=== PATIENT | female | born 1960 | race Hispanic/Latino ===

== ENCOUNTER 2018-02-20 13:18 | Emergency (ER) | payer SELFPAY ==
[2018-02-20 16:20] LABS: Urine Blood NEGATIVE (NEG); Urine Glucose 2+ (NEG); Urine Protein NEGATIVE (NEG); Urine pH 5.5 (5.0-7.0)
[2018-02-20] MEDS ORDERED: MORPHINE 4 MG/ML SYR ONE (16:38)
[2018-02-20] MEDS ORDERED: ONDANSETRON 4 MG/2 ML VIAL ONE (16:38)
[2018-02-20] MEDS ORDERED: NA CHLORIDE 0.9% 1,000 ML ONE (16:39)
[2018-02-20 16:42] LABS: Absolute Lymphocytes (CBC) 2.9 K/uL (0.7-4.9); Absolute Monocytes 0.6 K/uL (0.1-1.3); Absolute Neutrophil 6.2 K/uL (1.8-8.0); Basophils % 0.6 % (0-1.3); Eosinophils % 1.3 % (0-4.4); Hematocrit 40.7 % (36.0-45.0); Lymphocytes % 29.4 % (15.3-44.8); MCH 30.6 pg (27.0-35.0); MPV 9.9 fL (7.6-11.3); Monocytes % 6.1 % (3.3-12.3); RBC Red Blood Cell Count 4.57 M/uL (3.86-4.86)
[2018-02-20 16:51] LABS: Urine Bacteria >50 /HPF (<20); Urine Culture Reflex Order REFLEXED; Urine RBC <5 /HPF (NONE SEEN)
[2018-02-20 16:56] LABS: Bicarbonate 26 mEq/L (21-31); Glucose Level 320 mg/dL (65-120); Lipase 86 U/L (22-51); Sodium Level 134 mEq/L (135-145)
[2018-02-20 17:02] LABS: ALT/SGPT 18 IU/L (10-60); AST/SGOT 21 IU/L (10-42); Albumin 3.8 g/dL (3.2-5.5); Alkaline Phosphatase 81 IU/L (42-121); Amylase Level 124 U/L (28-100); BUN Blood Urea Nitrogen 11 mg/dL (6-20); Bilirubin Direct 0.1 mg/dL (0-0.2); Bilirubin Total 0.4 mg/dL (0.3-1.2); Protein, Total 6.7 g/dL (6.0-8.3)
--- NOTE | 2018-02-20 17:53 | RAD REPORT ---
EXAM DESCRIPTION: CT - Abdomen Pelvis W Contrast - 02/20/2018 5:38 pm CLINICAL HISTORY: Abdominal pain COMPARISON: CT study March 2016 TECHNIQUE: Biphasic, helical CT imaging of the abdomen and pelvis was performed following 100 ml non -ionic IV contrast. Oral contrast was given. All CT scans are performed using dose optimization technique as appropriate and may include automated exposure control or mA/KV adjustment according to patient size. FINDINGS: No suspicious findings in the lung bases. No pericardial thickening or effusion. Liver is borderline fatty infiltrated. No focal liver lesions seen. Spleen and pancreas also without suspicious finding. Gallbladder and biliary tree are also without suspicious finding. Gallstones can be occult. Symmetric renal function is seen with no hydronephrosis or suspicious renal mass. No pyelonephritis o r acute renal parenchymal process. No urinary bladder abnormality. Uterus and ovaries also without romeo spicious finding. No fallopian tube dilatation. No gastric dilatation or gastric wall thickening. A few prominent but nondilated small bowel loops ar e present. This could be an nonspecific enteritis. Moderate stool volume in the colon with no active colon process identifiable. No free air, free fluid or inflammatory stranding. No mass or bulky lymphadenopathy. There is a sm all 2 centimeter, narrow neck hernia to right of midline. This is positioned between the umbilicus an d the scar. No bowel involvement. No congestion or edema. No adrenal abnormality. No suspicious bony findings. IMPRESSION: No obstruction, free air or surgically emergent finding. A few prominent small bowel loops are present and could indicated nonspecific enteritis. There is a small 2 centimeter fat filled hernia just to the right of midline between the umbilicus an d the scar. No significant congestion or edema. This is possibly symptomatic.
--- NOTE | 2018-02-20 18:42 | EDPHYS ---
Physician Documentation [facility] Name: Chasidy Mckenzie Age: 57 yrs Sex: Female : 1960 Arrival Date: 02/20/2018 Time: 13:18 Bed 26 Private MD: Alyssa Arita H ED Physician Bertrand Gongora HPI: 02/20 23:34 This 57 yrs old Female presents to ER via Ambulatory with complaints of kdr Abdominal Pain. 23:34 The patient presents with abdominal pain in the periumbilical area. Onset: The kdr symptoms/episode began/occurred For months if not a year or more. She has seen Dr. Arita for this problem but they claim that he does not examine her and just writes scrips for her to take.. The symptoms radiate to the right flank. Associated signs and symptoms: none. The symptoms are described as achy, burning, intermittent, vague. Modifying factors: The symptoms are alleviated by nothing, the symptoms are aggravated by movement, touching the area. Severity of pain: At its worst the pain was mild moderate just prior to arrival, in the emergency department the pain has improved moderately. The patient has experienced similar episodes in the past, chronically, but today's symptoms are worse, more painful. The patient has been recently seen by a physician: Dr. Arita. 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 - Social history:: Smoking status: Patient/guardian denies using tobacco. - Ebola Screening: : Patient denies exposure to infectious person Patient denies travel to an Ebola-affected area in the 21 days before illness onset. ROS: 23:34 Constitutional: Negative for fever, chills, and weight loss, Eyes: Negative for injury, kdr pain, redness, and discharge, ENT: Negative for injury, pain, and discharge, Neck: Negative for injury, pain, and swelling, Cardiovascular: Negative for chest pain, palpitations, and edema, Respiratory: Negative for shortness of breath, cough, wheezing, and pleuritic chest pain, Back: Negative for injury and pain, : Negative for injury, bleeding, discharge, and swelling, MS/Extremity: Negative for injury and deformity, Skin: Negative for injury, rash, and discoloration, Neuro: Negative for headache, weakness, numbness, tingling, and seizure activity. Psych: Negative for depression, anxiety, suicide ideation, homicidal ideation, and hallucinations, Allergy/Immunology: Negative for hives, rash, and allergies, Endocrine: Negative for neck swelling, polydipsia, polyuria, polyphagia, and marked weight changes, Hematologic/Lymphatic: Negative for swollen nodes, abnormal bleeding, and unusual bruising. 23:34 Constitutional: The patient also c/o tenderness to her left breast and drainage from the left nipple 23:34 Abdomen/GI: Positive for abdominal pain, Negative for abdominal distension, black/tarry stool, rectal pain. 23:34 All other systems are negative. 23:34 All other systems are negative. Exam: 23:34 Constitutional: This is a well developed, well nourished patient who is awake, alert, kdr and in no acute distress. Head/Face: Normocephalic, atraumatic. Eyes: Pupils equal round and reactive to light, extra-ocular motions intact. Lids and lashes normal. Conjunctiva and sclera are non-icteric and not injected. Cornea within normal limits. Periorbital areas with no swelling, redness, or edema. Neck: Trachea midline, no thyromegaly or masses palpated, and no cervical lymphadenopathy. Supple, full range of motion without nuchal rigidity, or vertebral point tenderness. No Meningismus. Chest/axilla: Normal chest wall appearance and motion. Nontender with no deformity. No lesions are appreciated. Palpation of the left breast did not reveail any evidnece of infection, mastitis or masses. I was unable to express and drainage from the nipple Cardiovascular: Regular rate and rhythm with a normal S1 and S2. No gallops, murmurs, or rubs. Normal PMI, no JVD. No pulse deficits. Respiratory: Lungs have equal breath sounds bilaterally, clear to auscultation and percussion. No rales, rhonchi or wheezes noted. No increased work of breathing, no retractions or nasal flaring. Abdomen/GI: Soft, non-tender, with normal bowel sounds. No distension or tympany. No guarding or rebound. No evidence of tenderness throughout. Back: No spinal tenderness. No costovertebral tenderness. Full range of motion. Skin: Warm, dry with normal turgor. Normal color with no rashes, no lesions, and no evidence of cellulitis. MS/ Extremity: Pulses equal, no cyanosis. Neurovascular intact. Full, normal range of motion. Neuro: Awake and alert, GCS 15, oriented to person, place, time, and situation. Cranial nerves II-XII grossly intact. Motor strength 5/5 in all extremities. Sensory grossly intact. Cerebellar exam normal. Normal gait. Psych: Awake, alert, with orientation to person, place and time. Behavior, mood, and affect are within normal limits. Vital Signs: 13:48 BP 137 / 73; Pulse 88; Resp 16; Temp 98.6(TE); Pulse Ox 97% on R/A; Weight 56.7 kg; ss Height 5 ft. 0 in. (152.40 cm); Pain 8/10; 16:00 BP 132 / 77; Pulse 84; Resp 16; Pulse Ox 99% on R/A; kr2 18:00 BP 130 / 74; Pulse 88; Resp 17; Pulse Ox 99% on R/A; kr2 19:00 BP 138 / 80; Pulse 86; Resp 16; Pulse Ox 98% on R/A; kr2 13:48 Body Mass Index 24.41 (56.70 kg, 152.40 cm) ss MDM: 18:42 Patient medically screened. kdr 23:34 Data reviewed: vital signs, nurses notes, lab test result(s), radiologic studies. kdr Counseling: I had a detailed discussion with the patient and/or guardian regarding: the historical points, exam findings, and any diagnostic results supporting the discharge/admit diagnosis, lab results, radiology results, the need for outpatient follow up. Special discussion: Based on the patient's Hx, exam, and Dx evaluation, there is no indication for emergent surgery or inpatient Tx. It is understood by the patient/guardian that if the Sx's persist or worsen they need to return immediately for re-evaluation. I discussed with the patient/guardian in detail that at this point there is no indication for admission to the hospital. It is understood, however, that if the symptoms persist or worsen the patient needs to return immediately for re-evaluation. 02/20 16:18 Order name: Urine Dipstick--Ancillary (enter results); Complete Time: 17:41 02/20 16:30 Order name: Amylase, Serum; Complete Time: 17:41 02/20 16:30 Order name: Basic Metabolic Panel; Complete Time: 17:41 02/20 16:30 Order name: CBC with Diff; Complete Time: 17:41 02/20 16:30 Order name: Creatinine for Radiology; Complete Time: 17:41 02/20 16:30 Order name: Hepatic Function; Complete Time: 17:41 02/20 16:30 Order name: Lipase; Complete Time: 17:41 02/20 16:30 Order name: Urine Microscopic Only; Complete Time: 17:41 02/20 16:32 Order name: CT Abd/Pelvis - W/Contrast; Complete Time: 18:36 kdr 02/20 16:52 Order name: Urine Culture [facility] 02/20 18:21 Order name: Urine Dipstick--Ancillary (enter results) 02/20 16:30 Order name: IV Saline Lock; Complete Time: 16:31 02/20 16:30 Order name: Labs collected and sent; Complete Time: 16:31 02/20 16:31 Order name: Urine Dipstick-Ancillary (obtain specimen); Complete Time: 16:31 02/20 18:25 Order name: Straight Cath - Urine; Complete Time: 18:25 kr2 Administered Medications: 16:41 Drug: NS 0.9% 1000 ml Route: IV; Rate: 1 bolus; Site: right antecubital; kr2 16:41 Drug: morphine 2 mg Route: IVP; Site: right antecubital; kr2 16:41 Drug: Zofran 4 mg Route: IVP; Site: right antecubital; kr2 18:55 Drug: LevaQUIN 500 mg Route: PO; kr2 Disposition: 02/20/18 18:42 Discharged to Home. Impression: Urinary tract infection, site not specified, abdominal hernia. - Condition is Stable. - Discharge Instructions: Urinary Tract Infection, [id number], Antibiotic Use, [id number]. - Prescriptions for Cipro 500 mg Oral Tablet - take 1 tablet by ORAL route every 12 hours for 7 days; 14 tablet. - Medication Reconciliation Form, Thank You Letter, Antibiotic Education form. - Follow up: Alyssa Arita DO; When: 2 - 3 days; Reason: If symptoms return, Further diagnostic work-up, Recheck today's complaints, Continuance of care, Re-evaluation by your physician. - Problem is an ongoing problem. - Symptoms are unchanged. Signatures: Dispatcher [employer] [facility] Bertrand Gongora MD MD kdr Yesy Smith RN RN ss Dora Bhatia RN RN kr2 Corrections: (The following items were deleted from the chart) 18:21 16:52 Urine Culture ordered. [facility] 19:04 18:42 02/20/2018 18:42 Discharged to Home. Impression: Urinary tract infection, site kr2 not specified; abdominal hernia. Condition is Stable. Forms are Medication Reconciliation Form, Thank You Letter, Antibiotic Education, Prescription Opioid Use. Follow up: Alyssa Arita; When: 2 - 3 days; Reason: If symptoms return, Further diagnostic work-up, Recheck today's complaints, Continuance of care, Re-evaluation by your physician. Problem is an ongoing problem. Symptoms are unchanged. kdr
--- NOTE | 2018-02-20 18:42 | ER ---
Nurse's Notes [facility] Name: Chasidy Mckenzie Age: 57 yrs Sex: Female : 1960 Arrival Date: 02/20/2018 Time: 13:18 Bed 26 Private MD: Alyssa Arita H Diagnosis: Urinary tract infection, site not specified;abdominal hernia Presentation: 02/20 13:45 Presenting complaint: Child states: "she has been having pain from her belly button ss around to her R side and sometimes it gets swollen. We can feel it there is like ball." Denies, N/V/D. Symptoms began months ago. Transition of care: patient was not received from another setting of care. Onset of symptoms is unknown. Risk Assessment: Do you want to hurt yourself or someone else? Patient reports no desire to harm self or others. Initial Sepsis Screen: Does the patient meet any 2 criteria? No. Patient's initial sepsis screen is negative. Does the patient have a suspected source of infection? No. Patient's initial sepsis screen is negative. Care prior to arrival: None. 13:45 Method Of Arrival: Ambulatory ss 13:45 Acuity: RYAN 3 ss Triage Assessment: 15:50 General: Appears in no apparent distress. uncomfortable, Behavior is calm, cooperative, kr2 appropriate for age. 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 - Social history:: Smoking status: Patient/guardian denies using tobacco. - Ebola Screening: : Patient denies exposure to infectious person Patient denies travel to an Ebola-affected area in the 21 days before illness onset. Screenin:50 Abuse screen: Denies threats or abuse. Denies injuries from another. Nutritional kr2 screening: No deficits noted. Tuberculosis screening: No symptoms or risk factors identified. Fall Risk None identified. Assessment: 15:50 General: Appears in no apparent distress. uncomfortable, well groomed, well developed, kr2 well nourished, Behavior is calm, cooperative, appropriate for age. Pain: Complains of pain in right upper quadrant and right lower quadrant Pain currently is 8 out of 10 on a pain scale. Quality of pain is described as aching, tender, Pain began gradually, Is continuous, Alleviated by nothing. Aggravated by increased activity. Neuro: Level of Consciousness is awake, alert, obeys commands, Oriented to person, place, time, situation, Appropriate for age. Cardiovascular: Capillary refill < 3 seconds in bilateral fingers Patient's skin is warm and dry. Respiratory: Airway is patent Respiratory effort is even, unlabored, Respiratory pattern is regular, symmetrical. GI: Abdomen is flat, non-distended, Bowel sounds present X 4 quads. Abd is soft X 4 quads Abdomen is tender to palpation in right upper quadrant and right lower quadrant. : Urine is clear. EENT: Oral mucosa is moist. Derm: Skin is intact, is healthy with good turgor, Skin is pink, warm \\T\\ dry. Musculoskeletal: Circulation, motion, and sensation intact. 16:30 Reassessment: Patient appears in no apparent distress at this time. Patient and/or kr2 family updated on plan of care and expected duration. Pain level reassessed. Patient is alert, oriented x 3, equal unlabored respirations, skin warm/dry/pink. 17:30 Reassessment: Patient appears in no apparent distress at this time. Patient and/or kr2 family updated on plan of care and expected duration. Pain level reassessed. Patient is alert, oriented x 3, equal unlabored respirations, skin warm/dry/pink. Patient states feeling better. 18:30 Reassessment: Patient appears in no apparent distress at this time. Patient and/or kr2 family updated on plan of care and expected duration. Pain level reassessed. Patient is alert, oriented x 3, equal unlabored respirations, skin warm/dry/pink. Patient states feeling better. 19:00 Reassessment: Patient appears in no apparent distress at this time. Patient and/or kr2 family updated on plan of care and expected duration. Pain level reassessed. Patient is alert, oriented x 3, equal unlabored respirations, skin warm/dry/pink. Patient states feeling better. Vital Signs: 13:48 BP 137 / 73; Pulse 88; Resp 16; Temp 98.6(TE); Pulse Ox 97% on R/A; Weight 56.7 kg; ss Height 5 ft. 0 in. (152.40 cm); Pain 8/10; 16:00 BP 132 / 77; Pulse 84; Resp 16; Pulse Ox 99% on R/A; kr2 18:00 BP 130 / 74; Pulse 88; Resp 17; Pulse Ox 99% on R/A; kr2 19:00 BP 138 / 80; Pulse 86; Resp 16; Pulse Ox 98% on R/A; kr2 13:48 Body Mass Index 24.41 (56.70 kg, 152.40 cm) ED Course: 13:18 Patient arrived in ED. as 13:19 Alyssa Arita DO is Private Physician. as 13:47 Triage completed. ss 13:48 Arm band placed on right wrist. ss 15:50 Patient has correct armband on for positive identification. Bed in low position. Call kr2 light in reach. Side rails up X 1. Adult w/ patient. Pulse ox on. NIBP on. Door closed. Warm blanket given. Head of bed elevated. 16:04 Bertrand Gongora MD is Attending Physician. kdr 16:20 Dora Bhatia RN is Primary Nurse. kr2 16:31 Inserted saline lock: 20 gauge in right antecubital area, using aseptic technique. ss Blood collected. 17:00 Radiology exam delayed due to lab results not completed at this time. (BUN/Creatinine). nj 17:[address] via wheelchair. nj 17:38 CT completed. Patient tolerated procedure well. Patient moved back from CT. nj 17:38 CT Abd/Pelvis - W/Contrast In Process Unspecified. EDMS 18:24 Straight cath inserted, using sterile technique, Specimen obtained. Returned clear kr2 yellow urine. Patient tolerated well. 18:41 Alyssa Arita DO is Referral Physician. kdr 19:00 No provider procedures requiring assistance completed. IV discontinued, intact, kr2 bleeding controlled, No redness/swelling at site. Administered Medications: 16:41 Drug: NS 0.9% 1000 ml Route: IV; Rate: 1 bolus; Site: right antecubital; kr2 16:41 Drug: morphine 2 mg Route: IVP; Site: right antecubital; kr2 16:41 Drug: Zofran 4 mg Route: IVP; Site: right antecubital; kr2 18:55 Drug: LevaQUIN 500 mg Route: PO; kr2 Outcome: 18:42 Discharge ordered by . kdr 19:00 Discharged to home ambulatory, with family. kr2 19:00 Condition: good 19:00 Discharge instructions given to patient, family, Instructed on discharge instructions, follow up and referral plans. medication usage, Demonstrated understanding of instructions, follow-up care, medications, Prescriptions given X 1. 19:04 Patient left the ED. kr2 Addendum: 02/23/2018 07:20 Addendum: Culture Results: Positive urine culture. No further action required. Bacteria i w sensitive to prescribed antibiotic. Signatures: Dispatcher [employer] EDMS Bertrand Gongora MD MD kdr Martinez, Amelia as Williams, Irene, RN RN Yesy Smith RN RN ss Jordan, Nathan nj Reaves, Karey, RN RN kr2 Corrections: (The following items were deleted from the chart) 02/21 01:20 06 19:30 Reassessment: Patient appears in no apparent distress at this time. Patient kr2 and/or family updated on plan of care and expected duration. Pain level reassessed. Patient is alert, oriented x 3, equal unlabored respirations, skin warm/dry/pink. Patient states feeling better. kr2 02/21 01:22 01:22 LMP N/A - Post-menopause kr2 kr2
[2018-02-20] MEDS ORDERED: levoFLOXacin 500 MG TAB ONE (18:54)
[2018-02-20 20:25] VITALS: BP 137/73; TEMP 98.6; O2SAT 97
[2018-02-20 21:08] LABS: Urine Blood NEGATIVE (NEG); Urine Glucose 2+ (NEG); Urine Protein NEGATIVE (NEG)
== END 2018-02-20 19:04 | disposition home or self-care (01) ==
LOC: ER 13:18
DX: N39.0 Urinary tract infection, site not specified (principal); K46.9 Unspecified abdominal hernia without obstruction or gangrene; I10 Essential (primary) hypertension
CPT/HCPCS: 36415; 51702; 74177; 80048; 80076; 81003; 81015; 82150; 83690; 85025; 87077; 87086; 87088; 87186; 96374; 96375; 99284; J2405; J7030; Q9967

== ENCOUNTER 2018-04-17 14:40 | Emergency (ER) | payer SELFPAY ==
[2018-04-17] MEDS ORDERED: FENTANYL CITR 100 MCG/2 ML ONE (15:28)
[2018-04-17] MEDS ORDERED: ONDANSETRON 4 MG/2 ML VIAL ONE (15:28)
[2018-04-17 15:42] LABS: Urine Blood NEGATIVE (NEG); Urine Glucose 2+ (NEG); Urine Protein NEGATIVE (NEG); Urine Specific Gravity 1.005 (1.005-1.030); Urine pH 5.5 (5.0-7.0)
--- NOTE | 2018-04-17 16:00 | RAD REPORT ---
EXAM DESCRIPTION: US - Abdomen Exam Limited - 04/17/2018 3:50 pm CLINICAL HISTORY: Abdominal pain, right upper quadrant pain COMPARISON: None. FINDINGS: No gallstones, sludge or other abnormalities within the gallbladder lumen. There is no wal l thickening or pericholecystic fluid. No common duct stone or biliary tree dilatation identified. IMPRESSION: Normal gallbladder and biliary tree ultrasound.
[2018-04-17 16:01] LABS: Absolute Lymphocytes (CBC) 2.6 K/uL (0.7-4.9); Absolute Monocytes 0.6 K/uL (0.1-1.3); Absolute Neutrophil 6.4 K/uL (1.8-8.0); Basophils % 0.6 % (0-1.3); Hematocrit 44.9 % (36.0-45.0); Lymphocytes % 26.6 % (15.3-44.8); MCH 30.5 pg (27.0-35.0); MCV 89.9 fL (80-100); MPV 10.8 fL (7.6-11.3); Monocytes % 6.5 % (3.3-12.3)
[2018-04-17 16:23] LABS: Albumin 3.7 g/dL (3.4-5.0); Bilirubin Direct 0.1 mg/dL (0-0.2); Bilirubin Total 0.5 mg/dL (0.2-1.0); Potassium 3.9 mmol/L (3.5-5.1); Protein, Total 7.7 g/dL (6.4-8.2)
[2018-04-17 16:26] LABS: Urine Bacteria <20 /HPF (<20); Urine Culture Reflex Order NOT NEEDED; Urine RBC <5 /HPF (NONE SEEN)
--- NOTE | 2018-04-17 16:32 | RAD REPORT ---
EXAM DESCRIPTION: CT - Stone Protocol - 04/17/2018 4:13 pm CLINICAL HISTORY: Flank pain. ABD PAIN COMPARISON: Abdomen Pelvis W Contrast dated 02/20/2018 TECHNIQUE: Axial images were obtained without oral or IV contrast. Lack of contrast limits solid org an and vascular assessment. The [id number] spans the entirety of the system partially obscuring uppermost abdomen and lung bases. Coronal reformatted images were obtained and reviewed. All CT scans are performed using dose optimization technique as appropriate and may include automated exposure control or mA/KV adjustment according to patient size. FINDINGS: The lower lung briceno are clear. Imaged portions of the liver and spleen show no suspicious findings on non-contrast imaging. The panc reas and adrenal glands are normal. No pathologic lymphadenopathy in the abdomen or pelvis. No urinary tract stones or obstructive uropathy. 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 No bowel obstruction, free air, free fluid or abscess. Normal appendix noted.Moderate fecal retention in the colon. Chronic bilateral spondylolysis at L5-S1 with minimal anterolisthesis. IMPRESSION: No urinary tract stones or obstructive uropathy. Moderate fecal retention.
[2018-04-17] MEDS ORDERED: NA CHLORIDE 0.9% 1,000 ML ONE (16:53)
[2018-04-17] MEDS ORDERED: NA CHLORIDE 0.9% 500 ML ONE (17:47)
[2018-04-17] MEDS ORDERED: KETOROLAC 30 MG/ML INJ ONE (17:52)
[2018-04-17] MEDS ORDERED: INSULIN -REGULAR HUMAN 50 UNIT/0.5 ML ML ONE (19:08)
--- NOTE | 2018-04-17 19:48 | ER ---
Nurse's Notes [facility] Name: Chasidy Mckenzie Age: 58 yrs Sex: Female : 1960 Arrival Date: 04/17/2018 Time: 14:44 Bed 13 Private MD: Diagnosis: Abdominal and pelvic pain;Hyperglycemia, unspecified Presentation: 04/17 14:44 Presenting complaint: Patient states: epigastric, RUQ, RLQ pain with radiation to the sv back. Transition of care: patient was not received from another setting of care. Onset of symptoms was April 14, 2018. Care prior to arrival: None. 14:44 Method Of Arrival: Ambulatory sv 14:44 Acuity: RYAN 3 sv 14:51 Risk Assessment: Do you want to hurt yourself or someone else? Patient reports no tw2 desire to harm self or others. Initial Sepsis Screen: Does the patient meet any 2 criteria? No. Patient's initial sepsis screen is negative. Does the patient have a suspected source of infection? No. Patient's initial sepsis screen is negative. Historical: - Allergies: 14:45 No Known Allergies; sv - Home Meds: 14:52 glimepiride 4 mg Oral tab 1 tab once daily [Active]; lisinopril 5 mg Oral tab 1 tab tw2 once daily [Active]; metformin 1,000 mg Oral tab 1 tab 2 times per day [Active]; - PMHx: 14:45 Diabetes - NIDDM; Hypertension; sv - PSHx: 14:45 ; Hernia repair; abscesses (always admitted and sx is performed); sv - Immunization history:: Adult Immunizations up to date. - Social history:: Smoking status: Patient/guardian denies using tobacco. - Ebola Screening: : No symptoms or risks identified at this time. Screenin:50 Abuse screen: Denies threats or abuse. Denies injuries from another. Nutritional tw2 screening: No deficits noted. Tuberculosis screening: No symptoms or risk factors identified. Fall Risk None identified. Assessment: 14:59 General: Appears in no apparent distress. well groomed, Behavior is calm, cooperative, tw2 appropriate for age. Pain: Complains of pain in epigastric area, right upper and right lower quadrant. Neuro: Level of Consciousness is awake, alert, obeys commands, Oriented to person, place, time, situation. Cardiovascular: Denies chest pain, shortness of breath, Heart tones S1 S2 Patient's skin is warm and dry. Respiratory: Airway is patent Respiratory effort is even, unlabored, Respiratory pattern is regular, symmetrical, Breath sounds are clear bilaterally. GI: Bowel sounds present X 4 quads. Abd is soft X 4 quads Patient currently denies diarrhea, nausea, vomiting. : No signs and/or symptoms were reported regarding the genitourinary system. EENT: No signs and/or symptoms were reported regarding the EENT system. Derm: Skin is intact, is healthy with good turgor, Skin temperature is warm. Musculoskeletal: Range of motion: intact in all extremities. 16:00 Reassessment: Patient appears in no apparent distress at this time. No changes from tw2 previously documented assessment. Patient and/or family updated on plan of care and expected duration. Pain level reassessed. Patient is alert, oriented x 3, equal unlabored respirations, skin warm/dry/pink. 17:25 Reassessment: Patient appears in no apparent distress at this time. Patient and/or kr2 family updated on plan of care and expected duration. Pain level reassessed. Patient is alert, oriented x 3, equal unlabored respirations, skin warm/dry/pink. 18:55 Reassessment: Patient appears in no apparent distress at this time. Patient and/or kr2 family updated on plan of care and expected duration. Pain level reassessed. Patient is alert, oriented x 3, equal unlabored respirations, skin warm/dry/pink. 19:10 Reassessment: Patient appears in no apparent distress at this time. Patient and/or aa1 family updated on plan of care and expected duration. Pain level reassessed. Patient is alert, oriented x 3, equal unlabored respirations, skin warm/dry/pink. Pt medicated for BGL, per MD will d/c once FSBS <400 Patient states feeling better. 19:58 Reassessment: Patient appears in no apparent distress at this time. Patient and/or aa1 family updated on plan of care and expected duration. Pain level reassessed. Patient is alert, oriented x 3, equal unlabored respirations, skin warm/dry/pink. Discussed d/c \T\ f/u instructions with pt \T\ daughter; denies questions or concerns at this time. Vital Signs: 14:45 BP 165 / 74; Pulse 104; Resp 18; Temp 99; Pulse Ox 97% ; Weight 61.23 kg; Height 5 ft. sv 0 in. (152.40 cm); Pain 8/10; 15:29 BP 131 / 68; Pulse 94; Resp 17; Pulse Ox 98% on R/A; tw2 16:00 BP 124 / 60; Pulse 88; Resp 17; Pulse Ox 96% on R/A; tw2 17:25 BP 140 / 71; Pulse 95; Resp 16; Pulse Ox 100% on R/A; kr2 19:30 BP 125 / 73; Pulse 95; Resp 18; Pulse Ox 99% on R/A; aa1 14:45 Body Mass Index 26.37 (61.23 kg, 152.40 cm) sv ED Course: 14:44 Patient arrived in ED. sv 14:45 Triage completed. sv 14:45 Arm band placed on left wrist. sv 14:48 Ariadne Jeffery RN is Primary Nurse. tw2 14:51 Bed in low position. Call light in reach. Pulse ox on. NIBP on. tw2 15:01 Inserted saline lock: 20 gauge in left antecubital area, using aseptic technique. rv 15:15 Bradford Taylor MD is Attending Physician. gs 15:21 Patient taken to ultrasound. via wheelchair. hr 15:50 US Abdomen Limited In Process Unspecified. EDMS 16:[address] jj2 16:13 CT Stone Protocol In Process Unspecified. EDMS 16:22 Report given to RADHA John, 50 mcg Fentanyl in vial given to RADHA John at this time as pt tw2 is still in our ER. 16:35 Notified ED physician of a critical lab result(s). [id number]. la1 19:58 No provider procedures requiring assistance completed. IV discontinued, intact, aa1 bleeding controlled, No redness/swelling at site. Pressure dressing applied. Administered Medications: 15:27 Drug: Zofran 4 mg Route: IVP; Site: left antecubital; tw2 16:02 Follow up: Response: No adverse reaction tw2 15:29 Drug: fentaNYL (PF) 50 mcg Route: IVP; Site: left antecubital; tw2 16:02 Follow up: Response: No adverse reaction; Pain is decreased tw2 16:52 Drug: NS 0.9% 1000 ml Route: IV; Rate: 1 bolus; Site: left antecubital; kr2 17:50 Drug: TORadol 30 mg Route: IVP; Site: left antecubital; kr2 19:12 Follow up: Response: No adverse reaction; Pain is decreased aa1 17:50 Drug: NS 0.9% 500 ml Route: IV; Rate: bolus; Site: left antecubital; kr2 19:12 Follow up: IV Status: Completed infusion aa1 19:10 Drug: Insulin Regular Human 5 units {Co-Signature: brian (Negrita Taylor RN).} Route: IVP; aa1 Site: left antecubital; 19:47 Follow up: Response: No adverse reaction; Blood sugar is lowered aa1 Point of Care Testing: Blood Glucose: 17:42 Blood Glucose: 448 mg/dL; 5 18:23 Blood Glucose: 425 mg/dL; kr2 19:41 Blood Glucose: 320 mg/dL; aj 18:23 provider notified kr2 Ranges: Outcome: 19:47 Discharge ordered by MD. 19:58 Discharged to home ambulatory. aa1 19:58 Condition: good 19:58 Discharge instructions given to patient, Instructed on discharge instructions, follow up and referral plans. medication usage, Demonstrated understanding of instructions, follow-up care, medications. 19:59 Patient left the ED. aa1 Signatures: Dispatcher [employer] Marisela Hunter RN Ashley Alvarado RN RN montse1 Negrita Taylor RN RN aj Jaramillo, Justin jj2 Rod, Haley hr Attema, Lee, RN RN la1 Wise, Tara, RN RN Maria Dolores Mehta Bradford Degroot MD MD Dora Bhatia RN RN kr2 Rico Casas RN RN rv Amanda Myers RN aj Corrections: (The following items were deleted from the chart) 18:25 18:23 Blood Glucose: Blood Glucose Ajpiuoc=392 mg/dL. kr2 kr2
--- NOTE | 2018-04-17 19:48 | EDPHYS ---
Physician Documentation [facility] Name: Chasidy Mckenzie Age: 58 yrs Sex: Female : 1960 Arrival Date: 04/17/2018 Time: 14:44 Bed 13 Private MD: ED Physician Bradford Taylor HPI: 04/17 20:34 This 58 yrs old Female presents to ER via Ambulatory with complaints of gs Abdominal Pain. 20:34 The patient presents with abdominal pain in the right upper quadrant. Onset: The gs symptoms/episode began/occurred 3 day(s) ago, and became persistent. The symptoms radiate to right back. Associated signs and symptoms: Pertinent negatives: nausea and vomiting, diarrhea, vomiting. The symptoms are described as sharp. Modifying factors: The symptoms are alleviated by nothing, the symptoms are aggravated by food. Severity of pain: At its worst the pain was moderate in the emergency department the pain has improved mildly. The patient has experienced similar episodes in the past, a few times. The patient has not recently seen a physician. Historical: - Allergies: 14:45 No Known Allergies; sv - Home Meds: 14:52 glimepiride 4 mg Oral tab 1 tab once daily [Active]; lisinopril 5 mg Oral tab 1 tab tw2 once daily [Active]; metformin 1,000 mg Oral tab 1 tab 2 times per day [Active]; - PMHx: 14:45 Diabetes - NIDDM; Hypertension; sv - PSHx: 14:45 ; Hernia repair; abscesses (always admitted and sx is performed); sv - Immunization history:: Adult Immunizations up to date. - Social history:: Smoking status: Patient/guardian denies using tobacco. - Ebola Screening: : No symptoms or risks identified at this time. ROS: 20:34 All other systems are negative. gs Exam: 20:34 Head/Face: Normocephalic, atraumatic. Eyes: Pupils equal round and reactive to light, gs extra-ocular motions intact. Lids and lashes normal. Conjunctiva and sclera are non-icteric and not injected. Cornea within normal limits. Periorbital areas with no swelling, redness, or edema. ENT: Nares patent. No nasal discharge, no septal abnormalities noted. Tympanic membranes are normal and external auditory canals are clear. Oropharynx with no redness, swelling, or masses, exudates, or evidence of obstruction, uvula midline. Mucous membranes moist. Neck: Trachea midline, no thyromegaly or masses palpated, and no cervical lymphadenopathy. Supple, full range of motion without nuchal rigidity, or vertebral point tenderness. No Meningismus. Chest/axilla: Normal chest wall appearance and motion. Nontender with no deformity. No lesions are appreciated. Cardiovascular: Regular rate and rhythm with a normal S1 and S2. No gallops, murmurs, or rubs. Normal PMI, no JVD. No pulse deficits. Respiratory: Lungs have equal breath sounds bilaterally, clear to auscultation and percussion. No rales, rhonchi or wheezes noted. No increased work of breathing, no retractions or nasal flaring. Back: No spinal tenderness. No costovertebral tenderness. Full range of motion. Skin: Warm, dry with normal turgor. Normal color with no rashes, no lesions, and no evidence of cellulitis. MS/ Extremity: Pulses equal, no cyanosis. Neurovascular intact. Full, normal range of motion. Neuro: Awake and alert, GCS 15, oriented to person, place, time, and situation. Cranial nerves II-XII grossly intact. Motor strength 5/5 in all extremities. Sensory grossly intact. Cerebellar exam normal. Normal gait. 20:34 Constitutional: The patient appears alert, awake. 20:34 Abdomen/GI: Palpation: moderate abdominal tenderness, in the right upper quadrant. Vital Signs: 14:45 BP 165 / 74; Pulse 104; Resp 18; Temp 99; Pulse Ox 97% ; Weight 61.23 kg; Height 5 ft. sv 0 in. (152.40 cm); Pain 8/10; 15:29 BP 131 / 68; Pulse 94; Resp 17; Pulse Ox 98% on R/A; tw2 16:00 BP 124 / 60; Pulse 88; Resp 17; Pulse Ox 96% on R/A; tw2 17:25 BP 140 / 71; Pulse 95; Resp 16; Pulse Ox 100% on R/A; kr2 19:30 BP 125 / 73; Pulse 95; Resp 18; Pulse Ox 99% on R/A; aa1 14:45 Body Mass Index 26.37 (61.23 kg, 152.40 cm) sv MDM: 15:17 Patient medically screened. gs 20:34 Differential diagnosis: AAA, cholecystitis, non-specific abd pain, pancreatitis. Data gs reviewed: vital signs, nurses notes. Response to treatment: the patient's symptoms have markedly improved after treatment, the patient's symptoms have resolved after treatment, the patient's pain is gone, and as a result, I will discharge patient. 04/17 15:04 Order name: Urine Dipstick--Ancillary (enter results); Complete Time: 16:01 04/17 15:18 Order name: Basic Metabolic Panel; Complete Time: 16:37 04/17 15:18 Order name: CBC with Diff; Complete Time: 16:37 04/17 15:18 Order name: Hepatic Function; Complete Time: 16:37 04/17 15:18 Order name: Lipase; Complete Time: 16:37 04/17 15:18 Order name: Urine Microscopic Only; Complete Time: 16:37 04/17 15:18 Order name: US Abdomen Limited; Complete Time: 16:01 04/17 16:01 Order name: CT Stone Protocol; Complete Time: 16:37 04/17 15:18 Order name: IV Saline Lock; Complete Time: 15:23 04/17 15:18 Order name: Labs collected and sent; Complete Time: 15:23 04/17 15:18 Order name: Urine Dipstick-Ancillary (obtain specimen); Complete Time: 15:23 gs Administered Medications: 15:27 Drug: Zofran 4 mg Route: IVP; Site: left antecubital; tw2 16:02 Follow up: Response: No adverse reaction tw2 15:29 Drug: fentaNYL (PF) 50 mcg Route: IVP; Site: left antecubital; tw2 16:02 Follow up: Response: No adverse reaction; Pain is decreased tw2 16:52 Drug: NS 0.9% 1000 ml Route: IV; Rate: 1 bolus; Site: left antecubital; kr2 17:50 Drug: TORadol 30 mg Route: IVP; Site: left antecubital; kr2 19:12 Follow up: Response: No adverse reaction; Pain is decreased aa1 17:50 Drug: NS 0.9% 500 ml Route: IV; Rate: bolus; Site: left antecubital; kr2 19:12 Follow up: IV Status: Completed infusion aa1 19:10 Drug: Insulin Regular Human 5 units {Co-Signature: brian (Negrita Taylor RN).} Route: IVP; aa1 Site: left antecubital; 19:47 Follow up: Response: No adverse reaction; Blood sugar is lowered aa1 Point of Care Testing: Blood Glucose: 17:42 Blood Glucose: 448 mg/dL; mh5 18:23 Blood Glucose: 425 mg/dL; kr2 19:41 Blood Glucose: 320 mg/dL; aj 18:23 provider notified kr2 Ranges: Critical Glucose Levels:Adult <50 mg/dl or >400 mg/dl <40 mg/dl or >180 mg/dl Disposition: 04/17/18 19:47 Discharged to Home. Impression: Abdominal and pelvic pain, Hyperglycemia, unspecified. - Condition is Stable. - Discharge Instructions: Abdominal Pain, Adult, [id number], Hyperglycemia, [id number]. - Medication Reconciliation Form, Thank You Letter, Antibiotic Education, Prescription Opioid Use form. - Follow up: Private Physician; When: 2 - 3 days; Reason: Re-evaluation by your physician. Signatures: Dispatcher [employer] Marisela Hunter RN RN Ashley Gutierrez RN RN aa1 Ariadne Jeffery RN RN tw2 Bradford Taylor MD MD Dora Bhatia RN RN kr2 Negrita torres Corrections: (The following items were deleted from the chart) 19:59 19:47 04/17/2018 19:47 Discharged to Home. Impression: Abdominal and pelvic pain; aa1 Hyperglycemia, unspecified. Condition is Stable. Forms are Medication Reconciliation Form, Thank You Letter, Antibiotic Education, Prescription Opioid Use. Follow up: Private Physician; When: 2 - 3 days; Reason: Re-evaluation by your physician. gs
[2018-04-17 20:09] VITALS: TEMP 99
[2018-04-17 20:13] VITALS: BP 125/73; O2SAT 99
== END 2018-04-17 19:59 | disposition home or self-care (01) ==
LOC: ER 14:40
DX: R10.11 Right upper quadrant pain (principal); R10.2 Pelvic and perineal pain; E11.65 Type 2 diabetes mellitus with hyperglycemia; I10 Essential (primary) hypertension
CPT/HCPCS: 36415; 74176; 76377; 76705; 80048; 80076; 81003; 81015; 82962; 83690; 85025; 96361; 96374; 96375; 99284; J2405; J3010; J7030

== ENCOUNTER 2018-05-03 20:04 | Emergency (ER) | payer SELFPAY ==
[2018-05-03] MEDS ORDERED: ONDANSETRON 4 MG/2 ML VIAL ONE (21:13)
[2018-05-03] MEDS ORDERED: MORPHINE 4 MG/ML SYR ONE (21:13)
[2018-05-03] MEDS ORDERED: NA CHLORIDE 0.9% 1,000 ML ONE (21:13)
--- NOTE | 2018-05-03 21:22 | RAD REPORT ---
EXAM DESCRIPTION: Lachelle Single View05/03/2018 9:11 pm CLINICAL HISTORY: Abdominal pain COMPARISON: May 2017 FINDINGS: The lungs appear clear of acute infiltrate. The heart is normal size IMPRESSION: No acute abnormalities displayed
[2018-05-03 21:39] LABS: Protime INR 0.9
[2018-05-03 21:40] LABS: Absolute Lymphocytes (CBC) 2.3 K/uL (0.7-4.9); Absolute Monocytes 0.6 K/uL (0.1-1.3); Absolute Neutrophil 4.1 K/uL (1.8-8.0); Basophils % 0.5 % (0-1.3); Eosinophils % 1.4 % (0-4.4); Lymphocytes % 32.1 % (15.3-44.8); MCH 30.2 pg (27.0-35.0); MCV 88.7 fL (80-100); Monocytes % 8.1 % (3.3-12.3); RBC Red Blood Cell Count 4.62 M/uL (3.86-4.86)
[2018-05-03] MEDS ORDERED: INSULIN -REGULAR HUMAN 50 UNIT/0.5 ML ML ONE (21:52)
[2018-05-03 22:02] LABS: ALT/SGPT 22 U/L (12-78); AST/SGOT 15 U/L (15-37); Albumin 3.6 g/dL (3.4-5.0); Alkaline Phosphatase 99 U/L (45-117); BUN Blood Urea Nitrogen 8 mg/dL (7-18); Bicarbonate 25 mmol/L (21-32); Bilirubin Direct < 0.1 mg/dL (0-0.2); Bilirubin Total 0.3 mg/dL (0.2-1.0); Lipase 137 U/L (73-393); Magnesium 2.4 mg/dL (1.8-2.4); Potassium 3.8 mmol/L (3.5-5.1); Protein, Total 7.3 g/dL (6.4-8.2); Sodium Level 133 mmol/L (136-145)
[2018-05-03 22:08] LABS: Glucose Level 431 mg/dL (74-106)
[2018-05-03 23:58] LABS: Urine Blood TRACE (NEG); Urine Glucose 3+ (NEG); Urine Protein NEGATIVE (NEG)
--- NOTE | 2018-05-04 00:51 | EDPHYS ---
Physician Documentation [facility] Name: Chasidy Mckenzie Age: 58 yrs Sex: Female : 1960 Arrival Date: 05/03/2018 Time: 20:05 Bed 15 Private MD: ED Physician Bradford Taylor HPI: 05/03 21:00 This 58 yrs old Female presents to ER via Ambulatory with complaints of Side cp Pain, Abdominal Pain. 21:00 The patient presents with abdominal pain in the upper abdomen. cp 21:00 Onset: The symptoms/episode began/occurred last night. cp 21:00 Associated signs and symptoms: Pertinent negatives: nausea, vomiting, and diarrhea, cp chest pain, constipation, fever. 21:00 Severity of pain: in the emergency department the pain is unchanged despite home cp interventions. Historical: - Allergies: 20:38 No Known Allergies; aj - Home Meds: 20:38 glimepiride 4 mg Oral tab 1 tab once daily [Active]; lisinopril 5 mg Oral tab 1 tab aj once daily [Active]; metformin 1,000 mg Oral tab 1 tab 2 times per day [Active]; - PMHx: 20:38 Diabetes - NIDDM; Hypertension; aj - PSHx: 20:38 ; Hernia repair; abscesses (always admitted and sx is performed); aj - Immunization history:: Adult Immunizations up to date. - Social history:: Smoking status: Patient/guardian denies using tobacco. - Ebola Screening: : Patient negative for fever greater than or equal to 101.5 degrees Fahrenheit, and additional compatible Ebola Virus Disease symptoms Patient denies exposure to infectious person Patient denies travel to an Ebola-affected area in the 21 days before illness onset No symptoms or risks identified at this time. ROS: 21:05 Constitutional: Negative for body aches, chills, fever, poor PO intake. cp 21:05 Eyes: Negative for injury, pain, redness, and discharge. cp 21:05 ENT: Negative for drainage from ear(s), ear pain, sore throat, difficulty swallowing, difficulty handling secretions. 21:05 Cardiovascular: Negative for chest pain, edema, palpitations. 21:05 Respiratory: Negative for cough, shortness of breath, wheezing. 21:05 Abdomen/GI: Positive for abdominal pain, nausea, of the right upper quadrant and left upper quadrant, Negative for vomiting, diarrhea, constipation, anorexia, black/tarry stool, rectal bleeding. 21:05 Back: Positive for radiated pain. 21:05 : Negative for urinary symptoms. 21:05 Skin: Negative for cellulitis, rash. 21:05 Neuro: Negative for altered mental status, headache, syncope, near syncope, weakness. 21:05 All other systems are negative. Exam: 21:10 Constitutional: The patient appears in no acute distress, alert, awake, cp non-diaphoretic, non-toxic, well developed, well nourished, uncomfortable. 21:10 Head/Face: Normocephalic, atraumatic. cp 21:10 Eyes: Periorbital structures: appear normal, Pupils: equal, round, and reactive to cp light and accomodation, Extraocular movements: intact throughout, Conjunctiva: normal, no exudate, no injection, Sclera: no appreciated abnormality, Lids and lashes: appear normal, bilaterally. 21:10 ENT: External ear(s): are unremarkable, Nose: is normal, Mouth: Lips: moist, Oral mucosa: pink and intact, moist, Posterior pharynx: is normal, airway is patent, no erythema, no exudate. 21:10 Neck: ROM/movement: is normal, is supple, without pain, no range of motions cp limitations, no nuchal rigidity. 21:10 Chest/axilla: Inspection: normal, Palpation: is normal, no crepitus, no tenderness. 21:10 Cardiovascular: Rate: normal, Rhythm: regular. 21:10 Respiratory: the patient does not display signs of respiratory distress, Respirations: normal, no use of accessory muscles, no retractions, no splinting, no tachypnea, labored breathing, is not present, Breath sounds: are clear throughout, no decreased breath sounds, no stridor, no wheezing. 21:10 Abdomen/GI: Inspection: scar(s), Bowel sounds: active, all quadrants, Palpation: soft, in all quadrants, severe abdominal tenderness, in the right upper quadrant and left upper quadrant, rebound tenderness, is not appreciated, voluntary guarding, is elicited in the right upper quadrant and left upper quadrant. 21:10 Back: pain. 21:10 Skin: cellulitis, is not appreciated, no rash present. 21:10 Neuro: Orientation: to person, place \T\ time. Mentation: lucid, able to follow commands, Cerebellar function: is grossly normal, Motor: moves all fours, strength is normal, Sensation: no obvious gross deficits. 21:45 ECG was reviewed by the Attending Physician. cp Vital Signs: 20:38 BP 147 / 82; Pulse 99; Resp 17; Temp 98.8; Pulse Ox 98% on R/A; Weight 56.7 kg; Height aj 5 ft. 3 in. (160.02 cm); 21:58 BP 150 / 79; Pulse 89; Resp 18; Pulse Ox 100% on R/A; Pain 3/10; mg2 23:32 BP 132 / 74; Pulse 86; Resp 18; Pulse Ox 100% on R/A; Pain 0/10; mg2 05/04 00:47 BP 142 / 74; Pulse 88; Resp 18; Pulse Ox 100% on R/A; Pain 0/10; mg2 01:52 BP 145 / 83; Pulse 80; Resp 18; Pulse Ox 100% on R/A; mg2 05/03 20:38 Body Mass Index 22.14 (56.70 kg, 160.02 cm) aj MDM: 05/03 20:45 Patient medically screened. cp 22:00 Differential diagnosis: AAA, acute coronary syndrome, bowel obstruction, cholecystitis, cp Cholelithiasis, diverticulitis, gastritis, sympomatic leaking abdominal aortic aneurysm, pancreatitis, Peptic Ulcer Disease, Perf. Duodenal Ulcer, Perf. Gastric Ulcer, Pyelonephritis, Ureterolithiasis, urinary tract infection. 23:00 Transition of care: After a detail discussion of the patient's case, care is cp transferred to César Lucero NP. 05/04 00:21 Physician consultation: Jolynn Bird was called at 00:22, was contacted at 00:22, pm1 regarding CT read. Discussed with Dr. Bird in detail the celiac trunk and mesenteric arteries: The flow is wide open and there is no acute or chronic mesenteric ischemia. There would be no need for giving the patient heparin. 00:21 Data reviewed: vital signs. Data interpreted: Pulse oximetry: on room air is 100 %. pm1 Interpretation: normal. 00:50 Counseling: I had a detailed discussion with the patient and/or guardian regarding: the pm1 historical points, exam findings, and any diagnostic results supporting the discharge/admit diagnosis, lab results, radiology results, the need for outpatient follow up, to return to the emergency department if symptoms worsen or persist or if there are any questions or concerns that arise at home. 05/03 21:00 Order name: Basic Metabolic Panel; Complete Time: : 05/03 22:21 Interpretation: Normal except: NA 133; GLUC 431; GFR 74. 05/03 21:00 Order name: CBC with Diff; Complete Time: : 05/03 21:00 Order name: LFT's; Complete Time: : 05/03 22: Interpretation: Normal except: GLOB 3.7; A/G 1.0. 05/03 21:00 Order name: Magnesium; Complete Time: : 05/03 21:00 Order name: PT-INR; Complete Time: : 05/03 21:00 Order name: Ptt, Activated; Complete Time: : 05/03 21:00 Order name: Troponin (emerg Dept Use Only); Complete Time: : 05/03 22: Interpretation: Within normal limits: TROPED < 0.02. 05/03 21:00 Order name: XRAY Chest (1 view); Complete Time: : 05/03 21:23 Interpretation: Report review. 05/03 21:00 Order name: Lipase; Complete Time: : 05/03 21:48 Order name: Urine Dipstick--Ancillary (enter results); Complete Time: 00:01 co 05/03 21:48 Order name: Urine --Ancillary (enter results); Complete Time: 00:01 co 05/03 22:49 Order name: CT Abdomen - Angio: no oral contrast; Complete Time: 21:00 05/03 21:00 Order name: Urine Test (obtain specimen); Complete Time: 21:49 05/03 21:00 Order name: EKG; Complete Time: :00 05/03 21:00 Order name: Cardiac monitoring; Complete Time: : 05/03 21:00 Order name: EKG - Nurse/Tech; Complete Time: 21:49 05/03 21:00 Order name: IV Saline Lock; Complete Time: : 05/03 21:00 Order name: Labs collected and sent; Complete Time: 21:23 cp 05/03 21:00 Order name: O2 Per Protocol; Complete Time: 21:23 cp 05/03 21:00 Order name: O2 Sat Monitoring; Complete Time: 21:23 cp 05/03 21:00 Order name: Urine Dipstick-Ancillary (obtain specimen); Complete Time: 21:49 cp 05/03 21:02 Order name: Accucheck Blood Glucose; Complete Time: 21:49 cp EC/22 21:45 Rate is 84 beats/min. Rhythm is regular. ND interval is normal. QRS interval is normal. cp QT interval is normal. Interpreted by me. Reviewed by me. Administered Medications: : Drug: NS 0.9% 1000 ml Route: IV; Rate: 1 bolus; Site: right antecubital; mg2 05/04 01:54 Follow up: Response: No adverse reaction; IV Status: Completed infusion mg2 05/03 21:23 Drug: morphine 4 mg Route: IVP; Site: right antecubital; mg2 23:34 Follow up: Response: No adverse reaction; Marked relief of symptoms mg2 21:23 Drug: Zofran 4 mg Route: IVP; Site: right antecubital; mg2 23:35 Follow up: Response: No adverse reaction mg2 21:49 Drug: Insulin Regular Human 10 units {Co-Signature: bs1 (Renetta Pacheco RN).} Route: mg2 IVP; Site: right antecubital; 23:34 Follow up: Response: No adverse reaction; Blood sugar is lowered mg2 23:26 Drug: NS 0.9% 1000 ml Route: IV; Rate: 100 ml/hr; Site: left antecubital; mg2 05/04 01:54 Follow up: Response: No adverse reaction; IV Status: Order to discontinue infusion mg2 01:38 Drug: GI Cocktail without - (Maalox Suspension 30 ml, Lidocaine Liquid 2 % 15 mg2 ml) Route: PO; 01:50 Follow up: Response: No adverse reaction; Medication administered at discharge. mg2 01:43 Drug: TORadol 30 mg Route: IVP; Site: left antecubital; mg2 01:50 Follow up: Response: No adverse reaction; Medication administered at discharge. mg2 Point of Care Testing: Blood Glucose: 05/03 21:49 Blood Glucose: 368 mg/dL; mg2 23:32 Blood Glucose: 189 mg/dL; mg2 Ranges: Critical Glucose Levels:Adult <50 mg/dl or >400 mg/dl <40 mg/dl or >180 mg/dl Disposition: 05/04/18 00:51 Discharged to Home. Impression: Unspecified abdominal pain, Hyperglycemia, unspecified. - Condition is Stable. - Discharge Instructions: Abdominal Pain, Adult, Hyperglycemia, Blood Glucose Monitoring, Adult. - Prescriptions for Bentyl 20 mg Oral Tablet - take 1 tablet by ORAL route every 6 hours As needed; 20 tablet. Pepcid 20 mg Oral Tablet - take 1 tablet by ORAL route once daily; 20 tablet. - Medication Reconciliation Form, Thank You Letter, Antibiotic Education, Prescription Opioid Use form. - Follow up: Emergency Department; When: As needed; Reason: Worsening of condition. Follow up: Private Physician; When: 2 - 3 days; Reason: Recheck today's complaints, Continuance of care, Re-evaluation by your physician. - Problem is new. - Symptoms have improved. Addendum: 05/08/2018 17:40 Co-signature as Attending Physician, Bradford Taylor MD. g s Signatures: Dispatcher [employer] [facility] Negrita Taylor RN RN Devante Cueva PA PA cp César Lucero, NAIL KEGGER NAIL KEGGER pm1 Bradford Taylor MD MD Yonathan Stevens RN RN mg2 Renetta Pacheco RN bs1 Corrections: (The following items were deleted from the chart) 05/03 22:54 21:25 Angio Aorta For Dissection+CT.RAD.BRZ ordered. [facility] 05/04 01:54 00:51 05/04/2018 00:51 Discharged to Home. Impression: Unspecified abdominal pain; mg2 Hyperglycemia, unspecified. Condition is Stable. Forms are Medication Reconciliation Form, Thank You Letter, Antibiotic Education, Prescription Opioid Use. Follow up: Emergency Department; When: As needed; Reason: Worsening of condition. Follow up: Private Physician; When: 2 - 3 days; Reason: Recheck today's complaints, Continuance of care, Re-evaluation by your physician. Problem is new. Symptoms have improved. pm1
--- NOTE | 2018-05-04 00:51 | ER ---
Nurse's Notes [facility] Name: Chasidy Mckenzie Age: 58 yrs Sex: Female : 1960 Arrival Date: 05/03/2018 Time: 20:05 Bed 15 Private MD: Diagnosis: Unspecified abdominal pain;Hyperglycemia, unspecified Presentation: 05/03 20:37 Presenting complaint: Patient states: Upper abdominal discomfort since last night. aj Denies N/V/D. Transition of care: patient was not received from another setting of care. Onset of symptoms was May 02, 2018. Risk Assessment: Do you want to hurt yourself or someone else? Patient reports no desire to harm self or others. Initial Sepsis Screen: Does the patient meet any 2 criteria? No. Patient's initial sepsis screen is negative. Does the patient have a suspected source of infection? No. Patient's initial sepsis screen is negative. Care prior to arrival: None. 20:37 Method Of Arrival: Ambulatory aj 20:37 Acuity: RYAN 3 aj Triage Assessment: 20:38 General: Appears in no apparent distress. comfortable, Behavior is calm, cooperative, aj appropriate for age. Pain: Complains of pain in right upper quadrant and left upper quadrant. Neuro: Level of Consciousness is awake, alert, obeys commands, Oriented to person, place, time, situation, Appropriate for age. Respiratory: Airway is patent Respiratory effort is even, unlabored, Respiratory pattern is regular, symmetrical. GI: Abdomen is non-distended, obese, Reports upper abdominal pain. Derm: Skin is intact, is healthy with good turgor, Skin is pink, warm \T\ dry. normal. Historical: - Allergies: 20:38 No Known Allergies; aj - Home Meds: 20:38 glimepiride 4 mg Oral tab 1 tab once daily [Active]; lisinopril 5 mg Oral tab 1 tab aj once daily [Active]; metformin 1,000 mg Oral tab 1 tab 2 times per day [Active]; - PMHx: 20:38 Diabetes - NIDDM; Hypertension; aj - PSHx: 20:38 ; Hernia repair; abscesses (always admitted and sx is performed); aj - Immunization history:: Adult Immunizations up to date. - Social history:: Smoking status: Patient/guardian denies using tobacco. - Ebola Screening: : Patient negative for fever greater than or equal to 101.5 degrees Fahrenheit, and additional compatible Ebola Virus Disease symptoms Patient denies exposure to infectious person Patient denies travel to an Ebola-affected area in the 21 days before illness onset No symptoms or risks identified at this time. Screenin:49 Abuse screen: Denies threats or abuse. Denies injuries from another. Nutritional mg2 screening: No deficits noted. Tuberculosis screening: No symptoms or risk factors identified. Fall Risk IV access (20 points). Assessment: 21:59 General: Appears in no apparent distress. comfortable, Behavior is calm, cooperative. mg2 Pain: Complains of pain in abdomen Pain does not radiate. Pain currently is 4 out of 10 on a pain scale. Quality of pain is described as aching, Pain began gradually, 2-3 days ago. Is intermittent. Neuro: Level of Consciousness is awake, alert, obeys commands, Oriented to person, place, time, situation. Cardiovascular: Capillary refill < 3 seconds Patient's skin is warm and dry. Rhythm is sinus rhythm. Respiratory: Airway is patent Respiratory effort is even, unlabored, Respiratory pattern is regular, symmetrical. GI: Abdomen is flat, non-distended, Reports lower abdominal pain, upper abdominal pain. : No signs and/or symptoms were reported regarding the genitourinary system. EENT: No signs and/or symptoms were reported regarding the EENT system. Derm: Skin is intact, Skin is pink, warm \T\ dry. normal. Musculoskeletal: Circulation, motion, and sensation intact. 23:34 Reassessment: Patient appears in no apparent distress at this time. Patient and/or mg2 family updated on plan of care and expected duration. Pain level reassessed. Patient is alert, oriented x 3, equal unlabored respirations, skin warm/dry/pink. GI: Abd is soft and non tender Abd is non tender. 05/04 01:40 Reassessment: patient for discharge but still on iv fluid. mg2 Vital Signs: 05/03 20:38 BP 147 / 82; Pulse 99; Resp 17; Temp 98.8; Pulse Ox 98% on R/A; Weight 56.7 kg; Height aj 5 ft. 3 in. (160.02 cm); 21:58 BP 150 / 79; Pulse 89; Resp 18; Pulse Ox 100% on R/A; Pain 3/10; mg2 23:32 BP 132 / 74; Pulse 86; Resp 18; Pulse Ox 100% on R/A; Pain 0/10; mg2 05/04 00:47 BP 142 / 74; Pulse 88; Resp 18; Pulse Ox 100% on R/A; Pain 0/10; mg2 01:52 BP 145 / 83; Pulse 80; Resp 18; Pulse Ox 100% on R/A; mg2 05/03 20:38 Body Mass Index 22.14 (56.70 kg, 160.02 cm) aj ED Course: 05/03 20:05 Patient arrived in ED. ds1 20:38 Triage completed. aj 20:38 Arm band placed on left wrist. Patient placed in waiting room, Patient notified of wait aj time. 20:45 Devante Lomas PA is PHCP. cp 20:45 Bradford Taylor MD is Attending Physician. cp 20:46 Yonathan Stevens RN is Primary Nurse. mg2 21:10 X-ray completed. Portable x-ray completed in exam room. Patient tolerated procedure kp1 well. 21:11 XRAY Chest (1 view) In Process Unspecified. EDMS 21:24 Inserted saline lock: 20 gauge in right antecubital area, using aseptic technique. mg2 Blood collected. 21:30 Radiology exam delayed due to lab results not completed at this time. (BUN/Creatinine). mw3 21:55 Radiology exam delayed due to lab results not completed at this time. (BUN/Creatinine). mw3 22:00 Patient has correct armband on for positive identification. Side rails up X 1. Cardiac mg2 monitor on. Pulse ox on. NIBP on. Door closed. Warm blanket given. Pillow given. 22:[address] via wheelchair. 23:00 PHCP role handed off by Devante Lomas PA pm1 23:00 César Lucero NP is PHCP. pm1 23:01 CT Abdomen - Angio: no oral contrast In Process Unspecified. EDMS 23:01 CT completed. Patient tolerated procedure well. Patient moved back from [place]. [place] 05/04 01:53 No provider procedures requiring assistance completed. IV discontinued, intact, mg2 bleeding controlled, No redness/swelling at site. Pressure dressing applied. Administered Medications: 05/03 21:22 Drug: NS 0.9% 1000 ml Route: IV; Rate: 1 bolus; Site: right antecubital; mg2 05/04 01:54 Follow up: Response: No adverse reaction; IV Status: Completed infusion mg2 05/03 21:23 Drug: morphine 4 mg Route: IVP; Site: right antecubital; mg2 23:34 Follow up: Response: No adverse reaction; Marked relief of symptoms mg2 21:23 Drug: Zofran 4 mg Route: IVP; Site: right antecubital; mg2 23:35 Follow up: Response: No adverse reaction mg2 21:49 Drug: Insulin Regular Human 10 units {Co-Signature: bs1 (Renetta Pacheco RN).} Route: mg2 IVP; Site: right antecubital; 23:34 Follow up: Response: No adverse reaction; Blood sugar is lowered mg2 23:26 Drug: NS 0.9% 1000 ml Route: IV; Rate: 100 ml/hr; Site: left antecubital; mg2 05/04 01:54 Follow up: Response: No adverse reaction; IV Status: Order to discontinue infusion mg2 01:38 Drug: GI Cocktail without - (Maalox Suspension 30 ml, Lidocaine Liquid 2 % 15 mg2 ml) Route: PO; 01:50 Follow up: Response: No adverse reaction; Medication administered at discharge. mg2 01:43 Drug: TORadol 30 mg Route: IVP; Site: left antecubital; mg2 01:50 Follow up: Response: No adverse reaction; Medication administered at discharge. mg2 Point of Care Testing: Blood Glucose: 05/03 21:49 Blood Glucose: 368 mg/dL; mg2 23:32 Blood Glucose: 189 mg/dL; mg2 Ranges: Outcome: 05/04 00:51 Discharge ordered by . pm1 01:53 Discharged to home ambulatory, with family. mg2 01:53 Condition: stable 01:53 Discharge instructions given to patient, family, Instructed on discharge instructions, follow up and referral plans. medication usage, Demonstrated understanding of instructions, follow-up care, medications, Prescriptions given X 2. 01:54 Patient left the ED. mg2 Signatures: Dispatcher [employer] EDMS Negrita Taylor RN RN aj Hagler, Ervin eh Sanford, Demi ds1 Devante Lomas PA PA cp César Lucero, [employer] pm1 Jorge Sterling Kathy kp1 Yonathan Stevens RN RN mg2 Angelita Simms mw3 Renetta Pacheco RN bs1 Corrections: (The following items were deleted from the chart) 05/03 22:50 22:[address] via stretcher. [facility]
[2018-05-04] MEDS ORDERED: MAGNE/ALUM HYDROXD 30 ML UCUP ONE (01:38)
[2018-05-04] MEDS ORDERED: LIDOCAINE VISCOUS 2% SOLN 15 ML UDC ONE (01:38)
[2018-05-04] MEDS ORDERED: KETOROLAC 30 MG/ML INJ ONE (01:39)
[2018-05-04 02:00] VITALS: TEMP 98.8
[2018-05-04 02:01] VITALS: O2SAT 100
[2018-05-04 02:04] VITALS: BP 145/83
--- NOTE | 2018-05-04 09:03 | RAD REPORT ---
EXAM DESCRIPTION: CT - Abdomen Angio - 05/03/2018 11:01 pm CLINICAL HISTORY: Chest pain radiating to the back. ABD PAIN COMPARISON: [facility] Protocol dated 04/17/2018 TECHNIQUE: CT angiography of the abdominal aorta was performed with MIPs. All CT scans are performed using dose optimization technique as appropriate and may include automated exposure control or mA/KV adjustment according to patient size. FINDINGS: The abdominal aorta appears normal in size and imaging appearance without evidence of diss ection or aneurysm. Approximately 20-30% narrowing of the proximal celiac artery is seen caused by noncalcified plaque. A pproximate 50% narrowing of the proximal SMA noted related to noncalcified plaque and mural thrombus. CARMEN appears patent. Renal arteries are widely patent. Distal blood flow to the gut appears maintaine d. The liver demonstrates no focal mass or biliary dilatation.The spleen, pancreas, adrenal glands and k idneys are within normal limits for arterial phase imaging. No bowel obstruction, free fluid or abscess.No pathologic enlarged lymphadenopathy identified. Moderate lower lumbar degenerative changes. IMPRESSION: No acute abdominal aortic finding. 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 SMA narrowing appears more significant estima alex at 50%.
--- NOTE | 2018-05-04 16:30 | EKG ---
Test Date: 2018-05-03 Test Time: 21:38:14 Furnace Combustion Analyst: MG MEASUREMENT RESULTS: Intervals: Rate: 84 UT: 162 QRSD: 76 QT: 368 QTc: 434 Stevens: P: 33 UT: 162 QRS: 30 T: 25 INTERPRETIVE STATEMENTS: Normal sinus rhythm Normal ECG Compared to ECG 05/20/2017 22:49:34 Right-axis deviation no longer present Electronically Signed On 05-04-18 16:27:37 CDT by Raul Napoles
== END 2018-05-04 01:54 | disposition home or self-care (01) ==
LOC: ER 20:04
DX: E11.65 Type 2 diabetes mellitus with hyperglycemia (principal); I10 Essential (primary) hypertension
CPT/HCPCS: 36415; 71045; 74175; 80048; 80076; 81003; 81025; 82962; 83690; 83735; 84484; 85025; 85610; 85730; 93005; 99285; J2405; J7030; Q9967

== ENCOUNTER 2019-05-11 17:05 | Emergency (ER) | payer SELFPAY ==
[2019-05-11] MEDS ORDERED: MORPHINE 4 MG/ML SYR ONE (17:46)
[2019-05-11] MEDS ORDERED: NA CHLORIDE 0.9% 1,000 ML ONE (17:46)
[2019-05-11] MEDS ORDERED: ONDANSETRON 4 MG/2 ML VIAL ONE (17:46)
[2019-05-11 18:14] LABS: Absolute Lymphocytes (CBC) 3.1 K/uL (0.7-4.9); Basophils % 0.8 % (0-1.3); Hematocrit 40.5 % (36.0-45.0); Lymphocytes % 31.8 % (15.3-44.8); MPV 9.4 fL (7.6-11.3); RBC Red Blood Cell Count 4.53 M/uL (3.86-4.86)
[2019-05-11 18:29] LABS: Urine Blood NEGATIVE (NEG); Urine Glucose 2+ (NEG); Urine Protein NEGATIVE (NEG); Urine Specific Gravity 1.005 (1.005-1.030); Urine pH 5.5 (5.0-7.0)
[2019-05-11 18:32] LABS: Albumin 3.7 g/dL (3.4-5.0); Bilirubin Direct 0.1 mg/dL (0-0.2); Bilirubin Total 0.5 mg/dL (0.2-1.0); Potassium 3.8 mmol/L (3.5-5.1); Protein, Total 7.1 g/dL (6.4-8.2)
[2019-05-11 18:33] LABS: Urine Bacteria >50 /HPF (<20); Urine Culture Reflex Order REFLEXED; Urine RBC NONE SEEN /HPF (NONE SEEN)
--- NOTE | 2019-05-11 19:11 | RAD REPORT ---
EXAM DESCRIPTION: CT - Abdomen Pelvis W Contrast - 05/11/2019 6:53 pm CLINICAL HISTORY: Abdominal pain with nausea. COMPARISON: April 2018 TECHNIQUE: Computed axial tomography of the abdomen pelvis was obtained. 100 cc Isovue-300 was admin istered intravenously. Oral contrast was not requested which limits evaluation of bowel. All CT scans are performed using dose optimization technique as appropriate and may include automated exposure control or mA/KV adjustment according to patient size. FINDINGS: The liver, spleen, pancreas, adrenal and kidneys appear unremarkable. There is no evidence of diverticulitis. Normal appendix Incisional hernia to the right of midline within the mid pelvis contains fat. The neck measures 1 castro timeter. It is unchanged The wall of several loops of jejunum are mildly thickened IMPRESSION: Incisional hernia to the right of midline within the mid pelvis contains fat. The neck m easures 1 centimeter. It is unchanged Mild thickening of the wall of several loops of jejunum may indicate an enteritis
[2019-05-11] MEDS ORDERED: MORPHINE 2 MG/ML SYR ONE (19:29)
[2019-05-11] MEDS ORDERED: CEFTRIAXONE/SWI 1gm 1 GM/10 ML SYR ONE (20:37)
--- NOTE | 2019-05-11 21:00 | ER ---
Nurse's Notes [facility] Name: Chasidy Mckenzie Age: 59 yrs Sex: Female : 1960 Arrival Date: 05/11/2019 Time: 17:08 Bed 18 Private MD: Diagnosis: Urinary tract infection, site not specified;Incisional hernia without obstruction or gangrene Presentation: 05/11 17:19 Presenting complaint: Child states: umbilical pain that radiates to the back, hx mx sv umbilical hernias for 1.5 years. Transition of care: patient was not received from another setting of care. Onset of symptoms was 2016. Care prior to arrival: None. 17:19 Method Of Arrival: Ambulatory sv 17:19 Acuity: RYAN 3 sv 17:45 Risk Assessment: Do you want to hurt yourself or someone else? Patient reports no em desire to harm self or others. Initial Sepsis Screen: Does the patient meet any 2 criteria? No. Patient's initial sepsis screen is negative. Does the patient have a suspected source of infection? No. Patient's initial sepsis screen is negative. Triage Assessment: 17:19 General: Appears in no apparent distress. uncomfortable, Behavior is calm, cooperative, sv appropriate for age. Pain: Complains of pain in umbilical area Pain radiates to back Pain currently is 10 out of 10 on a pain scale. Neuro: Level of Consciousness is awake, alert, obeys commands, Oriented to person, place, time, situation, Gait is steady. Respiratory: Respiratory effort is even, unlabored, Respiratory pattern is regular, symmetrical. GI: Reports umbilical pain. Historical: - Allergies: 17:20 No Known Allergies; sv - PMHx: 17:20 Diabetes - NIDDM; Hypertension; sv - PSHx: 17:20 ; Hernia repair; abscesses (always admitted and sx is performed); sv - Immunization history:: Adult Immunizations up to date. - Social history:: Smoking status: Patient/guardian denies using tobacco, Patient/guardian denies using alcohol, street drugs. - Ebola Screening: : Patient negative for fever greater than or equal to 101.5 degrees Fahrenheit, and additional compatible Ebola Virus Disease symptoms Patient denies exposure to infectious person Patient denies travel to an Ebola-affected area in the 21 days before illness onset. Screenin:45 Abuse screen: Denies threats or abuse. Nutritional screening: No deficits noted. em Tuberculosis screening: No symptoms or risk factors identified. Fall Risk None identified. Assessment: 17:45 General: Appears in no apparent distress. comfortable, Behavior is calm, cooperative, em Denies fever. Pain: Complains of pain in abdomen and umbilical area. Neuro: Level of Consciousness is awake, alert, obeys commands, Oriented to person, place, time, situation. Cardiovascular: Capillary refill < 3 seconds Patient's skin is warm and dry. Respiratory: Airway is patent Respiratory effort is even, unlabored, Respiratory pattern is regular, symmetrical. GI: Abdomen is flat, Bowel sounds present X 4 quads. Abd is soft X 4 quads Abdomen is tender to palpation in umbilical area Reports nausea, Patient currently denies diarrhea, vomiting. : Denies burning with urination. Derm: Skin is intact, is healthy with good turgor, Skin is pink, warm \T\ dry. Musculoskeletal: Capillary refill < 3 seconds, Range of motion: intact in all extremities. 19:25 General: Appears in no apparent distress. uncomfortable, Behavior is calm, cooperative, rr5 appropriate for age. Pain: Complains of pain in abdomen Pain does not radiate. Pain currently is 7 out of 10 on a pain scale. Quality of pain is described as aching, Pain began gradually, Is intermittent. Neuro: Level of Consciousness is awake, alert, obeys commands, Oriented to person, place, time, situation, Appropriate for age. Cardiovascular: Capillary refill < 3 seconds Patient's skin is warm and dry. Respiratory: Airway is patent Respiratory effort is even, unlabored, Respiratory pattern is regular, symmetrical. GI: Abdomen is flat, Abd is soft Abdomen is tender to palpation Reports lower abdominal pain, nausea, Patient currently denies diarrhea. : No signs and/or symptoms were reported regarding the genitourinary system. EENT: No signs and/or symptoms were reported regarding the EENT system. Derm: Skin is intact, is healthy with good turgor, Skin is pink, warm \T\ dry. Musculoskeletal: Circulation, motion, and sensation intact. Capillary refill < 3 seconds. 19:25 Reassessment: patient complaining of abdominal pain. ED provider aware with order made rr5 and carried out. 20:19 Reassessment: Patient appears in no apparent distress at this time. Patient and/or rr5 family updated on plan of care and expected duration. Pain level reassessed. Patient is alert, oriented x 3, equal unlabored respirations, skin warm/dry/pink. Patient states feeling better. Patient states symptoms have improved. 20:40 Reassessment: Patient appears in no apparent distress at this time. Patient is alert, rr5 oriented x 3, equal unlabored respirations, skin warm/dry/pink. reassess by ED provider for discharge. Patient denies pain at this time. Patient states feeling better. Patient states symptoms have improved. 21:18 Reassessment: Patient appears in no apparent distress at this time. Patient is alert, rr5 oriented x 3, equal unlabored respirations, skin warm/dry/pink. discharge instruction given and explained without complaints made. Patient denies pain at this time. Patient states feeling better. Patient states symptoms have improved. Vital Signs: 17:20 BP 147 / 76; Pulse 100; Resp 18; Temp 98.4; Pulse Ox 100% ; Weight 68.04 kg; Height 5 sv ft. 3 in. (160.02 cm); Pain 10/10; 18:30 BP 168 / 76; Pulse 90; Resp 16; Pulse Ox 100% on R/A; Pain 0/10; em 19:25 BP 164 / 78; Pulse 88; Resp 17; Temp 98.2; Pulse Ox 99% ; Pain 7/10; rr5 20:39 BP 143 / 69; Pulse 85; Resp 16; Pulse Ox 99% ; Pain 0/10; rr5 17:20 Body Mass Index 26.57 (68.04 kg, 160.02 cm) sv ED Course: 17:08 Patient arrived in ED. mr 17:19 Triage completed. sv 17:20 Arm band placed on. sv 17:22 Devante Lomas PA is PHCP. cp 17:22 Bertrand Gongora MD is Attending Physician. cp 17:24 Garrick Sage LVN is Primary Nurse. em 17:40 Radiology exam delayed due to lab results not completed at this time. (BUN/Creatinine). vm2 17:45 Patient has correct armband on for positive identification. Placed in gown. Bed in low em position. Call light in reach. Pulse ox on. NIBP on. 18:00 Initial lab(s) drawn, by me, sent to lab. Inserted saline lock: 22 gauge in left em antecubital area, using aseptic technique. Blood collected. 18:12 Radiology exam delayed due to lab results not completed at this time. (BUN/Creatinine). vm2 18:49 CT completed. Patient tolerated procedure well. Patient moved back from CT. vm2 18:54 CT Abd/Pelvis - IV Contrast Only In Process Unspecified. EDMS 20:56 Olivier Sweet MD is Referral Physician. cp 21:18 No provider procedures requiring assistance completed. IV discontinued, intact, rr5 bleeding controlled, No redness/swelling at site. Pressure dressing applied. Administered Medications: 18:00 Drug: NS 0.9% 1000 ml Route: IV; Rate: 1 bolus; Site: left antecubital; iw 18:02 Drug: Zofran 4 mg Route: IVP; Site: left antecubital; iw 18:59 Follow up: Response: No adverse reaction em 18:04 Drug: morphine 2 mg Route: IVP; Site: left antecubital; iw 18:59 Follow up: Response: No adverse reaction; Marked relief of symptoms; Pain is decreased em 18:19 Not Given (Other Intervention Used): morphine 4 mg IVP once; RASS on ADMIN: Combtv4, iw Very Agttd3, Agttd2, Rstlss1, AlertClm0, Drwsy-1, Lt Sdtn-2, Mod Sdtn-3, Dp Sdtn-4, UnArsble-5 19:33 Drug: morphine 2 mg {Note: RASS 0.} Route: IVP; Site: left antecubital; rr5 21:20 Follow up: Response: No adverse reaction; RASS: Alert and Calm (0) rr5 20:39 Drug: Rocephin 1 grams Route: IV; Rate: bolus; Site: left antecubital; rr5 21:20 Follow up: Response: No adverse reaction; IV Status: Completed infusion; IV Intake: [id number] Point of Care Testing: Blood Glucose: 21:07 Blood Glucose: 238 mg/dL; rr5 Ranges: Intake: 21:20 IV: 10ml; Total: 10ml. rr5 Outcome: 20:57 Discharge ordered by . cp 21:18 Discharged to home ambulatory, with family. rr5 21:18 Condition: stable 21:18 Discharge instructions given to patient, family, Instructed on discharge instructions, follow up and referral plans. medication usage, Demonstrated understanding of instructions, follow-up care, medications, Prescriptions given X 3. 21:20 Patient left the ED. rr5 Addendum: 05/15/2019 10:06 Addendum: Culture Results: Positive urine culture. Bacteria is resistant to, has s s intermediate sensitivity, or is not tested against prescribed antibiotics. Report given to LILI for further evaluation and then to financial officer for follow up with patient. 15:49 Addendum: Culture Results: Phone call Attempt #1 attempted to call patient as ROLAND Vázquez recommended Augmentin 875 mg 1 tab PO BID x 10 days. Number on record is not a working number. Certified letter sent to listed address for patient. Signatures: Dispatcher [employer] Marisela Hunter, RN RN marcelle Josie Posadas, Garrick, [facility] SPECIALIST [facility] Karen Cruz RN RN iw Smirch, Shelby, RN RN ss Page, Corey, PA PA cp McGuire, Victoria [facility] Akil Mccann RN RN rr5
--- NOTE | 2019-05-11 21:00 | EDPHYS ---
Physician Documentation [facility] Name: Chasidy Mckenzie Age: 59 yrs Sex: Female : 1960 Arrival Date: 05/11/2019 Time: 17:08 Bed 18 Private MD: ED Physician Bertrand Gongora HPI: 05/11 17:45 This 59 yrs old Female presents to ER via Ambulatory with complaints of cp Abdominal Pain, Back Pain. 17:45 The patient presents with abdominal pain in the lower abdomen, in the periumbilical cp area. 17:45 The symptoms radiate to cp 17:45 Associated signs and symptoms: Pertinent negatives: blood in stools, chest pain, cp diarrhea, dysuria, fever, vomiting. Severity of pain: in the emergency department the pain is unchanged despite home interventions. Patient reports history of hernia for 1 and 1/2 years and history of hernia repair. Historical: - Allergies: 17:20 No Known Allergies; sv - PMHx: 17:20 Diabetes - NIDDM; Hypertension; sv - PSHx: 17:20 ; Hernia repair; abscesses (always admitted and sx is performed); sv - Immunization history:: Adult Immunizations up to date. - Social history:: Smoking status: Patient/guardian denies using tobacco, Patient/guardian denies using alcohol, street drugs. - Ebola Screening: : Patient negative for fever greater than or equal to 101.5 degrees Fahrenheit, and additional compatible Ebola Virus Disease symptoms Patient denies exposure to infectious person Patient denies travel to an Ebola-affected area in the 21 days before illness onset. ROS: 18:00 Constitutional: Negative for body aches, chills, fever, poor PO intake. cp 18:00 Eyes: Negative for injury, pain, redness, and discharge. cp 18:00 ENT: Negative for drainage from ear(s), sore throat, difficulty swallowing, difficulty cp handling secretions. 18:00 Cardiovascular: Negative for chest pain, edema, palpitations. 18:00 Respiratory: Negative for cough, shortness of breath, wheezing. 18:00 Abdomen/GI: Positive for abdominal pain, Negative for vomiting, diarrhea, constipation, black/tarry stool, rectal bleeding. 18:00 : Negative for urinary symptoms, vaginal bleeding. 18:00 Skin: Negative for cellulitis, rash. 18:00 Neuro: Negative for altered mental status, headache, weakness. 18:00 Back: Positive for radiated pain. cp 18:00 All other systems are negative. cp Exam: 18:10 Constitutional: The patient appears in no acute distress, alert, awake, non-toxic, well cp developed, well nourished. 18:10 Head/Face: Normocephalic, atraumatic. cp 18:10 Eyes: Periorbital structures: appear normal, Conjunctiva: normal, no exudate, no injection, Sclera: no appreciated abnormality, Lids and lashes: appear normal, bilaterally. 18:10 ENT: External ear(s): are unremarkable, Nose: is normal, Mouth: Lips: moist, Oral mucosa: pink and intact, moist, Posterior pharynx: is normal, airway is patent, no erythema, no exudate. 18:10 Chest/axilla: Inspection: normal, Palpation: is normal, no crepitus, no tenderness. 18:10 Cardiovascular: Rate: tachycardic, Rhythm: regular, Edema: is not appreciated, JVD: is not appreciated. 18:10 Respiratory: the patient does not display signs of respiratory distress, Respirations: normal, no use of accessory muscles, no retractions, no splinting, no tachypnea, labored breathing, is not present, Breath sounds: are clear throughout, no decreased breath sounds, no stridor, no wheezing. 18:10 Abdomen/GI: Inspection: abdomen appears normal, Bowel sounds: active, all quadrants, Palpation: soft, in all quadrants, moderate abdominal tenderness, in the right lower quadrant and left lower quadrant, rebound tenderness, is not appreciated, involuntary guarding, is not appreciated. 18:10 Back: CVA tenderness, is absent. 18:10 Skin: cellulitis, is not appreciated, no rash present. Vital Signs: 17:20 BP 147 / 76; Pulse 100; Resp 18; Temp 98.4; Pulse Ox 100% ; Weight 68.04 kg; Height 5 sv ft. 3 in. (160.02 cm); Pain 10/10; 18:30 BP 168 / 76; Pulse 90; Resp 16; Pulse Ox 100% on R/A; Pain 0/10; em 19:25 BP 164 / 78; Pulse 88; Resp 17; Temp 98.2; Pulse Ox 99% ; Pain 7/10; rr5 20:39 BP 143 / 69; Pulse 85; Resp 16; Pulse Ox 99% ; Pain 0/10; rr5 17:20 Body Mass Index 26.57 (68.04 kg, 160.02 cm) sv MDM: 17:28 Patient medically screened. cp 18:00 Differential diagnosis: appendicitis, bowel obstruction, cholecystitis, Cholelithiasis, cp gastritis, non-specific abd pain, pancreatitis, Peptic Ulcer Disease, Perf. Duodenal Ulcer, Perf. Gastric Ulcer, Pyelonephritis, Ureterolithiasis, urinary tract infection. 20:55 Data reviewed: vital signs, nurses notes, lab test result(s), radiologic studies, CT cp scan. 20:55 Counseling: I had a detailed discussion with the patient and/or guardian regarding: the cp historical points, exam findings, and any diagnostic results supporting the discharge/admit diagnosis, lab results, radiology results, the need for outpatient follow up, a general surgeon, to return to the emergency department if symptoms worsen or persist or if there are any questions or concerns that arise at home. Response to treatment: the patient's symptoms have markedly improved after treatment, and as a result, I will discharge patient. 20:57 Special discussion: Based on the patient's Hx, exam, and Dx evaluation, there is no cp indication for emergent surgery or inpatient Tx. It is understood by the patient/guardian that if the Sx's persist or worsen they need to return immediately for re-evaluation. 05/11 17:37 Order name: Urine Microscopic Only; Complete Time: 20:25 cp 05/11 17:37 Order name: Basic Metabolic Panel; Complete Time: 20:25 cp 05/11 17:37 Order name: CBC with Diff; Complete Time: 20:25 cp 05/11 17:37 Order name: Creatinine for Radiology; Complete Time: 20:25 cp 05/11 17:37 Order name: Hepatic Function; Complete Time: 20:25 cp 05/11 17:37 Order name: Lipase; Complete Time: 20:25 cp 05/11 17:39 Order name: CT Abd/Pelvis - IV Contrast Only; Complete Time: 20:25 cp 05/11 18:20 Order name: Urine Dipstick--Ancillary (enter results); Complete Time: 20:25 eb 05/11 18:34 Order name: Urine Culture EDMS 05/11 17:37 Order name: Urine Dipstick-Ancillary (obtain specimen); Complete Time: 18:09 cp 05/11 17:37 Order name: IV Saline Lock; Complete Time: 18:09 cp 05/11 17:37 Order name: Labs collected and sent; Complete Time: 18:09 cp 05/11 20:58 Order name: Accucheck Blood Glucose; Complete Time: 21:07 cp Administered Medications: 18:00 Drug: NS 0.9% 1000 ml Route: IV; Rate: 1 bolus; Site: left antecubital; iw 18:02 Drug: Zofran 4 mg Route: IVP; Site: left antecubital; iw 18:59 Follow up: Response: No adverse reaction em 18:04 Drug: morphine 2 mg Route: IVP; Site: left antecubital; iw 18:59 Follow up: Response: No adverse reaction; Marked relief of symptoms; Pain is decreased em 18:19 Not Given (Other Intervention Used): morphine 4 mg IVP once; RASS on ADMIN: Combtv4, iw Very Agttd3, Agttd2, Rstlss1, AlertClm0, Drwsy-1, Lt Sdtn-2, Mod Sdtn-3, Dp Sdtn-4, UnArsble-5 19:33 Drug: morphine 2 mg {Note: RASS 0.} Route: IVP; Site: left antecubital; rr5 21:20 Follow up: Response: No adverse reaction; RASS: Alert and Calm (0) rr5 20:39 Drug: Rocephin 1 grams Route: IV; Rate: bolus; Site: left antecubital; rr5 21:20 Follow up: Response: No adverse reaction; IV Status: Completed infusion; IV Intake: [id number] Point of Care Testing: Blood Glucose: 21:07 Blood Glucose: 238 mg/dL; rr5 Ranges: Critical Glucose Levels:Adult <50 mg/dl or >400 mg/dl <40 mg/dl or >180 mg/dl Disposition: 05/11/19 20:57 Discharged to Home. Impression: Urinary tract infection, site not specified, Incisional hernia without obstruction or gangrene. - Condition is Stable. - Discharge Instructions: Hernia, Adult, Urinary Tract Infection, Adult. - Prescriptions for Zofran 4 mg Oral Tablet - take 1 tablet by ORAL route every 12 hours As needed; 20 tablet. Cipro 500 mg Oral Tablet - take 1 tablet by ORAL route every 12 hours for 7 days; 14 tablet. Tramadol 50 mg Oral Tablet - take 1 tablet by ORAL route every 8 hours as needed; 12 tablet. - Medication Reconciliation Form, Thank You Letter, Antibiotic Education, Prescription Opioid Use form. - Work release form (05/11/19 21:56). ar5 - Follow up: Private Physician; When: 2 - 3 days; Reason: abdominal pain. Follow up: Olivier Sweet MD; When: 2 - 3 days; Reason: hernia repair. - Problem is new. - Symptoms have improved. Addendum: 05/14/2019 09:33 Co-signature as Attending Physician, Bertrand Gongora MD I agree with the assessment and k dr plan of care. Signatures: Dispatcher [employer] EDMarisela Rose RN RN sv Rittger, Kevin, MD MD [facility] Karen Joseph RN RN Devante Lomas PA PA cp Roque, Raymond, RN RN rr5 Garrick Sage LVN, Autumn ar5 Corrections: (The following items were deleted from the chart) 05/11 21:11 20:57 05/11/2019 20:57 Discharged to Home. Impression: Urinary tract infection, site cp not specified. Condition is Stable. Forms are Medication Reconciliation Form, Thank You Letter, Antibiotic Education, Prescription Opioid Use. Follow up: Private Physician; When: 2 - 3 days; Reason: abdominal pain. Follow up: Olivier Sweet; When: 2 - 3 days; Reason: hernia repair. Problem is new. Symptoms have improved. cp 21:20 21:11 05/11/2019 20:57 Discharged to Home. Impression: Urinary tract infection, site rr5 not specified; Incisional hernia without obstruction or gangrene. Condition is Stable. Forms are Medication Reconciliation Form, Thank You Letter, Antibiotic Education, Prescription Opioid Use. Follow up: Private Physician; When: 2 - 3 days; Reason: abdominal pain. Follow up: Olivier Sweet; When: 2 - 3 days; Reason: hernia repair. Problem is new. Symptoms have improved. cp 05/12 19:35 05/11 18:00 Back: Negative for radiated pain, cp cp 08/31 19:35 08 18:00 All other systems are negative, cp cp
[2019-05-11 21:36] VITALS: TEMP 98.2; O2SAT 99
[2019-05-11 21:37] VITALS: BP 143/69
== END 2019-05-11 21:20 | disposition home or self-care (01) ==
LOC: ER 17:05
DX: N39.0 Urinary tract infection, site not specified (principal); K43.2 Incisional hernia without obstruction or gangrene
CPT/HCPCS: 36415; 74177; 80048; 80076; 81003; 81015; 82962; 83690; 85025; 87077; 87086; 87088; 87186; 96365; 96375; 99284; J0696; J2270; J2405; J7030; Q9967

== ENCOUNTER 2019-08-25 16:42 | Emergency (ER) | payer SELFPAY ==
[2019-08-25 18:31] LABS: Urine Blood NEGATIVE (NEG); Urine Glucose 1+ (NEG)
[2019-08-25 18:32] LABS: Urine Protein NEGATIVE (NEG)
[2019-08-25] MEDS ORDERED: MORPHINE 4 MG/ML SYR ONE (18:40)
[2019-08-25] MEDS ORDERED: KETOROLAC 30 MG/ML INJ ONE (18:41)
[2019-08-25] MEDS ORDERED: ONDANSETRON 4 MG/2 ML VIAL ONE (18:41)
[2019-08-25 18:57] LABS: Absolute Lymphocytes (CBC) 1.2 K/uL (0.7-4.9); Hematocrit 37.8 % (36.0-45.0); Lymphocytes % 17.2 % (15.3-44.8); MPV 9.8 fL (7.6-11.3); RBC Red Blood Cell Count 4.28 M/uL (3.86-4.86)
--- NOTE | 2019-08-25 19:05 | RAD REPORT ---
EXAM DESCRIPTION: CT - Stone Protocol - 08/25/2019 6:58 pm CLINICAL HISTORY: Flank pain. FLANK PAIN COMPARISON: <Comparisons> TECHNIQUE: Axial images were obtained without oral or IV contrast. Lack of contrast limits solid org an and vascular assessment. The paopo-ik-[id number] spans the entirety of the system partially obscuring uppermost abdomen and lung bases. Coronal reformatted images were obtained and reviewed. All CT scans are performed using dose optimization technique as appropriate and may include automated exposure control or mA/KV adjustment according to patient size. FINDINGS: The lower lung briceno are clear. Imaged portions of the liver and spleen show no suspicious findings on non-contrast imaging. The panc reas and adrenal glands are normal. No pathologic lymphadenopathy in the abdomen or pelvis. No urinary tract stones or obstructive uropathy. No bowel obstruction, free air, free fluid or abscess. Normal appendix noted. Moderate L5-S1 spondylosis. IMPRESSION: No urinary tract stones or obstructive uropathy.
--- NOTE | 2019-08-25 19:30 | EDPHYS ---
Physician Documentation [facility] Name: Chasidy Mckenzie Age: 59 yrs Sex: Female : 1960 Arrival Date: 08/25/2019 Time: 16:44 Bed 28 Private MD: ED Physician Devante Gilliam HPI: 08/25 18:20 This 59 yrs old Female presents to ER via Ambulatory with complaints of Low douglas Back Pain. 18:20 The patient presents with pain that is acute, with no known mechanism of injury. The douglas symptoms are located in the low back, lumbar area, right mid back and right low back. The pain radiates to the lumbar area and right low back. Historical: - Allergies: 16:47 No Known Allergies; sv - PMHx: 16:47 Diabetes - NIDDM; Hypertension; sv - PSHx: 16:47 ; Hernia repair; abscesses (always admitted and sx is performed); sv - Immunization history:: Flu vaccine is not up to date. - Social history:: Smoking status: Patient/guardian denies using tobacco. - Ebola Screening: : No symptoms or risks identified at this time. - Family history:: not pertinent. ROS: 18:20 Constitutional: Negative for fever, chills, and weight loss, Eyes: Negative for injury, douglas pain, redness, and discharge, ENT: Negative for injury, pain, and discharge, Neck: Negative for injury, pain, and swelling, Cardiovascular: Negative for chest pain, palpitations, and edema, Respiratory: Negative for shortness of breath, cough, wheezing, and pleuritic chest pain, Abdomen/GI: Negative for abdominal pain, nausea, vomiting, diarrhea, and constipation, : Negative for injury, bleeding, discharge, and swelling, MS/Extremity: Negative for injury and deformity, Skin: Negative for injury, rash, and discoloration, Neuro: Negative for headache, weakness, numbness, tingling, and seizure, Psych: Negative for depression, anxiety, suicide ideation, homicidal ideation, and hallucinations, Allergy/Immunology: Negative for hives, rash, and allergies, Endocrine: Negative for neck swelling, polydipsia, polyuria, polyphagia, and marked weight changes, Hematologic/Lymphatic: Negative for swollen nodes, abnormal bleeding, and unusual bruising. 18:20 Back: Positive for pain at rest, flank pain, on the left. Exam: 18:20 Constitutional: This is a well developed, well nourished patient who is awake, alert, douglas and in no acute distress. Head/Face: Normocephalic, atraumatic. Eyes: Pupils equal round and reactive to light, extra-ocular motions intact. Lids and lashes normal. Conjunctiva and sclera are non-icteric and not injected. Cornea within normal limits. Periorbital areas with no swelling, redness, or edema. ENT: Nares patent. No nasal discharge, no septal abnormalities noted. Tympanic membranes are normal and external auditory canals are clear. Oropharynx with no redness, swelling, or masses, exudates, or evidence of obstruction, uvula midline. Mucous membranes moist. Neck: Trachea midline, no thyromegaly or masses palpated, and no cervical lymphadenopathy. Supple, full range of motion without nuchal rigidity, or vertebral point tenderness. No Meningismus. Chest/axilla: Normal chest wall appearance and motion. Nontender with no deformity. No lesions are appreciated. Cardiovascular: Regular rate and rhythm with a normal S1 and S2. No gallops, murmurs, or rubs. Normal PMI, no JVD. No pulse deficits. Respiratory: Lungs have equal breath sounds bilaterally, clear to auscultation and percussion. No rales, rhonchi or wheezes noted. No increased work of breathing, no retractions or nasal flaring. Abdomen/GI: Soft, non-tender, with normal bowel sounds. No distension or tympany. No guarding or rebound. No evidence of tenderness throughout. Female : Normal external genitalia. Skin: Warm, dry with normal turgor. Normal color with no rashes, no lesions, and no evidence of cellulitis. MS/ Extremity: Pulses equal, no cyanosis. Neurovascular intact. Full, normal range of motion. Neuro: Awake and alert, GCS 15, oriented to person, place, time, and situation. Cranial nerves II-XII grossly intact. Motor strength 5/5 in all extremities. Sensory grossly intact. Cerebellar exam normal. Normal gait. Psych: Awake, alert, with orientation to person, place and time. Behavior, mood, and affect are within normal limits. 18:20 Back: pain, that is mild, that is moderate, of the right low back, ROM is normal, normal spinal alignment noted, CVA tenderness, that is moderate, is noted on the right, muscle spasm, is appreciated in the right mid back and right low back. Vital Signs: 16:47 BP 108 / 86; Pulse 90; Resp 16; Temp 98.5; Pulse Ox 99% ; Weight 58.97 kg; Height 5 ft. sv 0 in. (152.40 cm); 20:03 BP 110 / 81; Pulse 86; Resp 16; Pulse Ox 100% ; rv 16:47 Body Mass Index 25.39 (58.97 kg, 152.40 cm) sv MDM: 17:50 Patient medically screened. [facility] 18:24 Data reviewed: vital signs, nurses notes, lab test result(s), EKG, radiologic studies, [facility] CT scan. 08/25 18:09 Order name: Urine Dipstick--Ancillary (enter results); Complete Time: 19:27 ms 08/25 18:20 Order name: CBC with Diff [facility] 08/25 18:20 Order name: Comprehensive Metabolic Panel; Complete Time: 19:40 [facility] 08/25 18:20 Order name: Urine Culture [facility] 08/25 20:00 Order name: Manual Differential EDMS 08/25 18:20 Order name: CT Stone Protocol; Complete Time: 19:27 [facility] Administered Medications: 18:57 Drug: TORadol 30 mg Route: IVP; Site: left antecubital; rv 20:00 Follow up: Response: No adverse reaction rv 18:57 Drug: morphine 2 mg {Note: rass 0.} Route: IVP; Site: left antecubital; rv 18:57 Drug: Zofran 4 mg Route: IVP; Site: left antecubital; rv 20:02 Follow up: Response: No adverse reaction rv 19:30 Drug: morphine 2 mg {Note: rass 0.} Route: IVP; Site: left antecubital; rv 19:30 Follow up: Response: RASS: Alert and Calm (0) rv 20:01 Follow up: Response: Marked relief of symptoms; Pain is decreased; RASS: Alert and Calm rv (0) 20:01 Drug: Valium 5 mg Route: PO; rv 20:02 Follow up: Response: Medication administered at discharge. rv Disposition: 08/25/19 19:29 Discharged to Home. Impression: Low back pain, Urinary tract infection, site not specified, Spondylolysis, lumbar region - moderate, Type 2 diabetes mellitus. - Condition is Stable. - Discharge Instructions: Back Pain, Adult, Musculoskeletal Pain, Urinary Tract Infection, Adult, Urinary Tract Infection, Adult, [id number], Back Pain, Adult, [id number]. - Prescriptions for Tylenol- Codeine #3 300-30 mg Oral Tablet - take 2 tablet by ORAL route every 6 hours As needed; 30 tablet. Motrin IB 200 mg Oral Tablet - take 1 tablet by ORAL route every 8 hours As needed as needed with food; 30 tablet. Cipro 250 mg Oral Tablet - take 1 tablet by ORAL route every 12 hours; 14 tablet. - Medication Reconciliation Form, Thank You Letter, Antibiotic Education, Prescription Opioid Use form. - Follow up: Private Physician; When: 2 - 3 days; Reason: Recheck today's complaints, Continuance of care, Re-evaluation by your physician. - Problem is new. - Symptoms have improved. Signatures: Dispatcher [employer] [facility] Marisela Reynolds RN RN Devante Olmedo MD MD cha Vicente, Ronaldo, RN RN rv Corrections: (The following items were deleted from the chart) 20:00 19:30 CBC Smear Scan ordered. [facility] 20:03 19:29 08/25/2019 19:29 Discharged to Home. Impression: Low back pain; Urinary tract rv infection, site not specified; Spondylolysis, lumbar region - moderate; Type 2 diabetes mellitus. Condition is Stable. Discharge Instructions: Back Pain, Adult, Musculoskeletal Pain, Back Pain, Adult, [id number]. Prescriptions for Tylenol-Codeine #3 300-30 mg Oral Tablet - take 2 tablet by ORAL route every 6 hours As needed; 30 tablet, Motrin IB 200 mg Oral Tablet - take 1 tablet by ORAL route every 8 hours As needed as needed with food; 30 tablet. and Forms are Medication Reconciliation Form, Thank You Letter, Antibiotic Education, Prescription Opioid Use. Follow up: Private Physician; When: 2 - 3 days; Reason: Recheck today's complaints, Continuance of care, Re-evaluation by your physician. Problem is new. Symptoms have improved. douglas
--- NOTE | 2019-08-25 19:30 | ER ---
Nurse's Notes [facility] Name: Chasidy Mckenzie Age: 59 yrs Sex: Female : 1960 Arrival Date: 08/25/2019 Time: 16:44 Bed 28 Private MD: Diagnosis: Low back pain;Urinary tract infection, site not specified;Spondylolysis, lumbar region-moderate;Type 2 diabetes mellitus Presentation: 08/25 16:44 Presenting complaint: Patient states: low back pain that radiates to the right side sv started today. Denies urinary problems. Transition of care: patient was not received from another setting of care. Onset of symptoms was August 25, 2019. Risk Assessment: Do you want to hurt yourself or someone else? Patient reports no desire to harm self or others. Care prior to arrival: None. 16:44 Method Of Arrival: Ambulatory sv 16:44 Acuity: RYAN 4 sv 18:58 Initial Sepsis Screen: Does the patient meet any 2 criteria? No. Patient's initial rv sepsis screen is negative. Does the patient have a suspected source of infection? No. Patient's initial sepsis screen is negative. Historical: - Allergies: 16:47 No Known Allergies; sv - PMHx: 16:47 Diabetes - NIDDM; Hypertension; sv - PSHx: 16:47 ; Hernia repair; abscesses (always admitted and sx is performed); sv - Immunization history:: Flu vaccine is not up to date. - Social history:: Smoking status: Patient/guardian denies using tobacco. - Ebola Screening: : No symptoms or risks identified at this time. - Family history:: not pertinent. Screenin:58 Abuse screen: Denies threats or abuse. Denies injuries from another. Nutritional rv screening: No deficits noted. Tuberculosis screening: No symptoms or risk factors identified. Fall Risk None identified. Assessment: 18:57 General: Appears uncomfortable, Behavior is calm. Pain: Complains of pain in low back. rv Neuro: Level of Consciousness is awake, alert, obeys commands, Oriented to person, place, time, situation. Cardiovascular: Patient's skin is warm and dry. Respiratory: Airway is patent. GI: No signs and/or symptoms were reported involving the gastrointestinal system. : No signs and/or symptoms were reported regarding the genitourinary system. EENT: No signs and/or symptoms were reported regarding the EENT system. Derm: Skin is intact. Vital Signs: 16:47 BP 108 / 86; Pulse 90; Resp 16; Temp 98.5; Pulse Ox 99% ; Weight 58.97 kg; Height 5 ft. sv 0 in. (152.40 cm); 20:03 BP 110 / 81; Pulse 86; Resp 16; Pulse Ox 100% ; rv 16:47 Body Mass Index 25.39 (58.97 kg, 152.40 cm) sv ED Course: 16:44 Patient arrived in ED. as 16:44 Arm band placed on. sv 16:47 Triage completed. sv 17:50 Devante Gilliam MD is Attending Physician. douglas 17:55 Rico Casas RN is Primary Nurse. rv 18:37 Radiology exam delayed due to Hipolito to call when pt is ready. mw3 18:55 CT completed. Patient tolerated procedure well. Patient moved back from CT. bq 18:58 Patient has correct armband on for positive identification. Bed in low position. Call rv light in reach. Side rails up X 1. Pulse ox on. NIBP on. 18:59 Inserted saline lock: 20 gauge in left antecubital area, using aseptic technique. Blood rv collected. 19:02 CT Stone Protocol In Process Unspecified. EDMS 20:02 No provider procedures requiring assistance completed. IV discontinued, intact, rv bleeding controlled, No redness/swelling at site. Pressure dressing applied. Administered Medications: 18:57 Drug: TORadol 30 mg Route: IVP; Site: left antecubital; rv 20:00 Follow up: Response: No adverse reaction rv 18:57 Drug: morphine 2 mg {Note: rass 0.} Route: IVP; Site: left antecubital; rv 18:57 Drug: Zofran 4 mg Route: IVP; Site: left antecubital; rv 20:02 Follow up: Response: No adverse reaction rv 19:30 Drug: morphine 2 mg {Note: rass 0.} Route: IVP; Site: left antecubital; rv 19:30 Follow up: Response: RASS: Alert and Calm (0) rv 20:01 Follow up: Response: Marked relief of symptoms; Pain is decreased; RASS: Alert and Calm rv (0) 20:01 Drug: Valium 5 mg Route: PO; rv 20:02 Follow up: Response: Medication administered at discharge. rv Outcome: 19:29 Discharge ordered by . douglas 20:02 Discharged to home ambulatory. rv 20:02 Condition: good 20:02 Discharge instructions given to patient, family, Instructed on discharge instructions, follow up and referral plans. medication usage, Demonstrated understanding of instructions, follow-up care, medications, Prescriptions given X 3. 20:03 Patient left the ED. rv Signatures: Dispatcher [employer] Marisela Hunter, RN RN Devante Olmedo MD MD cha Quilty, Betty bq Martinez, Amelia as Willis, Michelle mw3 Rico Casas RN RN rv
[2019-08-25 19:32] LABS: Albumin 3.8 g/dL (3.4-5.0); Bilirubin Total 0.4 mg/dL (0.2-1.0); Potassium 3.8 mmol/L (3.5-5.1); Protein, Total 6.9 g/dL (6.4-8.2)
[2019-08-25] MEDS ORDERED: DIAZEPAM 5 MG TABLET ONE (19:44)
[2019-08-25 20:00] LABS: Blood Morphology Comment NOT SEEN (NOT SEEN); Platelet Estimate ADEQ
[2019-08-25 21:42] VITALS: TEMP 98.5
[2019-08-25 21:44] VITALS: BP 110/81; O2SAT 100
== END 2019-08-25 20:03 | disposition home or self-care (01) ==
LOC: ER 16:42
DX: N39.0 Urinary tract infection, site not specified (principal); M47.896 Other spondylosis, lumbar region; E11.9 Type 2 diabetes mellitus without complications; I10 Essential (primary) hypertension
CPT/HCPCS: 36415; 74176; 76377; 80053; 81003; 85025; 87077; 87086; 87088; 87186; 96374; 96375; 99284; J2405

== ENCOUNTER 2020-01-29 11:48 | Emergency (ER) | payer SELFPAY ==
[2020-01-29 13:07] LABS: Absolute Lymphocytes (CBC) 2.9 K/uL (0.7-4.9); Basophils % 0.6 % (0-1.3); Hematocrit 43.4 % (36.0-45.0); Lymphocytes % 28.3 % (15.3-44.8); MPV 9.5 fL (7.6-11.3); RBC Red Blood Cell Count 4.93 M/uL (3.86-4.86)
[2020-01-29 13:22] LABS: Albumin 4.2 g/dL (3.4-5.0); Bilirubin Direct 0.1 mg/dL (0-0.2); Bilirubin Total 0.5 mg/dL (0.2-1.0); Potassium 4.1 mmol/L (3.5-5.1); Protein, Total 8.1 g/dL (6.4-8.2)
--- NOTE | 2020-01-29 14:46 | EDPHYS ---
Physician Documentation [facility] Name: Chasidy Smith Age: 59 yrs Sex: Female : 1960 Arrival Date: 01/29/2020 Time: 11:52 Bed 16 Private MD: ED Physician Bertrand Gongora HPI: 01/28 16:03 This 59 yrs old Female presents to ER via Ambulatory with complaints of kdr Abdominal Pain. 16:03 The patient presents with abdominal pain in the epigastric area, in the upper abdomen. kdr Onset: The symptoms/episode began/occurred gradually, 2 day(s) ago. The symptoms do not radiate. Associated signs and symptoms: none. The symptoms are described as burning. Modifying factors: The symptoms are alleviated by nothing, the symptoms are aggravated by nothing. Severity of pain: At its worst the pain was mild just prior to arrival, in the emergency department the pain is unchanged. The patient has not experienced similar symptoms in the past. The patient has not recently seen a physician. Historical: - Allergies: 11:59 No Known Drug Allergies; ph - PMHx: 11:59 Diabetes - NIDDM; Hypertension; ph - PSHx: :59 ; Hernia repair; abscesses (always admitted and sx is performed); ph - Immunization history:: Adult Immunizations unknown. ROS: 16:03 Constitutional: Negative for fever, chills, and weight loss, Eyes: Negative for injury, kdr pain, redness, and discharge, ENT: Negative for injury, pain, and discharge, Neck: Negative for injury, pain, and swelling, Cardiovascular: Negative for chest pain, palpitations, and edema, Respiratory: Negative for shortness of breath, cough, wheezing, and pleuritic chest pain, Back: Negative for injury and pain, : Negative for injury, bleeding, discharge, and swelling, MS/Extremity: Negative for injury and deformity, Skin: Negative for injury, rash, and discoloration, Neuro: Negative for headache, weakness, numbness, tingling, and seizure activity. Psych: Negative for depression, anxiety, suicide ideation, homicidal ideation, and hallucinations, Allergy/Immunology: Negative for hives, rash, and allergies, Endocrine: Negative for neck swelling, polydipsia, polyuria, polyphagia, and marked weight changes, Hematologic/Lymphatic: Negative for swollen nodes, abnormal bleeding, and unusual bruising. 16:03 Abdomen/GI: Positive for abdominal pain, Negative for nausea, vomiting, and diarrhea, abdominal cramps, abdominal distension, black/tarry stool, rectal pain, rectal bleeding, bowel incontinence. Exam: 14:44 ECG was reviewed by the Attending Physician. kdr 16:03 Constitutional: This is a well developed, well nourished patient who is awake, alert, kdr and in no acute distress. Head/Face: Normocephalic, atraumatic. Eyes: Pupils equal round and reactive to light, extra-ocular motions intact. Lids and lashes normal. Conjunctiva and sclera are non-icteric and not injected. Cornea within normal limits. Periorbital areas with no swelling, redness, or edema. Neck: Trachea midline, no thyromegaly or masses palpated, and no cervical lymphadenopathy. Supple, full range of motion without nuchal rigidity, or vertebral point tenderness. No Meningismus. Chest/axilla: Normal chest wall appearance and motion. Nontender with no deformity. No lesions are appreciated. Cardiovascular: Regular rate and rhythm with a normal S1 and S2. No gallops, murmurs, or rubs. Normal PMI, no JVD. No pulse deficits. Respiratory: Lungs have equal breath sounds bilaterally, clear to auscultation and percussion. No rales, rhonchi or wheezes noted. No increased work of breathing, no retractions or nasal flaring. Abdomen/GI: Soft, non-tender, with normal bowel sounds. No distension or tympany. No guarding or rebound. No evidence of tenderness throughout. Back: No spinal tenderness. No costovertebral tenderness. Full range of motion. Skin: Warm, dry with normal turgor. Normal color with no rashes, no lesions, and no evidence of cellulitis. MS/ Extremity: Pulses equal, no cyanosis. Neurovascular intact. Full, normal range of motion. Neuro: Awake and alert, GCS 15, oriented to person, place, time, and situation. Cranial nerves II-XII grossly intact. Motor strength 5/5 in all extremities. Sensory grossly intact. Cerebellar exam normal. Normal gait. Psych: Awake, alert, with orientation to person, place and time. Behavior, mood, and affect are within normal limits. Vital Signs: 11:58 BP 152 / 76; Pulse 101; Resp 18; Temp 98.3; Pulse Ox 96% on R/A; ph 13:20 BP 161 / 82; Pulse 83; Resp 18; Pulse Ox 98% ; ah 14:36 BP 153 / 72; Pulse 83; Resp 18; Pulse Ox 98% ; ah MDM: 14:45 Patient medically screened. kdr 16:03 Data reviewed: vital signs, nurses notes, lab test result(s), radiologic studies. kdr Counseling: I had a detailed discussion with the patient and/or guardian regarding: the historical points, exam findings, and any diagnostic results supporting the discharge/admit diagnosis, lab results, radiology results, the need for outpatient follow up. 01/28 12:40 Order name: Basic Metabolic Panel; Complete Time: 14:05 [facility] 01/28 12:40 Order name: CBC with Diff; Complete Time: 14:05 [facility] 01/28 12:40 Order name: Hepatic Function; Complete Time: 14:05 [facility] 01/28 12:40 Order name: Lipase; Complete Time: 14:05 [facility] 01/28 12:40 Order name: IV Saline Lock; Complete Time: 13:59 [facility] 01/28 14:05 Order name: Troponin (emerg Dept Use Only); Complete Time: 14:43 [facility] 01/28 12:40 Order name: Labs collected and sent; Complete Time: 14:00 [facility] 01/28 14:05 Order name: EKG - Nurse/Tech; Complete Time: 22:33 kdr EC:44 Rate is 84 beats/min. Rhythm is regular, Normal Sinus Rhythm with No ectopy. QRS [place] kdr is Normal. MI interval is normal. QRS interval is normal. QT interval is normal. No Q waves. T waves are Normal. No ST changes noted. Clinical impression: Normal ECG. Administered Medications: No medications were administered Disposition: 01/29/20 14:45 Discharged to Home. Impression: Abdominal and pelvic pain - Superficial. - Condition is Stable. - Discharge Instructions: Abdominal Pain, Adult, [id number]. - Medication Reconciliation Form, Thank You Letter form. - Follow up: Private Physician; When: 2 - 3 days; Reason: If symptoms return, Further diagnostic work-up, Recheck today's complaints, Continuance of care, Re-evaluation by your physician. - Problem is new. - Symptoms have improved. Signatures: Dispatcher [employer] EDBertrand Pritchett MD MD kdr Ivonne York, RN RN Christine Ashraf, RN RN Corrections: (The following items were deleted from the chart) 15:15 14:45 01/29/2020 14:45 Discharged to Home. Impression: Abdominal and pelvic pain - ah Superficial. Condition is Stable. Forms are Medication Reconciliation Form, Thank You Letter, Antibiotic Education, Prescription Opioid Use. Follow up: Private Physician; When: 2 - 3 days; Reason: If symptoms return, Further diagnostic work-up, Recheck today's complaints, Continuance of care, Re-evaluation by your physician. Problem is new. Symptoms have improved. kdr
--- NOTE | 2020-01-29 14:46 | ER ---
Nurse's Notes [facility] Name: Chasidy Smith Age: 59 yrs Sex: Female : 1960 Arrival Date: 01/29/2020 Time: 11:52 Bed 16 Private MD: Diagnosis: Abdominal and pelvic pain-Superficial Presentation: 01/28 11:58 Ebola Screen: No symptoms or risks identified at this time. Initial Sepsis Screen: Does ph the patient meet any 2 criteria? No. Patient's initial sepsis screen is negative. Does the patient have a suspected source of infection? No. Patient's initial sepsis screen is negative. Risk Assessment: Do you want to hurt yourself or someone else? Patient reports no desire to harm self or others. Onset of symptoms was January 29, 2020. 11:58 Method Of Arrival: Ambulatory ph 12:02 Chief complaint: Patient states: Pain across upper abdomen, reports burning sensation, ph worse when she touches her skin, denies N/V/D or fever. Coronavirus screen: Patient denies a cough. Patient denies shortness of breath or difficulty breathing. Patient denies measured and/or subjective temperature greater than 100.4F prior to today's visit. Patient denies travel on a cruise ship or to a country the [facility] currently lists as an affected area. Patient denies contact with known and/or suspected case of COVID-19. 12:02 Acuity: RYAN 3 ph Historical: - Allergies: 11:59 No Known Drug Allergies; ph - PMHx: 11:59 Diabetes - NIDDM; Hypertension; ph - PSHx: 11:59 ; Hernia repair; abscesses (always admitted and sx is performed); ph - Immunization history:: Adult Immunizations unknown. Screenin:56 Abuse screen: Denies threats or abuse. Nutritional screening: No deficits noted. Tuberculosis screening: No symptoms or risk factors identified. Fall Risk None identified. Assessment: 13:00 General: Appears in no apparent distress. Behavior is calm, cooperative. Pain: Complains of pain in diaphragm and xyphoid area Pain does not radiate. Neuro: Level of Consciousness is awake, alert, Oriented to person, place, time, situation. Cardiovascular: Denies chest pain, Heart tones S1 S2 present Capillary refill < 3 seconds Patient's skin is warm and dry. Respiratory: Airway is patent Respiratory effort is even, unlabored, Respiratory pattern is regular, symmetrical, Breath sounds are clear bilaterally. GI: Bowel sounds present X 4 quads. Abdomen is tender to palpation in epigastric area Patient currently denies diarrhea, nausea, vomiting. : No signs and/or symptoms were reported regarding the genitourinary system. Denies burning with urination. EENT: No signs and/or symptoms were reported regarding the EENT system. Derm: No signs and/or symptoms reported regarding the dermatologic system. Musculoskeletal: No signs and/or symptoms reported regarding the musculoskeletal system. 14:00 Reassessment: Patient and/or family updated on plan of care and expected duration. Pain ah level reassessed. Awaiting on results at this time. No needs voiced at this time. Vital Signs: 11:58 BP 152 / 76; Pulse 101; Resp 18; Temp 98.3; Pulse Ox 96% on R/A; ph 13:20 BP 161 / 82; Pulse 83; Resp 18; Pulse Ox 98% ; ah 14:36 BP 153 / 72; Pulse 83; Resp 18; Pulse Ox 98% ; ah ED Course: 11:52 Patient arrived in ED. mr 12:06 Triage completed. ph 12:06 Arm band placed on Patient placed in waiting room. ph 12:25 Bertrand Gongora MD is Attending Physician. kdr 12:35 Placed in gown. Bed in low position. Warm blanket given. Verbal reassurance given. jp3 Pulse ox on. NIBP on. 12:43 Christine Ashraf, RN is Primary Nurse. ah 12:45 Inserted saline lock: 20 gauge in left antecubital area, using aseptic technique. Blood jp3 collected. 12:45 Initial lab(s) drawn, by mn, sent to lab. jp3 14:57 No provider procedures requiring assistance completed. IV discontinued, intact, bleeding controlled, No redness/swelling at site. Pressure dressing applied. Administered Medications: No medications were administered Outcome: 14:45 Discharge ordered by . kdr 15:14 Discharged to home ambulatory. 15:14 Condition: good 15:14 Discharge instructions given to patient, Instructed on discharge instructions, follow up and referral plans. Demonstrated understanding of instructions, follow-up care. 15:15 Patient left the ED. Signatures: Bertrand Gongora MD MD kdr Rivera Josie mr Ivonne York RN RN ph Senthil Almanzar 3 Christine Ashraf RN RN Corrections: (The following items were deleted from the chart) 12:07 12:02 Acuity: RYAN 4 ph ph
--- NOTE | 2020-01-31 06:32 | EKG ---
Test Date: 2020-01-29 Test Time: 14:39:21 Advertising Writer: RENEE MEASUREMENT RESULTS: Intervals: Rate: 84 CA: 152 QRSD: 78 QT: 382 QTc: 451 [place]: P: 60 CA: 152 QRS: 83 T: 51 INTERPRETIVE STATEMENTS: Normal sinus rhythm Normal ECG No previous ECG available for comparison Electronically Signed On 01-31-20 06:30:27 CDT by Raul Napoles
== END 2020-01-29 15:15 | disposition home or self-care (01) ==
LOC: ER 11:48
DX: R10.2 Pelvic and perineal pain (principal); I10 Essential (primary) hypertension
CPT/HCPCS: 36415; 80048; 80076; 83690; 84484; 85025; 93005; 99283

== ENCOUNTER 2020-09-04 12:41 | Emergency (ER) | payer SELFPAY ==
--- OUTSIDE RECORDS SUMMARY | 2020-09-04 12:43 | XMS REPORT | Continuity of Care Document ---
:1960 Author Organization [facility] t Address [address] [place] [address] Care Team Providers Name Role Phone Yandel GALLAGHER, Ty Gaston Attending Clinician Jarad GALLAGHER Attending Clinician Problems This patient has no known problems. Allergies, Adverse Reactions, Alerts This patient has no known allergies or adverse reactions. Medications This patient has no known medications. Procedures This patient has no known procedures. Encounters Start End Encounter Admission Attending Care Care Encounter Source Date/Time Date/Time Type Type Clinicians Facility Department ID 2020-03-25 2020-03-26 Emergency Yandel [facility] [id number] 21:50:30 03:12:00 Ty Briseno [id number] [place] [id number] [place] [id number] 2020-03-21 2020-03-21 Emergency LUIS DANIEL Abraham [id number] 11:51:42 14:34:00 Ed Briseno [id number] [place] [id number] [place] [id number] Results This patient has no known results.
--- NOTE | 2020-09-04 13:45 | RAD REPORT ---
EXAM DESCRIPTION: RAD - Chest Single View - 09/04/2020 1:40 pm CLINICAL HISTORY: Cough;Abdominal distention Chest pain. COMPARISON: Chest Single View dated 05/03/2018; Chest Single View dated 05/20/2017; Chest Single View d ated 03/06/2017; Chest Single View dated 06/20/2016; Hepatobiliary System W/ Ph dated 03/27/2020 FINDINGS: Portable technique limits examination quality. The lungs are grossly clear. The heart is normal in size. No displaced fractures. IMPRESSION: No acute intrathoracic process suspected.
[2020-09-04 14:32] LABS: Absolute Lymphocytes (CBC) 2.3 K/uL (0.7-4.9); Basophils % 0.7 % (0-1.3); Hematocrit 42.7 % (36.0-45.0); Lymphocytes % 25.9 % (15.3-44.8); MPV 9.9 fL (7.6-11.3); RBC Red Blood Cell Count 4.81 M/uL (3.86-4.86)
[2020-09-04 14:33] LABS: Protime INR 1.01
[2020-09-04 14:48] LABS: ALT/SGPT 14 U/L (12-78); AST/SGOT 9 U/L (15-37); Albumin 3.8 g/dL (3.4-5.0); Alkaline Phosphatase 79 U/L (45-117); BUN Blood Urea Nitrogen 15 mg/dL (7-18); Bicarbonate 24 mmol/L (21-32); Bilirubin Direct 0.2 mg/dL (0-0.2); Bilirubin Total 0.8 mg/dL (0.2-1.0); Glucose Level 229 mg/dL (74-106); Lipase 429 U/L (73-393); Magnesium 1.9 mg/dL (1.8-2.4); NT PRO-BNP 23 pg/mL (<125); Protein, Total 7.7 g/dL (6.4-8.2); Sodium Level 138 mmol/L (136-145); Troponin (Emerg Dept Use Only) < 0.02 ng/mL (0.0-0.045)
[2020-09-04] MEDS ORDERED: NA CHLORIDE 0.9% 1,000 ML ONE (14:57)
--- NOTE | 2020-09-04 16:37 | RAD REPORT ---
EXAM DESCRIPTION: CTAbdomen Pelvis W Contrast - 09/04/2020 4:26 pm CLINICAL HISTORY: Abdominal pain. ABD PAIN COMPARISON: Abdomen Pelvis W Contrast dated 05/11/2019; Abdomen Pelvis W Contrast dated 02/20/2018 ; Abdomen Pelvis W Contrast dated 03/14/2016; CT ABD PELVIS W CONTRAST dated 04/27/2014; Chest Single View dated 09/04/2020; Hepatobiliary System W/ Ph dated 03/27/2020 TECHNIQUE: Biphasic CT imaging of the abdomen and pelvis was performed with 100 ml non-ionic IV cont rast. All CT scans are performed using dose optimization technique as appropriate and may include automated exposure control or mA/KV adjustment according to patient size. FINDINGS: The lung bases are clear. The liver, spleen, pancreas, adrenal glands and kidneys are within normal limits. No bowel obstruction, free air, free fluid or abscess. The appendix is normal. No evidence of signi ficant lymphadenopathy. Moderate lumbosacral degenerative changes. IMPRESSION: No acute intra-abdominal or pelvic finding.
[2020-09-04] MEDS ORDERED: FAMOTIDINE 20 MG/2 ML VIAL IV ONE (16:43)
[2020-09-04] MEDS ORDERED: NA CHLORIDE 0.9% 500 ML ONE (16:43)
--- NOTE | 2020-09-04 16:48 | ER ---
Nurse's Notes [facility] Name: Chasidy Smith Age: 60 yrs Sex: Female : 1960 Arrival Date: 09/04/2020 Time: 12:42 Bed 8 Private MD: Diagnosis: Vomiting;Diarrhea, unspecified;Type 2 diabetes mellitus;Urinary tract infection, site not specified Presentation: 09/04 12:54 Chief complaint: Patient states: N/V/D for 1 week. No fever. Abdominal pain off/on, ll1 none now. Coronavirus screen: Client denies travel out of the [place] in the last 14 days. diarrhea, nausea, vomiting. Client presents with at least one sign or symptom that may indicate coronavirus-19. Standard/surgical mask placed on the client. Had covid end of March. Ebola Screen: Patient denies travel to an Ebola-affected area in the 21 days before illness onset. Initial Sepsis Screen: Does the patient meet any 2 criteria? HR > 90 bpm. No. Patient's initial sepsis screen is negative. Does the patient have a suspected source of infection? Yes: Acute abdominal pain. Risk Assessment: Do you want to hurt yourself or someone else? Patient reports no desire to harm self or others. Onset of symptoms was August 29, 2020. 12:54 Method Of Arrival: Ambulatory ll1 12:54 Acuity: RYAN 3 ll1 Historical: - Allergies: 12:54 No Known Drug Allergies; ll1 - PMHx: 12:54 Diabetes - NIDDM; Hypertension; ll1 - PSHx: 12:54 ; Hernia repair; abscesses (always admitted and sx is performed); ll1 - Immunization history:: Flu vaccine is not up to date. - Social history:: Smoking status: Patient denies any tobacco usage or history of. Screenin:20 Abuse screen: Denies threats or abuse. Nutritional screening: No deficits noted. aa5 Tuberculosis screening: No symptoms or risk factors identified. Fall Risk None identified. Assessment: 13:20 General: Appears comfortable, Behavior is calm, cooperative. Pain: Denies pain. Neuro: aa5 Level of Consciousness is awake, alert, obeys commands, Oriented to person, place, time, situation. Cardiovascular: Heart tones S1 S2 present Rhythm is regular. Respiratory: Airway is patent Respiratory effort is even, unlabored, Respiratory pattern is regular, symmetrical. GI: Abdomen is round non-distended, Bowel sounds present X 4 quads. Abd is soft and non tender X 4 quads. Reports diarrhea, nausea, vomiting. : No signs and/or symptoms were reported regarding the genitourinary system. EENT: No signs and/or symptoms were reported regarding the EENT system. Derm: Skin is pink, warm \T\ dry. Musculoskeletal: Range of motion: intact in all extremities. 15:00 Reassessment: Patient is alert, oriented x 3, equal unlabored respirations, skin aa5 warm/dry/pink. Patient denies pain at this time. Denies any vomiting or diarrhea episodes in the ER. . 15:55 Reassessment: Pt assisted with bedside commode, pt states she is unable to have bowel aa5 movement at this time (for stool specimen collection). Pt voided once. Pt placed back in bed. Awaiting disposition. . 16:15 Reassessment: Pending add-on pending orders. Pt now to CT via wheelchair. . aa5 16:35 Reassessment: Patient is alert, oriented x 3, equal unlabored respirations, skin aa5 warm/dry/pink. Pt back from CT scan, pt drank cup of water and tolerated well. . 17:30 Reassessment: Patient is alert, oriented x 3, equal unlabored respirations, skin aa5 warm/dry/pink. Patient denies pain at this time. Pt tolerated cup of water, reported no vomiting after. . 19:13 Reassessment: Patient is alert, oriented x 3, equal unlabored respirations, skin aa5 warm/dry/pink. Vital Signs: 12:54 BP 119 / 76; Pulse 94; Resp 18; Temp 98.1; Pulse Ox 97% on R/A; Weight 57.61 kg; Height ll1 5 ft. (152.40 cm); Pain 0/10; 14:00 BP 146 / 77; Pulse 87; Resp 16 S; Pulse Ox 97% on R/A; aa5 15:00 BP 144 / 87; Pulse 88; Resp 18 S; Pulse Ox 97% on R/A; aa5 16:00 BP 132 / 72; Pulse 92; Resp 16 S; Temp 97.8(TE); Pulse Ox 100% on R/A; aa5 12:54 Body Mass Index 24.80 (57.61 kg, 152.40 cm) ll1 ED Course: 12:42 Patient arrived in ED. as 12:49 Devante Gilliam MD is Attending Physician. douglas 12:51 Livier Helton, RADHA is Primary Nurse. aa5 12:53 Arm band placed on Patient placed in an exam room, on a stretcher. ll1 12:55 Triage completed. ll1 13:20 Patient has correct armband on for positive identification. Bed in low position. Call aa5 light in reach. Side rails up X2. Adult w/ patient. 13:38 XRAY Chest (1 view) In Process Unspecified. EDMS 14:21 Inserted saline lock: 20 gauge in right antecubital area, using aseptic technique. dh4 Blood collected. 15:17 COVID-19 Sent. dh4 16:26 CT Abd/Pelvis - IV Contrast Only In Process Unspecified. EDMS 19:13 No provider procedures requiring assistance completed. aa5 19:15 IV discontinued, intact, bleeding controlled, No redness/swelling at site. Pressure dh3 dressing applied. 19:15 IV dc'd by blend technician. aa5 Administered Medications: 15:00 Drug: NS 0.9% 1000 ml Route: IV; Rate: 1 bolus; Site: right antecubital; aa5 16:00 Follow up: IV Status: Completed infusion; IV Intake: 1000ml aa5 16:35 Drug: NS 0.9% 500 ml Route: IV; Rate: bolus; Site: right antecubital; aa5 17:00 Follow up: IV Status: Completed infusion; IV Intake: 500ml aa5 16:35 Drug: Pepcid 20 mg Route: IVP; Site: right antecubital; aa5 17:00 Follow up: Response: No adverse reaction aa5 18:10 Drug: Rocephin 1 grams Route: IV; Rate: per protocol; Site: right antecubital; aa5 19:00 Follow up: Response: No adverse reaction aa5 18:10 Drug: Cipro 250 mg Route: PO; aa5 19:00 Follow up: Response: No adverse reaction aa5 Intake: 16:00 IV: 1000ml; Total: 1000ml. aa5 17:00 IV: 500ml; Total: 1500ml. aa5 Outcome: 16:47 Discharge ordered by . douglas 19:13 Discharged to home ambulatory, with family. aa5 19:13 Condition: stable 19:13 Discharge instructions given to patient, Instructed on discharge instructions, follow up and referral plans. medication usage, Demonstrated understanding of instructions, follow-up care, medications, Prescriptions given X 3. 19:16 Patient left the ED. aa5 Addendum: 09/08/2020 20:32 Addendum: COVID-19 Result: Negative result given to RN to notify pt. Contacted by: serena Jarvis. Notified pt of negative COVID 19 swab results. Pt advised that even with a negative test result they should remain in isolation until symptom free for 3 days without medication. Pt also advised to return to the ED for worsening symptoms. 09/09/2020 12:19 Addendum: Culture Results: Positive urine culture. Bacteria is resistant to, has d m5 intermediate sensitivity, or is not tested against prescribed antibiotics. Report given to LILI for further evaluation and then to operations support coordinator for follow up with patient. Prescription called-in to pharmacy of choice. Augmentin 875mg 1 tab PO BID for 7 days called in by nj for ROLAND Cazares to [facility]. Signatures: Dispatcher [employer] EDMS Marti Villafana, RADHA RN dm5 Devante Gilliam MD MD cha Martinez, Amelia as Williams, Irene, Livier Roberson RN, RN RN aa5 Cyndie Francis 3 Tomy Villegas [facility] Nora Serna RN RN ll1
--- NOTE | 2020-09-04 16:48 | EDPHYS ---
Physician Documentation [facility] Name: Chasidy Smith Age: 60 yrs Sex: Female : 1960 Arrival Date: 09/04/2020 Time: 12:42 Bed 8 Private MD: ED Physician Devante Gilliam HPI: 09/04 13:25 This 60 yrs old Female presents to ER via Ambulatory with complaints of douglas Vomiting/Diarrhea. 13:25 The patient presents to the emergency department with nausea, vomiting, diarrhea, that douglas is continuous. Onset: The symptoms/episode began/occurred 5 day(s) ago. Possible causes: unknown. The symptoms are aggravated by food . Associated signs and symptoms: The patient has no apparent associated signs or symptoms. Severity of symptoms: At their worst the symptoms were mild moderate in the emergency department the symptoms are unchanged. The patient has not experienced similar symptoms in the past. Historical: - Allergies: 12:54 No Known Drug Allergies; ll1 - PMHx: 12:54 Diabetes - NIDDM; Hypertension; ll1 - PSHx: 12:54 ; Hernia repair; abscesses (always admitted and sx is performed); ll1 - Immunization history:: Flu vaccine is not up to date. - Social history:: Smoking status: Patient denies any tobacco usage or history of. ROS: 13:26 Constitutional: Negative for fever, chills, and weight loss, Eyes: Negative for injury, douglas pain, redness, and discharge, ENT: Negative for injury, pain, and discharge, Neck: Negative for injury, pain, and swelling, Cardiovascular: Negative for chest pain, palpitations, and edema, Respiratory: Negative for shortness of breath, cough, wheezing, and pleuritic chest pain, Abdomen/GI: Negative for abdominal pain, nausea, vomiting, diarrhea, and constipation, Back: Negative for injury and pain, : Negative for injury, bleeding, discharge, and swelling, MS/Extremity: Negative for injury and deformity, Skin: Negative for injury, rash, and discoloration, Neuro: Negative for headache, weakness, numbness, tingling, and seizure, Psych: Negative for depression, anxiety, suicide ideation, homicidal ideation, and hallucinations, Allergy/Immunology: Negative for hives, rash, and allergies, Endocrine: Negative for neck swelling, polydipsia, polyuria, polyphagia, and marked weight changes, Hematologic/Lymphatic: Negative for swollen nodes, abnormal bleeding, and unusual bruising. Exam: 13:26 Constitutional: This is a well developed, well nourished patient who is awake, alert, douglas and in no acute distress. Head/Face: Normocephalic, atraumatic. Eyes: Pupils equal round and reactive to light, extra-ocular motions intact. Lids and lashes normal. Conjunctiva and sclera are non-icteric and not injected. Cornea within normal limits. Periorbital areas with no swelling, redness, or edema. ENT: Nares patent. No nasal discharge, no septal abnormalities noted. Tympanic membranes are normal and external auditory canals are clear. Oropharynx with no redness, swelling, or masses, exudates, or evidence of obstruction, uvula midline. Mucous membranes moist. Neck: Trachea midline, no thyromegaly or masses palpated, and no cervical lymphadenopathy. Supple, full range of motion without nuchal rigidity, or vertebral point tenderness. No Meningismus. Chest/axilla: Normal chest wall appearance and motion. Nontender with no deformity. No lesions are appreciated. Cardiovascular: Regular rate and rhythm with a normal S1 and S2. No gallops, murmurs, or rubs. Normal PMI, no JVD. No pulse deficits. Respiratory: Lungs have equal breath sounds bilaterally, clear to auscultation and percussion. No rales, rhonchi or wheezes noted. No increased work of breathing, no retractions or nasal flaring. Abdomen/GI: Soft, non-tender, with normal bowel sounds. No distension or tympany. No guarding or rebound. No evidence of tenderness throughout. Back: No spinal tenderness. No costovertebral tenderness. Full range of motion. Female : Normal external genitalia. Skin: Warm, dry with normal turgor. Normal color with no rashes, no lesions, and no evidence of cellulitis. MS/ Extremity: Pulses equal, no cyanosis. Neurovascular intact. Full, normal range of motion. Neuro: Awake and alert, GCS 15, oriented to person, place, time, and situation. Cranial nerves II-XII grossly intact. Motor strength 5/5 in all extremities. Sensory grossly intact. Cerebellar exam normal. Normal gait. Psych: Awake, alert, with orientation to person, place and time. Behavior, mood, and affect are within normal limits. 16:05 Musculoskeletal/extremity: DVT Exam: No signs of deep vein thrombosis. no pain, no douglas swelling, no tenderness, negative Homans' sign noted on exam, no appreciated bluish discoloration, no erythema, no increased warmth. 16:49 ECG was reviewed by the Attending Physician. douglas Vital Signs: 12:54 BP 119 / 76; Pulse 94; Resp 18; Temp 98.1; Pulse Ox 97% on R/A; Weight 57.61 kg; Height ll1 5 ft. (152.40 cm); Pain 0/10; 14:00 BP 146 / 77; Pulse 87; Resp 16 S; Pulse Ox 97% on R/A; aa5 15:00 BP 144 / 87; Pulse 88; Resp 18 S; Pulse Ox 97% on R/A; aa5 16:00 BP 132 / 72; Pulse 92; Resp 16 S; Temp 97.8(TE); Pulse Ox 100% on R/A; aa5 12:54 Body Mass Index 24.80 (57.61 kg, 152.40 cm) ll1 MDM: 12:49 Patient medically screened. douglas 13:27 Differential diagnosis: Nonspecific abd pain. Data reviewed: vital signs, nurses notes, [facility] lab test result(s), EKG, radiologic studies, plain films. Data interpreted: manager monitoring: rate is 94 beats/min, Pulse oximetry: on. Test interpretation: by ED physician or midlevel provider: ECG, plain radiologic studies. Counseling: I had a detailed discussion with the patient and/or guardian regarding: the historical points, exam findings, and any diagnostic results supporting the discharge/admit diagnosis, lab results, radiology results. 09/04 13:25 Order name: Basic Metabolic Panel; Complete Time: 15:56 douglas 09/04 13:25 Order name: CBC with Diff; Complete Time: 15:56 douglas 09/04 13:25 Order name: LFT's; Complete Time: 15:56 douglas 09/04 13:25 Order name: Magnesium; Complete Time: 15:56 douglas 09/04 13:25 Order name: NT PRO-BNP; Complete Time: 15:56 douglas 09/04 13:25 Order name: PT-INR; Complete Time: 15:56 [facility] 09/04 13:25 Order name: Troponin (emerg Dept Use Only); Complete Time: 15:56 [facility] 09/04 13:25 Order name: XRAY Chest (1 view); Complete Time: 15:56 [facility] 09/04 13:25 Order name: Lipase; Complete Time: 15:56 [facility] 09/04 13:25 Order name: COVID-19 [facility] 09/04 15:25 Order name: Urine Dipstick--Ancillary (enter results) em1 09/04 16:47 Order name: Urine Culture [facility] 09/04 13:25 Order name: EKG; Complete Time: 13:26 [facility] 09/04 13:25 Order name: Cardiac monitoring; Complete Time: 16:16 [facility] 09/04 13:25 Order name: EKG - Nurse/Tech; Complete Time: 16:36 [facility] 09/04 13:25 Order name: IV Saline Lock; Complete Time: 14:22 [facility] 09/04 13:25 Order name: Labs collected and sent; Complete Time: 14:22 [facility] 09/04 13:25 Order name: O2 Per Protocol; Complete Time: 14:22 [facility] 09/04 13:25 Order name: O2 Sat Monitoring; Complete Time: 14:21 [facility] 09/04 13:25 Order name: Urine Dipstick-Ancillary (obtain specimen); Complete Time: 15:23 [facility] 09/04 16:00 Order name: CT Abd/Pelvis - IV Contrast Only; Complete Time: 16:43 [facility] 09/04 16:01 Order name: PO challenge; Complete Time: 16:35 [facility] EC:49 Rate is 86 beats/min. Rhythm is regular. QRS [place] is Normal. [place] interval is normal. QRS douglas interval is normal. QT interval is normal. No Q waves. T waves are Normal. No ST changes noted. Clinical impression: Normal ECG and No evidence of ischemia. Interpreted by me. Reviewed by me. Administered Medications: 15:00 Drug: NS 0.9% 1000 ml Route: IV; Rate: 1 bolus; Site: right antecubital; aa5 16:00 Follow up: IV Status: Completed infusion; IV Intake: 1000ml aa5 16:35 Drug: NS 0.9% 500 ml Route: IV; Rate: bolus; Site: right antecubital; aa5 17:00 Follow up: IV Status: Completed infusion; IV Intake: 500ml aa5 16:35 Drug: Pepcid 20 mg Route: IVP; Site: right antecubital; aa5 17:00 Follow up: Response: No adverse reaction aa5 18:10 Drug: Rocephin 1 grams Route: IV; Rate: per protocol; Site: right antecubital; aa5 19:00 Follow up: Response: No adverse reaction aa5 18:10 Drug: Cipro 250 mg Route: PO; aa5 19:00 Follow up: Response: No adverse reaction aa5 Disposition: 09/04/20 16:47 Discharged to Home. Impression: Vomiting, Diarrhea, unspecified, Type 2 diabetes mellitus, Urinary tract infection, site not specified. - Condition is Stable. - Discharge Instructions: Food Choices to Help Relieve Diarrhea, Adult, Type 2 Diabetes Mellitus, Diagnosis, Adult, Diarrhea, Adult, Nausea and Vomiting, Adult, Urinary Tract Infection, Adult, Nausea and Vomiting, Adult, Ilju-in-Eapj, Urinary Tract Infection, Adult, Spah-xb-Vsbe, Diarrhea, Adult, Lfmm-kd-Ypyh, Type 2 Diabetes Mellitus, Diagnosis, Adult, Ahnc-ls-Uldu. - Prescriptions for Pepcid 20 mg Oral Tablet - take 1 tablet by ORAL route every 12 hours for 10 days; 20 tablet. Zofran 4 mg Oral Tablet - take 1 tablet by ORAL route every 12 hours As needed; 20 tablet. Cipro 250 mg Oral Tablet - take 1 tablet by ORAL route every 12 hours; 14 tablet. - Medication Reconciliation Form, Thank You Letter, Antibiotic Education, Prescription Opioid Use form. - Follow up: Private Physician; When: 2 - 3 days; Reason: Recheck today's complaints, Continuance of care, Re-evaluation by your physician. - Problem is new. - Symptoms have improved. Signatures: Dispatcher [employer] EDMS Devante Gilliam MD MD cha Calderon, Audri, RN RN aa5 Nora Serna RN RN ll1 Corrections: (The following items were deleted from the chart) 19:16 16:47 09/04/2020 16:47 Discharged to Home. Impression: Vomiting; Diarrhea, unspecified; aa5 Type 2 diabetes mellitus; Urinary tract infection, site not specified. Condition is Stable. Discharge Instructions: Food Choices to Help Relieve Diarrhea, Adult, Type 2 Diabetes Mellitus, Diagnosis, Adult, Diarrhea, Adult, Nausea and Vomiting, Adult, Nausea and Vomiting, Adult, Aevb-oz-Zzhd, Diarrhea, Adult, Owlv-sp-Aprl, Type 2 Diabetes Mellitus, Diagnosis, Adult, Ldav-pi-Lifm. Prescriptions for Pepcid 20 mg Oral Tablet - take 1 tablet by ORAL route every 12 hours for 10 days; 20 tablet, Zofran 4 mg Oral Tablet - take 1 tablet by ORAL route every 12 hours As needed; 20 tablet. and Forms are Medication Reconciliation Form, Thank You Letter, Antibiotic Education, Prescription Opioid Use. Follow up: Private Physician; When: 2 - 3 days; Reason: Recheck today's complaints, Continuance of care, Re-evaluation by your physician. Problem is new. Symptoms have improved. douglas
[2020-09-04 17:21] LABS: Urine Blood NEGATIVE (NEG); Urine Glucose TRACE (NEG); Urine Protein NEGATIVE (NEG); Urine Specific Gravity 1.015 (1.005-1.030); Urine pH 5.5 (5.0-7.0)
[2020-09-04] MEDS ORDERED: CIPROFLOXACIN HCL 500 MG TAB ONE (18:19)
[2020-09-04] MEDS ORDERED: CEFTRIAXONE/SWI 1gm 1 GM/10 ML SYR ONE (18:19)
[2020-09-04 19:25] VITALS: BP 132/72; TEMP 97.8; O2SAT 100
== END 2020-09-04 19:16 | disposition home or self-care (01) ==
LOC: ER 12:41
DX: N39.0 Urinary tract infection, site not specified (principal); R19.7 Diarrhea, unspecified; Z20.828 Contact with and (suspected) exposure to other viral communicable diseases; E11.9 Type 2 diabetes mellitus without complications; I10 Essential (primary) hypertension
CPT/HCPCS: 36415; 71045; 74177; 80048; 80076; 81003; 83690; 83735; 83880; 84484; 85025; 85610; 87077; 87086; 87088; 87186; 93005; 96361; 96374; 96375; 99284; J0696; J7030; J7040; Q9967; U0002

== ENCOUNTER 2021-01-05 18:56 | Emergency (ER) | payer SELFPAY ==
--- OUTSIDE RECORDS SUMMARY | 2021-01-05 18:59 | XMS REPORT | Continuity of Care Document ---
:1960 Author Organization [facility] t Address [address] [place] [address] [address] [place] [address] Care Team Providers Name Role Phone Yandel [...] Clinicians Facility Department ID 2020-03-25 2020-03-26 [facility] [id number] 21:50:30 03:12:00 Ty Briseno [id number] [place] [id number] [place] [id number] 2020-03-21 2020-03-21 [facility] [id number] 11:51:42 14:34:00 Ed Briseno [id number] [place] [id number] [place] [id number] Results Test Description Test Time Test Comments Results Result [facility] e Comments SCR MAMM 2020-09-02 BILATERAL GUERLINE 11:18:52 CAD DIGITAL Name: Chasidy : 1960 Sex: F - SCR MAMM BILATERAL GUERLINE CAD DIGITALBILATERAL DIGITAL SCREENING MAMMOGRAM 3D/2D WITH CAD: 08/22/2020CLINICAL: Asymptomatic. Digital breast tomosynthesis was performed in addition to routine CC and MLO views. Current mammographic images were evaluated by either a [employer] M-Vu or a [employer] ImageChecker CAD (computer aided detection system). Comparison is made to exams dated 02/09/2018 mammogram and 12/14/2016 mammogram - [facility]. There are scattered fibroglandular tissues in both breasts. No suspicious mass, architectural distortion, malignant type calcification, or lymph node abnormality detected. Breast architecture is stable compared to prior exams.IMPRESSION: NEGATIVEThere is no mammographic evidence of malignancy. Resume annual screening mammography in one year. Lance Xavier/penrad:09/02/2020 11:18:52 Attending Technologist: Rebecca Underwood MM, [facility] MammographyImaging Technologist: Jacqueline Hernandez MM, [facility] Mammographyletter sent: BIRADS 1-2 Normal Mammogram BI-RADS: 1 Negative
--- NOTE | 2021-01-05 21:04 | ER ---
Nurse's Notes [facility] Name: Chasidy Smith Age: 60 yrs Sex: Female : 1960 Arrival Date: 01/05/2021 Time: 18:57 Bed Waiting Private MD: Diagnosis: Presentation: 01/05 19:04 Chief complaint: Patient's son or daughter states: daughter: chest pain, more on the R ca1 side since this morning. Reports general body weakness since this morning. Denies HX of heart attack. Coronavirus screen: Client denies travel out of the [place] in the last 14 days. At this time, the client does not indicate any symptoms associated with coronavirus-19. Ebola Screen: Patient negative for fever greater than or equal to 101.5 degrees Fahrenheit, and additional compatible Ebola Virus Disease symptoms Patient denies exposure to infectious person. Patient denies travel to an Ebola-affected area in the 21 days before illness onset. No symptoms or risks identified at this time. Initial Sepsis Screen: Does the patient meet any 2 criteria? No. Patient's initial sepsis screen is negative. Does the patient have a suspected source of infection? No. Patient's initial sepsis screen is negative. Risk Assessment: Do you want to hurt yourself or someone else? Patient reports no desire to harm self or others. Onset of symptoms was January 05, 2021. 19:04 Method Of Arrival: Ambulatory ca1 19:04 Acuity: RYAN 3 ca1 Historical: - Allergies: 19:08 No Known Allergies; ca1 - Home Meds: 19:08 metformin 1,000 mg Oral tab 1 tab 2 times per day [Active]; lisinopril 5 mg Oral tab 1 ca1 tab once daily [Active]; - PMHx: 19:08 Diabetes - NIDDM; Hypertension; ca1 - PSHx: 19:08 ; Hernia repair; abscesses (always admitted and sx is performed); ca1 - Immunization history:: Client reports receiving the 2nd dose of the Covid vaccine, Client reports receiving the 1st dose of the Covid vaccine, Pneumococcal vaccine is up to date, Flu vaccine is up to date. - Social history:: Smoking status: Patient denies any tobacco usage or history of. Vital Signs: 19:04 BP 165 / 69; Pulse 90; Resp 18 S; Temp 98.5(TE); Pulse Ox 98% on R/A; Weight 56.7 kg ca1 (R); Height 5 ft. 0 in. (152.40 cm) (R); Pain 8/10; 19:04 Body Mass Index 24.41 (56.70 kg, 152.40 cm) ca1 ED Course: 18:57 Patient arrived in ED. as 19:06 Triage completed. ca1 19:08 Arm band placed on right wrist. ca1 Administered Medications: No medications were administered Outcome: 21:03 Patient left the ED. ca1 Signatures: Guerline Sweet Cheryl, RN RN ca1
[2021-01-05 21:17] VITALS: BP 165/69; TEMP 98.5; O2SAT 98
--- NOTE | 2021-01-06 11:14 | EKG ---
Test Date: 2021-01-05 Test Time: 19:09:11 Bit Tripoler: EMILY MEASUREMENT RESULTS: Intervals: Rate: 84 OR: 148 QRSD: 68 QT: 368 QTc: 434 Olin: P: 54 OR: 148 QRS: 79 T: 67 INTERPRETIVE STATEMENTS: Normal sinus rhythm Normal ECG Compared to ECG 09/04/2020 16:46:36 No significant changes Electronically Signed On 01-06-21 11:13:22 CDT by Raul Napoles
== END 2021-01-05 21:03 | disposition left against medical advice (07) ==
LOC: ER 18:56
DX: Z53.21 Procedure and treatment not carried out due to patient leaving prior to being seen by health care provider (principal)
CPT/HCPCS: 93005; 99281

== ENCOUNTER 2022-01-09 12:59 | Inpatient (IN) | payer OTHER, SELFPAY ==
--- OUTSIDE RECORDS SUMMARY | 2022-01-09 13:03 | XMS REPORT | Continuity of Care Document ---
:1960 Author Organization [facility] t Address [address] [place] [address] [address] [place] [address] Care Team Providers Name Role Phone Ty Humphries MD Attending Clinician Alek HUMPHRIES Attending Clinician Unavailable Jarad GALLAGHER Attending Clinician Payers Payer Name Policy Type Policy Number Effective Date Expiration Date S jeyson MEDICAID CÉSAR PENDING 2020 PENDING 00:00:00 Problems This patient has no known problems. Allergies, Adverse Reactions, Alerts Allergy Allergy Status Severity Reaction(s) Onset Inactive Treating Comm ents Source Name Type Date Date Clinician NO KNOWN Drug [facility] This patient has no known medications. Procedures This patient has no known procedures. Encounters Start End Encounter Admission Attending Care Care Encounter Source Date/Time Date/Time Type Type Clinicians Facility Department ID 2020-03-25 2020-03-26 Emergency COLTON Humphries [id number] 21:50:30 03:12:00 Ty Briseno [id number] [place] [id number] [place] [id number] 2020-03-25 2020-03-25 Emergency X COLTON HUMPHRIES ERT [id number] [facility] 21:50:30 21:50:30 [facility] 2020-03-21 2020-03-21 Emergency Jarad, [facility] [id number] 11:51:42 14:34:00 Ed Briseno [id number] [place] [id number] [place] [id number] 2020-03-21 2020-03-21 Emergency X [facility] ERT [id number] [facility] 11:40:00 11:40:00 [facility] Results Test Description Test Time Test Comments Results Result Sourc e Comments SCR MAMM 2021-12-04 BILATERAL GUERLINE 13:33:01 CAD DIGITAL Name: Geremias : 1960 Sex: F - SCR MAMM BILATERAL GUERLINE CAD DIGITALBILATERAL DIGITAL SCREENING MAMMOGRAM 3D/2D WITH CAD: 12/04/2021LINICAL: Asymptomatic. Digital breast tomosynthesis was performed in addition to routine CC and MLO views. Current mammographic images were evaluated by [employer] CAD (computer-aided detection) software. Comparison is made to exams dated 08/22/2020 mammogram, 02/09/2018 mammogram, and 12/14/2016 mammogram - [facility]. There are scattered fibroglandular tissues in both breasts. No suspicious mass, architectural distortion, malignant type calcification, or lymph node abnormality detected. Breast architecture is stable compared to prior exams.IMPRESSION: NEGATIVEThere is no mammographic evidence of malignancy. Resume annual screening mammography in one year. Lance Fofana M.D. et/penrad:12/04/2021 13:33:01 Credit Administration Officer: Jacqueline Hernandez MM, [facility] sent: BIRADS 1-2 Normal Mammogram BI-RADS: 1 Negative COMPREHENSIVE METABOLIC PANEL 2021-11-16 02:45:49 Test Item Value Reference Range Interpretation Comme nts GLUCOSE (test code = 2216) 683 MG/DL 70-99 HH BUN (test code = 2207) 14 MG/DL 6-20 CREATININE (test code = 0.61 MG/DL 0.60-1.30 2213) eGFR (2020 CKD-EPI) (test 103 ML/MIN/1.73 >60 code = 80168) CALC BUN/CREAT (test code = 23 RATIO 6-28 2234) SODIUM (test code = 2230) 130 MEQ/L 133-146 L POTASSIUM (test code = 4.5 MEQ/L 3.5-5.4 2227) CHLORIDE (test code = 2214) 93 MEQ/L 95-107 L CARBON DIOXIDE (test code = 21 MEQ/L 19-2205) CALCIUM (test code = 2208) 8.7 MG/DL 8.5-10.5 PROTEIN, TOTAL (test code = 6.4 G/DL 6.1-8.3 2228) ALBUMIN (test code = 220) 4.0 G/DL 3.5-5.2 CALC GLOBULIN (test code = 2.4 G/DL 1.9-3.7 2239) CALC A/G RATIO (test code = 1.7 RATIO 1.0-2.6 2233) BILIRUBIN, TOTAL (test code 0.2 MG/DL See_Comment [Automated message] The = 2206) system which ge nerated this result transmit alex reference range : <=1.2. The reference range was not used to interpr et this result as eliane l/abnormal. ALKALINE PHOSPHATASE (test 113 U/L 40-136 code = 2204) AST (test code = 2218) 17 U/L 9-40 ALT (test code = 2219) 21 U/L 5-40 LIPID [id number] 02:45:49 Test Item Value Reference Range Interpretation Comments CHOLESTEROL (test 225 MG/DL <200 H code = 2210) TRIGLYCERIDES (test 337 MG/DL <150 H code = 2232) HDL CHOLESTEROL (test 56 MG/DL >39 code = 2220) CALC LDL CHOL (test 121 MG/DL <100 H NOTE: C ALCULATED LDL code = 2237) IS BASED ON NIXON-REDD METHOD WHICHINCLUDES ADJUSTABLE TRIGLYCERIDE:VL DL CHOLESTEROL RAT IO.THIS FACTOR VARIES B Y MEASURED TRIGLY CERIDE AND NON-HDLCHOL ESTEROL CONCENTRATIONS WITH INCREASED CALCU LATED LDL SEENIN HIGH ER TRIGLYCERIDE OR LOWER NON-HDL SPECIME NS. FOR MOREINFORMATION , SEE CLIENT ANNOUNCE MENT AT [email or web address] [email or web address] RATIO LDL/HDL 2.16 RATIO <3.22 UN LESS (test code = 2238) OTHERWISE INDICATED, ALL TESTING PER [facility]MED [facility], [place]. [address] [facility] [place] [address] LABORATORY DIRE CTOR: LETICIA SALGADO M.D. CLIA NUMBER [id number] CAP ACCREDITATION N O. [id number] HEMOGLOBIN [id number] 05:20:09 Test Item Value Reference Range Interpretation Comments HEMOGLOBIN A1c >15.5 % 4.2-5.6 H ANAYA RICAN DIABETES (test code = 40031) ASSOCIAT ION GUIDELINES FOR HGB A1C: PREDIABETES/INC REASED RISK . . . . . . . 5 .7-6.4% DIAGNOSIS O F DIABETES . . . . . . . . . >=6.5% WITH CO NFIRMATION OR APPROPRIATE SYMPTOMS NOTE: ASSAY MA Y BE AFFECTED BY HEMOGLOBINOPATH IES (SICKLE CELL ANEMIA, S-C DISEASE, OTHERS ) OR ARTIFICIALLY LO WERED BY DECREASED RED C ELL SURVIVAL (HEMOLYTIC ANEM IAS, BLOOD LOSS, ETC.) . CONSIDER ALTERNATE TESTI NG OR LABORATORY CONS ULTATION. SCR MAMM BILATERAL GUERLINE CAD [id number] 11:18:52 Name: Geremias : 1960 Sex: F - SCR MAMM BILATERAL GUERLINE CAD DIGITALBILATERAL DIGITAL SCREENING MAMMOGRAM 3D/2D WITH CAD: 08/22/2020CLINICAL: Asymptomatic. Digital breast tomosynthesis was performed in addition to routine CC and MLO views. Current mammographic images were evaluated by either a [employer] M-Vu or a [employer] Image[employer] CAD (computer aided detection system). Comparison is made to exams dated 02/09/2018 mammogram and 12/14/2016 mammogram - [facility]. There are scattered fibroglandular tissues in both breasts. No suspicious mass, architectural distortion, malignant type calcification, or lymph node abnormality detected. Breast architecture is stable compared to prior exams.IMPRESSION: NEGATIVEThere is no mammographic evidence of malignancy. Resume annual screening mammography in one year. Lance Xavier/penrad:09/02/2020 11:18:52 Attending Technologist: Rebecca Underwood MM, [facility] MammographyImaging Technologist: Jacqueline Hernandez MM, [facility] Mammographyletter sent: BIRADS 1-2 Normal Mammogram BI-RADS: 1 Negative
[2022-01-09] MEDS ORDERED: METHYLPREDNISOLONE 125 MG INJ ONE (14:23)
[2022-01-09] MEDS ORDERED: KETOROLAC 30 MG/ML INJ ONE (14:23)
[2022-01-09 14:36] LABS: Absolute Lymphocytes (CBC) 1.4 K/uL (0.7-4.9); Hematocrit 40.5 % (36.0-45.0); Lymphocytes % 16.1 % (15.3-44.8); MPV 9.6 fL (7.6-11.3)
[2022-01-09 15:06] LABS: Albumin 3.2 g/dL (3.4-5.0); Bilirubin Total 0.5 mg/dL (0.2-1.0); Potassium 4.1 mmol/L (3.5-5.1); Protein, Total 6.6 g/dL (6.4-8.2)
--- NOTE | 2022-01-09 15:28 | RAD REPORT ---
EXAM DESCRIPTION: CT - Stone Protocol - 01/09/2022 2:51 pm CLINICAL HISTORY: BACK Pain COMPARISON: Abdomen Pelvis W Contrast dated 09/04/2020 TECHNIQUE: Axial 3 mm thick images were obtained without oral or IV contrast. The icwoc-au-blps span s the entirety of the system including uppermost abdomen and lung bases. All CT scans are performed using dose optimization technique as appropriate and may include automated exposure control or mA/KV adjustment according to patient size. FINDINGS: No acute lung base finding. No hydronephrosis is present and no obstructing ureteral calculi. No suspicious renal masses. Isodens e masses and pyelonephritis are not excluded on a stone protocol CT scan. No significant adrenal find ing. No urinary bladder suspicious finding. Well filled urinary bladder deviates the uterus to the left. No uterine or ovarian suspicious finding . Imaged portions of the liver, spleen and pancreas show no suspicious findings on non-contrast imaging . No gallbladder or biliary tree abnormality identified. No suspicious bowel findings. Appendix is normal. No contrast was administered to the patient. Hyperd ense material within the colon is presumed to be bismuth medication or similar high density ingested material. No hernia, mass or bulky lymphadenopathy noted. No free air, free fluid or inflammatory stranding. Disc and bone degenerative changes are present. Lumbar and lower thoracic findings are detailed in se parate report. No bony pelvic acute finding and no acute hip joint finding. IMPRESSION: No hydronephrosis, obstructing calculus or acute finding. No acute soft tissue findin g on this study. Lumbar spine degenerative changes are present fully detailed in separate CT lumbar spine report. Isodense masses and pyelonephritis are not excluded on stone protocol technique.
[2022-01-09] MEDS ORDERED: INSULIN -REGULAR HUMAN 50 UNIT/0.5 ML ML ONE ×2 (15:29→19:29)
--- NOTE | 2022-01-09 15:40 | RAD REPORT ---
EXAM DESCRIPTION: CT - Spine Lumbar Wo Con - 01/09/2022 2:52 pm CLINICAL HISTORY: Low back pain, increased fracture risk COMPARISON: CT abdomen and pelvis imaging 09/04/2020 TECHNIQUE: Thin section axial imaging of the lumbar spine was performed from T10 through S4. Sagitt al and coronal reconstruction images were generated and reviewed. All CT scans are performed using dose optimization technique as appropriate and may include automated exposure control or mA/KV adjustment according to patient size. FINDINGS: Large right-side anterior and lateral endplate spurs are present T10-T12 similar to compar heladio. No acute findings seen in the lower thoracic spine. L1-L4 vertebrae are normal in height and alignment. Large right lateral endplate spurs cause bridging ossification at the L1-2 level and left lateral L2-3 level. No acute bone finding in these for verte brae. Facet joint degenerative changes are present. Central canal is borderline stenotic at L3-4. Degenerative gas is present in the disc space L4-5. Circumferential bulging of disc material is prese nt. Ligamentous thickening is seen. Prominent facet joint degenerative changes are present. Central s david stenosis to 8 mm is present. There is concave contour to the superior endplate of L5 new from prior imaging. Fracture lines are se en parallel to the L5 superior endplate. Severe L5-S1 facet joint degenerative change present without pars defect. Slight buckling of the posterior wall of L5 is present. Overall height loss is 20%. No pathologic component seen. No central spinal stenosis or significant foraminal stenosis at L5-S1. No acute sacral ala finding. IMPRESSION: Acute/subacute compression fracture changes in the superior aspect of the L5 body. No pa thologic component. L5 compression is new from August 2020, estimated at 20% height loss. L4-5 central spinal stenosis secondary to broad-based disc bulge, facet hypertrophy, ligamentous thic kening and the affects of the partial compression superior aspect of L5. Degenerative changes elsewhere in the lumbar spine and lower thoracic spine without acute component. No significant canal or foramen stenoses identifiable.
[2022-01-09] MEDS ORDERED: INSULIN -REGULAR HUMAN 100 UNIT in NA CHLORIDE 0.9% 100 ML IV SCH ×2 (16:00→16:45)
--- NOTE | 2022-01-09 16:33 | P.HP ---
Certification for Inpatient Patient admitted to: Inpatient With expected LOS: >2 Midnights Patient will require the following post-hospital care: None Practitioner: I am a practitioner with admitting privileges, knowledge of patient current condition, hospital course, and medical plan of care. Services: Services provided to patient in accordance with Admission requirements found in Title 42 Section 412.3 of the Code of Federal Regulations Patient History Date of Service: 01/09/22 Reason for admission: Back pain History of Present Illness: 61-year-old female past medical history of hypertension, diabetes mellitus type 2, on oral hypoglycemic with metformin who presented because of worsening low back pain radiating to the left leg since the last 2 weeks. Pain has become associated with difficulty with ambulation. Patient also admits to gait unsteadiness. She denies any recent fall. She denies any headache or dizziness. She denies any other extremity weakness. On admission she had CT of the lumbar spine showing acute L5 compression fracture as well as spinal stenosis changes. Patient also had a CT of the abdomen and pelvis with no significant findings. Her sodium was noted at low at 123, lipase was mildly elevated at 610, noted with marked elevated glucose of 73 and anion gap of 16. Patient denies any nausea vomiting or anterior abdominal wall pain. She admits to running out of her lisinopril but she stated she is taking her metformin. She is anxious to go home and repeatedly states that she came mainly for pain control. Plan is being made to discussed with neurosurgery at [facility] for possible compression fracture intervention Allergies No Known Drug Allergies Allergy (Verified 03/06/17 21:04) Unknown No Known Allergies Allergy (Uncoded 03/06/17 21:04) Unknown Home Medications: Glimepiride [Amaryl] 4 mg PO BID #60 tablet 03/10/17 Metformin HCl [Glucophage] 1,000 mg PO BIDWM #60 tablet 03/10/17 lisinopriL [Prinivil*] 5 mg PO DAILY 05/06/17 Gabapentin [Neurontin] 200 mg PO TID #90 cap 05/21/17 Metoprolol Tartrate [Lopressor*] 12.5 mg PO BID 6AM 6PM #30 tab 05/21/17 - Past Medical/Surgical History Diabetic: Yes -: DM -: HTN -: X4 -: hernia repair - Family History Father -: Heart disease, Diabetes Mother -: GI disease, Diabetes Sister -: Hypertension, Diabetes - Social History Smoking Status: Never smoker Alcohol use: No CD- Drugs: No Caffeine use: Yes Place of Residence: Home Review of Systems Musculoskeletal: Back Pain Physical Examination - Physical Exam General: Alert, In no apparent distress, Oriented x3, Cooperative HEENT: Atraumatic, Normocephalic, PERRLA Neck: Supple, JVD not distended Respiratory: Clear to auscultation bilaterally, Normal air movement Cardiovascular: No edema, Normal pulses, Regular rate/rhythm, Normal S1 S2 Gastrointestinal: Normal bowel sounds, Soft and benign, Non-distended, No tenderness, No masses Musculoskeletal: Tenderness (lower lumbar area , limited left leg raise to 30% due to pain ,) Neurological: Normal speech, Normal tone, Sensation intact, Cranial nerves 3-12 intact - Studies Laboratory Data (last 24 hrs) 01/09/22 14:12: Sodium 123 L, Potassium 4.1, BUN 18, Creatinine 1.24, Glucose 783 H*, Total Bilirubin 0.5, AST 16, ALT 28, Alkaline Phosphatase 120 H, Lipase 638 H 01/09/22 14:12: WBC 8.8, Hgb 13.5, Hct 40.5, Plt Count 245 Assessment and Plan - Advance Directives Does patient have a Living Will: No Does patient have a Durable POA for Healthcare: No Physician Review: Patient Assessed, Agree with Above Assessment and Plan Physician Review Additional Text: CT - Spine Lumbar Wo Con - 01/09/2022 2:52 pm CLINICAL HISTORY: Low back pain, increased fracture risk COMPARISON: CT abdomen and pelvis imaging 09/04/2020 TECHNIQUE: Thin section axial imaging of the lumbar spine was performed from T10 through S4. Sagittal and coronal reconstruction images were generated and reviewed. All CT scans are performed using dose optimization technique as appropriate and may include automated exposure control or mA/KV adjustment according to patient size. FINDINGS: Large right-side anterior and lateral endplate spurs are present T10- T12 similar to comparison. No acute findings seen in the lower thoracic spine. L1-L4 vertebrae are normal in height and alignment. Large right lateral endplate spurs cause bridging ossification at the L1-2 level and left lateral L2-3 level. No acute bone finding in these for vertebrae. Facet joint degenerative changes are present. Central canal is borderline stenotic at L3-4. Degenerative gas is present in the disc space L4-5. Circumferential bulging of disc material is present. Ligamentous thickening is seen. Prominent facet joint degenerative changes are present. Central spinal stenosis to 8 mm is present. There is concave contour to the superior endplate of L5 new from prior imaging. Fracture lines are seen parallel to the L5 superior endplate. Severe L5-S1 facet joint degenerative change present without pars defect. Slight buckling of the posterior wall of L5 is present. Overall height loss is 20%. No pathologic component seen. No central spinal stenosis or significant foraminal stenosis at L5-S1. No acute sacral ala finding. IMPRESSION: Acute/subacute compression fracture changes in the superior aspect of the L5 body. No pathologic component. L5 compression is new from August 2020, estimated at 20% height loss. L4-5 central spinal stenosis secondary to broad-based disc bulge, facet hypertrophy, ligamentous thickening and the affects of the partial compression superior aspect of L5. Degenerative changes elsewhere in the lumbar spine and lower thoracic spine without acute component. No significant canal or foramen stenoses identifiable. CT abdomen and pelvis FINDINGS: No acute lung base finding. No hydronephrosis is present and no obstructing ureteral calculi. No suspicious renal masses. Isodense masses and pyelonephritis are not excluded on a stone protocol CT scan. No significant adrenal finding. No urinary bladder suspicious finding. Well filled urinary bladder deviates the uterus to the left. No uterine or ovarian suspicious finding. Imaged portions of the liver, spleen and pancreas show no suspicious findings on non-contrast imaging. No gallbladder or biliary tree abnormality identified. No suspicious bowel findings. Appendix is normal. No contrast was administered to the patient. Hyperdense material within the colon is presumed to be bismuth medication or similar high density ingested material. No hernia, mass or bulky lymphadenopathy noted. No free air, free fluid or inflammatory stranding. Disc and bone degenerative changes are present. Lumbar and lower thoracic findings are detailed in separate report. No bony pelvic acute finding and no acute hip joint finding. IMPRESSION: No hydronephrosis, obstructing calculus or acute finding. No acute soft tissue finding on this study. Lumbar spine degenerative changes are present fully detailed in separate CT lumbar spine report. Isodense masses and pyelonephritis are not excluded on stone protocol technique. Impression Acute L5 compression fracture Acute on chronic back pain Elevated lipase level DM with uncontrolled hyperglycemia Hypertensionuncontrolled Pseudohyponatremia Plan We will admit patient to observation We will try to transfer patient to higher level of care for neuro surgery evaluation As needed pain medication with IV morphine and [place] as needed Since clinically asymptomatic for pancreatitis as well as no CT findings, we start patient on p.o. intake Despite mild elevated anion gap although actual calculated anion gap of 15. I do not think patient is in DKA We DC insulin drip Starts insulin sliding scale with Accu-Chek Can resume oral hypoglycemic Obtain hemoglobin A1c Obtain PT/OT Subcutaneous Lovenox for DVT prophylaxis Restart patient on BP meds with amlodipine, avoid lisinopril now until serum sodium corrects Possible hospital stay for 2 to 3 days, may need SNF
[2022-01-09] MEDS ORDERED: ONDANSETRON 4 MG/2 ML VIAL IV PRN (16:39)
[2022-01-09] MEDS ORDERED: ALBUTEROL 2.5 MG/3 ML NEB SOL NEB PRN (16:39)
[2022-01-09] MEDS ORDERED: HYDROCODONE/APAP 5/325 MG TAB PO PRN (16:44)
[2022-01-09] MEDS ORDERED: HYDRALAZINE HCL 20 MG/ML VIAL IV PRN (16:44)
[2022-01-09] MEDS ORDERED: AMLODIPINE 10 MG TAB PO SCH (16:44)
[2022-01-09] MEDS ORDERED: GLIMEPIRIDE 2 MG TABLET PO SCH (17:00)
[2022-01-09] MEDS ORDERED: NA CHLORIDE 0.9% 1,000 ML ONE (17:31)
[2022-01-09] MEDS ORDERED: MORPHINE 2 MG/ML SYR ONE ×2 (17:31→21:48)
--- NOTE | 2022-01-09 17:46 | EDPHYS ---
Physician Documentation [facility] Name: Chasidy Smith Age: 61 yrs Sex: Female : 1960 Arrival Date: 01/09/2022 Time: 13:00 Bed 13 Private MD: ED Physician Bertrand Gongora HPI: 01/09 14:06 This 61 yrs old Female presents to ER via Ambulatory with complaints of Back kdr Pain, Leg Pain - left. 14:06 The patient presents with pain that is acute, with no known mechanism of injury. The kdr symptoms are located in the low back. Onset: The symptoms/episode began/occurred gradually, 8 day(s) ago. The pain radiates to the left low back and right low back, to the left quadriceps, left knee, left walls, anterior aspect of left ankle and dorsum of left foot. Associated signs and symptoms: The patient has no apparent associated signs or symptoms. The problem was sustained from unknown cause. Modifying factors: The patient symptoms are alleviated by nothing, the patient symptoms are aggravated by any movement. Severity of symptoms: At their worst the symptoms were mild, in the emergency department the symptoms are unchanged. The patient has not experienced similar symptoms in the past. The patient has not recently seen a physician. Historical: - Allergies: 13:11 No Known Allergies; ab2 - PMHx: 13:11 Diabetes - NIDDM; Hypertension; ab2 - PSHx: 13:11 None; ab2 - Immunization history:: Adult Immunizations up to date. - Social history:: Smoking status: Patient denies any tobacco usage or history of. ROS: 14:06 Constitutional: Negative for fever, chills, and weight loss, Eyes: Negative for injury, kdr pain, redness, and discharge, Neck: Negative for injury, pain, and swelling, Cardiovascular: Negative for chest pain, palpitations, and edema, Respiratory: Negative for shortness of breath, cough, wheezing, and pleuritic chest pain, Abdomen/GI: Negative for abdominal pain, nausea, vomiting, diarrhea, and constipation, : Negative for injury, bleeding, discharge, and swelling, MS/Extremity: Negative for injury and deformity, Skin: Negative for injury, rash, and discoloration, Neuro: Negative for headache, weakness, numbness, tingling, and seizure activity. 14:06 Back: Positive for decreased range of motion, pain at rest, Negative for radiated pain. Exam: 14:06 Constitutional: This is a well developed, well nourished patient who is awake, alert, kdr and in no acute distress. Head/Face: Normocephalic, atraumatic. Eyes: Pupils equal round and reactive to light, extra-ocular motions intact. Lids and lashes normal. Conjunctiva and sclera are non-icteric and not injected. Cornea within normal limits. Periorbital areas with no swelling, redness, or edema. Neck: Trachea midline, no thyromegaly or masses palpated, and no cervical lymphadenopathy. Supple, full range of motion without nuchal rigidity, or vertebral point tenderness. No Meningismus. Chest/axilla: Normal chest wall appearance and motion. Nontender with no deformity. No lesions are appreciated. Cardiovascular: Regular rate and rhythm with a normal S1 and S2. No gallops, murmurs, or rubs. Normal PMI, no JVD. No pulse deficits. Respiratory: Lungs have equal breath sounds bilaterally, clear to auscultation and percussion. No rales, rhonchi or wheezes noted. No increased work of breathing, no retractions or nasal flaring. Abdomen/GI: Soft, non-tender, with normal bowel sounds. No distension or tympany. No guarding or rebound. No evidence of tenderness throughout. Back: No spinal tenderness. No costovertebral tenderness. Full range of motion. Skin: Warm, dry with normal turgor. Normal color with no rashes, no lesions, and no evidence of cellulitis. MS/ Extremity: Pulses equal, no cyanosis. Neurovascular intact. Full, normal range of motion. Neuro: Awake and alert, GCS 15, oriented to person, place, time, and situation. Cranial nerves II-XII grossly intact. Motor strength 5/5 in all extremities. Sensory grossly intact. Cerebellar exam normal. Normal gait. Psych: Awake, alert, with orientation to person, place and time. Behavior, mood, and affect are within normal limits. Vital Signs: 13:12 BP 174 / 82; Pulse 91; Resp 17; Temp 97.7; Pulse Ox 100% ; Weight 54.43 kg; Height 5 ab2 ft. 0 in. (152.40 cm); Pain 10/10; 15:35 BP 171 / 73; Pulse 88; Resp 18 S; Pulse Ox 99% on R/A; jd3 16:57 BP 175 / 86; Pulse 99; Resp 18 S; Pulse Ox 100% on R/A; jd3 17:47 BP 172 / 86; Pulse 91; Resp 20 S; Pulse Ox 98% on R/A; jd3 19:59 BP 156 / 65; Pulse 97; Resp 16; Temp 98.4(O); Pulse Ox 97% ; ke1 13:12 Body Mass Index 23.44 (54.43 kg, 152.40 cm) ab2 MDM: 14:06 Data reviewed: vital signs, nurses notes, lab test result(s), radiologic studies. kdr Counseling: I had a detailed discussion with the patient and/or guardian regarding: the historical points, exam findings, and any diagnostic results supporting the discharge/admit diagnosis, the presence of at least one elevated blood pressure reading (>120/80) during this emergency department visit, radiology results, the need for outpatient follow up. 17:45 Patient medically screened. kdr 01/09 14:05 Order name: CBC with Diff; Complete Time: 15:17 kdr 01/09 14:05 Order name: CMP; Complete Time: 15:17 kdr 01/09 14:05 Order name: Lipase; Complete Time: 15:17 kdr 01/09 15:50 Order name: SARS-COV-2 RT PCR (Document "Date of Onset" if Symptomatic); Complete Time: jd3 17:52 01/09 16:47 Order name: Hemoglobin A1c EDMS 01/09 16:47 Order name: Comprehensive Metabolic Panel EDMS 01/09 16:47 Order name: Comprehensive Metabolic Panel EDMS 01/09 16:47 Order name: Lipase EDMS 01/09 16:47 Order name: Lipase EDMS 01/09 16:47 Order name: Lipase EDMS 01/09 16:47 Order name: Lipid Profile EDMS 01/09 16:47 Order name: Lipid Profile EDMS 01/09 16:47 Order name: Magnesium EDMS 01/09 14:05 Order name: CT Stone Protocol; Complete Time: 16:00 kdr 01/09 14:05 Order name: CT Lumbar Spine Wo Con; Complete Time: 16:00 kdr 01/09 16:47 Order name: Magnesium EDMS 04/30 16:47 Order name: Magnesium EDAL 01/09 16:47 Order name: Magnesium EDAL 01/09 16:49 Order name: Basic Metabolic Panel EDAL 01/09 16:59 Order name: Glucose, Ancillary Testing; Complete Time: 17:52 EDMS 01/09 17:23 Order name: BNP; Complete Time: 18:14 kdr 01/09 18:06 Order name: Urine Dipstick-Ancillary; Complete Time: 18:14 EDAL 01/09 18:15 Order name: BMP kdr 01/09 18:15 Order name: Glucose, Ancillary Testing; Complete Time: 18:32 EDMS 01/09 18:50 Order name: Basic Metabolic Panel; Complete Time: 18:59 EDMS 01/09 20:12 Order name: Glucose, Ancillary Testing EDAL 01/09 14:05 Order name: IV Saline Lock; Complete Time: 14:16 kdr 01/09 14:05 Order name: Labs collected and sent; Complete Time: 14:16 kdr 01/09 16:47 Order name: CONS Physician Consult EDAL 01/09 16:47 Order name: Occupational Therapy Consult [facility] 01/09 16:47 Order name: Physical Therapy Consult [facility] 01/09 16:47 Order name: 60g Consistent Carbohydrate (ADA 1800/2000) EDAL Administered Medications: 14:24 Drug: SOLU-Medrol (methylPrednisoLONE) 60 mg Route: IVP; Site: left forearm; jd3 15:19 Follow up: Response: No adverse reaction jd3 14:24 Drug: Ketorolac 15 mg Route: IVP; Site: left forearm; jd3 15:19 Follow up: Response: No adverse reaction jd3 15:34 Drug: Insulin Regular Human 12 units {Co-Signature: ab2 (Micheal Contreras).} Route: jd3 IVP; Site: left forearm; 15:51 Follow up: Response: No adverse reaction jd3 15:47 Drug: Insulin Drip - (Insulin Regular Human 100 units, NS 0.9% 100 ml) {Co-Signature: jd3 sanders (Valorie Barrios RN).} Route: IV; Rate: calculated rate; Site: right forearm; 16:58 Follow up: Rate change 2.5 units/hr jd3 17:55 Follow up: Rate change 1.25 units/hr jd3 19:12 Follow up: Response: No adverse reaction; IV Status: Order to discontinue infusion jd3 17:32 Drug: NS 0.9% 1000 ml Route: IV; Rate: 1 bolus; Site: left forearm; jd3 17:32 Drug: morphine 2 mg Route: IVP; Site: left forearm; jd3 18:14 Follow up: Response: No adverse reaction; RASS: Alert and Calm (0) jd3 17:32 Drug: Zofran (Ondansetron) 4 mg Route: IVP; Site: left forearm; jd3 18:14 Follow up: Response: No adverse reaction jd3 19:34 Drug: Insulin Regular Human 10 units {Co-Signature: rios (Tierney Moncada RN).} Route: ke1 IVP; Site: left forearm; 20:32 Follow up: Response: Blood sugar is lowered ke1 21:45 Drug: morphine 2 mg Route: IVP; Site: left forearm; ke1 21:49 Follow up: Response: Medication administered at discharge. ke1 Disposition Summary: 01/09/22 17:45 Transfer Ordered Reason: Higher level of care kdr Condition: Serious kdr Problem: an acute exacerbation kdr Symptoms: have improved kdr Transfer Location: [facility](01/09/22 17:49) kdr Accepting Physician: CARLEY Qaun(01/09/22 21:49) ke Diagnosis - Upper GI Bleed kdr - Acute pancreatitis without necrosis or infection, unspecified kdr - Boderline DKA, Acute on Chronic Compression Fractures Lumbar Spine kdr Forms: - Medication Reconciliation Form kdr - SBAR form kdr Signatures: Dispatcher [employer] EDMS Bertrand Gongora MD MD kdr Edgar Porter FNP-lAek [id number] Regulo Holder RN RN Micheal Mcclure Kouassi RN RN ke1 Micheal Contreras ab2 Valorie nation Corrections: (The following items were deleted from the chart) 16:38 16:36 Urine Dipstick-Ancillary reviewed. kdr EDMS 17:46 17:45 [facility] kdr kdr 17:49 17:45 [facility] kdr kdr 17:49 17:46 [facility] kdr kdr 17:49 17:46 Anemia, unspecified kdr kdr 21:49 17:49 [facility] kdr ke1
--- NOTE | 2022-01-09 17:46 | ER ---
Nurse's Notes [facility] Name: Chasidy Smith Age: 61 yrs Sex: Female : 1960 Arrival Date: 01/09/2022 Time: 13:00 Bed 13 Private MD: Diagnosis: Acute pancreatitis without necrosis or infection, unspecified;Boderline DKA, Acute on Chronic Compression Fractures Lumbar Spine Presentation: 01/09 13:08 Chief complaint: Patient's son or daughter states: "She has been having lower back pain ab2 that started on the left side and went to the right side of the back and is now radiating down the back of her left leg. She cant lift her leg.". Coronavirus screen: Vaccine status: Patient reports receiving the 2nd dose of the covid vaccine. Client denies travel out of the [place] in the last 14 days. At this time, the client does not indicate any symptoms associated with coronavirus-19. Ebola Screen: Patient negative for fever greater than or equal to 101.5 degrees Fahrenheit, and additional compatible Ebola Virus Disease symptoms Patient denies exposure to infectious person. Patient denies travel to an Ebola-affected area in the 21 days before illness onset. No symptoms or risks identified at this time. Initial Sepsis Screen: Does the patient meet any 2 criteria? No. Patient's initial sepsis screen is negative. Does the patient have a suspected source of infection? No. Patient's initial sepsis screen is negative. Risk Assessment: Do you want to hurt yourself or someone else? Patient reports no desire to harm self or others. Onset of symptoms is unknown. 13:08 Method Of Arrival: Ambulatory ab2 13:08 Acuity: RYAN 3 ab2 Triage Assessment: 13:10 General: Appears in no apparent distress. uncomfortable, Behavior is calm, cooperative, ab2 appropriate for age. Pain: Complains of pain in low back area Pain radiates to left leg. Neuro: Level of Consciousness is awake, alert, obeys commands, Oriented to person, place, time, situation, Appropriate for age Fan Mail Editor are equal bilaterally Moves all extremities. Gait is steady. Cardiovascular: No deficits noted. Denies chest pain, shortness of breath, Patient's skin is warm and dry. Respiratory: Airway is patent Respiratory effort is even, unlabored, Respiratory pattern is regular, symmetrical. : Denies burning with urination, urinary frequency, urgency. Musculoskeletal: Range of motion: intact in all extremities, Reports pain in back. Historical: - Allergies: 13:11 No Known Allergies; ab2 - PMHx: 13:11 Diabetes - NIDDM; Hypertension; ab2 - PSHx: 13:11 None; ab2 - Immunization history:: Adult Immunizations up to date. - Social history:: Smoking status: Patient denies any tobacco usage or history of. Screenin:26 Abuse screen: Denies threats or abuse. Nutritional screening: No deficits noted. jd3 Tuberculosis screening: No symptoms or risk factors identified. Fall Risk Ambulatory Aid- None/Bed Rest/Nurse Assist (0 pts). Gait- Normal/Bed Rest/Wheelchair (0 pts) Mental Status- Oriented to own ability (0 pts). Total Young Fall Scale indicates No Risk (0-24 pts). Assessment: 14:15 General: Appears in no apparent distress. comfortable, Behavior is calm, cooperative, jd3 appropriate for age. Pain: Complains of pain in low back area Pain radiates to right leg and left leg Quality of pain is described as sharp, tingling. Neuro: Level of Consciousness is awake, alert, obeys commands, Oriented to person, place, time, situation. Cardiovascular: Denies chest pain, Capillary refill < 3 seconds Patient's skin is warm and dry. Respiratory: Airway is patent Respiratory effort is even, unlabored, Respiratory pattern is regular, symmetrical, Denies cough, shortness of breath. GI: No signs and/or symptoms were reported involving the gastrointestinal system. : No signs and/or symptoms were reported regarding the genitourinary system. EENT: No signs and/or symptoms were reported regarding the EENT system. Derm: Skin is intact, Skin is dry, Skin is normal, Skin temperature is warm. Musculoskeletal: Circulation, motion, and sensation intact. Range of motion: intact in all extremities. 15:35 Reassessment: Patient appears in no apparent distress at this time. Patient and/or jd3 family updated on plan of care and expected duration. Pain level reassessed. Patient is alert, oriented x 3, equal unlabored respirations, skin warm/dry/pink. 16:57 Reassessment: Patient appears in no apparent distress at this time. No changes from jd3 previously documented assessment. Patient and/or family updated on plan of care and expected duration. Pain level reassessed. Patient is alert, oriented x 3, equal unlabored respirations, skin warm/dry/pink. 17:47 Reassessment: Patient appears in no apparent distress at this time. No changes from jd3 previously documented assessment. Patient and/or family updated on plan of care and expected duration. Pain level reassessed. Patient is alert, oriented x 3, equal unlabored respirations, skin warm/dry/pink. 20:41 Reassessment: Report called to nurse Fuentes at [facility]. ke1 21:45 Pain: Complains of pain in back lower Pain currently is 6 out of 10 on a pain scale. ke1 Vital Signs: 13:12 BP 174 / 82; Pulse 91; Resp 17; Temp 97.7; Pulse Ox 100% ; Weight 54.43 kg; Height 5 ab2 ft. 0 in. (152.40 cm); Pain 10/10; 15:35 BP 171 / 73; Pulse 88; Resp 18 S; Pulse Ox 99% on R/A; jd3 16:57 BP 175 / 86; Pulse 99; Resp 18 S; Pulse Ox 100% on R/A; jd3 17:47 BP 172 / 86; Pulse 91; Resp 20 S; Pulse Ox 98% on R/A; jd3 19:59 BP 156 / 65; Pulse 97; Resp 16; Temp 98.4(O); Pulse Ox 97% ; ke1 13:12 Body Mass Index 23.44 (54.43 kg, 152.40 cm) ab2 ED Course: 13:00 Patient arrived in ED. am2 13:02 Bertrand Gongora MD is Attending Physician. kdr 13:10 Triage completed. ab2 13:12 Arm band placed on right wrist. ab2 13:21 Regulo Holder RN is Primary Nurse. jd3 14:15 Inserted saline lock: 20 gauge in left forearm, using aseptic technique. Blood jd3 collected. 14:27 Patient has correct armband on for positive identification. Bed in low position. Call jd3 light in reach. Side rails up X 1. Adult w/ patient. Pulse ox on. NIBP on. 14:53 CT Stone Protocol In Process Unspecified. EDMS 14:54 CT Lumbar Spine Wo Con In Process Unspecified. EDMS 16:11 initiated a transfer with Robert Elder Rn from the [facility] Transfer [facility]. eb 16:[address] James the neurologist semiconductor wafers saw operator for [facility] with Dr. Gongora for eb patient transfer consultation. 17:[address] Jones the hospitalist semiconductor wafers saw operator for [facility] with Dr. Fransisca marshall for patient transfer consultation. 17:28 connected the package line relief operator semiconductor wafers saw operator for [facility] with Dr. Gongora for eb patient transfer consultation. 20:07 Primary Nurse role handed off by Regulo Holder RN cs9 20:29 Dayton Kimball RN is Primary Nurse. ke1 Administered Medications: 14:24 Drug: SOLU-Medrol (methylPrednisoLONE) 60 mg Route: IVP; Site: left forearm; jd3 15:19 Follow up: Response: No adverse reaction jd3 14:24 Drug: Ketorolac 15 mg Route: IVP; Site: left forearm; jd3 15:19 Follow up: Response: No adverse reaction jd3 15:34 Drug: Insulin Regular Human 12 units {Co-Signature: ab2 (Micheal Contreras).} Route: jd3 IVP; Site: left forearm; 15:51 Follow up: Response: No adverse reaction jd3 15:47 Drug: Insulin Drip - (Insulin Regular Human 100 units, NS 0.9% 100 ml) {Co-Signature: jd3 sanders (Valorie Barrios RN).} Route: IV; Rate: calculated rate; Site: right forearm; 16:58 Follow up: Rate change 2.5 units/hr jd3 17:55 Follow up: Rate change 1.25 units/hr jd3 19:12 Follow up: Response: No adverse reaction; IV Status: Order to discontinue infusion jd3 17:32 Drug: NS 0.9% 1000 ml Route: IV; Rate: 1 bolus; Site: left forearm; jd3 17:32 Drug: morphine 2 mg Route: IVP; Site: left forearm; jd3 18:14 Follow up: Response: No adverse reaction; RASS: Alert and Calm (0) jd3 17:32 Drug: Zofran (Ondansetron) 4 mg Route: IVP; Site: left forearm; jd3 18:14 Follow up: Response: No adverse reaction jd3 19:34 Drug: Insulin Regular Human 10 units {Co-Signature: rios (Tierney Moncada RN).} Route: ke1 IVP; Site: left forearm; 20:32 Follow up: Response: Blood sugar is lowered ke1 21:45 Drug: morphine 2 mg Route: IVP; Site: left forearm; ke1 21:49 Follow up: Response: Medication administered at discharge. ke1 Outcome: 17:45 ER care complete, transfer ordered by . kdr 21:49 Patient left the ED. ke1 Signatures: Dispatcher [employer] EDMS Bertrand Gongora MD MD kdr Moreno, Amanda amRegulo Wood RN RN Annalee Lan Christine 9 Micheal Contreras Kouassi, RN RN ke1 Micheal Contreras ab2 Valorie Barrios RN sanders Tierney nation
[2022-01-09 18:06] LABS: Urine Blood Negative (Negative); Urine Glucose 3+ (Negative); Urine Protein Negative (Negative); Urine Specific Gravity <=1.005 (1.005-1.030); Urine pH 5.5 (5.0-7.0)
[2022-01-09] MEDS ORDERED: INSULIN GLARGINE 100 UNIT/ML SQ SCH (21:00)
[2022-01-09 22:29] VITALS: BP 156/65; TEMP 98.4; O2SAT 97
[2022-01-10] MEDS ORDERED: ENOXAPARIN 40 MG/0.4 ML SQ SCH (09:00)
== END 2022-01-09 20:00 | disposition short-term general hospital (02) | DRG 544 ==
LOC: ER 12:59 → ERHOLD 16:39
PROVIDERS: ADMIT Internal Medicine; ATTEND Internal Medicine
DX: M48.56XA Collapsed vertebra, not elsewhere classified, lumbar region, initial encounter for fracture (principal); I10 Essential (primary) hypertension; E11.65 Type 2 diabetes mellitus with hyperglycemia; R79.89 Other specified abnormal findings of blood chemistry; Z20.822 Contact with and (suspected) exposure to COVID-19
CPT/HCPCS: 36415; 72131; 74176; 76377; 80048; 80053; 81003; 82947; 83036; 83690; 83735; 83880; 85025; 96365; 96366; 96375; 99285; J1815; J2270; J2405; J2930; J7030; U0003

== ENCOUNTER 2022-05-04 19:20 | Emergency (ER) | payer OTHER ==
--- OUTSIDE RECORDS SUMMARY | 2022-05-04 19:25 | XMS REPORT | Continuity of Care Document ---
:1960 Author Organization [facility] t Address [address] [place] [address] Dr. [address]. [address] [place] [address] Care Team Providers Name Role Phone Yosef GALLAGHER, [facility] Primary Care Physician [phone] SYED HIRSCH Attending Clinician Unavailable CARLO BROWN Attending Clinician Unavailable ELISABETH GATICA Attending Clinician Unavailable Ty Humphries MD Attending Clinician TY HUMPHRIES Attending Clinician Unavailable Ed Abraham MD Attending Clinician AMANDA ESPINOZA Admitting Clinician Unavailable Payers Payer Name Policy Type Policy Number Effective Date Expiration Date S ource [employer]IC [employer]CIAL [id number] 2021 00:00:00 MEDICAID ALIEN PENDING 2020 PENDING 00:00:00 Problems This patient has no known problems. Allergies, Adverse Reactions, Alerts Allergy Allergy Status Severity Reaction(s) Onset Inactive Treating Comm ents Source Name Type Date Date Clinician NO KNOWN Drug Active [facility] ALLERG Class ity of [facility] NO KNOWN Allergy Active [facility] Medications Ordered Filled Start Stop Current Ordering Indication Dosage Frequency Signature Comments Components Source Medication Medication Date Date Medication? Clinician (SIG) Name Name TAKE 2-0 No TABLET BY 6-15 MOUTH AT 00:00: BEDTIME 00 NEEDED Dose 2-0 No Unknown 6-15 00:00: 00 lisinopril 2-0 No 1mg 20 mg 5-26 tablet 00:00: 00 methocarbam 2-0 No 1mg ol 500 mg 5-26 tablet 00:00: 00 gabapentin 2-0 No 1mg 300 mg 5-26 capsule 00:00: 00 Dose 2-0 No Unknown 5-26 00:00: 00 Dose 2-0 No Unknown 5-26 00:00: 00 Dose 2-0 No Unknown 5-26 00:00: 00 Dose 2-0 No Unknown 5-26 00:00: 00 lisinopril 2-0 No 1mg 20 mg 3-05 tablet 00:00: 00 metformin 2-0 No 1mg 1,000 mg 3-05 tablet 00:00: 00 glipizide 2-0 No 1mg ER 5 mg 3-05 tablet, 00:00: extended 00 release 24 hr Dose 2-0 No Unknown 3-05 00:00: 00 Dose 2022-0 No Unknown 3-05 00:00: 00 Dose 2022-0 No Unknown 3-05 00:00: 00 Dose 2022-0 No Unknown 3-05 00:00: 00 Dose 2022-0 No Unknown 3-05 00:00: 00 Dose 2022-0 No Unknown 3-05 00:00: 00 Dose 2022-0 No Unknown 3-05 00:00: 00 Dose 2022-0 No Unknown 3-05 00:00: 00 Dose 2022-0 No Unknown 3-05 00:00: 00 Dose 2022-0 No Unknown 3-05 00:00: 00 Dose 2022-0 No Unknown 3-05 00:00: 00 triamcinolo 2020-0 No 1% ne 4-06 acetonide 00:00: 0.025 % 00 topical cream Dose 2020-0 No Unknown 4-06 00:00: 00 Dose 1-0 No Unknown 4-06 00:00: 00 metformin 2019-1 No 1mg 1,000 mg 0-06 tablet 00:00: 00 glipizide 2019-1 No 1mg ER 5 mg 0-01 tablet, 00:00: extended 00 release 24 hr glipizide 2020-0 No 1mg ER 5 mg 8-06 tablet, 00:00: extended 00 release 24 hr metformin 2020-0 No 1mg 1,000 mg 8-06 tablet 00:00: 00 azithromyci 2020-0 No mg n 250 mg 8-06 tablet 00:00: 00 gabapentin 2020-0 No 12mg 100 mg 8-06 capsule 00:00: 00 glipizide 2020-0 No 1mg ER 5 mg 5-28 tablet, 00:00: extended 00 release 24 hr metformin 2020-0 No 1mg 1,000 mg 5-28 tablet 00:00: 00 gabapentin 2020-0 No 12mg 100 mg 5-28 capsule 00:00: 00 glimepiride 2020-0 No 1mg 4 mg tablet 3-24 00:00: 00 metformin 2020-0 No 1mg 1,000 mg 3-24 tablet 00:00: 00 glimepiride 2019-1 No 1mg 4 mg tablet 1-30 00:00: 00 metformin 2019-1 No 1mg 1,000 mg 1-30 tablet 00:00: 00 glimepiride 2019-0 No 1mg 4 mg tablet 9-24 00:00: 00 glimepiride 2019-0 No 1mg 4 mg tablet 9-24 00:00: 00 metformin 2019-0 No 1mg 1,000 mg 9-24 tablet 00:00: 00 metformin 2019-0 No 1mg 1,000 mg 9-24 tablet 00:00: 00 gabapentin 2019-0 No 1mg 100 mg 9-24 capsule 00:00: 00 Immunizations Ordered Immunization Filled Immunization Date Status Commen ts Source Name Name Les COVID-19 2021-09-08 Completed Vaccine 00:00:00 Claribel COVID-19 2020-12-01 Completed Vaccine 00:00:00 Vital Signs Vital Name Observation Time Observation Value Comments Source HEIGHT 2022-01-10 00:00:00 152.4 cm WEIGHT 2022-01-10 00:00:00 53.842 kg HEIGHT 2022-01-10 00:00:00 152.4 cm WEIGHT 2022-01-10 00:00:00 53.842 kg BP Systolic 2022-04-28 14:18:00 195 mm[Hg] BP Diastolic 2022-04-28 14:18:00 88 mm[Hg] Weight Measured 2022-04-28 14:18:00 121.60 pounds Height Measured 2022-04-28 14:18:00 57.00 inches Body Temperature 2022-04-28 14:18:00 98.30 degrees Heart Rate 2022-04-28 14:18:00 90.00 /min Respiratory Rate 2022-04-28 14:18:00 18.00 /min Heart Rate 2022-02-04 15:17:00 Respiratory Rate 2022-02-04 15:17:00 BP Systolic 2022-02-04 15:17:00 BP Diastolic 2022-02-04 15:17:00 Weight Measured 2022-02-04 15:17:00 Height Measured 2022-02-04 15:17:00 Body Temperature 2022-02-04 15:17:00 BP Systolic 2021-11-14 14:37:00 170 mm[Hg] BP Diastolic 2021-11-14 14:37:00 74 mm[Hg] Weight Measured 2021-11-14 14:37:00 120.40 pounds Height Measured 2021-11-14 14:37:00 57.00 inches Body Temperature 2021-11-14 14:37:00 98.60 degrees Heart Rate 2021-11-14 14:37:00 97.00 /min Respiratory Rate 2021-11-14 14:37:00 16.00 /min BP Systolic 2020-12-16 09:32:00 162 mm[Hg] BP Diastolic 2020-12-16 09:32:00 76 mm[Hg] Weight Measured 2020-12-16 09:32:00 125.40 pounds Height Measured 2020-12-16 09:32:00 57.00 inches Body Temperature 2020-12-16 09:32:00 98.70 degrees Heart Rate 2020-12-16 09:32:00 78.00 /min Respiratory Rate 2020-12-16 09:32:00 16.00 /min BP Systolic 2020-02-07 16:53:00 171 mm[Hg] BP Diastolic 2020-02-07 16:53:00 84 mm[Hg] Weight Measured 2020-02-07 16:53:00 137.40 pounds Height Measured 2020-02-07 16:53:00 57.00 inches Body Temperature 2020-02-07 16:53:00 98.90 degrees Heart Rate 2020-02-07 16:53:00 92.00 /min Respiratory Rate 2020-02-07 16:53:00 16.00 /min BP Systolic 2019-09-15 13:30:00 151 mm[Hg] BP Diastolic 2019-09-15 13:30:00 84 mm[Hg] Weight Measured 2019-09-15 13:30:00 129.00 pounds Height Measured 2019-09-15 13:30:00 57.50 inches Body Temperature 2019-09-15 13:30:00 98.70 degrees Heart Rate 2019-09-15 13:30:00 95.00 /min Respiratory Rate 2019-09-15 13:30:00 16.00 /min BP Systolic 2019-08-11 14:43:00 156 mm[Hg] BP Diastolic 2019-08-11 14:43:00 80 mm[Hg] Weight Measured 2019-08-11 14:43:00 130.20 pounds Height Measured 2019-08-11 14:43:00 57.50 inches Body Temperature 2019-08-11 14:43:00 98.50 degrees Heart Rate 2019-08-11 14:43:00 88.00 /min Respiratory Rate 2019-08-11 14:43:00 16.00 /min BP Systolic 2019-08-11 14:07:00 156 mm[Hg] BP Diastolic 2019-08-11 14:07:00 80 mm[Hg] Weight Measured 2019-08-11 14:07:00 130.20 pounds Height Measured 2019-08-11 14:07:00 57.50 inches Body Temperature 2019-08-11 14:07:00 98.50 degrees Heart Rate 2019-08-11 14:07:00 88.00 /min Respiratory Rate 2019-08-11 14:07:00 16.00 /min BP Systolic 2019-06-05 10:38:00 134 mm[Hg] BP Diastolic 2019-06-05 10:38:00 57 mm[Hg] Weight Measured 2019-06-05 10:38:00 127.00 pounds Height Measured 2019-06-05 10:38:00 57.50 inches Body Temperature 2019-06-05 10:38:00 98.70 degrees Heart Rate 2019-06-05 10:38:00 78.00 /min Respiratory Rate 2019-06-05 10:38:00 16.00 /min Procedures This patient has no known procedures. Plan of Care Planned Activity Planned Date Details Comments Source Goal Plan of Care Note [code = 68469-0] Goal Plan of Care Note [code = 54577-2] Goal Plan of Care Note [code = 17813-7] Goal Plan of Care Note [code = 59453-3] Goal Plan of Care Note [code = 73921-4] Goal Plan of Care Note [code = 82058-9] Goal Plan of Care Note [code = 22228-0] Goal Plan of Care Note [code = 52967-6] Goal Plan of Care Note [code = 12475-5] Goal Plan of Care Note [code = 37794-1] Goal Plan of Care Note [code = 44184-5] Goal Plan of Care Note [code = 72037-6] Goal Plan of Care Note [code = 20863-2] Goal Plan of Care Note [code = 95559-4] Goal Plan of Care Note [code = 08514-8] Goal Plan of Care Note [code = 34667-5] Goal Plan of Care Note [code = 89513-0] Goal Plan of Care Note [code = 61963-4] Goal Plan of Care Note [code = 05449-8] Goal Plan of Care Note [code = 09129-4] Goal Plan of Care Note [code = 92145-2] Goal Plan of Care Note [code = 35132-4] Goal Plan of Care Note [code = 50890-1] Goal Plan of Care Note [code = 46711-5] Goal Plan of Care Note [code = 09770-3] Goal Plan of Care Note [code = 06894-7] Goal Plan of Care Note [code = 34347-8] Encounters Start End Encounter Admission Attending Care Care Encounter Source Date/Time Date/Time Type Type Clinicians Facility Department ID 2022-04-28 2022-04-28 Outpatient [id number] 00:00:00 00:00:00 Visit [id number] 2022-01-18 2022-01-18 Outpatient LETTY HIRSCH, [facility] [id number] [facility] [address] 00:00:00 00:00:00 [facility] 2022-01-09 2022-01-16 Inpatient ER CARLO BROWN [facility] Neurosurger [id number] [facility] 23:44:00 17:42:00 y 2020-03-25 2020-03-26 Emergency [facility] [id number] 21:50:30 03:12:00 Ty Briseno [id number] [place] [id number] [place] [id number] 082020-03-25 2020-03-25 Emergency [facility] ERT [id number] [facility] 21:50:30 21:50:30 [facility] 2020-03-21 2020-03-21 Emergency [facility] [id number] 11:51:42 14:34:00 Ed Briseno [id number] [place] 4.2.7.2.686 [place] [id number] 2020-03-21 2020-03-21 Emergency X [facility] ERT [id number] [facility] 11:40:00 11:40:00 [facility] Results Test Description Test Time Test Comments Results Result Comments Source HEMOGLOBIN A1c 2022-04-29 16:16:51 Test Item Value Reference Range Interpretation Comme nts HEMOGLOBIN A1c (test code = 12.4 % 4.2-5.6 H [employer] 15017) GUIDELINES FOR HGB A1C: PREDIABETES/INC REASED RISK . . . . . . . 5.7-6.4% DIAG NOSIS OF DIABETES . . . . . . . . . >=6 .5% WITH CONFIRMATION OR APPROPRIATE SYM PTOMS NOTE: ASSAY MAY BE AFFECTED BY HEM OGLOBINOPATHIES (SICKLE CELL ANEMIA, S- C DISEASE, OTHERS) OR ARTIFICIALLY LO WERED BY DECREASED RED CELL SURVIVAL ( HEMOLYTIC ANEMIAS, BLOOD LOSS, ETC.). CO NSIDER ALTERNATE TESTING OR LABORATORY C ONSULTATION. CBC W/AUTO DIFF WITH [id number] 04:05:31 Test Item Value Reference Range Interpretation Comments WBC (test code = 8.8 K/UL 3.5-11.0 1001) RBC (test code = 4.36 M/UL 3.80-5.40 1002) HEMOGLOBIN (test code 13.1 G/DL 11.5-15.5 = 1003) HEMATOCRIT (test code 37.9 % 34.0-45.0 = 1004) MCV (test code = 86.9 fL 80.0-99.0 1005) MCH (test code = 30.0 PG 25.0-33.0 1006) MCHC (test code = 34.6 G/DL 31.0-36.0 1007) RDW (test code = 11.6 % 11.5-15.0 1038) NEUTROPHILS (test 64.7 % code = 1008) LYMPHOCYTES (test 25.7 % code = 1010) MONOCYTES (test code 6.4 % = 1011) EOSINOPHILS (test 2.3 % code = 1012) BASOPHILS (test code 0.6 % = 1013) IMMATURE GRANULOCYTES 0.3 % (test code = 1036) NUCLEATED RBCS (test 0.0 /100 WBC'S See_Comment [Aut omated code = 1065) message] The sy stem which generated this result transmitted reference range : 0.0. The refere nce range was not u sed to interpret th is result as normal/abnormal . PLATELET COUNT (test 234 K/UL 130-400 code = 1015) ABSOLUTE NEUTROPHILS 5.70 K/UL 1.50-7.50 (test code = 1066) ABSOLUTE LYMPHOCYTES 2.26 K/UL 1.00-4.00 (test code = 1067) ABSOLUTE MONOCYTES 0.56 K/UL 0.20-1.00 (test code = 1068) ABSOLUTE EOSINOPHILS 0.20 K/UL 0.00-0.50 (test code = 1040) ABSOLUTE BASOPHILS 0.05 K/UL 0.00-0.20 (test code = 1069) ABS IMMATURE 0.03 K/UL 0.00-0.10 GRANULOCYTES (test code = 1020) ABS NUCLEATED RBCS 0.00 K/UL 0.00-0.11 (test code = 91299) [id number] 03:52:49 Test Item Value Reference Range Interpretation Comments RPR RESULT (test code = NON-REACTIVE NON-REACTIVE 3501) RPR TITER (test code = 3500) NOT INDIC. TITER NOT INDIC. VITAMIN [id number] 03:35:15 Test Item Value Reference Range Interpretation Comments VITAMIN B-12 (test >2000 PG/ML 200-950 H UNLESS O THERWISE code = 2840) INDICATED, ALL TESTING PERFORMED [facility], [facility]. [address] [place] [address] 4 LABORATORY DIRE CTOR: LETICIA SALGADO M.D. CLIA NUMBER [id number] [id number] POCT-GLUCOSE [id number] 17:39:03 Test Item Value Reference Range Interpretation Comments POC-GLUCOSE METER 94 mg/dL 70-110 : TESTED A T [facility] [address] (BEAKER) (test code = [facility], 1538) [place] [address] 384: Media Supervisor/Techni vic ID = [id number] for Eliz Jassoa POCT-GLUCOSE [id number] 11:39:17 Test Item Value Reference Range Interpretation Comments POC-GLUCOSE METER 196 mg/dL 70-110 H : TESTED A T [facility] [address] (BEAKER) (test code [facility] THE, = 1538) [place] [address] 384: Media Supervisor/Techni vic ID = [id number] for Eliz Jassoa POCT-GLUCOSE [id number] 06:44:27 Test Item Value Reference Range Interpretation Comments POC-GLUCOSE METER 181 mg/dL 70-110 H : TESTED A T [facility] [address] (BEAKER) (test code [facility] THE, = 1538) [place] [address] 384: Media Supervisor/Techni vci ID = [id number] for Ely Lee POCT-GLUCOSE [id number] 19:50:00 Test Item Value Reference Range Interpretation Comments POC-GLUCOSE METER 209 mg/dL 70-110 H : TESTED A T [facility] [address] (BEAKER) (test code [facility] [address] THE, = 1538) [place] [address] 384: Media Supervisor/Techni vic ID = [id number] for Keyanna Dominique palmer POCT-GLUCOSE [id number] 16:48:29 Test Item Value Reference Range Interpretation Comments POC-GLUCOSE METER 112 mg/dL 70-110 H : TESTED A T [facility] [address] (BEAKER) (test code [facility] [address] [address], = 1538) [place] [address] 384: Media Supervisor/Techni vic ID = [id number] for Tiffanie Ramirez POCT-GLUCOSE [id number] 12:32:44 Test Item Value Reference Range Interpretation Comments POC-GLUCOSE METER 152 mg/dL 70-110 H : TESTED A T [facility] [address] (BEAKER) (test code [facility] [address] [address], = 1538) [place] [address] 384: Media Supervisor/Techni vic ID = [id number] for Tiffanie Ramirez BLOOD [id number] 07:00:50 Test Item Value Reference Range Interpretation Comments CULTURE (BEAKER) (test No growth in 5 days code = 1095) BLOOD [id number] 07:00:49 Test Item Value Reference Range Interpretation Comments CULTURE (BEAKER) (test No growth in 5 days code = 1095) POCT-GLUCOSE [id number] 06:35:32 Test Item Value Reference Range Interpretation Comments POC-GLUCOSE METER 264 mg/dL 70-110 H : TESTED A T [facility] [address] (BEAKER) (test code [facility] [address], = 1538) [place] [address] 384: Media Supervisor/Techni vic ID = [id number] for I sidore, Tracy POCT-GLUCOSE [id number] 20:25:00 Test Item Value Reference Range Interpretation Comments POC-GLUCOSE METER 160 mg/dL 70-110 H : TESTED A T [facility] [address] (BEAKER) (test code [facility] [address] [address], = 1538) [place] [address] 384: Media Supervisor/Techni vic ID = [id number] for I sidore, Tracy POCT-GLUCOSE [id number] 17:45:59 Test Item Value Reference Range Interpretation Comments POC-GLUCOSE METER 212 mg/dL 70-110 H : TESTED A T [facility] [address]359 (BEAKER) (test code [facility] [address] [address], = 1538) [place] [address] 384: Media Supervisor/Techni vic ID = [id number] for Justin Ramirez POCT-GLUCOSE [id number] 12:14:45 Test Item Value Reference Range Interpretation Comments POC-GLUCOSE METER 266 mg/dL 70-110 H : TESTED A T [facility] [address] (BEAKER) (test code [facility] [address], = 1538) [place] [address] 384: Media Supervisor/Techni vic ID = [id number] for Kendrick Wagoner POCT-GLUCOSE [id number] 07:17:34 Test Item Value Reference Range Interpretation Comments POC-GLUCOSE METER 285 mg/dL 70-110 H : TESTED A T [facility] [address] (BEAKER) (test code [facility] [address] [address], = 1538) [place] [address] 384: Media Supervisor/Techni vic ID = [id number] for Sharan Pearl POCT-GLUCOSE [id number] 19:54:25 Test Item Value Reference Range Interpretation Comments POC-GLUCOSE METER 136 mg/dL 70-110 H : TESTED A T [facility] [address] (BEAKER) (test code [facility] [address] [address] [facility], = 1538) [place] [address] 384: Media Supervisor/Techni vic ID = [id number] for Leonard Pearllly POCT-GLUCOSE [id number] 15:49:11 Test Item Value Reference Range Interpretation Comments POC-GLUCOSE METER 253 mg/dL 70-110 H : TESTED A T [facility] [address] (BEAKER) (test code [facility] [address], = 1538) [place] [address] 384: Media Supervisor/Techni vic ID = [id number] for C ostello, Toan POCT-GLUCOSE [id number] 11:44:44 Test Item Value Reference Range Interpretation Comments POC-GLUCOSE METER 177 mg/dL 70-110 H : TESTED A T [facility] 677[address] (BEAKER) (test code [facility] [address] [address] [facility], = 1538) [place] [address] 384: Media Supervisor/Techni vic ID = [id number] for C ostello, Toan POCT-GLUCOSE [id number] 05:50:52 Test Item Value Reference Range Interpretation Comments POC-GLUCOSE METER 283 mg/dL 70-110 H : TESTED A T [facility] 15[address] (BEAKER) (test code [facility] [address] [address], = 1538) [place] [address] 384: Media Supervisor/Techni vic ID = [id number] for S Geo burkett [id number] 05:20:35 Test Item Value Reference Range Interpretation Comments PHOSPHORUS (BEAKER) (test code = 3.1 mg/dL 2.5-4.5 604) Media Supervisor ID - [id number] METABOLIC [id number] 05:20:34 Test Item Value Reference Range Interpretation Comments SODIUM (BEAKER) 134 meq/L 135-148 L (test code = 381) POTASSIUM (BEAKER) 4.2 meq/L 3.5-5.5 (test code = 379) CHLORIDE (BEAKER) 98 meq/L 98-106 (test code = 382) CO2 (BEAKER) (test 25 meq/L 20-31 code = 355) BLOOD UREA NITROGEN 17 mg/dL 10-26 (BEAKER) (test code = 354) CREATININE (BEAKER) 0.88 mg/dL 0.50-1.20 (test code = 358) GLUCOSE RANDOM 357 mg/dL 70-110 H (BEAKER) (test code = 652) CALCIUM (BEAKER) 8.4 mg/dL 8.5-10.5 L (test code = 697) EGFR (BEAKER) (test 66 mL/min/1.73 ESTIMA FRANCES GFR IS code = 1092) sq m NOT ACCURATE CREATININE CLEARANCE IN PREDICTING GLOMERULAR FILTRATION RATE . ESTIMATED GFR I S NOT APPLICABLE FOR DIALYSIS PATIEN TS. Media Supervisor ID - [id number] 05:20:34 Test Item Value Reference Range Interpretation Comments MAGNESIUM (BEAKER) (test code = 1.6 mg/dL 1.5-3.0 627) Media Supervisor ID - [id number] W/PLT COUNT & AUTO [id number] 04:42:02 Test Item Value Reference Range Interpretation Comments WHITE BLOOD CELL COUNT (BEAKER) 7.7 K/ L 4.0-10.0 (test code = 775) RED BLOOD CELL COUNT (BEAKER) 3.68 M/ L 4.00-5.00 L (test code = 761) HEMOGLOBIN (BEAKER) (test code = 11.2 GM/DL 12.0-15.5 L 410) HEMATOCRIT (BEAKER) (test code = 34.1 % 36.0-46.0 L 411) MEAN CORPUSCULAR VOLUME (BEAKER) 92.7 fL 82.0-99.0 (test code = 753) MEAN CORPUSCULAR HEMOGLOBIN 30.4 pg 27.0-33.0 (BEAKER) (test code = 751) MEAN CORPUSCULAR HEMOGLOBIN CONC 32.8 GM/DL 32.0-36.0 (BEAKER) (test code = 752) RED CELL DISTRIBUTION WIDTH 12.3 % 12.0-15.0 (BEAKER) (test code = 412) PLATELET COUNT (BEAKER) (test 241 K/CU MM 150-430 code = 756) MEAN PLATELET VOLUME (BEAKER) 10.9 fL 6.0-11.5 (test code = 754) NUCLEATED RED BLOOD CELLS 0 /100 WBC 0-0 (BEAKER) (test code = 413) NEUTROPHILS RELATIVE PERCENT 54 % (BEAKER) (test code = 429) LYMPHOCYTES RELATIVE PERCENT 35 % (BEAKER) (test code = 430) MONOCYTES RELATIVE PERCENT 9 % (BEAKER) (test code = 431) EOSINOPHILS RELATIVE PERCENT 2 % (BEAKER) (test code = 432) BASOPHILS RELATIVE PERCENT 0 % (BEAKER) (test code = 437) NEUTROPHILS ABSOLUTE COUNT 4.14 K/ L 1.80-8.00 (BEAKER) (test code = 670) LYMPHOCYTES ABSOLUTE COUNT 2.70 K/ L 1.48-4.50 (BEAKER) (test code = 414) MONOCYTES ABSOLUTE COUNT (BEAKER) 0.67 K/ L 0.00-1.30 (test code = 415) EOSINOPHILS ABSOLUTE COUNT 0.13 K/ L 0.00-0.50 (BEAKER) (test code = 416) BASOPHILS ABSOLUTE COUNT (BEAKER) 0.01 K/ L 0.00-0.20 (test code = 417) IMMATURE GRANULOCYTES-RELATIVE 0 % 0-0 PERCENT (BEAKER) (test code = 2801) POCT-GLUCOSE [id number] 20:59:18 Test Item Value Reference Range Interpretation Comments POC-GLUCOSE METER 224 mg/dL 70-110 H : TESTED A T [facility] [address] (BEAKER) (test code [facility], = 1538) [place] [address] 384: Media Supervisor/Techni vci ID = [id number] for Christian burkettJossyon POCT-GLUCOSE [id number] 16:29:38 Test Item Value Reference Range Interpretation Comments POC-GLUCOSE METER 209 mg/dL 70-110 H : TESTED A T [facility] [address] (BEAKER) (test code [facility] [address], = 1538) [place] [address] 384: Media Supervisor/Techni vic ID = [id number] for Juliet Jasso POCT-GLUCOSE [id number] 11:24:02 Test Item Value Reference Range Interpretation Comments POC-GLUCOSE METER 190 mg/dL 70-110 H : TESTED A T [facility] [address] (BEAKER) (test code [facility] [address] [address] [facility], = 1538) [place] [address] 384: Media Supervisor/Techni vic ID = [id number] for Juliet Jasso POCT-GLUCOSE [id number] 06:13:13 Test Item Value Reference Range Interpretation Comments POC-GLUCOSE METER 336 mg/dL 70-110 H : TESTED A T [facility] [address] (BEAKER) (test code [facility] [address] [facility], = 1538) [place] [address] 384: Media Supervisor/Techni vic ID = [id number] for Geo Bazan [id number] 04:33:43 Test Item Value Reference Range Interpretation Comments MAGNESIUM (BEAKER) (test code = 1.7 mg/dL 1.5-3.0 627) Media Supervisor ID - [id number] 04:33:43 Test Item Value Reference Range Interpretation Comments PHOSPHORUS (BEAKER) (test code = 3.1 mg/dL 2.5-4.5 604) Media Supervisor ID - ADMINBASIC METABOLIC [id number] 04:33:42 Test Item Value Reference Range Interpretation Comments SODIUM (BEAKER) 132 meq/L 135-148 L (test code = 381) POTASSIUM (BEAKER) 4.4 meq/L 3.5-5.5 (test code = 379) CHLORIDE (BEAKER) 97 meq/L 98-106 L (test code = 382) CO2 (BEAKER) (test 26 meq/L 20-31 code = 355) BLOOD UREA NITROGEN 20 mg/dL 10-26 (BEAKER) (test code = 354) CREATININE (BEAKER) 0.84 mg/dL 0.50-1.20 (test code = 358) GLUCOSE RANDOM 304 mg/dL 70-110 H (BEAKER) (test code = 652) CALCIUM (BEAKER) 8.3 mg/dL 8.5-10.5 L (test code = 697) EGFR (BEAKER) (test 69 mL/min/1.73 ESTIMA FRANCES GFR IS code = 1092) sq m NOT ACCURATE CREATININE CLEARANCE IN PREDICTING GLOMERULAR FILTRATION RATE . ESTIMATED GFR I S NOT APPLICABLE FOR DIALYSIS PATIEN TS. Media Supervisor ID - ADMINCBC W/PLT COUNT & AUTO [id number] 03:59:44 Test Item Value Reference Range Interpretation Comments WHITE BLOOD CELL COUNT (BEAKER) 9.8 K/ L 4.0-10.0 (test code = 775) RED BLOOD CELL COUNT (BEAKER) 3.68 M/ L 4.00-5.00 L (test code = 761) HEMOGLOBIN (BEAKER) (test code = 11.1 GM/DL 12.0-15.5 L 410) HEMATOCRIT (BEAKER) (test code = 34.1 % 36.0-46.0 L 411) MEAN CORPUSCULAR VOLUME (BEAKER) 92.7 fL 82.0-99.0 (test code = 753) MEAN CORPUSCULAR HEMOGLOBIN 30.2 pg 27.0-33.0 (BEAKER) (test code = 751) MEAN CORPUSCULAR HEMOGLOBIN CONC 32.6 GM/DL 32.0-36.0 (BEAKER) (test code = 752) RED CELL DISTRIBUTION WIDTH 12.3 % 12.0-15.0 (BEAKER) (test code = 412) PLATELET COUNT (BEAKER) (test 247 K/CU MM 150-430 code = 756) MEAN PLATELET VOLUME (BEAKER) 10.6 fL 6.0-11.5 (test code = 754) NUCLEATED RED BLOOD CELLS 0 /100 WBC 0-0 (BEAKER) (test code = 413) NEUTROPHILS RELATIVE PERCENT 61 % (BEAKER) (test code = 429) LYMPHOCYTES RELATIVE PERCENT 28 % (BEAKER) (test code = 430) MONOCYTES RELATIVE PERCENT 8 % (BEAKER) (test code = 431) EOSINOPHILS RELATIVE PERCENT 2 % (BEAKER) (test code = 432) BASOPHILS RELATIVE PERCENT 0 % (BEAKER) (test code = 437) NEUTROPHILS ABSOLUTE COUNT 5.93 K/ L 1.80-8.00 (BEAKER) (test code = 670) LYMPHOCYTES ABSOLUTE COUNT 2.77 K/ L 1.48-4.50 (BEAKER) (test code = 414) MONOCYTES ABSOLUTE COUNT (BEAKER) 0.82 K/ L 0.00-1.30 (test code = 415) EOSINOPHILS ABSOLUTE COUNT 0.17 K/ L 0.00-0.50 (BEAKER) (test code = 416) BASOPHILS ABSOLUTE COUNT (BEAKER) 0.03 K/ L 0.00-0.20 (test code = 417) IMMATURE GRANULOCYTES-RELATIVE 0 % 0-0 PERCENT (BEAKER) (test code = 2801) POCT-GLUCOSE [id number] 21:50:26 Test Item Value Reference Range Interpretation Comments POC-GLUCOSE METER 343 mg/dL 70-110 H : [place] [address] (BEAKER) (test code [facility], = 1538) [place] [id number] 384: Media Supervisor/Techni vic ID = [id number] for Geo Bazan MR, SPINE, LUMBAR, [id number] 19:21:00Unlisted Reason for Exam - Click Yes and Enter Reason Below->No [facility] CENTERName: GEREMIAS GARCIA : 1960 Sex: FFINAL REPORT MR, SPINE, LUMBAR, WITH \T\ WITHOUT CONTRAST INDICATION: Back pain or radiculopathy, > 6 wks COMPARISON: None TECHNIQUE: Multiplanar, multisequence MR images ofthe lumbar spine without contrast. FINDINGS: 5 nonrib- bearing lumbar-type vertebral bodies are present. Alignment of the lumbar spine is within normal limits. Recent mild superior endplate fracture of L5 with persistent marrow edema and 15% loss of superior endplate height. Mild retropulsion without impingement of the cauda equina. There are enhancement is also suggestive of recent fracture.Edema andconcomitant enhancement of the T12 superior endplate, presumed degenerative.Multilevel disc space height loss is present, most conspicuous at L4-L5 and L5-S1.Conus terminates at L1.Cauda equina demonstrates normal appearance.No acute findings in the paraspinal soft tissues. Evaluation of the individual levels demonstrates: L1/L2: No significant canal or foraminal narrowing.L2/L3: No significant canalor foraminal narrowing.L3/L4: Mild disc bulge. Ligamentum flavum thickening. Bilateral facet arthropathy and hypertrophy. Mild bilateral foraminal stenosis. No significant spinal canal narrowing.L4/L5:Broad-based disc bulge with tiny superimposed central disc extrusion. Ligamentum flavum thickening. Bilateral facet arthropathy and hypertrophy. Mild versus moderate spinal canal narrowing. Severe bilateral foraminal stenosis with impingement of the exiting L4 nerve roots.L5/S1: Broad- based disc bulge. Ligamentum flavum thickening. Bilateral facet arthropathy and hypertrophy. Moderate bilateral foraminal stenosis with impingement of the exiting L5 nerve roots. No significant spinal canal narrowing. I MPRESSION:1.Recent mild superior endplate fracture of L5 with persistent marrow edema and 15% loss of superior endplate height. Mild retropulsion without impingement of the cauda equina.2.Multilevel degenerative changes of the lumbar spine, most prominent at L4-L5 and L5-S1 as per above. Signed: Felicia Foster MDReport Verified Date/Time: 01/11/2022 19:21:53 POCT-GLUCOSE [id number] 17:39:53 Test Item Value Reference Range Interpretation Comments POC-GLUCOSE METER 219 mg/dL 70-110 H : TESTED A T [facility] [address] (BEAKER) (test code [facility] [address] [facility], = 1538) [place] [address] 384: Media Supervisor/Techni vic ID = [id number] for Thomas aguirreJuliet, KNEE, 1 OR 2 VIEWS, [id number] 13:02:00Reason for exam:->fallShould this be performed at the bedside?->Yes [facility] 1960 Sex: FFINAL REPORT Left knee 2 views History provided: Fall, knee pain No bony or joint abnormality is evident. Signed: Jason Venutra Verified Date/Time: 01/11/2022 13:02:27Reading Location: [facility] Radiology Reading Room RAD, HIP, 2-3 VIEWS, LEFT, TO INCL PELVIS WHEN [id number] 13:01:00Reason for exam:- >fall Should this be performed at the bedside?->Yes [facility] : 1960 Sex: FFINAL REPORT Left hip History provided: Fall, hip pain No bony or joint abnormality is evident. Signed: Jason Ventura Verified Date/Time: 01/11/2022 13:01:15 Reading Location: [facility] Radiology Reading Room POCT-GLUCOSE [id number] 11:33:32 Test Item Value Reference Range Interpretation Comments POC-GLUCOSE METER 367 mg/dL 70-110 H : TESTED A T [facility] [address] (BEAKER) (test code [facility] [address] [facility], = 1538) [place] [address] 384: Media Supervisor/Techni vic ID = [id number] for Juliet Jasso POCT-GLUCOSE [id number] 06:14:39 Test Item Value Reference Range Interpretation Comments POC-GLUCOSE METER 135 mg/dL 70-110 H : TESTED A T [facility] [address] (BEAKER) (test code [facility] [address] [facility], = 1538) [place] [address] 384: Media Supervisor/Techni vic ID = [id number] for Tracy Lewis BASIC METABOLIC [id number] 04:33:18 Test Item Value Reference Range Interpretation Comments SODIUM (BEAKER) (test 135 meq/L 135-148 code = 381) POTASSIUM (BEAKER) 4.3 meq/L 3.5-5.5 (test code = 379) CHLORIDE (BEAKER) 101 meq/L 98-106 (test code = 382) CO2 (BEAKER) (test 24 meq/L 20-31 code = 355) BLOOD UREA NITROGEN 13 mg/dL 10-26 (BEAKER) (test code = 354) CREATININE (BEAKER) 0.91 mg/dL 0.50-1.20 (test code = 358) GLUCOSE RANDOM 165 mg/dL 70-110 H (BEAKER) (test code = 652) CALCIUM (BEAKER) 8.3 mg/dL 8.5-10.5 L (test code = 697) EGFR (BEAKER) (test INSUFFIC IENT CLINICAL code = 1092) DATA TO CALCULA TE ESTIMATED GFR. Media Supervisor ID - [id number] 04:31:48 Test Item Value Reference Range Interpretation Comments MAGNESIUM (BEAKER) (test code = 2.0 mg/dL 1.5-3.0 627) Media Supervisor ID - [id number] 04:31:48 Test Item Value Reference Range Interpretation Comments PHOSPHORUS (BEAKER) (test code = 2.8 mg/dL 2.5-4.5 604) Media Supervisor ID - [id number] W/PLT COUNT & AUTO [id number] 04:00:33 Test Item Value Reference Range Interpretation Comments WHITE BLOOD CELL COUNT (BEAKER) 9.7 K/ L 4.0-10.0 (test code = 775) RED BLOOD CELL COUNT (BEAKER) 3.83 M/ L 4.00-5.00 L (test code = 761) HEMOGLOBIN (BEAKER) (test code = 11.9 GM/DL 12.0-15.5 L 410) HEMATOCRIT (BEAKER) (test code = 35.2 % 36.0-46.0 L 411) MEAN CORPUSCULAR VOLUME (BEAKER) 91.9 fL 82.0-99.0 (test code = 753) MEAN CORPUSCULAR HEMOGLOBIN 31.1 pg 27.0-33.0 (BEAKER) (test code = 751) MEAN CORPUSCULAR HEMOGLOBIN CONC 33.8 GM/DL 32.0-36.0 (BEAKER) (test code = 752) RED CELL DISTRIBUTION WIDTH 12.6 % 12.0-15.0 (BEAKER) (test code = 412) PLATELET COUNT (BEAKER) (test 277 K/CU MM 150-430 code = 756) MEAN PLATELET VOLUME (BEAKER) 10.9 fL 6.0-11.5 (test code = 754) NUCLEATED RED BLOOD CELLS 0 /100 WBC 0-0 (BEAKER) (test code = 413) NEUTROPHILS RELATIVE PERCENT 60 % (BEAKER) (test code = 429) LYMPHOCYTES RELATIVE PERCENT 31 % (BEAKER) (test code = 430) MONOCYTES RELATIVE PERCENT 7 % (BEAKER) (test code = 431) EOSINOPHILS RELATIVE PERCENT 1 % (BEAKER) (test code = 432) BASOPHILS RELATIVE PERCENT 0 % (BEAKER) (test code = 437) NEUTROPHILS ABSOLUTE COUNT 5.81 K/ L 1.80-8.00 (BEAKER) (test code = 670) LYMPHOCYTES ABSOLUTE COUNT 3.03 K/ L 1.48-4.50 (BEAKER) (test code = 414) MONOCYTES ABSOLUTE COUNT (BEAKER) 0.63 K/ L 0.00-1.30 (test code = 415) EOSINOPHILS ABSOLUTE COUNT 0.13 K/ L 0.00-0.50 (BEAKER) (test code = 416) BASOPHILS ABSOLUTE COUNT (BEAKER) 0.02 K/ L 0.00-0.20 (test code = 417) IMMATURE GRANULOCYTES-RELATIVE 0 % 0-0 PERCENT (BEAKER) (test code = 2801) POCT-GLUCOSE [id number] 01:49:41 Test Item Value Reference Range Interpretation Comments POC-GLUCOSE METER 350 mg/dL 70-110 H : TESTED A T [facility] [address] (BEAKER) (test code [facility], = 1538) [place] [address] 384: Media Supervisor/Techni vic ID = [id number] for I swapnil Tracy POCT-GLUCOSE [id number] 00:37:23 Test Item Value Reference Range Interpretation Comments POC-GLUCOSE METER 396 mg/dL 70-110 H : Notified RN/MD: TESTED (BEAKER) ([place] [address] [facility] = 1538) [facility] [address]: Media Supervisor/Techni vic ID = [id number] for I swapnil Tracy POCT-GLUCOSE [id number] 22:03:51 Test Item Value Reference Range Interpretation Comments POC-GLUCOSE METER 378 mg/dL 70-110 H : TESTED A T [facility] [address] (BEAKER) (test code [facility], = 1538) [place] [address] 384: Media Supervisor/Techni vic ID = [id number] for N Vero hartley POCT-GLUCOSE [id number] 20:37:08 Test Item Value Reference Range Interpretation Comments POC-GLUCOSE METER 211 mg/dL 70-110 H : TESTED A T [facility] [address] (BEAKER) (test code [facility], = 1538) [place] [address] 384: Media Supervisor/Techni vic ID = [id number] for Leticai Villarreal BASIC METABOLIC [id number] 18:10:22 Test Item Value Reference Range Interpretation Comments SODIUM (BEAKER) (test 137 meq/L 135-148 code = 381) POTASSIUM (BEAKER) 4.5 meq/L 3.5-5.5 Specimen slightly (test code = 379) hemolyzed CHLORIDE (BEAKER) 107 meq/L 98-106 H (test code = 382) CO2 (BEAKER) (test 20 meq/L 20-31 code = 355) BLOOD UREA NITROGEN 8 mg/dL 10-26 L (BEAKER) (test code = 354) CREATININE (BEAKER) 0.64 mg/dL 0.50-1.20 Specimen slightly (test code = 358) hemolyzed GLUCOSE RANDOM 93 mg/dL 70-110 (BEAKER) (test code = 652) CALCIUM (BEAKER) 8.2 mg/dL 8.5-10.5 L Discordant result (test code = 697) compared t o previous result. Clinica l correlation req uired. EGFR (BEAKER) (test INSUFFIC IENT CLINICAL code = 1092) DATA TO CALCULA TE ESTIMATED GFR. Media Supervisor ID - [id number] 17:59:07 Test Item Value Reference Range Interpretation Comments POC-GLUCOSE METER 77 mg/dL 70-110 : TESTED A T [facility] [address] (BEAKER) (test code = [facility], 153) [place] [address] 384: Media Supervisor/Techni vic ID = [id number] for Lord Syed Royal [id number] 17:03:10 Test Item Value Reference Range Interpretation Comments PHOSPHORUS (BEAKER) 2.4 mg/dL 2.5-4.5 L Specimen slightly (test code = 604) hemolyzed Media Supervisor ID - [id number] 17:03:09 Test Item Value Reference Range Interpretation Comments MAGNESIUM (BEAKER) 2.6 mg/dL 1.5-3.0 Specimen slightly (test code = 627) hemolyzed Media Supervisor ID - [id number] 16:36:43 Test Item Value Reference Range Interpretation Comments POC-GLUCOSE METER 74 mg/dL 70-110 : TESTED A T [facility] [address] (BEAKER) (test code = [facility], 153) [place] [address] 384: Media Supervisor/Techni vic ID = [id number] for Lord Syed Royal CALCIUM, [id number] 16:32:38 Test Item Value Reference Range Interpretation Comments CALCIUM IONIZED (BEAKER) (test 1.14 mmol/L 1.12-1.27 code = 698) PH, BLOOD (BEAKER) (test code = 7.48 1810) POCT-GLUCOSE [id number] 15:27:29 Test Item Value Reference Range Interpretation Comments POC-GLUCOSE METER 79 mg/dL 70-110 : TESTED A T [facility] [address] (BEAKER) (test code = [facility], 1538) [place] [address] 384: Media Supervisor/Techni vic ID = [id number] for Lord Syed Royal POCT-GLUCOSE [id number] 13:58:51 Test Item Value Reference Range Interpretation Comments POC-GLUCOSE METER 132 mg/dL 70-110 H : TESTED A T [facility] [address] (BEAKER) (test [facility], = 1538) [place] [address] 384: Media Supervisor/Techni vic ID = [id number] for Lord Syed Royal POCT-GLUCOSE [id number] 12:54:59 Test Item Value Reference Range Interpretation Comments POC-GLUCOSE METER 88 mg/dL 70-110 : TESTED A T [facility] [address] (BEAKER) (test code = [facility], 1538) [place] [address] 384: Media Supervisor/Techni vic ID = [id number] for Lord Syed Royal BASIC METABOLIC [id number] 12:11:39 Test Item Value Reference Range Interpretation Comments SODIUM (BEAKER) (test 141 meq/L 135-148 code = 381) POTASSIUM (BEAKER) 2.6 meq/L 3.5-5.5 LL (test code = 379) CHLORIDE (BEAKER) 118 meq/L 98-106 H (test code = 382) CO2 (BEAKER) (test 16 meq/L 20-31 L code = 355) BLOOD UREA NITROGEN 7 mg/dL 10-26 L (BEAKER) (test code = 354) CREATININE (BEAKER) 0.45 mg/dL 0.50-1.20 L (test code = 358) GLUCOSE RANDOM 164 mg/dL 70-110 H (BEAKER) (test code = 652) CALCIUM (BEAKER) 5.2 mg/dL 8.5-10.5 LL Discordant result (test code = 697) compared t o previous result. Clinica l correlation req uired. EGFR (BEAKER) (test INSUFFIC IENT CLINICAL code = 1092) DATA TO CALCULA TE ESTIMATED GFR. Media Supervisor ID - [id number] 12:11:23 Test Item Value Reference Range Interpretation Comments PHOSPHORUS (BEAKER) (test code = 1.2 mg/dL 2.5-4.5 LL 604) Media Supervisor ID - [id number] 12:09:23 Test Item Value Reference Range Interpretation Comments MAGNESIUM (BEAKER) (test code = 1.3 mg/dL 1.5-3.0 L 627) Media Supervisor ID - [id number] 10:42:28 Test Item Value Reference Range Interpretation Comments POC-GLUCOSE METER 295 mg/dL 70-110 H : TESTED A T [facility] [address] (BEAKER) (test code [facility] [address] [facility], = 1538) [place] [address] 384: Media Supervisor/Techni vic ID = [id number] for Lord Syed Royal POCT-GLUCOSE [id number] 09:27:48 Test Item Value Reference Range Interpretation Comments POC-GLUCOSE METER 226 mg/dL 70-110 H : TESTED A T [facility] [address] (BEAKER) (test code [facility] [address] [facility], = 1538) [place] [address] 384: Media Supervisor/Techni vic ID = [id number] for Lord Syed Royal POCT-GLUCOSE [id number] 07:47:33 Test Item Value Reference Range Interpretation Comments POC-GLUCOSE METER 232 mg/dL 70-110 H : TESTED A T [facility] [address] (BEAKER) (test code [facility], = 1538) [place] [address] 384: Media Supervisor/Techni vic ID = [id number] for Lord Syed Royal VITAMIN D, [id number] 07:23:56 Test Item Value Reference Range Interpretation Comments VITAMIN D 25-OH (BEAKER) (test 25.1 ng/mL 6.6-49.9 code = 2764) Effective 06/22/2017: Reference Range ChangeNew: 6.6-49.9 ng/mL Previous: 13.0- 47.8 ng/mLRecommendedVitamin D Target Range: 30.0-40.0 ng/mLOperator ID - DB [id number] 06:55:53 Test Item Value Reference Range Interpretation Comments PROCALCITONIN (BEAKER) (test code = < ng/mL <0.05 3036) SEPSIS RISK (ng/mL)Low: 0.05-0.50Intermediate: 0.51-2.00High: >=2.01RAPID DRUG SCREEN, [id number] 06:49:49 Test Item Value Reference Range Interpretation Comments BARBITURATE URINE Negative Negative (BEAKER) (test code = 725) BENZODIAZEPINE SCREEN Negative Negative URINE (BEAKER) (test code = 726) COCAINE (METAB.) SCREEN Negative Negative (BEAKER) (test code = 1164) METHADONE SCREEN (BEAKER) Negative Negative (test code = 1436) OPIATE SCREEN URINE Positive Negative A (BEAKER) (test code = 734) CANNABINOID SCREEN URINE Negative Negative (BEAKER) (test code = 727) AMPH/METHAMPH SCREEN Negative Negative (BEAKER) (test code = 1438) PHENCYCLIDINE SCREEN Negative Negative URINE (BEAKER) (test code = 608) PH UA (BEAKER) (test code 6.0 5.0-8.0 pH performed by WDL = 467) IRIS method DRUG CUTOFF CONC.Cocaine 300 ng/mL Cannabinoid 50 ng/mLBenzodiazepine 200 ng/mLBarbiturate 200 ng/mLPhencyclidine 25 ng/mLOpiate 300 ng/mLMethadone 300 ng/mLAmphetamine/ 1000 ng/mL MethamphetamineThis assay provides an unconfirmed qualitative test result for the clinical management of patients in emergency situations. Chain of custody not maintained. Some mtmu-qdk-zqsupzq medications, as well as adulterants, may cause inaccurate results. Clinical correlation should be applied. A more comprehensive drug screen or confirmation of a detected drug may be performed upon request.Media Supervisor ID - [id number] METABOLIC [id number] 06:31:55 Test Item Value Reference Range Interpretation Comments SODIUM (BEAKER) (test 137 meq/L 135-148 code = 381) POTASSIUM (BEAKER) 3.7 meq/L 3.5-5.5 (test code = 379) CHLORIDE (BEAKER) 108 meq/L 98-106 H (test code = 382) CO2 (BEAKER) (test 21 meq/L 20-31 code = 355) BLOOD UREA NITROGEN 12 mg/dL 10-26 (BEAKER) (test code = 354) CREATININE (BEAKER) 0.57 mg/dL 0.50-1.20 (test code = 358) GLUCOSE RANDOM 198 mg/dL 70-110 H (BEAKER) (test code = 652) CALCIUM (BEAKER) 7.1 mg/dL 8.5-10.5 L (test code = 697) EGFR (BEAKER) (test INSUFFIC IENT CLINICAL code = 1092) DATA TO CALCULA TE ESTIMATED GFR. Media Supervisor ID - [id number] 06:31:03 Test Item Value Reference Range Interpretation Comments PHOSPHORUS (BEAKER) (test code = 2.0 mg/dL 2.5-4.5 L 604) Media Supervisor ID - [id number] 06:31:02 Test Item Value Reference Range Interpretation Comments MAGNESIUM (BEAKER) (test code = 2.7 mg/dL 1.5-3.0 627) Media Supervisor ID - [id number] 06:25:10 Test Item Value Reference Range Interpretation Comments ETHANOL (BEAKER) < mg/dL See_Comment [Automated message] The (test code = 400) system [facility] generated this result tra nsmitted reference range : <=10. The reference r ronel was not used to int erpret this result as normal/abnormal . Media Supervisor ID - [id number] 06:14:52 Test Item Value Reference Range Interpretation Comments POC-GLUCOSE METER 158 mg/dL 70-110 H : TESTED A T [facility] [address] (BEAKER) (test code [facility], = 1538) [place] [address] 384: Media Supervisor/Techni vic ID = [id number] for S Alfredo martinez POCT-GLUCOSE [id number] 06:13:16 Test Item Value Reference Range Interpretation Comments POC-GLUCOSE METER 178 mg/dL 70-110 H : TESTED A T [facility] [address] (BEAKER) (test code [facility], = 1538) [place] [address] 384: Media Supervisor/Techni vic ID = [id number] for S michelle, Alfredo POCT-GLUCOSE [id number] 05:17:23 Test Item Value Reference Range Interpretation Comments POC-GLUCOSE METER 197 mg/dL 70-110 H : TESTED A T [facility] [address] (BEAKER) (test code [facility], = 1538) [place] [address] 384: Media Supervisor/Techni vic ID = [id number] for Alfredo Haq URINALYSIS W/ REFLEX URINE [id number] 05:15:30 Test Item Value Reference Range Interpretation Comments COLOR (BEAKER) (test code = 470) Yellow CLARITY (BEAKER) (test code = 469) Hazy SPECIFIC GRAVITY UA (BEAKER) (test 1.014 1.001-1.035 code = 468) PH UA (BEAKER) (test code = 467) 6.0 5.0-8.0 PROTEIN UA (BEAKER) (test code = Negative Negative 464) GLUCOSE UA (BEAKER) (test code = >500 mg/dL Negative A 365) KETONES UA (BEAKER) (test code = Trace Negative A 371) BILIRUBIN UA (BEAKER) (test code = Negative Negative 462) BLOOD UA (BEAKER) (test code = Negative Negative 461) NITRITE UA (BEAKER) (test code = Negative Negative 465) LEUKOCYTE ESTERASE UA (BEAKER) Small Negative A (test code = 466) UROBILINOGEN UA (BEAKER) (test < mg/dL 0.2-1.0 code = 463) RBC UA (BEAKER) (test code = 519) 1 /HPF WBC UA (BEAKER) (test code = 520) 49 /HPF BACTERIA (BEAKER) (test code = Moderate 517) MUCUS (BEAKER) (test code = 1574) Rare SQUAMOUS EPITHELIAL (BEAKER) (test 1 /HPF code = 516) SOURCE(BEAKER) (test code = 2795) Media Supervisor ID - [auto]Media Supervisor ID - techPOCT-GLUCOSE [id number] 04:16:17 Test Item Value Reference Range Interpretation Comments POC-GLUCOSE METER 241 mg/dL 70-110 H : TESTED A T [facility] [address] (BEAKER) (test code [facility], = 1538) [place] [address] 384: Media Supervisor/Techni vic ID = [id number] for Alfredo Haq HEMOGLOBIN [id number] 03:57:40 Test Item Value Reference Range Interpretation Comments HEMOGLOBIN A1C (BEAKER) (test code = > % 4.3-6.1 H 368) Media Supervisor ID - ZCHRISOperator ID - ZCHRISLIPID [id number] 03:25:34 Test Item Value Reference Range Interpretation Comments TRIGLYCERIDES (BEAKER) (test code = 107 mg/dL 540) CHOLESTEROL (BEAKER) (test code = 189 mg/dL 631) HDL CHOLESTEROL (BEAKER) (test code 62 mg/dL = 976) LDL CHOLESTEROL CALCULATED (BEAKER) 106 mg/dL (test code = 633) Triglyceride Reference Range: Low Risk <150 Borderline 150-199 High Risk 200-499 Very High Risk >=500Cholesterol Reference Range: Low Risk <200 Borderline 200-239 High Risk >240HDL Cholesterol Reference Range: Low Risk >=60 High Risk <40LDL Cholesterol Reference Range: Optimal <100 Near Optimal 100-129 Borderline 130-159 High 160-189 Very High >=190 Media Supervisor ID - ZCHRISPOCT-GLUCOSE [id number] 03:19:18 Test Item Value Reference Range Interpretation Comments POC-GLUCOSE METER 288 mg/dL 70-110 H : TESTED A T [facility] [address] (BEAKER) (test code [facility], = 1538) [place] [address] 384: Media Supervisor/Techni vic ID = [id number] for Alfredo Haq PT/[id number] 02:16:03 Test Item Value Reference Range Interpretation Comments PROTIME (BEAKER) (test code = 12.9 seconds 11.8-14.4 759) INR (BEAKER) (test code = 370) 1.02 1.20-1.50 L PARTIAL THROMBOPLASTIN TIME 22.4 seconds 23.2-36.1 L (BEAKER) (test code = 760) RECOMMENDED COUMADIN/WARFARIN INR THERAPY RANGESSTANDARD DOSE: 2.0 - 3.0 Includes: PROPHYLAXIS for venous thrombosis, systemic embolization; TREATMENT for venous thrombosis and/or pulmonary embolus.HIGH RISK: Target INR is 2.5-3.5 for patients with mechanical heart valves.BASIC METABOLIC [id number] 02:13:55 Test Item Value Reference Range Interpretation Comments SODIUM (BEAKER) (test 133 meq/L 135-148 L code = 381) POTASSIUM (BEAKER) 3.8 meq/L 3.5-5.5 (test code = 379) CHLORIDE (BEAKER) 100 meq/L 98-106 (test code = 382) CO2 (BEAKER) (test 22 meq/L 20-31 code = 355) BLOOD UREA NITROGEN 17 mg/dL 10-26 (BEAKER) (test code = 354) CREATININE (BEAKER) 0.75 mg/dL 0.50-1.20 (test code = 358) GLUCOSE RANDOM 353 mg/dL 70-110 H (BEAKER) (test code = 652) CALCIUM (BEAKER) 8.3 mg/dL 8.5-10.5 L (test code = 697) EGFR (BEAKER) (test INSUFFIC IENT CLINICAL code = 1092) DATA TO CALCULA TE ESTIMATED GFR. COMPREHENSIVE METABOLIC [id number] 02:13:44 Test Item Value Reference Range Interpretation Comments TOTAL PROTEIN 5.9 gm/dL 6.0-8.5 L (BEAKER) (test code = 770) ALBUMIN (BEAKER) 3.3 g/dL 3.5-5.0 L (test code = 1145) ALKALINE PHOSPHATASE 104 U/L 30-115 (BEAKER) (test code = 346) BILIRUBIN TOTAL 0.5 mg/dL 0.1-1.3 (BEAKER) (test code = 377) SODIUM (BEAKER) (test 133 meq/L 135-148 L code = 381) POTASSIUM (BEAKER) 3.8 meq/L 3.5-5.5 (test code = 379) CHLORIDE (BEAKER) 100 meq/L 98-106 (test code = 382) CO2 (BEAKER) (test 22 meq/L 20-31 code = 355) BLOOD UREA NITROGEN 17 mg/dL 10-26 (BEAKER) (test code = 354) CREATININE (BEAKER) 0.75 mg/dL 0.50-1.20 (test code = 358) GLUCOSE RANDOM 353 mg/dL 70-110 H (BEAKER) (test code = 652) CALCIUM (BEAKER) 8.3 mg/dL 8.5-10.5 L (test code = 697) AST (SGOT) (BEAKER) 16 U/L 5-40 (test code = 353) ALT (SGPT) (BEAKER) 19 U/L 6-50 (test code = 347) EGFR (BEAKER) (test INSUFFIC IENT CLINICAL code = 1092) DATA TO CALCULA TE ESTIMATED GFR. Media Supervisor ID - [id number] 02:08:21 Test Item Value Reference Range Interpretation Comments TRIGLYCERIDES (BEAKER) (test code = 108 mg/dL 540) TRIGLYCERIDE REFERENCE RANGELow Risk <150Borderline Risk 150-199High Risk 200-499Very High Risk >=500Operator ID - [id number] 02:08:21 Test Item Value Reference Range Interpretation Comments AMYLASE (BEAKER) (test code = 349) 83 U/L 30-110 Media Supervisor ID - [id number] 02:08:21 Test Item Value Reference Range Interpretation Comments LIPASE (BEAKER) (test code = 749) 42 U/L 8-78 Media Supervisor ID - [id number] 02:08:20 Test Item Value Reference Range Interpretation Comments MAGNESIUM (BEAKER) (test code = 1.8 mg/dL 1.5-3.0 627) Media Supervisor ID - [id number] 02:08:20 Test Item Value Reference Range Interpretation Comments PHOSPHORUS (BEAKER) (test code = 2.6 mg/dL 2.5-4.5 604) Media Supervisor ID - ZJOSETROPONIN [id number] 02:01:00 Test Item Value Reference Range Interpretation Comments TROPONIN I (BEAKER) (test code = 397) < ng/mL 0.00-0.15 Troponin I (TnI) levels must be interpreted in the context of the presenting symptoms and the clinical findings. Elevated TnI levels indicate myocardial damage, but are not specific for ischemic heart disease. Elevated TnI levels are seen in patients with other cardiac conditions (including myocarditis and congestive heart failure), and slight TnI elevations occur in patients with other conditions, including sepsis, renal failure, acidosis, acute neurological disease, and persistent tachyarrhythmia.Media Supervisor ID - ZCHRISLACTIC ACID, VENOUS 2022-01-10 01:53:30 Test Item Value Reference Range Interpretation Comments LACTATE BLOOD VENOUS (2) (BEAKER) 0.72 mmol/L 0.50-2.20 (test code = 2872) Media Supervisor ID - ZCHRISCALCIUM, [id number] 01:45:52 Test Item Value Reference Range Interpretation Comments CALCIUM IONIZED (BEAKER) (test 1.12 mmol/L 1.12-1.27 code = 698) PH, BLOOD (BEAKER) (test code = 7.39 1810) KETONE, [id number] 01:45:45 Test Item Value Reference Range Interpretation Comments KETONES, BLOOD (BEAKER) (test code 0.5 mmol/L <0.4 H = 1103) CBC W/PLT COUNT & AUTO [id number] 01:42:51 Test Item Value Reference Range Interpretation Comments WHITE BLOOD CELL COUNT (BEAKER) 11.6 K/ L 4.0-10.0 H (test code = 775) RED BLOOD CELL COUNT (BEAKER) 4.07 M/ L 4.00-5.00 (test code = 761) HEMOGLOBIN (BEAKER) (test code = 12.3 GM/DL 12.0-15.5 410) HEMATOCRIT (BEAKER) (test code = 35.9 % 36.0-46.0 L 411) MEAN CORPUSCULAR VOLUME (BEAKER) 88.2 fL 82.0-99.0 (test code = 753) MEAN CORPUSCULAR HEMOGLOBIN 30.2 pg 27.0-33.0 (BEAKER) (test code = 751) MEAN CORPUSCULAR HEMOGLOBIN CONC 34.3 GM/DL 32.0-36.0 (BEAKER) (test code = 752) RED CELL DISTRIBUTION WIDTH 11.9 % 12.0-15.0 L (BEAKER) (test code = 412) PLATELET COUNT (BEAKER) (test 277 K/CU MM 150-430 code = 756) MEAN PLATELET VOLUME (BEAKER) 11.1 fL 6.0-11.5 (test code = 754) NUCLEATED RED BLOOD CELLS 0 /100 WBC 0-0 (BEAKER) (test code = 413) NEUTROPHILS RELATIVE PERCENT 76 % (BEAKER) (test code = 429) LYMPHOCYTES RELATIVE PERCENT 20 % (BEAKER) (test code = 430) MONOCYTES RELATIVE PERCENT 3 % (BEAKER) (test code = 431) EOSINOPHILS RELATIVE PERCENT 0 % (BEAKER) (test code = 432) BASOPHILS RELATIVE PERCENT 0 % (BEAKER) (test code = 437) NEUTROPHILS ABSOLUTE COUNT 8.85 K/ L 1.80-8.00 H (BEAKER) (test code = 670) LYMPHOCYTES ABSOLUTE COUNT 2.34 K/ L 1.48-4.50 (BEAKER) (test code = 414) MONOCYTES ABSOLUTE COUNT (BEAKER) 0.31 K/ L 0.00-1.30 (test code = 415) EOSINOPHILS ABSOLUTE COUNT 0.03 K/ L 0.00-0.50 (BEAKER) (test code = 416) BASOPHILS ABSOLUTE COUNT (BEAKER) 0.02 K/ L 0.00-0.20 (test code = 417) IMMATURE GRANULOCYTES-RELATIVE 1 % 0-0 H PERCENT (BEAKER) (test code = 2801) U/S, ABDOMINAL, [id number] 01:40:00Abdomen limited area? Add comment if clarification is needed.->Right upper quadrantReason for exam:->Elevated LFTsCOLORADO RIVER MEDICAL CENTERName: GEREMIAS GARCIA : 1960 Sex: FFINAL REPORT U/S, ABDOMINAL, LIMITED CLINICAL HISTORY: Elevated LFTs Comparison: None Technique: Real-time transabdominal ultrasound of the right upper quadrant abdomen was performed. Liver: 14 cm, within Gallbladder: No gallstones. No gallbladder wall thickening. No pericholecystic fluid. No sonographic Katz's sign. Biliary tree: No intrahepatic ductal dilatation. CBD: 0.4cm. Pancreas: Not well-seen due to overlying bowel gas. Right kidney: No acute findings. No ascites is present in the abdomen. The visualized portions of the abdominal aorta, IVC and hepatic veins are unremarkable. Impression: No sonographic evidence of acute cholecystitis or cholelithiasis. Signed: Jai Knapp MDReport Verified Date/Time: 01/10/2022 01:40:35 POCT-GLUCOSE [id number] 01:25:18 Test Item Value Reference Range Interpretation Comments POC-GLUCOSE METER 347 mg/dL 70-110 H : TESTED A T [facility] [address] (BEAKER) (test code [facility], = 1538) [place] [id number] 384: Media Supervisor/Techni vic ID = [id number] for Alfredo Haq SCR MAMM BILATERAL GUERLINE CAD [id number] 13:33:01 Name: Geremias : 1960 Sex: F - SCR MAMM BILATERAL GUERLINE CAD DIGITALBILATERAL DIGITAL SCREENING MAMMOGRAM 3D/2D WITH CAD: 12/04/2021LINICAL: Asymptomatic. Digital breast tomosynthesis was performed in addition to routine CC and MLO views. Current mammographic images were evaluated by [employer]er CAD (computer-aided detection) software. Comparison is made to exams dated 08/22/2020 mammogram, 02/09/2018 mammogram, and 12/14/2016 mammogram - [facility]. There are scattered fibroglandular tissues in both breasts. No suspicious mass, architectural distortion, malignant type calcification, or lymph node abnormality detected. Breast architecture is stable compared to prior exams.IMPRESSION: NEGATIVEThere is no mammographic evidence of malignancy. Resumeannual screening mammography in one year. Lance Fofana M.D. et/penrad:12/04/2021 13:33:01 Technical Professional: Jacqueline Hernandez MM, [facility] sent: BIRADS 1-2 Normal Mammogram BI-RADS: 1 NegativeCOMPREHENSIVE METABOLIC [id number] 02:45:49 Test Item Value Reference Range Interpretation Comments GLUCOSE (test code = 683 MG/DL 70-99 HH 2216) BUN (test code = 14 MG/DL 6-20 2207) CREATININE (test 0.61 MG/DL 0.60-1.30 code = 221) eGFR (2020 CKD-EPI) 103 >60 (test code = 89283) ML/MIN/1.73 CALC BUN/CREAT (test 23 RATIO 6-28 code = 223) SODIUM (test code = 130 MEQ/L 133-146 L 2230) POTASSIUM (test code 4.5 MEQ/L 3.5-5.4 = 2227) CHLORIDE (test code 93 MEQ/L 95-107 L = 2214) CARBON DIOXIDE (test 21 MEQ/L 19-31 code = 2205) CALCIUM (test code = 8.7 MG/DL 8.5-10.5 2208) PROTEIN, TOTAL (test 6.4 G/DL 6.1-8.3 code = 2228) ALBUMIN (test code = 4.0 G/DL 3.5-5.2 2200) CALC GLOBULIN (test 2.4 G/DL 1.9-3.7 code = 224) CALC A/G RATIO (test 1.7 RATIO 1.0-2.6 code = 223) BILIRUBIN, TOTAL 0.2 MG/DL See_Comment [Automated message] (test code = 220) The syste m which generated this result transmit frances reference range : <=1.2. The refe rence range was not u sed to interpret th is result as normal/abnormal . ALKALINE PHOSPHATASE 113 U/L 40-136 (test code = 220) AST (test code = 17 U/L 9-40 2217) ALT (test code = 21 U/L 5-40 2218) LIPID [id number] 02:45:49 Test Item Value Reference Range Interpretation [...] MOREINFORMATION , SEE CLIENT ANNOUNCE MENT AT [email or web address] RISK RATIO LDL/HDL 2.16 RATIO <3.22 UNLESS O THERWISE (test code = 2238) INDICATED , ALL TESTING PERFORMED [facility], [facility]. [address] [place], [place] [id number] [place] [address] DIRECTOR: LETICIA MARROQUIN M.D. CLIA NUMBER [id number] CAP ACCREDITATION N O. [id number] COMPREHENSIVE METABOLIC [id number] 00:00:00 Test Item Value Reference Range Interpretation Comments GLUCOSE (test code = 2217) 683 MG/DL BUN (test code = 2208) 14 MG/DL CREATININE (test code = 2214) 0.61 MG/DL eGFR (2020 CKD-EPI) (test 103 ML/MIN/1.73 code = 00310) CALC BUN/CREAT (test code = 23 RATIO 2235) SODIUM (test code = 2231) 130 MEQ/L POTASSIUM (test code = 2228) 4.5 MEQ/L CHLORIDE (test code = 2215) 93 MEQ/L CARBON DIOXIDE (test code = 21 MEQ/L 2206) CALCIUM (test code = 2209) 8.7 MG/DL PROTEIN, TOTAL (test code = 6.4 G/DL 222) ALBUMIN (test code = 2201) 4.0 G/DL CALC GLOBULIN (test code = 2.4 G/DL 2240) CALC A/G RATIO (test code = 1.7 RATIO 2234) BILIRUBIN, TOTAL (test code = 0.2 MG/DL 220) ALKALINE PHOSPHATASE (test 113 U/L code = 2204) AST (test code = 2218) 17 U/L ALT (test code = 2219) 21 U/L COMPREHENSIVE METABOLIC [id number] 00:00:00 Test Item Value Reference Range Interpretation Comments GLUCOSE (test code = 2217) 683 MG/DL BUN (test code = 2208) 14 MG/DL CREATININE (test code = 2214) 0.61 MG/DL eGFR (2020 CKD-EPI) (test 103 ML/MIN/1.73 code = 58842) CALC BUN/CREAT (test code = 23 RATIO 2235) SODIUM (test code = 2231) 130 MEQ/L POTASSIUM (test code = 2228) 4.5 MEQ/L CHLORIDE (test code = 2215) 93 MEQ/L CARBON DIOXIDE (test code = 21 MEQ/L 220) CALCIUM (test code = 2209) 8.7 MG/DL PROTEIN, TOTAL (test code = 6.4 G/DL 2228) ALBUMIN (test code = 2201) 4.0 G/DL CALC GLOBULIN (test code = 2.4 G/DL 224) CALC A/G RATIO (test code = 1.7 RATIO 2234) BILIRUBIN, TOTAL (test code = 0.2 MG/DL 2206) ALKALINE PHOSPHATASE (test 113 U/L code = 2204) AST (test code = 2218) 17 U/L ALT (test code = 2219) 21 U/L LIPID [id number] 00:00:00 Test Item Value Reference Range Interpretation Comments CHOLESTEROL (test code = 2210) 225 MG/DL TRIGLYCERIDES (test code = 2232) 337 MG/DL HDL CHOLESTEROL (test code = 2220) 56 MG/DL CALC LDL CHOL (test code = 2237) 121 MG/DL RISK RATIO LDL/HDL (test code = 2.16 RATIO 2238) LIPID [id number] 00:00:00 Test Item Value Reference Range Interpretation Comments CHOLESTEROL (test code = 2210) 225 MG/DL TRIGLYCERIDES (test code = 2232) 337 MG/DL HDL CHOLESTEROL (test code = 2220) 56 MG/DL CALC LDL CHOL (test code = 2237) 121 MG/DL RISK RATIO LDL/HDL (test code = 2.16 RATIO 2238) HEMOGLOBIN [id number] 05:20:09 Test Item Value Reference Range Interpretation Comments HEMOGLOBIN A1c >15.5 % 4.2-5.6 H [facility] (test code = 80569) ASSOCIAT ION GUIDELINES FOR HGB A1C: PREDIABETES/INC REASED RISK . . . . . . . 5 .7-6.4% DIAGNOSIS OF DI ABETES . . . . . . . . . >=6 .5% WITH CONFIRMATION OR APPROPRIATE SYMPTOMS NOTE: ASSAY MAY BE AFFECTED BY HEMOGLOBINOPATH IES (SICKLE CELL ANEMIA, S- C DISEASE, OTHERS) OR DONATO FICIALLY LOWERED BY DECR EASED RED CELL SURVIVAL ( HEMOLYTIC ANEMIAS, BLOOD LOSS, ETC.). CONSIDER ALTERN ATE TESTING OR LABORATORY C ONSULTATION. HEMOGLOBIN [id number] 00:00:00 Test Item Value Reference Range Interpretation Comments HEMOGLOBIN A1c (test code = 00072) >15.5 % HEMOGLOBIN [id number] 00:00:00 Test Item Value Reference Range Interpretation Comments HEMOGLOBIN A1c (test code = 66770) >15.5 % HEMOGLOBIN [id number] 00:00:00 Test Item Value Reference Range Interpretation Comments HEMOGLOBIN A1c (test code = 83553) >15.5 % COMPREHENSIVE METABOLIC [id number] 00:00:00 Test Item Value Reference Range Interpretation Comments GLUCOSE (test code = 2217) 362 MG/DL BUN (test code = 2208) 10 MG/DL CREATININE (test code = 2214) 0.65 MG/DL eGFR AMER. (test code 113 ML/MIN/1.73 = 59599) eGFR NON- AMER. (test 98 ML/MIN/1.73 code = 48498) CALC BUN/CREAT (test code = 15 RATIO 2235) SODIUM (test code = 2231) 138 MEQ/L POTASSIUM (test code = 2228) 4.7 MEQ/L CHLORIDE (test code = 2215) 101 MEQ/L CARBON DIOXIDE (test code = 27 MEQ/L 2205) CALCIUM (test code = 2209) 9.8 MG/DL PROTEIN, TOTAL (test code = 7.0 G/DL 2228) ALBUMIN (test code = 2201) 4.5 G/DL CALC GLOBULIN (test code = 2.5 G/DL 2240) CALC A/G RATIO (test code = 1.8 RATIO 2234) BILIRUBIN, TOTAL (test code = 0.8 MG/DL 2206) ALKALINE PHOSPHATASE (test 89 U/L code = 2204) AST (test code = 2218) 14 U/L ALT (test code = 2219) 14 U/L COMPREHENSIVE METABOLIC [id number] 00:00:00 Test Item Value Reference Range Interpretation Comments GLUCOSE (test code = 2217) 362 MG/DL BUN (test code = 2208) 10 MG/DL CREATININE (test code = 2214) 0.65 MG/DL eGFR AMER. (test code 113 ML/MIN/1.73 = 11612) eGFR NON- AMER. (test 98 ML/MIN/1.73 code = 33984) CALC BUN/CREAT (test code = 15 RATIO 2235) SODIUM (test code = 2231) 138 MEQ/L POTASSIUM (test code = 2228) 4.7 MEQ/L CHLORIDE (test code = 2215) 101 MEQ/L CARBON DIOXIDE (test code = 27 MEQ/L 2205) CALCIUM (test code = 2209) 9.8 MG/DL PROTEIN, TOTAL (test code = 7.0 G/DL 2228) ALBUMIN (test code = 2201) 4.5 G/DL CALC GLOBULIN (test code = 2.5 G/DL 2239) CALC A/G RATIO (test code = 1.8 RATIO 2233) BILIRUBIN, TOTAL (test code = 0.8 MG/DL 2206) ALKALINE PHOSPHATASE (test 89 U/L code = 2204) AST (test code = 2218) 14 U/L ALT (test code = 2219) 14 U/L CBC W/AUTO [id number] 00:00:00 Test Item Value Reference Range Interpretation Comments WBC (test code = 1001) 8.0 K/UL RBC (test code = 1002) 4.87 M/UL HEMOGLOBIN (test code = 1003) 14.9 G/DL HEMATOCRIT (test code = 1004) 43.8 % MCV (test code = 1005) 89.9 fL MCH (test code = 1006) 30.6 PG MCHC (test code = 1007) 34.0 G/DL RDW (test code = 1038) 11.8 % NEUTROPHILS (test code = 1008) 68.4 % LYMPHOCYTES (test code = 1010) 24.9 % MONOCYTES (test code = 1011) 5.1 % EOSINOPHILS (test code = 1012) 1.1 % BASOPHILS (test code = 1013) 0.5 % PLATELET COUNT (test code = 1015) 241 K/UL CBC W/AUTO [id number] 00:00:00 Test Item Value Reference Range Interpretation Comments WBC (test code = 1001) 8.0 K/UL RBC (test code = 1002) 4.87 M/UL HEMOGLOBIN (test code = 1003) 14.9 G/DL HEMATOCRIT (test code = 1004) 43.8 % MCV (test code = 1005) 89.9 fL MCH (test code = 1006) 30.6 PG MCHC (test code = 1007) 34.0 G/DL RDW (test code = 1038) 11.8 % NEUTROPHILS (test code = 1008) 68.4 % LYMPHOCYTES (test code = 1010) 24.9 % MONOCYTES (test code = 1011) 5.1 % EOSINOPHILS (test code = 1012) 1.1 % BASOPHILS (test code = 1013) 0.5 % PLATELET COUNT (test code = 1015) 241 K/UL CBC W/AUTO [id number] 00:00:00 Test Item Value Reference Range Interpretation Comments WBC (test code = 1001) 8.0 K/UL RBC (test code = 1002) 4.87 M/UL HEMOGLOBIN (test code = 1003) 14.9 G/DL HEMATOCRIT (test code = 1004) 43.8 % MCV (test code = 1005) 89.9 fL MCH (test code = 1006) 30.6 PG MCHC (test code = 1007) 34.0 G/DL RDW (test code = 1038) 11.8 % NEUTROPHILS (test code = 1008) 68.4 % LYMPHOCYTES (test code = 1010) 24.9 % MONOCYTES (test code = 1011) 5.1 % EOSINOPHILS (test code = 1012) 1.1 % BASOPHILS (test code = 1013) 0.5 % PLATELET COUNT (test code = 1015) 241 K/UL LIPID [id number] 00:00:00 Test Item Value Reference Range Interpretation Comments CHOLESTEROL (test code = 2210) 223 MG/DL TRIGLYCERIDES (test code = 2232) 152 MG/DL HDL CHOLESTEROL (test code = 2220) 62 MG/DL CALC LDL CHOL (test code = 2237) 133 MG/DL RISK RATIO LDL/HDL (test code = 2.15 RATIO 2238) LIPID [id number] 00:00:00 Test Item Value Reference Range Interpretation Comments CHOLESTEROL (test code = 2210) 223 MG/DL TRIGLYCERIDES (test code = 2232) 152 MG/DL HDL CHOLESTEROL (test code = 2220) 62 MG/DL CALC LDL CHOL (test code = 2237) 133 MG/DL RISK RATIO LDL/HDL (test code = 2.15 RATIO 2238) HEMOGLOBIN [id number] 00:00:00 Test Item Value Reference Range Interpretation Comments HEMOGLOBIN A1c (test code = 12526) 13.8 % HEMOGLOBIN [id number] 00:00:00 Test Item Value Reference Range Interpretation Comments HEMOGLOBIN A1c (test code = 77856) 13.8 % HEMOGLOBIN [id number] 00:00:00 Test Item Value Reference Range Interpretation Comments HEMOGLOBIN A1c (test code = 34700) 13.8 % SCR MAMM BILATERAL GUERLINE CAD [id number] 11:18:52 Name: Geremias : 1960 Sex: F - SCR MAMM BILATERAL GUERLINE CAD DIGITALBILATERAL DIGITAL SCREENING MAMMOGRAM 3D/2D WITH CAD: 08/22/2020CLINICAL: Asymptomatic. Digital breast tomosynthesis was performed in addition to routine CC and MLO views. Current mammographic images were evaluated by either a [employer]u or a [employer] CAD (computer aided detection system). Comparison is made to exams dated 02/09/2018 mammogram and 12/14/2016 mammogram - [facility]. There are scattered fibroglandular tissues in both breasts. No suspicious mass, architectural distortion, malignant type calcification, or lymph node abnormality detected. Breast architecture is stable compared to prior exams.IMPRESSION: NEGATIVEThere is no mammographic evidence of malignancy. Resume annual screening mammography in one year. Lance Xavier/antony:09/02/2020 11:18:52 Attending Technologist: Rebecca Underwood MM, [facility] MammographyImaging Technologist: Jacqueline Hernandez MM, [facility] Mammographyletter sent: BIRADS 1-2 Normal Mammogram BI-RADS: 1 [id number] (COVID-19) by RT-PCR (HIGH RISK)2020-04-18 00:00:00 Test Item Value Reference Range Interpretation Comments SARS-CoV-2 INTERPRETATION POSITIVE (test code = 53640) SOURCE (test code = 03160) NASOPHARYNGEAL SARS-CoV-2 (COVID-19) by RT-PCR (HIGH RISK)2020-04-18 00:00:00 Test Item Value Reference Range Interpretation Comments SARS-CoV-2 INTERPRETATION POSITIVE (test code = 20875) SOURCE (test code = 88096) NASOPHARYNGEAL [id number] 00:00:00 Test Item Value Reference Range Interpretation Comments TSH, THIRD GENERATION (test code 1.500 UIU/ML = 2821) [id number] 00:00:00 Test Item Value Reference Range Interpretation Comments TSH, THIRD GENERATION (test code 1.500 UIU/ML = 2821) [id number] 00:00:00 Test Item Value Reference Range Interpretation Comments TSH, THIRD GENERATION (test code 1.500 UIU/ML = 2821) CBC W/AUTO [id number] 00:00:00 Test Item Value Reference Range Interpretation Comments WBC (test code = 1001) 9.4 K/UL RBC (test code = 1002) 4.50 M/UL HEMOGLOBIN (test code = 1003) 13.8 G/DL HEMATOCRIT (test code = 1004) 38.7 % MCV (test code = 1005) 86.0 fL MCH (test code = 1006) 30.7 PG MCHC (test code = 1007) 35.7 G/DL RDW (test code = 1038) 12.1 % NEUTROPHILS (test code = 1008) 62.3 % LYMPHOCYTES (test code = 1010) 29.8 % MONOCYTES (test code = 1011) 5.9 % EOSINOPHILS (test code = 1012) 1.4 % BASOPHILS (test code = 1013) 0.6 % PLATELET COUNT (test code = 1015) 265 K/UL CBC W/AUTO [id number] 00:00:00 Test Item Value Reference Range Interpretation Comments WBC (test code = 1001) 9.4 K/UL RBC (test code = 1002) 4.50 M/UL HEMOGLOBIN (test code = 1003) 13.8 G/DL HEMATOCRIT (test code = 1004) 38.7 % MCV (test code = 1005) 86.0 fL MCH (test code = 1006) 30.7 PG MCHC (test code = 1007) 35.7 G/DL RDW (test code = 1038) 12.1 % NEUTROPHILS (test code = 1008) 62.3 % LYMPHOCYTES (test code = 1010) 29.8 % MONOCYTES (test code = 1011) 5.9 % EOSINOPHILS (test code = 1012) 1.4 % BASOPHILS (test code = 1013) 0.6 % PLATELET COUNT (test code = 1015) 265 K/UL CBC W/AUTO [id number] 00:00:00 Test Item Value Reference Range Interpretation Comments WBC (test code = 1001) 9.4 K/UL RBC (test code = 1002) 4.50 M/UL HEMOGLOBIN (test code = 1003) 13.8 G/DL HEMATOCRIT (test code = 1004) 38.7 % MCV (test code = 1005) 86.0 fL MCH (test code = 1006) 30.7 PG MCHC (test code = 1007) 35.7 G/DL RDW (test code = 1038) 12.1 % NEUTROPHILS (test code = 1008) 62.3 % LYMPHOCYTES (test code = 1010) 29.8 % MONOCYTES (test code = 1011) 5.9 % EOSINOPHILS (test code = 1012) 1.4 % BASOPHILS (test code = 1013) 0.6 % PLATELET COUNT (test code = 1015) 265 K/UL HEMOGLOBIN [id number] 00:00:00 Test Item Value Reference Range Interpretation Comments HEMOGLOBIN A1c (test code = 95955) 9.7 % HEMOGLOBIN [id number] 00:00:00 Test Item Value Reference Range Interpretation Comments HEMOGLOBIN A1c (test code = 52333) 9.7 % HEMOGLOBIN [id number] 00:00:00 Test Item Value Reference Range Interpretation Comments HEMOGLOBIN A1c (test code = 51839) 9.7 % LIPID [id number] 00:00:00 Test Item Value Reference Range Interpretation Comments CHOLESTEROL (test code = 2210) 195 MG/DL TRIGLYCERIDES (test code = 2232) 109 MG/DL HDL CHOLESTEROL (test code = 2220) 60 MG/DL CALC LDL CHOL (test code = 2237) 113 MG/DL RISK RATIO LDL/HDL (test code = 1.88 RATIO 2238) LIPID [id number] 00:00:00 Test Item Value Reference Range Interpretation Comments CHOLESTEROL (test code = 2210) 195 MG/DL TRIGLYCERIDES (test code = 2232) 109 MG/DL HDL CHOLESTEROL (test code = 2220) 60 MG/DL CALC LDL CHOL (test code = 2237) 113 MG/DL RISK RATIO LDL/HDL (test code = 1.88 RATIO 2238) COMPREHENSIVE METABOLIC [id number] 00:00:00 Test Item Value Reference Range Interpretation Comments GLUCOSE (test code = 2217) 192 MG/DL BUN (test code = 2208) 14 MG/DL CREATININE (test code = 2214) 0.78 MG/DL eGFR AMER. (test code 98 ML/MIN/1.73 = 94481) eGFR NON- AMER. (test 84 ML/MIN/1.73 code = 64057) CALC BUN/CREAT (test code = 18 RATIO 2235) SODIUM (test code = 2231) 139 MEQ/L POTASSIUM (test code = 2228) 4.6 MEQ/L CHLORIDE (test code = 2215) 101 MEQ/L CARBON DIOXIDE (test code = 22 MEQ/L 2206) CALCIUM (test code = 2209) 10.1 MG/DL PROTEIN, TOTAL (test code = 7.5 G/DL 2228) ALBUMIN (test code = 2201) 4.8 G/DL CALC GLOBULIN (test code = 2.7 G/DL 2240) CALC A/G RATIO (test code = 1.8 RATIO 2234) BILIRUBIN, TOTAL (test code = 0.4 MG/DL 2206) ALKALINE PHOSPHATASE (test 76 U/L code = 2204) AST (test code = 2218) 14 U/L ALT (test code = 2219) 12 U/L COMPREHENSIVE METABOLIC [id number] 00:00:00 Test Item Value Reference Range Interpretation Comments GLUCOSE (test code = 2217) 192 MG/DL BUN (test code = 2208) 14 MG/DL CREATININE (test code = 2214) 0.78 MG/DL eGFR AMER. (test code 98 ML/MIN/1.73 = 89663) eGFR NON- AMER. (test 84 ML/MIN/1.73 code = 72521) CALC BUN/CREAT (test code = 18 RATIO 2235) SODIUM (test code = 2231) 139 MEQ/L POTASSIUM (test code = 2228) 4.6 MEQ/L CHLORIDE (test code = 2215) 101 MEQ/L CARBON DIOXIDE (test code = 22 MEQ/L 2205) CALCIUM (test code = 2209) 10.1 MG/DL PROTEIN, TOTAL (test code = 7.5 G/DL 2228) ALBUMIN (test code = 2201) 4.8 G/DL CALC GLOBULIN (test code = 2.7 G/DL 2239) CALC A/G RATIO (test code = 1.8 RATIO 223) BILIRUBIN, TOTAL (test code = 0.4 MG/DL 2206) ALKALINE PHOSPHATASE (test 76 U/L code = 2204) AST (test code = 2218) 14 U/L ALT (test code = 2219) 12 U/L LIPID [id number] 00:00:00 Test Item Value Reference Range Interpretation Comments CHOLESTEROL (test code = 2210) 223 MG/DL TRIGLYCERIDES (test code = 2232) 151 MG/DL HDL CHOLESTEROL (test code = 2220) 58 MG/DL CALC LDL CHOL (test code = 2237) 135 MG/DL RISK RATIO LDL/HDL (test code = 2.32 RATIO 2238) LIPID [id number] 00:00:00 Test Item Value Reference Range Interpretation Comments CHOLESTEROL (test code = 2210) 223 MG/DL TRIGLYCERIDES (test code = 2232) 151 MG/DL HDL CHOLESTEROL (test code = 2220) 58 MG/DL CALC LDL CHOL (test code = 2237) 135 MG/DL RISK RATIO LDL/HDL (test code = 2.32 RATIO 2238) HEMOGLOBIN [id number] 00:00:00 Test Item Value Reference Range Interpretation Comments HEMOGLOBIN A1c (test code = 73196) 11.5 % HEMOGLOBIN [id number] 00:00:00 Test Item Value Reference Range Interpretation Comments HEMOGLOBIN A1c (test code = 60157) 11.5 % HEMOGLOBIN [id number] 00:00:00 Test Item Value Reference Range Interpretation Comments HEMOGLOBIN A1c (test code = 02526) 11.5 % COMPREHENSIVE METABOLIC [id number] 00:00:00 Test Item Value Reference Range Interpretation Comments GLUCOSE (test code = 2217) 386 MG/DL BUN (test code = 2208) 11 MG/DL CREATININE (test code = 2214) 0.77 MG/DL eGFR AMER. (test code 99 ML/MIN/1.73 = 56970) eGFR NON- AMER. (test 86 ML/MIN/1.73 code = 24663) CALC BUN/CREAT (test code = 14 RATIO 2235) SODIUM (test code = 2231) 136 MEQ/L POTASSIUM (test code = 2228) 4.5 MEQ/L CHLORIDE (test code = 2215) 98 MEQ/L CARBON DIOXIDE (test code = 26 MEQ/L 220) CALCIUM (test code = 2209) 9.7 MG/DL PROTEIN, TOTAL (test code = 7.3 G/DL 2228) ALBUMIN (test code = 2201) 4.2 G/DL CALC GLOBULIN (test code = 3.1 G/DL 2240) CALC A/G RATIO (test code = 1.4 RATIO 2234) BILIRUBIN, TOTAL (test code = 0.6 MG/DL 2206) ALKALINE PHOSPHATASE (test 88 U/L code = 2204) AST (test code = 2218) 14 U/L ALT (test code = 2219) 11 U/L COMPREHENSIVE METABOLIC [id number] 00:00:00 Test Item Value Reference Range Interpretation Comments GLUCOSE (test code = 2217) 386 MG/DL BUN (test code = 2208) 11 MG/DL CREATININE (test code = 2214) 0.77 MG/DL eGFR AMER. (test code 99 ML/MIN/1.73 = 39475) eGFR NON- AMER. (test 86 ML/MIN/1.73 code = 17299) CALC BUN/CREAT (test code = 14 RATIO 2235) SODIUM (test code = 2231) 136 MEQ/L POTASSIUM (test code = 2228) 4.5 MEQ/L CHLORIDE (test code = 2215) 98 MEQ/L CARBON DIOXIDE (test code = 26 MEQ/L 2206) CALCIUM (test code = 2209) 9.7 MG/DL PROTEIN, TOTAL (test code = 7.3 G/DL 2228) ALBUMIN (test code = 2201) 4.2 G/DL CALC GLOBULIN (test code = 3.1 G/DL 2240) CALC A/G RATIO (test code = 1.4 RATIO 2234) BILIRUBIN, TOTAL (test code = 0.6 MG/DL 2207) ALKALINE PHOSPHATASE (test 88 U/L code = 2204) AST (test code = 2218) 14 U/L ALT (test code = 2219) 11 U/L
[2022-05-04] MEDS ORDERED: ONDANSETRON 4 MG/2 ML VIAL ONE ×3 (20:16→23:50)
[2022-05-04] MEDS ORDERED: DIAZEPAM 5 MG TABLET ONE (20:16)
[2022-05-04] MEDS ORDERED: dexAMETHasone 10 MG/ML VIAL ONE (20:16)
[2022-05-04] MEDS ORDERED: KETOROLAC 30 MG/ML INJ ONE (20:16)
[2022-05-04] MEDS ORDERED: NA CHLORIDE 0.9% 500 ML ONE (20:16)
[2022-05-04] MEDS ORDERED: MORPHINE 2 MG/ML SYR ONE ×2 (20:16→20:59)
[2022-05-04 20:37] LABS: Urine Blood Trace-lysed (Negative); Urine Glucose 2+ (Negative); Urine Protein Negative (Negative); Urine Specific Gravity 1.015 (1.005-1.030)
[2022-05-04 20:40] LABS: Absolute Lymphocytes (CBC) 2.9 K/uL (0.7-4.9); Hematocrit 41.6 % (36.0-45.0); Lymphocytes % 29.8 % (15.3-44.8); MCV 88.3 fL (80-100); MPV 9.1 fL (7.6-11.3); RBC Red Blood Cell Count 4.72 M/uL (3.86-4.86)
--- NOTE | 2022-05-04 21:05 | RAD REPORT ---
EXAM DESCRIPTION: CT - Spine Lumbar Wo Con - 05/04/2022 8:53 pm CLINICAL HISTORY: Radiculopathy. Lumbar radiculopathy, trauma COMPARISON: Spine Lumbar Wo Con dated 01/09/2022 TECHNIQUE: Axial noncontrast CT imaging of the lumbar spine was performed with coronal and sagittal re-formatted images. All CT scans are performed using dose optimization technique as appropriate and may include automated exposure control or mA/KV adjustment according to patient size. FINDINGS: L5 compression fracture is again seen. Since the 12/30/2021 study, it appears slightly wor se with vertebral body height loss estimated at 25%. Elsewhere, no compression fracture is evident. Mild thickening of the paraspinal soft tissues at the L5 level noted. Significant central canal steno sis is present at the L4-5 level. Moderate lumbosacral degenerative changes. IMPRESSION: Slight worsening of the L5 compression fracture since the prior study. Significant central canal stenosis is present at the L4-5 level.
[2022-05-04 21:16] LABS: Albumin 3.8 g/dL (3.4-5.0); Bilirubin Total 0.2 mg/dL (0.2-1.0); Potassium 4.3 mmol/L (3.5-5.1); Protein, Total 7.3 g/dL (6.4-8.2)
--- NOTE | 2022-05-04 21:31 | EDPHYS ---
Physician Documentation [facility] Name: Chasidy Smith Age: 62 yrs Sex: Female : 1960 Arrival Date: 05/04/2022 Time: 19:31 Bed 11 Private MD: ED Physician Devante Gilliam HPI: 05/04 21:17 This 62 yrs old Female presents to ER via Ambulatory with complaints of Back douglas Pain. 21:17 The patient presents with pain that is acute, and decreased range of motion, and an douglas injury. The symptoms are located in the low back. Onset: The symptoms/episode began/occurred 2 day(s) ago. The pain radiates to the lumbar area, left low back and right low back. Associated signs and symptoms: The patient has no apparent associated signs or symptoms. The problem was sustained during a fall, while standing. Modifying factors: The patient symptoms are alleviated by nothing, the patient symptoms are aggravated by any movement, bending, coughing, lifting, movement. Severity of symptoms: At their worst the symptoms were moderate, in the emergency department the symptoms are unchanged. The patient has experienced a previous episode, approximately 6 months ago. Historical: - Allergies: 20:05 No Known Drug Allergies; hb - PMHx: 19:36 Diabetes - NIDDM; Hypertension; jh5 - Immunization history:: Adult Immunizations up to date. - Social history:: Smoking status: Patient denies any tobacco usage or history of. - Family history:: not pertinent. ROS: 21:17 Constitutional: Negative for fever, chills, and weight loss, Eyes: Negative for injury, douglas pain, redness, and discharge, ENT: Negative for injury, pain, and discharge, Neck: Negative for injury, pain, and swelling, Cardiovascular: Negative for chest pain, palpitations, and edema, Respiratory: Negative for shortness of breath, cough, wheezing, and pleuritic chest pain, Abdomen/GI: Negative for abdominal pain, nausea, vomiting, diarrhea, and constipation, : Negative for injury, bleeding, discharge, and swelling, MS/Extremity: Negative for injury and deformity, Skin: Negative for injury, rash, and discoloration, Neuro: Negative for headache, weakness, numbness, tingling, and seizure, Psych: Negative for depression, anxiety, suicide ideation, homicidal ideation, and hallucinations, Allergy/Immunology: Negative for hives, rash, and allergies, Endocrine: Negative for neck swelling, polydipsia, polyuria, polyphagia, and marked weight changes, Hematologic/Lymphatic: Negative for swollen nodes, abnormal bleeding, and unusual bruising. 21:17 Back: Positive for decreased range of motion, pain at rest, pain with movement, of the lumbar area and right low back. Exam: 21:22 Constitutional: This is a well developed, well nourished patient who is awake, alert, douglas and in no acute distress. Head/Face: Normocephalic, atraumatic. Eyes: Pupils equal round and reactive to light, extra-ocular motions intact. Lids and lashes normal. Conjunctiva and sclera are non-icteric and not injected. Cornea within normal limits. Periorbital areas with no swelling, redness, or edema. ENT: Nares patent. No nasal discharge, no septal abnormalities noted. Tympanic membranes are normal and external auditory canals are clear. Oropharynx with no redness, swelling, or masses, exudates, or evidence of obstruction, uvula midline. Mucous membranes moist. Neck: Trachea midline, no thyromegaly or masses palpated, and no cervical lymphadenopathy. Supple, full range of motion without nuchal rigidity, or vertebral point tenderness. No Meningismus. Chest/axilla: Normal chest wall appearance and motion. Nontender with no deformity. No lesions are appreciated. Cardiovascular: Regular rate and rhythm with a normal S1 and S2. No gallops, murmurs, or rubs. Normal PMI, no JVD. No pulse deficits. Respiratory: Lungs have equal breath sounds bilaterally, clear to auscultation and percussion. No rales, rhonchi or wheezes noted. No increased work of breathing, no retractions or nasal flaring. Abdomen/GI: Soft, non-tender, with normal bowel sounds. No distension or tympany. No guarding or rebound. No evidence of tenderness throughout. Female : Normal external genitalia. Skin: Warm, dry with normal turgor. Normal color with no rashes, no lesions, and no evidence of cellulitis. MS/ Extremity: Pulses equal, no cyanosis. Neurovascular intact. Full, normal range of motion. Neuro: Awake and alert, GCS 15, oriented to person, place, time, and situation. Cranial nerves II-XII grossly intact. Motor strength 5/5 in all extremities. Sensory grossly intact. Cerebellar exam normal. Normal gait. Psych: Awake, alert, with orientation to person, place and time. Behavior, mood, and affect are within normal limits. 21:22 Back: pain, that is moderate, ROM is painful, with flexion, with extension, normal spinal alignment noted, CVA tenderness, is absent, muscle spasm, is appreciated in the left low back, left mid back, right mid back and right low back. Vital Signs: 19:32 BP 168 / 84; Pulse 102; Resp 16; Temp 98.6; Pulse Ox 97% ; Weight 55.34 kg; Height 5 jh5 ft. 0 in. (152.40 cm); Pain 10/10; 20:45 BP 156 / 86; Pulse 89; Resp 15; Pulse Ox 100% on R/A; Pain 9/10; hb 21:57 BP 148 / 88; Pulse 81; Resp 15; Pulse Ox 100% on R/A; hb 23:26 BP 156 / 86; Pulse 84; Resp 17; Pulse Ox 100% on R/A; hb 19:32 Body Mass Index 23.83 (55.34 kg, 152.40 cm) 5 MDM: 19:49 Patient medically screened. [facility] 21:22 Differential diagnosis: Epidural or Perispinal Bleed Fatigue Fracture Hydronephrosis douglas Neoplasm Obesity ruptured disc, Scoliosis spinal injury, sprain, Ureterolithiasis. Data reviewed: vital signs, nurses notes, lab test result(s), radiologic studies, CT scan. Data interpreted: residential monitor: rate is 89 beats/min, rhythm is regular, Pulse oximetry: on room air is 100 %. Counseling: I had a detailed discussion with the patient and/or guardian regarding: the historical points, exam findings, and any diagnostic results supporting the discharge/admit diagnosis, lab results, radiology results, the need to transfer to another facility, for higher level of care, [facility] does not immediately have the required specialist. 05/04 19:54 Order name: CBC with Diff; Complete Time: 21:10 douglas 05/04 19:54 Order name: Comprehensive Metabolic Panel; Complete Time: 21:30 douglas 05/04 20:37 Order name: Urine Dipstick-Ancillary; Complete Time: 21:10 EDMS 05/04 20:43 Order name: Urine Microscopic Only; Complete Time: 23:40 hb 05/04 21:12 Order name: SARS RAPID; Complete Time: 21:58 [facility] 05/04 22:49 Order name: Urine Culture EDMS 05/04 19:54 Order name: CT Lumbar Spine Wo Con; Complete Time: 21:10 [facility] 05/04 23:05 Order name: Glucose, Ancillary Testing; Complete Time: 23:40 EDMS 05/04 19:54 Order name: Urine Dipstick-Ancillary (obtain specimen); Complete Time: 20:43 [facility] Administered Medications: 20:42 Drug: Zofran (Ondansetron) 4 mg Route: IVP; Site: right antecubital; hb 21:22 Follow up: Response: No adverse reaction hb 20:43 Drug: NS 0.9% 500 ml Route: IV; Rate: bolus; Site: right antecubital; hb 21:22 Follow up: Response: No adverse reaction; IV Status: Completed infusion; IV Intake: hb 500ml 20:43 Drug: Ketorolac 15 mg Route: IVP; Site: right antecubital; hb 21:21 Follow up: Response: No adverse reaction hb 20:43 Drug: Decadron - Dexamethasone 10 mg Route: IVP; Site: right antecubital; hb 21:22 Follow up: Response: No adverse reaction hb 20:43 Drug: Valium (diazepam) 5 mg Route: PO; hb 21:22 Follow up: Response: No adverse reaction hb 20:43 Drug: morphine 2 mg Route: IVP; Infused Over: 4 mins; Site: right antecubital; hb 21:40 Follow up: Response: No adverse reaction hb 21:02 Drug: morphine 2 mg Route: IVP; Infused Over: 4 mins; Site: right antecubital; hb 21:21 Follow up: Response: No adverse reaction hb 21:34 Drug: morphine 4 mg Route: IVP; Infused Over: 4 mins; Site: right antecubital; hb 21:56 Follow up: Response: No adverse reaction hb 21:34 Drug: Zofran (Ondansetron) 4 mg Route: IVP; Site: right antecubital; hb 21:56 Follow up: Response: No adverse reaction hb 21:40 Drug: Rocephin (cefTRIAXone) 1 grams Route: IV; Rate: per protocol; Site: right hb antecubital; 21:41 Follow up: Response: No adverse reaction; IV Status: Infusion continued; IV Intake: 10mlhb 21:40 Drug: Insulin Regular Human 8 units {Co-Signature: kd3 (Florina Morrow RN).} Route: IVP; hb Site: right antecubital; 23:07 Follow up: Response: Blood sugar is lowered hb 23:07 Not Given (NOT AVAILABLE IN Ele): Semaglutide Pen Injector 35 units Sub-Q once hb 23:45 Drug: Dilaudid (HYDROmorphone) 1 mg Route: IVP; Site: right antecubital; hb 23:46 Follow up: Response: Medication administered at discharge. hb 23:45 Drug: Zofran (Ondansetron) 4 mg Route: IVP; Site: right antecubital; hb 23:46 Follow up: Response: Medication administered at discharge. hb Disposition Summary: 05/04/22 21:29 Transfer Ordered Transfer Location: [facility] douglas Reason: Higher level of care douglas Condition: Stable douglas Problem: new douglas Symptoms: have improved douglas Accepting Physician: to [facility](05/04/22 23:46) hb Diagnosis - Fall on same level, unspecified douglas - Fracture of fifth lumbar vertebra - compression fracture , significant canal douglas stenosis present, L4-L5 - UTI/ Urinary tract infection, site not specified douglas - Type 2 diabetes mellitus with hyperglycemia douglas Forms: - Medication Reconciliation Form douglas - SBAR form douglas Signatures: Dispatcher [employer] EDDevante Bingham MD MD cha Baxter, Heather RN RN Dolores Mary RN RN jh5 Florina Morrow RN kd3 Corrections: (The following items were deleted from the chart) 23:46 21:29 to [facility] douglas hb
--- NOTE | 2022-05-04 21:31 | ER ---
Nurse's Notes [facility] Name: Chasidy Smith Age: 62 yrs Sex: Female : 1960 Arrival Date: 05/04/2022 Time: 19:31 Bed 11 Private MD: Diagnosis: Fall on same level, unspecified;Fracture of fifth lumbar vertebra-compression fracture , significant canal stenosis present, L4-L5;UTI/ Urinary tract infection, site not specified;Type 2 diabetes mellitus with hyperglycemia Presentation: 05/04 19:32 Chief complaint: Patient states: In December 2021 pt fell and was dx with back frature; jh5 fell on Tuesday and is having severe back pain with radiation to left leg and trouble walking. Coronavirus screen: Vaccine status: Patient reports receiving the 2nd dose of the covid vaccine. Client denies travel out of the [place] in the last 14 days. Ebola Screen: Patient negative for fever greater than or equal to 101.5 degrees Fahrenheit, and additional compatible Ebola Virus Disease symptoms Patient denies exposure to infectious person. Patient denies travel to an Ebola-affected area in the 21 days before illness onset. Initial Sepsis Screen: Does the patient meet any 2 criteria? No. Patient's initial sepsis screen is negative. Does the patient have a suspected source of infection? No. Patient's initial sepsis screen is negative. Risk Assessment: Do you want to hurt yourself or someone else? Patient reports no desire to harm self or others. Onset of symptoms was May 02, 2022. 19:32 Method Of Arrival: Ambulatory [facility] 19:32 Acuity: RYAN 3 5 Triage Assessment: 19:36 General: Appears uncomfortable, slender, well groomed, well developed, Behavior is jh5 calm, cooperative, appropriate for age. Pain: Complains of pain in back. Musculoskeletal: Circulation, motion, and sensation intact. Capillary refill < 3 seconds, Range of motion: limited in left hip, left knee and left ankle. Historical: - Allergies: 20:05 No Known Drug Allergies; hb - PMHx: 19:36 Diabetes - NIDDM; Hypertension; jh5 - Immunization history:: Adult Immunizations up to date. - Social history:: Smoking status: Patient denies any tobacco usage or history of. - Family history:: not pertinent. Screenin:45 Abuse screen: Denies threats or abuse. Denies injuries from another. Nutritional hb screening: No deficits noted. Tuberculosis screening: No symptoms or risk factors identified. Fall Risk Total Young Fall Scale indicates Low Risk Score (25-44 pts). Fall prevention measures have been instituted. Frequent Obs/Assesments occuring Family Present and informed to notify staff if they need to leave bedside As available Patient and Family Educated on Fall Prevention Program and strategies. Assessment: 20:44 General: Appears in no apparent distress. uncomfortable, Behavior is calm, cooperative. hb Pain: Pain currently is 9 out of 10 on a pain scale. Neuro: Level of Consciousness is awake, alert, obeys commands, Oriented to person, place, time, situation. Cardiovascular: Patient's skin is warm and dry. Respiratory: Respiratory effort is even, unlabored, Respiratory pattern is regular, symmetrical. GI: No signs and/or symptoms were reported involving the gastrointestinal system. : No signs and/or symptoms were reported regarding the genitourinary system. EENT: No signs and/or symptoms were reported regarding the EENT system. Derm: Skin is pink, warm \T\ dry. Musculoskeletal: Reports severe acute on chronic mid back pain that radiates to bilateral posterior legs. 21:40 Reassessment: Patient appears in no apparent distress at this time. Patient and/or hb family updated on plan of care and expected duration. Pain level reassessed. Patient is alert, oriented x 3, equal unlabored respirations, skin warm/dry/pink. 23:26 Reassessment: Patient appears in no apparent distress at this time. Patient and/or hb family updated on plan of care and expected duration. Pain level reassessed. Patient is alert, oriented x 3, equal unlabored respirations, skin warm/dry/pink. Vital Signs: 19:32 BP 168 / 84; Pulse 102; Resp 16; Temp 98.6; Pulse Ox 97% ; Weight 55.34 kg; Height 5 jh5 ft. 0 in. (152.40 cm); Pain 10/10; 20:45 BP 156 / 86; Pulse 89; Resp 15; Pulse Ox 100% on R/A; Pain 9/10; hb 21:57 BP 148 / 88; Pulse 81; Resp 15; Pulse Ox 100% on R/A; hb 23:26 BP 156 / 86; Pulse 84; Resp 17; Pulse Ox 100% on R/A; hb 19:32 Body Mass Index 23.83 (55.34 kg, 152.40 cm) [facility] ED Course: 19:31 Patient arrived in ED. bp1 19:36 Triage completed. 5 19:36 Arm band placed on right wrist. [facility] 19:49 Devante Gilliam MD is Attending Physician. douglas 20:04 Valorie Little, RADHA is Primary Nurse. hb 20:24 Inserted saline lock: 20 gauge in right antecubital area, using aseptic technique. hb Blood collected. 20:42 Patient has correct armband on for positive identification. hb 20:55 CT Lumbar Spine Wo Con In Process Unspecified. EDMS 21:16 initiated a transfer with An Sánchez from [facility] [place]. mw2 21:26 SARS RAPID Sent. kd3 21:[address] Gilliam with Dr. Funk from [facility]. mw2 21:[address] Gilliam with Dr. Alaniz from [facility]. 2 22:32 administrative approval given by An Sánchez/ patient has been accepted to [address] bed 2219/Dr. Alaniz accepted the patient in transfer/report to be called to [phone]. 23:27 No provider procedures requiring assistance completed. Patient transferred, IV remains hb in place. Administered Medications: 20:42 Drug: Zofran (Ondansetron) 4 mg Route: IVP; Site: right antecubital; hb 21:22 Follow up: Response: No adverse reaction hb 20:43 Drug: NS 0.9% 500 ml Route: IV; Rate: bolus; Site: right antecubital; hb 21:22 Follow up: Response: No adverse reaction; IV Status: Completed infusion; IV Intake: hb 500ml 20:43 Drug: Ketorolac 15 mg Route: IVP; Site: right antecubital; hb 21:21 Follow up: Response: No adverse reaction hb 20:43 Drug: Decadron - Dexamethasone 10 mg Route: IVP; Site: right antecubital; hb 21:22 Follow up: Response: No adverse reaction hb 20:43 Drug: Valium (diazepam) 5 mg Route: PO; hb 21:22 Follow up: Response: No adverse reaction hb 20:43 Drug: morphine 2 mg Route: IVP; Infused Over: 4 mins; Site: right antecubital; hb 21:40 Follow up: Response: No adverse reaction hb 21:02 Drug: morphine 2 mg Route: IVP; Infused Over: 4 mins; Site: right antecubital; hb 21:21 Follow up: Response: No adverse reaction hb 21:34 Drug: morphine 4 mg Route: IVP; Infused Over: 4 mins; Site: right antecubital; hb 21:56 Follow up: Response: No adverse reaction hb 21:34 Drug: Zofran (Ondansetron) 4 mg Route: IVP; Site: right antecubital; hb 21:56 Follow up: Response: No adverse reaction hb 21:40 Drug: Rocephin (cefTRIAXone) 1 grams Route: IV; Rate: per protocol; Site: right hb antecubital; 21:41 Follow up: Response: No adverse reaction; IV Status: Infusion continued; IV Intake: 10mlhb 21:40 Drug: Insulin Regular Human 8 units {Co-Signature: kd3 (Florina Morrow RN).} Route: IVP; hb Site: right antecubital; 23:07 Follow up: Response: Blood sugar is lowered hb 23:07 Not Given (NOT AVAILABLE IN Ele): Semaglutide Pen Injector 35 units Sub-Q once hb 23:45 Drug: Dilaudid (HYDROmorphone) 1 mg Route: IVP; Site: right antecubital; hb 23:46 Follow up: Response: Medication administered at discharge. hb 23:45 Drug: Zofran (Ondansetron) 4 mg Route: IVP; Site: right antecubital; hb 23:46 Follow up: Response: Medication administered at discharge. hb Medication: 23:26 VIS not applicable for this client. hb Intake: 21:22 IV: 500ml; Total: 500ml. hb 21:41 IV: 10ml; Total: 510ml. hb Outcome: 21:29 ER care complete, transfer ordered by MD. cole 23:26 Transferred by ground EMS to [facility]. hb 23:26 Condition: stable 23:26 Instructed on the need for transfer, Demonstrated understanding of instructions. 23:46 Patient left the ED. hb Signatures: Dispatcher [employer] Devante Silva MD MD cha Baxter, Heather, RN RN hb Eliza, CarolLauren mw2 Renetta London Jessica, RN RN jh5 Florina Morrow RN RN kd3 Florina Morrow RN kd3
[2022-05-04] MEDS ORDERED: MORPHINE 4 MG/ML SYR ONE (21:35)
[2022-05-04] MEDS ORDERED: CEFTRIAXONE 1000 MG/VIAL ONE (21:35)
[2022-05-04] MEDS ORDERED: INSULIN -REGULAR HUMAN 50 UNIT/0.5 ML ML ONE (21:46)
[2022-05-04 21:55] LABS: SARS-CoV-2 Antigen Rapid Res Negative (Negative)
[2022-05-04 22:46] LABS: Urine Bacteria >50 /HPF (<20); Urine RBC <5 /HPF (None Seen)
[2022-05-04] MEDS ORDERED: HYDROMORPHONE HCL 1 MG/ML INJ ONE (23:50)
[2022-05-05 01:40] VITALS: TEMP 98.6
[2022-05-05 01:42] VITALS: O2SAT 100
[2022-05-05 01:46] VITALS: BP 156/86
== END 2022-05-04 23:46 | disposition short-term general hospital (02) ==
LOC: ER 19:20
DX: S32.059A Unspecified fracture of fifth lumbar vertebra, initial encounter for closed fracture (principal); N39.0 Urinary tract infection, site not specified; E11.65 Type 2 diabetes mellitus with hyperglycemia; I10 Essential (primary) hypertension; Z20.822 Contact with and (suspected) exposure to COVID-19
CPT/HCPCS: 87088; 85025; 87086; 36415; 82947; 80053; 72131; 87811; J1815; J1100; J2270 ×2; J1170; J7040; J2405 ×3; 81003; 81015

== ENCOUNTER 2022-10-11 12:42 | Emergency (ER) | payer OTHER, SELFPAY ==
--- OUTSIDE RECORDS SUMMARY | 2022-10-11 13:03 | XMS REPORT | Continuity of Care Document ---
:1960 Author Organization [facility] t Address [address] [place] [address] Care Team Providers Name Role Phone Unknown, Physician Primary Care Physician Unavailable FRANCO COLON Attending Clinician Unavailable GAMAL FRANCISCO Attending Clinician Unavailable Corbin GALLAGHER, Candi Martin Attending Clinician Lenore GALLAGHER, Alexei Herbert Attending Clinician [phone] Jahaira Rangel MD Attending Clinician [phone] JAHAIRA RANGEL Attending Clinician Unavailable KEI HIRSCH Attending Clinician Unavailable ANDREW GARCIA Attending Clinician Unavailable Jr GALLAGHER, Kaiser aRchel Attending Clinician Scooter GALLAGHER, Franklin Funk Attending Clinician [phone] French GALLAGHER, Poppy Reese Attending Clinician [phone] Radha GALLAGHER, Andrew Virginia Attending Clinician Casie Humphries MD Attending Clinician CASIE HUMPHRIES Attending Clinician Unavailable Ed Abraham MD Attending Clinician ALEXEI GROVER Admitting Clinician Unavailable POPPY ESPINOZA Admitting Clinician Unavailable Payers Payer Name Policy Type Policy Number Effective Date Expiration Date S jeyson [facility] [id number] 2021 [employer] 00:00:00 MEDICAID [place] PENDING 2020 PENDING 00:00:00 Problems Condition Condition Condition Status Onset Resolution Last Treating Co mments Source Name Details Category Date Date Treatment Clinician Date Compressio Compressio Disease Active C [facility] fracture n fracture 01-10 Suzanne kes of L5 of [facility]5 00:00: Medical vertebra vertebra 00 Center Allergies, Adverse Reactions, Alerts Allergy Allergy Status Severity Reaction(s) Onset Inactive Treating Comm ents Source Name Type Date Date Clinician NO KNOWN Drug Active Univers ALLERGIE Class it[facility] of [facility] NO KNOWN Allergy Active [facility] ALLERGIE S Social History Social Habit Start Date Stop Date Quantity Comments Source History SDOH [facility] Alcohol Comment Medical C enter History SDOH [facility] Transport Non-Med Medical Center History SDOH [facility] Alcohol Std Drinks Medica l Center History SDOH [facility] Alcohol Binge Medical Sarah ter Exposure to 2022-06-12 2022-06-22 Not sure [facility] SARS-CoV-2 (event) 00:00:00 10:23:00 History SDDC 2022-05-05 2022-05-[address] [facility] Housing Unable to 00:00:00 00:00:00 Medical Center Pay History SDOH 2022-05-05 2022-05-[address] [facility] Housing Homeless 00:00:00 00:00:00 Medical Center Last Year Alcohol intake 2022-05-05 2022-05-[address] [facility] 00:[facility] 00:00:00 non-drinker Medical Cente r (finding) History [facility] 2022-05-05 2022-05-[address] [facility] Alcohol Frequency 00:00:00 00:00:00 Medical Center Tobacco use and 2022-01-16 2022-01-[address] [facility] [address] [facility] kes exposure 00:00:00 00:00:00 Medical Center History [facility] 2022-01-11 2022-01-[address] [facility] Med 00:00:00 00:00:[address] History SDDC 2022-01-10 2022-01-10 1 [facility] 00[facility] 00:00:00 Medical Ce nter Lived Sex Ass[birth year] At [birth year] [facility] 00:00:00 00:00:00 Medical Center Smoking Status Start Date Stop Date Source Never smoked tobacco [facility] Medications Ordered Filled Start Stop Current Ordering Indication Dosage Frequency Signature Comments Components Source Medication Medication Date Date Medication? Clinician (SIG) Name Name Dose 2021-09 No Unknown 2-12 00:00: 00 INJECT 8 2021-09 No 100 UNITS WITH 2-12 MEALS THREE 00:00: TIMES DAILY 00 Dose 2021-09 No Unknown 2-12 00:00: 00 TAKE 2021-09 No 10 TABLET BY 2-12 MOUTH AT 00:00: BEDTIME 00 NEEDED INJECT 33 2021-09 No 100 UNITS DAILY 2-12 00:00: 00 Dose 2021-09 No Unknown 2-12 00:00: 00 TAKE 1 2021-09 No 40 TABLET BY 2-12 MOUTH DAILY 00:00: 00 Dose 2021-09 No Unknown 2-12 00:00: 00 TAKE 1-2 2021-09 No 100 CAPSULES 2-12 EVERY 12 00:00: HOURS 00 DIRECTED. TAKE 1 2021-09 [place] [id number] TABLET 2-12 DAILY. 00:00: 00 Dose 2021-09 No Unknown 2-12 00:00: 00 Dose 2021-09 No Unknown 2-12 00:00: 00 Dose 2021-09 No Unknown 2-12 00:00: 00 Dose 2021-09 No Unknown 2-12 00:00: 00 INJECT 8 2021-09 No 100 UNITS WITH 2-12 MEALS THREE 00:00: TIMES DAILY 00 Dose 2021-09 No Unknown 2-12 00:00: 00 TAKE 2021-09 No 10 TABLET BY 2-12 MOUTH AT 00:00: BEDTIME 00 NEEDED INJECT 33 2021-09 No 100 UNITS DAILY 2-12 00:00: 00 Dose 2021-1 No Unknown 2-12 00:00: 00 TAKE 1 2021-1 No 40 TABLET BY 2-12 MOUTH DAILY 00:00: 00 Dose 2021-1 No Unknown 2-12 00:00: 00 TAKE 1-2 2021-1 No 100 CAPSULES 2-12 EVERY 12 00:00: HOURS 00 DIRECTED. TAKE 1 2021-1 No [id number] TABLET 2-12 DAILY. 00:00: 00 Dose 2021-1 No Unknown 2-12 00:00: 00 Dose 2021-1 No Unknown 2-12 00:00: 00 Dose 2021-1 No Unknown 2-12 00:00: 00 TAKE 1 2021-1 No TABLET BY 1-23 MOUTH DAILY 00:00: 00 TAKE 1 2021-1 No TABLET BY 1-23 MOUTH DAILY 00:00: 00 TAKE 1 2021-1 No TABLET BY 1-23 MOUTH DAILY 00:00: 00 INJECT 8 2021-0 No 100 UNITS WITH 9-07 MEALS THREE 00:00: TIMES DAILY 00 INJECT 8 2021-0 No UNITS WITH 9-07 MEALS THREE 00:00: TIMES DAILY 00 INJECT 8 2021-0 No UNITS WITH 9-07 MEALS THREE 00:00: TIMES DAILY 00 INJECT 8 2021-0 No UNITS WITH 9-07 MEALS THREE 00:00: TIMES DAILY 00 INJECT 8 2021-0 No UNITS WITH 9-07 MEALS THREE 00:00: TIMES DAILY 00 meloxicam 2021-0 Yes 7.5mg Take 7.[address] [facility] (MOBIC) 7.5 8-25 mg by [facility] tablet 16:52: mouth 2 Medic al 00 (two) Center times daily as needed for Pain. traMADoL 2021-0 Yes 50mg Take [address] [facility] (ULTRAM) 50 8-25 by mouth Luke [facility] mg tablet 16:52: every 6 Medic al 00 (six) Center hours as needed for Pain. meloxicam 2021-0 Yes 7.5mg Take 7.[address] [facility] [address] (MOBIC) 7.5 8-25 mg by [facility] MG tablet 16:52: mouth 2 Medic al 00 (two) Center times daily as needed for Pain. traMADoL 2021-0 Yes 50mg Take [address] [facility] (ULTRAM) 50 8-25 by mouth Luke [facility] mg tablet 16:52: every 6 Medic al 00 (six) Center hours as needed for Pain. meloxicam 2022-0 Yes 7.5mg Take 7.[address] [facility] (MOBIC) 7.5 8-25 mg by [facility] MG tablet 16:52: mouth 2 Medic al 00 (two) Center times daily as needed for Pain. traMADoL 2022-0 Yes 50mg Take [address] [address] (ULTRAM) 50 8-25 by mouth Luke s mg tablet 16:52: every 6 Medic al 00 (six) Center hours as needed for Pain. meloxicam 2022-0 Yes 7.5mg Take 7.[address] [facility] (MOBIC) 7.5 8-25 mg by [facility] MG tablet 16:52: mouth 2 Medic al 00 (two) Center times daily as needed for Pain. traMADoL 2022-0 Yes 50mg Take [address] [facility] [address] (ULTRAM) 50 8-25 by mouth Luke [facility] mg tablet 16:52: every 6 Medic al 00 (six) Center hours as needed for Pain. meloxicam 2022-0 Yes 7.5mg Take 7.[address] [facility] [address] (MOBIC) 7.5 8-25 mg by [facility]ukes MG tablet 16:52: mouth 2 Medic al 00 (two) Center times daily as needed for Pain. traMADoL 2022-0 Yes 50mg Take [address] [facility] [address] (ULTRAM) 50 8-25 by mouth Luke [facility] mg tablet 16:52: every 6 Medic al 00 (six) Center hours as needed for Pain. meloxicam 2022-0 Yes 7.5mg Take 7.[address] [facility] (MOBIC) 7.5 8-25 mg by [facility] MG tablet 16:52: mouth 2 Medic al 00 (two) Center times daily as needed for Pain. traMADoL 2022-0 Yes 50mg Take [address] [facility] [address] (ULTRAM) 50 8-25 by mouth Luke [facility] mg tablet 16:52: every 6 Medic al 00 (six) Center hours as needed for Pain. meloxicam 2022-0 Yes 7.5mg Take 7.[address] [facility] (MOBIC) 7.5 8-25 mg by [facility]ukes MG tablet 16:52: mouth 2 Medic al 00 (two) Center times daily as needed for Pain. traMADoL 2022-0 Yes 50mg Take [address] [address] (ULTRAM) 50 8-25 by mouth Luke s mg tablet 16:52: every 6 Medic al 00 (six) Center hours as needed for Pain. meloxicam 2022-0 Yes 7.5mg Take 7.[address] (MOBIC) 7.5 8-25 mg by [facility]ukes MG tablet 16:52: mouth 2 Medic al 00 (two) Center times daily as needed for Pain. traMADoL 2022-0 Yes 50mg Take [address] [address] (ULTRAM) 50 8-25 by mouth Luke s mg tablet 16:52: every 6 Medic al 00 (six) Center hours as needed for Pain. meloxicam 2022-0 Yes 7.5mg Take 7.[address] (MOBIC) 7.5 8-25 mg by [facility]ukes MG tablet 16:52: mouth 2 Medic al 00 (two) Center times daily as needed for Pain. traMADoL 2-0 Yes 50mg Take [address] [facility] [address] (ULTRAM) 50 8-25 by mouth Luke s mg tablet 16:52: every 6 Medic al 00 (six) Center hours as needed for Pain. meloxicam 2022-0 Yes 7.5mg Take 7.[address] (MOBIC) 7.5 8-25 mg by [facility] MG tablet 16:52: mouth 2 Medic al 00 (two) Center times daily as needed for Pain. traMADoL 2-0 Yes 50mg Take [address] [address] (ULTRAM) 50 8-25 by mouth Luke s mg tablet 16:52: every 6 Medic al 00 (six) Center hours as needed for Pain. meloxicam 2022-0 Yes 7.5mg Take 7.[address] (MOBIC) 7.5 8-25 mg by [facility]ukes MG tablet 16:52: mouth 2 Medic al 00 (two) Center times daily as needed for Pain. traMADoL 2022-0 Yes 50mg Take [address] (ULTRAM) 50 8-25 by mouth Luke s mg tablet 16:52: every 6 Medic al 00 (six) Center hours as needed for Pain. meloxicam 2022-0 Yes 7.5mg Take 7.[address] [facility] (MOBIC) 7.5 8-25 mg by [facility]ukes MG tablet 16:52: mouth 2 Medic al 00 (two) Center times daily as needed for Pain. traMADoL 2022-0 Yes 50mg Take [address] [facility] [address] (ULTRAM) 50 8-25 by mouth Luke s mg tablet 16:52: every 6 Medic al 00 (six) Center hours as needed for Pain. meloxicam 2021-0 Yes 7.5mg Take 7.[address] (MOBIC) 7.5 8-25 mg by [facility]ukes MG tablet 16:52: mouth 2 Medic al 00 (two) Center times daily as needed for Pain. traMADoL 2021-0 Yes 50mg Take [address] [facility] [address] (ULTRAM) 50 8-25 by mouth Luke s mg tablet 16:52: every 6 Medic al 00 (six) Center hours as needed for Pain. meloxicam 2021-0 Yes 7.5mg Take 7.[address] (MOBIC) 7.5 8-25 mg by [facility] MG tablet 16:52: mouth 2 Medic al 00 (two) Center times daily as needed for Pain. traMADoL 2021-0 Yes 50mg Take [address] [facility] (ULTRAM) 50 8-25 by mouth Luke [facility] mg tablet 16:52: every 6 Medic al 00 (six) Center hours as needed for Pain. meloxicam 2021-0 Yes 7.5mg Take 7.[address] [facility] (MOBIC) 7.5 8-25 mg by [facility] MG tablet 16:52: mouth 2 Medic al 00 (two) Center times daily as needed for Pain. traMADoL 2021-0 Yes 50mg Take [address] [facility] [address] (ULTRAM) 50 8-25 by mouth Luke s mg tablet 16:52: every 6 Medic al 00 (six) Center hours as needed for Pain. meloxicam 2021-0 Yes 7.5mg Take 7.[address] [facility] [address] (MOBIC) 7.5 8-25 mg by [facility] MG tablet 16:52: mouth 2 Medic al 00 (two) Center times daily as needed for Pain. traMADoL 2021-0 Yes 50mg Take [address] [facility] (ULTRAM) 50 8-25 by mouth Luke s mg tablet 16:52: every 6 Medic al 00 (six) Center hours as needed for Pain. metFORMIN 2021-0 2021- No 1000mg Take 1,[address] [facility] (GLUCOPHAGE 8-25 08-25 mg by [facility]ukes ) 1000 MG 12:53: 00:00 mouth 2 Medi devan tablet 56 :00 (two) Center times daily with breakfast and dinner. metFORMIN 2021-0 2022- No 1000mg Take 1,[address] (GLUCOPHAGE 8-25 08-25 mg by [facility] ) 1000 MG 12:53: 00:00 mouth 2 Medi devan tablet 56 :00 (two) Center times daily with breakfast and dinner. metFORMIN 2021-0 2021- No 1000mg Take 1,[address] (GLUCOPHAGE 8-25 08-25 mg by [facility] ) 1000 MG 12:53: 00:00 mouth 2 Medi devan tablet 56 :00 (two) Center times daily with breakfast and dinner. metFORMIN 2021-0 2021- No 1000mg Take 1,[address] (GLUCOPHAGE 8-25 08-25 mg by [facility] ) 1000 MG 12:53: 00:00 mouth 2 Medi devan tablet 56 :00 (two) Center times daily with breakfast and dinner. metFORMIN 2021-0 2021- No 1000mg Take 1,[address] (GLUCOPHAGE 8-25 08-25 mg by [facility] ) 1000 MG 12:53: 00:00 mouth 2 Medi devan tablet 56 :00 (two) Center times daily with breakfast and dinner. metFORMIN 2021-0 2021- No 1000mg Take 1,[address] (GLUCOPHAGE 8-25 08-25 mg by [facility] ) 1000 MG 12:53: 00:00 mouth 2 Medi devan tablet 56 :00 (two) Center times daily with breakfast and dinner. metFORMIN 2021-0 2021- No 1000mg Take 1,[address] (GLUCOPHAGE 8-25 08-25 mg by [facility] ) 1000 MG 12:53: 00:00 mouth 2 Medi devan tablet 56 :00 (two) Center times daily with breakfast and dinner. metFORMIN 2021-0 2021- No 1000mg Take 1,[address] (GLUCOPHAGE 8-25 08-25 mg by [facility] ) 1000 MG 12:53: 00:00 mouth 2 Medi devan tablet 56 :00 (two) Center times daily with breakfast and dinner. metFORMIN 2021-0 2021- No 1000mg Take 1,[address] (GLUCOPHAGE 8-25 08-25 mg by [facility] ) 1000 MG 12:53: 00:00 mouth 2 Medi devan tablet 56 :00 (two) Center times daily with breakfast and dinner. metFORMIN 2021-0 2- No 1000mg Take 1,[address] (GLUCOPHAGE 8-25 08-25 mg by [facility] ) 1000 MG 12:53: 00:00 mouth 2 Medi devan tablet 56 :00 (two) Center times daily with breakfast and dinner. metFORMIN 2021-2021- No 1000mg Take 1,[address] (GLUCOPHAGE 8-25 08-25 mg by [facility] ) 1000 MG 12:53: 00:00 mouth 2 Medi devan tablet 56 :00 (two) Center times daily with breakfast and dinner. metFORMIN 2021-0 2021- No 1000mg Take 1,[address] (GLUCOPHAGE 8-25 08-25 mg by [facility] ) 1000 MG 12:53: 00:00 mouth 2 Medi devan tablet 56 :00 (two) Center times daily with breakfast and dinner. metFORMIN 2021-2021- No 1000mg Take 1,[address] (GLUCOPHAGE 8-25 08-25 mg by [facility] ) 1000 MG 12:53: 00:00 mouth 2 Medi devan tablet 56 :00 (two) Center times daily with breakfast and dinner. metFORMIN 2021-2021- No 1000mg Take 1,[address] (GLUCOPHAGE 8-25 08-25 mg by [facility] ) 1000 MG 12:53: 00:00 mouth 2 Medi devan tablet 56 :00 (two) Center times daily with breakfast and dinner. metFORMIN 2021-2021- No 1000mg Take 1,[address] (GLUCOPHAGE 8-25 08-25 mg by [facility] ) 1000 MG 12:53: 00:00 mouth 2 Medi devan tablet 56 :00 (two) Center times daily with breakfast and dinner. metFORMIN 2021-2021- No 1000mg Take 1,[address] (GLUCOPHAGE 8-25 08-25 mg by [facility] ) 1000 MG 12:53: 00:00 mouth 2 Medi devan tablet 56 :00 (two) Center times daily with breakfast and dinner. metFORMIN 2021- Yes 1000mg Take [address] [facility] (GLUCOPHAGE 8-25 tablet [facility] ) 1000 MG 00:00: (1,000 mg Med ical tablet 00 total) by Center mouth 2 (two) times daily with breakfast and dinner. needles, Yes 1{appli Q.5D [address] [facility] insulin 8-25 cation} applicatio [facility] disposable 00:00: n by Medical (Insulin 00 Miscellane Cente r Pen ous route [place]) 2 (two) Ndle times daily. blood sugar Yes 1{appli Q.[id number] [address] [facility] diagnostic 8-25 cation} [id number] [facility] (glucose 00:00: 3D n by Medical blood) Strp 00 Miscellane Ce nter ous route 3 (three) times daily. metFORMIN 2021- Yes 1000mg Take [address] [facility] (GLUCOPHAGE 8-25 tablet [facility] ) 1000 MG 00:00: (1,000 mg Med ical tablet 00 total) by Center mouth 2 (two) times daily with breakfast and dinner. needles, Yes 1{appli Q.5D [address] insulin 8-25 cation} applicatio [place] [facility] disposable 00:00: n by Medical (Insulin 00 Miscellane Cente r Pen ous route [place]) 2 (two) Ndle times daily. blood sugar Yes 1{appli Q.[id number] [address] [facility] diagnostic 8-25 cation} [id number] [facility] (glucose 00:00: 3D n by Medical blood) Strp 00 Miscellane Ce nter ous route 3 (three) times daily. metFORMIN Yes 1000mg Take [address] [facility] (GLUCOPHAGE 8-25 tablet [facility] ) 1000 MG 00:00: (1,000 mg Med ical tablet 00 total) by Center mouth 2 (two) times daily with breakfast and dinner. needles, Yes 1{appli Q.5D [address] insulin 8-25 cation} applicatio [place] [facility] disposable 00:00: n by Medical (Insulin 00 [facility]ellane Cente r Pen ous route [place]) 2 (two) Ndle times daily. blood sugar Yes 1{appli Q.[id number] [address] [facility] [address] diagnostic 8-25 cation} [id number] [facility] (glucose 00:00: 3D n by Medical blood) Strp 00 Miscellane Ce nter ous route 3 (three) times daily. metFORMIN 2021- Yes 1000mg Take [address] [facility] (GLUCOPHAGE 8-25 tablet [facility] ) 1000 MG 00:00: (1,000 mg Med ical tablet 00 total) by Center mouth 2 (two) times daily with breakfast and dinner. needles, Yes 1{appli Q.5D [address] insulin 8-25 cation} applicatio [place] [facility] disposable 00:00: n by Medical (Insulin 00 Miscellane Cente r Pen ous route [place]) 2 (two) Ndle times daily. blood sugar Yes 1{appli Q.[id number] [address] [facility] [address] diagnostic 8-25 cation} [id number] [facility] (glucose 00:00: 3D n by Medical blood) Strp 00 Miscellane Ce nter ous route 3 (three) times daily. metFORMIN Yes 1000mg Take [address] [facility] (GLUCOPHAGE 8-25 tablet [facility] ) 1000 MG 00:00: (1,000 mg Med ical tablet 00 total) by Center mouth 2 (two) times daily with breakfast and dinner. needles, Yes 1{appli Q.5D [address] insulin 8-25 cation} applicatio [place] [facility] disposable 00:00: n by Medical (Insulin 00 [facility]iscellane Cente r Pen ous route [place]) 2 (two) Ndle times daily. blood sugar Yes 1{appli Q.08011299 [address] [facility] diagnostic 8-25 cation} [id number] [facility] (glucose 00:00: 3D n by Medical blood) Strp 00 Miscellane Ce nter ous route 3 (three) times daily. metFORMIN Yes 1000mg Take [address] [facility] (GLUCOPHAGE 8-25 tablet [facility] ) 1000 MG 00:00: (1,000 mg Med ical tablet 00 total) by Center mouth 2 (two) times daily with breakfast and dinner. needles, Yes 1{appli Q.5D [address] insulin 8-25 cation} applicatio [place] [facility] disposable 00:00: n by Medical (Insulin 00 [facility]ellane Cente r Pen ous route [place]) 2 (two) Ndle times daily. blood sugar Yes 1{appli Q.[id number] [address] [facility] [address] diagnostic 8-25 cation} [id number] [facility] (glucose 00:00: 3D n by Medical blood) Strp 00 Miscellane Ce nter ous route 3 (three) times daily. metFORMIN Yes 1000mg Take [address] [facility] (GLUCOPHAGE 8-25 tablet [facility] ) 1000 MG 00:00: (1,000 mg Med ical tablet 00 total) by Center mouth 2 (two) times daily with breakfast and dinner. needles, Yes 1{appli Q.5D [address] insulin 8-25 cation} applicatio [place] [facility] disposable 00:00: n by Medical (Insulin 00 [facility]ellane Cente r Pen ous route [place]) 2 (two) Ndle times daily. blood sugar Yes 1{appli Q.[id number] [address] [facility] diagnostic 8-25 cation} [id number] [facility] (glucose 00:00: 3D n by Medical blood) Strp 00 Miscellane Ce nter ous route 3 (three) times daily. metFORMIN Yes 1000mg Take [address] [facility] (GLUCOPHAGE 8-25 tablet [facility] ) 1000 MG 00:00: (1,000 mg Med ical tablet 00 total) by Center mouth 2 (two) times daily with breakfast and dinner. needles, Yes 1{appli Q.5D [address] insulin 8-25 cation} applicatio [place] [facility] disposable 00:00: n by Medical (Insulin 00 Miscellane Cente r Pen ous route [place]) 2 (two) Ndle times daily. blood sugar Yes 1{appli Q.44030029 [address] [facility] [address] diagnostic 8-25 cation} [id number] [facility] (glucose 00:00: 3D n by Medical blood) Strp 00 Miscellane Ce nter ous route 3 (three) times daily. metFORMIN Yes 1000mg Take [address] [facility] (GLUCOPHAGE 8-25 tablet [facility] ) 1000 MG 00:00: (1,000 mg Med ical tablet 00 total) by Center mouth 2 (two) times daily with breakfast and dinner. needles, Yes 1{appli Q.5D [address] insulin 8-25 cation} applicatio [facility] disposable 00:00: n by Medical (Insulin 00 Miscellane Cente r Pen ous route [place]) 2 (two) Ndle times daily. blood sugar Yes 1{appli Q.18769905 [address] [facility] [address] diagnostic 8-25 cation} [id number] [facility] (glucose 00:00: 3D n by Medical blood) Strp 00 Miscellane Ce nter ous route 3 (three) times daily. metFORMIN Yes 1000mg Take [address] [facility] (GLUCOPHAGE 8-25 tablet [facility] ) 1000 MG 00:00: (1,000 mg Med ical tablet 00 total) by Center mouth 2 (two) times daily with breakfast and dinner. needles, Yes 1{appli Q.5D [address] insulin 8-25 cation} applicatio [facility] [facility] disposable 00:00: n by Medical (Insulin 00 Miscellane Cente r Pen ous route [place]) 2 (two) Ndle times daily. blood sugar Yes 1{appli Q.[id number] [address] [facility] [address] diagnostic 8-25 cation} [id number] [facility] (glucose 00:00: 3D n by Medical blood) Strp 00 Miscellane Ce nter ous route 3 (three) times daily. metFORMIN Yes 1000mg Take [address] [facility] (GLUCOPHAGE 8-25 tablet [facility] ) 1000 MG 00:00: (1,000 mg Med ical tablet 00 total) by Center mouth 2 (two) times daily with breakfast and dinner. needles, Yes 1{appli Q.5D [address] insulin 8-25 cation} applicatio [facility] disposable 00:00: n by Medical (Insulin 00 Miscellane Cente r Pen ous route [place]) 2 (two) Ndle times daily. blood sugar Yes 1{appli Q.[id number] [address] [facility] [address] diagnostic 8-25 cation} [id number] [facility] (glucose 00:00: 3D n by Medical blood) Strp 00 Miscellane Ce nter ous route 3 (three) times daily. metFORMIN Yes 1000mg Take [address] [facility] (GLUCOPHAGE 8-25 tablet [facility] ) 1000 MG 00:00: (1,000 mg Med ical tablet 00 total) by Center mouth 2 (two) times daily with breakfast and dinner. needles, Yes 1{appli Q.5D [address] insulin 8-25 cation} applicatio [facility] [facility] disposable 00:00: n by Medical (Insulin 00 [facility]iscellane Cente r Pen ous route [place]) 2 (two) Ndle times daily. blood sugar 2021- Yes 1{appli Q.[id number] [address] [facility] [address] diagnostic 8-25 cation} [id number] [facility] (glucose 00:00: 3D n by Medical blood) Strp 00 Miscellane Ce nter ous route 3 (three) times daily. metFORMIN 2021-0 Yes 1000mg Take [address] [facility] (GLUCOPHAGE 8-25 tablet [facility] ) 1000 MG 00:00: (1,000 mg Med ical tablet 00 total) by Center mouth 2 (two) times daily with breakfast and dinner. needles, Yes 1{appli Q.5D [address] insulin 8-25 cation} applicatio [facility] disposable 00:00: n by Medical (Insulin 00 [facility]ellane Cente r Pen ous route [place]) 2 (two) Ndle times daily. blood sugar 2021- Yes 1{appli Q.34445409 [address] [facility] [address] diagnostic 8-25 cation} [id number] [facility] (glucose 00:00: 3D n by Medical blood) Strp 00 Miscellane Ce nter ous route 3 (three) times daily. metFORMIN 2021- Yes 1000mg Take [address] [facility] (GLUCOPHAGE 8-25 tablet [facility] ) 1000 MG 00:00: (1,000 mg Med ical tablet 00 total) by Center mouth 2 (two) times daily with breakfast and dinner. needles, Yes 1{appli Q.5D [address] insulin 8-25 cation} applicatio [facility] es disposable 00:00: n by Medical (Insulin 00 Miscellane Cente r Pen ous route [place]) 2 (two) Ndle times daily. blood sugar 2021-0 Yes 1{appli Q.[id number] [address] [facility] [address] diagnostic 8-25 cation} [id number] [facility] (glucose 00:00: 3D n by Medical blood) Strp 00 Miscellane Ce nter ous route 3 (three) times daily. metFORMIN 2021-0 Yes 1000mg Take [address] [facility] (GLUCOPHAGE 8-25 tablet [facility] ) 1000 MG 00:00: (1,000 mg Med ical tablet 00 total) by Center mouth 2 (two) times daily with breakfast and dinner. needles, 2021- Yes 1{appli Q.5D [address] [address] insulin 8-25 cation} applicatio [facility] disposable 00:00: n by Medical (Insulin 00 Miscellane Cente r Pen ous route [place]) 2 (two) Ndle times daily. blood sugar 2021- Yes 1{appli Q.[id number] [address] [facility] [address] diagnostic 8-25 cation} [id number] [facility] (glucose 00:00: 3D n by Medical blood) Strp 00 Miscellane Ce nter ous route 3 (three) times daily. metFORMIN Yes 1000mg Take [address] [facility] (GLUCOPHAGE 8-25 tablet [facility] ) 1000 MG 00:00: (1,000 mg Med ical tablet 00 total) by Center mouth 2 (two) times daily with breakfast and dinner. needles, Yes 1{appli Q.5D [address] insulin 8-25 cation} applicatio [facility] es disposable 00:00: n by Medical (Insulin 00 Miscellane Cente r Pen ous route [place]) 2 (two) Ndle times daily. blood sugar Yes 1{appli Q.[id number] [address] [facility] [address] diagnostic 8-25 cation} [id number] [facility] (glucose 00:00: 3D n by Medical blood) Strp 00 Miscellane Ce nter ous route 3 (three) times daily. metFORMIN Yes TAKE 1 [facility] (Glucophage 8-25 TABLET BY [facility] ) 1000 MG 00:00: MOUTH tablet 00 TWICE DAILY WITH BREAKFAST AND WITH SUPPER BD Pen Yes USE PEN [facility] Needle Lillie 8-25 NEEDLE Health 2nd Gen 32G 00:00: TWICE X 4 MM misc 00 DAILY Blood 2021-0 Yes See [facility] Glucose 8-25 administra Health Monitoring 00:00: tion Suppl 00 instructio (Jessi Holm) w/Device kit HYDROcodone Yes TAKE 1 UT -acetaminop 8-25 TABLET BY [facility] hen ([place]) 00:00: MOUTH 5-325 MG 00 EVERY 6 tablet HOURS NEEDED FOR PAIN FOR 10 DAYS MAX DAILY DOSE 4 TABLETS/ 24 HOURS blood-gluco 2022-0 2023- No Use as [facility] se meter 8-25 08-25 instructed [facility] kit 00:00: 23:59 . Medical 00 :00 Center blood-gluco 2022-0 2023- No Use as [facility] se meter 8-25 08-25 instructed [facility] kit 00:00: 23:59 . Medical 00 :00 Center blood-gluco 2022-0 2023- No Use as [facility] se meter 8-25 08-25 instructed [facility] kit 00:00: 23:59 . Medical 00 :00 Center blood-gluco 2022-0 2023- No Use as [facility] se meter 8-25 08-25 instructed [facility] kit 00:00: 23:59 . Medical 00 :00 Center blood-gluco 2022-0 2023- No Use as [facility] se meter 8-25 08-25 instructed [facility] kit 00:00: 23:59 . Medical 00 :00 Center blood-gluco 2022-0 2023- No Use as [facility] se meter 8-25 08-25 instructed [facility] kit 00:00: 23:59 . Medical 00 :00 Center blood-gluco 2022-0 2023- No Use as [facility] se meter 8-25 08-25 instructed [facility] kit 00:00: 23:59 . Medical 00 :00 Center blood-gluco 2022-0 2023- No Use as [facility] se meter 8-25 08-25 instructed [facility] kit 00:00: 23:59 . Medical 00 :00 Center blood-gluco 2022-0 2023- No Use as [facility] se meter 8-25 08-25 instructed [facility] 00:00: 23:59 . Medical 00 :00 Center blood-gluco 2022-0 2023- No Use as [facility] 8-25 08-25 instructed [facility] 00:00: 23:59 . Medical 00 :00 Center blood-gluco 2022-0 2023- No Use as [facility] meter 8-25 08-25 instructed [facility] 00:00: 23:59 . Medical 00 :00 Center blood-gluco 2022-0 2023- No Use as [facility] meter 8-25 08-25 instructed [facility] 00:00: 23:59 . Medical 00 :00 Center blood-gluco 2022-0 2023- No Use as [facility] meter 8-25 08-25 instructed [facility] 00:00: 23:59 . Medical 00 :00 Center blood-gluco 2021-2022- No Use as [facility] meter 8-25 08-25 instructed [facility] 00:00: 23:59 . Medical 00 :00 [place] blood-gluco 2021-0 2022- No Use as [facility] meter 8-25 08-25 instructed [facility] 00:00: 23:59 . Medical 00 :00 [place] blood-gluco 2021-0 2022- No Use as [facility] meter 8-25 08-25 instructed [facility] 00:00: 23:59 . Medical 00 :00 [place] insulin 2021- No 45U Inject [address] [facility] 70/30, 8-25 10-24 [facility] 00:00: 23:59 subcutaneo Med ical NPH-insulin 00 :[address] regular, (two) (HumuLIN times 70/30) 100 daily unit/mL before (70-30) meals for InPn 60 days. insulin pen insulin 2021- No 45U Inject [address] [facility] 70/30, 8-25 10-24 [facility] 00:00: 23:59 subcutaneo Med ical NPH-insulin 00 :[address] regular, (two) (HumuLIN times 70/30) 100 daily unit/mL before (70-30) meals for InPn 60 days. insulin pen insulin 2021- No 45U Inject [address] [facility] 70/30, 8-25 10-24 [facility] 00:00: 23:59 subcutaneo Med ical NPH-insulin 00 :[address] regular, (two) (HumuLIN times 70/30) 100 daily unit/mL before (70-30) meals for InPn 60 days. insulin pen insulin 2021-2021- No 45U Inject [address] [facility] 70/30, 8-25 10-24 [facility] 00:00: 23:59 subcutaneo Med ical NPH-insulin 00 :[address] regular, (two) (HumuLIN times 70/30) 100 daily unit/mL before (70-30) meals for InPn 60 days. insulin pen insulin 2021- No 45U Inject [address] [facility] 70/30, 8-25 10-24 [facility] 00:00: 23:59 subcutaneo Med ical NPH-insulin 00 :00 [facility] 2 [place] regular, (two) (HumuLIN times 70/30) 100 daily unit/mL before (70-30) meals for InPn 60 days. insulin pen insulin 2021- No 45U Inject [address] [facility] 70/30, 8-25 10-24 [facility] 00:00: 23:59 subcutaneo Med ical NPH-insulin 00 :[address] regular, (two) (HumuLIN times 70/30) 100 daily unit/mL before (70-30) meals for InPn 60 days. insulin pen insulin 2021- No 45U Inject [address] [facility] 70/30, 8-25 10-24 [facility] 00:00: 23:59 subcutaneo Med ical NPH-insulin 00 :[address] regular, (two) (HumuLIN times 70/30) 100 daily unit/mL before (70-30) meals for InPn 60 days. insulin pen insulin 2021- No 45U Inject [address] [facility] 70/30, 8-25 10-24 [facility] 00:00: 23:59 subcutaneo Med ical NPH-insulin 00 :[address] regular, (two) (HumuLIN times 70/30) 100 daily unit/mL before (70-30) meals for InPn 60 days. insulin pen insulin 2021- No 45U Inject [address] [facility] 70/30, 8-25 10-24 [facility] 00:00: 23:59 subcutaneo Med ical NPH-insulin 00 :00 [facility] 2 [place] regular, (two) (HumuLIN times 70/30) 100 daily unit/mL before (70-30) meals for InPn 60 days. insulin pen insulin 2021- No 45U Inject [address] [facility] 70/30, 8-25 10-24 [facility] 00:00: 23:59 subcutaneo Med ical NPH-insulin 00 :[address] regular, (two) (HumuLIN times 70/30) 100 daily unit/mL before (70-30) meals for InPn 60 days. insulin pen insulin 2021- No 45U Inject [address] [facility] 70/30, 8-25 10-24 [facility] 00:00: 23:59 subcutaneo Med ical NPH-insulin 00 :[address] regular, (two) (HumuLIN times 70/30) 100 daily unit/mL before (70-30) meals for InPn 60 days. insulin pen insulin 2021- No 45U Inject [address] [facility] 70/30, 8-25 10-24 [facility] 00:00: 23:59 subcutaneo Med ical NPH-insulin 00 :[address] regular, (two) (HumuLIN times 70/30) 100 daily unit/mL before (70-30) meals for InPn 60 days. insulin pen insulin 2021- No 45U Inject [address] [facility] 70/30, 8-25 10-24 [facility] 00:00: 23:59 subcutaneo Med ical NPH-insulin 00 :[address] regular, (two) (HumuLIN times 70/30) 100 daily unit/mL before (70-30) meals for InPn 60 days. insulin pen insulin 2021- No 45U Inject [address] [facility] 70/30, 8-25 10-24 [facility] 00:00: 23:59 subcutaneo Med ical NPH-insulin 00 :[address] regular, (two) (HumuLIN times 70/30) 100 daily unit/mL before (70-30) meals for InPn 60 days. insulin pen insulin 2021- No 45U Inject [address] [facility] 70/30, 8-25 10-24 [facility] 00:00: 23:59 subcutaneo Med ical NPH-insulin 00 :[address] regular, (two) (HumuLIN times 70/30) 100 daily unit/mL before (70-30) meals for InPn 60 days. insulin pen insulin 2021- No 45U Inject [address] [facility] 70/30, 8-25 10-24 [facility] 00:00: 23:59 subcutaneo Med ical NPH-insulin 00 :00 [facility] regular, (two) (HumuLIN times 70/30) 100 daily unit/mL before (70-30) meals for InPn 60 days. insulin pen HYDROcodone 2021- No 1{tbl} Take [address] -acetaminop 8-25 09-04 tablet by Suzanne barahona ([place] 00:00: 23:59 mouth Medic al 5-325) 00 :00 every 6 Center 5-325 mg (six) per tablet hours as needed for Pain for up to 10 days. Max Daily Amount: 4 tablets HYDROcodone 2021- No 1{tbl} Take [address] -acetaminop 8-25 09-04 tablet by Suzanne barahona ([place] 00:00: 23:59 mouth Medic al 5-325) 00 :00 every 6 Center 5-325 mg (six) per tablet hours as needed for Pain for up to 10 days. Max Daily Amount: 4 tablets HYDROcodone 2021- No 1{tbl} Take [address] -acetaminop 8-25 09-04 tablet by Suzanne barahona ([place] 00:00: 23:59 mouth Medic al 5-325) 00 :00 every 6 Center 5-325 mg (six) per tablet hours as needed for Pain for up to 10 days. Max Daily Amount: 4 tablets HYDROcodone 2021- No 1{tbl} Take [address] -acetaminop 8-25 09-04 tablet by Suzanne barahona ([place] 00:00: 23:59 mouth Medic al 5-325) 00 :00 every 6 Center 5-325 mg (six) per tablet hours as needed for Pain for up to 10 days. Max Daily Amount: 4 tablets HYDROcodone 2021- No 1{tbl} Take [address] -acetaminop 8-25 09-04 tablet by Suzanne barahona ([place] 00:00: 23:59 mouth Medic al 5-325) 00 :00 every 6 Center 5-325 mg (six) per tablet hours as needed for Pain for up to 10 days. Max Daily Amount: 4 tablets HYDROcodone 2021- No 1{tbl} Take [address] -acetaminop 8-25 09-04 tablet by Suzanne barahona ([place] 00:00: 23:59 mouth Medic al 5-325) 00 :00 every 6 Center 5-325 mg (six) per tablet hours as needed for Pain for up to 10 days. Max Daily Amount: 4 tablets HYDROcodone 2021-0 2021- No 1{tbl} Take [address] -acetaminop 8-25 09-04 tablet by Suzanne barahona ([place] 00:00: 23:59 mouth Medic al 5-325) 00 :00 every 6 Center 5-325 mg (six) per tablet hours as needed for Pain for up to 10 days. Max Daily Amount: 4 tablets HYDROcodone 2021-2021- No 1{tbl} Take [address] -acetaminop 8-25 09-04 tablet by Suzanne barahona ([place] 00:00: 23:59 mouth Medic al 5-325) 00 :00 every 6 Center 5-325 mg (six) per tablet hours as needed for Pain for up to 10 days. Max Daily Amount: 4 tablets HYDROcodone 2021-2021- No 1{tbl} Take [address] -acetaminop 8-25 09-04 tablet by Suzanne barahona ([place] 00:00: 23:59 mouth Medic al 5-325) 00 :00 every 6 Center 5-325 mg (six) per tablet hours as needed for Pain for up to 10 days. Max Daily Amount: 4 tablets HYDROcodone 2021-2021- No 1{tbl} Take [address] -acetaminop 8-25 09-04 tablet by Suzanne barahona ([place] 00:00: 23:59 mouth Medic al 5-325) 00 :00 every 6 Center 5-325 mg (six) per tablet hours as needed for Pain for up to 10 days. Max Daily Amount: 4 tablets HYDROcodone 2021-0 2021- No 1{tbl} Take [address] -acetaminop 8-25 09-04 tablet by Suzanne barahona ([place] 00:00: 23:59 mouth Medic al 5-325) 00 :00 every 6 Center 5-325 mg (six) per tablet hours as needed for Pain for up to 10 days. Max Daily Amount: 4 tablets HYDROcodone 2021-2021- No 1{tbl} Take [address] -acetaminop 8-25 09-04 tablet by Suzanne barahona ([place] 00:00: 23:59 mouth Medic al 5-325) 00 :00 every 6 Center 5-325 mg (six) per tablet hours as needed for Pain for up to 10 days. Max Daily Amount: 4 tablets HYDROcodone 2021-2021- No 1{tbl} Take [address] -acetaminop 8-25 09-04 tablet by Suzanne barahona ([place] 00:00: 23:59 mouth Medic al 5-325) 00 :00 every 6 Center 5-325 mg (six) per tablet hours as needed for Pain for up to 10 days. Max Daily Amount: 4 tablets HYDROcodone 2021-2021- No 1{tbl} Take [address] -acetaminop 8-25 09- tablet by Suzanne barahona ([place] 00:00: 23:59 mouth Medic al 5-325) 00 :00 every 6 Center 5-325 mg (six) per tablet hours as needed for Pain for up to 10 days. Max Daily Amount: 4 tablets HYDROcodone 2021-2021- No 1{tbl} Take [address] -acetaminop 8-25 -04 tablet by Suzanne barahona ([place] 00:00: 23:59 mouth Medic al 5-325) 00 :00 every 6 Center 5-325 mg (six) per tablet hours as needed for Pain for up to 10 days. Max Daily Amount: 4 tablets HYDROcodone 2021-2021- No 1{tbl} Take [address] -acetaminop 8-25 - tablet by Suzanne barahona ([place] 00:00: 23:59 mouth Medic al 5-325) 00 :00 every 6 Center 5-325 mg (six) per tablet hours as needed for Pain for up to 10 days. Max Daily Amount: 4 tablets metFORMIN 2021- No 1000mg Take [address] [facility] (GLUCOPHAGE 8-06 05-25 [facility] ) 1000 MG 00:00: 00:00 (1,000 mg Me dical tablet 00 :00 total) by Center mouth 2 (two) times daily with breakfast and dinner. insulin NPH 2021- No 40U Inject [address] [facility] (HumuLIN N) 8- 08-25 [facility] 100 unit/mL 00:00: 00:00 subcutaneo Medical injection 00 :00 us 2 Center (two) times daily before meals for 30 days Use as directed. insulin 2021-2021- No 12U Inject [address] [facility] regular 8-25 08-25 [facility] (HumuLIN 00:00: 00:00 subcutaneo Me dical R,NovoLIN 00 :00 us 3 Center R) 100 (three) unit/mL times injection daily before meals Use as directed. insulin 2021-2021- No 1{appli Q.2D [address] [facility] syringe-nee 8-25 08-25 cation} applicatio [facility] U-100 1 00:00: 00:00 n by Medic al mL 30 gauge 00 :00 [facility]ane Ce nter x 5/16 Syrg ous route 5 (five) times daily. metFORMIN 2021- No 1000mg Take [address] [facility] (GLUCOPHAGE 8-25 08-25 tablet [facility] ) 1000 MG 00:00: 00:00 (1,000 mg Me dical tablet 00 :00 total) by Center mouth 2 (two) times daily with breakfast and dinner. insulin NPH 2021- No 40U Inject [address] [facility] (HumuLIN N) 8-25 08-25 [facility] 100 unit/mL 00:00: 00:00 subcutaneo Medical injection 00 :00 [facility] 2 Center (two) times daily before meals for 30 days Use as directed. insulin 2021-2021- No 12U Inject [address] [facility] regular 8-25 08-25 [facility] (HumuLIN 00:00: 00:00 subcutaneo Me dical R,NovoLIN 00 :00 [facility] 3 [place] R) 100 (three) unit/mL times injection daily before meals Use as directed. insulin 2021-2021- No 1{appli Q.2D [address] [facility] syringe-nee 8-25 08-25 cation} applicatio [facility] U-100 1 00:00: 00:00 n by Medic al mL 30 gauge 00 :00 [facility]ane Ce nter x 5/16 Syrg ous route 5 (five) times daily. metFORMIN 2021-2021- No 1000mg Take [address] [facility] (GLUCOPHAGE 8-25 08-25 tablet [facility] ) 1000 MG 00:00: 00:00 (1,000 mg Me dical tablet 00 :00 total) by Center mouth 2 (two) times daily with breakfast and dinner. insulin NPH 2021- No 40U Inject [address] [facility] (HumuLIN N) 8-25 08-25 [facility] 100 unit/mL 00:00: 00:00 subcutaneo Medical injection 00 :00 [facility] (two) times daily before meals for 30 days Use as directed. insulin 2021-2021- No 12U Inject [address] [facility] regular 8-25 08-25 [facility] (HumuLIN 00:00: 00:00 subcutaneo Me dical R,NovoLIN 00 :00 [facility] R) 100 (three) unit/mL times injection daily before meals Use as directed. insulin 2021- No 1{appli Q.2D [address] [facility] syringe-nee 8-25 08-25 cation} applicatio [facility] U-100 1 00:00: 00:00 n by Medic al mL 30 gauge 00 :00 [facility] Ce nter x 5/16 Syrg ous route 5 (five) times daily. metFORMIN 2021- No 1000mg Take [address] [facility] (GLUCOPHAGE 8-25 08-25 [facility] ) 1000 MG 00:00: 00:00 (1,000 mg Me dical tablet 00 :00 total) by Center mouth 2 (two) times daily with breakfast and dinner. insulin NPH 2021- No 40U Inject [address] [facility] (HumuLIN N) 8-25 08-25 [facility] 100 unit/mL 00:00: 00:00 subcutaneo Medical injection 00 :00 [facility] (two) times daily before meals for 30 days Use as directed. insulin 2021-2021- No 12U Inject [address] [facility] regular 8-25 08-25 [facility] (HumuLIN 00:00: 00:00 subcutaneo Me dical R,NovoLIN 00 :00 [facility] 3 [facility] R) 100 (three) unit/mL times injection daily before meals Use as directed. insulin 2021-2021- No 1{appli Q.2D [address] [facility] syringe-nee 8-25 08-25 cation} applicatio [facility] U-100 1 00:00: 00:00 n by Medic al mL 30 gauge 00 :00 [facility]isc[facility]ane Ce nter x 5/16 Syrg ous route 5 (five) times daily. metFORMIN 2021-2021- No 1000mg Take [address] [facility] (GLUCOPHAGE 8-25 08-25 tablet [facility] ) 1000 MG 00:00: 00:00 (1,000 mg Me dical tablet 00 :00 total) by Center mouth 2 (two) times daily with breakfast and dinner. insulin NPH 2021-2021- No 40U Inject [address] [facility] (HumuLIN N) 8-25 08-25 [facility] 100 unit/mL 00:00: 00:00 subcutaneo Medical injection 00 :00 [facility] 2 [facility] (two) times daily before meals for 30 days Use as directed. insulin 2021-2021- No 12U Inject [address] [facility] regular 8-25 08-25 [facility] (HumuLIN 00:00: 00:00 subcutaneo Me dical R,NovoLIN 00 :00 [facility] 3 [facility] R) 100 (three) unit/mL times injection daily before meals Use as directed. insulin 2021-2021- No 1{appli Q.2D [address] [facility] syringe-nee 8-25 08-25 cation} applicatio [facility] U-100 1 00:00: 00:00 n by Medic al mL 30 gauge 00 :00 [facility]isc[facility]ane Ce nter x 5/16 Syrg ous route 5 (five) times daily. metFORMIN 2021-2021- No 1000mg Take [address] [facility] (GLUCOPHAGE 8-25 08-25 tablet [facility] ) 1000 MG 00:00: 00:00 (1,000 mg Me dical tablet 00 :00 total) by Center mouth 2 (two) times daily with breakfast and dinner. insulin NPH 2021-2021- No 40U Inject [address] [facility] (HumuLIN N) 8-25 08-25 [facility] 100 unit/mL 00:00: 00:00 subcutaneo Medical injection 00 :00 [facility] 2 [facility] (two) times daily before meals for 30 days Use as directed. insulin 2021-2021- No 12U Inject [address] [facility] regular 8-25 08-25 [facility] (HumuLIN 00:00: 00:00 subcutaneo Me dical R,NovoLIN 00 :00 [facility] 3 [facility] R) 100 (three) unit/mL times injection daily before meals Use as directed. insulin 2021- No 1{appli Q.2D [address] [facility] syringe-nee 8-25 08-25 cation} applicatio [facility] U-100 1 00:00: 00:00 n by Medic al mL 30 gauge 00 :00 [facility]ane Ce nter x 5/16 Syrg ous route 5 (five) times daily. metFORMIN 2021-2021- No 1000mg Take [address] [facility] (GLUCOPHAGE 8-25 08-25 [facility] ) 1000 MG 00:00: 00:00 (1,000 mg Me dical tablet 00 :00 total) by Center mouth 2 (two) times daily with breakfast and dinner. insulin NPH 2021- No 40U Inject [address] [facility] (HumuLIN N) 8-25 08-25 [facility] 100 unit/mL 00:00: 00:00 subcutaneo Medical injection 00 :00 [facility] 2 [facility] (two) times daily before meals for 30 days Use as directed. insulin 2021-2021- No 12U Inject [address] [facility] regular 8-25 08-25 [facility] (HumuLIN 00:00: 00:00 subcutaneo Me dical R,NovoLIN 00 :00 [facility] 3 [facility] R) 100 (three) unit/mL times injection daily before meals Use as directed. insulin 2021-2021- No 1{appli Q.2D [address] [facility] syringe-nee 8-25 08-25 cation} applicatio [facility] U-100 1 00:00: 00:00 n by Medic al mL 30 gauge 00 :00 Miscellane Ce nter x 5/16 Syrg ous route 5 (five) times daily. metFORMIN 2021-2021- No 1000mg Take [address] [facility] (GLUCOPHAGE 8-25 08-25 tablet [facility] ) 1000 MG 00:00: 00:00 (1,000 mg Me dical tablet 00 :00 total) by Center mouth 2 (two) times daily with breakfast and dinner. insulin NPH 2021-2021- No 40U Inject [address] [facility] (HumuLIN N) 8-25 08-25 [facility] 100 unit/mL 00:00: 00:00 subcutaneo Medical injection 00 :00 us 2 Center (two) times daily before meals for 30 days Use as directed. insulin 2021-2021- No 12U Inject [address] [facility] regular 8-25 08-25 [facility] (HumuLIN 00:00: 00:00 subcutaneo Me dical R,NovoLIN 00 :00 us 3 [place] R) 100 (three) unit/mL times injection daily before meals Use as directed. insulin 2021-2021- No 1{appli Q.2D [address] [facility] syringe-nee 8-25 08-25 cation} applicatio [facility] U-100 1 00:00: 00:00 n by Medic al mL 30 gauge 00 :00 Miscellane Ce nter x 5/16 Syrg ous route 5 (five) times daily. metFORMIN 2021- No 1000mg Take [address] [facility] (GLUCOPHAGE 8-25 08-25 tablet [facility] ) 1000 MG 00:00: 00:00 (1,000 mg Me dical tablet 00 :00 total) by Center mouth 2 (two) times daily with breakfast and dinner. insulin NPH 2021- No 40U Inject [address] [facility] (HumuLIN N) 8-25 08-25 [facility] 100 unit/mL 00:00: 00:00 subcutaneo Medical injection 00 :00 [facility] 2 Center (two) times daily before meals for 30 days Use as directed. insulin 2021- No 12U Inject [address] [facility] regular 8-25 08-25 [facility] (HumuLIN 00:00: 00:00 subcutaneo Me dical R,NovoLIN 00 :00 [facility] 3 [place] R) 100 (three) unit/mL times injection daily before meals Use as directed. insulin 2021-2021- No 1{appli Q.2D [address] [facility] syringe-nee 8-25 08-25 cation} applicatio [facility] U-100 1 00:00: 00:00 n by Medic al mL 30 gauge 00 :00 Miscellane Ce nter x 5/16 Syrg ous route 5 (five) times daily. metFORMIN 2021-2021- No 1000mg Take [address] [facility] (GLUCOPHAGE 8-25 08-25 [facility] ) 1000 MG 00:00: 00:00 (1,000 mg Me dical tablet 00 :00 total) by Center mouth 2 (two) times daily with breakfast and dinner. insulin NPH 2021- No 40U Inject [address] [facility] (HumuLIN N) 8-25 08-25 [facility] 100 unit/mL 00:00: 00:00 subcutaneo Medical injection 00 :00 [facility] 2 Center (two) times daily before meals for 30 days Use as directed. insulin 2021-2021- No 12U Inject [address] [facility] regular 8-25 08-25 [facility] (HumuLIN 00:00: 00:00 subcutaneo Me dical R,NovoLIN 00 :00 [facility] 3 Center R) 100 (three) unit/mL times injection daily before meals Use as directed. insulin 2021- No 1{appli Q.2D [address] [facility] syringe-nee 8-25 08-25 cation} applicatio [facility] U-100 1 00:00: 00:00 n by Medic al mL 30 gauge 00 :00 Miscellane Ce nter x 5/16 Syrg ous route 5 (five) times daily. metFORMIN 2021- No 1000mg Take [address] [facility] (GLUCOPHAGE 8-25 08-25 tablet [facility] ) 1000 MG 00:00: 00:00 (1,000 mg Me dical tablet 00 :00 total) by Center mouth 2 (two) times daily with breakfast and dinner. insulin NPH 2021- No 40U Inject [address] [facility] (HumuLIN N) 8-25 08-25 [facility] 100 unit/mL 00:00: 00:00 subcutaneo Medical injection 00 :00 [facility] 2 Center (two) times daily before meals for 30 days Use as directed. insulin 2021-2021- No 12U Inject [address] [facility] regular 8-25 08-25 [facility] (HumuLIN 00:00: 00:00 subcutaneo Me dical R,NovoLIN 00 :00 [facility] 3 [facility] R) 100 (three) unit/mL times injection daily before meals Use as directed. insulin 2021-2021- No 1{appli Q.2D [address] [facility] syringe-nee 8-25 08-25 cation} applicatio [facility] U-100 1 00:00: 00:00 n by Medic al mL 30 gauge 00 :00 Miscellane Ce nter x 5/16 Syrg ous route 5 (five) times daily. metFORMIN 2021-2021- No 1000mg Take [address] [facility] (GLUCOPHAGE 8-25 08-25 tablet [facility] ) 1000 MG 00:00: 00:00 (1,000 mg Me dical tablet 00 :00 total) by Center mouth 2 (two) times daily with breakfast and dinner. insulin NPH 2021-2021- No 40U Inject [address] [facility] (HumuLIN N) 8-25 08-25 [facility] 100 unit/mL 00:00: 00:00 subcutaneo Medical injection 00 :00 [facility] 2 Center (two) times daily before meals for 30 days Use as directed. insulin 2021-2021- No 12U Inject [address] [facility] regular 8-25 08-25 [facility] (HumuLIN 00:00: 00:00 subcutaneo Me dical R,NovoLIN 00 :00 [facility] 3 [facility] R) 100 (three) unit/mL times injection daily before meals Use as directed. insulin 2021-2021- No 1{appli Q.2D [address] [facility] syringe-nee 8-25 08-25 cation} applicatio [facility] U-100 1 00:00: 00:00 n by Medic al mL 30 gauge 00 :00 Miscellane Ce nter x 5/16 Syrg ous route 5 (five) times daily. metFORMIN 2021-2021- No 1000mg Take [address] [facility] (GLUCOPHAGE 8-25 08-25 tablet [facility] ) 1000 MG 00:00: 00:00 (1,000 mg Me dical tablet 00 :00 total) by Center mouth 2 (two) times daily with breakfast and dinner. insulin NPH 2021-2021- No 40U Inject [address] [facility] (HumuLIN N) 8-25 08-25 [facility] 100 unit/mL 00:00: 00:00 subcutaneo Medical injection 00 :00 [facility] 2 Center (two) times daily before meals for 30 days Use as directed. insulin 2021-2021- No 12U Inject [address] [facility] regular 8-25 08-25 Units [facility] (HumuLIN 00:00: 00:00 subcutaneo Me dical R,NovoLIN 00 :00 [facility] 3 Center R) 100 (three) unit/mL times injection daily before meals Use as directed. insulin 2021- No 1{appli Q.2D [address] [facility] syringe-nee 8-25 08-25 cation} applicatio [facility] U-100 1 00:00: 00:00 n by Medic al mL 30 gauge 00 :00 Miscellane Ce nter x 5/16 Syrg ous route 5 (five) times daily. metFORMIN 2021- No 1000mg Take [address] [facility] (GLUCOPHAGE 8-25 08-25 tablet [facility] ) 1000 MG 00:00: 00:00 (1,000 mg Me dical tablet 00 :00 total) by Center mouth 2 (two) times daily with breakfast and dinner. insulin NPH 2021- No 40U Inject [address] [facility] (HumuLIN N) 8-25 08-25 [facility] 100 unit/mL 00:00: 00:00 subcutaneo Medical injection 00 :00 [facility] 2 Center (two) times daily before meals for 30 days Use as directed. insulin 2021-2021- No 12U Inject [address] [facility] regular 8-25 08-25 Units [facility] (HumuLIN 00:00: 00:00 subcutaneo Me dical R,NovoLIN 00 :00 [facility] 3 Center R) 100 (three) unit/mL times injection daily before meals Use as directed. insulin 2021- No 1{appli Q.2D [address] [facility] syringe-nee 8-25 08-25 cation} applicatio [facility] U-100 1 00:00: 00:00 n by Medic al mL 30 gauge 00 :00 Miscellane Ce nter x 5/16 Syrg ous route 5 (five) times daily. metFORMIN 2021-2021- No 1000mg Take [address] [facility] (GLUCOPHAGE 8-25 08-25 tablet [facility] ) 1000 MG 00:00: 00:00 (1,000 mg Me dical tablet 00 :00 total) by Center mouth 2 (two) times daily with breakfast and dinner. insulin NPH 2021- No 40U Inject [address] [facility] (HumuLIN N) 8-25 08-25 [facility] 100 unit/mL 00:00: 00:00 subcutaneo Medical injection 00 :00 us 2 Center (two) times daily before meals for 30 days Use as directed. insulin 2021- No 12U Inject [address] [facility] regular 8-25 08-25 Units [facility] (HumuLIN 00:00: 00:00 subcutaneo Me dical R,NovoLIN 00 :00 us 3 Center R) 100 (three) unit/mL times injection daily before meals Use as directed. insulin 2021- No 1{appli Q.2D [address] [facility] syringe-nee 8-25 08-25 cation} applicatio [facility] U-100 1 00:00: 00:00 n by Medic al mL 30 gauge 00 :00 Miscellane Ce nter x 5/16 Syrg ous route 5 (five) times daily. metFORMIN 2021- No 1000mg Take [address] [facility] (GLUCOPHAGE 8-25 08-25 tablet [facility] ) 1000 MG 00:00: 00:00 (1,000 mg Me dical tablet 00 :00 total) by Center mouth 2 (two) times daily with breakfast and dinner. insulin NPH 2021- No 40U Inject [address] [facility] (HumuLIN N) 8-25 08-25 [facility] 100 unit/mL 00:00: 00:00 subcutaneo Medical injection 00 :00 [facility] 2 Center (two) times daily before meals for 30 days Use as directed. insulin 2021- No 12U Inject [address] [facility] regular 8-25 08-25 [facility] (HumuLIN 00:00: 00:00 subcutaneo Me dical R,NovoLIN 00 :00 [facility] 3 [place] R) 100 (three) unit/mL times injection daily before meals Use as directed. insulin 2021-2021- No 1{appli Q.2D [address] [facility] syringe-nee 8-25 08-25 cation} applicatio [facility] U-100 1 00:00: 00:00 n by Medic al mL 30 gauge 00 :00 Miscellane Ce nter x 5/16 Syrg ous route 5 (five) times daily. TAKE 1 No TABLET BY 6-15 MOUTH AT 00:00: BEDTIME 00 NEEDED Dose 2022-0 No Unknown 6-15 00:00: 00 TAKE 1 2022-0 No TABLET BY 6-15 MOUTH AT 00:00: BEDTIME 00 NEEDED Dose 2022-0 No Unknown 6-15 00:00: 00 TAKE 1 2022-0 No TABLET BY 6-15 MOUTH AT 00:00: BEDTIME 00 NEEDED Dose 2022-0 No Unknown 6-15 00:00: 00 TAKE 1 2022-0 No TABLET BY 6-15 MOUTH AT 00:00: BEDTIME 00 NEEDED Dose 2022-0 No Unknown 6-15 00:00: 00 TAKE 1 2022-0 No TABLET BY 6-15 MOUTH AT 00:00: BEDTIME 00 NEEDED Dose 2022-0 No Unknown 6-15 00:00: 00 TAKE 1 2022-0 No TABLET BY 6-15 MOUTH AT 00:00: BEDTIME 00 NEEDED Dose 2022-0 No Unknown 6-15 00:00: 00 lisinopril 2022-0 No 1mg 20 mg 5-26 tablet 00:00: 00 methocarbam 2022-0 No 1mg ol 500 mg 5-26 tablet 00:00: 00 gabapentin 2022-0 No 1mg 300 mg 5-26 capsule 00:00: 00 Dose 2022-0 No Unknown 5-26 00:00: 00 Dose 2022-0 No Unknown 5-26 00:00: 00 Dose 2022-0 No Unknown 5-26 00:00: 00 Dose 2022-0 No Unknown 5-26 00:00: 00 lisinopril 2022-0 No 1mg 20 mg 5-26 tablet 00:00: 00 methocarbam 2022-0 No 1mg ol 500 mg 5-26 tablet 00:00: 00 gabapentin 2022-0 No 1mg 300 mg 5-26 capsule 00:00: 00 Dose 2022-0 No Unknown 5-26 00:00: 00 Dose 2022-0 No Unknown 5-26 00:00: 00 Dose 2022-0 No Unknown 5-26 00:00: 00 Dose 2022-0 No Unknown 5-26 00:00: 00 lisinopril 2022-0 No 1mg 20 mg 5-26 tablet 00:00: 00 methocarbam 2022-0 No 1mg ol 500 mg 5-26 tablet 00:00: 00 gabapentin 2022-0 No 1mg 300 mg 5-26 capsule 00:00: 00 Dose 2022-0 No Unknown 5 00:00: 00 Dose 2022-0 No Unknown 5- 00:00: 00 Dose 2022-0 No Unknown 5- 00:00: 00 Dose 2022-0 No Unknown 5 00:00: 00 TAKE 1 2021-0 No TABLET BY 5- MOUTH DAILY 00:00: 00 methocarbam 2021-0 No 1mg ol 500 mg 5- tablet 00:00: 00 gabapentin 2022-0 No 1mg 300 mg 5- capsule 00:00: 00 Dose 2022-0 No Unknown 02-04 00:00: 00 Dose 2022-0 No Unknown 02-04 00:00: 00 Dose 2022-0 No Unknown 02-04 00:00: 00 Dose 2022-0 No Unknown 02-04 00:00: 00 TAKE 1 2021-0 No TABLET BY 02-04 MOUTH DAILY 00:00: 00 methocarbam 2021-0 No 1mg ol 500 mg 5- tablet 00:00: 00 gabapentin 2-0 No 1mg 300 mg 5- capsule 00:00: 00 Dose 2022-0 No Unknown 02-04 00:00: 00 Dose 2022-0 No Unknown 02-04 00:00: 00 Dose 2022-0 No Unknown 02-04 00:00: 00 Dose 2022-0 No Unknown 02-04 00:00: 00 TAKE 1 2021-0 No TABLET BY 02-04 MOUTH DAILY 00:00: 00 methocarbam 2-0 No 1mg ol 500 mg 5-26 tablet 00:00: 00 gabapentin 2-0 No 1mg 300 mg -26 capsule 00:00: 00 Dose 2022-0 No Unknown 02-04 00:00: 00 Dose 2022-0 No Unknown 02-04 00:00: 00 Dose 2022-0 No Unknown 02-04 00:00: 00 Dose 2022-0 No Unknown 02-04 00:00: 00 atorvastati 2021-0 2022- No 20mg QD Take [address] [facility] (LIPITOR) 5-07 05-07 tablet (20 [facility] 20 MG 00:00: 23:59 mg total) Medica l tablet 00 :00 by mouth Center nightly. gabapentin 2021-2022- No 100mg Q.[id number] Take [address] [facility] (NEURONTIN) 5 05- [id number] [facility] 00:00: 23:59 3D (100 mg Medical capsule 00 :00 total) by Center mouth 3 (three) times daily. lisinopriL 2021-2022- No 5mg QD Take [address] [facility] (PRINIVIL,Z - 05-07 tablet (5 Suzanne kes ESTRIL) 5 00:00: 23:59 mg total) Me dical MG tablet 00 :00 by mouth Center daily. senna-docus 2021-2022- No 1{tbl} QD Take [address] ate 5 05-07 tablet by [facility] (SENOKOT S) 00:00: 23:59 mouth Medi devan 8.6-50 mg 00 :00 nightly. Center per tablet atorvastati 2021-2022- No 20mg QD Take [address] [facility] (LIPITOR) 5 05-07 tablet (20 [facility] 20 MG 00:00: 23:59 mg total) Medica l tablet 00 :00 by mouth Center nightly. gabapentin 2021-2022- No 100mg Q.[id number] Take [address] [facility] (NEURONTIN) 5- [id number] [facility] 100 MG 00:00: 23:59 3D (100 mg Medical capsule 00 :00 total) by Center mouth 3 (three) times daily. lisinopriL 2021-2022- No 5mg QD Take [address] [facility] (PRINIVIL,Z 01-16 05-07 tablet (5 Suzanne kes ESTRIL) 5 00:00: 23:59 mg total) Me dical MG tablet 00 :00 by mouth Center daily. senna-docus 2021-2022- No 1{tbl} QD Take [address] ate 5- 05-07 tablet by [facility] (SENOKOT S) 00:00: 23:59 mouth Medi devan 8.6-50 mg 00 :00 nightly. Center per tablet atorvastati 2021- 202- No 20mg QD Take [address] [facility] (LIPITOR) 5- 05-07 tablet (20 [facility] 20 MG 00:00: 23:59 mg total) Medica l tablet 00 :00 by mouth Center nightly. gabapentin 2021-2022- No 100mg Q.[id number] Take [address] [facility] (NEURONTIN) 5- [id number] [facility] MG 00:00: 23:59 3D (100 mg Medical capsule 00 :00 total) by Center mouth 3 (three) times daily. lisinopriL 2021-2022- No 5mg QD Take [address] [facility] (PRINIVIL,Z - 05-07 tablet (5 Suzanne kes ESTRIL) 5 00:00: 23:59 mg total) Me dical MG tablet 00 :00 by mouth Center daily. senna-docus 2022- No 1{tbl} QD Take [address] ate 01-16- tablet by [facility] (SENOKOT S) 00:00: 23:59 mouth Medi devan 8.6-50 mg 00 :00 nightly. Center per tablet atorvastati 2022- No 20mg QD Take [address] [facility] (LIPITOR) 01-16- tablet (20 [facility] 20 MG 00:00: 23:59 mg total) Medica l tablet 00 :00 by mouth Center nightly. gabapentin 2022- No 100mg Q.[id number] Take [address] [facility] (NEURONTIN) 01-16- [id number] [facility] MG 00:00: 23:59 3D (100 mg Medical capsule 00 :00 total) by Center mouth 3 (three) times daily. lisinopriL 2022- No 5mg QD Take [address] [facility] (PRINIVIL,Z 01-16 05-07 tablet (5 Suzanne kes ESTRIL) 5 00:00: 23:59 mg total) Me dical MG tablet 00 :00 by mouth Center daily. senna-docus 2021-2022- No 1{tbl} QD Take [address] ate 5 05-07 tablet by [facility] (SENOKOT S) 00:00: 23:59 mouth Medi devan 8.6-50 mg 00 :00 nightly. Center per tablet atorvastati 2021-2022- No 20mg QD Take [address] [facility] (LIPITOR) 5 05-07 tablet (20 [facility] 20 MG 00:00: 23:59 mg total) Medica l tablet 00 :00 by mouth Center nightly. gabapentin 2022- No 100mg Q.[id number] Take [address] [facility] (NEURONTIN) 01-16- [id number] [facility] MG 00:00: 23:59 3D (100 mg Medical capsule 00 :00 total) by Center mouth 3 (three) times daily. lisinopriL 2022- No 5mg QD Take [address] [facility] (PRINIVIL,Z - 05-07 tablet (5 Suzanne kes ESTRIL) 5 00:00: 23:59 mg total) Me dical MG tablet 00 :00 by mouth Center daily. senna-docus 2022- No 1{tbl} QD Take [address] ate 01-16 05-07 tablet by [facility] (SENOKOT S) 00:00: 23:59 mouth Medi devan 8.6-50 mg 00 :00 nightly. Center per tablet atorvastati 2022- No 20mg QD Take [address] [facility] (LIPITOR) 01-16-07 tablet (20 [facility] 20 MG 00:00: 23:59 mg total) Medica l tablet 00 :00 by mouth Center nightly. gabapentin 2022- No 100mg Q.[id number] Take [address] [facility] (NEURONTIN) 01-16- [id number] [facility] MG 00:00: 23:59 3D (100 mg Medical capsule 00 :00 total) by Center mouth 3 (three) times daily. lisinopriL 2022- No 5mg QD Take [address] [facility] (PRINIVIL,Z - 05-07 tablet (5 Suzanne kes ESTRIL) 5 00:00: 23:59 mg total) Me dical MG tablet 00 :00 by mouth Center daily. senna-docus 2021-2022- No 1{tbl} QD Take [address] ate 5 05-07 tablet by [facility] (SENOKOT S) 00:00: 23:59 mouth Medi devan 8.6-50 mg 00 :00 nightly. Center per tablet atorvastati 2022- No 20mg QD Take [address] [facility] (LIPITOR) 5- 05-07 tablet (20 [facility] 20 MG 00:00: 23:59 mg total) Medica l tablet 00 :00 by mouth Center nightly. gabapentin 2021-2022- No 100mg Q.[id number] Take [address] [facility] (NEURONTIN) 5- 05-07 [id number] [facility] MG 00:00: 23:59 3D (100 mg Medical capsule 00 :00 total) by Center mouth 3 (three) times daily. lisinopriL 2021-2022- No 5mg QD Take [address] [facility] (PRINIVIL,Z 5- 05-07 tablet (5 Suzanne kes ESTRIL) 5 00:00: 23:59 mg total) Me dical MG tablet 00 :00 by mouth Center daily. senna-docus 2021-2022- No 1{tbl} QD Take [address] ate 5- 05-07 tablet by [facility] (SENOKOT S) 00:00: 23:59 mouth Medi devan 8.6-50 mg 00 :00 nightly. Center per tablet atorvastati 2022- No 20mg QD Take [address] [facility] (LIPITOR) 5 05-07 tablet (20 [facility] 20 MG 00:00: 23:59 mg total) Medica l tablet 00 :00 by mouth Center nightly. gabapentin 2021-2022- No 100mg Q.[id number] Take [address] [facility] (NEURONTIN) 5 05-07 [id number] [facility] 100 MG 00:00: 23:59 3D (100 mg Medical capsule 00 :00 total) by Center mouth 3 (three) times daily. lisinopriL 2021-2022- No 5mg QD Take [address] [facility] (PRINIVIL,Z 5- 05-07 tablet (5 Suzanne kes ESTRIL) 5 00:00: 23:59 mg total) Me dical MG tablet 00 :00 by mouth Center daily. senna-docus 2021-2022- No 1{tbl} QD Take [address] ate 5- 05-07 tablet [facility] (SENOKOT S) 00:00: 23:59 mouth Medi devan 8.6-50 mg 00 :00 nightly. Center per tablet atorvastati 2021-2022- No 20mg QD Take [address] [facility] (LIPITOR) 5- 05-07 tablet (20 [facility] 20 MG 00:00: 23:59 mg total) Medica l tablet 00 :00 by mouth Center nightly. gabapentin 2021-2022- No 100mg Q.[id number] Take [address] [facility] (NEURONTIN) 5- [id number] [facility] 100 MG 00:00: 23:59 3D (100 mg Medical capsule 00 :00 total) by Center mouth 3 (three) times daily. lisinopriL 2021-2022- No 5mg QD Take [address] [facility] (PRINIVIL,Z 01-16- tablet (5 Suzanne kes ESTRIL) 5 00:00: 23:59 mg total) Me dical MG tablet 00 :00 by mouth Center daily. senna-docus 2022- No 1{tbl} QD Take [address] ate 01-16-07 tablet by [facility] (SENOKOT S) 00:00: 23:59 mouth Medi devan 8.6-50 mg 00 :00 nightly. Center per tablet atorvastati 2022- No 20mg QD Take [address] [facility] (LIPITOR) 01-16- tablet (20 [facility] 20 MG 00:00: 23:59 mg total) Medica l tablet 00 :00 by mouth Center nightly. gabapentin 2021-2022- No 100mg Q.[id number] Take [address] [facility] (NEURONTIN) 01-16- [id number] [facility] 100 MG 00:00: 23:59 3D (100 mg Medical capsule 00 :00 total) by Center mouth 3 (three) times daily. lisinopriL 2021-2022- No 5mg QD Take [address] [facility] (PRINIVIL,Z - 05-07 tablet (5 Suzanne kes ESTRIL) 5 00:00: 23:59 mg total) Me dical MG tablet 00 :00 by mouth Center daily. senna-docus 2021-2022- No 1{tbl} QD Take [address] ate 5- 05-07 tablet [facility] (SENOKOT S) 00:00: 23:59 mouth Medi devan 8.6-50 mg 00 :00 nightly. Center per tablet atorvastati 2021-2022- No 20mg QD Take [address] [facility] (LIPITOR) 01-16 05-07 tablet (20 [facility] 20 MG 00:00: 23:59 mg total) Medica l tablet 00 :00 by mouth Center nightly. gabapentin 2021-2022- No 100mg Q.[id number] Take [address] [facility] (NEURONTIN) 01-16- [id number] [facility] 100 MG 00:00: 23:59 3D (100 mg Medical capsule 00 :00 total) by Center mouth 3 (three) times daily. lisinopriL 2022- No 5mg QD Take [address] [facility] (PRINIVIL,Z 01-16-07 tablet (5 Suzanne kes ESTRIL) 5 00:00: 23:59 mg total) Me dical MG tablet 00 :00 by mouth Center daily. senna-docus 2022- No 1{tbl} QD Take [address] ate 01-16-07 tablet [facility] (SENOKOT S) 00:00: 23:59 mouth Medi devan 8.6-50 mg 00 :00 nightly. Center per tablet atorvastati 2022- No 20mg QD Take [address] [facility] (LIPITOR) 01-16-07 tablet (20 [facility] 20 MG 00:00: 23:59 mg total) Medica l tablet 00 :00 by mouth Center nightly. gabapentin 2022- No 100mg Q.[id number] Take [address] [facility] (NEURONTIN) 01-16-07 [id number] [facility] 100 MG 00:00: 23:59 3D (100 mg Medical capsule 00 :00 total) by Center mouth 3 (three) times daily. lisinopriL 2021-2022- No 5mg QD Take [address] [facility] (PRINIVIL,Z 01-16 05-07 tablet (5 Suzanne kes ESTRIL) 5 00:00: 23:59 mg total) Me dical MG tablet 00 :00 by mouth Center daily. senna-docus 2022- No 1{tbl} QD Take [address] ate 5- 05-07 tablet [facility] (SENOKOT S) 00:00: 23:59 mouth Medi devan 8.6-50 mg 00 :00 nightly. Center per tablet atorvastati 2022- No 20mg QD Take [address] [facility] (LIPITOR) 5- 05-07 tablet (20 [facility] 20 MG 00:00: 23:59 mg total) Medica l tablet 00 :00 by mouth Center nightly. gabapentin 2021-2022- No 100mg Q.[id number] Take [address] [facility] (NEURONTIN) 5- 05-07 [id number] [facility] MG 00:00: 23:59 3D (100 mg Medical capsule 00 :00 total) by Center mouth 3 (three) times daily. lisinopriL 2022- No 5mg QD Take [address] [facility] (PRINIVIL,Z - 05-07 tablet (5 Suzanne kes ESTRIL) 5 00:00: 23:59 mg total) Me dical MG tablet 00 :00 by mouth Center daily. senna-docus 2022- No 1{tbl} QD Take [address] ate 5 05-07 tablet by [facility] (SENOKOT S) 00:00: 23:59 mouth Medi devan 8.6-50 mg 00 :00 nightly. Center per tablet atorvastati 2022- No 20mg QD Take [address] [facility] (LIPITOR) 5- 05-07 tablet (20 [facility] 20 MG 00:00: 23:59 mg total) Medica l tablet 00 :00 by mouth Center nightly. gabapentin 2022- No 100mg Q.[id number] Take [address] [facility] (NEURONTIN) 5- 05-07 [id number] [facility] 100 MG 00:00: 23:59 3D (100 mg Medical capsule 00 :00 total) by Center mouth 3 (three) times daily. lisinopriL 2022- No 5mg QD Take [address] [facility] (PRINIVIL,Z 5- 05-07 tablet (5 Suzanne kes ESTRIL) 5 00:00: 23:59 mg total) Me dical MG tablet 00 :00 by mouth Center daily. senna-docus 2021-2022- No 1{tbl} QD Take [address] ate 5- 05-07 tablet [facility] (SENOKOT S) 00:00: 23:59 mouth Medi devan 8.6-50 mg 00 :00 nightly. Center per tablet atorvastati 2021- 2023- No 20mg QD Take [address] [facility] (LIPITOR) 5- 05-07 tablet (20 [facility] 20 MG 00:00: 23:59 mg total) Medica l tablet 00 :00 by mouth Center nightly. gabapentin 2021-2022- No 100mg Q.[id number] Take [address] [facility] (NEURONTIN) 01-16- [id number] [facility] MG 00:00: 23:59 3D (100 mg Medical capsule 00 :00 total) by Center mouth 3 (three) times daily. lisinopriL 2021-2022- No 5mg QD Take [address] [facility] (PRINIVIL,Z 01-16- tablet (5 Suzanne kes ESTRIL) 5 00:00: 23:59 mg total) Me dical MG tablet 00 :00 by mouth Center daily. senna-docus 2022- No 1{tbl} QD Take [address] ate 01-16- tablet [facility] (SENOKOT S) 00:00: 23:59 mouth Medi devan 8.6-50 mg 00 :00 nightly. Center per tablet atorvastati 2021-2022- No 20mg QD Take [address] [facility] (LIPITOR) 5 05-07 tablet (20 [facility] 20 MG 00:00: 23:59 mg total) Medica l tablet 00 :00 by mouth Center nightly. gabapentin 2021-2022- No 100mg Q.[id number] Take [address] [facility] (NEURONTIN) 5 05- [id number] [facility] MG 00:00: 23:59 3D (100 mg Medical capsule 00 :00 total) by Center mouth 3 (three) times daily. lisinopriL 2021-2022- No 5mg QD Take [address] [facility] (PRINIVIL,Z 5- 05-07 tablet (5 Suzanne kes ESTRIL) 5 00:00: 23:59 mg total) Me dical MG tablet 00 :00 by mouth Center daily. senna-docus 2022- No 1{tbl} QD Take [address] ate 5- 05-07 tablet [facility] (SENOKOT S) 00:00: 23:59 mouth Medi devan 8.6-50 mg 00 :00 nightly. Center per tablet insulin 2021- No 33U QD Inject [address] [facility] glargine 5-07 08-25 [facility] (LANTUS, 00:00: 00:00 subcutaneo Me dical SEMGLEE) 00 :00 usly every Cente r 100 unit/mL morning injection Use as directed. insulin 2021- No 8U Inject 8 [facility] lispro [facility] 08-[facility] (HumaLOG) 00:00: 00:00 subcutaneo M edical 100 unit/mL 00 :00 usly 3 Center injection (three) times daily before meals. insulin No 33U QD Inject [address] [facility] glargine -07 08-25 [facility] (LANTUS, 00:00: 00:00 subcutaneo Me dical SEMGLEE) 00 :00 usly every Cente r 100 unit/mL morning injection Use as directed. insulin 2021- No 8U Inject 8 [facility]pro [facility] 08-[facility] (HumaLOG) 00:00: 00:00 subcutaneo M edical 100 unit/mL 00 :00 usly 3 Center injection (three) times daily before meals. insulin 2021- No 33U QD Inject [address] [facility] glargine 5-07 08-25 [facility] (LANTUS, 00:00: 00:00 subcutaneo Me dical SEMGLEE) 00 :00 usly every Cente r 100 unit/mL morning injection Use as directed. insulin 2021- No 8U Inject 8 [facility] 08-[facility] (HumaLOG) 00:00: 00:00 subcutaneo M edical 100 unit/mL 00 :00 usly 3 Center injection (three) times daily before meals. insulin 2021- No 33U QD Inject [address] [facility] glargine 5-07 08-25 [facility] (LANTUS, 00:00: 00:00 subcutaneo Me dical SEMGLEE) 00 :00 usly every Cente r 100 unit/mL morning injection Use as directed. insulin 2021- No 8U Inject 8 [facility]-07 08-[facility] (HumaLOG) 00:00: 00:00 subcutaneo M edical 100 unit/mL 00 :00 usly 3 Center injection (three) times daily before meals. insulin 2021- No 33U QD Inject [address] [facility] glargine 5-07 08-25 [facility] (LANTUS, 00:00: 00:00 subcutaneo Me dical SEMGLEE) 00 :00 usly every Cente r 100 unit/mL morning injection Use as directed. insulin 2021- No 8U Inject 8 [facility]-07 08-[facility] (HumaLOG) 00:00: 00:00 subcutaneo M edical 100 unit/mL 00 :00 usly 3 Center injection (three) times daily before meals. insulin 2021- No 33U QD Inject [address] [facility] glargine 5-07 08-25 [facility] (LANTUS, 00:00: 00:00 subcutaneo Me dical SEMGLEE) 00 :00 usly every Cente r 100 unit/mL morning injection Use as directed. insulin 2021- No 8U Inject 8 [facility] 08-[facility] (HumaLOG) 00:00: 00:00 subcutaneo M edical 100 unit/mL 00 :00 usly 3 Center injection (three) times daily before meals. insulin 2021- No 33U QD Inject [address] [facility] glargine 5-07 08-25 [facility] (LANTUS, 00:00: 00:00 subcutaneo Me dical SEMGLEE) 00 :00 usly every Cente r 100 unit/mL morning injection Use as directed. insulin 2021- No 8U Inject 8 [facility]-07 08-[facility] (HumaLOG) 00:00: 00:00 subcutaneo M edical 100 unit/mL 00 :00 usly 3 Center injection (three) times daily before meals. insulin 2021- No 33U QD Inject [address] [facility] glargine 5-07 08-25 [facility] (LANTUS, 00:00: 00:00 subcutaneo Me dical SEMGLEE) 00 :00 usly every Cente r 100 unit/mL morning injection Use as directed. insulin 2021- No 8U Inject 8 [facility]-07 08-[facility] (HumaLOG) 00:00: 00:00 subcutaneo M edical 100 unit/mL 00 :00 usly 3 Center injection (three) times daily before meals. insulin 2021- No 33U QD Inject [address] [facility] glargine 5-07 08-25 [facility] (LANTUS, 00:00: 00:00 subcutaneo Me dical SEMGLEE) 00 :00 usly every Cente r 100 unit/mL morning injection Use as directed. insulin 2021- No 8U Inject 8 [facility]-07 08-[facility] (HumaLOG) 00:00: 00:00 subcutaneo M edical 100 unit/mL 00 :00 usly 3 Center injection (three) times daily before meals. insulin 2021- No 33U QD Inject [address] [facility] glargine 5-07 08-25 [facility] (LANTUS, 00:00: 00:00 subcutaneo Me dical SEMGLEE) 00 :00 usly every Cente r 100 unit/mL morning injection Use as directed. insulin 2021- No 8U Inject 8 [facility]-07 08-[facility] (HumaLOG) 00:00: 00:00 subcutaneo M edical 100 unit/mL 00 :00 usly 3 Center injection (three) times daily before meals. insulin 2021-2021- No 33U QD Inject [address] [facility] glargine 5-07 08-25 [facility] (LANTUS, 00:00: 00:00 subcutaneo Me dical SEMGLEE) 00 :00 usly every Cente r 100 unit/mL morning injection Use as directed. insulin 2021-2021- No 8U Inject 8 [facility] 5-07 08-[facility] (HumaLOG) 00:00: 00:00 subcutaneo M edical 100 unit/mL 00 :00 usly 3 Center injection (three) times daily before meals. insulin 2021-2021- No 33U QD Inject [address] [facility] glargine 5-07 08-25 [facility] (LANTUS, 00:00: 00:00 subcutaneo Me dical SEMGLEE) 00 :00 usly every Cente r 100 unit/mL morning injection Use as directed. insulin 2021- No 8U Inject 8 [facility] 5-07 08-[facility] (HumaLOG) 00:00: 00:00 subcutaneo M edical 100 unit/mL 00 :00 usly 3 Center injection (three) times daily before meals. insulin 2021- No 33U QD Inject [address] [facility] glargine 5-07 08-25 [facility] (LANTUS, 00:00: 00:00 subcutaneo Me dical SEMGLEE) 00 :00 usly every Cente r 100 unit/mL morning injection Use as directed. insulin 2021- No 8U Inject 8 [facility]pro 5-07 08-25 [facility] (HumaLOG) 00:00: 00:00 subcutaneo M edical 100 unit/mL 00 :00 usly 3 Center injection (three) times daily before meals. insulin 2021- No 33U QD Inject [address] [facility] glargine 5-07 08-25 [facility] (LANTUS, 00:00: 00:00 subcutaneo Me dical SEMGLEE) 00 :00 usly every Cente r 100 unit/mL morning injection Use as directed. insulin 2021- No 8U Inject 8 [facility]-07 08-[facility] (HumaLOG) 00:00: 00:00 subcutaneo M edical 100 unit/mL 00 :00 usly 3 Center injection (three) times daily before meals. insulin 2021- No 33U QD Inject [address] [facility] glargine 5-07 08-25 [facility] (LANTUS, 00:00: 00:00 subcutaneo Me dical SEMGLEE) 00 :00 usly every Cente r 100 unit/mL morning injection Use as directed. insulin 2021-2021- No 8U Inject 8 [facility] 5-07 08-[facility] (HumaLOG) 00:00: 00:00 subcutaneo M edical 100 unit/mL 00 :00 usly 3 Center injection (three) times daily before meals. insulin 2021-2021- No 33U QD Inject [address] [facility] [address] glargine 5-07 08-25 [facility] (LANTUS, 00:00: 00:00 subcutaneo Me dical SEMGLEE) 00 :00 usly every Cente r 100 unit/mL morning injection Use as directed. insulin 2021- No 8U Inject 8 [facility] 5-07 08-[facility] (HumaLOG) 00:00: 00:00 subcutaneo M edical 100 unit/mL 00 :00 usly 3 Center injection (three) times daily before meals. methocarbam 2021- No 500mg Take [address] [facility] 01-16-17 [facility] (ROBAXIN) 00:00: 23:59 (500 mg Medi devan 500 MG 00 :00 total) by Center tablet mouth 3 (three) times daily as needed for up to 10 days. HYDROcodone 2021- No 1{tbl} Take [address] -acetaminop 01-16-17 tablet by Suzanne keagan [facility] (NORCO 00:00: 23:59 mouth Medic al 5-325) 00 :00 every 6 Center 5-325 mg (six) per tablet hours as needed for up to 10 days. Max Daily Amount: 4 tablets methocarbam 2021- No 500mg Take [address] [facility] -03 16-17 [facility] (ROBAXIN) 00:00: 23:59 (500 mg Medi devan 500 MG 00 :00 total) by Center tablet mouth 3 (three) times daily as needed for up to 10 days. HYDROcodone 2022-0 2022- No 1{tbl} Take [address] -acetaminop 5-07 05-17 tablet by Suzanne barahona (NORCO 00:00: 23:59 mouth Medic al 5-325) 00 :00 every 6 Center 5-325 mg (six) per tablet hours as needed for up to 10 days. Max Daily Amount: 4 tablets methocarbam 2022-0 2022- No 500mg Take [address] [facility] [address] [facility] 5-07 05-17 [facility] (ROBAXIN) 00:00: 23:59 (500 mg Medi devna 500 MG 00 :00 total) by Center tablet mouth 3 (three) times daily as needed for up to 10 days. HYDROcodone 2021-0 2- No 1{tbl} Take [address] -acetaminop 5-07 05-17 tablet by [facility]anne bar[facility]ona (NORCO 00:00: 23:59 mouth Medic al 5-325) 00 :00 every 6 Center 5-325 mg (six) per tablet hours as needed for up to 10 days. Max Daily Amount: 4 tablets methocarbam 2021-0 2021- No 500mg Take [address] [facility] [address] [facility] 5-07 05-17 [facility] (ROBAXIN) 00:00: 23:59 (500 mg Medi devan 500 MG 00 :00 total) by Center tablet mouth 3 (three) times daily as needed for up to 10 days. HYDROcodone 2021-0 2021- No 1{tbl} Take [address] -acetaminop 5-07 05-17 tablet by [facility] bar[facility] (NORCO 00:00: 23:59 mouth Medic al 5-325) 00 :00 every 6 Center 5-325 mg (six) per tablet hours as needed for up to 10 days. Max Daily Amount: 4 tablets methocarbam 2-0 2- No 500mg Take [address] [facility] [address] [facility] 5-07 05-17 [facility] (ROBAXIN) 00:00: 23:59 (500 mg Medi devan 500 MG 00 :00 total) by Center tablet mouth 3 (three) times daily as needed for up to 10 days. HYDROcodone 2-0 2- No 1{tbl} Take [address] -acetaminop 5-07 05-17 tablet by [facility]anne bar[facility]ona (NORCO 00:00: 23:59 mouth Medic al 5-325) 00 :00 every 6 Center 5-325 mg (six) per tablet hours as needed for up to 10 days. Max Daily Amount: 4 tablets methocarbam 2022-0 2022- No 500mg Take [address] [facility] [address] [facility] 5-07 05-17 [facility] (ROBAXIN) 00:00: 23:59 (500 mg Medi devan 500 MG 00 :00 total) by Center tablet mouth 3 (three) times daily as needed for up to 10 days. HYDROcodone 202-0 2022- No 1{tbl} Take [address] -acetaminop 5-07 05-17 tablet by Suzanne bar[facility]ona (NORCO 00:00: 23:59 mouth Medic al 5-325) 00 :00 every 6 Center 5-325 mg (six) per tablet hours as needed for up to 10 days. Max Daily Amount: 4 tablets methocarbam 2021-0 2- No 500mg Take [address] [facility] [address] [facility] 5-07 05-17 [facility] (ROBAXIN) 00:00: 23:59 (500 mg Medi devan 500 MG 00 :00 total) by Center tablet mouth 3 (three) times daily as needed for up to 10 days. HYDROcodone 2021-0 2- No 1{tbl} Take [address] -acetaminop 5-07 05-17 tablet by [facility] bar[facility] (NORCO 00:00: 23:59 mouth Medic al 5-325) 00 :00 every 6 Center 5-325 mg (six) per tablet hours as needed for up to 10 days. Max Daily Amount: 4 tablets methocarbam 2021-0 2- No 500mg Take [address] [facility] [address] [facility] 5-07 05-17 [facility] (ROBAXIN) 00:00: 23:59 (500 mg Medi devan 500 MG 00 :00 total) by Center tablet mouth 3 (three) times daily as needed for up to 10 days. HYDROcodone 2-0 2022- No 1{tbl} Take [address] -acetaminop 5-07 05-17 tablet by Suzanne bar[facility]ona (NORCO 00:00: 23:59 mouth Medic al 5-325) 00 :00 every 6 Center 5-325 mg (six) per tablet hours as needed for up to 10 days. Max Daily Amount: 4 tablets methocarbam 2022-0 2022- No 500mg Take [address] [facility] [address] [facility] o[facility] 5-07 05-17 [facility] (ROBAXIN) 00:00: 23:59 (500 mg Medi devan 500 MG 00 :00 total) by [facility] tablet mouth 3 (three) times daily as needed for up to 10 days. HYDROcodone 2021-0 2022- No 1{tbl} Take [address] -acetaminop 5-07 05-17 tablet by Suzanne barahona ([facility] 00:00: 23:59 mouth Medic al 5-325) 00 :00 every 6 Center 5-325 mg (six) per tablet hours as needed for up to 10 days. Max Daily Amount: 4 tablets methocarbam 2021-0 2- No 500mg Take [address] [facility] [address] o[facility] 5-07 05-17 [facility] (ROBAXIN) 00:00: 23:59 (500 mg Medi devan 500 MG 00 :00 total) by [facility] tablet mouth 3 (three) times daily as needed for up to 10 days. HYDROcodone 2021-0 2021- No 1{tbl} Take [address] -acetaminop 5-07 05-17 tablet by Suzanne barahona ([facility] 00:00: 23:59 mouth Medic al 5-325) 00 :00 every 6 Center 5-325 mg (six) per tablet hours as needed for up to 10 days. Max Daily Amount: 4 tablets methocarbam 2021-0 2021- No 500mg Take [address] [facility] 5-07 05-17 [facility] (ROBAXIN) 00:00: 23:59 (500 mg Medi devan 500 MG 00 :00 total) by [facility] tablet mouth 3 (three) times daily as needed for up to 10 days. HYDROcodone 2021-0 2- No 1{tbl} Take [address] -acetaminop 5-07 05-17 tablet by Suzanne barahona ([facility] 00:00: 23:59 mouth Medic al 5-325) 00 :00 every 6 Center 5-325 mg (six) per tablet hours as needed for up to 10 days. Max Daily Amount: 4 tablets methocarbam 2-0 2- No 500mg Take [address] o[facility] 5-07 05-17 [facility] (ROBAXIN) 00:00: 23:59 (500 mg Medi devan 500 MG 00 :00 total) by [facility] tablet mouth 3 (three) times daily as needed for up to 10 days. HYDROcodone 2021-0 2- No 1{tbl} Take [address] -acetaminop 5-07 05-17 tablet by Suzanne barahona ([facility] 00:00: 23:59 mouth Medic al 5-325) 00 :00 every 6 Center 5-325 mg (six) per tablet hours as needed for up to 10 days. Max Daily Amount: 4 tablets methocarbam 2021-0 2022- No 500mg Take [address] [facility] [address] [facility] 5-07 05-17 [facility] ([facility] 00:00: 23:59 (500 mg Medi devan 500 MG 00 :00 total) by Center tablet mouth 3 (three) times daily as needed for up to 10 days. HYDROcodone 2021-2021- No 1{tbl} Take [address] [facility] -acetaminop 5-07 05-17 tablet by Suzanne barahona ([facility]CO 00:00: 23:59 mouth Medic al 5-325) 00 :00 every 6 Center 5-325 mg (six) per tablet hours as needed for up to 10 days. Max Daily Amount: 4 tablets methocarbam 2021-0 2021- No 500mg Take [address] [facility] [address] [facility] 5-07 05-17 [facility] ([facility]) 00:00: 23:59 (500 mg Medi devan 500 MG 00 :00 total) by Center tablet mouth 3 (three) times daily as needed for up to 10 days. HYDROcodone 2021-0 2021- No 1{tbl} Take [address] -acetaminop 5-07 05-17 tablet by Suzanne barahona ([facility] 00:00: 23:59 mouth Medic al 5-325) 00 :00 every 6 Center 5-325 mg (six) per tablet hours as needed for up to 10 days. Max Daily Amount: 4 tablets methocarbam 2021-0 2- No 500mg Take [address] [facility] [address] [facility] 5-07 05-17 [facility] ([facility]) 00:00: 23:59 (500 mg Medi devan 500 MG 00 :00 total) by Center tablet mouth 3 (three) times daily as needed for up to 10 days. HYDROcodone 2021-0 2- No 1{tbl} Take [address] -acetaminop 5-07 05-17 tablet by Suzanne barahona ([facility] 00:00: 23:59 mouth Medic al 5-325) 00 :00 every 6 Center 5-325 mg (six) per tablet hours as needed for up to 10 days. Max Daily Amount: 4 tablets methocarbam 2021- No 500mg Take [address] [facility] [address] [facility] 01-16-17 [facility] ([facility]) 00:00: 23:59 (500 mg Medi devan 500 MG 00 :00 total) by Center tablet mouth 3 (three) times daily as needed for up to 10 days. HYDROcodone 2021- No 1{tbl} Take [address] -acetaminop 01-16-17 tablet by Suzanne barahona ([facility] 00:00: 23:59 mouth Medic al 5-325) 00 :00 every 6 Center 5-325 mg (six) per tablet hours as needed for up to 10 days. Max Daily Amount: 4 tablets lisinopriL 2021-2021- No 5mg QD Take [address] [facility] (PRINIVIL,Z 5-05 05-07 tablet (5 Suzanne kes ESTRIL) 5 00:00: 00:00 mg total) Me dical MG tablet 00 :00 by mouth Center daily. lisinopriL 2021-0 2021- No 5mg QD Take [address] [facility] (PRINIVIL,Z 5-05 05-07 tablet (5 Suzanne kes ESTRIL) 5 00:00: 00:00 mg total) Me dical MG tablet 00 :00 by mouth Center daily. lisinopriL 2021-0 2021- No 5mg QD Take [address] [facility] (PRINIVIL,Z 5-05 05-07 tablet (5 Suzanne kes ESTRIL) 5 00:00: 00:00 mg total) Me dical MG tablet 00 :00 by mouth [facility] daily. lisinopriL 2021-0 2022- No 5mg QD Take [address] [facility] (PRINIVIL,Z 5-05 05-07 tablet (5 Suzanne kes ESTRIL) 5 00:00: 00:00 mg total) Me dical MG tablet 00 :00 by mouth [facility] daily. lisinopriL 2021-0 2022- No 5mg QD Take [address] [facility] (PRINIVIL,Z 5-05 05-07 tablet (5 Suzanne kes ESTRIL) 5 00:00: 00:00 mg total) Me dical MG tablet 00 :00 by mouth Center daily. lisinopriL 2022-0 2022- No 5mg QD Take [address] [facility] (PRINIVIL,Z 5-05 05-07 tablet (5 Suzanne kes ESTRIL) 5 00:00: 00:00 mg total) Me dical MG tablet 00 :00 by mouth [facility] daily. lisinopriL 2021-0 2022- No 5mg QD Take [address] [facility] (PRINIVIL,Z 5-05 05-07 tablet (5 Suzanne kes ESTRIL) 5 00:00: 00:00 mg total) Me dical MG tablet 00 :00 by mouth Center daily. lisinopriL 2-0 2022- No 5mg QD Take [address] [facility] (PRINIVIL,Z 5-05 05-07 tablet (5 Suzanne kes ESTRIL) 5 00:00: 00:00 mg total) Me dical MG tablet 00 :00 by mouth Center daily. lisinopriL 2-0 2022- No 5mg QD Take [address] [facility] (PRINIVIL,Z 5-05 05-07 tablet (5 Suzanne kes ESTRIL) 5 00:00: 00:00 mg total) Me dical MG tablet 00 :00 by mouth Center daily. lisinopriL 2-0 2022- No 5mg QD Take [address] [facility] (PRINIVIL,Z 5-05 05-07 tablet (5 Suzanne kes ESTRIL) 5 00:00: 00:00 mg total) Me dical MG tablet 00 :00 by mouth Center daily. lisinopriL 2-0 2022- No 5mg QD Take [address] [facility] (PRINIVIL,Z 5-05 05-07 tablet (5 Suzanne kes ESTRIL) 5 00:00: 00:00 mg total) Me dical MG tablet 00 :00 by mouth Center daily. lisinopriL 2022-0 2022- No 5mg QD Take [address] [facility] (PRINIVIL,Z 5-05 05-07 tablet (5 Suzanne kes ESTRIL) 5 00:00: 00:00 mg total) Me dical MG tablet 00 :00 by mouth Center daily. lisinopriL 2-0 2022- No 5mg QD Take [address] [facility] (PRINIVIL,Z 5-05 05-07 tablet (5 Suzanne kes ESTRIL) 5 00:00: 00:00 mg total) Me dical MG tablet 00 :00 by mouth Center daily. lisinopriL 2021- No 5mg QD Take [address] [facility] (PRINIVIL,Z 01-14 05-07 tablet (5 Suzanne kes ESTRIL) 5 00:00: 00:00 mg total) Me dical MG tablet 00 :00 by mouth Center daily. lisinopriL 2021- No 5mg QD Take [address] [facility] (PRINIVIL,Z 01-14-07 tablet (5 Suzanne kes ESTRIL) 5 00:00: 00:00 mg total) Me dical MG tablet 00 :00 by mouth Center daily. lisinopriL 2021- No 5mg QD Take [address] [facility] (PRINIVIL,Z 01-14-07 tablet (5 Suzanne kes ESTRIL) 5 00:00: 00:00 mg total) Me dical MG tablet 00 :00 by mouth Center daily. atorvastati 2021- No 20mg QD Take [address] [facility] (LIPITOR) 01-13 tablet (20 [facility] 20 MG 00:00: 00:00 mg total) Medica l tablet 00 :00 by mouth Center nightly. gabapentin 2021- No 100mg Q.[id number] Take [address] [facility] (NEURONTIN) 01-13 [id number] [facility] 100 MG 00:00: 00:00 3D (100 mg Medical capsule 00 :00 total) by Center mouth 3 (three) times daily. insulin 2021- No 28U QD Inject [address] [facility] glargine 01-13 [facility] (LANTUS, 00:00: 00:00 subcutaneo Me dical SEMGLEE) 00 :00 usly every Cente r 100 unit/mL morning injection Use as directed. methocarbam 2021- No 500mg Take [address] [facility] [address] [facility] 01-1307 [facility] ([facility]) 00:00: 00:00 (500 mg Medi devan 500 MG 00 :00 total) by Center tablet mouth 3 (three) times daily as needed for up to 10 days. atorvastati 2- No 20mg QD Take [address] [facility] (LIPITOR) 5-04 05-07 tablet (20 [facility] 20 MG 00:00: 00:00 mg total) Medica l tablet 00 :00 by mouth Center nightly. gabapentin 2021-0 2021- No 100mg Q.[id number] Take [address] [facility] (NEURONTIN) 5-04 05-07 [id number] [facility] 100 MG 00:00: 00:00 3D (100 mg Medical capsule 00 :00 total) by Center mouth 3 (three) times daily. insulin 2021-2021- No 28U QD Inject [address] [facility] glargine 5-04 05-07 [facility] (LANTUS, 00:00: 00:00 subcutaneo Me dical SEMGLEE) 00 :00 usly every Cente r 100 unit/mL morning injection Use as directed. methocarbam 2021-2021- No 500mg Take [address] [facility] [address] [facility] 5- 05-07 [facility] ([facility]) 00:00: 00:00 (500 mg Medi devan 500 MG 00 :00 total) by Center tablet mouth 3 (three) times daily as needed for up to 10 days. atorvastati 2021-0 2021- No 20mg QD Take [address] [facility] (LIPITOR) 5- 05-07 tablet (20 [facility] 20 MG 00:00: 00:00 mg total) Medica l tablet 00 :00 by mouth Center nightly. gabapentin 2021-2021- No 100mg Q.[id number] Take [address] [facility] (NEURONTIN) 5-04 05-07 [id number] [facility] 100 MG 00:00: 00:00 3D (100 mg Medical capsule 00 :00 total) by Center mouth 3 (three) times daily. insulin 2021-0 2021- No 28U QD Inject [address] [facility] glargine 5-04 05-07 [facility] (LANTUS, 00:00: 00:00 subcutaneo Me dical SEMGLEE) 00 :00 usly every Cente r 100 unit/mL morning injection Use as directed. methocarbam 2021-0 2021- No 500mg Take [address] [facility] [address] [facility] 5-04 05-07 [facility] ([facility]) 00:00: 00:00 (500 mg Medi devan 500 MG 00 :00 total) by Center tablet mouth 3 (three) times daily as needed for up to 10 days. atorvastati 202-0 202- No 20mg QD Take [address] [facility] (LIPITOR) 5- 05-07 tablet (20 [facility] 20 MG 00:00: 00:00 mg total) Medica l tablet 00 :00 by mouth Center nightly. gabapentin 2021-2021- No 100mg Q.[id number] Take [address] [facility] (NEURONTIN) 5- 05-07 [id number] [facility] 100 MG 00:00: 00:00 3D (100 mg Medical capsule 00 :00 total) by Center mouth 3 (three) times daily. insulin 2021-2021- No 28U QD Inject [address] [facility] glargine 5- 05-07 [facility] (LANTUS, 00:00: 00:00 subcutaneo Me dical SEMGLEE) 00 :00 usly every Cente r 100 unit/mL morning injection Use as directed. methocarbam 2021- No 500mg Take [address] [facility] [address] [facility] - 05-07 [facility] ([facility]) 00:00: 00:00 (500 mg Medi devan 500 MG 00 :00 total) by Center tablet mouth 3 (three) times daily as needed for up to 10 days. atorvastati 2021-2021- No 20mg QD Take [address] [facility] (LIPITOR) 5 05-07 tablet (20 [facility] 20 MG 00:00: 00:00 mg total) Medica l tablet 00 :00 by mouth Center nightly. gabapentin 2021-2021- No 100mg Q.[id number] Take [address] [facility] (NEURONTIN) 5- 05-07 [id number] [facility] 100 MG 00:00: 00:00 3D (100 mg Medical capsule 00 :00 total) by Center mouth 3 (three) times daily. insulin 2021-2021- No 28U QD Inject [address] [facility] glargine 5- 05-07 [facility] ([facility], 00:00: 00:00 subcutaneo Me dical SEMGLEE) 00 :00 usly every Cente r 100 unit/mL morning injection Use as directed. methocarbam 2021-0 2022- No 500mg Take [address] [facility] [address] [facility] 5-04 05-07 [facility] ([facility]) 00:00: 00:00 (500 mg Medi devan 500 MG 00 :00 total) by Center tablet mouth 3 (three) times daily as needed for up to 10 days. atorvastati 2021-2- No 20mg QD Take [address] [facility] (LIPITOR) 5-04 05-07 tablet (20 [facility] 20 MG 00:00: 00:00 mg total) Medica l tablet 00 :00 by mouth Center nightly. gabapentin 2021-2021- No 100mg Q.[id number] Take [address] [facility] (NEURONTIN) 5- 05-07 [id number] [facility] MG 00:00: 00:00 3D (100 mg Medical capsule 00 :00 total) by Center mouth 3 (three) times daily. insulin 2021-2021- No 28U QD Inject [address] [facility] glargine 5- 05-07 [facility] ([facility]US, 00:00: 00:00 subcutaneo Me dical SEMGLEE) 00 :00 usly every Cente r 100 unit/mL morning injection Use as directed. methocarbam 2021-2021- No 500mg Take [address] [facility] [address] [facility] 5-04 05-07 [facility] ([facility]) 00:00: 00:00 (500 mg Medi devan 500 MG 00 :00 total) by Center tablet mouth 3 (three) times daily as needed for up to 10 days. atorvastati 2021-2021- No 20mg QD Take [address] [facility] (LIPITOR) 5- 05-07 tablet (20 [facility] 20 MG 00:00: 00:00 mg total) Medica l tablet 00 :00 by mouth Center nightly. gabapentin 2021-0 2- No 100mg Q.[id number] Take [address] [facility] (NEURONTIN) 5-04 05-07 [id number] [facility] 100 MG 00:00: 00:00 3D (100 mg Medical capsule 00 :00 total) by Center mouth 3 (three) times daily. insulin 2021-0 2- No 28U QD Inject [address] [facility] glargine 5-04 05-07 [facility] ([facility], 00:00: 00:00 subcutaneo Me dical SEMGLEE) 00 :00 usly every Cente r 100 unit/mL morning injection Use as directed. methocarbam 2022-0 2- No 500mg Take [address] [facility] [address] [facility] 5- 05-07 [facility] ([facility]) 00:00: 00:00 (500 mg Medi devan 500 MG 00 :00 total) by Center tablet mouth 3 (three) times daily as needed for up to 10 days. atorvastati 2021-0 2022- No 20mg QD Take [address] [facility] (LIPITOR) 5- 05-07 tablet (20 [facility] 20 MG 00:00: 00:00 mg total) Medica l tablet 00 :00 by mouth Center nightly. gabapentin 2021-0 2021- No 100mg Q.[id number] Take [address] [facility] (NEURONTIN) - 05- [id number] [facility] 100 MG 00:00: 00:00 3D (100 mg Medical capsule 00 :00 total) by Center mouth 3 (three) times daily. insulin 2021-2021- No 28U QD Inject [address] [facility] glargine - 05-07 [facility] ([facility], 00:00: 00:00 subcutaneo Me dical SEMGLEE) 00 :00 usly every Cente r 100 unit/mL morning injection Use as directed. methocarbam 2021-0 2021- No 500mg Take [address] [facility] [address] [facility] - 05-07 [facility] ([facility]) 00:00: 00:00 (500 mg Medi devan 500 MG 00 :00 total) by Center tablet mouth 3 (three) times daily as needed for up to 10 days. atorvastati 2021-0 2022- No 20mg QD Take [address] [facility] (LIPITOR) 5- 05-07 tablet (20 [facility] 20 MG 00:00: 00:00 mg total) Medica l tablet 00 :00 by mouth Center nightly. gabapentin 2021-0 2- No 100mg Q.[id number] Take [address] [facility] (NEURONTIN) 5- 05-07 [id number] [facility] MG 00:00: 00:00 3D (100 mg Medical capsule 00 :00 total) by Center mouth 3 (three) times daily. insulin 2021-2021- No 28U QD Inject [address] [facility] glargine 5- 05-07 [facility] ([facility], 00:00: 00:00 subcutaneo Me dical SEMGLEE) 00 :00 usly every Cente r 100 unit/mL morning injection Use as directed. methocarbam 2021-0 2021- No 500mg Take [address] [facility] [address] [facility] - 05-07 [facility] ([facility]) 00:00: 00:00 (500 mg Medi devan 500 MG 00 :00 total) by Center tablet mouth 3 (three) times daily as needed for up to 10 days. atorvastati 2021-2021- No 20mg QD Take [address] [facility] (LIPITOR) 01-13 05-07 tablet (20 [facility] 20 MG 00:00: 00:00 mg total) Medica l tablet 00 :00 by mouth Center nightly. gabapentin 2021-2021- No 100mg Q.[id number] Take [address] [facility] (NEURONTIN) 01-13-07 [id number] [facility] 100 MG 00:00: 00:00 3D (100 mg Medical capsule 00 :00 total) by Center mouth 3 (three) times daily. insulin 2021-2021- No 28U QD Inject [address] [facility] glargine 5- 05-07 [facility] ([facility], 00:00: 00:00 subcutaneo Me dical SEMGLEE) 00 :00 usly every Cente r 100 unit/mL morning injection Use as directed. methocarbam 2021-0 2021- No 500mg Take [address] [facility] [address] [facility] - 05-07 [facility] ([facility]) 00:00: 00:00 (500 mg Medi devan 500 MG 00 :00 total) by Center tablet mouth 3 (three) times daily as needed for up to 10 days. atorvastati 2021-0 2021- No 20mg QD Take [address] [facility] (LIPITOR) 5- 05-07 tablet (20 [facility] 20 MG 00:00: 00:00 mg total) Medica l tablet 00 :00 by mouth Center nightly. gabapentin 2021-0 2- No 100mg Q.[id number] Take [address] [facility] (NEURONTIN) 5- 05-07 [id number] [facility] 100 MG 00:00: 00:00 3D (100 mg Medical capsule 00 :00 total) by Center mouth 3 (three) times daily. insulin 2021- No 28U QD Inject [address] [facility] glargine 5-04 05-07 [facility] ([facility], 00:00: 00:00 subcutaneo Me dical SEMGLEE) 00 :00 usly every Cente r 100 unit/mL morning injection Use as directed. methocarbam 2021-2021- No 500mg Take [address] [facility] [address] [facility] 5- 05-07 [facility] ([facility]) 00:00: 00:00 (500 mg Medi devan 500 MG 00 :00 total) by Center tablet mouth 3 (three) times daily as needed for up to 10 days. atorvastati 2021-2021- No 20mg QD Take [address] [facility] (LIPITOR) 5- 05-07 tablet (20 [facility] 20 MG 00:00: 00:00 mg total) Medica l tablet 00 :00 by mouth Center nightly. gabapentin 2021- No 100mg Q.[id number] Take [address] [facility] (NEURONTIN) 5- 05-07 [id number] [facility] 100 MG 00:00: 00:00 3D (100 mg Medical capsule 00 :00 total) by Center mouth 3 (three) times daily. insulin 2021- No 28U QD Inject [address] [facility] glargine 5- 05-07 [facility] ([facility], 00:00: 00:00 subcutaneo Me dical SEMGLEE) 00 :00 usly every Cente r 100 unit/mL morning injection Use as directed. methocarbam 2021-2021- No 500mg Take [address] [facility] [address] [facility] 5- 05-07 [facility] ([facility]) 00:00: 00:00 (500 mg Medi devan 500 MG 00 :00 total) by Center tablet mouth 3 (three) times daily as needed for up to 10 days. atorvastati 2021-2021- No 20mg QD Take [address] [facility] (LIPITOR) 5-04 05-07 tablet (20 [facility] 20 MG 00:00: 00:00 mg total) Medica l tablet 00 :00 by mouth Center nightly. gabapentin 2021-0 2021- No 100mg Q.[id number] Take [address] [facility] (NEURONTIN) 5- 05-07 [id number] [facility] 100 MG 00:00: 00:00 3D (100 mg Medical capsule 00 :00 total) by Center mouth 3 (three) times daily. insulin 2021-2021- No 28U QD Inject [address] [facility] glargine 5- 05-07 [facility] ([facility], 00:00: 00:00 subcutaneo Me dical SEMGLEE) 00 :00 usly every Cente r 100 unit/mL morning injection Use as directed. methocarbam 2021-2021- No 500mg Take [address] [facility] [address] [facility] -12 15-07 [facility] ([facility]) 00:00: 00:00 (500 mg Medi devan 500 MG 00 :00 total) by Center tablet mouth 3 (three) times daily as needed for up to 10 days. atorvastati 2021-2021- No 20mg QD Take [address] [facility] (LIPITOR) 01-13-07 tablet (20 [facility] 20 MG 00:00: 00:00 mg total) Medica l tablet 00 :00 by mouth Center nightly. gabapentin 2021-2021- No 100mg Q.[id number] Take [address] [facility] (NEURONTIN) 01-13 05-07 [id number] [facility] 100 MG 00:00: 00:00 3D (100 mg Medical capsule 00 :00 total) by Center mouth 3 (three) times daily. insulin 2021-2021- No 28U QD Inject [address] [facility] glargine 5- 05-07 [facility] ([facility], 00:00: 00:00 subcutaneo Me dical SEMGLEE) 00 :00 usly every Cente r 100 unit/mL morning injection Use as directed. methocarbam 2021-0 2021- No 500mg Take [address] [facility] [address] [facility] - 05-07 [facility] ([facility]) 00:00: 00:00 (500 mg Medi devan 500 MG 00 :00 total) by Center tablet mouth 3 (three) times daily as needed for up to 10 days. atorvastati 202-0 2022- No 20mg QD Take [address] [facility] (LIPITOR) 5-04 05-07 tablet (20 [facility] 20 MG 00:00: 00:00 mg total) Medica l tablet 00 :00 by mouth Center nightly. gabapentin 2021-0 2021- No 100mg Q.[id number] Take [address] [facility] (NEURONTIN) 5- 05-07 [id number] [facility] 100 MG 00:00: 00:00 3D (100 mg Medical capsule 00 :00 total) by Center mouth 3 (three) times daily. insulin 2021-0 2021- No 28U QD Inject [address] [facility] glargine 5- 05-07 [facility] ([facility], 00:00: 00:00 subcutaneo Me dical SEMGLEE) 00 :00 usly every Cente r 100 unit/mL morning injection Use as directed. methocarbam 2021-2021- No 500mg Take [address] [facility] [address] [facility] - 05-07 [facility] ([facility]) 00:00: 00:00 (500 mg Medi devan 500 MG 00 :00 total) by Center tablet mouth 3 (three) times daily as needed for up to 10 days. atorvastati 2021-0 2021- No 20mg QD Take [address] [facility] (LIPITOR) 5- 05-07 tablet (20 [facility] 20 MG 00:00: 00:00 mg total) Medica l tablet 00 :00 by mouth Center nightly. gabapentin 2021-0 2021- No 100mg Q.[id number] Take [address] [facility] (NEURONTIN) 5-04 05-07 [id number] [facility] 100 MG 00:00: 00:00 3D (100 mg Medical capsule 00 :00 total) by Center mouth 3 (three) times daily. insulin 2021-0 2021- No 28U QD Inject [address] [facility] glargine 5-04 05-07 [facility] ([facility], 00:00: 00:00 subcutaneo Me dical SEMGLEE) 00 :00 usly every Cente r 100 unit/mL morning injection Use as directed. methocarbam 2021-0 2021- No 500mg Take [address] [facility] [address] [facility] 5-04 05-07 [facility] ([facility]) 00:00: 00:00 (500 mg Medi devan 500 MG 00 :00 total) by Center tablet mouth 3 (three) times daily as needed for up to 10 days. lisinopril 2022-0 No 1mg 20 mg 3-05 tablet 00:00: 00 metformin 2022-0 No 1mg 1,000 mg 3-05 tablet 00:00: 00 glipizide 2-0 No 1mg ER 5 mg 3-05 tablet, 00:00: extended 00 release 24 hr Dose 2022-0 No Unknown 3-05 00:00: 00 [...] Dose 2022-0 No Unknown 3-05 00:00: 00 lisinopril 2-0 No 1mg 20 [...] Dose 2022-0 No Unknown 3-05 00:00: 00 lisinopril 2022-0 No 1mg 20 mg 3-05 tablet 00:00: 00 metformin 2022-0 No 1mg 1,000 mg 3-05 tablet 00:00: 00 Dose 2022-0 No Unknown 3-05 [...] Dose 2022-0 No Unknown 3-05 00:00: 00 lisinopril 2022-0 No 1mg 20 mg 3-05 tablet 00:00: 00 metformin 2022-0 No 1mg 1,000 mg 3-05 tablet 00:00: 00 Dose 2022-0 No Unknown 3-05 [...] Dose 2022-0 No Unknown 3-05 00:00: 00 lisinopril 2022-0 No 1mg 20 mg 3-05 tablet 00:00: 00 metformin 2022-0 No 1mg 1,000 mg 3-05 tablet 00:00: 00 Dose 2022-0 No Unknown 3-05 [...] 2022-0 No Unknown 3-05 00:00: 00 Dose 2-0 No Unknown 3-05 00:00: 00 Dose 2-0 No Unknown 3-05 00:00: 00 lisinopril 2021-0 No 1mg 20 mg 3-05 tablet 00:00: 00 metformin 2-0 No 1mg 1,000 mg 3-05 tablet 00:00: 00 Dose 2022-0 No Unknown 3-05 [...] Dose 2022-0 No Unknown 3-05 00:00: 00 cyclobenzap 2021-0 Yes 10mg QD Take 10 mg [facility] rine 1-24 by [facility] (Flexeril) 00:00: at night 10 MG 00 if needed. tablet etodolac 0 Yes 400mg Take 400 UT (Lodine) 1-24 mg by [facility] 400 MG 00:00: mouth in tablet 00 the morning and 400 mg in the evening. Take with meals. triamcinolo 2021-0 No 1% ne 4-06 acetonide 00:00: 0.025 % 00 topical cream Dose 2020-0 No Unknown 4-06 00:00: 00 Dose 2020-0 No Unknown 4-06 00:00: 00 triamcinolo 2020-0 No 1% ne 4-06 acetonide 00:00: 0.025 % 00 topical cream Dose 2020-0 No Unknown 4-06 00:00: 00 Dose 2020-0 No Unknown 4-06 00:00: 00 triamcinolo 2020-0 No 1% ne 4-06 acetonide 00:00: 0.025 % 00 topical cream Dose 2020-0 No Unknown 4-06 00:00: 00 Dose 2020-0 No Unknown 4-06 00:00: 00 triamcinolo 2020-0 No 1% ne 4-06 acetonide 00:00: 0.025 % 00 topical cream Dose 2020-0 No Unknown 4-06 00:00: 00 Dose 2020-0 No Unknown 4-06 00:00: 00 triamcinolo 2020-0 No 1% ne 4-06 acetonide 00:00: 0.025 % 00 topical cream Dose 2020-0 No Unknown 4-06 00:00: 00 Dose 2020-0 No Unknown 4-06 00:00: 00 triamcinolo 2020-0 No 1% ne 4-06 acetonide 00:00: 0.025 % 00 topical cream Dose 2020-0 No Unknown 4-06 00:00: 00 Dose 2020-0 No Unknown 4-06 00:00: 00 metformin 2019-1 No 1mg 1,000 mg 0-06 tablet 00:00: 00 metformin 2019-1 No 1mg 1,000 mg 0-06 tablet 00:00: 00 metformin 2020-1 No 1mg 1,000 mg 0-06 tablet 00:00: 00 metformin 2020-1 No 1mg 1,000 mg 0-06 tablet 00:00: 00 metformin 2020-1 No 1mg 1,000 mg 0-06 tablet 00:00: 00 metformin 2020-1 No 1mg 1,000 mg 0-06 tablet 00:00: 00 glipizide 2019-1 No 1mg ER 5 mg 0-01 tablet, 00:00: extended 00 release 24 hr glipizide 2020-1 No 1mg ER 5 mg 0-01 tablet, 00:00: extended 00 release 24 hr Dose 2020-1 No Unknown 0-01 00:00: 00 Dose 2020-1 No Unknown 0-01 00:00: 00 Dose 2020-1 No Unknown 0-01 00:00: 00 Dose 2020-1 No Unknown 0-01 00:00: 00 glipizide 2020-0 No 1mg ER [...] 12mg 100 mg 5-28 capsule 00:00: 00 glipizide 2020-0 No 1mg ER 5 mg 5-28 tablet, 00:00: extended 00 release 24 hr metformin 2020-0 No 1mg 1,000 mg 5-28 tablet 00:00: 00 gabapentin 2020-0 No 12mg 100 mg 5-28 capsule 00:00: 00 glipizide 2020-0 No 1mg ER 5 mg 5-28 tablet, 00:00: extended 00 release 24 hr metformin 2020-0 No 1mg 1,000 mg 5-28 tablet 00:00: 00 gabapentin 2020-0 No 12mg 100 mg 5-28 capsule 00:00: 00 glipizide 2020-0 No 1mg ER 5 mg 5-28 tablet, 00:00: extended 00 release 24 hr metformin 2020-0 No 1mg 1,000 mg 5-28 tablet 00:00: 00 gabapentin 2020-0 No 12mg 100 mg 5-28 capsule 00:00: 00 glipizide 2020-0 No 1mg ER 5 mg 5-28 tablet, 00:00: extended 00 release 24 hr metformin 2020-0 No 1mg 1,000 mg 5-28 tablet 00:00: 00 gabapentin 2020-0 No 12mg 100 mg 5-28 capsule 00:00: 00 glipizide 2020-0 No 1mg ER 5 mg 5-28 tablet, 00:00: extended 00 release 24 hr metformin 2020-0 No 1mg 1,000 mg 5-28 tablet 00:00: 00 gabapentin 2020-0 No 12mg 100 mg 5-28 capsule 00:00: 00 glimepiride 2020-0 No 1mg 4 mg tablet 3-24 00:00: 00 metformin 2020-0 No 1mg 1,000 mg 3-24 tablet 00:00: 00 glimepiride 2020-0 No 1mg 4 mg tablet 3-24 00:00: 00 metformin 2020-0 No 1mg 1,000 mg 3-24 tablet 00:00: 00 glimepiride 2020-0 No 1mg 4 mg tablet 3-24 00:00: 00 metformin 2020-0 No 1mg 1,000 mg 3-24 tablet 00:00: 00 glimepiride 2020-0 No 1mg 4 mg tablet 3-24 00:00: 00 metformin 2020-0 No 1mg 1,000 mg 3-24 tablet 00:00: 00 glimepiride 2020-0 No 1mg 4 mg tablet 3-24 00:00: 00 metformin 2020-0 No 1mg 1,000 mg 3-24 tablet 00:00: 00 glimepiride 2020-0 No 1mg 4 mg tablet 3-24 00:00: 00 metformin 2020-0 No 1mg 1,000 mg 3-24 tablet 00:00: 00 glimepiride 2019-1 No 1mg 4 mg tablet 1-30 00:00: 00 metformin 2019-1 No 1mg 1,000 mg 1-30 tablet 00:00: 00 glimepiride 2019-1 No 1mg 4 mg tablet 1-30 00:00: 00 metformin 2019-1 No 1mg 1,000 mg 1-30 tablet 00:00: 00 glimepiride 2019-1 No 1mg 4 mg tablet 1-30 00:00: 00 metformin 2019-1 No 1mg 1,000 mg 1-30 tablet 00:00: 00 glimepiride 2019-1 No 1mg 4 mg tablet 1-30 00:00: 00 metformin 2019-1 No 1mg 1,000 mg 1-30 tablet 00:00: 00 glimepiride 2019-1 No 1mg 4 mg tablet 1-30 00:00: 00 metformin 2019-1 No 1mg 1,000 mg 1-30 tablet 00:00: 00 glimepiride 2019-1 No 1mg 4 mg tablet 1-30 00:00: 00 metformin 2019-1 No 1mg 1,000 mg 1-30 tablet 00:00: 00 glimepiride 2019-0 No 1mg 4 mg tablet 06-05 00:00: 00 glimepiride 2019-0 No 1mg 4 mg tablet 06-05 00:00: 00 metformin 2019-0 No 1mg 1,000 mg 9-24 tablet 00:00: 00 metformin 2019-0 No 1mg 1,000 mg 9-24 tablet 00:00: 00 gabapentin 2019-0 No 1mg 100 mg 9-24 capsule 00:00: 00 glimepiride 2019-0 No 1mg 4 mg tablet 06-05 00:00: 00 glimepiride 2019-0 No 1mg 4 mg tablet 06-05 00:00: 00 glimepiride 2019-0 No 1mg 4 mg tablet 06-05 00:00: 00 metformin 2019-0 No 1mg 1,000 mg 9-24 tablet 00:00: 00 metformin 2019-0 No 1mg 1,000 mg 9-24 tablet 00:00: 00 gabapentin 2019-0 No 1mg 100 mg 9-24 capsule 00:00: 00 glimepiride 2019-0 No 1mg 4 mg tablet 06-05 00:00: 00 glimepiride 2019-0 No 1mg 4 mg tablet 06-05 00:00: 00 glimepiride 2019-0 No 1mg 4 mg tablet 06-05 00:00: 00 metformin 2019-0 No 1mg 1,000 mg 9-24 tablet 00:00: 00 metformin 2019-0 No 1mg 1,000 mg 9-24 tablet 00:00: 00 gabapentin 2019-0 No 1mg 100 mg 9-24 capsule 00:00: 00 metformin 2019-0 No 1mg 1,000 mg 9-24 tablet 00:00: 00 metformin 2019-0 No 1mg 1,000 mg 9-24 tablet 00:00: 00 glimepiride 2019-0 No 1mg 4 mg tablet 06-05 00:00: 00 glimepiride 2019-0 No 1mg 4 mg tablet 06-05 00:00: 00 metformin 2019-0 No 1mg 1,000 mg 9-24 tablet 00:00: 00 metformin 2019-0 No 1mg 1,000 mg 9-24 tablet 00:00: 00 gabapentin 2019-0 No 1mg 100 mg 9-24 capsule 00:00: 00 gabapentin 2019-0 No 1mg 100 mg 9-24 capsule 00:00: 00 glimepiride 2019-0 No 1mg 4 mg tablet 06-05 00:00: 00 glimepiride 2019-0 No 1mg 4 mg tablet 06-05 00:00: 00 metformin 2019-0 No 1mg 1,000 mg 9-24 tablet 00:00: 00 metformin 2019-0 No 1mg 1,000 mg 9-24 tablet 00:00: 00 gabapentin 2019-0 No 1mg 100 mg 9-24 capsule 00:00: 00 Immunizations Ordered Immunization Filled Immunization Date Status Commen ts Source Name Name COVID-19 Les 12 & 2021-09-08 Completed [facility] Vaccination (RED 00:00:00 CAP) [place] COVID-19 2021-09-08 Completed Vaccine 00:00:00 [place] COVID-19 2021-09-08 Completed Vaccine 00:00:00 [place] COVID-19 2021-09-08 Completed Vaccine 00:00:00 Les COVID-19 2021-09-08 Completed Vaccine 00:00:00 [place] COVID-19 2021-09-08 Completed Vaccine 00:00:00 Les COVID-19 2021-09-08 Completed Vaccine 00:00:00 COVID-19 Claribel 18 & 2020-12-02 Completed [facility] Vaccination 00:00:00 Clar[place] COVID-19 2020-12-01 Completed Vaccine 00:00:00 Claribel COVID-19 2020-12-01 Completed Vaccine 00:00:00 Claribel COVID-19 2020-12-01 Completed Vaccine 00:00:00 Claribel COVID-19 2020-12-01 Completed Vaccine 00:00:00 Claribel COVID-19 2020-12-01 Completed Vaccine 00:00:00 [place] COVID-19 2020-12-01 Completed Vaccine 00:00:00 Tdap 2011-07-07 Completed [facility] 00:00:00 Vital Signs Vital Name Observation Time Observation Value Comments Source Systolic blood 2022-06-22 15:29:00 156 mm[Hg] [facility] Diastolic blood 2022-06-22 15:29:00 75 mm[Hg] [facility] Heart rate 2022-06-22 15:29:00 98 /min [facility] temperature 2022-06-22 15:29:00 35.61 Patti [facility] height 2022-06-22 15:29:00 152.4 cm [facility] weight 2022-06-22 15:29:00 57[facility]153 [facility] BMI 2022-06-22 15:29:00 24.61 kg[facility]m2 [facility] HEIGHT 2022-05-05 07:00:00 152.4 cm WEIGHT 2022-05-05 07:00:00 53.524 kg HEIGHT 2022-05-05 07:00:00 152.4 cm WEIGHT 2022-05-05 07:00:00 53.524 kg HEIGHT 2022-05-05 07:00:00 152.4 cm WEIGHT 2022-05-05 07:00:00 53.524 kg HEIGHT 2022-01-10 00:00:00 152.4 cm WEIGHT 2022-01-10 00:00:00 53.842 kg HEIGHT 2022-01-10 00:00:00 152.4 cm WEIGHT 2022-01-10 00:00:00 53.842 kg HEIGHT 2022-01-10 00:00:00 152.4 cm WEIGHT 2022-01-10 00:00:00 53.842 kg BP Systolic 2022-09-08 17:12:00 149 mm[Hg] BP Diastolic 2022-09-08 17:12:00 69 mm[Hg] Weight Measured 2022-09-08 17:12:00 133.00 pounds Height Measured 2022-09-08 17:12:00 57.00 inches Body Temperature 2022-09-08 17:12:00 98.60 degrees Heart Rate 2022-09-08 17:12:00 100.00 /min Respiratory Rate 2022-09-08 17:12:00 BP Systolic 2022-09-02 09:37:00 124 mm[Hg] BP Diastolic 2022-09-02 09:37:00 75 mm[Hg] Weight Measured 2022-09-02 09:37:00 130.20 pounds Height Measured 2022-09-02 09:37:00 57.00 inches Body Temperature 2022-09-02 09:37:00 98.30 degrees Heart Rate 2022-09-02 09:37:00 97.00 /min Respiratory Rate 2022-09-02 09:37:00 18.00 /min BP Systolic 2022-08-19 10:05:00 158 mm[Hg] BP Diastolic 2022-08-19 10:05:00 72 mm[Hg] Weight Measured 2022-08-19 10:05:00 131.20 pounds Height Measured 2022-08-19 10:05:00 57.00 inches Body Temperature 2022-08-19 10:05:00 98.20 degrees Heart Rate 2022-08-19 10:05:00 91.00 /min Respiratory Rate 2022-08-19 10:05:00 18.00 /min BP Systolic 2022-08-17 15:15:00 167 mm[Hg] BP Diastolic 2022-08-17 15:15:00 68 mm[Hg] Weight Measured 2022-08-17 15:15:00 132.60 pounds Height Measured 2022-08-17 15:15:00 57.00 inches Body Temperature 2022-08-17 15:15:00 98.30 degrees Heart Rate 2022-08-17 15:15:00 96.00 /min Respiratory Rate 2022-08-17 15:15:00 19.00 /min BP Systolic 2022-06-29 18:05:00 179 mm[Hg] BP Diastolic 2022-06-29 18:05:00 79 mm[Hg] Weight Measured 2022-06-29 18:05:00 127.40 pounds Height Measured 2022-06-29 18:05:00 57.00 inches Body Temperature 2022-06-29 18:05:00 98.80 degrees Heart Rate 2022-06-29 18:05:00 94.00 /min Respiratory Rate 2022-06-29 18:05:00 17.00 /min BP Systolic 2022-06-29 17:41:00 179 mm[Hg] BP Diastolic 2022-06-29 17:41:00 79 mm[Hg] Weight Measured 2022-06-29 17:41:00 127.40 pounds Height Measured 2022-06-29 17:41:00 57.00 inches Body Temperature 2022-06-29 17:41:00 98.80 degrees Heart Rate 2022-06-29 17:41:00 94.00 /min Respiratory Rate 2022-06-29 17:41:00 17.00 /min BP Systolic 2022-05-19 10:57:00 138 mm[Hg] BP Diastolic 2022-05-19 10:57:00 81 mm[Hg] Weight Measured 2022-05-19 10:57:00 126.60 pounds Height Measured 2022-05-19 10:57:00 57.00 inches Body Temperature 2022-05-19 10:57:00 97.80 degrees Heart Rate 2022-05-19 10:57:00 87.00 /min Respiratory Rate 2022-05-19 10:57:00 Systolic blood 2022-05-06 13:00:00 134 mm[Hg] [facility] Diastolic blood 2022-05-06 13:00:00 67 mm[Hg] [facility] Heart rate 2022-05-06 13:00:00 95 /min [facility] Body temperature 2022-05-06 13:00:00 36.78 Patti [facility] Respiratory rate 2022-05-06 13:00:00 18 /min [facility] Oxygen saturation in 2022-05-06 13:00:00 95 /min [facility] Arterial blood by Medical Ce nter Pulse oximetry Body height 2022-05-05 07:00:00 152.4 cm [facility] Body weight 2022-05-05 07:00:00 53.524 kg [facility] BMI 2022-05-05 07:00:00 23.05 kg/m2 [facility] BP Systolic 2022-04-28 14:18:00 195 mm[Hg] BP [...] Respiratory Rate 2019-06-05 10:38:00 16.00 /min Procedures Procedure Date / Time Performing Clinician Source Performed POCT-GLUCOSE METER 2022-05-06 12:38:[address] [facility] POCT-GLUCOSE METER 2022-05-06 07:55:[address] [facility] HEMOGLOBIN A1C 2022-05-06 03:57:00 Ummlyndsay Feleci[address]alcomchantal [facility] BASIC METABOLIC PANEL 2022-05-06 03:57:00 Juan Carlos Feleciamalcomchantal HOWE S t [facility] POCT-GLUCOSE METER 2022-05-05 21:54:[address] [facility] MR LUMBAR SPINE WITH & 2022-05-05 21:11:[address] [facility] IV [facility]AST [facility] er MR THORACIC SPINE WITH & 2022-05-05 21:11:[address] [facility] WITHOUT IV CONTRAST [facility] er POCT-GLUCOSE METER 2022-05-05 18:03:00 JaydencarterHemant castellanoschantal [facility] POCT-GLUCOSE METER 2022-05-05 17:05:00 JaydenpjHemantchantal [facility] POCT-GLUCOSE METER 2022-05-05 14:57:00 Jahaira Rangel [facility] XR LUMBAR SPINE COMP WITH 2022-05-05 12:55:00 Alexei Grover [facility] FLEX & EXT [facility] POCT-GLUCOSE METER 2022-05-05 12:22:00 Felecia Rangelmalcomchantal [facility] SARS-COV2/RT-PCR ([facility] & 2022-05-05 10:27:[address] [facility] POCT-GLUCOSE METER 2022-05-05 09:29:[address] [facility] BASIC METABOLIC PANEL 2022-05-05 08:15:[address] [facility] POCT-GLUCOSE METER 2022-05-05 07:33:00 Jahaira Rangel [facility] CBC W/PLT COUNT & AUTO 2022-05-05 05:51:00 Alexei Grover CH I [facility] CBC W/PLT COUNT & AUTO 2022-05-05 05:51:00 Lenore Alexei I [facility] PROTHROMBIN TIME/INR 2022-05-05 05:51:00 Alexei Grover [facility] POCT-GLUCOSE METER 2022-05-05 01:05:00 Candi Alaniz [facility] POCT-GLUCOSE METER 2022-01-16 17:26:00 GarciaAndrew cox [place] [facility] POCT-GLUCOSE METER 2022-01-16 11:27:00 Garcia, Andrew [place] [facility] POCT-GLUCOSE METER 2022-01-16 06:32:00 Ray-Dromanay, [facility] POCT-GLUCOSE METER 2022-01-15 19:38:00 Ray-Dromanay, [facility] POCT-GLUCOSE METER 2022-01-15 16:37:00 Ray-Droddy, [facility] POCT-GLUCOSE METER 2022-01-15 12:21:00 Ray-Droddy, [facility] POCT-GLUCOSE METER 2022-01-15 06:24:00 Ray-Droddy, [facility] POCT-GLUCOSE METER 2022-01-14 20:13:00 Ray-Dromanay, [facility] POCT-GLUCOSE METER 2022-01-14 17:34:00 Ray-Droddy, Poppy [facility] POCT-GLUCOSE METER 2022-01-14 12:03:00 Ray-Droddy, [facility] POCT-GLUCOSE METER 2022-01-14 07:06:00 Ray-Droddy, [facility] POCT-GLUCOSE METER 2022-01-13 19:43:00 Ray-Droddy, [facility] POCT-GLUCOSE METER 2022-01-13 15:37:00 Ray-Droddy, [facility] POCT-GLUCOSE METER 2022-01-13 11:31:00 Ray-Droddy [facility] POCT-GLUCOSE METER 2022-01-13 05:39:00 Ray-Droddy, [facility] CBC W/PLT COUNT & AUTO 2022-01-13 04:25:00 Valarie Soriano I [facility] BASIC METABOLIC PANEL 2022-01-13 04:25:00 Christie, [facility] CBC W/PLT COUNT & AUTO 2022-01-13 04:25:00 Valarie Soriano I [facility] MAGNESIUM 2022-01-13 04:25:[address] [facility] PHOSPHORUS 2022-01-13 04:[facility] 2022-01-12 20:48:00 Ray-Droddy, [facility] POCT-GLUCOSE METER 2022-01-12 16:17:00 Ray-Droddy, [facility] POCT-GLUCOSE METER 2022-01-12 11:11:00 Ray-Droddy, [facility] POCT-GLUCOSE METER 2022-01-12 06:02:00 Ray-Droddy [facility] CBC W/PLT COUNT & AUTO 2022-01-12 03:45:00 [place] I [facility] BASIC METABOLIC PANEL 2022-01-12 [facility] AUTO 2022-01-12 03:45[facility]00 [facility] MAGNESIUM 2022-01-12 03:45:00 [place], [facility] PHOSPHORUS 2022-01-12 03:45:00 [facility] PO[facility]SE [facility] 2022-01-11 21:39:00 Ray-Dromanaperez Poppy [facility] POCT-GLUCOSE METER 2022-01-11 17:25:00 Poppy Espinoza [facility] MR LUMBAR SPINE WITH & 2022-01-11 15:55:[address] [facility] WITHOUT IV [facility]AST [facility] er XR KNEE 1 OR 2 VIEWS LEFT 2022-01-11 11:53:00 Scooter Anita n [facility] XR HIP 2 VIEWS LEFT 2022-01-11 11:53:00 Scooter [place] [facility] POCT-GLUCOSE METER 2022-01-11 11:19:00 French Poppy [facility] POCT-GLUCOSE METER 2022-01-11 06:03:00 Scooter [place] [facility] CBC W/PLT COUNT & AUTO 2022-01-11 03:41:00 Christie [facility] BASIC METABOLIC PANEL 2022-01-11 03:41:00 Christie [facility] CBC W/PLT COUNT & AUTO 2022-01-11 03:41:00 Christie [facility] MAGNESIUM 2022-01-11 03:41:00 [facility] 2022-01-11 03:41[facility]00 [facility] PO[facility]UCOSE METER 2022-01-11 01:38:00 Scooter [place] [facility] POCT-GLUCOSE METER 2022-01-11 00:25:00 Scooter Franklin [facility] POCT-GLUCOSE METER 2022-01-10 21:41:00 Scooter [place] [facility] POCT-GLUCOSE METER 2022-01-10 20:25:00 [facility] POCT-GLUCOSE METER 2022-01-10 17:46:00 Jr [facility] BASIC METABOLIC PANEL 2022-01-10 17:35:00 [facility] 2022-01-10 16:25:00 Jr [facility] MAGNESIUM 2022-01-10 16:19:00 [facility] 2022-01-10 16:19[facility] CALCIUM, IONIZED 2022-01-10 16:19:00 Nisa Magallon [facility] POCT-GLUCOSE METER 2022-01-10 15:16:00 Jr, [facility] POCT-GLUCOSE METER 2022-01-10 13:47:00 Jr, [facility] POCT-GLUCOSE METER 2022-01-10 12:43:00 Jr, [facility] BASIC METABOLIC PANEL 2022-01-10 11:35:00 [facility] 2022-01-10 11:35:00 [facility] 2022-01-10 11:35:00 [facility] PO[facility]UCOSE MET[facility] 2022-01-10 10:31:00 Jr, [facility] POCT-GLUCOSE METER 2022-01-10 09:16:00 Jr, [facility] POCT-GLUCOSE METER 2022-01-10 07:36:00 Jr, [facility] POCT-GLUCOSE METER 2022-01-10 06:04:00 Jr, [facility] PROCALCITONIN 2022-01-10 05:59:00 Kuhn, [facility] ETHANOL 2022-01-10 05:59:00 Kuhn, [facility] BASIC METABOLIC PANEL 2022-01-10 05:59:00 Christie [facility] MAGNESIUM 2022-01-10 05:59:[address] [facility] PHOSPHORUS 2022-01-10 05:59:00 [facility] POCT-GLUCOSE METER 2022-01-10 05:07:00 Jr, [facility] URINE CULTURE 2022-01-10 04:33[facility]FLEX 2022-01-10 [facility] RAPID DRUG SCREEN, URINE 2022-01-10 04:33:00 Hattie [facility] POCT-GLUCOSE METER 2022-01-10 04:06:00 Jr [facility] POCT-GLUCOSE METER 2022-01-10 03:06:00 Jr [facility] POCT-GLUCOSE METER 2022-01-10 01:57:00 Jr [facility] CBC W/PLT COUNT & AUTO 2022-01-10 01:19:[address] [facility] BLOOD CULTURE 2022-01-10 01:19:[address] [facility] CBC W/PLT COUNT & AUTO 2022-01-10 01:19:[address] [facility] DIFFERENTIAL [facility] COMPREHENSIVE METABOLIC 2022-01-10 01:19:[address] [facility] PANEL [facility] MAGNESIUM 2022-01-10 01:19:[address] [facility] PHOSPHORUS 2022-01-10 01:19[facility] CALCI[facility]ED 2022-01-10 [facility]-HYDROXY 2022-01-10 01:19:00 [facility] LIPASE 2022-01-10 01:19:00 [facility] 2022-01-10 01:19:00 [facility] TRIGLYCERIDES 2022-01-10 01:19:00 [facility] TROPONIN I 2022-01-10 01:19:00 [facility] PT/APTT 2022-01-10 01:19:00 [facility] LACTIC ACID, VENOUS 2022-01-10 01:19:00 [facility] KETONE, BLOOD 2022-01-10 01:19:00 [facility] BASIC METABOLIC PANEL 2022-01-10 01:19:00 [facility] HEMOGLOBIN A1C 2022-01-10 01:19:00 [facility] LIPID PANEL 2022-01-10 01:19:00 [facility] US ABDOMEN LIMITED 2022-01-10 01:15:00 [facility] POCT-GLUCOSE METER 2022-01-10 00:17:00 [facility] Plan of Care Planned Activity Planned Date Details Comments Source Future Scheduled 2025-01-10 Lipid panel (procedure) [facility] 00:00:00 [code = 38407013] Medical Ce [facility]ter Future Scheduled 2025-01-10 Lipid panel (procedure) [facility] 00:00:00 [code = 36401869] Medical Ce nter Future Scheduled 2025-01-10 Lipid panel (procedure) [facility] 00:00:00 [code = 60432307] Medical Ce [facility]ter Future Scheduled 2025-01-10 Lipid panel (procedure) [facility] 00:00:00 [code = [id number]] Medical Ce nter Future Scheduled 2025-01-10 Lipid panel (procedure) [facility] 00:00:00 [code = [id number]] Medical Ce nter Future Scheduled 2025-01-10 Lipid panel (procedure) [facility] 00:00:00 [code = [id number]] Medical Ce nter Future Scheduled 2025-01-10 Lipid panel (procedure) [facility] 00:00:00 [code = [id number]] Medical Ce nter Future Scheduled 2025-01-10 Lipid panel (procedure) [facility] 00:00:00 [code = [id number]] Medical Ce nter Future Scheduled 2025-01-10 Lipid panel (procedure) [facility] 00:00:00 [code = [id number]] Medical Ce nter Future Scheduled 2025-01-10 Lipid panel (procedure) [facility] 00:00:00 [code = [id number]] Medical Ce nter Future Scheduled 2025-01-10 Lipid panel (procedure) [facility] 00:00:00 [code = 47035911] Medical Ce nter Future Scheduled 2025-01-10 Lipid panel (procedure) [facility] 00:00:00 [code = 43312099] Medical Ce nter Future Scheduled 2025-01-10 Lipid panel (procedure) [facility] 00:00:00 [code = 37328253] Medical Ce nter Future Scheduled 2025-01-10 Lipid panel (procedure) [facility] 00:00:00 [code = [id number]] Medical Ce nter Future Scheduled 2025-01-10 Lipid panel (procedure) [facility] 00:00:00 [code = [id number]] Medical Ce nter Future Scheduled 2025-01-10 Lipid panel (procedure) [facility] 00:00:00 [code = [id number]] Medical Ce nter Future Scheduled 2023-05-[address] [facility] 00:00:00 [facility] (12+) [code = Tobacco Cessation Counseling and Screening (12+)] Future Scheduled 2023-05-[address] [facility] 00:00:00 [facility] (12+) [code = Tobacco Cessation Counseling and Screening (12+)] Future Scheduled 2023-05-[address] [facility] 00:00:00 [facility] (12+) [code = Tobacco Cessation Counseling and Screening (12+)] Future Scheduled 2023-05-[address] [facility] 00:00:00 [facility] Scre[facility] (12+) [code = Tobacco Cessation Counseling and Screening (12+)] Future Scheduled 2023-05-[address] [facility] 00:00:00 [facility] Screening (12+) [code = Tobacco Cessation Counseling and Screening (12+)] Future Scheduled 2023-05-[address] [facility] 00:00:00 [facility] Screening (12+) [code = Tobacco Cessation Counseling and Screening (12+)] Future Scheduled 2023-05-[address] [facility] 00:00:00 [facility] Screening (12+) [code = Tobacco Cessation Counseling and Screening (12+)] Future Scheduled 2023-05-[address] [facility] 00:00:00 [facility] Screening (12+) [code = Tobacco Cessation Counseling and Screening (12+)] Future Scheduled 2022-09-[address] [facility] 00:00:00 (12+) [code = Medical Center DEPRESSION SCREENING (12+)] Future Scheduled 2022-09-[address] [facility] 00:00:00 (12+) [code = Medical Center DEPRESSION SCREENING (12+)] Future Scheduled 2022-09-[address] [facility] 00:00:00 (12+) [code = Medical Center DEPRESSION SCREENING (12+)] Future Scheduled 2022-05-13 INFLUENZA VACCINE (#1) [facility]00 [code = INFLUENZA Medical Ce nter VACCINE (#1)] Future Scheduled 2022-05-13 INFLUENZA VACCINE (#1) [facility] 00:00:00 [code = INFLUENZA Medical Ce nter VACCINE (#1)] Future Scheduled 2022-05-13 INFLUENZA VACCINE (#1) [facility] 00:00:00 [code = INFLUENZA Medical Ce nter VACCINE (#1)] Future Scheduled 2022-05-13 INFLUENZA VACCINE (#1) [facility] 00:00:00 [code = INFLUENZA Medical Ce nter VACCINE (#1)] Future Scheduled 2022-05-13 INFLUENZA VACCINE (#1) [facility] 00:00:00 [code = INFLUENZA Medical Ce nter VACCINE (#1)] Future Scheduled 2022-05-13 INFLUENZA VACCINE (#1) [facility] 00:00:00 [code = INFLUENZA Medical Ce nter VACCINE (#1)] Future Scheduled 2022-05-13 INFLUENZA VACCINE (#1) [facility] 00:00:00 [code = INFLUENZA Medical Ce nter VACCINE (#1)] Future Scheduled 2022-05-13 INFLUENZA VACCINE (#1) [facility] 00:00:00 [code = INFLUENZA Medical Ce nter VACCINE (#1)] Future Scheduled 2022-05-13 INFLUENZA VACCINE (#1) [facility] 00:00:00 [code = INFLUENZA Medical Ce nter VACCINE (#1)] Future Scheduled 2022-05-13 INFLUENZA VACCINE (#1) [facility] 00:00:00 [code = INFLUENZA Medical Ce nter VACCINE (#1)] Future Scheduled 2022-05-13 INFLUENZA VACCINE (#1) [facility] 00:00:00 [code = INFLUENZA Medical Ce nter VACCINE (#1)] Future Scheduled 2022-05-13 INFLUENZA VACCINE (#1) [facility] 00:00:00 [code = INFLUENZA Medical Ce nter VACCINE (#1)] Future Scheduled 2022-05-13 INFLUENZA VACCINE (#1) [facility] 00:00:00 [code = INFLUENZA Medical Ce nter VACCINE (#1)] Future Scheduled 2022-05-13 INFLUENZA VACCINE (#1) [facility] 00:00:00 [code = INFLUENZA Medical Ce nter VACCINE (#1)] Future Scheduled 2022-05-13 INFLUENZA VACCINE (#1) [facility] 00:00:00 [code = INFLUENZA Medical Ce nter VACCINE (#1)] Future Scheduled 2022-05-13 INFLUENZA VACCINE (#1) [facility] 00:00:00 [code = INFLUENZA Medical Ce nter VACCINE (#1)] Future Scheduled 2022-01-07 COVID-19 VACCINE (3 - [facility]00 [facility]oster for [facility] series) [code = COVID-19 VACCINE (3 - [facility]oster for [facility] series)] Future Scheduled 2022-01-07 COVID-19 VACCINE (3 - [facility]00 [facility]oster for [facility] series) [code = COVID-19 VACCINE (3 - [facility] for [facility] series)] Future Scheduled 2022-01-07 COVID-19 VACCINE (3 - [facility] 00:00:00 Booster for [facility] series) [code = COVID-19 VACCINE (3 - [facility]oster for [facility] series)] Future Scheduled 2022-01-07 COVID-19 VACCINE (3 - [facility] 00:00:00 Booster for [facility] series) [code = COVID-19 VACCINE (3 - [facility] for [facility] series)] Future Scheduled 2022-01-07 COVID-19 VACCINE (3 - [facility] 00:00:00 Booster for [facility] series) [code = COVID-19 VACCINE (3 - [facility]oster for [facility] series)] Future Scheduled 2022-01-07 COVID-19 VACCINE (3 - [facility] 00:00:00 Booster for [facility] series) [code = COVID-19 VACCINE (3 - [facility]oster for [facility] series)] Future Scheduled 2022-01-07 COVID-19 VACCINE (3 - [facility] 00:00:00 Booster for [facility] series) [code = COVID-19 VACCINE (3 - Booster for [facility] series)] Future Scheduled 2022-01-07 COVID-19 VACCINE (3 - [facility] 00:00:00 Booster for [facility] series) [code = COVID-19 VACCINE (3 - Booster for [facility] series)] Future Scheduled 2022-01-07 COVID-19 VACCINE (3 - [facility] 00:00:00 Booster for [facility] series) [code = COVID-19 VACCINE (3 - Booster for [facility] series)] Future Scheduled 2022-01-07 COVID-19 VACCINE (3 - [facility] 00:00:00 Booster for [facility] series) [code = COVID-19 VACCINE (3 - Booster for [facility] series)] Future Scheduled 2022-01-07 COVID-19 VACCINE (3 - [facility] 00:00:00 Booster for [facility] series) [code = COVID-19 VACCINE (3 - Booster for [facility] series)] Future Scheduled 2022-01-07 COVID-19 VACCINE (3 - [facility] 00:00:00 Booster for [facility] series) [code = COVID-19 VACCINE (3 - Booster for [facility] series)] Future Scheduled 2022-01-07 COVID-19 VACCINE (3 - [facility] 00:00:00 Booster for [facility] series) [code = COVID-19 VACCINE (3 - Booster for [facility] series)] Future Scheduled 2022-01-07 COVID-19 VACCINE (3 - [facility] 00:00:00 Booster for [facility] series) [code = COVID-19 VACCINE (3 - Booster for [facility] series)] Future Scheduled 2022-01-07 COVID-19 VACCINE (3 - [facility] 00:00:00 Booster for [facility] series) [code = COVID-19 VACCINE (3 - Booster for [facility] series)] Future Scheduled 2022-01-07 COVID-19 VACCINE (3 - [facility] 00:00:00 Booster for [facility] series) [code = COVID-19 VACCINE (3 - Booster for [facility] series)] Future Scheduled 2021-07-07 DTAP/TDAP/TD VACCINES [facility] 00:00:00 (2 - Td or Tdap) [code [facility] = DTAP/TDAP/TD VACCINES (2 - Td or Tdap)] Future Scheduled 2021-07-07 DTAP/TDAP/TD VACCINES [facility] 00:00:00 (2 - Td or Tdap) [code [facility] = DTAP/TDAP/TD VACCINES (2 - Td or Tdap)] Future Scheduled 2021-07-07 DTAP/TDAP/TD VACCINES [facility] 00:00:00 (2 - Td or Tdap) [code [facility] = DTAP/TDAP/TD VACCINES (2 - Td or Tdap)] Future Scheduled 2021-07-07 DTAP/TDAP/TD VACCINES [facility] 00:00:00 (2 - Td or Tdap) [code [facility] = DTAP/TDAP/TD VACCINES (2 - Td or Tdap)] Future Scheduled 2021-07-07 DTAP/TDAP/TD VACCINES [facility] 00:[facility]:00 (2 - Td or Tdap) [code [facility] = DTAP/TDAP/TD VACCINES (2 - Td or Tdap)] Future Scheduled 2021-07-07 DTAP/TDAP/TD [facility]ACCINES [facility] 00:00:00 (2 - Td or Tdap) [code [facility] = DTAP/TDAP/TD VACCINES (2 - Td or Tdap)] Future Scheduled 2021-07-07 DTAP/TDAP/TD [facility]ACCINES [facility] 00:00:00 (2 - Td or Tdap) [code [facility] = DTAP/TDAP/TD VACCINES (2 - Td or Tdap)] Future Scheduled 2021-07-07 DTAP/TDAP/TD VACCINES [facility] 00:00:00 (2 - Td or Tdap) [code [facility] = DTAP/TDAP/TD VACCINES (2 - Td or Tdap)] Future Scheduled 2021-07-07 DTAP/TDAP/TD VACCINES [facility] 00:00:00 (2 - Td or Tdap) [code [facility] = DTAP/TDAP/TD VACCINES (2 - Td or Tdap)] Future Scheduled 2021-07-07 DTAP/TDAP/TD [facility]ACCINES [facility] 00:00:00 (2 - Td or Tdap) [code [facility] = DTAP/TDAP/TD VACCINES (2 - Td or Tdap)] Future Scheduled 2021-07-07 DTAP/TDAP/TD [facility]ACCINES [facility] 00:00:00 (2 - Td or Tdap) [code [facility] = DTAP/TDAP/TD VACCINES (2 - Td or Tdap)] Future Scheduled 2021-07-07 DTAP/TDAP/TD [facility]ACCINES [facility] 00:00:00 (2 - Td or Tdap) [code [facility] = DTAP/TDAP/TD VACCINES (2 - Td or Tdap)] Future Scheduled 2021-07-07 [facility] (2 - Td or Tdap) [code [facility] = DTAP/TDAP/TD VACCINES (2 - Td or Tdap)] Future Scheduled 2021-07-07 [facility]TD [facility] (2 - Td or Tdap) [code [facility] = DTAP/TDAP/TD VACCINES (2 - Td or Tdap)] Future Scheduled 2021-07-07 [facility]TD [facility] (2 - Td or Tdap) [code [facility] = DTAP/TDAP/TD VACCINES (2 - Td or Tdap)] Future Scheduled 2021-07-07 [facility]TD [facility] (2 - Td or Tdap) [code [facility] = DTAP/TDAP/TD VACCINES (2 - Td or Tdap)] Future Scheduled 2012 SHINGLES VACCINES ([address] [facility] 00:00:00 2) [code = [facility] (1 of 2)] Future Scheduled 2012 SHINGLES VACCINES ([address] [facility] 00:00:00 2) [code = [facility] (1 of 2)] Future Scheduled 2012 SHINGLES VACCINES ([address] [facility] 00:00:00 2) [code = [facility] (1 of 2)] Future Scheduled 2012 SHINGLES VACCINES ([address] [facility] 00:00:00 2) [code = [facility]ES (1 of 2)] Future Scheduled 2012 SHINGLES VACCINES ([address] [facility] 00:00:00 2) [code = [facility]ES (1 of 2)] Future Scheduled 2012 SHINGLES VACCINES ([address] [facility] 00:00:00 2) [code = [facility]ACC[facility]ES (1 of 2)] Future Scheduled 2012 SHINGLES VACCINES ([address] [facility] 00:00:00 2) [code = [facility]ES (1 of 2)] Future Scheduled 2012 SHINGLES VACCINES ([address] [facility] 00:00:00 2) [code = [facility]ES (1 of 2)] Future Scheduled 2012 SHINGLES VACCINES ([address] [facility] 00:00:00 2) [code = [facility]ACC[facility]ES (1 of 2)] Future Scheduled 2012 SHINGLES VACCINES ([address] [facility] 00:00:00 2) [code = [facility]ACC[facility]ES (1 of 2)] Future Scheduled 2012 SHINGLES VACCINES ([address] [facility] 00:00:00 2) [code = [facility] VACC[facility]ES (1 of 2)] Future Scheduled 2012 SHINGLES VACCINES ([address] [facility] 00:00:00 2) [code = [facility] VACC[facility]ES (1 of 2)] Future Scheduled 2012 SHINGLES VACCINES ([address] [facility] 00:00:00 2) [code = [facility]ACC[facility]ES (1 of 2)] Future Scheduled 2012 SHINGLES VACCINES ([address] [facility] 00:00:00 2) [code = [facility] VACC[facility]ES (1 of 2)] Future Scheduled 2012 SHINGLES VACCINES ([address] [facility] 00:00:00 2) [code = [facility] VACC[facility]ES (1 of 2)] Future Scheduled 2012 SHINGLES VACCINES ([address] [facility] 00:00:00 2) [code = [facility] VACC[facility]ES (1 of 2)] Future Scheduled 1983 Screening for malignant [facility] 00:00:00 neoplasm of cervix [facility] enter (procedure) [code = [id number]] Future Scheduled 1983 Screening for malignant [facility] 00:00:00 neoplasm of cervix [facility] enter (procedure) [code = 441641042] Future Scheduled 1983 Screening for malignant [facility] 00:00:00 neoplasm of cervix [facility] (procedure) [code = 801430877] Future Scheduled 1983 Screening for malignant [facility] 00:00:00 neoplasm of cervix [facility] enter (procedure) [code = 782851037] Future Scheduled 1983 Screening for malignant [facility] 00:00:00 neoplasm of cervix [facility] enter (procedure) [code = 737684593] Future Scheduled 1983 Screening for malignant [facility] 00:00:00 neoplasm of cervix [facility] enter (procedure) [code = 946625184] Future Scheduled 1983 Screening for malignant [facility] 00:00:00 neoplasm of cervix [facility] enter (procedure) [code = 109730662] Future Scheduled 1983 Screening for malignant [facility] 00:00:00 neoplasm of cervix [facility] enter (procedure) [code = 825705104] Future Scheduled 1983 Screening for malignant [facility] 00:00:00 neoplasm of cervix [facility] enter (procedure) [code = 087384843] Future Scheduled 1983 Screening for malignant [facility] 00:00:00 neoplasm of cervix [facility] enter (procedure) [code = 755774385] Future Scheduled 1983 Screening for malignant [facility] 00:00:00 neoplasm of cervix [facility] enter (procedure) [code = 403163600] Future Scheduled 1983 Screening for malignant [facility] 00:00:00 neoplasm of cervix [facility] enter (procedure) [code = 654151498] Future Scheduled 1983 Screening for malignant [facility] 00:00:00 neoplasm of cervix [facility] enter (procedure) [code = 891792968] Future Scheduled 1983 Screening for malignant [facility] 00:00:00 neoplasm of cervix [facility] enter (procedure) [code = 074766914] Future Scheduled 1983 Screening for malignant [facility] 00:00:00 neoplasm of cervix [facility] enter (procedure) [code = 270618840] Future Scheduled 1983 Screening for malignant [facility] 00:00:00 neoplasm of cervix [facility] enter (procedure) [code = 778841561] Future Scheduled 1980 [facility]ITIS C [facility]CRE[facility] [code = [facility] SCREEN[facility]] Future Scheduled 1980 [facility]IS C [facility] [code = HEPATITIS C [facility] SCREENING] Future Scheduled 1980 [facility]IS C [facility] [code = HEPATITIS C [facility] SCREENING] Future Scheduled 1980 [facility]IS C [facility] [code = HEPATITIS C [facility] SCREENING] Future Scheduled 1980 [facility]IS C [facility] [code = HEPATITIS C [facility] SCREENING] Future Scheduled 1980 [facility]IS C [facility] [code = HEPATITIS C [facility] SCREENING] Future Scheduled 1980 [facility]IS C [facility] [code = HEPATITIS C [facility] SCREENING] Future Scheduled 1980 [facility]IS C [facility] [code = HEPATITIS C [facility] SCREENING] Future Scheduled 1980 [facility]IS C [facility] [code = HEPATITIS C [facility] SCREENING] Future Scheduled 1980 [facility]IS C [facility] [code = HEPATITIS C [facility] SCREENING] Future Scheduled 1980 [facility]IS C [facility] [code = HEPATITIS C [facility] SCREENING] Future Scheduled 1980 [facility]IS C [facility] [code = HEPATITIS C [facility] SCREENING] Future Scheduled 1980 [facility]IS C [facility] [code = HEPATITIS C [facility] SCREENING] Future Scheduled 1980 [facility]IS C [facility] [code = HEPATITIS C [facility] SCREENING] Future Scheduled 1980 [facility]IS C [facility] [code = HEPATITIS C [facility] SCREENING] Future Scheduled 1980 [facility]IS C [facility] [code = HEPATITIS C [facility] SCREENING] Future Scheduled 1962 Screening for malignant [facility] 00:00:00 neoplasm of breast Medical [facility] enter (procedure) [code = 688718361] Future Scheduled 1962 CT Colonography (combo) [facility] 00:[facility] [code = CT Colonography [facility] (combo)] Future Scheduled 1962 Screening for malignant [facility] 00:00:00 neoplasm of colon [facility] (procedure) [code = 821790686] Future Scheduled 1962 Screening for malignant [facility] 00:00:00 neoplasm of colon [facility] (procedure) [code = 158414292] Future Scheduled 1962 Screening for malignant [facility] 00:00:00 neoplasm of colon [facility] (procedure) [code = 035151879] Future Scheduled 1962 Screening for malignant [facility] 00:00:00 neoplasm of colon [facility]ter (procedure) [code = 235124565] Future Scheduled 1962 Sigmoidoscopy [code = [facility] S[facility]oscopy] [facility] Future Scheduled 1962 Screening for malignant [facility] 00:00:00 neoplasm of breast Medical [facility] enter (procedure) [code = 745563651] Future Scheduled 1962 CT Colonography (combo) [facility] 00[facility]00:00 [code = CT Colonography [facility] (combo)] Future Scheduled 1962 Screening for malignant [facility] 00:00:00 neoplasm of colon [facility] (procedure) [code = 592496714] Future Scheduled 1962 Screening for malignant [facility] 00:00:00 neoplasm of colon [facility]ter (procedure) [code = 087094263] Future Scheduled 1962 Screening for malignant [facility] 00:00:00 neoplasm of colon [facility] (procedure) [code = 566042956] Future Scheduled 1962 Screening for malignant [facility] 00:00:00 neoplasm of colon [facility] (procedure) [code = 955160674] Future Scheduled 1962 Sigmoidoscopy [facility] S[facility]oscopy] [facility] Future Scheduled 1962 Screening for malignant [facility] 00:00:00 neoplasm of breast Medical [facility] enter (procedure) [code = 523391558] Future Scheduled 1962 CT Colonography (combo) [facility] 00:00:00 [code = CT Colonography [facility] (combo)] Future Scheduled 1962 Screening for malignant [facility] 00:00:00 neoplasm of colon [facility] (procedure) [code = 060182747] Future Scheduled 1962 Screening for malignant [facility] 00:00:00 neoplasm of colon [facility] (procedure) [code = 636193848] Future Scheduled 1962 Screening for malignant [facility] 00:00:00 neoplasm of colon [facility] (procedure) [code = 100287563] Future Scheduled 1962 Screening for malignant [facility] 00:00:00 neoplasm of colon Medical Ce [facility] (procedure) [code = 905578864] Future Scheduled 1962 Sigmoidoscopy [facility]code [facility] Screening for malignant [facility] 00:00:00 neoplasm of breast Medical C enter (procedure) [code = 169049306] Future Scheduled 1962 CT Colonography (combo) [facility] 00:00:00 [code = CT Colonography [facility] (combo)] Future Scheduled 1962 Screening for malignant [facility] 00:00:00 neoplasm of colon Medical [facility]ter (procedure) [code = 447193938] Future Scheduled 1962 Screening for malignant [facility] 00:00:00 neoplasm of colon Medical Ce [facility]ter (procedure) [code = 093304796] Future Scheduled 1962 Screening for malignant [facility] 00:00:00 neoplasm of colon Medical [facility]ter (procedure) [code = 444930587] Future Scheduled 1962 Screening for malignant [facility] 00:00:00 neoplasm of colon Medical [facility] (procedure) [code = 685467458] Future Scheduled 1962 Sigmoidoscopy [facility]code [facility] S[facility]oscopy] [facility] Future Scheduled 1962 Screening for malignant [facility] 00:00:00 neoplasm of breast Medical C enter (procedure) [code = 992825682] Future Scheduled 1962 CT Colonography (combo) [facility] 00:00:00 [code = CT Colonography [facility] (combo)] Future Scheduled 1962 Screening for malignant [facility] 00:00:00 neoplasm of colon Medical [facility] (procedure) [code = 533180783] Future Scheduled 1962 Screening for malignant [facility] 00:00:00 neoplasm of colon Medical [facility] (procedure) [code = 349579221] Future Scheduled 1962 Screening for malignant [facility] 00:00:00 neoplasm of colon Medical [facility]ter (procedure) [code = 607197729] Future Scheduled 1962 Screening for malignant [facility] 00:00:00 neoplasm of colon Medical [facility] (procedure) [code = 802002413] Future Scheduled 1962 Sigmoidoscopy [facility]code [facility] S[facility]oscopy] [facility] Future Scheduled 1962 Screening for malignant [facility] 00:00:00 neoplasm of breast Medical C enter (procedure) [code = 989249686] Future Scheduled 1962 CT Colonography (combo) [facility] 00:00:00 [code = [facility] ([facility])] Future Scheduled 1962 Screening for malignant [facility] 00:00:00 neoplasm of colon [facility] (procedure) [code = 547255823] Future Scheduled 1962 Screening for malignant [facility] 00:00:00 neoplasm of colon [facility] (procedure) [code = 523379831] Future Scheduled 1962 Screening for malignant [facility] 00:00:00 neoplasm of colon Medical [facility] (procedure) [code = 830076603] Future Scheduled 1962 Screening for malignant [facility] 00:00:00 neoplasm of colon Medical [facility] (procedure) [code = 900584178] Future Scheduled 1962 Sigmoidoscopy [facility]] [facility] Future Scheduled 1962 Screening for malignant [facility] 00:00:00 neoplasm of breast Medical C enter (procedure) [code = 963738558] Future Scheduled 1962 CT Colonography (combo) [facility] 00:00:00 [code = [facility] ([facility])] Future Scheduled 1962 Screening for malignant [facility] 00:00:00 neoplasm of colon Medical [facility] (procedure) [code = 646649875] Future Scheduled 1962 Screening for malignant [facility] 00:00:00 neoplasm of colon Medical [facility] (procedure) [code = 022078354] Future Scheduled 1962 Screening for malignant [facility] 00:00:00 neoplasm of colon Medical Ce [facility] (procedure) [code = 912431027] Future Scheduled 1962 Screening for malignant [facility] 00:00:00 neoplasm of colon Medical [facility] (procedure) [code = 390653396] Future Scheduled 1962 Sigmoidoscopy [facility] S[facility]oscopy] [facility] Future Scheduled 1962 Screening for malignant [facility] 00:00:00 neoplasm of breast Medical C enter (procedure) [code = 923167166] Future Scheduled 1962 CT Colonography (combo) [facility] 00:00:00 [code = [facility] ([facility])] Future Scheduled 1962 Screening for malignant [facility] 00:00:00 neoplasm of colon Medical Ce [facility] (procedure) [code = 639520252] Future Scheduled 1962 Screening for malignant [facility] 00:00:00 neoplasm of colon Medical Ce [facility] (procedure) [code = 137373910] Future Scheduled 1962 Screening for malignant [facility] 00:00:00 neoplasm of colon Medical Ce [facility]ter (procedure) [code = 346522043] Future Scheduled 1962 Screening for malignant [facility] 00:00:00 neoplasm of colon Medical Ce [facility]ter (procedure) [code = 150580872] Future Scheduled 1962 Sigmoidoscopy [facility]code [facility]] [facility] Future Scheduled 1962 Screening for malignant [facility] 00:00:00 neoplasm of breast Medical C enter (procedure) [code = 002890611] Future Scheduled 1962 CT Colonography (combo) [facility] 00:00:00 [code = [facility] ([facility])] Future Scheduled 1962 Screening for malignant [facility] 00:00:00 neoplasm of colon Medical [facility] (procedure) [code = 336496552] Future Scheduled 1962 Screening for malignant [facility] 00:00:00 neoplasm of colon Medical [facility] (procedure) [code = 536808521] Future Scheduled [address] Screening for malignant [facility] 00:00:00 neoplasm of colon Medical Ce [facility]ter (procedure) [code = 227022776] Future Scheduled 1962 Screening for malignant [facility] 00:00:00 neoplasm of colon Medical Ce [facility]ter (procedure) [code = 748199902] Future Scheduled 1962 Sigmoidoscopy [facility]code [facility] S[facility]oscopy] [facility] Future Scheduled 1962 Screening for malignant [facility] 00:00:00 neoplasm of breast Medical C enter (procedure) [code = 728800434] Future Scheduled 1962 CT Colonography (combo) [facility] 00:00:00 [code = [facility] ([facility])] Future Scheduled 1962 Screening for malignant [facility] 00:00:00 neoplasm of colon Medical Ce [facility] (procedure) [code = 149809520] Future Scheduled 1962 Screening for malignant [facility] 00:00:00 neoplasm of colon Medical Ce [facility] (procedure) [code = 443349801] Future Scheduled 1962 Screening for malignant [facility] 00:00:00 neoplasm of colon Medical Ce [facility]ter (procedure) [code = 660199309] Future Scheduled 1962 Screening for malignant [facility] 00:00:00 neoplasm of colon Medical Ce [facility]ter (procedure) [code = 896763740] Future Scheduled 1962 Sigmoidoscopy [facility]code [facility] S[facility]] [facility] Future Scheduled 1962 Screening for malignant [facility] 00:00:00 neoplasm of breast Medical C enter (procedure) [code = 870203581] Future Scheduled 1962 CT Colonography (combo) [facility] 00:00:00 [code = [facility] ([facility])] Future Scheduled 1962 Screening for malignant [facility] 00:00:00 neoplasm of colon [facility] Ce [facility] (procedure) [code = 866043589] Future Scheduled 1962 Screening for malignant [facility] 00:00:00 neoplasm of colon Medical Ce [facility]ter (procedure) [code = 506862086] Future Scheduled [address] Screening for malignant [facility] 00:00:00 neoplasm of colon Medical Ce [facility]ter (procedure) [code = 283149314] Future Scheduled 1962 Screening for malignant [facility] 00:00:00 neoplasm of colon Medical Ce [facility]ter (procedure) [code = 011892943] Future Scheduled 1962 Sigmoidoscopy [facility] S[facility]] [facility] Future Scheduled 1962 Screening for malignant [facility] 00:00:00 neoplasm of breast Medical C enter (procedure) [code = 007290649] Future Scheduled 1962 CT Colonography (combo) [facility] 00:00:00 [code = [facility] ([facility])] Future Scheduled 1962 Screening for malignant [facility] 00:00:00 neoplasm of colon Medical Ce [facility] (procedure) [code = 939582181] Future Scheduled 1962 Screening for malignant [facility] 00:00:00 neoplasm of colon Medical Ce [facility]ter (procedure) [code = 369504726] Future Scheduled [address] Screening for malignant [facility] 00:00:00 neoplasm of colon Medical Ce [facility] (procedure) [code = 624751398] Future Scheduled 1962 Screening for malignant [facility] 00:00:00 neoplasm of colon [facility] Ce [facility]ter (procedure) [code = 096876218] Future Scheduled 1962 Sigmoidoscopy [facility]code [facility] S[facility]] [facility] Future Scheduled 1962 Screening for malignant [facility] 00:00:00 neoplasm of breast Medical C enter (procedure) [code = 442509906] Future Scheduled 1962 CT Colonography (combo) [facility] 00:00:00 [code = [facility] ([facility])] Future Scheduled 1962 Screening for malignant [facility] 00:00:00 neoplasm of colon [facility] Ce [facility] (procedure) [code = 195021292] Future Scheduled 1962 Screening for malignant [facility] 00:00:00 neoplasm of colon Medical Ce [facility]ter (procedure) [code = 234028765] Future Scheduled [address] Screening for malignant [facility] 00:00:00 neoplasm of colon Medical Ce [facility]ter (procedure) [code = 969591447] Future Scheduled [address] Screening for malignant [facility] 00:00:00 neoplasm of colon Medical Ce [facility]ter (procedure) [code = 765650611] Future Scheduled 1962 Sigmoidoscopy [facility]] [facility] Future Scheduled 1962 Screening for malignant [facility] 00:00:00 neoplasm of breast Medical C enter (procedure) [code = 956379247] Future Scheduled 1962 CT Colonography (combo) [facility] 00:00:00 [code = [facility] ([facility])] Future Scheduled 1962 Screening for malignant [facility] 00:00:00 neoplasm of colon [facility] Ce [facility]ter (procedure) [code = 624498753] Future Scheduled 1962 Screening for malignant [facility] 00:00:00 neoplasm of colon Medical Ce [facility]ter (procedure) [code = 649024930] Future Scheduled [address] Screening for malignant [facility] 00:00:00 neoplasm of colon Medical Ce [facility]ter (procedure) [code = 151639568] Future Scheduled 1962 Screening for malignant [facility] 00:00:00 neoplasm of colon Medical Ce [facility]ter (procedure) [code = 296769881] Future Scheduled 1962 Sigmoidoscopy [facility]code [facility]] [facility] Future Scheduled 1962 Screening for malignant [facility] 00:00:00 neoplasm of breast Medical C enter (procedure) [code = 862546281] Future Scheduled 1962 CT Colonography (combo) [facility] 00:00:00 [code = CT [facility]ography [facility] (combo)] Future Scheduled 1962 Screening for malignant [facility] 00:00:00 neoplasm of colon Medical Ce [facility]ter (procedure) [code = 911025015] Future Scheduled 1962 Screening for malignant [facility] 00:00:00 neoplasm of colon Medical Ce [facility]ter (procedure) [code = 168631941] Future Scheduled 1962 Screening for malignant [facility] 00:00:00 neoplasm of colon Medical Ce [facility]ter (procedure) [code = 418886493] Future Scheduled 1962 Screening for malignant [facility] 00:00:00 neoplasm of colon Medical Ce nter (procedure) [code = 852205218] Future Scheduled 1962 Sigmoidoscopy [facility]code [facility] S[facility]oscopy] [facility] Future Scheduled 1962 Screening for malignant [facility] 00:00:00 neoplasm of breast Medical C enter (procedure) [code = 679887460] Future Scheduled 1962 CT Colonography (combo) [facility] 00:00:00 [code = CT Colonography [facility] (combo)] Future Scheduled 1962 Screening for malignant [facility] 00:00:00 neoplasm of colon Medical Ce [facility]ter (procedure) [code = 031599441] Future Scheduled 1962 Screening for malignant [facility] 00:00:00 neoplasm of colon Medical Ce [facility]ter (procedure) [code = 436778600] Future Scheduled 1962 Screening for malignant [facility] 00:00:00 neoplasm of colon Medical Ce [facility]ter (procedure) [code = 954577657] Future Scheduled 1962 Screening for malignant [facility] 00:00:00 neoplasm of colon Medical Ce [facility]ter (procedure) [code = 110499649] Future Scheduled 1962 Sigmoidoscopy [facility]] [facility] Elsy johnson Goal Plan of Care Note [code = 57304-2] Goal Plan of Care Note [code = 64281-6] Goal Plan of Care Note [code = 51876-3] Goal Plan of Care Note [code = 21067-7] Goal Plan of Care Note [code = 13494-2] Goal Plan of Care Note [code = 34711-6] Goal Plan of Care Note [code = 65966-8] Goal Plan of Care Note [code = 07292-8] Goal Plan of Care Note [code = 61008-0] Goal Plan of Care Note [code = 47130-5] Goal Plan of Care Note [code = 14475-4] Goal Plan of Care Note [code = 67448-2] Goal Plan of Care Note [code = 35690-9] Goal Plan of Care Note [code = 82060-5] Goal Plan of Care Note [code = 77046-8] Goal Plan of Care Note [code = 37821-7] Goal Plan of Care Note [code = 05479-0] Goal Plan of Care Note [code = 40504-7] Goal Plan of Care Note [code = 11183-0] Goal Plan of Care Note [code = 44773-3] Goal Plan of Care Note [code = 03117-5] Goal Plan of Care Note [code = 73236-4] Goal Plan of Care Note [code = 41420-2] Goal Plan of Care Note [code = 64167-3] Goal Plan of Care Note [code = 24266-8] Goal Plan of Care Note [code = 61045-4] Goal Plan of Care Note [code = 95556-0] Goal Plan of Care Note [code = 57294-0] Goal Plan of Care Note [code = 14428-5] Goal Plan of Care Note [code = 16119-7] Goal Plan of Care Note [code = 61209-7] Goal Plan of Care Note [code = 83445-0] Goal Plan of Care Note [code = 03648-6] Goal Plan of Care Note [code = 58293-2] Goal Plan of Care Note [code = 98217-7] Goal Plan of Care Note [code = 42542-1] Goal Plan of Care Note [code = 84376-6] Goal Plan of Care Note [code = 24015-5] Goal Plan of Care Note [code = 09867-7] Goal Plan of Care Note [code = 48087-5] Goal Plan of Care Note [code = 13648-5] Goal Plan of Care Note [code = 33549-5] Goal Plan of Care Note [code = 32692-4] Goal Plan of Care Note [code = 78314-0] Goal Plan of Care Note [code = 51756-7] Goal Plan of Care Note [code = 73850-4] Goal Plan of Care Note [code = 97407-0] Goal Plan of Care Note [code = 66279-2] Goal Plan of Care Note [code = 42636-4] Goal Plan of Care Note [code = 23149-3] Goal Plan of Care Note [code = 00909-0] Goal Plan of Care Note [code = 26928-3] Goal Plan of Care Note [code = 46319-0] Goal Plan of Care Note [code = 96759-2] Goal Plan of Care Note [code = 97806-3] Goal Plan of Care Note [code = 77081-3] Goal Plan of Care Note [code = 52886-9] Goal Plan of Care Note [code = 25565-9] Goal Plan of Care Note [code = 36824-3] Goal Plan of Care Note [code = 80563-5] Goal Plan of Care Note [code = 53879-0] Goal Plan of Care Note [code = 46511-6] Goal Plan of Care Note [code = 63746-9] Goal Plan of Care Note [code = 54374-7] Goal Plan of Care Note [code = 86924-6] Goal Plan of Care Note [code = 01733-3] Goal Plan of Care Note [code = 28225-3] Goal Plan of Care Note [code = 91022-4] Goal Plan of Care Note [code = 78424-9] Goal Plan of Care Note [code = 72879-6] Goal Plan of Care Note [code = 95879-2] Goal Plan of Care Note [code = 91139-1] Goal Plan of Care Note [code = 02131-8] Goal Plan of Care Note [code = 47282-5] Goal Plan of Care Note [code = 71068-3] Goal Plan of Care Note [code = 37373-0] Goal Plan of Care Note [code = 59905-3] Goal Plan of Care Note [code = 71557-0] Goal Plan of Care Note [code = 67257-0] Goal Plan of Care Note [code = 13317-9] Goal Plan of Care Note [code = 82801-7] Goal Plan of Care Note [code = 48563-0] Goal Plan of Care Note [code = 38858-6] Goal Plan of Care Note [code = 13833-3] Goal Plan of Care Note [code = 75048-9] Goal Plan of Care Note [code = 15047-8] Goal Plan of Care Note [code = 38075-3] Goal Plan of Care Note [code = 04434-5] Goal Plan of Care Note [code = 88097-2] Goal Plan of Care Note [code = 03886-2] Goal Plan of Care Note [code = 12554-4] Goal Plan of Care Note [code = 60025-2] Goal Plan of Care Note [code = 44550-8] Goal Plan of Care Note [code = 43567-7] Goal Plan of Care Note [code = 64349-4] Goal Plan of Care Note [code = 46915-5] Goal Plan of Care Note [code = 20295-6] Goal Plan of Care Note [code = 06320-0] Goal Plan of Care Note [code = 42980-0] Goal Plan of Care Note [code = 69602-6] Goal Plan of Care Note [code = 47519-8] Goal Plan of Care Note [code = 26065-7] Goal Plan of Care Note [code = 73328-2] Goal Plan of Care Note [code = 12255-2] Goal Plan of Care Note [code = 84411-6] Goal Plan of Care Note [code = 04069-6] Goal Plan of Care Note [code = 30035-5] Goal Plan of Care Note [code = 55524-0] Goal Plan of Care Note [code = 26068-0] Goal Plan of Care Note [code = 55280-4] Goal Plan of Care Note [code = 73140-2] Goal Plan of Care Note [code = 19482-6] Goal Plan of Care Note [code = 94196-2] Goal Plan of Care Note [code = 43993-4] Goal Plan of Care Note [code = 60755-2] Goal Plan of Care Note [code = 30312-7] Goal Plan of Care Note [code = 61372-7] Goal Plan of Care Note [code = 51816-7] Goal Plan of Care Note [code = 51668-3] Goal Plan of Care Note [code = 83925-5] Goal Plan of Care Note [code = 30464-6] Goal Plan of Care Note [code = 81531-0] Goal Plan of Care Note [code = 32346-0] Goal Plan of Care Note [code = 88539-6] Goal Plan of Care Note [code = 33214-4] Goal Plan of Care Note [code = 09368-7] Goal Plan of Care Note [code = 11617-4] Goal Plan of Care Note [code = 05102-3] Goal Plan of Care Note [code = 60147-2] Goal Plan of Care Note [code = 94359-2] Goal Plan of Care Note [code = 78393-2] Goal Plan of Care Note [code = 41770-2] Goal Plan of Care Note [code = 97367-0] Goal Plan of Care Note [code = 35655-5] Goal Plan of Care Note [code = 94552-1] Goal Plan of Care Note [code = 93886-1] Goal Plan of Care Note [code = 11292-0] Goal Plan of Care Note [code = 61339-2] Goal Plan of Care Note [code = 01788-3] Goal Plan of Care Note [code = 99879-1] Goal Plan of Care Note [code = 06430-2] Goal Plan of Care Note [code = 48997-3] Goal Plan of Care Note [code = 23229-3] Goal Plan of Care Note [code = 53993-9] Goal Plan of Care Note [code = 60161-9] Goal Plan of Care Note [code = 89395-4] Goal Plan of Care Note [code = 02323-2] Goal Plan of Care Note [code = 35676-0] Goal Plan of Care Note [code = 87700-0] Goal Plan of Care Note [code = 16466-2] Goal Plan of Care Note [code = 77290-2] Goal Plan of Care Note [code = 72672-5] Goal Plan of Care Note [code = 83944-0] Goal Plan of Care Note [code = 37639-9] Goal Plan of Care Note [code = 95415-1] Goal Plan of Care Note [code = 56172-8] Goal Plan of Care Note [code = 59777-4] Goal Plan of Care Note [code = 65513-7] Goal Plan of Care Note [code = 45607-6] Goal Plan of Care Note [code = 65411-6] Goal Plan of Care Note [code = 78422-4] Goal Plan of Care Note [code = 17274-2] Goal Plan of Care Note [code = 75380-5] Goal Plan of Care Note [code = 99026-4] Goal Plan of Care Note [code = 24762-1] Goal Plan of Care Note [code = 06040-7] Goal Plan of Care Note [code = 22809-6] Goal Plan of Care Note [code = 89624-4] Goal Plan of Care Note [code = 28171-4] Goal Plan of Care Note [code = 61269-2] Goal Plan of Care Note [code = 66096-2] Goal Plan of Care Note [code = 69008-8] Goal Plan of Care Note [code = 09610-0] Goal Plan of Care Note [code = 18021-0] Goal Plan of Care Note [code = 44066-5] Encounters Start End Encounter Admission Attending Care Care Encounter Source Date/Time Date/Time Type Type Clinicians Facility Department ID 2022-08-[address] [facility] [id number] [place] 15:25:23 [id number] [facility] 2022-07-[address] [facility] [id number] [place] 10:05:59 [id number] [facility] 2022-06-[address] [facility] [id number] [place] 03:40:38 [id number] [facility] 2022-06-[address] [facility] [id number] [place] 10:20:47 [id number] [facility] 2022-05-[address] [facility] [id number] [place] 13:03:39 [id number] [facility] 2022-05-[address] [facility] [id number] [place] 16:38:33 [id number] [facility] 2022-05-[address] [facility] [id number] [place] 11:26:24 [id number] [facility] 2022-05-[address] [facility] [id number] [place] 09:52:06 [id number] [facility] 2022-09-15 2022-09-15 Outpatient SFA SFA [id number] [place] 11:32:07 11:32:07 0104 F Metcalfe 2022-09-08 2022-09-08 Outpatient SFA SFA [id number] [place] 17:02:44 17:02:44 1228 F Metcalfe 2022-09-08 2022-09-08 Outpatient [id number] 11rn88-5 00:00:00 00:00:00 Visit 9yl0-0er0 fd2-4ba4-a -d14z-788 29e-56361v 97h87fjl8 71bcc2 2022-09-02 2022-09-02 Outpatient SFA SFA [id number] 022 [place] 09:12:40 09:12:40 1222 F Rahul 2022-09-02 2022-09-02 Outpatient [id number] [id number]-k 00:00:00 00:00:00 Visit fae4-4577 ae4-4577-9 -9c5f-683 t2k-347806 710g4e621 q8n634 2022-08-24 2022-08-24 Outpatient SFA SFA [id number] 022 [place] 12:04:12 12:04:12 1213 F Rahul 2022-08-19 2022-08-19 Outpatient SFA SFA [id number] 022 [place] 09:52:44 09:52:44 1208 F Rahul 2022-08-19 2022-08-19 Outpatient [id number]- [id number] [id number]-9 00:00:00 00:00:00 Visit 242a-4b5c 42a-4b5c-b -rz33-6a6 n66-3n3220 2652c99rp 7f31df 2022-08-17 2022-08-17 Outpatient SFA SFA [id number] 022 [place] 14:53:16 14:53:16 1206 F Rahul 2022-08-03 2022-08-03 Outpatient [facility] [id number] [place] 11:00:00 11:00:00 [facility] 2022-07-13 2022-07-13 Outpatient [facility] [id number] [place] 10:00:00 10:00:00 [facility] 2022-07-06 2022-07-06 Outpatient SFA SFA [id number] 022 [place] 11:03:24 11:03:24 1025 F Metcalfe 2022-06-29 2022-06-29 Outpatient SFA SFA [id number] 022 [place] 17:26:07 17:26:07 1018 F Rahul 2022-06-29 2022-06-29 Outpatient [id number]- [id number] [id number] gc2248-7 00:00:00 00:00:00 Visit 20o5-540f 1b2-410b-z -yr33-462 z84-04755d 74d41e9x6 41c4b9 2022-06-22 2022-06-22 Office [facility] [id number] [place] 10:00:00 11:33:14 Visit [facility] 350.1.13.58 [place] HERNANDEZ 2 9.2.7.2.686 [id number] 2022-05-19 2022-05-19 Outpatient [id number]- [id number] 00:00:00 00:00:00 Visit 8h47-9f45 k86-1n69-s -k8f2-nsy 6g6-hjg6au 6ut23rpzk 61fabf 2022-05-05 2022-05-06 Hospital ER Candi Alaniz [facility] [id number] [facility] 01:03[facility]00 15:33:00 [facility]-05 2022-05-06 [facility] Candi Alaniz [facility] [id number] [facility] 01:03:00 15:33:00 Encounter Alexei Grover [facility] 2022-05-05 2022-05-06 Inpatient [facility] [id number] [facility] 01:03:00 15:33:00 [facility] 2022-04-28 2022-04-28 Outpatient [id number]- [id number] zcc106-6 00:00:00 00:00:00 Visit 4l88-73x6 r90-01v0-x -m16r-788 54f-2092b7 5y00826vp 1933af 2022-01-18 2022-01-18 [facility] [id number] [facility] [address] 00:00:00 00:00:00 [facility] 2022-01-09 2022-01-16 Inpatient ER [facility] Neurosurger [id number] [facility] 23:44:00 17:42:00 y 2022-01-09 2022-01-16 [facility] [id number] 23:44:00 17:42:00 Encounter [facility] Helms [facility] 2022-01-09 2022-01-16 [facility] [id number] 23:44:00 17:42:00 Encounter Franklin Helms Amber [facility] 2020-03-25 2020-03-26 [facility] [id number] 21:50:30 03:12:00 Casie Gaston Suzanna 350.1.13.10 [place] 4.2.7.2.686 [place] [id number] 2020-03-25 2020-03-25 Emergency [facility] [id number] [facility] 21:50:30 21[facility]50:30 [facility] 2020-03-21 2020-03-21 [facility] [id number] 11:51:42 14:34:00 Dejesus Briseno 350.1.13.10 [place] 4.2.7.2.686 [place] [address] [id number] 2020-03-21 2020-03-21 Emergency X [facility] ERT [id number] [facility] 11:40:00 11:40:00 [facility] Results Test Description Test Time Test Comments Results Result Comments Source PAP TEST, THINPREP, IMAGED 2022-09-08 11:06:04 Test Item Value Reference Range Interpretation Comme nts SOURCE: (test code = Cervical/Endocervical 8001) SLIDES: (test code = 2 8011) LMP: (test code = SEE NOTE POST AUGUST PAUSAL 8082) SPECIMEN ADEQUACY: (NOTE) Satisfac tory for (test code = 99643) evaluati on. Endocervical cells absent. M etaplastic cells indicativ e of transformation zone cannot be reliably dis tinguished from parabasal or atrophic cells. INTERPRETATION: NILM/NO EPITH. ABNORMALITY;SEE (test code = 31181) BELOW -------- NEGATIVE FOR INTRAEPITHE LIAL LESION OR MALIGNANCY ( NILM) -- OTHER COMMENTS: (NOTE) Background m aterial (test code = 8081) consisten t with lubricant is present, whichi nterferes with specimen processing.Inte rpreted using an alternate me thod of processing. Thi s testwas developed and i ts performance douglas racteristics determined byCl inical Pathology [facility]. It has not been cleared orapproved by t [facility]. The laboratory is r egulated under CLIA asqu alified to perform high-co mplexity testing. This t est is usedfor clinica l purposes. It should not b e regarded asinvestigation al or for research. PET CARE WORKER: Nisa Xiong (test code = 8101) QC TECHNOLOGIST: MARIO Torres(ASCP) IAC (test code = 8111) LOCATION: (test code (NOTE) Specime ns processed and = 42033) interpreted at [facility], [address] [place] [address], Phone: , CLIA: [id number] CPT: (test code = (NOTE) 20128 UNLE SS OTHERWISE 8140) INDICATED, COMP UTER AIDED AND CYTOTECHNOL OGIST SCREENING PERFO RMED. The Pap test is a scree jersey test with an inheren t, but low probability of error. Your patient should be reminded to consult you immediately if she experien aidee any suspicious sign s or symptoms, regar dless of her Pap test result . An alternate repor t format containing imag es or consolidated pr ior Pap history is avai lable as applicable. PAP TEST, THINPREP, [id number] 00:00:00 Test Item Value Reference Range Interpretation Comments SOURCE: (test code = Cervical/Endocervical 8001) SLIDES: (test code = 2 8011) LMP: (test code = 8021) SEE NOTE SPECIMEN ADEQUACY: (NOTE) (test code = 35314) INTERPRETATION: (test NILM/NO EPITH. code = 21102) ABNORMALITY;SEE BELOW OTHER COMMENTS: (test (NOTE) code = 8081) PET CARE WORKER: (test Nisa Xiong code = 8101) QC TECHNOLOGIST: (test Guzman Leos,CT(ASCP) code = 8111) IAC LOCATION: (test code = (NOTE) 80800) CPT: (test code = 8140) (NOTE) PAP TEST, THINPREP, [id number] 00:00:00 Test Item Value Reference Range Interpretation Comments SOURCE: (test code = Cervical/Endocervical 8001) SLIDES: (test code = 2 8011) LMP: (test code = 8021) SEE NOTE SPECIMEN ADEQUACY: (NOTE) (test code = 85223) INTERPRETATION: (test NILM/NO EPITH. code = 65576) ABNORMALITY;SEE BELOW OTHER COMMENTS: (test (NOTE) code = 8081) PET CARE WORKER: (test Nisa Xiong code = 8101) QC TECHNOLOGIST: (test MARIO Torres(ASCP) code = 8111) IAC LOCATION: (test code = (NOTE) 59521) CPT: (test code = 8140) (NOTE) HPV HIGH RISK WITH GENOTYPE, [id number] 14:23:09 Test Item Value Reference Range Interpretation Comments HPV HIGH RISK INTERP NEGATIVE NEGATIVE (test code = 42001) HPV 16 (test code = NEGATIVE 05934) HPV 18 (test code = NEGATIVE 79030) HPV, HR, OTHER NEGATIVE Testing meth odology is GENOTYPES (test code real-ti me PCR utilizing = 55453) hydrolysis prob es with the Roque Nilay 4800 system. The asif t individually de tects genotypes 16 an d 18, as well as the oth er 12 high risk types (31,33,35,39,45 ,51,52,56 ,58,59,66,68). The expected result is negative. A neg ative result does not rule out the presence of HPV not included in the genotype set, a low leve l of infection or sp ecimen sampling error. UNLESS OTHERWISE INDIC ATED, ALL TESTING PERFORM ED ATCLINICAL PATH OLOGY LABORATORIES, [facility]. [address] [place] [address] LABORATOR Y DIRECTOR: LETICIA MARROQUIN M.D. CLIA NUMBER [id number] CAP ACCREDITATION N O. [id number] HPV HIGH RISK WITH GENOTYPE, [id number] 00:00:00 Test Item Value Reference Range Interpretation Comments HPV HIGH RISK INTERP (test code = NEGATIVE 63421) HPV 16 (test code = 37789) NEGATIVE HPV 18 (test code = 30884) NEGATIVE HPV, HR, OTHER GENOTYPES (test code NEGATIVE = 67468) HPV HIGH RISK WITH GENOTYPE, [id number] 00:00:00 Test Item Value Reference Range Interpretation Comments HPV HIGH RISK INTERP (test code = NEGATIVE 73682) HPV 16 (test code = 63807) NEGATIVE HPV 18 (test code = 12525) NEGATIVE HPV, HR, OTHER GENOTYPES (test code NEGATIVE = 42482) HEMOGLOBIN [id number] 06:03:47 Test Item Value Reference Range Interpretation Comments HEMOGLOBIN A1c (test 8.1 % 4.2-5.6 H AMERIC AN DIABETES code = 10395) ASSOCIATION IDELINES FOR HGB A1C: PREDIABETES/INC REASED RISK . . . . . . . 5.7 -6.4% DIAGNOSIS OF DI ABETES . . . . . . . . . >=6 .5% WITH CONFIRMATION OR APPROPRIATE SYMPTOMS NOTE: ASSAY MAY BE AFFECTED BY HEMOGLOBINOPATH IES (SICKLE CELL ANEMIA, S- C DISEASE, OTHERS) OR DONATO FICIALLY LOWERED BY DECR EASED RED CELL SURVIVAL ( HEMOLYTIC ANEMIAS, BLOOD LOSS, ETC.). CONSIDER ALTERN ATE TESTING OR LABORATORY C ONSULTATION. LIPID [id number] 05:32:51 Test Item Value Reference Range Interpretation Comments CHOLESTEROL (test 194 MG/DL <200 code = 2210) TRIGLYCERIDES (test 114 MG/DL <150 code = 2232) HDL CHOLESTEROL (test 54 MG/DL >39 code = 2220) CALC LDL CHOL (test 118 MG/DL <100 H NOTE: C ALCULATED LDL code = 2237) IS BASED ON NIXON-REDD METHOD WHICHINCLUDES ADJUSTABLE TRIGLYCERIDE:VL DL CHOLESTEROL RAT IO.THIS FACTOR VARIES B Y MEASURED TRIGLY CERIDE AND NON-HDLCHOL ESTEROL CONCENTRATIONS WITH INCREASED CALCU LATED LDL SEENIN HIGH ER TRIGLYCERIDE OR LOWER NON-HDL SPECIME NS. FOR MOREINFORMATION , SEE CLIENT ANNOUNCE MENT AT [email or web address] RISK RATIO LDL/HDL 2.19 RATIO <3.22 UNLESS O THERWISE (test code = 2238) INDICATED , ALL TESTING PERFORMED [facility], [place] [address] [place] [address] LYNNETTE MACKENZIE DIRECTOR: LETICIA MARROQUIN M.D. CLIA NUMBER [id number] [facility] ACCREDITATION N O. [id number] HEMOGLOBIN [id number] 00:00:00 Test Item Value Reference Range Interpretation Comments HEMOGLOBIN A1c (test code = 54376) 8.1 % HEMOGLOBIN [id number] 00:00:00 Test Item Value Reference Range Interpretation Comments HEMOGLOBIN A1c (test code = 85190) 8.1 % HEMOGLOBIN [id number] 00:00:00 Test Item Value Reference Range Interpretation Comments HEMOGLOBIN A1c (test code = 54684) 8.1 % LIPID [id number] 00:00:00 Test Item Value Reference Range Interpretation Comments CHOLESTEROL (test code = 2210) 194 MG/DL TRIGLYCERIDES (test code = 2232) 114 MG/DL HDL CHOLESTEROL (test code = 2220) 54 MG/DL CALC LDL CHOL (test code = 2237) 118 MG/DL RISK RATIO LDL/HDL (test code = 2.19 RATIO 2238) LIPID [id number] 00:00:00 Test Item Value Reference Range Interpretation Comments CHOLESTEROL (test code = 2210) 194 MG/DL TRIGLYCERIDES (test code = 2232) 114 MG/DL HDL CHOLESTEROL (test code = 2220) 54 MG/DL CALC LDL CHOL (test code = 2237) 118 MG/DL RISK RATIO LDL/HDL (test code = 2.19 RATIO 2238) HEMOGLOBIN [id number] 00:00:00 Test Item Value Reference Range Interpretation Comments HEMOGLOBIN A1c (test code = 64948) 8.1 % HEMOGLOBIN [id number] 00:00:00 Test Item Value Reference Range Interpretation Comments HEMOGLOBIN A1c (test code = 65138) 8.1 % HEMOGLOBIN [id number] 00:00:00 Test Item Value Reference Range Interpretation Comments HEMOGLOBIN A1c (test code = 68520) 8.1 % LIPID [id number] 00:00:00 Test Item Value Reference Range Interpretation Comments CHOLESTEROL (test code = 2210) 194 MG/DL TRIGLYCERIDES (test code = 2232) 114 MG/DL HDL CHOLESTEROL (test code = 2220) 54 MG/DL CALC LDL CHOL (test code = 2237) 118 MG/DL RISK RATIO LDL/HDL (test code = 2.19 RATIO 2238) LIPID [id number] 00:00:00 Test Item Value Reference Range Interpretation Comments CHOLESTEROL (test code = 2210) 194 MG/DL TRIGLYCERIDES (test code = 2232) 114 MG/DL HDL CHOLESTEROL (test code = 2220) 54 MG/DL CALC LDL CHOL (test code = 2237) 118 MG/DL RISK RATIO LDL/HDL (test code = 2.19 RATIO 2238) HEMOGLOBIN [id number] 00:00:00 Test Item Value Reference Range Interpretation Comments HEMOGLOBIN A1c (test code = 19256) 8.1 % HEMOGLOBIN [id number] 00:00:00 Test Item Value Reference Range Interpretation Comments HEMOGLOBIN A1c (test code = 88452) 8.1 % HEMOGLOBIN [id number] 00:00:00 Test Item Value Reference Range Interpretation Comments HEMOGLOBIN A1c (test code = 42369) 8.1 % LIPID [id number] 00:00:00 Test Item Value Reference Range Interpretation Comments CHOLESTEROL (test code = 2210) 194 MG/DL TRIGLYCERIDES (test code = 2232) 114 MG/DL HDL CHOLESTEROL (test code = 2220) 54 MG/DL CALC LDL CHOL (test code = 2237) 118 MG/DL RISK RATIO LDL/HDL (test code = 2.19 RATIO 2238) LIPID [id number] 00:00:00 Test Item Value Reference Range Interpretation Comments CHOLESTEROL (test code = 2210) 194 MG/DL TRIGLYCERIDES (test code = 2232) 114 MG/DL HDL CHOLESTEROL (test code = 2220) 54 MG/DL CALC LDL CHOL (test code = 2237) 118 MG/DL RISK RATIO LDL/HDL (test code = 2.19 RATIO 2238) MR, SPINE, LUMBAR, [id number] 14:57:00Unlisted Reason for Exam - Click Yes and Enter Reason Below->NoDoes the patient have an implantedelectronic device?->[facility]IAS GARCIA : 1960 Sex: FFINAL REPORT MR, SPINE, LUMBAR, WITH \\T\\ WITHOUT CONTRAST, MR, SPINE, THORACIC, WITH \\T\\ WITHOUT CONTRAST INDICATION: Compression fracture, lumbar COMPARISON: None TECHNIQUE: Multiplanar, multisequence MR images of the lumbar spine without contrast. FINDINGS: THORACIC SPINE: Alignment of the thoracic spine is within normal limits. Vertebral body height is maintained.Mild multi level disc space height loss is present. Marrow signal intensity is within normal limits for age.Thoracic cord is normal in signal intensityNo acute findings within the paraspinal soft tissues. LUMBAR SPINE: 5 nonrib-bearing lumbar-type vertebral bodies are present. Alignment of the lumbar spine is wit hin normal limits. Acute superior endplate fracture of L5 with 30% loss of superior endplate height and mild retropulsion. No compression of the cauda equina nerve roots.Multilevel disc space height loss is present, most conspicuous at L4-J3Aqvug terminates at L1-L2 disc space level.Cauda equina demonstrates normal appearance.No acute findings in the paraspinal soft tissues. Evaluation of the individual levels demonstrates: L1/L2: Disc bulge, asymmetric to the right. No significant canal or foraminal stenosis.L2/L3: No significant canal or foraminal narrowing.L3/L4: Diffuse disc bulge. Ligamentum flavum thickening. Bilateral facet arthropathy and hypertrophy. Moderate left foraminal stenosis with crowding of the exiting left L3 nerve root. Mild spinal canal stenosis.L4/L5: Diffuse disc bulge. Significant posterior epidural fat. Ligamentum flavum thickening. Bilateral facet arthropathy and hypertrophy. Moderate bilateral foraminal stenosis with crowding of the exiting L4 nerve roots. Severe spinal canal stenosis.L5/S1: Diffuse disc bulge. Ligamentum flavum thickening. Bilateral facet arthropathy and hypertrophy. Mild bilateral foraminal stenosis. No significant spinal canal narrowing. IMPRESSION:1.Recent superior endplate fracture of L5 with 30% loss of superior endplate height. Mild retropulsion. There is severe canal stenosis at this level due to a combination of ligamentous thickening andposterior epidural fat and disc disease with minimal contribution from retropulsed endplate.2.Moderate left foraminal stenosis at L3-L4 with crowding of the exiting left L3 nerve root.3.Moderate bilateral foraminal stenosis at L4-L5 with crowding the exiting L4 nerve roots. Signed: Vanda Foster MDReport Verified Date/Time: 05/06/2022 14:57:29 MR, SPINE, THORACIC, [id number] 14:57:00Unlisted Reason for Exam - Click Yes and Enter Reason Below->No [facility] CENTERName: GEREMIAS GARCIA : 1960 Sex: FFINAL REPORT MR, SPINE, LUMBAR, WITH \\T\\ WITHOUT CONTRAST, MR, SPINE, THORACIC, WITH \\T\\ WITHOUT CONTRAST INDICATION: Compression fracture, lumbar COMPARISON: None TECHNIQUE: Multiplanar, multisequence MR images of the lumbar spine without contrast. FINDINGS: THORACIC SPINE: Alignment of the thoracic spine is within normal limits. Vertebral body height is maintained.Mild multi level disc space height loss is present. Marrow signal intensity is within normal limits for age.Thoracic cord is normal in signal intensityNo acute findings within the paraspinal soft tissues. LUMBAR SPINE: 5 nonrib-bearing lumbar-type vertebral bodies are present. Alignment of the lumbar spine is wit hin normal limits. Acute superior endplate fracture of L5 with 30% loss of superior endplate height and mild retropulsion. No compression of the cauda equina nerve roots.Multilevel disc space height loss is present, most conspicuous at L4-M7Blyff terminates at L1-L2 disc space level.Cauda equina demonstrates normal appearance.No acute findings in the paraspinal soft tissues. Evaluation of the individual levels demonstrates: L1/L2: Disc bulge, asymmetric to the right. No significant canal or foraminal stenosis.L2/L3: No significant canal or foraminal narrowing.L3/L4: Diffuse disc bulge. Ligamentum flavum thickening. Bilateral facet arthropathy and hypertrophy. Moderate left foraminal stenosis with crowding of the exiting left L3 nerve root. Mild spinal canal stenosis.L4/L5: Diffuse disc bulge. Significant posterior epidural fat. Ligamentum flavum thickening. Bilateral facet arthropathy and hypertrophy. Moderate bilateral foraminal stenosis with crowding of the exiting L4 nerve roots. Severe spinal canal stenosis.L5/S1: Diffuse disc bulge. Ligamentum flavum thickening. Bilateral facet arthropathy and hypertrophy. Mild bilateral foraminal stenosis. No significant spinal canal narrowing. IMPRESSION:1.Recent superior endplate fracture of L5 with 30% loss of superior endplate height. Mild retropulsion. There is severe canal stenosis at this level due to a combination of ligamentous thickening andposterior epidural fat and disc disease with minimal contribution from retropulsed endplate.2.Moderate left foraminal stenosis at L3-L4 with crowding of the exiting left L3 nerve root.3.Moderate bilateral foraminal stenosis at L4-L5 with crowding the exiting L4 nerve roots. Signed: Vanda Foster MDReport Verified Date/Time: 05/06/2022 14:57:29 -Glucose [id number] 12:49:51 Test Item Value Reference Range Interpretation Comments POC-Glucose Meter (test 218 mg/dL 70-110 H : TE STED AT [facility] code = 1538) [address] [place] [address], [facility] 30: Culture Manager/Techni vic ID = [id number] for Jaimee Jameson Lab Interpretation (test Abnormal code = 08759-7) [facility] [id number] 12:49:51 Test Item Value Reference Range Interpretation Comments POC-Glucose Meter (test 218 mg/dL 70-110 H : TE STED AT [facility] code = 1538) [address] [place] [address], [facility] 30: Culture Manager/Techni vic ID = [id number] for Raymundo Jamesonia Lab Interpretation (test Abnormal code = 49410-8) [facility]-Glucose [id number] 12:49:51 Test Item Value Reference Range Interpretation Comments POC-Glucose Meter (test 218 mg/dL 70-110 H : TE STED AT [facility] code = 1538) [address] [place] [address] 30: Culture Manager/Techni vic ID = [id number] for Raymundo Jamesonia Lab Interpretation (test Abnormal code = 84234-7) [facility]-Glucose [id number] 12:49:51 Test Item Value Reference Range Interpretation Comments POC-Glucose Meter (test 218 mg/dL 70-110 H : TE STED AT [facility] code = 1538) [address] [place] [address], [facility] 30: Culture Manager/Techni vic ID = [id number] for Trino Jaimee Lab Interpretation (test Abnormal code = 98544-0) [facility]-Glucose [id number] 12:49:51 Test Item Value Reference Range Interpretation Comments POC-Glucose Meter (test 218 mg/dL 70-110 H : TE STED AT [facility] code = 1538) [address] [place] [address], [facility] 30: Culture Manager/Techni vic ID = [id number] for Raymundo Jamesonia Lab Interpretation (test Abnormal code = 69694-6) [facility]-Glucose [id number] 12:49:51 Test Item Value Reference Range Interpretation Comments POC-Glucose Meter (test 218 mg/dL 70-110 H : TE STED AT [facility] code = 1538) [address] [place] [address], [facility] 30: Culture Manager/Techni vic ID = [id number] for Raymundo Jamesonia Lab Interpretation (test Abnormal code = 25675-4) [facility]-Glucose [id number] 12:49:51 Test Item Value Reference Range Interpretation Comments POC-Glucose Meter (test 218 mg/dL 70-110 H : TE STED AT [facility] code = 1538) [address] [place] [address], [facility] 30: Culture Manager/Techni vic ID = [id number] for Raymundo Jamesonia Lab Interpretation (test Abnormal code = 91766-1) [facility] [id number] 12:49:51 Test Item Value Reference Range Interpretation Comments POC-Glucose Meter (test 218 mg/dL 70-110 H : TE STED AT [facility] code = 1538) [address] [place] [address], 770 30: Culture Manager/Techni vic ID = [id number] for Jaimee Jameson Lab Interpretation (test Abnormal code = 90068-7) [facility]-Glucose [id number] 12:49:51 Test Item Value Reference Range Interpretation Comments POC-Glucose Meter (test 218 mg/dL 70-110 H : TE STED AT [facility] code = 1538) [address] [place] [address], [facility] 30: Culture Manager/Techni vic ID = [id number] for Jaimee Jameson Lab Interpretation (test Abnormal code = 28995-1) [facility]-Glucose [id number] 12:49:51 Test Item Value Reference Range Interpretation Comments POC-Glucose Meter (test 218 mg/dL 70-110 H : TE STED AT [facility] code = 1538) [address] [place] [address], 770 30: Culture Manager/Techni vic ID = [id number] for Jaimee Jameson Lab Interpretation (test Abnormal code = 11989-7) [facility]-Glucose [id number] 12:49:51 Test Item Value Reference Range Interpretation Comments POC-Glucose Meter (test 218 mg/dL 70-110 H : TE STED AT [facility] code = 1538) [address] [place] [address], [facility] 30: Culture Manager/Techni vic ID = [id number] for Jaimee Jameson Lab Interpretation (test Abnormal code = 32554-6) [facility]-Glucose [id number] 12:49:51 Test Item Value Reference Range Interpretation Comments POC-Glucose Meter (test 218 mg/dL 70-110 H : TE STED AT [facility] code = 1538) [address] [place] [address], 770 30: Culture Manager/Techni vic ID = [id number] for Jaimee Jameson Lab Interpretation (test Abnormal code = 03144-4) [facility]-Glucose [id number] 12:49:51 Test Item Value Reference Range Interpretation Comments POC-Glucose Meter (test 218 mg/dL 70-110 H : TE STED AT [facility] code = 1538) 20 [facility], 770 30: Culture Manager/Techni vic ID = [id number] for Jaimee Jameson Lab Interpretation (test Abnormal code = 21172-3) [facility]-Glucose [id number] 12:49:51 Test Item Value Reference Range Interpretation Comments POC-Glucose Meter (test 218 mg/dL 70-110 H : TE STED AT [facility] code = 1538) [address] [place] [address], 770 30: Culture Manager/Techni vic ID = [id number] for Jaimee Jameson Lab Interpretation (test Abnormal code = 49200-9) [facility]-Glucose [id number] 12:49:51 Test Item Value Reference Range Interpretation Comments POC-Glucose Meter (test 218 mg/dL 70-110 H : TE STED AT [facility] code = 1538) [address] [place] [address], 770 30: Culture Manager/Techni vic ID = [id number] for Jaimee Jameson Lab Interpretation (test Abnormal code = 81957-8) [facility]-Glucose [id number] 12:49:51 Test Item Value Reference Range Interpretation Comments POC-Glucose Meter (test 218 mg/dL 70-110 H : TE STED AT [facility] code = 1538) [address] [place] [address], 770 30: Culture Manager/Techni vic ID = [id number] for Jaimee Jameson Lab Interpretation (test Abnormal code = 99024-3) [facility]-GLUCOSE [id number] 12:49:51 Test Item Value Reference Range Interpretation Comments POC-GLUCOSE METER 218 mg/dL 70-110 H : TESTED A T [facility] 6720 (BEAKER) (test code = [facility], 1538) [address]: Culture Manager/Techni vic ID = [id number] for Jaimee Long HEMOGLOBIN [id number] 11:05:11 Test Item Value Reference Range Interpretation Comments HEMOGLOBIN A1C 12.7 % See_Comment H [Automated m essage] ELECTROPHORESIS (BEAKER) The system which (test code = 3811) generated this result transmitted ref erence range: <=5.6%. The reference range was not used to int erpret this result as normal/abnormal . "The A1c is measured using a NGSP-certified method. HbA1c value equal to or greater than 6.5% as thediagnosis cutoff for diabetes. An HbA1c value of 5.7- 6.4% indicates increased risk for diabetes (prediabetes)."Culture Manager ID - ADMPOCT- GLUCOSE [id number] 08:07:32 Test Item Value Reference Range Interpretation Comments POC-GLUCOSE METER 384 mg/dL 70-110 H : [facility] (BEAKER) (test code = ARIS Johnson [facility], 1538) [address]: Culture Manager/Techni vic ID = [id number] for BROOKE [place] BASIC METABOLIC [id number] 06:23:39 Test Item Value Reference Range Interpretation Comments SODIUM (BEAKER) 134 meq/L 136-145 L (test code = 381) POTASSIUM 4.4 meq/L 3.5-5.1 (BEAKER) (test code = 379) CHLORIDE (BEAKER) 100 meq/L 98-107 (test code = 382) CO2 (BEAKER) 24 meq/L 22-29 (test code = 355) BLOOD UREA 26 mg/dL 7-21 H NITROGEN (BEAKER) (test code = 354) CREATININE 0.90 mg/dL 0.57-1.25 (BEAKER) (test code = 358) GLUCOSE RANDOM 434 mg/dL 70-105 HH (BEAKER) (test code = 652) CALCIUM (BEAKER) 9.2 mg/dL 8.4-10.2 (test code = 697) EGFR (BEAKER) 73 Interpretatio n of eGFR (test code = mL/min/1.73 values Stage De scription 1092) sq m Result G1 Gayle l or high >=90 G2 Mildly decreased 60-89 G3a Mildl y to moderately 45-5 9 G3b Moderately to s everely 30-44 G4 Severl y decreased 15-29 G5 Kidney failure <15Reported eGF R is based on the CKD-EPI 1 equation that d oes not use a race coefficientEsti mated GFR is not as accur ate as Creatinine Muriel dana in predicting glom erular filtration rate . Estimated GFR is not appl icable for dialysis patien ts Culture Manager ID - PIAYA LPOCT-GLUCOSE [id number] 22:26:42 Test Item Value Reference Range Interpretation Comments POC-GLUCOSE METER 241 mg/dL 70-110 H : TESTED A T [facility] 6720 (BEAKER) (test code = [facility], 153) [address]: Culture Manager/Techni vic ID = [id number] for SHAWN SIERRA POCT-GLUCOSE [id number] 22:26:14 Test Item Value Reference Range Interpretation Comments POC-GLUCOSE METER 299 mg/dL 70-110 H : TESTED A T [facility] 6720 (BEAKER) (test code = [facility], 1538) [address]: Culture Manager/Techni vic ID = [id number] for Kentrell Longce POCT-GLUCOSE [id number] 18:17:58 Test Item Value Reference Range Interpretation Comments POC-GLUCOSE METER 326 mg/dL 70-110 H : TESTED A T [facility] 6720 (BEAKER) (test code = [facility], 1538) [address]: Culture Manager/Techni vic ID = [id number] for Marija Sierranda POCT-GLUCOSE [id number] 15:08:29 Test Item Value Reference Range Interpretation Comments POC-GLUCOSE METER 375 mg/dL 70-110 H : TESTED A T [facility] 6720 (BEAKER) (test code = [facility], [facility]8) [address]: Culture Manager/Techni vic ID = [id number] for Mayi Morton SARS-CoV2/RT-PCR (Asymptomatic ONLY)2022-05-05 14:39:14 Test Item Value Reference Range Interpretation Comments SARS-COV2/RT-PCR Negative Not Detected, (test code = Negative, See 43698-8) external report for linked test SARS-COV-2 [facility] (test code = 46550-0) MITESH (test code = Negative result for this MITESH) test determines that SARS-CoV-2 RNA was not present in the specimen above the Limit of Detection (LOD). However, Negative results do not preclude SARS-CoV-2 infection and should not be used as the sole basis for treatment or patient management decisions. Negative results must be combined with clinical observations, patient history, and epidemiological information. A false negative result may occur if a specimen is improperly collected, transported or handled. A false negative result should be considered if patient's recent exposures or clinical presentation indicate that COVID-19 (SARS-CoV-2) is likely and diagnostic tests for other causes of illness are negative. Re-testing should be considered in cases of suspected false negatives. The limit of detection for this assay is 800 copies/mL. This SARS CoV-2 test is a real-time RT-PCR test intended for the qualitative detection of nucleic acid from SARS-CoV-2 in a nasopharyngeal swab specimen collected from individuals suspected of COVID-19 by their healthcare provider. This test has not been Food and Drug Administration (FDA) cleared or approved. This is a modified version of an approved Emergency Use Authorization (EUA) and is in the process of review by the FDA. Once authorized by the FDA, the issued EUA will be effective until the declaration that circumstances exist justifying the authorization of the emergency use of in vitro diagnostic tests for detection and/or diagnosis of COVID-19 is terminated under Section 564(b)(2) of the Act or the EUA is revoked under Section 564(g) of the Act. Fact Sheet for Healthcare Providers:https://www.Genius/sites/default/f delvis/product/documents/F act_Sheet_HC_Providers_L ckm_LTTS-DvL-1.pdf Fact Sheet for Healthcare Patients:https://www.Flexcom.[employer]/sites/default/fi les/product/documents/Fa ct_Sheet_Patients_Lyra_S ARS-CoV-2.pdf Performing Laboratory:[facility] [place] [address] [facility]omatic ONLY[facility]2022-05-05 14:39:14 Test Item Value Reference Range Interpretation Comments SARS-COV2/RT-PCR Negative Not Detected, (test code = Negative, See 80787-4) external report for linked test SARS-COV-2 [facility] (test code = 91172-1) MITESH (test code = Negative result for this MITESH) test determines that SARS-CoV-2 RNA was not present in the specimen above the Limit of Detection (LOD). However, Negative results do not preclude SARS-CoV-2 infection and should not be used as the sole basis for treatment or patient management decisions. Negative results must be combined with clinical observations, patient history, and epidemiological information. A false negative result may occur if a specimen is improperly collected, transported or handled. A false negative result should be considered if patient's recent exposures or clinical presentation indicate that COVID-19 (SARS-CoV-2) is likely and diagnostic tests for other causes of illness are negative. Re-testing should be considered in cases of suspected false negatives. The limit of detection for this assay is 800 copies/mL. This SARS CoV-2 test is a real-time RT-PCR test intended for the qualitative detection of nucleic acid from SARS-CoV-2 in a nasopharyngeal swab specimen collected from individuals suspected of COVID-19 by their healthcare provider. This test has not been Food and Drug Administration (FDA) cleared or approved. This is a modified version of an approved Emergency Use Authorization (EUA) and is in the process of review by the FDA. Once authorized by the FDA, the issued EUA will be effective until the declaration that circumstances exist justifying the authorization of the emergency use of in vitro diagnostic tests for detection and/or diagnosis of COVID-19 is terminated under Section 564(b)(2) of the Act or the EUA is revoked under Section 564(g) of the Act. Fact Sheet for Healthcare Providers:https://www.Storific.[employer]/sites/default/f delvis/product/documents/F act_Sheet_HC_Providers_L pqc_DOER-DwP-5.pdf Fact Sheet for Healthcare Patients:https://www.Flexcom.[employer]/sites/default/fi les/product/documents/Fa ct_Sheet_Patients_Lyra_S ARS-CoV-2.pdf Performing Laboratory:[facility] [place] [address] [facility] (Asymptomatic ONLY)2022-05-05 14:39:14 Test Item Value Reference Range Interpretation Comments SARS-COV2/RT-PCR Negative Not Detected, (test code = Negative, See 51886-1) external report for linked test SARS-COV-2 [facility] (test code = 75418-2) MITESH (test code = Negative result for this MITESH) test determines that SARS-CoV-2 RNA was not present in the specimen above the Limit of Detection (LOD). However, Negative results do not preclude SARS-CoV-2 infection and should not be used as the sole basis for treatment or patient management decisions. Negative results must be combined with clinical observations, patient history, and epidemiological information. A false negative result may occur if a specimen is improperly collected, transported or handled. A false negative result should be considered if patient's recent exposures or clinical presentation indicate that COVID-19 (SARS-CoV-2) is likely and diagnostic tests for other causes of illness are negative. Re-testing should be considered in cases of suspected false negatives. The limit of detection for this assay is 800 copies/mL. This SARS CoV-2 test is a real-time RT-PCR test intended for the qualitative detection of nucleic acid from SARS-CoV-2 in a nasopharyngeal swab specimen collected from individuals suspected of COVID-19 by their healthcare provider. This test has not been Food and Drug Administration (FDA) cleared or approved. This is a modified version of an approved Emergency Use Authorization (EUA) and is in the process of review by the FDA. Once authorized by the FDA, the issued EUA will be effective until the declaration that circumstances exist justifying the authorization of the emergency use of in vitro diagnostic tests for detection and/or diagnosis of COVID-19 is terminated under Section 564(b)(2) of the Act or the EUA is revoked under Section 564(g) of the Act. Fact Sheet for Healthcare Providers:https://www.Electrikusl.[employer]/sites/default/f delvis/product/documents/F act_Sheet_HC_Providers_L syv_IQXF-YxV-9.pdf Fact Sheet for Healthcare Patients:https://www.CINEPASS del.[employer]/sites/default/fi les/product/documents/Fa ct_Sheet_Patients_Lyra_S ARS-CoV-2.pdf Performing Laboratory:[facility] [place] [address] [facility] (Asymptomatic ONLY)2022-05-05 14:39:14 Test Item Value Reference Range Interpretation Comments SARS-COV2/RT-PCR Negative Not Detected, (test code = Negative, See 28012-3) external report for linked test SARS-COV-2 [facility] (test code = 57538-8) MITESH (test code = Negative result for this MITESH) test determines that SARS-CoV-2 RNA was not present in the specimen above the Limit of Detection (LOD). However, Negative results do not preclude SARS-CoV-2 infection and should not be used as the sole basis for treatment or patient management decisions. Negative results must be combined with clinical observations, patient history, and epidemiological information. A false negative result may occur if a specimen is improperly collected, transported or handled. A false negative result should be considered if patient's recent exposures or clinical presentation indicate that COVID-19 (SARS-CoV-2) is likely and diagnostic tests for other causes of illness are negative. Re-testing should be considered in cases of suspected false negatives. The limit of detection for this assay is 800 copies/mL. This SARS CoV-2 test is a real-time RT-PCR test intended for the qualitative detection of nucleic acid from SARS-CoV-2 in a nasopharyngeal swab specimen collected from individuals suspected of COVID-19 by their healthcare provider. This test has not been Food and Drug Administration (FDA) cleared or approved. This is a modified version of an approved Emergency Use Authorization (EUA) and is in the process of review by the FDA. Once authorized by the FDA, the issued EUA will be effective until the declaration that circumstances exist justifying the authorization of the emergency use of in vitro diagnostic tests for detection and/or diagnosis of COVID-19 is terminated under Section 564(b)(2) of the Act or the EUA is revoked under Section 564(g) of the Act. Fact Sheet for Healthcare Providers:https://www.Amitree ideBunkr.[employer]/sites/default/f delvis/product/documents/F act_Sheet_HC_Providers_L fqt_VOJT-RiV-2.pdf Fact Sheet for Healthcare Patients:https://www.CINEPASS del.[employer]/sites/default/fi les/product/documents/Fa ct_Sheet_Patients_Lyra_S ARS-CoV-2.pdf Performing Laboratory:[facility] [place] [address] [facility]omatic ONLY)2022-05-05 14:39:14 Test Item Value Reference Range Interpretation Comments SARS-COV2/RT-PCR Negative Not Detected, (test code = Negative, See 02409-1) external report for linked test SARS-COV-2 [facility] (test code = 15080-4) MITESH (test code = Negative result for this MITESH) test determines that SARS-CoV-2 RNA was not present in the specimen above the Limit of Detection (LOD). However, Negative results do not preclude SARS-CoV-2 infection and should not be used as the sole basis for treatment or patient management decisions. Negative results must be combined with clinical observations, patient history, and epidemiological information. A false negative result may occur if a specimen is improperly collected, transported or handled. A false negative result should be considered if patient's recent exposures or clinical presentation indicate that COVID-19 (SARS-CoV-2) is likely and diagnostic tests for other causes of illness are negative. Re-testing should be considered in cases of suspected false negatives. The limit of detection for this assay is 800 copies/mL. This SARS CoV-2 test is a real-time RT-PCR test intended for the qualitative detection of nucleic acid from SARS-CoV-2 in a nasopharyngeal swab specimen collected from individuals suspected of COVID-19 by their healthcare provider. This test has not been Food and Drug Administration (FDA) cleared or approved. This is a modified version of an approved Emergency Use Authorization (EUA) and is in the process of review by the FDA. Once authorized by the FDA, the issued EUA will be effective until the declaration that circumstances exist justifying the authorization of the emergency use of in vitro diagnostic tests for detection and/or diagnosis of COVID-19 is terminated under Section 564(b)(2) of the Act or the EUA is revoked under Section 564(g) of the Act. Fact Sheet for Healthcare Providers:https://www.Storific.[employer]/sites/default/f delvis/product/documents/F act_Sheet_HC_Providers_L uls_AQCL-PxA-8.pdf Fact Sheet for Healthcare Patients:https://www.CINEPASS del.[employer]/sites/default/fi les/product/documents/Fa ct_Sheet_Patients_Ly_S ARS-CoV-2.pdf Performing Laboratory:[facility] [place] [address] [facility] (Asymptomatic ONLY)2022-05-05 14:39:14 Test Item Value Reference Range Interpretation Comments SARS-COV2/RT-PCR Negative Not Detected, (test code = Negative, See 77298-0) external report for linked test SARS-COV-2 [facility] (test code = 13322-1) MITESH (test code = Negative result for this MITESH) test determines that SARS-CoV-2 RNA was not present in the specimen above the Limit of Detection (LOD). However, Negative results do not preclude SARS-CoV-2 infection and should not be used as the sole basis for treatment or patient management decisions. Negative results must be combined with clinical observations, patient history, and epidemiological information. A false negative result may occur if a specimen is improperly collected, transported or handled. A false negative result should be considered if patient's recent exposures or clinical presentation indicate that COVID-19 (SARS-CoV-2) is likely and diagnostic tests for other causes of illness are negative. Re-testing should be considered in cases of suspected false negatives. The limit of detection for this assay is 800 copies/mL. This SARS CoV-2 test is a real-time RT-PCR test intended for the qualitative detection of nucleic acid from SARS-CoV-2 in a nasopharyngeal swab specimen collected from individuals suspected of COVID-19 by their healthcare provider. This test has not been Food and Drug Administration (FDA) cleared or approved. This is a modified version of an approved Emergency Use Authorization (EUA) and is in the process of review by the FDA. Once authorized by the FDA, the issued EUA will be effective until the declaration that circumstances exist justifying the authorization of the emergency use of in vitro diagnostic tests for detection and/or diagnosis of COVID-19 is terminated under Section 564(b)(2) of the Act or the EUA is revoked under Section 564(g) of the Act. Fact Sheet for Healthcare Providers:https://www.[employer]or[employer].com/sites/default/f delvis/product/documents/F act_Sheet_HC_Providers_L wqf_JHTL-MoI-7.pdf Fact Sheet for Healthcare Patients:https://www.Flexcom.com/sites/default/fi les/product/documents/Fa ct_Sheet_Patients_Keith_S ARS-CoV-2.pdf Performing Laboratory:[facility] [place] [address] [facility]2022-05-05 14:39:14 Test Item Value Reference Range Interpretation Comments SARS-COV2/RT-PCR Negative Not Detected, (test code = Negative, See 41179-5) external report for linked test SARS-COV-2 [facility] (test code = 84768-8) MITESH (test code = Negative result for this MITESH) test determines that SARS-CoV-2 RNA was not present in the specimen above the Limit of Detection (LOD). However, Negative results do not preclude SARS-CoV-2 infection and should not be used as the sole basis for treatment or patient management decisions. Negative results must be combined with clinical observations, patient history, and epidemiological information. A false negative result may occur if a specimen is improperly collected, transported or handled. A false negative result should be considered if patient's recent exposures or clinical presentation indicate that COVID-19 (SARS-CoV-2) is likely and diagnostic tests for other causes of illness are negative. Re-testing should be considered in cases of suspected false negatives. The limit of detection for this assay is 800 copies/mL. This SARS CoV-2 test is a real-time RT-PCR test intended for the qualitative detection of nucleic acid from SARS-CoV-2 in a nasopharyngeal swab specimen collected from individuals suspected of COVID-19 by their healthcare provider. This test has not been Food and Drug Administration (FDA) cleared or approved. This is a modified version of an approved Emergency Use Authorization (EUA) and is in the process of review by the FDA. Once authorized by the FDA, the issued EUA will be effective until the declaration that circumstances exist justifying the authorization of the emergency use of in vitro diagnostic tests for detection and/or diagnosis of COVID-19 is terminated under Section 564(b)(2) of the Act or the EUA is revoked under Section 564(g) of the Act. Fact Sheet for Healthcare Providers:https://www.[employer]or[employer]/sites/default/f delvis/product/documents/F act_Sheet_HC_Providers_L gzr_ILSB-SdZ-3.pdf Fact Sheet for Healthcare Patients:https://www.Paradine/sites/default/fi les/product/documents/Fa ct_Sheet_Patients_Lyra_S ARS-CoV-2.pdf Performing Laboratory:[facility] [place] [address] [facility]As[facility]omatic ONLY[facility]2022-05-05 14:39:14 Test Item Value Reference Range Interpretation Comments SARS-COV2/RT-PCR Negative Not Detected, (test code = Negative, See 53774-7) external report for linked test SARS-COV-2 [facility] (test code = 73871-8) MITESH (test code = Negative result for this MITESH) test determines that SARS-CoV-2 RNA was not present in the specimen above the Limit of Detection (LOD). However, Negative results do not preclude SARS-CoV-2 infection and should not be used as the sole basis for treatment or patient management decisions. Negative results must be combined with clinical observations, patient history, and epidemiological information. A false negative result may occur if a specimen is improperly collected, transported or handled. A false negative result should be considered if patient's recent exposures or clinical presentation indicate that COVID-19 (SARS-CoV-2) is likely and diagnostic tests for other causes of illness are negative. Re-testing should be considered in cases of suspected false negatives. The limit of detection for this assay is 800 copies/mL. This SARS CoV-2 test is a real-time RT-PCR test intended for the qualitative detection of nucleic acid from SARS-CoV-2 in a nasopharyngeal swab specimen collected from individuals suspected of COVID-19 by their healthcare provider. This test has not been Food and Drug Administration (FDA) cleared or approved. This is a modified version of an approved Emergency Use Authorization (EUA) and is in the process of review by the FDA. Once authorized by the FDA, the issued EUA will be effective until the declaration that circumstances exist justifying the authorization of the emergency use of in vitro diagnostic tests for detection and/or diagnosis of COVID-19 is terminated under Section 564(b)(2) of the Act or the EUA is revoked under Section 564(g) of the Act. Fact Sheet for Healthcare Providers:https://www.Genius/sites/default/f delvis/product/documents/F act_Sheet_HC_Providers_L pss_GYHP-NhE-1.pdf Fact Sheet for Healthcare Patients:https://www.Paradine/sites/default/fi les/product/documents/Fa ct_Sheet_Patients_Lyra_S ARS-CoV-2.pdf Performing Laboratory:[facility] [place] [address] [facility]2022-05-05 14:39:14 Test Item Value Reference Range Interpretation Comments SARS-COV2/RT-PCR Negative Not Detected, (test code = Negative, See 28903-0) external report for linked test SARS-COV-2 [facility] (test code = 97611-6) MITESH (test code = Negative result for this MITESH) test determines that SARS-CoV-2 RNA was not present in the specimen above the Limit of Detection (LOD). However, Negative results do not preclude SARS-CoV-2 infection and should not be used as the sole basis for treatment or patient management decisions. Negative results must be combined with clinical observations, patient history, and epidemiological information. A false negative result may occur if a specimen is improperly collected, transported or handled. A false negative result should be considered if patient's recent exposures or clinical presentation indicate that COVID-19 (SARS-CoV-2) is likely and diagnostic tests for other causes of illness are negative. Re-testing should be considered in cases of suspected false negatives. The limit of detection for this assay is 800 copies/mL. This SARS CoV-2 test is a real-time RT-PCR test intended for the qualitative detection of nucleic acid from SARS-CoV-2 in a nasopharyngeal swab specimen collected from individuals suspected of COVID-19 by their healthcare provider. This test has not been Food and Drug Administration (FDA) cleared or approved. This is a modified version of an approved Emergency Use Authorization (EUA) and is in the process of review by the FDA. Once authorized by the FDA, the issued EUA will be effective until the declaration that circumstances exist justifying the authorization of the emergency use of in vitro diagnostic tests for detection and/or diagnosis of COVID-19 is terminated under Section 564(b)(2) of the Act or the EUA is revoked under Section 564(g) of the Act. Fact Sheet for Healthcare Providers:https://www.Genius/sites/default/f delvis/product/documents/F act_Sheet_HC_Providers_L djn_LUOO-EoH-1.pdf Fact Sheet for Healthcare Patients:https://www.Paradine/sites/default/fi les/product/documents/Fa ct_Sheet_Patients_Lyra_S ARS-CoV-2.pdf Performing Laboratory:[facility] [place] [address] [facility]As[facility]omatic ONLY[facility]2022-05-05 14:39:14 Test Item Value Reference Range Interpretation Comments SARS-COV2/RT-PCR Negative Not Detected, (test code = Negative, See 17412-1) external report for linked test SARS-COV-2 [facility] (test code = 83848-8) MITESH (test code = Negative result for this MITESH) test determines that SARS-CoV-2 RNA was not present in the specimen above the Limit of Detection (LOD). However, Negative results do not preclude SARS-CoV-2 infection and should not be used as the sole basis for treatment or patient management decisions. Negative results must be combined with clinical observations, patient history, and epidemiological information. A false negative result may occur if a specimen is improperly collected, transported or handled. A false negative result should be considered if patient's recent exposures or clinical presentation indicate that COVID-19 (SARS-CoV-2) is likely and diagnostic tests for other causes of illness are negative. Re-testing should be considered in cases of suspected false negatives. The limit of detection for this assay is 800 copies/mL. This SARS CoV-2 test is a real-time RT-PCR test intended for the qualitative detection of nucleic acid from SARS-CoV-2 in a nasopharyngeal swab specimen collected from individuals suspected of COVID-19 by their healthcare provider. This test has not been Food and Drug Administration (FDA) cleared or approved. This is a modified version of an approved Emergency Use Authorization (EUA) and is in the process of review by the FDA. Once authorized by the FDA, the issued EUA will be effective until the declaration that circumstances exist justifying the authorization of the emergency use of in vitro diagnostic tests for detection and/or diagnosis of COVID-19 is terminated under Section 564(b)(2) of the Act or the EUA is revoked under Section 564(g) of the Act. Fact Sheet for Healthcare Providers:https://www.Genius/sites/default/f delvis/product/documents/F act_Sheet_HC_Providers_L xjb_AMFA-KhJ-4.pdf Fact Sheet for Healthcare Patients:https://www.Paradine/sites/default/fi les/product/documents/Fa ct_Sheet_Patients_Lyra_S ARS-CoV-2.pdf Performing Laboratory:[facility] [facility].[place], [place] [address] [place], [place] [address]ARS-CoV2/RT-PCR (Asymptomatic ONLY)2022-05-05 14:39:14 Test Item Value Reference Range Interpretation Comments SARS-COV2/RT-PCR Negative Not Detected, (test code = Negative, See 59035-1) external report for linked test SARS-COV-2 [facility] (test code = 46052-6) MITESH (test code = Negative result for this MITESH) test determines that SARS-CoV-2 RNA was not present in the specimen above the Limit of Detection (LOD). However, Negative results do not preclude SARS-CoV-2 infection and should not be used as the sole basis for treatment or patient management decisions. Negative results must be combined with clinical observations, patient history, and epidemiological information. A false negative result may occur if a specimen is improperly collected, transported or handled. A false negative result should be considered if patient's recent exposures or clinical presentation indicate that COVID-19 (SARS-CoV-2) is likely and diagnostic tests for other causes of illness are negative. Re-testing should be considered in cases of suspected false negatives. The limit of detection for this assay is 800 copies/mL. This SARS CoV-2 test is a real-time RT-PCR test intended for the qualitative detection of nucleic acid from SARS-CoV-2 in a nasopharyngeal swab specimen collected from individuals suspected of COVID-19 by their healthcare provider. This test has not been Food and Drug Administration (FDA) cleared or approved. This is a modified version of an approved Emergency Use Authorization (EUA) and is in the process of review by the FDA. Once authorized by the FDA, the issued EUA will be effective until the declaration that circumstances exist justifying the authorization of the emergency use of in vitro diagnostic tests for detection and/or diagnosis of COVID-19 is terminated under Section 564(b)(2) of the Act or the EUA is revoked under Section 564(g) of the Act. Fact Sheet for Healthcare Providers:https://www.Genius/sites/default/f delvis/product/documents/F act_Sheet_HC_Providers_L tqu_KCRJ-XbU-8.pdf Fact Sheet for Healthcare Patients:https://www.Paradine/sites/default/fi les/product/documents/Fa ct_Sheet_Patients_Lyra_S ARS-CoV-2.pdf Performing Laboratory:[facility]/RT-PCR (Asymptomatic ONLY)2022-05-05 14:39:14 Test Item Value Reference Range Interpretation Comments SARS-COV2/RT-PCR Negative Not Detected, (test code = Negative, See 70583-4) external report for linked test SARS-COV-2 [facility] (test code = 91670-8) MITESH (test code = Negative result for this MITESH) test determines that SARS-CoV-2 RNA was not present in the specimen above the Limit of Detection (LOD). However, Negative results do not preclude SARS-CoV-2 infection and should not be used as the sole basis for treatment or patient management decisions. Negative results must be combined with clinical observations, patient history, and epidemiological information. A false negative result may occur if a specimen is improperly collected, transported or handled. A false negative result should be considered if patient's recent exposures or clinical presentation indicate that COVID-19 (SARS-CoV-2) is likely and diagnostic tests for other causes of illness are negative. Re-testing should be considered in cases of suspected false negatives. The limit of detection for this assay is 800 copies/mL. This SARS CoV-2 test is a real-time RT-PCR test intended for the qualitative detection of nucleic acid from SARS-CoV-2 in a nasopharyngeal swab specimen collected from individuals suspected of COVID-19 by their healthcare provider. This test has not been Food and Drug Administration (FDA) cleared or approved. This is a modified version of an approved Emergency Use Authorization (EUA) and is in the process of review by the FDA. Once authorized by the FDA, the issued EUA will be effective until the declaration that circumstances exist justifying the authorization of the emergency use of in vitro diagnostic tests for detection and/or diagnosis of COVID-19 is terminated under Section 564(b)(2) of the Act or the EUA is revoked under Section 564(g) of the Act. Fact Sheet for Healthcare Providers:https://www.Genius/sites/default/f delvis/product/documents/F act_Sheet_HC_Providers_L dpu_JPAO-XlQ-9.pdf Fact Sheet for Healthcare Patients:https://www.Paradine/sites/default/fi les/product/documents/Fa ct_Sheet_Patients_Lyra_S ARS-CoV-2.pdf Performing Laboratory:[facility] [place] [address] [facility]2022-05-05 14:39:14 Test Item Value Reference Range Interpretation Comments SARS-COV2/RT-PCR Negative Not Detected, (test code = Negative, See 45745-1) external report for linked test SARS-COV-2 [facility] (test code = 02144-1) MITESH (test code = Negative result for this MITESH) test determines that SARS-CoV-2 RNA was not present in the specimen above the Limit of Detection (LOD). However, Negative results do not preclude SARS-CoV-2 infection and should not be used as the sole basis for treatment or patient management decisions. Negative results must be combined with clinical observations, patient history, and epidemiological information. A false negative result may occur if a specimen is improperly collected, transported or handled. A false negative result should be considered if patient's recent exposures or clinical presentation indicate that COVID-19 (SARS-CoV-2) is likely and diagnostic tests for other causes of illness are negative. Re-testing should be considered in cases of suspected false negatives. The limit of detection for this assay is 800 copies/mL. This SARS CoV-2 test is a real-time RT-PCR test intended for the qualitative detection of nucleic acid from SARS-CoV-2 in a nasopharyngeal swab specimen collected from individuals suspected of COVID-19 by their healthcare provider. This test has not been Food and Drug Administration (FDA) cleared or approved. This is a modified version of an approved Emergency Use Authorization (EUA) and is in the process of review by the FDA. Once authorized by the FDA, the issued EUA will be effective until the declaration that circumstances exist justifying the authorization of the emergency use of in vitro diagnostic tests for detection and/or diagnosis of COVID-19 is terminated under Section 564(b)(2) of the Act or the EUA is revoked under Section 564(g) of the Act. Fact Sheet for Healthcare Providers:https://www.Genius/sites/default/f delvis/product/documents/F act_Sheet_HC_Providers_L xjv_IBFS-VmJ-8.pdf Fact Sheet for Healthcare Patients:https://www.Flexcom.[employer]/sites/default/fi les/product/documents/Fa ct_Sheet_Patients_Lyra_S ARS-CoV-2.pdf Performing Laboratory:[facility] [place] [address] [facility]2022-05-05 14:39:14 Test Item Value Reference Range Interpretation Comments SARS-COV2/RT-PCR Negative Not Detected, (test code = Negative, See 42688-5) external report for linked test SARS-COV-2 [facility] (test code = 00041-4) MITESH (test code = Negative result for this MITESH) test determines that SARS-CoV-2 RNA was not present in the specimen above the Limit of Detection (LOD). However, Negative results do not preclude SARS-CoV-2 infection and should not be used as the sole basis for treatment or patient management decisions. Negative results must be combined with clinical observations, patient history, and epidemiological information. A false negative result may occur if a specimen is improperly collected, transported or handled. A false negative result should be considered if patient's recent exposures or clinical presentation indicate that COVID-19 (SARS-CoV-2) is likely and diagnostic tests for other causes of illness are negative. Re-testing should be considered in cases of suspected false negatives. The limit of detection for this assay is 800 copies/mL. This SARS CoV-2 test is a real-time RT-PCR test intended for the qualitative detection of nucleic acid from SARS-CoV-2 in a nasopharyngeal swab specimen collected from individuals suspected of COVID-19 by their healthcare provider. This test has not been Food and Drug Administration (FDA) cleared or approved. This is a modified version of an approved Emergency Use Authorization (EUA) and is in the process of review by the FDA. Once authorized by the FDA, the issued EUA will be effective until the declaration that circumstances exist justifying the authorization of the emergency use of in vitro diagnostic tests for detection and/or diagnosis of COVID-19 is terminated under Section 564(b)(2) of the Act or the EUA is revoked under Section 564(g) of the Act. Fact Sheet for Healthcare Providers:https://www.Genius/sites/default/f delvis/product/documents/F act_Sheet_HC_Providers_L gxw_PIBA-IhK-0.pdf Fact Sheet for Healthcare Patients:https://www.[employer]com.[employer]/sites/default/fi les/product/documents/Fa ct_Sheet_Patients_Lyra_S ARS-CoV-2.pdf Performing Laboratory:[facility] [place] [address] [facility]omatic ONLY[facility]2022-05-05 14:39:14 Test Item Value Reference Range Interpretation Comments SARS-COV2/RT-PCR Negative Not Detected, (test code = Negative, See 91355-8) external report for linked test SARS-COV-2 [facility] (test code = 99383-6) MITESH (test code = Negative result for this MITESH) test determines that SARS-CoV-2 RNA was not present in the specimen above the Limit of Detection (LOD). However, Negative results do not preclude SARS-CoV-2 infection and should not be used as the sole basis for treatment or patient management decisions. Negative results must be combined with clinical observations, patient history, and epidemiological information. A false negative result may occur if a specimen is improperly collected, transported or handled. A false negative result should be considered if patient's recent exposures or clinical presentation indicate that COVID-19 (SARS-CoV-2) is likely and diagnostic tests for other causes of illness are negative. Re-testing should be considered in cases of suspected false negatives. The limit of detection for this assay is 800 copies/mL. This SARS CoV-2 test is a real-time RT-PCR test intended for the qualitative detection of nucleic acid from SARS-CoV-2 in a nasopharyngeal swab specimen collected from individuals suspected of COVID-19 by their healthcare provider. This test has not been Food and Drug Administration (FDA) cleared or approved. This is a modified version of an approved Emergency Use Authorization (EUA) and is in the process of review by the FDA. Once authorized by the FDA, the issued EUA will be effective until the declaration that circumstances exist justifying the authorization of the emergency use of in vitro diagnostic tests for detection and/or diagnosis of COVID-19 is terminated under Section 564(b)(2) of the Act or the EUA is revoked under Section 564(g) of the Act. Fact Sheet for Healthcare Providers:https://www.Amitree idel.com/sites/default/f delvis/product/documents/F act_Sheet_HC_Providers_L dvi_KKZG-YpA-0.pdf Fact Sheet for Healthcare Patients:https://www.lily del.com/sites/default/fi les/product/documents/Fa ct_Sheet_Patients_Lyra_S ARS-CoV-2.pdf Performing Laboratory:[facility] [place] [address] [facility]omatic ONLY[facility]2022-05-05 14:39:14 Test Item Value Reference Range Interpretation Comments SARS-COV2/RT-PCR Negative Not Detected, (test code = Negative, See 70684-0) external report for linked test SARS-COV-2 [facility] (test code = 78607-8) MITESH (test code = Negative result for this MITESH) test determines that SARS-CoV-2 RNA was not present in the specimen above the Limit of Detection (LOD). However, Negative results do not preclude SARS-CoV-2 infection and should not be used as the sole basis for treatment or patient management decisions. Negative results must be combined with clinical observations, patient history, and epidemiological information. A false negative result may occur if a specimen is improperly collected, transported or handled. A false negative result should be considered if patient's recent exposures or clinical presentation indicate that COVID-19 (SARS-CoV-2) is likely and diagnostic tests for other causes of illness are negative. Re-testing should be considered in cases of suspected false negatives. The limit of detection for this assay is 800 copies/mL. This SARS CoV-2 test is a real-time RT-PCR test intended for the qualitative detection of nucleic acid from SARS-CoV-2 in a nasopharyngeal swab specimen collected from individuals suspected of COVID-19 by their healthcare provider. This test has not been Food and Drug Administration (FDA) cleared or approved. This is a modified version of an approved Emergency Use Authorization (EUA) and is in the process of review by the FDA. Once authorized by the FDA, the issued EUA will be effective until the declaration that circumstances exist justifying the authorization of the emergency use of in vitro diagnostic tests for detection and/or diagnosis of COVID-19 is terminated under Section 564(b)(2) of the Act or the EUA is revoked under Section 564(g) of the Act. Fact Sheet for Healthcare Providers:https://www.A[employer]ree [employer]/sites/default/f delvis/product/documents/F act_Sheet_HC_Providers_L jmh_NNEP-LqZ-7.pdf Fact Sheet for Healthcare Patients:https://www.[employer]com.[employer]/sites/default/fi les/product/documents/Fa ct_Sheet_Patients_Lyra_S ARS-CoV-2.pdf Performing Laboratory:[address] [place] [address] [facility])2022-05-05 14:39:14 Test Item Value Reference Range Interpretation Comments SARS-COV2/RT-PCR (test Negative Not Detected, Negative, code = 5361815) See external report for linked test SARS-COV-2 PERFORMING LAB [facility] (test code = 2755122) Negative result for this test determines that SARS-CoV-2 RNA was not present in the specimen above the Limit of Detection (LOD). However, Negative results do not preclude SARS-CoV-2 infection and should not be used as the sole basis for treatment or patient management decisions. Negative results must be combined with clinical observations, patient history, and epidemiological information. A false negative result may occur if a specimen is improperly collected, transported or handled. A false negative result should be considered if patient's recent exposures or clinical presentation indicate that COVID-19 (SARS-CoV-2) is likely and diagnostic tests for other causes of illness are negative. Re-testing should be considered in cases of suspected false negatives.The limit of detection for this assay is 800 copies/mL.This SARS CoV-2 test is a real-time RT-PCR test intended for the qualitative detection of nucleic acid from SARS-CoV-2 in a nasopharyngeal swab specimen collected from individuals suspected of COVID-19 by their healthcare provider.This test has not been Food and Drug Administration (FDA) cleared or approved. This is a modified version of an approved Emergency Use Authorization (EUA) and is in the process of review by the FDA. Once authorized by the FDA, the issued EUA will be effective until the declaration that circumstances exist justifying the authorization of the emergency use of in vitro diagnostic tests for detection and/or diagnosis of COVID-19 is terminated under Section 564(b)(2) of the Act or the EUA is revoked under Section 564(g) of the Act.Fact Sheet for Healthcare Pro viders:https://www.[employer]/sites/default/files/product/documents/Fact_Sheet_H Q_Wnrhuzlnn_Fhmi_IQLF-CcE-4.pdfFact Sheet for Healthcare Patients:https://www.[employer]/sites/default/files/product/docum ents/Tuby_Natyk_Njvisdwd_Hrlz_MVPW-DcZ-4.pdfPerforming Laboratory:[facility], [place] [address]EAC, SPINE, LUMBAR, COMPLETE, W/ [id number] 13:31:00Reason for exam:->Instability [facility] : 1960 Sex: FFINAL REPORT CLINICAL HISTORY: Instability TECHNIQUE: 3 views of the lumbarspine. COMPARISON: None FINDINGS: There is maintenance of the lumbar lordosis and alignment. Mild chronic appearing compression deformity of the L5 vertebral body. Mild to moderate spondylosis and facet arthropathy are present within the spine. IMPRESSION: 1.Degenerative changes within the spine, as de tailed above, without acute fracture or malalignment identified.2.No translation identified on flexion or extension views.3. Mild chronic appearing compression deformity of the L5 vertebral body. Signed: [facility] Verified Date/Time: 05/05/2022 13:31:41 Reading Location: [facility] Reading Room -GLUCOSE [id number] 12:33:38 Test Item Value Reference Range Interpretation Comments POC-GLUCOSE METER 479 mg/dL 70-110 HH : Notified RN/MD: (ELIDA) (test code = TESTED AT [facility] 6720 1538) [facility], [address]: Culture Manager/Techni vic ID = [id number] for Arabella hnson, Triwanda POCT-GLUCOSE [id number] 09:40:56 Test Item Value Reference Range Interpretation Comments POC-GLUCOSE METER 388 mg/dL 70-110 H : TESTED A T [facility] 6720 (JACKIE) (test code = [facility], 1538) [address]: Culture Manager/Techni vic ID = [id number] for Maiy Morton BASIC METABOLIC [id number] 08:57:22 Test Item Value Reference Range Interpretation Comments SODIUM (BEAKER) 131 meq/L 136-145 L (test code = 381) POTASSIUM 4.7 meq/L 3.5-5.1 (BEAKER) (test code = 379) CHLORIDE (BEAKER) 100 meq/L 98-107 (test code = 382) CO2 (BEAKER) 23 meq/L 22-29 (test code = 355) BLOOD UREA 22 mg/dL 7-21 H NITROGEN (BEAKER) (test code = 354) CREATININE 0.94 mg/dL 0.57-1.25 (BEAKER) (test code = 358) GLUCOSE RANDOM 500 mg/dL 70-105 HH ([facility]) (test code = 652) CALCIUM (BEAKER) 9.5 mg/dL 8.4-10.2 (test code = 697) EGFR (BEAKER) 69 Interpretatio n of eGFR (test code = mL/min/1.73 values Stage D escription 1092) sq m Result G1 Gayle l or high >=90 G2 Mildly decreased 60-89 G3a Mildl y to moderately 45-5 9 G3b Moderately to s everely 30-44 G4 Severl y decreased 15-29 G5 Kidney failure <15Reported eGF R is based on the CKD-EPI 1 equation that d oes not use a race coefficientEsti mated GFR is not as accur ate as Creatinine Muriel cortez in predicting glom erular filtration rate . Estimated GFR is not appl icable for dialysis patien ts Culture Manager ID - ROHAN MPOCT-GLUCOSE [id number] 08:23:59 Test Item Value Reference Range Interpretation Comments POC-GLUCOSE METER 464 mg/dL 70-110 HH : Notified RN/MD: (ELIDA) (test code = TESTED AT [facility] 6720 1537) [facility], [address]: Culture Manager/Techni vic ID = [id number] for Brooklyn Long PROTHROMBIN [id number] 06:30:41 Test Item Value Reference Range Interpretation Comments PROTIME (BEAKER) 13.8 seconds 11.9-14.2 (test code = 759) INR (BEAKER) (test 1.08 See_Comment [Automat ed message] code = 370) The system EventBoard generated this result transmitted ref erence range: <=5.90. The reference range was not used to int erpret this result as normal/abnormal . RECOMMENDED COUMADIN/WARFARIN INR THERAPY RANGESSTANDARD DOSE: 2.0 - 3.0 Includes: PROPHYLAXIS for venous thrombosis, systemic embolization; TREATMENT for venous thrombosis and/or pulmonary embolus.HIGH RISK: Target INR is 2.5-3.5 for patients with mechanical heart valves.CBC W/PLT COUNT & AUTO [id number] 06:28:12 Test Item Value Reference Range Interpretation Comments WHITE BLOOD CELL COUNT (BEAKER) 12.5 K/ L 3.5-10.5 H (test code = 775) RED BLOOD CELL COUNT (BEAKER) 4.22 M/ L 3.93-5.22 (test code = 761) HEMOGLOBIN (BEAKER) (test code = 12.5 GM/DL 11.2-15.7 410) HEMATOCRIT (BEAKER) (test code = 36.4 % 34.1-44.9 411) MEAN CORPUSCULAR VOLUME (BEAKER) 86.3 fL 79.4-94.8 (test code = 753) MEAN CORPUSCULAR HEMOGLOBIN 29.6 pg 25.6-32.2 (BEAKER) (test code = 751) MEAN CORPUSCULAR HEMOGLOBIN CONC 34.3 GM/DL 32.2-35.5 (BEAKER) (test code = 752) RED CELL DISTRIBUTION WIDTH 11.8 % 11.7-14.4 (BEAKER) (test code = 412) PLATELET COUNT (BEAKER) (test 202 K/CU MM 150-450 code = 756) MEAN PLATELET VOLUME (BEAKER) 11.2 fL 9.4-12.3 (test code = 754) NUCLEATED RED BLOOD CELLS 0 /100 WBC 0-0 (BEAKER) (test code = 413) NEUTROPHILS RELATIVE PERCENT 92 % (BEAKER) (test code = 429) LYMPHOCYTES RELATIVE PERCENT 7 % (BEAKER) (test code = 430) MONOCYTES RELATIVE PERCENT 1 % (BEAKER) (test code = 431) EOSINOPHILS RELATIVE PERCENT 0 % (BEAKER) (test code = 432) BASOPHILS RELATIVE PERCENT 0 % (BEAKER) (test code = 437) NEUTROPHILS ABSOLUTE COUNT 11.50 K/ L 1.56-6.13 H (BEAKER) (test code = 670) LYMPHOCYTES ABSOLUTE COUNT 0.86 K/ L 1.18-3.74 L (BEAKER) (test code = 414) MONOCYTES ABSOLUTE COUNT (BEAKER) 0.07 K/ L 0.24-0.36 L (test code = 415) EOSINOPHILS ABSOLUTE COUNT 0.00 K/ L 0.04-0.36 L (BEAKER) (test code = 416) BASOPHILS ABSOLUTE COUNT (BEAKER) 0.03 K/ L 0.01-0.08 (test code = 417) IMMATURE GRANULOCYTES-RELATIVE 0 % 0-1 PERCENT (BEAKER) (test code = 2801) POCT-GLUCOSE [id number] 01:17:57 Test Item Value Reference Range Interpretation Comments POC-GLUCOSE METER 320 mg/dL 70-110 H : TESTED A T [facility] 6720 (BEAKER) (test code = [facility], 1538) [address]: Culture Manager/Techni vic ID = [id number] for KHOI SIERRANICOLELyndsay HEMOGLOBIN [id number] 16:16:51 Test Item Value Reference Range Interpretation Comments HEMOGLOBIN A1c (test 12.4 % 4.2-5.6 H AMERIC AN DIABETES code = 40293) ASSOCIATION IDELINES FOR HGB A1C: PREDIABETES/INC REASED RISK . [...] ALTERN ATE TESTING OR LABORATORY C ONSULTATION. CBC W/AUTO DIFF WITH [id number] 04:05:31 Test Item Value Reference Range Interpretation [...] RBCS 0.00 K/UL 0.00-0.11 (test code = 96700) [id number] 03:52:49 Test Item Value Reference Range Interpretation Comments RPR RESULT (test code = NON-REACTIVE NON-REACTIVE 3501) RPR TITER (test code = 3500) NOT INDIC. TITER NOT INDIC. VITAMIN [id number] 03:35:15 Test Item Value Reference Range Interpretation Comments VITAMIN B-12 (test >2000 PG/ML 200-950 H UNLESS O THERWISE code = 2840) INDICATED, ALL TESTING PERFORMED [facility] PATHOLOGY [facility] [employer] [address] [place] [address] 4 LABORATORY DIRE CTOR: LETICIA SALGADO M.D. CLIA NUMBER [id number] [place] [id number] CBC W/AUTO [id number] 00:00:00 Test Item Value Reference Range Interpretation Comments WBC (test code = 1001) 8.8 K/UL RBC (test code = 1002) 4.36 M/UL HEMOGLOBIN (test code = 1003) 13.1 G/DL HEMATOCRIT (test code = 1004) 37.9 % MCV (test code = 1005) 86.9 fL MCH (test code = 1006) 30.0 PG MCHC (test code = 1007) 34.6 G/DL RDW (test code = 1038) 11.6 % NEUTROPHILS (test code = 1008) 64.7 % LYMPHOCYTES (test code = 1010) 25.7 % MONOCYTES (test code = 1011) 6.4 % EOSINOPHILS (test code = 1012) 2.3 % BASOPHILS (test code = 1013) 0.6 % IMMATURE GRANULOCYTES (test 0.3 % code = 1036) NUCLEATED RBCS (test code = 0.0 /100WBC'S 1065) PLATELET COUNT (test code = 234 K/UL 1015) ABSOLUTE NEUTROPHILS (test code 5.70 K/UL = 1066) ABSOLUTE LYMPHOCYTES (test code 2.26 K/UL = 1067) ABSOLUTE MONOCYTES (test code = 0.56 K/UL 1068) ABSOLUTE EOSINOPHILS (test code 0.20 K/UL = 1040) ABSOLUTE BASOPHILS (test code = 0.05 K/UL 1069) ABS IMMATURE GRANULOCYTES (test 0.03 K/UL code = 1020) ABS NUCLEATED RBCS (test code = 0.00 K/UL 19575) CBC W/AUTO [id number] 00:00:00 Test Item Value Reference Range Interpretation Comments WBC (test code = 1001) 8.8 K/UL RBC (test code = 1002) 4.36 M/UL HEMOGLOBIN (test code = 1003) 13.1 G/DL HEMATOCRIT (test code = 1004) 37.9 % MCV (test code = 1005) 86.9 fL MCH (test code = 1006) 30.0 PG MCHC (test code = 1007) 34.6 G/DL RDW (test code = 1038) 11.6 % NEUTROPHILS (test code = 1008) 64.7 % LYMPHOCYTES (test code = 1010) 25.7 % MONOCYTES (test code = 1011) 6.4 % EOSINOPHILS (test code = 1012) 2.3 % BASOPHILS (test code = 1013) 0.6 % IMMATURE GRANULOCYTES (test 0.3 % code = 1036) NUCLEATED RBCS (test code = 0.0 /100WBC'S 1065) PLATELET COUNT (test code = 234 K/UL 1015) ABSOLUTE NEUTROPHILS (test code 5.70 K/UL = 1066) ABSOLUTE LYMPHOCYTES (test code 2.26 K/UL = 1067) ABSOLUTE MONOCYTES (test code = 0.56 K/UL 1068) ABSOLUTE EOSINOPHILS (test code 0.20 K/UL = 1040) ABSOLUTE BASOPHILS (test code = 0.05 K/UL 1069) ABS IMMATURE GRANULOCYTES (test 0.03 K/UL code = 1020) ABS NUCLEATED RBCS (test code = 0.00 K/UL 18423) CBC W/AUTO [id number] 00:00:00 Test Item Value Reference Range Interpretation Comments WBC (test code = 1001) 8.8 K/UL RBC (test code = 1002) 4.36 M/UL HEMOGLOBIN (test code = 1003) 13.1 G/DL HEMATOCRIT (test code = 1004) 37.9 % MCV (test code = 1005) 86.9 fL MCH (test code = 1006) 30.0 PG MCHC (test code = 1007) 34.6 G/DL RDW (test code = 1038) 11.6 % NEUTROPHILS (test code = 1008) 64.7 % LYMPHOCYTES (test code = 1010) 25.7 % MONOCYTES (test code = 1011) 6.4 % EOSINOPHILS (test code = 1012) 2.3 % BASOPHILS (test code = 1013) 0.6 % IMMATURE GRANULOCYTES (test 0.3 % code = 1036) NUCLEATED RBCS (test code = 0.0 /100WBC'S 1065) PLATELET COUNT (test code = 234 K/UL 1015) ABSOLUTE NEUTROPHILS (test code 5.70 K/UL = 1066) ABSOLUTE LYMPHOCYTES (test code 2.26 K/UL = 1067) ABSOLUTE MONOCYTES (test code = 0.56 K/UL 1068) ABSOLUTE EOSINOPHILS (test code 0.20 K/UL = 1040) ABSOLUTE BASOPHILS (test code = 0.05 K/UL 1069) ABS IMMATURE GRANULOCYTES (test 0.03 K/UL code = 1020) ABS NUCLEATED RBCS (test code = 0.00 K/UL 61094) HEMOGLOBIN [id number] 00:00:00 Test Item Value Reference Range Interpretation Comments HEMOGLOBIN A1c (test code = 51569) 12.4 % HEMOGLOBIN [id number] 00:00:00 Test Item Value Reference Range Interpretation Comments HEMOGLOBIN A1c (test code = 36519) 12.4 % HEMOGLOBIN [id number] 00:00:00 Test Item Value Reference Range Interpretation Comments HEMOGLOBIN A1c (test code = 49093) 12.4 % [id number] 00:00:00 Test Item Value Reference Range Interpretation Comments RPR RESULT (test code = NON-REACTIVE 3501) RPR TITER (test code = 3500) NOT INDIC. TITER [id number] 00:00:00 Test Item Value Reference Range Interpretation Comments RPR RESULT (test code = NON-REACTIVE 3501) RPR TITER (test code = 3500) NOT INDIC. TITER [id number] 00:00:00 Test Item Value Reference Range Interpretation Comments RPR RESULT (test code = NON-REACTIVE 3501) RPR TITER (test code = 3500) NOT INDIC. TITER VITAMIN [id number] 00:00:00 Test Item Value Reference Range Interpretation Comments VITAMIN B-12 (test code = 2840) >2000 PG/ML VITAMIN [id number] 00:00:00 Test Item Value Reference Range Interpretation Comments VITAMIN B-12 (test code = 2840) >2000 PG/ML VITAMIN [id number] 00:00:00 Test Item Value Reference Range Interpretation Comments VITAMIN B-12 (test code = 2840) >2000 PG/ML CBC W/AUTO [id number] 00:00:00 Test Item Value Reference Range Interpretation Comments WBC (test code = 1001) 8.8 K/UL RBC (test code = 1002) 4.36 M/UL HEMOGLOBIN (test code = 1003) 13.1 G/DL HEMATOCRIT (test code = 1004) 37.9 % MCV (test code = 1005) 86.9 fL MCH (test code = 1006) 30.0 PG MCHC (test code = 1007) 34.6 G/DL RDW (test code = 1038) 11.6 % NEUTROPHILS (test code = 1008) 64.7 % LYMPHOCYTES (test code = 1010) 25.7 % MONOCYTES (test code = 1011) 6.4 % EOSINOPHILS (test code = 1012) 2.3 % BASOPHILS (test code = 1013) 0.6 % IMMATURE GRANULOCYTES (test 0.3 % code = 1036) NUCLEATED RBCS (test code = 0.0 /100WBC'S 1065) PLATELET COUNT (test code = 234 K/UL 1015) ABSOLUTE NEUTROPHILS (test code 5.70 K/UL = 1066) ABSOLUTE LYMPHOCYTES (test code 2.26 K/UL = 1067) ABSOLUTE MONOCYTES (test code = 0.56 K/UL 1068) ABSOLUTE EOSINOPHILS (test code 0.20 K/UL = 1040) ABSOLUTE BASOPHILS (test code = 0.05 K/UL 1069) ABS IMMATURE GRANULOCYTES (test 0.03 K/UL code = 1020) ABS NUCLEATED RBCS (test code = 0.00 K/UL 65845) CBC W/AUTO [id number] 00:00:00 Test Item Value Reference Range Interpretation Comments WBC (test code = 1001) 8.8 K/UL RBC (test code = 1002) 4.36 M/UL HEMOGLOBIN (test code = 1003) 13.1 G/DL HEMATOCRIT (test code = 1004) 37.9 % MCV (test code = 1005) 86.9 fL MCH (test code = 1006) 30.0 PG MCHC (test code = 1007) 34.6 G/DL RDW (test code = 1038) 11.6 % NEUTROPHILS (test code = 1008) 64.7 % LYMPHOCYTES (test code = 1010) 25.7 % MONOCYTES (test code = 1011) 6.4 % EOSINOPHILS (test code = 1012) 2.3 % BASOPHILS (test code = 1013) 0.6 % IMMATURE GRANULOCYTES (test 0.3 % code = 1036) NUCLEATED RBCS (test code = 0.0 /100WBC'S 1065) PLATELET COUNT (test code = 234 K/UL 1015) ABSOLUTE NEUTROPHILS (test code 5.70 K/UL = 1066) ABSOLUTE LYMPHOCYTES (test code 2.26 K/UL = 1067) ABSOLUTE MONOCYTES (test code = 0.56 K/UL 1068) ABSOLUTE EOSINOPHILS (test code 0.20 K/UL = 1040) ABSOLUTE BASOPHILS (test code = 0.05 K/UL 1069) ABS IMMATURE GRANULOCYTES (test 0.03 K/UL code = 1020) ABS NUCLEATED RBCS (test code = 0.00 K/UL 55342) CBC W/AUTO [id number] 00:00:00 Test Item Value Reference Range Interpretation Comments WBC (test code = 1001) 8.8 K/UL RBC (test code = 1002) 4.36 M/UL HEMOGLOBIN (test code = 1003) 13.1 G/DL HEMATOCRIT (test code = 1004) 37.9 % MCV (test code = 1005) 86.9 fL MCH (test code = 1006) 30.0 PG MCHC (test code = 1007) 34.6 G/DL RDW (test code = 1038) 11.6 % NEUTROPHILS (test code = 1008) 64.7 % LYMPHOCYTES (test code = 1010) 25.7 % MONOCYTES (test code = 1011) 6.4 % EOSINOPHILS (test code = 1012) 2.3 % BASOPHILS (test code = 1013) 0.6 % IMMATURE GRANULOCYTES (test 0.3 % code = 1036) NUCLEATED RBCS (test code = 0.0 /100WBC'S 1065) PLATELET COUNT (test code = 234 K/UL 1015) ABSOLUTE NEUTROPHILS (test code 5.70 K/UL = 1066) ABSOLUTE LYMPHOCYTES (test code 2.26 K/UL = 1067) ABSOLUTE MONOCYTES (test code = 0.56 K/UL 1068) ABSOLUTE EOSINOPHILS (test code 0.20 K/UL = 1040) ABSOLUTE BASOPHILS (test code = 0.05 K/UL 1069) ABS IMMATURE GRANULOCYTES (test 0.03 K/UL code = 1020) ABS NUCLEATED RBCS (test code = 0.00 K/UL 60734) HEMOGLOBIN [id number] 00:00:00 Test Item Value Reference Range Interpretation Comments HEMOGLOBIN A1c (test code = 28122) 12.4 % HEMOGLOBIN [id number] 00:00:00 Test Item Value Reference Range Interpretation Comments HEMOGLOBIN A1c (test code = 00377) 12.4 % HEMOGLOBIN [id number] 00:00:00 Test Item Value Reference Range Interpretation Comments HEMOGLOBIN A1c (test code = 75848) 12.4 % [id number] 00:00:00 Test Item Value Reference Range Interpretation Comments RPR RESULT (test code = NON-REACTIVE 3501) RPR TITER (test code = 3500) NOT INDIC. TITER [id number] 00:00:00 Test Item Value Reference Range Interpretation Comments RPR RESULT (test code = NON-REACTIVE 3501) RPR TITER (test code = 3500) NOT INDIC. TITER [id number] 00:00:00 Test Item Value Reference Range Interpretation Comments RPR RESULT (test code = NON-REACTIVE 3501) RPR TITER (test code = 3500) NOT INDIC. TITER VITAMIN [id number] 00:00:00 Test Item Value Reference Range Interpretation Comments VITAMIN B-12 (test code = 2840) >2000 PG/ML VITAMIN [id number] 00:00:00 Test Item Value Reference Range Interpretation Comments VITAMIN B-12 (test code = 2840) >2000 PG/ML VITAMIN [id number] 00:00:00 Test Item Value Reference Range Interpretation Comments VITAMIN B-12 (test code = 2840) >2000 PG/ML CBC W/AUTO [id number] 00:00:00 Test Item Value Reference Range Interpretation Comments WBC (test code = 1001) 8.8 K/UL RBC (test code = 1002) 4.36 M/UL HEMOGLOBIN (test code = 1003) 13.1 G/DL HEMATOCRIT (test code = 1004) 37.9 % MCV (test code = 1005) 86.9 fL MCH (test code = 1006) 30.0 PG MCHC (test code = 1007) 34.6 G/DL RDW (test code = 1038) 11.6 % NEUTROPHILS (test code = 1008) 64.7 % LYMPHOCYTES (test code = 1010) 25.7 % MONOCYTES (test code = 1011) 6.4 % EOSINOPHILS (test code = 1012) 2.3 % BASOPHILS (test code = 1013) 0.6 % IMMATURE GRANULOCYTES (test 0.3 % code = 1036) NUCLEATED RBCS (test code = 0.0 /100WBC'S 1065) PLATELET COUNT (test code = 234 K/UL 1015) ABSOLUTE NEUTROPHILS (test code 5.70 K/UL = 1066) ABSOLUTE LYMPHOCYTES (test code 2.26 K/UL = 1067) ABSOLUTE MONOCYTES (test code = 0.56 K/UL 1068) ABSOLUTE EOSINOPHILS (test code 0.20 K/UL = 1040) ABSOLUTE BASOPHILS (test code = 0.05 K/UL 1069) ABS IMMATURE GRANULOCYTES (test 0.03 K/UL code = 1020) ABS NUCLEATED RBCS (test code = 0.00 K/UL 80804) CBC W/AUTO [id number] 00:00:00 Test Item Value Reference Range Interpretation Comments WBC (test code = 1001) 8.8 K/UL RBC (test code = 1002) 4.36 M/UL HEMOGLOBIN (test code = 1003) 13.1 G/DL HEMATOCRIT (test code = 1004) 37.9 % MCV (test code = 1005) 86.9 fL MCH (test code = 1006) 30.0 PG MCHC (test code = 1007) 34.6 G/DL RDW (test code = 1038) 11.6 % NEUTROPHILS (test code = 1008) 64.7 % LYMPHOCYTES (test code = 1010) 25.7 % MONOCYTES (test code = 1011) 6.4 % EOSINOPHILS (test code = 1012) 2.3 % BASOPHILS (test code = 1013) 0.6 % IMMATURE GRANULOCYTES (test 0.3 % code = 1036) NUCLEATED RBCS (test code = 0.0 /100WBC'S 1065) PLATELET COUNT (test code = 234 K/UL 1015) ABSOLUTE NEUTROPHILS (test code 5.70 K/UL = 1066) ABSOLUTE LYMPHOCYTES (test code 2.26 K/UL = 1067) ABSOLUTE MONOCYTES (test code = 0.56 K/UL 1068) ABSOLUTE EOSINOPHILS (test code 0.20 K/UL = 1040) ABSOLUTE BASOPHILS (test code = 0.05 K/UL 1069) ABS IMMATURE GRANULOCYTES (test 0.03 K/UL code = 1020) ABS NUCLEATED RBCS (test code = 0.00 K/UL 85637) CBC W/AUTO [id number] 00:00:00 Test Item Value Reference Range Interpretation Comments WBC (test code = 1001) 8.8 K/UL RBC (test code = 1002) 4.36 M/UL HEMOGLOBIN (test code = 1003) 13.1 G/DL HEMATOCRIT (test code = 1004) 37.9 % MCV (test code = 1005) 86.9 fL MCH (test code = 1006) 30.0 PG MCHC (test code = 1007) 34.6 G/DL RDW (test code = 1038) 11.6 % NEUTROPHILS (test code = 1008) 64.7 % LYMPHOCYTES (test code = 1010) 25.7 % MONOCYTES (test code = 1011) 6.4 % EOSINOPHILS (test code = 1012) 2.3 % BASOPHILS (test code = 1013) 0.6 % IMMATURE GRANULOCYTES (test 0.3 % code = 1036) NUCLEATED RBCS (test code = 0.0 /100WBC'S 1065) PLATELET COUNT (test code = 234 K/UL 1015) ABSOLUTE NEUTROPHILS (test code 5.70 K/UL = 1066) ABSOLUTE LYMPHOCYTES (test code 2.26 K/UL = 1067) ABSOLUTE MONOCYTES (test code = 0.56 K/UL 1068) ABSOLUTE EOSINOPHILS (test code 0.20 K/UL = 1040) ABSOLUTE BASOPHILS (test code = 0.05 K/UL 1069) ABS IMMATURE GRANULOCYTES (test 0.03 K/UL code = 1020) ABS NUCLEATED RBCS (test code = 0.00 K/UL 97101) HEMOGLOBIN [id number] 00:00:00 Test Item Value Reference Range Interpretation Comments HEMOGLOBIN A1c (test code = 78111) 12.4 % HEMOGLOBIN [id number] 00:00:00 Test Item Value Reference Range Interpretation Comments HEMOGLOBIN A1c (test code = 15639) 12.4 % HEMOGLOBIN [id number] 00:00:00 Test Item Value Reference Range Interpretation Comments HEMOGLOBIN A1c (test code = 49909) 12.4 % [id number] 00:00:00 Test Item Value Reference Range Interpretation Comments RPR RESULT (test code = NON-REACTIVE 3501) RPR TITER (test code = 3500) NOT INDIC. TITER [id number] 00:00:00 Test Item Value Reference Range Interpretation Comments RPR RESULT (test code = NON-REACTIVE 3501) RPR TITER (test code = 3500) NOT INDIC. TITER [id number] 00:00:00 Test Item Value Reference Range Interpretation Comments RPR RESULT (test code = NON-REACTIVE 3501) RPR TITER (test code = 3500) NOT INDIC. TITER VITAMIN [id number] 00:00:00 Test Item Value Reference Range Interpretation Comments VITAMIN B-12 (test code = 2840) >2000 PG/ML VITAMIN [id number] 00:00:00 Test Item Value Reference Range Interpretation Comments VITAMIN B-12 (test code = 2840) >2000 PG/ML VITAMIN [id number] 00:00:00 Test Item Value Reference Range Interpretation Comments VITAMIN B-12 (test code = 2840) >2000 PG/ML CBC W/AUTO [id number] 00:00:00 Test Item Value Reference Range Interpretation Comments WBC (test code = 1001) 8.8 K/UL RBC (test code = 1002) 4.36 M/UL HEMOGLOBIN (test code = 1003) 13.1 G/DL HEMATOCRIT (test code = 1004) 37.9 % MCV (test code = 1005) 86.9 fL MCH (test code = 1006) 30.0 PG MCHC (test code = 1007) 34.6 G/DL RDW (test code = 1038) 11.6 % NEUTROPHILS (test code = 1008) 64.7 % LYMPHOCYTES (test code = 1010) 25.7 % MONOCYTES (test code = 1011) 6.4 % EOSINOPHILS (test code = 1012) 2.3 % BASOPHILS (test code = 1013) 0.6 % IMMATURE GRANULOCYTES (test 0.3 % code = 1036) NUCLEATED RBCS (test code = 0.0 /100WBC'S 1065) PLATELET COUNT (test code = 234 K/UL 1015) ABSOLUTE NEUTROPHILS (test code 5.70 K/UL = 1066) ABSOLUTE LYMPHOCYTES (test code 2.26 K/UL = 1067) ABSOLUTE MONOCYTES (test code = 0.56 K/UL 1068) ABSOLUTE EOSINOPHILS (test code 0.20 K/UL = 1040) ABSOLUTE BASOPHILS (test code = 0.05 K/UL 1069) ABS IMMATURE GRANULOCYTES (test 0.03 K/UL code = 1020) ABS NUCLEATED RBCS (test code = 0.00 K/UL 46292) CBC W/AUTO [id number] 00:00:00 Test Item Value Reference Range Interpretation Comments WBC (test code = 1001) 8.8 K/UL RBC (test code = 1002) 4.36 M/UL HEMOGLOBIN (test code = 1003) 13.1 G/DL HEMATOCRIT (test code = 1004) 37.9 % MCV (test code = 1005) 86.9 fL MCH (test code = 1006) 30.0 PG MCHC (test code = 1007) 34.6 G/DL RDW (test code = 1038) 11.6 % NEUTROPHILS (test code = 1008) 64.7 % LYMPHOCYTES (test code = 1010) 25.7 % MONOCYTES (test code = 1011) 6.4 % EOSINOPHILS (test code = 1012) 2.3 % BASOPHILS (test code = 1013) 0.6 % IMMATURE GRANULOCYTES (test 0.3 % code = 1036) NUCLEATED RBCS (test code = 0.0 /100WBC'S 1065) PLATELET COUNT (test code = 234 K/UL 1015) ABSOLUTE NEUTROPHILS (test code 5.70 K/UL = 1066) ABSOLUTE LYMPHOCYTES (test code 2.26 K/UL = 1067) ABSOLUTE MONOCYTES (test code = 0.56 K/UL 1068) ABSOLUTE EOSINOPHILS (test code 0.20 K/UL = 1040) ABSOLUTE BASOPHILS (test code = 0.05 K/UL 1069) ABS IMMATURE GRANULOCYTES (test 0.03 K/UL code = 1020) ABS NUCLEATED RBCS (test code = 0.00 K/UL 76437) CBC W/AUTO [id number] 00:00:00 Test Item Value Reference Range Interpretation Comments WBC (test code = 1001) 8.8 K/UL RBC (test code = 1002) 4.36 M/UL HEMOGLOBIN (test code = 1003) 13.1 G/DL HEMATOCRIT (test code = 1004) 37.9 % MCV (test code = 1005) 86.9 fL MCH (test code = 1006) 30.0 PG MCHC (test code = 1007) 34.6 G/DL RDW (test code = 1038) 11.6 % NEUTROPHILS (test code = 1008) 64.7 % LYMPHOCYTES (test code = 1010) 25.7 % MONOCYTES (test code = 1011) 6.4 % EOSINOPHILS (test code = 1012) 2.3 % BASOPHILS (test code = 1013) 0.6 % IMMATURE GRANULOCYTES (test 0.3 % code = 1036) NUCLEATED RBCS (test code = 0.0 /100WBC'S 1065) PLATELET COUNT (test code = 234 K/UL 1015) ABSOLUTE NEUTROPHILS (test code 5.70 K/UL = 1066) ABSOLUTE LYMPHOCYTES (test code 2.26 K/UL = 1067) ABSOLUTE MONOCYTES (test code = 0.56 K/UL 1068) ABSOLUTE EOSINOPHILS (test code 0.20 K/UL = 1040) ABSOLUTE BASOPHILS (test code = 0.05 K/UL 1069) ABS IMMATURE GRANULOCYTES (test 0.03 K/UL code = 1020) ABS NUCLEATED RBCS (test code = 0.00 K/UL 07329) HEMOGLOBIN [id number] 00:00:00 Test Item Value Reference Range Interpretation Comments HEMOGLOBIN A1c (test code = 19568) 12.4 % HEMOGLOBIN [id number] 00:00:00 Test Item Value Reference Range Interpretation Comments HEMOGLOBIN A1c (test code = 80864) 12.4 % HEMOGLOBIN [id number] 00:00:00 Test Item Value Reference Range Interpretation Comments HEMOGLOBIN A1c (test code = 77970) 12.4 % [id number] 00:00:00 Test Item Value Reference Range Interpretation Comments RPR RESULT (test code = NON-REACTIVE 3501) RPR TITER (test code = 3500) NOT INDIC. TITER [id number] 00:00:00 Test Item Value Reference Range Interpretation Comments RPR RESULT (test code = NON-REACTIVE 3501) RPR TITER (test code = 3500) NOT INDIC. TITER [id number] 00:00:00 Test Item Value Reference Range Interpretation Comments RPR RESULT (test code = NON-REACTIVE 3501) RPR TITER (test code = 3500) NOT INDIC. TITER VITAMIN [id number] 00:00:00 Test Item Value Reference Range Interpretation Comments VITAMIN B-12 (test code = 2840) >2000 PG/ML VITAMIN [id number] 00:00:00 Test Item Value Reference Range Interpretation Comments VITAMIN B-12 (test code = 2840) >2000 PG/ML VITAMIN [id number] 00:00:00 Test Item Value Reference Range Interpretation Comments VITAMIN B-12 (test code = 2840) >2000 PG/ML CBC W/AUTO [id number] 00:00:00 Test Item Value Reference Range Interpretation Comments WBC (test code = 1001) 8.8 K/UL RBC (test code = 1002) 4.36 M/UL HEMOGLOBIN (test code = 1003) 13.1 G/DL HEMATOCRIT (test code = 1004) 37.9 % MCV (test code = 1005) 86.9 fL MCH (test code = 1006) 30.0 PG MCHC (test code = 1007) 34.6 G/DL RDW (test code = 1038) 11.6 % NEUTROPHILS (test code = 1008) 64.7 % LYMPHOCYTES (test code = 1010) 25.7 % MONOCYTES (test code = 1011) 6.4 % EOSINOPHILS (test code = 1012) 2.3 % BASOPHILS (test code = 1013) 0.6 % IMMATURE GRANULOCYTES (test 0.3 % code = 1036) NUCLEATED RBCS (test code = 0.0 /100WBC'S 1065) PLATELET COUNT (test code = 234 K/UL 1015) ABSOLUTE NEUTROPHILS (test code 5.70 K/UL = 1066) ABSOLUTE LYMPHOCYTES (test code 2.26 K/UL = 1067) ABSOLUTE MONOCYTES (test code = 0.56 K/UL 1068) ABSOLUTE EOSINOPHILS (test code 0.20 K/UL = 1040) ABSOLUTE BASOPHILS (test code = 0.05 K/UL 1069) ABS IMMATURE GRANULOCYTES (test 0.03 K/UL code = 1020) ABS NUCLEATED RBCS (test code = 0.00 K/UL 80957) CBC W/AUTO [id number] 00:00:00 Test Item Value Reference Range Interpretation Comments WBC (test code = 1001) 8.8 K/UL RBC (test code = 1002) 4.36 M/UL HEMOGLOBIN (test code = 1003) 13.1 G/DL HEMATOCRIT (test code = 1004) 37.9 % MCV (test code = 1005) 86.9 fL MCH (test code = 1006) 30.0 PG MCHC (test code = 1007) 34.6 G/DL RDW (test code = 1038) 11.6 % NEUTROPHILS (test code = 1008) 64.7 % LYMPHOCYTES (test code = 1010) 25.7 % MONOCYTES (test code = 1011) 6.4 % EOSINOPHILS (test code = 1012) 2.3 % BASOPHILS (test code = 1013) 0.6 % IMMATURE GRANULOCYTES (test 0.3 % code = 1036) NUCLEATED RBCS (test code = 0.0 /100WBC'S 1065) PLATELET COUNT (test code = 234 K/UL 1015) ABSOLUTE NEUTROPHILS (test code 5.70 K/UL = 1066) ABSOLUTE LYMPHOCYTES (test code 2.26 K/UL = 1067) ABSOLUTE MONOCYTES (test code = 0.56 K/UL 1068) ABSOLUTE EOSINOPHILS (test code 0.20 K/UL = 1040) ABSOLUTE BASOPHILS (test code = 0.05 K/UL 1069) ABS IMMATURE GRANULOCYTES (test 0.03 K/UL code = 1020) ABS NUCLEATED RBCS (test code = 0.00 K/UL 61146) CBC W/AUTO [id number] 00:00:00 Test Item Value Reference Range Interpretation Comments WBC (test code = 1001) 8.8 K/UL RBC (test code = 1002) 4.36 M/UL HEMOGLOBIN (test code = 1003) 13.1 G/DL HEMATOCRIT (test code = 1004) 37.9 % MCV (test code = 1005) 86.9 fL MCH (test code = 1006) 30.0 PG MCHC (test code = 1007) 34.6 G/DL RDW (test code = 1038) 11.6 % NEUTROPHILS (test code = 1008) 64.7 % LYMPHOCYTES (test code = 1010) 25.7 % MONOCYTES (test code = 1011) 6.4 % EOSINOPHILS (test code = 1012) 2.3 % BASOPHILS (test code = 1013) 0.6 % IMMATURE GRANULOCYTES (test 0.3 % code = 1036) NUCLEATED RBCS (test code = 0.0 /100WBC'S 1065) PLATELET COUNT (test code = 234 K/UL 1015) ABSOLUTE NEUTROPHILS (test code 5.70 K/UL = 1066) ABSOLUTE LYMPHOCYTES (test code 2.26 K/UL = 1067) ABSOLUTE MONOCYTES (test code = 0.56 K/UL 1068) ABSOLUTE EOSINOPHILS (test code 0.20 K/UL = 1040) ABSOLUTE BASOPHILS (test code = 0.05 K/UL 1069) ABS IMMATURE GRANULOCYTES (test 0.03 K/UL code = 1020) ABS NUCLEATED RBCS (test code = 0.00 K/UL 51084) HEMOGLOBIN [id number] 00:00:00 Test Item Value Reference Range Interpretation Comments HEMOGLOBIN A1c (test code = 28785) 12.4 % HEMOGLOBIN [id number] 00:00:00 Test Item Value Reference Range Interpretation Comments HEMOGLOBIN A1c (test code = 70473) 12.4 % HEMOGLOBIN [id number] 00:00:00 Test Item Value Reference Range Interpretation Comments HEMOGLOBIN A1c (test code = 20349) 12.4 % [id number] 00:00:00 Test Item Value Reference Range Interpretation Comments RPR RESULT (test code = NON-REACTIVE 3501) RPR TITER (test code = 3500) NOT INDIC. TITER [id number] 00:00:00 Test Item Value Reference Range Interpretation Comments RPR RESULT (test code = NON-REACTIVE 3501) RPR TITER (test code = 3500) NOT INDIC. TITER [id number] 00:00:00 Test Item Value Reference Range Interpretation Comments RPR RESULT (test code = NON-REACTIVE 3501) RPR TITER (test code = 3500) NOT INDIC. TITER VITAMIN [id number] 00:00:00 Test Item Value Reference Range Interpretation Comments VITAMIN B-12 (test code = 2840) >2000 PG/ML VITAMIN [id number] 00:00:00 Test Item Value Reference Range Interpretation Comments VITAMIN B-12 (test code = 2840) >2000 PG/ML VITAMIN [id number] 00:00:00 Test Item Value Reference Range Interpretation Comments VITAMIN B-12 (test code = 2840) >2000 PG/ML POCT-GLUCOSE [id number] 17:39:03 Test Item Value Reference Range Interpretation Comments POC-GLUCOSE METER 94 mg/dL 70-110 : TESTED A T [facility] [address] (BEAKER) (test code = [address], 1538) [place] [address]: Culture Manager/Techni vic ID = [id number] for Malcom Jasso POCT-GLUCOSE [id number] 11:39:17 Test Item Value Reference Range Interpretation Comments POC-GLUCOSE METER 196 mg/dL 70-110 H : TESTED A T [facility] [address] (BEAKER) (test code [address], = 1538) [place] [address]: Culture Manager/Techni vic ID = [id number] for Malcom Jasso POCT-GLUCOSE [id number] 06:44:27 Test Item Value Reference Range Interpretation Comments POC-GLUCOSE METER 181 mg/dL 70-110 H : TESTED A T [facility] [address] (BEAKER) (test code [facility] [address], = 1538) [place] [address]: Culture Manager/Techni vic ID = [id number] for Ely Lee POCT-GLUCOSE [id number] 19:50:00 Test Item Value Reference Range Interpretation Comments POC-GLUCOSE METER 209 mg/dL 70-110 H : TESTED A T [facility] [address] (BEAKER) (test code [facility] [address], = 1538) [place] [address]: Culture Manager/Techni vic ID = [id number] for Dominique Rojas POCT-GLUCOSE [id number] 16:48:29 Test Item Value Reference Range Interpretation Comments POC-GLUCOSE METER 112 mg/dL 70-110 H : TESTED A T [facility] [address] (BEAKER) (test code [address], = 1538) [place] [address]: Culture Manager/Techni vic ID = [id number] for Tiffanie Ramirez POCT-GLUCOSE [id number] 12:32:44 Test Item Value Reference Range Interpretation Comments POC-GLUCOSE METER 152 mg/dL 70-110 H : TESTED A T [facility] [address] (BEAKER) (test code [facility] [address], = 1538) [place] [address]: Culture Manager/Techni vic ID = [id number] for Tiffanie Ramirez BLOOD [id number] 07:00:50 Test Item Value Reference Range Interpretation Comments CULTURE (BEAKER) (test No growth in 5 days code = 1095) BLOOD [id number] 07:00:49 Test Item Value Reference Range Interpretation Comments CULTURE (BEAKER) (test No growth in 5 days code = 1095) POCT-GLUCOSE [id number] 06:35:32 Test Item Value Reference Range Interpretation Comments POC-GLUCOSE METER 264 mg/dL 70-110 H : TESTED A T [facility] [address] (BEAKER) (test code [address], = 1538) [place] [address]: Culture Manager/Techni vic ID = [id number] for Jose kraft Trayc POCT-GLUCOSE [id number] 20:25:00 Test Item Value Reference Range Interpretation Comments POC-GLUCOSE METER 160 mg/dL 70-110 H : TESTED A T [facility] [address] (BEAKER) (test code [facility] [address], = 1538) [place] [address]: Culture Manager/Techni vic ID = [id number] for Jose kraft, Tracy POCT-GLUCOSE [id number] 17:45:59 Test Item Value Reference Range Interpretation Comments POC-GLUCOSE METER 212 mg/dL 70-110 H : TESTED A T [facility] [address] (BEAKER) (test code [address], = 1538) [place] [address]: Culture Manager/Techni vic ID = [id number] for Amberly underwoodshirleyJustin asher POCT-GLUCOSE [id number] 12:14:45 Test Item Value Reference Range Interpretation Comments POC-GLUCOSE METER 266 mg/dL 70-110 H : TESTED A T [facility] [address] (BEAKER) (test code [facility] [address], = 1538) [place] [address]: Culture Manager/Techni vic ID = [id number] for Kendrick Wagoner POCT-GLUCOSE [id number] 07:17:34 Test Item Value Reference Range Interpretation Comments POC-GLUCOSE METER 285 mg/dL 70-110 H : TESTED A T [facility] [address] (BEAKER) (test code [address], = 1538) [place] [address]: Culture Manager/Techni vic ID = [id number] for Tiffanie houghLisa burgessperez POCT-GLUCOSE [id number] 19:54:25 Test Item Value Reference Range Interpretation Comments POC-GLUCOSE METER 136 mg/dL 70-110 H : TESTED A T [facility] [address] (BEAKER) (test code [facility] [address], = 1538) [place] [address]: Culture Manager/Techni vic ID = [id number] for Sharan Pearl POCT-GLUCOSE [id number] 15:49:11 Test Item Value Reference Range Interpretation Comments POC-GLUCOSE METER 253 mg/dL 70-110 H : TESTED A T [facility] [address] (BEAKER) (test code [facility] [address], = 1538) [place] [address]: Culture Manager/Techni vic ID = [id number] for C guidoo, Toan POCT-GLUCOSE [id number] 11:44:44 Test Item Value Reference Range Interpretation Comments POC-GLUCOSE METER 177 mg/dL 70-110 H : TESTED A T [facility] [address] (BEAKER) (test code [facility] [address] [facility], = 1538) [place] [address]: Culture Manager/Techni vic ID = [id number] for C guidoo, Toan POCT-GLUCOSE [id number] 05:50:52 Test Item Value Reference Range Interpretation Comments POC-GLUCOSE METER 283 mg/dL 70-110 H : TESTED A T [facility] [address] (BEAKER) (test code [facility], = 1538) [place] [address]: Culture Manager/Techni vic ID = [id number] for Geo Bazan [id number] 05:20:35 Test Item Value Reference Range Interpretation Comments PHOSPHORUS (BEAKER) (test code = 3.1 mg/dL 2.5-4.5 604) Culture Manager ID - [id number] METABOLIC [id number] 05:20:34 Test Item Value Reference Range Interpretation [...] 697) EGFR (BEAKER) (test 66 mL/min/1.73 ESTIMA ALEX GFR IS code = 1092) sq m NOT ACCURATE CREATININE CLEARANCE IN PREDICTING GLOMERULAR FILTRATION RATE . ESTIMATED GFR I S NOT APPLICABLE FOR DIALYSIS PATIEN TS. Culture Manager ID - [id number] 05:20:34 Test Item Value Reference Range Interpretation Comments MAGNESIUM (BEAKER) (test code = 1.6 mg/dL 1.5-3.0 627) Culture Manager ID - [id number] W/PLT COUNT & AUTO [id number] 04:42:02 Test Item Value Reference Range Interpretation [...] PERCENT (BEAKER) (test code = 2801) POCT-GLUCOSE [id number] 20:59:18 Test Item Value Reference Range Interpretation Comments POC-GLUCOSE METER 224 mg/dL 70-110 H : TESTED A T [facility] [address] (BEAKER) (test code [address], = 1538) [place] [address]: Culture Manager/Techni vic ID = [id number] for Geo Bazan POCT-GLUCOSE [id number] 16:29:38 Test Item Value Reference Range Interpretation Comments POC-GLUCOSE METER 209 mg/dL 70-110 H : TESTED A T [facility] [address] (BEAKER) (test code [facility] [address] [address] [facility], = 1538) [place] [address]: Culture Manager/Techni vic ID = [id number] for Thomas aguirre Malcom POCT-GLUCOSE [id number] 11:24:02 Test Item Value Reference Range Interpretation Comments POC-GLUCOSE METER 190 mg/dL 70-110 H : TESTED A T [facility] [address] (BEAKER) (test code [facility] [address] [address] [facility], = 1538) [place] [address]: Culture Manager/Techni vic ID = [id number] for Thomas aguirre Malcom POCT-GLUCOSE [id number] 06:13:13 Test Item Value Reference Range Interpretation Comments POC-GLUCOSE METER 336 mg/dL 70-110 H : TESTED A T [facility] [address] (BEAKER) (test code [address], = 1538) [place] [address]: Culture Manager/Techni vic ID = [id number] for S Geo burkett [id number] 04:33:43 Test Item Value Reference Range Interpretation Comments MAGNESIUM (BEAKER) (test code = 1.7 mg/dL 1.5-3.0 627) Culture Manager ID - [id number] 04:33:43 Test Item Value Reference Range Interpretation Comments PHOSPHORUS (BEAKER) (test code = 3.1 mg/dL 2.5-4.5 604) Culture Manager ID - ADMINBASIC METABOLIC [id number] 04:33:42 Test Item Value Reference Range Interpretation [...] 697) EGFR (BEAKER) (test 69 mL/min/1.73 ESTIMA ALEX GFR IS code = 1092) sq m NOT ACCURATE CREATININE CLEARANCE IN PREDICTING GLOMERULAR FILTRATION RATE . ESTIMATED GFR I S NOT APPLICABLE FOR DIALYSIS PATIEN TS. Culture Manager ID - [id number] W/PLT COUNT & AUTO [id number] 03:59:44 Test Item Value Reference Range Interpretation [...] PERCENT (BEAKER) (test code = 2801) POCT-GLUCOSE [id number] 21:50:26 Test Item Value Reference Range Interpretation Comments POC-GLUCOSE METER 343 mg/dL 70-110 H : [place] [address] (BEAKER) (test code [facility], = 1538) [place] [address]: Culture Manager/Techni vic ID = [id number] for Geo Bazan MR, SPINE, LUMBAR, [id number] 19:21:00Unlisted Reason for Exam - Click Yes and Enter Reason Below->No [facility] CENTERName: GEREMIAS GARCIA : 1960 Sex: FFINAL REPORT MR, SPINE, LUMBAR, WITH \\T\\ WITHOUT CONTRAST INDICATION: Back pain or radiculopathy, [...] L4-L5 and L5-S1 as per above. Signed: Vanda Foster Verified Date/Time: 01/11/2022 19:21:53 POCT-GLUCOSE [id number] 17:39:53 Test Item Value Reference Range Interpretation Comments POC-GLUCOSE METER 219 mg/dL 70-110 H : TESTED A T [facility] [address] (BEAKER) (test code [facility], = 1538) [place] [address]: Culture Manager/Techni vic ID = [id number] for T Malcom aguirre, KNEE, 1 OR 2 VIEWS, [id number] 13:02:00Reason for exam:->fallShould this be performed at the bedside?->Yes [facility] CENTERName: GEREMIAS GARCIA : 1960 Sex: FFINAL REPORT Left knee 2 views History provided: Fall, knee pain No bony orjoint abnormality is evident. Signed: Srikanth Ventura Verified Date/Time: 01/11/2022 13:02:27 Reading Location: [facility] Radiology Reading Room Electronically signed by: SRIKANTH VENTURA on :02 PMRAD, HIP, 2-3 VIEWS, LEFT, TO INCL PELVIS WHEN [id number] 13:01:00Reason for exam:- >fall Should this be performed at the bedside?->Yes [facility] 1960 Sex: FFINAL REPORT Left hip History provided: Fall, hip pain No bony or joint abnormality is evident. Signed: Srikanth Ventura MDReport Verified Date/Time: 01/11/2022 13:01:15 Reading Location: [facility] Radiology Reading Room POCT-GLUCOSE [id number] 11:33:32 Test Item Value Reference Range Interpretation Comments POC-GLUCOSE METER 367 mg/dL 70-110 H : [place] [address] (BEAKER) (test code [facility], = 1538) [place] [address]: Culture Manager/Techni vic ID = [id number] for Malcom Jasso POCT-GLUCOSE [id number] 06:14:39 Test Item Value Reference Range Interpretation Comments POC-GLUCOSE METER 135 mg/dL 70-110 H : TESTED A T [facility] [address] (BEAKER) (test code [facility], = 1538) [place] [address]: Culture Manager/Techni vic ID = [id number] for I sidric Tracy BASIC METABOLIC [id number] 04:33:18 Test Item Value Reference Range Interpretation [...] 1092) DATA TO CALCULA TE ESTIMATED GFR. Culture Manager ID - [id number] 04:31:48 Test Item Value Reference Range Interpretation Comments MAGNESIUM (BEAKER) (test code = 2.0 mg/dL 1.5-3.0 627) Culture Manager ID - [id number] 04:31:48 Test Item Value Reference Range Interpretation Comments PHOSPHORUS (BEAKER) (test code = 2.8 mg/dL 2.5-4.5 604) Culture Manager ID - [id number] W/PLT COUNT & AUTO [id number] 04:00:33 Test Item Value Reference Range Interpretation [...] PERCENT (BEAKER) (test code = 2801) POCT-GLUCOSE [id number] 01:49:41 Test Item Value Reference Range Interpretation Comments POC-GLUCOSE METER 350 mg/dL 70-110 H : TESTED A T [facility] [address] (BEAKER) (test code [facility], = 1538) [facility] [address]: Culture Manager/Techni vic ID = [id number] for Tracy Lewis POCT-GLUCOSE [id number] 00:37:23 Test Item Value Reference Range Interpretation Comments POC-GLUCOSE METER 396 mg/dL 70-110 H : Notified RN/MD: TESTED (BEAKER) (test code AT [facility] [address] [facility] = 1538) [facility] [address]: Culture Manager/Techni vic ID = [id number] for Tracy Lewis POCT-GLUCOSE [id number] 22:03:51 Test Item Value Reference Range Interpretation Comments POC-GLUCOSE METER 378 mg/dL 70-110 H : TESTED A T [facility] [address] (BEAKER) (test code [facility], = 1538) [place] [address]: Culture Manager/Techni vic ID = [id number] for Vero Augustin POCT-GLUCOSE [id number] 20:37:08 Test Item Value Reference Range Interpretation Comments POC-GLUCOSE METER 211 mg/dL 70-110 H : TESTED A T [facility] [address] (BEAKER) (test code [facility], = 1538) [place] [address]: Culture Manager/Techni vic ID = [id number] for Leticia Villarreal BASIC METABOLIC [id number] 18:10:22 Test Item Value Reference Range Interpretation [...] 1092) DATA TO CALCULA TE ESTIMATED GFR. Culture Manager ID - [id number] 17:59:07 Test Item Value Reference Range Interpretation Comments POC-GLUCOSE METER 77 mg/dL 70-110 : TESTED A T [facility] [address] (BEAKER) (test code = [facility] [address] [facility], 1538) [place] [address]: Culture Manager/Techni vic ID = [id number] for Lord Kei Royal [id number] 17:03:10 Test Item Value Reference Range Interpretation Comments PHOSPHORUS (BEAKER) 2.4 mg/dL 2.5-4.5 L Specimen slightly (test code = 604) hemolyzed Culture Manager ID - [id number] 17:03:09 Test Item Value Reference Range Interpretation Comments MAGNESIUM (BEAKER) 2.6 mg/dL 1.5-3.0 Specimen slightly (test code = 627) hemolyzed Culture Manager ID - [id number] 16:36:43 Test Item Value Reference Range Interpretation Comments POC-GLUCOSE METER 74 mg/dL 70-110 : TESTED A T [facility] [address] (BEAKER) (test code = [facility], 1538) [place] [address]: Culture Manager/Techni vic ID = [id number] for Lord Kei Royal CALCIUM, [id number] 16:32:38 Test Item Value Reference Range Interpretation Comments CALCIUM IONIZED (BEAKER) (test 1.14 mmol/L 1.12-1.27 code = 698) PH, BLOOD (BEAKER) (test code = 7.48 1810) POCT-GLUCOSE [id number] 15:27:29 Test Item Value Reference Range Interpretation Comments POC-GLUCOSE METER 79 mg/dL 70-110 : TESTED A T [facility] [address] (BEAKER) (test code = [facility], 1538) [place] [address]: Culture Manager/Techni vic ID = [id number] for Lord Kei Royal POCT-GLUCOSE [id number] 13:58:51 Test Item Value Reference Range Interpretation Comments POC-GLUCOSE METER 132 mg/dL 70-110 H : TESTED A T [facility] [address] (BEAKER) (test code [facility], = 1538) [place] [address]: Culture Manager/Techni vic ID = [id number] for Lord Kei Royal POCT-GLUCOSE [id number] 12:54:59 Test Item Value Reference Range Interpretation Comments POC-GLUCOSE METER 88 mg/dL 70-110 : TESTED A T [facility] 99952 (BEAKER) (test code = [address] [facility], 1538) [place] [address]: Culture Manager/Techni vic ID = [id number] for [facility] BASIC METABOLIC [id number] 12:11:39 Test Item Value Reference Range Interpretation [...] 1092) DATA TO CALCULA TE ESTIMATED GFR. Culture Manager ID - [id number] 12:11:23 Test Item Value Reference Range Interpretation Comments PHOSPHORUS (BEAKER) (test code = 1.2 mg/dL 2.5-4.5 LL 604) Culture Manager ID - [id number] 12:09:23 Test Item Value Reference Range Interpretation Comments MAGNESIUM (BEAKER) (test code = 1.3 mg/dL 1.5-3.0 L 627) Culture Manager ID - [id number] 10:42:28 Test Item Value Reference Range Interpretation Comments POC-GLUCOSE METER 295 mg/dL 70-110 H : TESTED A T [facility] [id number] (BEAKER) (test code [facility], = 1538) [place] [address]: Culture Manager/Techni vic ID = [id number] for [facility] POCT-GLUCOSE [id number] 09:27:48 Test Item Value Reference Range Interpretation Comments POC-GLUCOSE METER 226 mg/dL 70-110 H : TESTED A T [facility] [address]41 (BEAKER) (test code [facility] [address] [facility], = 1538) [place] [address]: Culture Manager/Techni vic ID = [id number] for [facility] POCT-GLUCOSE [id number] 07:47:33 Test Item Value Reference Range Interpretation Comments POC-GLUCOSE METER 232 mg/dL 70-110 H : TESTED A T [facility] 81291 (BEAKER) (test code [facility], = 1538) [place] [address]: Culture Manager/Techni vic ID = [id number] for [facility] VITAMIN D, [id number] 07:23:56 Test Item Value Reference Range Interpretation Comments VITAMIN D 25-OH (BEAKER) (test 25.1 ng/mL 6.6-49.9 code = 2764) Effective 06/22/2017: Reference Range ChangeNew: 6.6-49.9 ng/mL Previous: 13.0- 47.8 ng/mLRecommendedVitamin D Target Range: 30.0-40.0 ng/mLOperator ID - DB [id number] 06:55:53 Test Item Value Reference Range Interpretation Comments PROCALCITONIN (BEAKER) (test code = < ng/mL <0.05 3036) SEPSIS RISK (ng/mL)Low: 0.05-0.50Intermediate: 0.51-2.00High: >=2.01Rapid drug screen, [id number] 06:49:49 Test Item Value Reference Range Interpretation Comments Barbiturate Screen Negative Negative (test code = 25335-3) Benzodiazepine Negative Negative Screen (test code = 13687-6) Cocaine (Metab.) Negative Negative Screen (test code = 3397-7) Methadone Screen Negative Negative (test code = 62477-7) Opiate Screen (test Positive Negative A code = 88151-0) Cannabinoid Screen Negative Negative (test code = 95055-0) Amph/Methamph Screen Negative Negative (test code = 15287-7) Phencyclidine Screen Negative Negative (test code = 18402-7) pH, UA (test code = 6.0 5.0-8.0 pH perfo rmed 5803-2) by [facility] IRIS method MITESH (test code = DRUG CUTOFF MITESH) CONC.Cocaine 300 ng/mL Cannabinoid 50 ng/mLBenzodiazepine 200 ng/mLBarbiturate 200 ng/mLPhencyclidine 25 ng/mLOpiate 300 ng/mLMethadone 300 ng/mLAmphetamine/ 1000 ng/mL Methamphetamine This assay provides an unconfirmed qualitative test result for the clinical management of patients in emergency situations. Chain of custody not maintained. Some ircu-ykv-boxdhkp medications, as well as adulterants, may cause inaccurate results. Clinical correlation should be applied. A more comprehensive drug screen or confirmation of a detected drug may be performed upon request.Culture Manager ID - [id number] Lab Interpretation Abnormal (test code = 29658-1) [facility], [id number] 06:49:49 Test Item Value Reference Range Interpretation Comments Barbiturate Screen Negative Negative (test code = 55390-1) Benzodiazepine Negative Negative Screen (test code = 59730-9) Cocaine (Metab.) Negative Negative Screen (test code = 3397-7) Methadone Screen Negative Negative (test code = 10191-5) Opiate Screen (test Positive Negative A code = 08391-7) Cannabinoid Screen Negative Negative (test code = 80654-0) Amph/Methamph Screen Negative Negative (test code = 36118-7) Phencyclidine Screen Negative Negative (test code = 69273-3) pH, UA (test code = 6.0 5.0-8.0 pH perfo rmed 5803-2) by WDL IRIS method MITESH (test code = DRUG CUTOFF MITESH) CONC.Cocaine 300 ng/mL Cannabinoid 50 ng/mLBenzodiazepine 200 ng/mLBarbiturate 200 ng/mLPhencyclidine 25 ng/mLOpiate 300 ng/mLMethadone 300 ng/mLAmphetamine/ 1000 ng/mL Methamphetamine This assay provides an unconfirmed qualitative test result for the clinical management of patients in emergency situations. Chain of custody not maintained. Some czdz-nva-pgsdgwh medications, as well as adulterants, may cause inaccurate results. Clinical correlation should be applied. A more comprehensive drug screen or confirmation of a detected drug may be performed upon request.Culture Manager ID - [id number] Lab Interpretation Abnormal (test code = 95431-3) [facility], [id number] 06:49:49 Test Item Value Reference Range Interpretation Comments Barbiturate Screen Negative Negative (test code = 16117-1) Benzodiazepine Negative Negative Screen (test code = 70901-9) Cocaine (Metab.) Negative Negative Screen (test code = 3397-7) Methadone Screen Negative Negative (test code = 20831-8) Opiate Screen (test Positive Negative A code = 63014-5) Cannabinoid Screen Negative Negative (test code = 85598-9) Amph/Methamph Screen Negative Negative (test code = 54407-3) Phencyclidine Screen Negative Negative (test code = 68077-4) pH, UA (test code = 6.0 5.0-8.0 pH perfo rmed 5803-2) by [facility]DL IRIS method MITESH (test code = DRUG CUTOFF MITESH) CONC.Cocaine 300 ng/mL Cannabinoid 50 ng/mLBenzodiazepine 200 ng/mLBarbiturate 200 ng/mLPhencyclidine 25 ng/mLOpiate 300 ng/mLMethadone 300 ng/mLAmphetamine/ 1000 ng/mL Methamphetamine This assay provides an unconfirmed qualitative test result for the clinical management of patients in emergency situations. Chain of custody not maintained. Some xphn-unk-gyrnrqr medications, as well as adulterants, may cause inaccurate results. Clinical correlation should be applied. A more comprehensive drug screen or confirmation of a detected drug may be performed upon request.Culture Manager ID - [id number] Lab Interpretation Abnormal (test code = 85072-2) [facility], [id number] 06:49:49 Test Item Value Reference Range Interpretation Comments Barbiturate Screen Negative Negative (test code = 79009-0) Benzodiazepine Negative Negative Screen (test code = 73858-7) Cocaine (Metab.) Negative Negative Screen (test code = 3397-7) Methadone Screen Negative Negative (test code = 73856-9) Opiate Screen (test Positive Negative A code = 53453-8) Cannabinoid Screen Negative Negative (test code = 93246-1) Amph/Methamph Screen Negative Negative (test code = 01779-5) Phencyclidine Screen Negative Negative (test code = 68481-8) pH, UA (test code = 6.0 5.0-8.0 pH perfo rmed 5803-2) by WDL IRIS method MITESH (test code = DRUG CUTOFF MITESH) CONC.Cocaine 300 ng/mL Cannabinoid 50 ng/mLBenzodiazepine 200 ng/mLBarbiturate 200 ng/mLPhencyclidine 25 ng/mLOpiate 300 ng/mLMethadone 300 ng/mLAmphetamine/ 1000 ng/mL Methamphetamine This assay provides an unconfirmed qualitative test result for the clinical management of patients in emergency situations. Chain of custody not maintained. Some xhes-cfe-srcdtgk medications, as well as adulterants, may cause inaccurate results. Clinical correlation should be applied. A more comprehensive drug screen or confirmation of a detected drug may be performed upon request.Culture Manager ID - [id number] Lab Interpretation Abnormal (test code = 11629-5) [facility], [id number] 06:49:49 Test Item Value Reference Range Interpretation Comments Barbiturate Screen Negative Negative (test code = 39566-4) Benzodiazepine Negative Negative Screen (test code = 36999-0) Cocaine (Metab.) Negative Negative Screen (test code = 3397-7) Methadone Screen Negative Negative (test code = 71829-1) Opiate Screen (test Positive Negative A code = 47747-6) Cannabinoid Screen Negative Negative (test code = 39344-4) Amph/Methamph Screen Negative Negative (test code = 33157-6) Phencyclidine Screen Negative Negative (test code = 70948-3) pH, UA (test code = 6.0 5.0-8.0 pH perfo rmed 5803-2) by WDL IRIS method MITESH (test code = DRUG CUTOFF MITESH) CONC.Cocaine 300 ng/mL Cannabinoid 50 ng/mLBenzodiazepine 200 ng/mLBarbiturate 200 ng/mLPhencyclidine 25 ng/mLOpiate 300 ng/mLMethadone 300 ng/mLAmphetamine/ 1000 ng/mL Methamphetamine This assay provides an unconfirmed qualitative test result for the clinical management of patients in emergency situations. Chain of custody not maintained. Some ouei-ype-hlxyndf medications, as well as adulterants, may cause inaccurate results. Clinical correlation should be applied. A more comprehensive drug screen or confirmation of a detected drug may be performed upon request.Culture Manager ID - [id number] Lab Interpretation Abnormal (test code = 30788-1) [facility], [id number] 06:49:49 Test Item Value Reference Range Interpretation Comments Barbiturate Screen Negative Negative (test code = 37836-0) Benzodiazepine Negative Negative Screen (test code = 35818-2) Cocaine (Metab.) Negative Negative Screen (test code = 3397-7) Methadone Screen Negative Negative (test code = 54562-5) Opiate Screen (test Positive Negative A code = 31438-4) Cannabinoid Screen Negative Negative (test code = 14768-4) Amph/Methamph Screen Negative Negative (test code = 90264-1) Phencyclidine Screen Negative Negative (test code = 65289-4) pH, UA (test code = 6.0 5.0-8.0 pH perfo rmed 5803-2) by WDL IRIS method MITESH (test code = DRUG CUTOFF MITESH) CONC.Cocaine 300 ng/mL Cannabinoid 50 ng/mLBenzodiazepine 200 ng/mLBarbiturate 200 ng/mLPhencyclidine 25 ng/mLOpiate 300 ng/mLMethadone 300 ng/mLAmphetamine/ 1000 ng/mL Methamphetamine This assay provides an unconfirmed qualitative test result for the clinical management of patients in emergency situations. Chain of custody not maintained. Some tura-wgg-vsdmtsl medications, as well as adulterants, may cause inaccurate results. Clinical correlation should be applied. A more comprehensive drug screen or confirmation of a detected drug may be performed upon request.Culture Manager ID - [id number] Lab Interpretation Abnormal (test code = 37441-0) [facility], [id number] 06:49:49 Test Item Value Reference Range Interpretation Comments Barbiturate Screen Negative Negative (test code = 10500-2) Benzodiazepine Negative Negative Screen (test code = 22047-9) Cocaine (Metab.) Negative Negative Screen (test code = 3397-7) Methadone Screen Negative Negative (test code = 86670-2) Opiate Screen (test Positive Negative A code = 00646-1) Cannabinoid Screen Negative Negative (test code = 84346-9) Amph/Methamph Screen Negative Negative (test code = 97147-6) Phencyclidine Screen Negative Negative (test code = 94012-6) pH, UA (test code = 6.0 5.0-8.0 pH perfo rmed 5803-2) by WDL IRIS method MITESH (test code = DRUG CUTOFF MITESH) CONC.Cocaine 300 ng/mL Cannabinoid 50 ng/mLBenzodiazepine 200 ng/mLBarbiturate 200 ng/mLPhencyclidine 25 ng/mLOpiate 300 ng/mLMethadone 300 ng/mLAmphetamine/ 1000 ng/mL Methamphetamine This assay provides an unconfirmed qualitative test result for the clinical management of patients in emergency situations. Chain of custody not maintained. Some entk-rmm-yhepbmt medications, as well as adulterants, may cause inaccurate results. Clinical correlation should be applied. A more comprehensive drug screen or confirmation of a detected drug may be performed upon request.Culture Manager ID - [id number] Lab Interpretation Abnormal (test code = 27252-6) [facility], [id number] 06:49:49 Test Item Value Reference Range Interpretation Comments Barbiturate Screen Negative Negative (test code = 71063-6) Benzodiazepine Negative Negative Screen (test code = 93561-6) Cocaine (Metab.) Negative Negative Screen (test code = 3397-7) Methadone Screen Negative Negative (test code = 26181-2) Opiate Screen (test Positive Negative A code = 77404-3) Cannabinoid Screen Negative Negative (test code = 32394-0) Amph/Methamph Screen Negative Negative (test code = 79408-8) Phencyclidine Screen Negative Negative (test code = 85966-9) pH, UA (test code = 6.0 5.0-8.0 pH perfo ed 5803-2) by [facility] IRIS method MITESH (test code = DRUG CUTOFF MITESH) CONC.Cocaine 300 ng/mL Cannabinoid 50 ng/mLBenzodiazepine 200 ng/mLBarbiturate 200 ng/mLPhencyclidine 25 ng/mLOpiate 300 ng/mLMethadone 300 ng/mLAmphetamine/ 1000 ng/mL Methamphetamine This assay provides an unconfirmed qualitative test result for the clinical management of patients in emergency situations. Chain of custody not maintained. Some vpuu-vgb-mehseds medications, as well as adulterants, may cause inaccurate results. Clinical correlation should be applied. A more comprehensive drug screen or confirmation of a detected drug may be performed upon request.Culture Manager ID - [id number] Lab Interpretation Abnormal (test code = 00808-2) [facility], [id number] 06:49:49 Test Item Value Reference Range Interpretation Comments Barbiturate Screen Negative Negative (test code = 16244-5) Benzodiazepine Negative Negative Screen (test code = 28824-4) Cocaine (Metab.) Negative Negative Screen (test code = 3397-7) Methadone Screen Negative Negative (test code = 66522-8) Opiate Screen (test Positive Negative A code = 32706-3) Cannabinoid Screen Negative Negative (test code = 12905-4) Amph/Methamph Screen Negative Negative (test code = 59503-7) Phencyclidine Screen Negative Negative (test code = 64109-0) pH, UA (test code = 6.0 5.0-8.0 pH perfo rmed 5803-2) by WDL IRIS method MITESH (test code = DRUG CUTOFF MITESH) CONC.Cocaine 300 ng/mL Cannabinoid 50 ng/mLBenzodiazepine 200 ng/mLBarbiturate 200 ng/mLPhencyclidine 25 ng/mLOpiate 300 ng/mLMethadone 300 ng/mLAmphetamine/ 1000 ng/mL Methamphetamine This assay provides an unconfirmed qualitative test result for the clinical management of patients in emergency situations. Chain of custody not maintained. Some oczs-qve-mavlhri medications, as well as adulterants, may cause inaccurate results. Clinical correlation should be applied. A more comprehensive drug screen or confirmation of a detected drug may be performed upon request.Culture Manager ID - [id number] Lab Interpretation Abnormal (test code = 84561-9) [facility], [id number] 06:49:49 Test Item Value Reference Range Interpretation Comments Barbiturate Screen Negative Negative (test code = 00535-9) Benzodiazepine Negative Negative Screen (test code = 48702-7) Cocaine (Metab.) Negative Negative Screen (test code = 3397-7) Methadone Screen Negative Negative (test code = 81537-2) Opiate Screen (test Positive Negative A code = 54213-7) Cannabinoid Screen Negative Negative (test code = 95187-6) Amph/Methamph Screen Negative Negative (test code = 47280-8) Phencyclidine Screen Negative Negative (test code = 24551-0) pH, UA (test code = 6.0 5.0-8.0 pH perfo rmed 5803-2) by WDL IRIS method MITESH (test code = DRUG CUTOFF MITESH) CONC.Cocaine 300 ng/mL Cannabinoid 50 ng/mLBenzodiazepine 200 ng/mLBarbiturate 200 ng/mLPhencyclidine 25 ng/mLOpiate 300 ng/mLMethadone 300 ng/mLAmphetamine/ 1000 ng/mL Methamphetamine This assay provides an unconfirmed qualitative test result for the clinical management of patients in emergency situations. Chain of custody not maintained. Some ydur-sbh-fjfaosd medications, as well as adulterants, may cause inaccurate results. Clinical correlation should be applied. A more comprehensive drug screen or confirmation of a detected drug may be performed upon request.Culture Manager ID - [id number] Lab Interpretation Abnormal (test code = 16402-6) [facility], [id number] 06:49:49 Test Item Value Reference Range Interpretation Comments Barbiturate Screen Negative Negative (test code = 26823-3) Benzodiazepine Negative Negative Screen (test code = 70430-2) Cocaine (Metab.) Negative Negative Screen (test code = 3397-7) Methadone Screen Negative Negative (test code = 96862-7) Opiate Screen (test Positive Negative A code = 45372-0) Cannabinoid Screen Negative Negative (test code = 50027-0) Amph/Methamph Screen Negative Negative (test code = 47829-8) Phencyclidine Screen Negative Negative (test code = 54895-5) pH, UA (test code = 6.0 5.0-8.0 pH perfo rmed 5803-2) by L IRIS method MITESH (test code = DRUG CUTOFF MITESH) CONC.Cocaine 300 ng/mL Cannabinoid 50 ng/mLBenzodiazepine 200 ng/mLBarbiturate 200 ng/mLPhencyclidine 25 ng/mLOpiate 300 ng/mLMethadone 300 ng/mLAmphetamine/ 1000 ng/mL Methamphetamine This assay provides an unconfirmed qualitative test result for the clinical management of patients in emergency situations. Chain of custody not maintained. Some skcw-jrk-ayeqkwa medications, as well as adulterants, may cause inaccurate results. Clinical correlation should be applied. A more comprehensive drug screen or confirmation of a detected drug may be performed upon request.Culture Manager ID - [id number] Lab Interpretation Abnormal (test code = 87943-5) [facility], [id number] 06:49:49 Test Item Value Reference Range Interpretation Comments Barbiturate Screen Negative Negative (test code = 62016-0) Benzodiazepine Negative Negative Screen (test code = 83429-3) Cocaine (Metab.) Negative Negative Screen (test code = 3397-7) Methadone Screen Negative Negative (test code = 37951-3) Opiate Screen (test Positive Negative A code = 85258-7) Cannabinoid Screen Negative Negative (test code = 86359-4) Amph/Methamph Screen Negative Negative (test code = 55882-8) Phencyclidine Screen Negative Negative (test code = 82214-3) pH, UA (test code = 6.0 5.0-8.0 pH perfo rmed 5803-2) by WDL IRIS method MITESH (test code = DRUG CUTOFF MITESH) CONC.Cocaine 300 ng/mL Cannabinoid 50 ng/mLBenzodiazepine 200 ng/mLBarbiturate 200 ng/mLPhencyclidine 25 ng/mLOpiate 300 ng/mLMethadone 300 ng/mLAmphetamine/ 1000 ng/mL Methamphetamine This assay provides an unconfirmed qualitative test result for the clinical management of patients in emergency situations. Chain of custody not maintained. Some gzne-rcl-mzznetc medications, as well as adulterants, may cause inaccurate results. Clinical correlation should be applied. A more comprehensive drug screen or confirmation of a detected drug may be performed upon request.Culture Manager ID - [id number] Lab Interpretation Abnormal (test code = 71176-7) [facility], [id number] 06:49:49 Test Item Value Reference Range Interpretation Comments Barbiturate Screen Negative Negative (test code = 69297-5) Benzodiazepine Negative Negative Screen (test code = 37340-7) Cocaine (Metab.) Negative Negative Screen (test code = 3397-7) Methadone Screen Negative Negative (test code = 41640-5) Opiate Screen (test Positive Negative A code = 26092-3) Cannabinoid Screen Negative Negative (test code = 51198-1) Amph/Methamph Screen Negative Negative (test code = 55060-8) Phencyclidine Screen Negative Negative (test code = 08647-9) pH, UA (test code = 6.0 5.0-8.0 pH perfo rmed 5803-2) by WDL IRIS method MITESH (test code = DRUG CUTOFF MITESH) CONC.Cocaine 300 ng/mL Cannabinoid 50 ng/mLBenzodiazepine 200 ng/mLBarbiturate 200 ng/mLPhencyclidine 25 ng/mLOpiate 300 ng/mLMethadone 300 ng/mLAmphetamine/ 1000 ng/mL Methamphetamine This assay provides an unconfirmed qualitative test result for the clinical management of patients in emergency situations. Chain of custody not maintained. Some zoof-krf-yqurexz medications, as well as adulterants, may cause inaccurate results. Clinical correlation should be applied. A more comprehensive drug screen or confirmation of a detected drug may be performed upon request.Culture Manager ID - [id number] Lab Interpretation Abnormal (test code = 16749-6) [facility], [id number] 06:49:49 Test Item Value Reference Range Interpretation Comments Barbiturate Screen Negative Negative (test code = 28768-4) Benzodiazepine Negative Negative Screen (test code = 68416-3) Cocaine (Metab.) Negative Negative Screen (test code = 3397-7) Methadone Screen Negative Negative (test code = 83864-8) Opiate Screen (test Positive Negative A code = 41678-9) Cannabinoid Screen Negative Negative (test code = 88010-4) Amph/Methamph Screen Negative Negative (test code = 33028-9) Phencyclidine Screen Negative Negative (test code = 88819-4) pH, UA (test code = 6.0 5.0-8.0 pH perfo ed 5803-2) by L IRIS method MITESH (test code = DRUG CUTOFF MITESH) CONC.Cocaine 300 ng/mL Cannabinoid 50 ng/mLBenzodiazepine 200 ng/mLBarbiturate 200 ng/mLPhencyclidine 25 ng/mLOpiate 300 ng/mLMethadone 300 ng/mLAmphetamine/ 1000 ng/mL Methamphetamine This assay provides an unconfirmed qualitative test result for the clinical management of patients in emergency situations. Chain of custody not maintained. Some dcar-mxx-vacwenq medications, as well as adulterants, may cause inaccurate results. Clinical correlation should be applied. A more comprehensive drug screen or confirmation of a detected drug may be performed upon request.Culture Manager ID - [id number] Lab Interpretation Abnormal (test code = 64664-7) [facility], [id number] 06:49:49 Test Item Value Reference Range Interpretation Comments Barbiturate Screen Negative Negative (test code = 10792-5) Benzodiazepine Negative Negative Screen (test code = 26553-6) Cocaine (Metab.) Negative Negative Screen (test code = 3397-7) Methadone Screen Negative Negative (test code = 50493-0) Opiate Screen (test Positive Negative A code = 02209-8) Cannabinoid Screen Negative Negative (test code = 56524-8) Amph/Methamph Screen Negative Negative (test code = 97256-6) Phencyclidine Screen Negative Negative (test code = 11342-5) pH, UA (test code = 6.0 5.0-8.0 pH perfo rmed 5803-2) by WDL IRIS method MITESH (test code = DRUG CUTOFF MITESH) CONC.Cocaine 300 ng/mL Cannabinoid 50 ng/mLBenzodiazepine 200 ng/mLBarbiturate 200 ng/mLPhencyclidine 25 ng/mLOpiate 300 ng/mLMethadone 300 ng/mLAmphetamine/ 1000 ng/mL Methamphetamine This assay provides an unconfirmed qualitative test result for the clinical management of patients in emergency situations. Chain of custody not maintained. Some tcss-dnb-deffzax medications, as well as adulterants, may cause inaccurate results. Clinical correlation should be applied. A more comprehensive drug screen or confirmation of a detected drug may be performed upon request.Culture Manager ID - [id number] Lab Interpretation Abnormal (test code = 87677-1) [facility], [id number] 06:49:49 Test Item Value Reference Range Interpretation Comments Barbiturate Screen Negative Negative (test code = 84589-8) Benzodiazepine Negative Negative Screen (test code = 31417-6) Cocaine (Metab.) Negative Negative Screen (test code = 3397-7) Methadone Screen Negative Negative (test code = 48256-9) Opiate Screen (test Positive Negative A code = 85843-2) Cannabinoid Screen Negative Negative (test code = 58466-9) Amph/Methamph Screen Negative Negative (test code = 80053-0) Phencyclidine Screen Negative Negative (test code = 38677-2) pH, UA (test code = 6.0 5.0-8.0 pH perfo rmed 5803-2) by WDL IRIS method MITESH (test code = DRUG CUTOFF MITESH) CONC.Cocaine 300 ng/mL Cannabinoid 50 ng/mLBenzodiazepine 200 ng/mLBarbiturate 200 ng/mLPhencyclidine 25 ng/mLOpiate 300 ng/mLMethadone 300 ng/mLAmphetamine/ 1000 ng/mL Methamphetamine This assay provides an unconfirmed qualitative test result for the clinical management of patients in emergency situations. Chain of custody not maintained. Some nrvy-aib-wctphdz medications, as well as adulterants, may cause inaccurate results. Clinical correlation should be applied. A more comprehensive drug screen or confirmation of a detected drug may be performed upon request.Culture Manager ID - [id number] Lab Interpretation Abnormal (test code = 56413-3) [facility], [id number] 06:49:49 Test Item Value Reference Range Interpretation [...] situations. Chain of custody not maintained. Some arwp-wad-vhzysjd medications, as well as adulterants, may cause inaccurate results. Clinical correlation should be applied. A more comprehensive drug screen or confirmation of a detected drug may be performed upon request.Culture Manager ID - [id number] METABOLIC [id number] 06:31:55 Test Item Value Reference Range Interpretation [...] 1092) DATA TO CALCULA TE ESTIMATED GFR. Culture Manager ID - [id number] 06:31:03 Test Item Value Reference Range Interpretation Comments PHOSPHORUS (BEAKER) (test code = 2.0 mg/dL 2.5-4.5 L 604) Culture Manager ID - [id number] 06:31:02 Test Item Value Reference Range Interpretation Comments MAGNESIUM (BEAKER) (test code = 2.7 mg/dL 1.5-3.0 627) Culture Manager ID - [id number] 06:25:10 Test Item Value Reference Range Interpretation Comments ETHANOL (BEAKER) < mg/dL See_Comment [Automated message] The (test code = 400) system [facility] generated this result tra nsmitted reference range : <=10. The reference r ronel was not used to int erpret this result as normal/abnormal . Culture Manager ID - [id number] 06:14:52 Test Item Value Reference Range Interpretation Comments POC-GLUCOSE METER 158 mg/dL 70-110 H : TESTED A T [facility] [address] (BEAKER) (test code [address], = 1538) [place] [address]: Culture Manager/Techni vic ID = [id number] for Christian michelle Alfredo POCT-GLUCOSE [id number] 06:13:16 Test Item Value Reference Range Interpretation Comments POC-GLUCOSE METER 178 mg/dL 70-110 H : TESTED A T [facility] [address] (BEAKER) (test code [address], = 1538) [place] [address] 384: Culture Manager/Techni vic ID = [id number] for Alfredo Haq POCT-GLUCOSE [id number] 05:17:23 Test Item Value Reference Range Interpretation Comments POC-GLUCOSE METER 197 mg/dL 70-110 H : [facility] [facility] [id number] (BEAKER) (test code [address], = 1538) [place] [address] 384: Culture Manager/Techni vic ID = [id number] for Alfredo Haq Urinalysis w/Microscopic + Reflex to [id number] 05:15:30 Test Item Value Reference Range Interpretation Comments Color, UA (test code Yellow = 5778-6) Clarity, UA (test Hazy code = 5767-9) Specific [place], UA 1.014 1.001-1.035 (test code = 5811-5) pH, UA (test code = 6.0 5.0-8.0 5803-2) Protein, UA (test Negative Negative code = 87149-2) Glucose, UA (test >500 mg/dL Negative A code = 365) Ketones, UA (test Trace Negative A code = 2514-8) Bilirubin, UA (test Negative Negative code = 92507-3) Blood, UA (test code Negative Negative = 44851-6) Nitrite, UA (test Negative Negative code = 5802-4) Leukocytes, UA (test Small Negative A code = 5799-2) Urobilinogen, UA <1.0 0.2-1.0 (test code = 32467-6) RBC, UA (test code = 1 See_Comment [Autom ated 66507-2) message] The system which generated this result transmit alex reference range : /HPF. The reference range was not used to interpret this result as normal/abnormal . WBC, UA (test code = 49 See_Comment [Autom ated 5821-4) message] The system which generated this result transmit alex reference range : /HPF. The reference range was not used to interpret this result as normal/abnormal . Bacteria, UA (test Moderate code = 41119-0) Mucus (test code = Rare 8247-9) Squam Epithel, UA 1 See_Comment [Automate d (test code = 30357-0) messag e] The system which generated this result transmit alex reference range : /HPF. The reference range was not used to interpret this result as normal/abnormal . Specimen Source (test code = 2795) MITESH (test code = MITESH) Culture Manager ID - [auto]Culture Manager ID - tech Lab Interpretation Abnormal (test code = 86024-8) [facility] 20[facility]-10 05:15:30 Test Item Value Reference Range Interpretation Comments Color, UA (test code Yellow = 5778-6) Clarity, UA (test Hazy code = 5767-9) Specific [place], UA 1.014 1.001-1.035 (test code = 5811-5) pH, UA (test code = 6.0 5.0-8.0 5803-2) Protein, UA (test Negative Negative code = 35506-0) Glucose, UA (test >500 mg/dL Negative A code = 365) Ketones, UA (test Trace Negative A code = 2514-8) Bilirubin, UA (test Negative Negative code = 72341-0) Blood, UA (test code Negative Negative = 31869-4) Nitrite, UA (test Negative Negative code = 5802-4) Leukocytes, UA (test Small Negative A code = 5799-2) Urobilinogen, UA <1.0 0.2-1.0 (test code = 37442-1) RBC, UA (test code = 1 See_Comment [Autom ated 96895-5) message] The system which generated this result transmit alex reference range : /HPF. The reference range was not used to interpret this result as normal/abnormal . WBC, UA (test code = 49 See_Comment [Autom ated 5821-4) message] The system which generated this result transmit alex reference range : /HPF. The reference range was not used to interpret this result as normal/abnormal . Bacteria, UA (test Moderate code = 66311-0) Mucus (test code = Rare 8247-9) Squam Epithel, UA 1 See_Comment [Automate d (test code = 68933-0) messag e] The system which generated this result transmit alex reference range : /HPF. The reference range was not used to interpret this result as normal/abnormal . Specimen Source (test code = 2795) MITESH (test code = MITESH) Culture Manager ID - [auto]Culture Manager ID - tech Lab Interpretation Abnormal (test code = 96458-6) [facility] 2022-01-10 05:15:30 Test Item Value Reference Range Interpretation Comments Color, UA (test code Yellow = 5778-6) Clarity, UA (test Hazy code = 5767-9) Specific [place], UA 1.014 1.001-1.035 (test code = 5811-5) pH, UA (test code = 6.0 5.0-8.0 5803-2) Protein, UA (test Negative Negative code = 89247-8) Glucose, UA (test >500 mg/dL Negative A code = 365) Ketones, UA (test Trace Negative A code = 2514-8) Bilirubin, UA (test Negative Negative code = 95554-1) Blood, UA (test code Negative Negative = 93876-4) Nitrite, UA (test Negative Negative code = 5802-4) Leukocytes, UA (test Small Negative A code = 5799-2) Urobilinogen, UA <1.0 0.2-1.0 (test code = 85879-4) RBC, UA (test code = 1 See_Comment [Autom ated 56752-6) message] The system which generated this result transmit alex reference range : /HPF. The reference range was not used to interpret this result as normal/abnormal . WBC, UA (test code = 49 See_Comment [Autom ated 5821-4) message] The system which generated this result transmit alex reference range : /HPF. The reference range was not used to interpret this result as normal/abnormal . Bacteria, UA (test Moderate code = 13878-1) Mucus (test code = Rare 8247-9) Squam Epithel, UA 1 See_Comment [Automate d (test code = 20347-5) messag e] The system which generated this result transmit alex reference range : /HPF. The reference range was not used to interpret this result as normal/abnormal . Specimen Source (test code = 2795) MITESH (test code = MITESH) Culture Manager ID - [auto]Culture Manager ID - tech Lab Interpretation Abnormal (test code = 69733-0) [facility] 2022-01-10 05:15:30 Test Item Value Reference Range Interpretation Comments Color, UA (test code Yellow = 5778-6) Clarity, UA (test Hazy code = 5767-9) Specific [place], UA 1.014 1.001-1.035 (test code = 5811-5) pH, UA (test code = 6.0 5.0-8.0 5803-2) Protein, UA (test Negative Negative code = 42234-4) Glucose, UA (test >500 mg/dL Negative A code = 365) Ketones, UA (test Trace Negative A code = 2514-8) Bilirubin, UA (test Negative Negative code = 77145-2) Blood, UA (test code Negative Negative = 04179-3) Nitrite, UA (test Negative Negative code = 5802-4) Leukocytes, UA (test Small Negative A code = 5799-2) Urobilinogen, UA <1.0 0.2-1.0 (test code = 37195-3) RBC, UA (test code = 1 See_Comment [Autom ated 28172-5) message] The system which generated this result transmit alex reference range : /HPF. The reference range was not used to interpret this result as normal/abnormal . WBC, UA (test code = 49 See_Comment [Autom ated 5821-4) message] The system which generated this result transmit alex reference range : /HPF. The reference range was not used to interpret this result as normal/abnormal . Bacteria, UA (test Moderate code = 86314-6) Mucus (test code = Rare 8247-9) Squam Epithel, UA 1 See_Comment [Automate d (test code = 55371-5) messag e] The system which generated this result transmit alex reference range : /HPF. The reference range was not used to interpret this result as normal/abnormal . Specimen Source (test code = 2795) MITESH (test code = MITESH) Culture Manager ID - [auto]Culture Manager ID - tech Lab Interpretation Abnormal (test code = 01128-6) [facility] 2022-01-10 05:15:30 Test Item Value Reference Range Interpretation Comments Color, UA (test code Yellow = 5778-6) Clarity, UA (test Hazy code = 5767-9) Specific [place], UA 1.014 1.001-1.035 (test code = 5811-5) pH, UA (test code = 6.0 5.0-8.0 5803-2) Protein, UA (test Negative Negative code = 56720-3) Glucose, UA (test >500 mg/dL Negative A code = 365) Ketones, UA (test Trace Negative A code = 2514-8) Bilirubin, UA (test Negative Negative code = 54007-9) Blood, UA (test code Negative Negative = 78429-0) Nitrite, UA (test Negative Negative code = 5802-4) Leukocytes, UA (test Small Negative A code = 5799-2) Urobilinogen, UA <1.0 0.2-1.0 (test code = 80929-8) RBC, UA (test code = 1 See_Comment [Autom ated 29587-5) message] The system which generated this result transmit alex reference range : /HPF. The reference range was not used to interpret this result as normal/abnormal . WBC, UA (test code = 49 See_Comment [Autom ated 5821-4) message] The system which generated this result transmit alex reference range : /HPF. The reference range was not used to interpret this result as normal/abnormal . Bacteria, UA (test Moderate code = 24721-0) Mucus (test code = Rare 8247-9) Squam Epithel, UA 1 See_Comment [Automate d (test code = 41708-1) messag e] The system which generated this result transmit alex reference range : /HPF. The reference range was not used to interpret this result as normal/abnormal . Specimen Source (test code = 2795) MITESH (test code = MITESH) Culture Manager ID - [auto]Culture Manager ID - tech Lab Interpretation Abnormal (test code = 12323-5) [facility] 2022-01-10 05:15:30 Test Item Value Reference Range Interpretation Comments Color, UA (test code Yellow = 5778-6) Clarity, UA (test Hazy code = 5767-9) Specific [place], UA 1.014 1.001-1.035 (test code = 5811-5) pH, UA (test code = 6.0 5.0-8.0 5803-2) Protein, UA (test Negative Negative code = 93343-0) Glucose, UA (test >500 mg/dL Negative A code = 365) Ketones, UA (test Trace Negative A code = 2514-8) Bilirubin, UA (test Negative Negative code = 92236-5) Blood, UA (test code Negative Negative = 31556-5) Nitrite, UA (test Negative Negative code = 5802-4) Leukocytes, UA (test Small Negative A code = 5799-2) Urobilinogen, UA <1.0 0.2-1.0 (test code = 66861-2) RBC, UA (test code = 1 See_Comment [Autom ated 43023-4) message] The system which generated this result transmit alex reference range : /HPF. The reference range was not used to interpret this result as normal/abnormal . WBC, UA (test code = 49 See_Comment [Autom ated 5821-4) message] The system which generated this result transmit alex reference range : /HPF. The reference range was not used to interpret this result as normal/abnormal . Bacteria, UA (test Moderate code = 52607-4) Mucus (test code = Rare 8247-9) Squam Epithel, UA 1 See_Comment [Automate d (test code = 19730-8) messag e] The system which generated this result transmit alex reference range : /HPF. The reference range was not used to interpret this result as normal/abnormal . Specimen Source (test code = 2795) MITESH (test code = MITESH) Culture Manager ID - [auto]Culture Manager ID - tech Lab Interpretation Abnormal (test code = 92354-1) [facility] Culture 2022-01-10 05:15:30 Test Item Value Reference Range Interpretation Comments Color, UA (test code Yellow = 5778-6) Clarity, UA (test Hazy code = 5767-9) Specific [place], UA 1.014 1.001-1.035 (test code = 5811-5) pH, UA (test code = 6.0 5.0-8.0 5803-2) Protein, UA (test Negative Negative code = 58346-0) Glucose, UA (test >500 mg/dL Negative A code = 365) Ketones, UA (test Trace Negative A code = 2514-8) Bilirubin, UA (test Negative Negative code = 79627-8) Blood, UA (test code Negative Negative = 30032-0) Nitrite, UA (test Negative Negative code = 5802-4) Leukocytes, UA (test Small Negative A code = 5799-2) Urobilinogen, UA <1.0 0.2-1.0 (test code = 69456-2) RBC, UA (test code = 1 See_Comment [Autom ated 19449-3) message] The system which generated this result transmit alex reference range : /HPF. The reference range was not used to interpret this result as normal/abnormal . WBC, UA (test code = 49 See_Comment [Autom ated 5821-4) message] The system which generated this result transmit alex reference range : /HPF. The reference range was not used to interpret this result as normal/abnormal . Bacteria, UA (test Moderate code = 51174-4) Mucus (test code = Rare 8247-9) Squam Epithel, UA 1 See_Comment [Automate d (test code = 28609-1) messag e] The system which generated this result transmit alex reference range : /HPF. The reference range was not used to interpret this result as normal/abnormal . Specimen Source (test code = 2795) MITESH (test code = MITESH) Culture Manager ID - [auto]Culture Manager ID - tech Lab Interpretation Abnormal (test code = 21618-3) [facility] Reflex [facility] Culture 2022-01-10 05:15:30 Test Item Value Reference Range Interpretation Comments Color, UA (test code Yellow = 5778-6) Clarity, UA (test Hazy code = 5767-9) Specific [place], UA 1.014 1.001-1.035 (test code = 5811-5) pH, UA (test code = 6.0 5.0-8.0 5803-2) Protein, UA (test Negative Negative code = 20502-0) Glucose, UA (test >500 mg/dL Negative A code = 365) Ketones, UA (test Trace Negative A code = 2514-8) Bilirubin, UA (test Negative Negative code = 68762-8) Blood, UA (test code Negative Negative = 32284-2) Nitrite, UA (test Negative Negative code = 5802-4) Leukocytes, UA (test Small Negative A code = 5799-2) Urobilinogen, UA <1.0 0.2-1.0 (test code = 88716-4) RBC, UA (test code = 1 See_Comment [Autom ated 60367-3) message] The system which generated this result transmit alex reference range : /HPF. The reference range was not used to interpret this result as normal/abnormal . WBC, UA (test code = 49 See_Comment [Autom ated 5821-4) message] The system which generated this result transmit alex reference range : /HPF. The reference range was not used to interpret this result as normal/abnormal . Bacteria, UA (test Moderate code = 07096-1) Mucus (test code = Rare 8247-9) Squam Epithel, UA 1 See_Comment [Automate d (test code = 13471-2) messag e] The system which generated this result transmit alex reference range : /HPF. The reference range was not used to interpret this result as normal/abnormal . Specimen Source (test code = 2795) MITESH (test code = MITESH) Culture Manager ID - [auto]Culture Manager ID - tech Lab Interpretation Abnormal (test code = 23386-8) [facility]lex [facility] Culture 2022-01-10 05:15:30 Test Item Value Reference Range Interpretation Comments Color, UA (test code Yellow = 5778-6) Clarity, UA (test Hazy code = 5767-9) Specific [place], UA 1.014 1.001-1.035 (test code = 5811-5) pH, UA (test code = 6.0 5.0-8.0 5803-2) Protein, UA (test Negative Negative code = 65125-8) Glucose, UA (test >500 mg/dL Negative A code = 365) Ketones, UA (test Trace Negative A code = 2514-8) Bilirubin, UA (test Negative Negative code = 60651-1) Blood, UA (test code Negative Negative = 16920-7) Nitrite, UA (test Negative Negative code = 5802-4) Leukocytes, UA (test Small Negative A code = 5799-2) Urobilinogen, UA <1.0 0.2-1.0 (test code = 53830-9) RBC, UA (test code = 1 See_Comment [Autom ated 21545-1) message] The system which generated this result transmit alex reference range : /HPF. The reference range was not used to interpret this result as normal/abnormal . WBC, UA (test code = 49 See_Comment [Autom ated 5821-4) message] The system which generated this result transmit alex reference range : /HPF. The reference range was not used to interpret this result as normal/abnormal . Bacteria, UA (test Moderate code = 08998-3) Mucus (test code = Rare 8247-9) Squam Epithel, UA 1 See_Comment [Automate d (test code = 31542-3) messag e] The system which generated this result transmit alex reference range : /HPF. The reference range was not used to interpret this result as normal/abnormal . Specimen Source (test code = 2795) MITESH (test code = MITESH) Culture Manager ID - [auto]Culture Manager ID - tech Lab Interpretation Abnormal (test code = 60658-4) [facility] Reflex [facility] Culture 2022-01-10 05:15:30 Test Item Value Reference Range Interpretation Comments Color, UA (test code Yellow = 5778-6) Clarity, UA (test Hazy code = 5767-9) Specific [place], UA 1.014 1.001-1.035 (test code = 5811-5) pH, UA (test code = 6.0 5.0-8.0 5803-2) Protein, UA (test Negative Negative code = 99420-2) Glucose, UA (test >500 mg/dL Negative A code = 365) Ketones, UA (test Trace Negative A code = 2514-8) Bilirubin, UA (test Negative Negative code = 02756-4) Blood, UA (test code Negative Negative = 60257-4) Nitrite, UA (test Negative Negative code = 5802-4) Leukocytes, UA (test Small Negative A code = 5799-2) Urobilinogen, UA <1.0 0.2-1.0 (test code = 26513-3) RBC, UA (test code = 1 See_Comment [Autom ated 07360-9) message] The system which generated this result transmit alex reference range : /HPF. The reference range was not used to interpret this result as normal/abnormal . WBC, UA (test code = 49 See_Comment [Autom ated 5821-4) message] The system which generated this result transmit alex reference range : /HPF. The reference range was not used to interpret this result as normal/abnormal . Bacteria, UA (test Moderate code = 84387-4) Mucus (test code = Rare 8247-9) Squam Epithel, UA 1 See_Comment [Automate d (test code = 42482-7) messag e] The system which generated this result transmit alex reference range : /HPF. The reference range was not used to interpret this result as normal/abnormal . Specimen Source (test code = 2795) MITESH (test code = MITESH) Culture Manager ID - [auto]Culture Manager ID - tech Lab Interpretation Abnormal (test code = 11794-4) [facility] Reflex [facility] Culture 2022-01-10 05:15:30 Test Item Value Reference Range Interpretation Comments Color, UA (test code Yellow = 5778-6) Clarity, UA (test Hazy code = 5767-9) Specific [place], UA 1.014 1.001-1.035 (test code = 5811-5) pH, UA (test code = 6.0 5.0-8.0 5803-2) Protein, UA (test Negative Negative code = 70556-1) Glucose, UA (test >500 mg/dL Negative A code = 365) Ketones, UA (test Trace Negative A code = 2514-8) Bilirubin, UA (test Negative Negative code = 68101-5) Blood, UA (test code Negative Negative = 77747-4) Nitrite, UA (test Negative Negative code = 5802-4) Leukocytes, UA (test Small Negative A code = 5799-2) Urobilinogen, UA <1.0 0.2-1.0 (test code = 18754-8) RBC, UA (test code = 1 See_Comment [Autom ated 31217-1) message] The system which generated this result transmit alex reference range : /HPF. The reference range was not used to interpret this result as normal/abnormal . WBC, UA (test code = 49 See_Comment [Autom ated 5821-4) message] The system which generated this result transmit alex reference range : /HPF. The reference range was not used to interpret this result as normal/abnormal . Bacteria, UA (test Moderate code = 45867-6) Mucus (test code = Rare 8247-9) Squam Epithel, UA 1 See_Comment [Automate d (test code = 50446-0) messag e] The system which generated this result transmit alex reference range : /HPF. The reference range was not used to interpret this result as normal/abnormal . Specimen Source (test code = 2795) MITESH (test code = MITESH) Culture Manager ID - [auto]Culture Manager ID - tech Lab Interpretation Abnormal (test code = 77417-4) [facility] Reflex [facility] Culture 2022-01-10 05:15:30 Test Item Value Reference Range Interpretation Comments Color, UA (test code Yellow = 5778-6) Clarity, UA (test Hazy code = 5767-9) Specific [place], UA 1.014 1.001-1.035 (test code = 5811-5) pH, UA (test code = 6.0 5.0-8.0 5803-2) Protein, UA (test Negative Negative code = 51588-8) Glucose, UA (test >500 mg/dL Negative A code = 365) Ketones, UA (test Trace Negative A code = 2514-8) Bilirubin, UA (test Negative Negative code = 29337-2) Blood, UA (test code Negative Negative = 61474-6) Nitrite, UA (test Negative Negative code = 5802-4) Leukocytes, UA (test Small Negative A code = 5799-2) Urobilinogen, UA <1.0 0.2-1.0 (test code = 13038-5) RBC, UA (test code = 1 See_Comment [Autom ated 22557-7) message] The system which generated this result transmit alex reference range : /HPF. The reference range was not used to interpret this result as normal/abnormal . WBC, UA (test code = 49 See_Comment [Autom ated 5821-4) message] The system which generated this result transmit alex reference range : /HPF. The reference range was not used to interpret this result as normal/abnormal . Bacteria, UA (test Moderate code = 65690-0) Mucus (test code = Rare 8247-9) Squam Epithel, UA 1 See_Comment [Automate d (test code = 79959-5) messag e] The system which generated this result transmit alex reference range : /HPF. The reference range was not used to interpret this result as normal/abnormal . Specimen Source (test code = 2795) MITESH (test code = MITESH) Culture Manager ID - [auto]Culture Manager ID - tech Lab Interpretation Abnormal (test code = 84202-0) [facility] Culture 2022-01-10 05:15:30 Test Item Value Reference Range Interpretation Comments Color, UA (test code Yellow = 5778-6) Clarity, UA (test Hazy code = 5767-9) Specific [place], UA 1.014 1.001-1.035 (test code = 5811-5) pH, UA (test code = 6.0 5.0-8.0 5803-2) Protein, UA (test Negative Negative code = 69572-5) Glucose, UA (test >500 mg/dL Negative A code = 365) Ketones, UA (test Trace Negative A code = 2514-8) Bilirubin, UA (test Negative Negative code = 21732-1) Blood, UA (test code Negative Negative = 28738-0) Nitrite, UA (test Negative Negative code = 5802-4) Leukocytes, UA (test Small Negative A code = 5799-2) Urobilinogen, UA <1.0 0.2-1.0 (test code = 70418-6) RBC, UA (test code = 1 See_Comment [Autom ated 95380-5) message] The system which generated this result transmit alex reference range : /HPF. The reference range was not used to interpret this result as normal/abnormal . WBC, UA (test code = 49 See_Comment [Autom ated 5821-4) message] The system which generated this result transmit alex reference range : /HPF. The reference range was not used to interpret this result as normal/abnormal . Bacteria, UA (test Moderate code = 01416-0) Mucus (test code = Rare 8247-9) Squam Epithel, UA 1 See_Comment [Automate d (test code = 82505-2) messag e] The system which generated this result transmit alex reference range : /HPF. The reference range was not used to interpret this result as normal/abnormal . Specimen Source (test code = 2795) MITESH (test code = MITESH) Culture Manager ID - [auto]Culture Manager ID - tech Lab Interpretation Abnormal (test code = 72729-0) [facility] Reflex [facility] Culture 2022-01-10 05:15:30 Test Item Value Reference Range Interpretation Comments Color, UA (test code Yellow = 5778-6) Clarity, UA (test Hazy code = 5767-9) Specific [place], UA 1.014 1.001-1.035 (test code = 5811-5) pH, UA (test code = 6.0 5.0-8.0 5803-2) Protein, UA (test Negative Negative code = 47353-7) Glucose, UA (test >500 mg/dL Negative A code = 365) Ketones, UA (test Trace Negative A code = 2514-8) Bilirubin, UA (test Negative Negative code = 52862-3) Blood, UA (test code Negative Negative = 03233-3) Nitrite, UA (test Negative Negative code = 5802-4) Leukocytes, UA (test Small Negative A code = 5799-2) Urobilinogen, UA <1.0 0.2-1.0 (test code = 48628-2) RBC, UA (test code = 1 See_Comment [Autom ated 62143-0) message] The system which generated this result transmit alex reference range : /HPF. The reference range was not used to interpret this result as normal/abnormal . WBC, UA (test code = 49 See_Comment [Autom ated 5821-4) message] The system which generated this result transmit alex reference range : /HPF. The reference range was not used to interpret this result as normal/abnormal . Bacteria, UA (test Moderate code = 10538-1) Mucus (test code = Rare 8247-9) Squam Epithel, UA 1 See_Comment [Automate d (test code = 07411-0) messag e] The system which generated this result transmit alex reference range : /HPF. The reference range was not used to interpret this result as normal/abnormal . Specimen Source (test code = 2795) MITESH (test code = MITESH) Culture Manager ID - [auto]Culture Manager ID - tech Lab Interpretation Abnormal (test code = 97422-9) [facility] Reflex [facility] Culture 2022-01-10 05:15:30 Test Item Value Reference Range Interpretation Comments Color, UA (test code Yellow = 5778-6) Clarity, UA (test Hazy code = 5767-9) Specific [place], UA 1.014 1.001-1.035 (test code = 5811-5) pH, UA (test code = 6.0 5.0-8.0 5803-2) Protein, UA (test Negative Negative code = 60840-9) Glucose, UA (test >500 mg/dL Negative A code = 365) Ketones, UA (test Trace Negative A code = 2514-8) Bilirubin, UA (test Negative Negative code = 33887-3) Blood, UA (test code Negative Negative = 25212-8) Nitrite, UA (test Negative Negative code = 5802-4) Leukocytes, UA (test Small Negative A code = 5799-2) Urobilinogen, UA <1.0 0.2-1.0 (test code = 27882-1) RBC, UA (test code = 1 See_Comment [Autom ated 62484-7) message] The system which generated this result transmit alex reference range : /HPF. The reference range was not used to interpret this result as normal/abnormal . WBC, UA (test code = 49 See_Comment [Autom ated 5821-4) message] The system which generated this result transmit alex reference range : /HPF. The reference range was not used to interpret this result as normal/abnormal . Bacteria, UA (test Moderate code = 69667-7) Mucus (test code = Rare 8247-9) Squam Epithel, UA 1 See_Comment [Automate d (test code = 58246-3) messag e] The system which generated this result transmit alex reference range : /HPF. The reference range was not used to interpret this result as normal/abnormal . Specimen Source (test code = 2795) MITESH (test code = MITESH) Culture Manager ID - [auto]Culture Manager ID - tech Lab Interpretation Abnormal (test code = 06754-0) [facility]lex [facility] Culture 2022-01-10 05:15:30 Test Item Value Reference Range Interpretation Comments Color, UA (test code Yellow = 5778-6) Clarity, UA (test Hazy code = 5767-9) Specific [place], UA 1.014 1.001-1.035 (test code = 5811-5) pH, UA (test code = 6.0 5.0-8.0 5803-2) Protein, UA (test Negative Negative code = 31825-8) Glucose, UA (test >500 mg/dL Negative A code = 365) Ketones, UA (test Trace Negative A code = 2514-8) Bilirubin, UA (test Negative Negative code = 59146-9) Blood, UA (test code Negative Negative = 93077-0) Nitrite, UA (test Negative Negative code = 5802-4) Leukocytes, UA (test Small Negative A code = 5799-2) Urobilinogen, UA <1.0 0.2-1.0 (test code = 03159-7) RBC, UA (test code = 1 See_Comment [Autom ated 21712-5) message] The system which generated this result transmit alex reference range : /HPF. The reference range was not used to interpret this result as normal/abnormal . WBC, UA (test code = 49 See_Comment [Autom ated 5821-4) message] The system which generated this result transmit alex reference range : /HPF. The reference range was not used to interpret this result as normal/abnormal . Bacteria, UA (test Moderate code = 13530-6) Mucus (test code = Rare 8247-9) Squam Epithel, UA 1 See_Comment [Automate d (test code = 69887-0) messag e] The system which generated this result transmit alex reference range : /HPF. The reference range was not used to interpret this result as normal/abnormal . Specimen Source (test code = 2795) MITESH (test code = MITESH) Culture Manager ID - [auto]Culture Manager ID - tech Lab Interpretation Abnormal (test code = 77412-3) [facility] UR[facility] [id number] 05:15:30 Test Item Value Reference Range Interpretation [...] = 516) SOURCE(BEAKER) (test code = 2795) Culture Manager ID - [auto]Culture Manager ID - techPOCT-GLUCOSE [id number] 04:16:17 Test Item Value Reference Range Interpretation Comments POC-GLUCOSE METER 241 mg/dL 70-110 H : [place] [address] (BEAKER) (test code [facility], = 1538) [place] [address]: Culture Manager/Techni vic ID = [id number] for Alfredo Haq HEMOGLOBIN [id number] 03:57:40 Test Item Value Reference Range Interpretation Comments HEMOGLOBIN A1C (BEAKER) (test code = > % 4.3-6.1 H 368) Culture Manager ID - ZCHRISOperator ID - ZCHRISLIPID [id number] 03:25:34 Test Item Value Reference Range Interpretation Comments TRIGLYCERIDES (BEAKER) (test code = 107 mg/dL 540) CHOLESTEROL (BEAKER) (test code = 189 mg/dL 631) HDL CHOLESTEROL (BEAKER) (test code 62 mg/dL = 976) LDL CHOLESTEROL CALCULATED (BEAKER) 106 mg/dL (test code = 633) Triglyceride Reference Range: Low Risk <150 Borderline 150-199 High Risk 200- 499 Very High Risk >=500Cholesterol Reference Range: Low Risk <200 Borderline 200-239 High Risk >240HDL Cholesterol Reference Range: Low Risk >=60 High Risk <40LDL Cholesterol Reference Range: Optimal <100 Near Optimal 100-129 Borderline 130-159 High 160-189 Very High >=190 Culture Manager ID - ZCHRISPOCT-GLUCOSE [id number] 03:19:18 Test Item Value Reference Range Interpretation Comments POC-GLUCOSE METER 288 mg/dL 70-110 H : TESTED A T [facility] [address] (BEAKER) (test code [facility] [address] [facility], = 1538) [place] [address] 384: Culture Manager/Techni vic ID = [id number] for Alfredo Haq [id number] 02:16:03 Test Item Value Reference Range Interpretation [...] for patients with mechanical heart valves.BASIC METABOLIC [id number] 02:13:55 Test Item Value Reference Range Interpretation [...] TO CALCULA TE ESTIMATED GFR. COMPREHENSIVE METABOLIC [id number] 02:13:44 Test Item Value Reference Range Interpretation [...] 1092) DATA TO CALCULA TE ESTIMATED GFR. Culture Manager ID - [id number] 02:08:21 Test Item Value Reference Range Interpretation Comments TRIGLYCERIDES (BEAKER) (test code = 108 mg/dL 540) TRIGLYCERIDE REFERENCE RANGELow Risk <150Borderline Risk 150-199High Risk 200-499Very High Risk >=500Operator ID - [id number] 02:08:21 Test Item Value Reference Range Interpretation Comments AMYLASE (BEAKER) (test code = 349) 83 U/L 30-110 Culture Manager ID - [id number] 02:08:21 Test Item Value Reference Range Interpretation Comments LIPASE (BEAKER) (test code = 749) 42 U/L 8-78 Culture Manager ID - [id number] 02:08:20 Test Item Value Reference Range Interpretation Comments MAGNESIUM (BEAKER) (test code = 1.8 mg/dL 1.5-3.0 627) Culture Manager ID - [id number] 02:08:20 Test Item Value Reference Range Interpretation Comments PHOSPHORUS (BEAKER) (test code = 2.6 mg/dL 2.5-4.5 604) Culture Manager ID - SHARONDATROPONIN [id number] 02:01:00 Test Item Value Reference Range Interpretation [...] failure, acidosis, acute neurological disease, and persistent tachyarrhythmia.Culture Manager ID - SHARONDALACTIC ACID, VENOUS 2022-01-10 01:53:30 Test Item Value Reference Range Interpretation Comments LACTATE BLOOD VENOUS (2) (BEAKER) 0.72 mmol/L 0.50-2.20 (test code = 2872) Culture Manager ID - SHARONDACALCIUM, [id number] 01:45:52 Test Item Value Reference Range Interpretation Comments CALCIUM IONIZED (BEAKER) (test 1.12 mmol/L 1.12-1.27 code = 698) PH, BLOOD (BEAKER) (test code = 7.39 1810) KETONE, [id number] 01:45:45 Test Item Value Reference Range Interpretation Comments KETONES, BLOOD (BEAKER) (test code 0.5 mmol/L <0.4 H = 1103) CBC W/PLT COUNT & AUTO [id number] 01:42:51 Test Item Value Reference Range Interpretation [...] (BEAKER) (test code = 2801) U/S, ABDOMINAL, [id number] 01:40:00Abdomen limited area? Add comment if clarification is needed.->Right upper quadrantReason for exam:->Elevated LFTsCHI [facility]AD [facility]: [facility]ARCIA : 1960 Sex: FFINAL REPORT [...] of acute cholecystitis or cholelithiasis. Signed: Jai Goodrich MDReport Verified Date/Time: 01/10/2022 01:40:35 POCT-GLUCOSE [id number] 01:25:18 Test Item Value Reference Range Interpretation Comments POC-GLUCOSE METER 347 mg/dL 70-110 H : TESTED A T [facility] [address] (BEAKER) (test code [facility], = 1538) [place] [address] 384: Culture Manager/Techni vic ID = [id number] for Alfredo Haq SCR MAMM BILATERAL GUERLINE CAD [id number] 13:33:01 Name: Geremias : 1960 Sex: F* - SCR MAMM BILATERAL GUERLINE CAD DIGITALBILATERAL DIGITAL SCREENING MAMMOGRAM 3D/2D WITH CAD: 12/04/2021LINICAL: Asymptomatic. Digital breast tomosynthesis was performed in addition to routine CC and MLO views. Current mammographic images were evaluated by [employer] CAD (computer-aided detection) software. Comparison is made to examsdated 08/22/2020 mammogram, 02/09/2018 mammogram, and 12/14/2016 mammogram - [facility]. There are scattered fibroglandular tissues in both breasts. No suspicious mass, architectural distortion, malignant type calcification, or lymph node abnormality detected. Breast architecture is stable compared to prior exams.IMPRESSION: NEGATIVEThere is no mammographic evidence of malignancy. Resume annual screening mammography in one year. Lance Fofana M.D. et/penrad:12/04/2021 13:33:01 Sales Operations Assistant: Jacqueline Hernandez MM, [facility] Mammographyletter sent: BIRADS 1-2 Normal Mammogram BI-RADS: 1 NegativeCOMPREHENSIVE METABOLIC [id number] 02:45:49 Test Item Value Reference Range Interpretation Comments GLUCOSE (test code = 683 MG/DL 70-99 HH 2216) BUN (test code = 14 MG/DL 03-01) CREATININE (test 0.61 MG/DL 0.60-1.30 code = 2213) eGFR (2020 CKD-EPI) 103 >60 (test code = 27245) ML/MIN/1.73 CALC BUN/CREAT (test 23 RATIO - code = 2235) SODIUM (test code = 130 MEQ/L 133-146 L 2230) POTASSIUM (test code 4.5 MEQ/L 3.5-5.4 = 222) CHLORIDE (test code 93 MEQ/L 95-107 L = 2215) CARBON DIOXIDE (test 21 MEQ/L 19-31 code = 2206) CALCIUM (test code = 8.7 MG/DL 8.5-10.5 2208) PROTEIN, TOTAL (test 6.4 G/DL 6.1-8.3 code = 2229) ALBUMIN (test code = 4.0 G/DL 3.5-5.2 2200) CALC GLOBULIN (test 2.4 G/DL 1.9-3.7 code = 2240) CALC A/G RATIO (test 1.7 RATIO 1.0-2.6 code = 2234) BILIRUBIN, TOTAL 0.2 MG/DL See_Comment [Automated message] (test code = 220) The syste m which generated this result transmit alex reference range : <=1.2. The refe rence range was not u sed to interpret th is result as normal/abnormal . ALKALINE PHOSPHATASE 113 U/L 40-136 (test code = 220) AST (test code = 17 U/L 9-40 2217) ALT (test code = 21 U/L 5-40 2218) LIPID [id number] 02:45:49 Test Item Value Reference Range Interpretation [...] MOREINFORMATION , SEE CLIENT ANNOUNCE MENT AT [email or web address] RISK RATIO LDL/HDL 2.16 RATIO <3.22 UNLESS O THERWISE (test code = 2238) INDICATED , ALL TESTING PERFORMED [facility], [address] [place] [address] H[place]G [place]U DIRECTOR: LETICIA MARROQUIN M.D. CLIA NUMBER [id number] [facility] ACCREDITATION N O. [id number] COMPREHENSIVE METABOLIC [id number] 00:00:00 Test Item Value Reference Range Interpretation Comments GLUCOSE (test code = 2217) 683 MG/DL BUN (test code = 2208) 14 MG/DL CREATININE (test code = 2214) 0.61 MG/DL eGFR (2020 CKD-EPI) (test 103 ML/MIN/1.73 code = 69364) CALC BUN/CREAT (test code = 23 RATIO 2235) SODIUM (test code = 2231) 130 MEQ/L POTASSIUM (test code = 2228) 4.5 MEQ/L CHLORIDE (test code = 2215) 93 MEQ/L CARBON DIOXIDE (test code = 21 MEQ/L 2205) CALCIUM (test code = 2209) 8.7 MG/DL PROTEIN, TOTAL (test code = 6.4 G/DL 2228) ALBUMIN (test code = 2201) 4.0 G/DL CALC GLOBULIN (test code = 2.4 G/DL 2239) CALC A/G RATIO (test code = 1.7 RATIO 2234) BILIRUBIN, TOTAL (test code = 0.2 MG/DL 2206) ALKALINE PHOSPHATASE (test 113 U/L code = 2204) AST (test code = 2218) 17 U/L ALT (test code = 2219) 21 U/L COMPREHENSIVE METABOLIC [id number] 00:00:00 Test Item Value Reference Range Interpretation Comments GLUCOSE (test code = 2217) 683 MG/DL BUN (test code = 2208) 14 MG/DL CREATININE (test code = 2214) 0.61 MG/DL eGFR (2020 CKD-EPI) (test 103 ML/MIN/1.73 code = 55024) CALC BUN/CREAT (test code = 23 RATIO [...] (test code = 2219) 21 U/L LIPID [id number] 00:00:00 Test Item Value Reference Range Interpretation Comments CHOLESTEROL (test code = 2210) 225 MG/DL TRIGLYCERIDES (test code = 2232) 337 MG/DL HDL CHOLESTEROL (test code = 2220) 56 MG/DL CALC LDL CHOL (test code = 2237) 121 MG/DL RISK RATIO LDL/HDL (test code = 2.16 RATIO 2238) LIPID [id number] 00:00:00 Test Item Value Reference Range Interpretation Comments CHOLESTEROL (test code = 2210) 225 MG/DL TRIGLYCERIDES (test code = 2232) 337 MG/DL HDL CHOLESTEROL (test code = 2220) 56 MG/DL CALC LDL CHOL (test code = 2237) 121 MG/DL RISK RATIO LDL/HDL (test code = 2.16 RATIO 2238) COMPREHENSIVE METABOLIC [id number] 00:00:00 Test Item Value Reference Range Interpretation Comments GLUCOSE (test code = 2217) 683 MG/DL BUN (test code = 2208) 14 MG/DL CREATININE (test code = 2214) 0.61 MG/DL eGFR (2020 CKD-EPI) (test 103 ML/MIN/1.73 code = 22566) CALC BUN/CREAT (test code = 23 RATIO 2235) SODIUM (test code = 2231) 130 MEQ/L POTASSIUM (test code = 2228) 4.5 MEQ/L CHLORIDE (test code = 2215) 93 MEQ/L CARBON DIOXIDE (test code = 21 MEQ/L 2205) CALCIUM (test code = 2209) 8.7 MG/DL PROTEIN, TOTAL (test code = 6.4 G/DL 2228) ALBUMIN (test code = 2201) 4.0 G/DL CALC GLOBULIN (test code = 2.4 G/DL 2240) CALC A/G RATIO (test code = 1.7 RATIO 2234) BILIRUBIN, TOTAL (test code = 0.2 MG/DL 2207) ALKALINE PHOSPHATASE (test 113 U/L code = 2204) AST (test code = 2218) 17 U/L ALT (test code = 2219) 21 U/L COMPREHENSIVE METABOLIC [id number] 00:00:00 Test Item Value Reference Range Interpretation Comments GLUCOSE (test code = 2217) 683 MG/DL BUN (test code = 2208) 14 MG/DL CREATININE (test code = 2214) 0.61 MG/DL eGFR (2020 CKD-EPI) (test 103 ML/MIN/1.73 code = 64248) CALC BUN/CREAT (test code = 23 RATIO [...] (test code = 2219) 21 U/L LIPID [id number] 00:00:00 Test Item Value Reference Range Interpretation Comments CHOLESTEROL (test code = 2210) 225 MG/DL TRIGLYCERIDES (test code = 2232) 337 MG/DL HDL CHOLESTEROL (test code = 2220) 56 MG/DL CALC LDL CHOL (test code = 2237) 121 MG/DL RISK RATIO LDL/HDL (test code = 2.16 RATIO 2238) LIPID [id number] 00:00:00 Test Item Value Reference Range Interpretation Comments CHOLESTEROL (test code = 2210) 225 MG/DL TRIGLYCERIDES (test code = 2232) 337 MG/DL HDL CHOLESTEROL (test code = 2220) 56 MG/DL CALC LDL CHOL (test code = 2237) 121 MG/DL RISK RATIO LDL/HDL (test code = 2.16 RATIO 2238) COMPREHENSIVE METABOLIC [id number] 00:00:00 Test Item Value Reference Range Interpretation Comments GLUCOSE (test code = 2217) 683 MG/DL BUN (test code = 2208) 14 MG/DL CREATININE (test code = 2214) 0.61 MG/DL eGFR (2020 CKD-EPI) (test 103 ML/MIN/1.73 code = 69276) CALC BUN/CREAT (test code = 23 RATIO [...] code = 2219) 21 U/L COMPREHENSIVE METABOLIC [id number] 00:00:00 Test Item Value Reference Range Interpretation Comments GLUCOSE (test code = 2217) 683 MG/DL BUN (test code = 2208) 14 MG/DL CREATININE (test code = 2214) 0.61 MG/DL eGFR (2020 CKD-EPI) (test 103 ML/MIN/1.73 code = 45492) CALC BUN/CREAT (test code = 23 RATIO [...] code = 2219) 21 U/L COMPREHENSIVE METABOLIC [id number] 00:00:00 Test Item Value Reference Range Interpretation Comments GLUCOSE (test code = 2217) 683 MG/DL BUN (test code = 2208) 14 MG/DL CREATININE (test code = 2214) 0.61 MG/DL eGFR (2020 CKD-EPI) (test 103 ML/MIN/1.73 code = 41487) CALC BUN/CREAT (test code = 23 RATIO 2235) SODIUM (test code = 2231) 130 MEQ/L POTASSIUM (test code = 2228) 4.5 MEQ/L CHLORIDE (test code = 2215) 93 MEQ/L CARBON DIOXIDE (test code = 21 MEQ/L 2205) CALCIUM (test code = 2209) 8.7 MG/DL [...] (test code = 2219) 21 U/L LIPID [id number] 00:00:00 Test Item Value Reference Range Interpretation Comments CHOLESTEROL (test code = 2210) 225 MG/DL TRIGLYCERIDES (test code = 2232) 337 MG/DL HDL CHOLESTEROL (test code = 2220) 56 MG/DL CALC LDL CHOL (test code = 2237) 121 MG/DL RISK RATIO LDL/HDL (test code = 2.16 RATIO 2238) LIPID [id number] 00:00:00 Test Item Value Reference Range Interpretation Comments CHOLESTEROL (test code = 2210) 225 MG/DL TRIGLYCERIDES (test code = 2232) 337 MG/DL HDL CHOLESTEROL (test code = 2220) 56 MG/DL CALC LDL CHOL (test code = 2237) 121 MG/DL RISK RATIO LDL/HDL (test code = 2.16 RATIO 2238) COMPREHENSIVE METABOLIC [id number] 00:00:00 Test Item Value Reference Range Interpretation Comments GLUCOSE (test code = 2217) 683 MG/DL BUN (test code = 2208) 14 MG/DL CREATININE (test code = 2214) 0.61 MG/DL eGFR (2020 CKD-EPI) (test 103 ML/MIN/1.73 code = 82195) CALC BUN/CREAT (test code = 23 RATIO [...] code = 2219) 21 U/L COMPREHENSIVE METABOLIC [id number] 00:00:00 Test Item Value Reference Range Interpretation Comments GLUCOSE (test code = 2217) 683 MG/DL BUN (test code = 2208) 14 MG/DL CREATININE (test code = 2214) 0.61 MG/DL eGFR (2020 CKD-EPI) (test 103 ML/MIN/1.73 code = 52549) CALC BUN/CREAT (test code = 23 RATIO [...] code = 2219) 21 U/L COMPREHENSIVE METABOLIC [id number] 00:00:00 Test Item Value Reference Range Interpretation Comments GLUCOSE (test code = 2217) 683 MG/DL BUN (test code = 2208) 14 MG/DL CREATININE (test code = 2214) 0.61 MG/DL eGFR (2020 CKD-EPI) (test 103 ML/MIN/1.73 code = 20821) CALC BUN/CREAT (test code = 23 RATIO 2235) SODIUM (test code = 2231) 130 MEQ/L POTASSIUM (test code = 2228) 4.5 MEQ/L CHLORIDE (test code = 2215) 93 MEQ/L CARBON DIOXIDE (test code = 21 MEQ/L 2205) CALCIUM (test code = 2209) 8.7 MG/DL [...] (test code = 2219) 21 U/L LIPID [id number] 00:00:00 Test Item Value Reference Range Interpretation Comments CHOLESTEROL (test code = 2210) 225 MG/DL TRIGLYCERIDES (test code = 2232) 337 MG/DL HDL CHOLESTEROL (test code = 2220) 56 MG/DL CALC LDL CHOL (test code = 2237) 121 MG/DL RISK RATIO LDL/HDL (test code = 2.16 RATIO 2238) LIPID [id number] 00:00:00 Test Item Value Reference Range Interpretation Comments CHOLESTEROL (test code = 2210) 225 MG/DL TRIGLYCERIDES (test code = 2232) 337 MG/DL HDL CHOLESTEROL (test code = 2220) 56 MG/DL CALC LDL CHOL (test code = 2237) 121 MG/DL RISK RATIO LDL/HDL (test code = 2.16 RATIO 2238) LIPID [id number] 00:00:00 Test Item Value Reference Range Interpretation Comments CHOLESTEROL (test code = 2210) 225 MG/DL TRIGLYCERIDES (test code = 2232) 337 MG/DL HDL CHOLESTEROL (test code = 2220) 56 MG/DL CALC LDL CHOL (test code = 2237) 121 MG/DL RISK RATIO LDL/HDL (test code = 2.16 RATIO 2238) LIPID [id number] 00:00:00 Test Item Value Reference Range Interpretation Comments CHOLESTEROL (test code = 2210) 225 MG/DL TRIGLYCERIDES (test code = 2232) 337 MG/DL HDL CHOLESTEROL (test code = 2220) 56 MG/DL CALC LDL CHOL (test code = 2237) 121 MG/DL RISK RATIO LDL/HDL (test code = 2.16 RATIO 2238) COMPREHENSIVE METABOLIC [id number] 00:00:00 Test Item Value Reference Range Interpretation Comments GLUCOSE (test code = 2217) 683 MG/DL BUN (test code = 2208) 14 MG/DL CREATININE (test code = 2214) 0.61 MG/DL eGFR (2020 CKD-EPI) (test 103 ML/MIN/1.73 code = 22067) CALC BUN/CREAT (test code = 23 RATIO 2235) SODIUM (test code = 2231) 130 MEQ/L POTASSIUM (test code = 2228) 4.5 MEQ/L CHLORIDE (test code = 2215) 93 MEQ/L CARBON DIOXIDE (test code = 21 MEQ/L 2205) CALCIUM (test code = 2209) 8.7 MG/DL [...] code = 2219) 21 U/L COMPREHENSIVE METABOLIC [id number] 00:00:00 Test Item Value Reference Range Interpretation Comments GLUCOSE (test code = 2217) 683 MG/DL BUN (test code = 2208) 14 MG/DL CREATININE (test code = 2214) 0.61 MG/DL eGFR (2020 CKD-EPI) (test 103 ML/MIN/1.73 code = 39911) CALC BUN/CREAT (test code = 23 RATIO 2235) SODIUM (test code = 2231) 130 MEQ/L POTASSIUM (test code = 2228) 4.5 MEQ/L CHLORIDE (test code = 2215) 93 MEQ/L CARBON DIOXIDE (test code = 21 MEQ/L 2205) CALCIUM (test code = 2209) 8.7 MG/DL PROTEIN, TOTAL (test code = 6.4 G/DL 2228) ALBUMIN (test code = 2201) 4.0 G/DL CALC GLOBULIN (test code = 2.4 G/DL 2239) CALC A/G RATIO (test code = 1.7 RATIO 2233) BILIRUBIN, TOTAL (test code = 0.2 MG/DL 2206) ALKALINE PHOSPHATASE (test 113 U/L code = 2204) AST (test code = 2218) 17 U/L ALT (test code = 2219) 21 U/L LIPID [id number] 00:00:00 Test Item Value Reference Range Interpretation Comments CHOLESTEROL (test code = 2210) 225 MG/DL TRIGLYCERIDES (test code = 2232) 337 MG/DL HDL CHOLESTEROL (test code = 2220) 56 MG/DL CALC LDL CHOL (test code = 2237) 121 MG/DL RISK RATIO LDL/HDL (test code = 2.16 RATIO 2238) LIPID [id number] 00:00:00 Test Item Value Reference Range Interpretation Comments CHOLESTEROL (test code = 2210) 225 MG/DL TRIGLYCERIDES (test code = 2232) 337 MG/DL HDL CHOLESTEROL (test code = 2220) 56 MG/DL CALC LDL CHOL (test code = 2237) 121 MG/DL RISK RATIO LDL/HDL (test code = 2.16 RATIO 2238) HEMOGLOBIN [id number] 05:20:09 Test Item Value Reference Range Interpretation Comments HEMOGLOBIN A1c >15.5 % 4.2-5.6 H [facility] (test code = 28028) ASSOCIAT ION GUIDELINES FOR HGB A1C: PREDIABETES/INC [...] ATE TESTING OR LABORATORY C ONSULTATION. HEMOGLOBIN [id number] 00:00:00 Test Item Value Reference Range Interpretation Comments HEMOGLOBIN A1c (test code = 96512) >15.5 % HEMOGLOBIN [id number] 00:00:00 Test Item Value Reference Range Interpretation Comments HEMOGLOBIN A1c (test code = 42126) >15.5 % HEMOGLOBIN [id number] 00:00:00 Test Item Value Reference Range Interpretation Comments HEMOGLOBIN A1c (test code = 04835) >15.5 % HEMOGLOBIN [id number] 00:00:00 Test Item Value Reference Range Interpretation Comments HEMOGLOBIN A1c (test code = 73045) >15.5 % HEMOGLOBIN [id number] 00:00:00 Test Item Value Reference Range Interpretation Comments HEMOGLOBIN A1c (test code = 08584) >15.5 % HEMOGLOBIN [id number] 00:00:00 Test Item Value Reference Range Interpretation Comments HEMOGLOBIN A1c (test code = 50580) >15.5 % HEMOGLOBIN [id number] 00:00:00 Test Item Value Reference Range Interpretation Comments HEMOGLOBIN A1c (test code = 65046) >15.5 % HEMOGLOBIN [id number] 00:00:00 Test Item Value Reference Range Interpretation Comments HEMOGLOBIN A1c (test code = 20560) >15.5 % HEMOGLOBIN [id number] 00:00:00 Test Item Value Reference Range Interpretation Comments HEMOGLOBIN A1c (test code = 13669) >15.5 % HEMOGLOBIN [id number] 00:00:00 Test Item Value Reference Range Interpretation Comments HEMOGLOBIN A1c (test code = 22969) >15.5 % HEMOGLOBIN [id number] 00:00:00 Test Item Value Reference Range Interpretation Comments HEMOGLOBIN A1c (test code = 65014) >15.5 % HEMOGLOBIN [id number] 00:00:00 Test Item Value Reference Range Interpretation Comments HEMOGLOBIN A1c (test code = 17037) >15.5 % HEMOGLOBIN [id number] 00:00:00 Test Item Value Reference Range Interpretation Comments HEMOGLOBIN A1c (test code = 04584) >15.5 % HEMOGLOBIN [id number] 00:00:00 Test Item Value Reference Range Interpretation Comments HEMOGLOBIN A1c (test code = 10237) >15.5 % HEMOGLOBIN [id number] 00:00:00 Test Item Value Reference Range Interpretation Comments HEMOGLOBIN A1c (test code = 58085) >15.5 % HEMOGLOBIN [id number] 00:00:00 Test Item Value Reference Range Interpretation Comments HEMOGLOBIN A1c (test code = 31970) >15.5 % HEMOGLOBIN [id number] 00:00:00 Test Item Value Reference Range Interpretation Comments HEMOGLOBIN A1c (test code = 94546) >15.5 % HEMOGLOBIN [id number] 00:00:00 Test Item Value Reference Range Interpretation Comments HEMOGLOBIN A1c (test code = 19769) >15.5 % COMPREHENSIVE METABOLIC [id number] 00:00:00 Test Item Value Reference Range Interpretation Comments GLUCOSE (test code = 2217) 362 MG/DL BUN (test code = 2208) 10 MG/DL CREATININE (test code = 2214) 0.65 MG/DL eGFR AMER. (test code 113 ML/MIN/1.73 = 13299) eGFR NON- AMER. (test 98 ML/MIN/1.73 code = 81973) CALC BUN/CREAT (test code = 15 RATIO 2235) SODIUM (test code = 2231) 138 MEQ/L POTASSIUM (test code = 2228) 4.7 MEQ/L CHLORIDE (test code = 2215) 101 MEQ/L CARBON DIOXIDE (test code = 27 MEQ/L 6) CALCIUM (test code = 2209) 9.8 MG/DL [...] code = 2219) 14 U/L COMPREHENSIVE METABOLIC [id number] 00:00:00 Test Item Value Reference Range Interpretation Comments GLUCOSE (test code = 2217) 362 MG/DL BUN (test code = 2208) 10 MG/DL CREATININE (test code = 2214) 0.65 MG/DL eGFR AMER. (test code 113 ML/MIN/1.73 = 85968) eGFR NON- AMER. (test 98 ML/MIN/1.73 code = 66452) CALC BUN/CREAT (test code = 15 RATIO 2235) SODIUM (test code = 2231) 138 MEQ/L POTASSIUM (test code = 2228) 4.7 MEQ/L CHLORIDE (test code = 2215) 101 MEQ/L CARBON DIOXIDE (test code = 27 MEQ/L 220) CALCIUM (test code = 2209) 9.8 MG/DL PROTEIN, TOTAL (test code = 7.0 G/DL 222) ALBUMIN (test code = 2201) 4.5 G/DL CALC GLOBULIN (test code = 2.5 G/DL 2240) CALC A/G RATIO (test code = 1.8 RATIO 2234) BILIRUBIN, TOTAL (test code = 0.8 MG/DL 220) ALKALINE PHOSPHATASE (test 89 U/L code = 2204) AST (test code = 2218) 14 U/L ALT (test code = 2219) 14 U/L CBC W/AUTO [id number] 00:00:00 Test Item Value Reference Range Interpretation [...] code = 1015) 241 K/UL CBC W/AUTO [id number] 00:00:00 Test Item Value Reference Range Interpretation [...] code = 1015) 241 K/UL CBC W/AUTO [id number] 00:00:00 Test Item Value Reference Range Interpretation [...] (test code = 1015) 241 K/UL LIPID [id number] 00:00:00 Test Item Value Reference Range Interpretation Comments CHOLESTEROL (test code = 2210) 223 MG/DL TRIGLYCERIDES (test code = 2232) 152 MG/DL HDL CHOLESTEROL (test code = 2220) 62 MG/DL CALC LDL CHOL (test code = 2237) 133 MG/DL RISK RATIO LDL/HDL (test code = 2.15 RATIO 2238) LIPID [id number] 00:00:00 Test Item Value Reference Range Interpretation Comments CHOLESTEROL (test code = 2210) 223 MG/DL TRIGLYCERIDES (test code = 2232) 152 MG/DL HDL CHOLESTEROL (test code = 2220) 62 MG/DL CALC LDL CHOL (test code = 2237) 133 MG/DL RISK RATIO LDL/HDL (test code = 2.15 RATIO 2238) HEMOGLOBIN [id number] 00:00:00 Test Item Value Reference Range Interpretation Comments HEMOGLOBIN A1c (test code = 59499) 13.8 % HEMOGLOBIN [id number] 00:00:00 Test Item Value Reference Range Interpretation Comments HEMOGLOBIN A1c (test code = 51815) 13.8 % HEMOGLOBIN [id number] 00:00:00 Test Item Value Reference Range Interpretation Comments HEMOGLOBIN A1c (test code = 90377) 13.8 % COMPREHENSIVE METABOLIC [id number] 00:00:00 Test Item Value Reference Range Interpretation Comments GLUCOSE (test code = 2217) 362 MG/DL BUN (test code = 2208) 10 MG/DL CREATININE (test code = 2214) 0.65 MG/DL eGFR AMER. (test code 113 ML/MIN/1.73 = 74359) eGFR NON- AMER. (test 98 ML/MIN/1.73 code = 95182) CALC BUN/CREAT (test code = 15 RATIO [...] code = 2219) 14 U/L COMPREHENSIVE METABOLIC [id number] 00:00:00 Test Item Value Reference Range Interpretation Comments GLUCOSE (test code = 2217) 362 MG/DL BUN (test code = 2208) 10 MG/DL CREATININE (test code = 2214) 0.65 MG/DL eGFR AMER. (test code 113 ML/MIN/1.73 = 24565) eGFR NON- AMER. (test 98 ML/MIN/1.73 code = 66384) CALC BUN/CREAT (test code = 15 RATIO 2234) SODIUM (test code = 2231) 138 MEQ/L [...] code = 2219) 14 U/L CBC W/AUTO [id number] 00:00:00 Test Item Value Reference Range Interpretation [...] code = 1015) 241 K/UL CBC W/AUTO [id number] 00:00:00 Test Item Value Reference Range Interpretation [...] code = 1015) 241 K/UL CBC W/AUTO [id number] 00:00:00 Test Item Value Reference Range Interpretation [...] (test code = 1015) 241 K/UL LIPID [id number] 00:00:00 Test Item Value Reference Range Interpretation Comments CHOLESTEROL (test code = 2210) 223 MG/DL TRIGLYCERIDES (test code = 2232) 152 MG/DL HDL CHOLESTEROL (test code = 2220) 62 MG/DL CALC LDL CHOL (test code = 2237) 133 MG/DL RISK RATIO LDL/HDL (test code = 2.15 RATIO 2238) LIPID [id number] 00:00:00 Test Item Value Reference Range Interpretation Comments CHOLESTEROL (test code = 2210) 223 MG/DL TRIGLYCERIDES (test code = 2232) 152 MG/DL HDL CHOLESTEROL (test code = 2220) 62 MG/DL CALC LDL CHOL (test code = 2237) 133 MG/DL RISK RATIO LDL/HDL (test code = 2.15 RATIO 2238) HEMOGLOBIN [id number] 00:00:00 Test Item Value Reference Range Interpretation Comments HEMOGLOBIN A1c (test code = 01521) 13.8 % HEMOGLOBIN [id number] 00:00:00 Test Item Value Reference Range Interpretation Comments HEMOGLOBIN A1c (test code = 81109) 13.8 % HEMOGLOBIN [id number] 00:00:00 Test Item Value Reference Range Interpretation Comments HEMOGLOBIN A1c (test code = 21161) 13.8 % COMPREHENSIVE METABOLIC [id number] 00:00:00 Test Item Value Reference Range Interpretation Comments GLUCOSE (test code = 2217) 362 MG/DL BUN (test code = 2208) 10 MG/DL CREATININE (test code = 2214) 0.65 MG/DL eGFR AMER. (test code 113 ML/MIN/1.73 = 63212) eGFR NON- AMER. (test 98 ML/MIN/1.73 code = 80740) CALC BUN/CREAT (test code = 15 RATIO 2235) SODIUM (test code = 2231) 138 MEQ/L POTASSIUM (test code = 2228) 4.7 MEQ/L CHLORIDE (test code = 2215) 101 MEQ/L CARBON DIOXIDE (test code = 27 MEQ/L 6) CALCIUM (test code = 2209) 9.8 MG/DL PROTEIN, TOTAL (test code = 7.0 G/DL 2229) ALBUMIN (test code = 2201) 4.5 G/DL CALC GLOBULIN (test code = 2.5 G/DL 2240) CALC A/G RATIO (test code = 1.8 RATIO 2234) BILIRUBIN, TOTAL (test code = 0.8 MG/DL 2207) ALKALINE PHOSPHATASE (test 89 U/L code = 2204) AST (test code = 2218) 14 U/L ALT (test code = 2219) 14 U/L COMPREHENSIVE METABOLIC [id number] 00:00:00 Test Item Value Reference Range Interpretation Comments GLUCOSE (test code = 2217) 362 MG/DL BUN (test code = 2208) 10 MG/DL CREATININE (test code = 2214) 0.65 MG/DL eGFR AMER. (test code 113 ML/MIN/1.73 = 51055) eGFR NON- AMER. (test 98 ML/MIN/1.73 code = 61931) CALC BUN/CREAT (test code = 15 RATIO 2235) SODIUM (test code = 2231) 138 MEQ/L POTASSIUM (test code = 2228) 4.7 MEQ/L CHLORIDE (test code = 2215) 101 MEQ/L CARBON DIOXIDE (test code = 27 MEQ/L 220) CALCIUM (test code = 2209) 9.8 MG/DL [...] code = 2219) 14 U/L COMPREHENSIVE METABOLIC [id number] 00:00:00 Test Item Value Reference Range Interpretation Comments GLUCOSE (test code = 2217) 362 MG/DL BUN (test code = 2208) 10 MG/DL CREATININE (test code = 2214) 0.65 MG/DL eGFR AMER. (test code 113 ML/MIN/1.73 = 15270) eGFR NON- AMER. (test 98 ML/MIN/1.73 code = 59670) CALC BUN/CREAT (test code = 15 RATIO [...] code = 2219) 14 U/L CBC W/AUTO [id number] 00:00:00 Test Item Value Reference Range Interpretation [...] code = 1015) 241 K/UL CBC W/AUTO [id number] 00:00:00 Test Item Value Reference Range Interpretation [...] code = 1015) 241 K/UL CBC W/AUTO [id number] 00:00:00 Test Item Value Reference Range Interpretation [...] COUNT (test code = 1015) 241 K/UL COMPREHENSIVE METABOLIC [id number] 00:00:00 Test Item Value Reference Range Interpretation Comments GLUCOSE (test code = 2217) 362 MG/DL BUN (test code = 2208) 10 MG/DL CREATININE (test code = 2214) 0.65 MG/DL eGFR AMER. (test code 113 ML/MIN/1.73 = 01976) eGFR NON- AMER. (test 98 ML/MIN/1.73 code = 77197) CALC BUN/CREAT (test code = 15 RATIO [...] ALT (test code = 2219) 14 U/L LIPID [id number] 00:00:00 Test Item Value Reference Range Interpretation Comments CHOLESTEROL (test code = 2210) 223 MG/DL TRIGLYCERIDES (test code = 2232) 152 MG/DL HDL CHOLESTEROL (test code = 2220) 62 MG/DL CALC LDL CHOL (test code = 2237) 133 MG/DL RISK RATIO LDL/HDL (test code = 2.15 RATIO 2238) LIPID [id number] 00:00:00 Test Item Value Reference Range Interpretation Comments CHOLESTEROL (test code = 2210) 223 MG/DL TRIGLYCERIDES (test code = 2232) 152 MG/DL HDL CHOLESTEROL (test code = 2220) 62 MG/DL CALC LDL CHOL (test code = 2237) 133 MG/DL RISK RATIO LDL/HDL (test code = 2.15 RATIO 2238) HEMOGLOBIN [id number] 00:00:00 Test Item Value Reference Range Interpretation Comments HEMOGLOBIN A1c (test code = 90251) 13.8 % HEMOGLOBIN [id number] 00:00:00 Test Item Value Reference Range Interpretation Comments HEMOGLOBIN A1c (test code = 13601) 13.8 % HEMOGLOBIN [id number] 00:00:00 Test Item Value Reference Range Interpretation Comments HEMOGLOBIN A1c (test code = 23777) 13.8 % CBC W/AUTO [id number] 00:00:00 Test Item Value Reference Range Interpretation [...] code = 1015) 241 K/UL CBC W/AUTO [id number] 00:00:00 Test Item Value Reference Range Interpretation [...] code = 1015) 241 K/UL CBC W/AUTO [id number] 00:00:00 Test Item Value Reference Range Interpretation [...] COUNT (test code = 1015) 241 K/UL COMPREHENSIVE METABOLIC [id number] 00:00:00 Test Item Value Reference Range Interpretation Comments GLUCOSE (test code = 2217) 362 MG/DL BUN (test code = 2208) 10 MG/DL CREATININE (test code = 2214) 0.65 MG/DL eGFR AMER. (test code 113 ML/MIN/1.73 = 55547) eGFR NON- AMER. (test 98 ML/MIN/1.73 code = 05081) CALC BUN/CREAT (test code = 15 RATIO 2235) SODIUM (test code = 2231) 138 MEQ/L POTASSIUM (test code = 2228) 4.7 MEQ/L CHLORIDE (test code = 2215) 101 MEQ/L CARBON DIOXIDE (test code = 27 MEQ/L 2206) CALCIUM (test code = 2209) 9.8 MG/DL [...] code = 2219) 14 U/L COMPREHENSIVE METABOLIC [id number] 00:00:00 Test Item Value Reference Range Interpretation Comments GLUCOSE (test code = 2217) 362 MG/DL BUN (test code = 2208) 10 MG/DL CREATININE (test code = 2214) 0.65 MG/DL eGFR AMER. (test code 113 ML/MIN/1.73 = 88271) eGFR NON- AMER. (test 98 ML/MIN/1.73 code = 51899) CALC BUN/CREAT (test code = 15 RATIO 2235) SODIUM (test code = 2231) 138 MEQ/L POTASSIUM (test code = 2228) 4.7 MEQ/L CHLORIDE (test code = 2215) 101 MEQ/L CARBON DIOXIDE (test code = 27 MEQ/L 2206) CALCIUM (test code = 2209) 9.8 MG/DL PROTEIN, TOTAL (test code = 7.0 G/DL 222) ALBUMIN (test code = 2201) 4.5 G/DL CALC GLOBULIN (test code = 2.5 G/DL 2240) CALC A/G RATIO (test code = 1.8 RATIO 2234) BILIRUBIN, TOTAL (test code = 0.8 MG/DL 220) ALKALINE PHOSPHATASE (test 89 U/L code = 2204) AST (test code = 2218) 14 U/L ALT (test code = 2219) 14 U/L CBC W/AUTO [id number] 00:00:00 Test Item Value Reference Range Interpretation [...] code = 1015) 241 K/UL CBC W/AUTO [id number] 00:00:00 Test Item Value Reference Range Interpretation [...] code = 1015) 241 K/UL CBC W/AUTO [id number] 00:00:00 Test Item Value Reference Range Interpretation [...] (test code = 1015) 241 K/UL LIPID [id number] 00:00:00 Test Item Value Reference Range Interpretation Comments CHOLESTEROL (test code = 2210) 223 MG/DL TRIGLYCERIDES (test code = 2232) 152 MG/DL HDL CHOLESTEROL (test code = 2220) 62 MG/DL CALC LDL CHOL (test code = 2237) 133 MG/DL RISK RATIO LDL/HDL (test code = 2.15 RATIO 2238) LIPID [id number] 00:00:00 Test Item Value Reference Range Interpretation Comments CHOLESTEROL (test code = 2210) 223 MG/DL TRIGLYCERIDES (test code = 2232) 152 MG/DL HDL CHOLESTEROL (test code = 2220) 62 MG/DL CALC LDL CHOL (test code = 2237) 133 MG/DL RISK RATIO LDL/HDL (test code = 2.15 RATIO 2238) HEMOGLOBIN [id number] 00:00:00 Test Item Value Reference Range Interpretation Comments HEMOGLOBIN A1c (test code = 78651) 13.8 % HEMOGLOBIN [id number] 00:00:00 Test Item Value Reference Range Interpretation Comments HEMOGLOBIN A1c (test code = 91952) 13.8 % HEMOGLOBIN [id number] 00:00:00 Test Item Value Reference Range Interpretation Comments HEMOGLOBIN A1c (test code = 28572) 13.8 % LIPID [id number] 00:00:00 Test Item Value Reference Range Interpretation Comments CHOLESTEROL (test code = 2210) 223 MG/DL TRIGLYCERIDES (test code = 2232) 152 MG/DL HDL CHOLESTEROL (test code = 2220) 62 MG/DL CALC LDL CHOL (test code = 2237) 133 MG/DL RISK RATIO LDL/HDL (test code = 2.15 RATIO 2238) LIPID [id number] 00:00:00 Test Item Value Reference Range Interpretation Comments CHOLESTEROL (test code = 2210) 223 MG/DL TRIGLYCERIDES (test code = 2232) 152 MG/DL HDL CHOLESTEROL (test code = 2220) 62 MG/DL CALC LDL CHOL (test code = 2237) 133 MG/DL RISK RATIO LDL/HDL (test code = 2.15 RATIO 2238) HEMOGLOBIN [id number] 00:00:00 Test Item Value Reference Range Interpretation Comments HEMOGLOBIN A1c (test code = 17565) 13.8 % HEMOGLOBIN [id number] 00:00:00 Test Item Value Reference Range Interpretation Comments HEMOGLOBIN A1c (test code = 43656) 13.8 % COMPREHENSIVE METABOLIC [id number] 00:00:00 Test Item Value Reference Range Interpretation Comments GLUCOSE (test code = 2217) 362 MG/DL BUN (test code = 2208) 10 MG/DL CREATININE (test code = 2214) 0.65 MG/DL eGFR AMER. (test code 113 ML/MIN/1.73 = 14797) eGFR NON- AMER. (test 98 ML/MIN/1.73 code = 75535) CALC BUN/CREAT (test code = 15 RATIO 2235) SODIUM (test code = 2231) 138 MEQ/L POTASSIUM (test code = 2228) 4.7 MEQ/L CHLORIDE (test code = 2215) 101 MEQ/L CARBON DIOXIDE (test code = 27 MEQ/L 2206) CALCIUM (test code = 2209) 9.8 MG/DL PROTEIN, TOTAL (test code = 7.0 G/DL 2228) ALBUMIN (test code = 2201) 4.5 G/DL CALC GLOBULIN (test code = 2.5 G/DL 2240) CALC A/G RATIO (test code = 1.8 RATIO 2234) BILIRUBIN, TOTAL (test code = 0.8 MG/DL 2206) ALKALINE PHOSPHATASE (test 89 U/L code = 220) AST (test code = 2218) 14 U/L ALT (test code = 2219) 14 U/L COMPREHENSIVE METABOLIC [id number] 00:00:00 Test Item Value Reference Range Interpretation Comments GLUCOSE (test code = 2217) 362 MG/DL BUN (test code = 2208) 10 MG/DL CREATININE (test code = 2214) 0.65 MG/DL eGFR AMER. (test code 113 ML/MIN/1.73 = 65448) eGFR NON- AMER. (test 98 ML/MIN/1.73 code = 38687) CALC BUN/CREAT (test code = 15 RATIO 2235) SODIUM (test code = 2231) 138 MEQ/L POTASSIUM (test code = 2228) 4.7 MEQ/L CHLORIDE (test code = 2215) 101 MEQ/L CARBON DIOXIDE (test code = 27 MEQ/L 2206) CALCIUM (test code = 2209) 9.8 MG/DL PROTEIN, TOTAL (test code = 7.0 G/DL 2228) ALBUMIN (test code = 2201) 4.5 G/DL CALC GLOBULIN (test code = 2.5 G/DL 2240) CALC A/G RATIO (test code = 1.8 RATIO 2234) BILIRUBIN, TOTAL (test code = 0.8 MG/DL 220) ALKALINE PHOSPHATASE (test 89 U/L code = 2204) AST (test code = 2218) 14 U/L ALT (test code = 2219) 14 U/L HEMOGLOBIN [id number] 00:00:00 Test Item Value Reference Range Interpretation Comments HEMOGLOBIN A1c (test code = 87285) 13.8 % CBC W/AUTO [id number] 00:00:00 Test Item Value Reference Range Interpretation [...] code = 1015) 241 K/UL CBC W/AUTO [id number] 00:00:00 Test Item Value Reference Range Interpretation [...] code = 1015) 241 K/UL CBC W/AUTO [id number] 00:00:00 Test Item Value Reference Range Interpretation [...] (test code = 1015) 241 K/UL LIPID [id number] 00:00:00 Test Item Value Reference Range Interpretation Comments CHOLESTEROL (test code = 2210) 223 MG/DL TRIGLYCERIDES (test code = 2232) 152 MG/DL HDL CHOLESTEROL (test code = 2220) 62 MG/DL CALC LDL CHOL (test code = 2237) 133 MG/DL RISK RATIO LDL/HDL (test code = 2.15 RATIO 2238) LIPID [id number] 00:00:00 Test Item Value Reference Range Interpretation Comments CHOLESTEROL (test code = 2210) 223 MG/DL TRIGLYCERIDES (test code = 2232) 152 MG/DL HDL CHOLESTEROL (test code = 2220) 62 MG/DL CALC LDL CHOL (test code = 2237) 133 MG/DL RISK RATIO LDL/HDL (test code = 2.15 RATIO 2238) HEMOGLOBIN [id number] 00:00:00 Test Item Value Reference Range Interpretation Comments HEMOGLOBIN A1c (test code = 62055) 13.8 % HEMOGLOBIN [id number] 00:00:00 Test Item Value Reference Range Interpretation Comments HEMOGLOBIN A1c (test code = 15571) 13.8 % HEMOGLOBIN [id number] 00:00:00 Test Item Value Reference Range Interpretation Comments HEMOGLOBIN A1c (test code = 80057) 13.8 % SCR MAMM BILATERAL GUERLINE CAD [id number] 11:18:52 Name: Geremias : 1960 Sex: F - SCR MAMM BILATERAL GUERLINE CAD DIGITALBILATERAL DIGITAL SCREENING MAMMOGRAM 3D/2D WITH CAD: 08/22/2020CLINICAL: Asymptomatic. Digital breast tomosynthesis was performed in addition to routine CC and MLO views. Current mammographic images were evaluated by either a [employer]Done M-Vu or a [employer] ImageChecker CAD (computer aided detection system). Comparison is made to exams dated 02/09/2018 mammogram and 12/14/2016 mammogram - [facility]. There are scattered fibroglandular tissues in both breasts. No suspicious mass, architectural distortion, malignant type calcification, or lymph node abnormality detected. Breast architecture is stable compared to prior exams.IMPRESSION: NEGATIVEThere is no mammographic evidence of malignancy. Resume annual screening mammography in one year. Lance Xavier/penrad:09/02/2020 11:18:52 Attending Technologist: Rebecca Underwood MM, [facility] MammographyImaging Technologist: Jacqueline Hernandez MM, [facility] Mammographyletter sent: BIRADS 1-2 Normal Mammogram BI-RADS: 1 [id number] (COVID-19) by RT-PCR (HIGH RISK)2020-04-18 00:00:00 Test Item Value Reference Range Interpretation Comments SARS-CoV-2 INTERPRETATION POSITIVE (test code = 09309) SOURCE (test code = 88465) NASOPHARYNGEAL SARS-CoV-2 (COVID-19) by RT-PCR (HIGH RISK)2020-04-18 00:00:00 Test Item Value Reference Range Interpretation Comments SARS-CoV-2 INTERPRETATION POSITIVE (test code = 92348) SOURCE (test code = 54904) NASOPHARYNGEAL SARS-CoV-2 (COVID-19) by RT-PCR (HIGH RISK)2020-04-18 00:00:00 Test Item Value Reference Range Interpretation Comments SARS-CoV-2 INTERPRETATION POSITIVE (test code = 30486) SOURCE (test code = 31266) NASOPHARYNGEAL SARS-CoV-2 (COVID-19) by RT-PCR (HIGH RISK)2020-04-18 00:00:00 Test Item Value Reference Range Interpretation Comments SARS-CoV-2 INTERPRETATION POSITIVE (test code = 03582) SOURCE (test code = 86154) NASOPHARYNGEAL SARS-CoV-2 (COVID-19) by RT-PCR (HIGH RISK)2020-04-18 00:00:00 Test Item Value Reference Range Interpretation Comments SARS-CoV-2 INTERPRETATION POSITIVE (test code = 53888) SOURCE (test code = 96339) NASOPHARYNGEAL SARS-CoV-2 (COVID-19) by RT-PCR (HIGH RISK)2020-04-18 00:00:00 Test Item Value Reference Range Interpretation Comments SARS-CoV-2 INTERPRETATION POSITIVE (test code = 93521) SOURCE (test code = 04279) NASOPHARYNGEAL SARS-CoV-2 (COVID-19) by RT-PCR (HIGH RISK)2020-04-18 00:00:00 Test Item Value Reference Range Interpretation Comments SARS-CoV-2 INTERPRETATION POSITIVE (test code = 03974) SOURCE (test code = 10097) NASOPHARYNGEAL SARS-CoV-2 (COVID-19) by RT-PCR (HIGH RISK)2020-04-18 00:00:00 Test Item Value Reference Range Interpretation Comments SARS-CoV-2 INTERPRETATION POSITIVE (test code = 50856) SOURCE (test code = 14934) NASOPHARYNGEAL SARS-CoV-2 (COVID-19) by RT-PCR (HIGH RISK)2020-04-18 00:00:00 Test Item Value Reference Range Interpretation Comments SARS-CoV-2 INTERPRETATION POSITIVE (test code = 49056) SOURCE (test code = 00359) NASOPHARYNGEAL SARS-CoV-2 (COVID-19) by RT-PCR (HIGH RISK)2020-04-18 00:00:00 Test Item Value Reference Range Interpretation Comments SARS-CoV-2 INTERPRETATION POSITIVE (test code = 18647) SOURCE (test code = 44700) NASOPHARYNGEAL SARS-CoV-2 (COVID-19) by RT-PCR (HIGH RISK)2020-04-18 00:00:00 Test Item Value Reference Range Interpretation Comments SARS-CoV-2 INTERPRETATION POSITIVE (test code = 17650) SOURCE (test code = 52525) NASOPHARYNGEAL SARS-CoV-2 (COVID-19) by RT-PCR (HIGH RISK)2020-04-18 00:00:00 Test Item Value Reference Range Interpretation Comments SARS-CoV-2 INTERPRETATION POSITIVE (test code = 00263) SOURCE (test code = 75411) NASOPHARYNGEAL [id number] 00:00:00 Test Item Value Reference Range Interpretation Comments TSH, THIRD GENERATION (test code 1.500 UIU/ML = 2821) [id number] 00:00:00 Test Item Value Reference Range Interpretation Comments TSH, THIRD GENERATION (test code 1.500 UIU/ML = 2821) [id number] 00:00:00 Test Item Value Reference Range Interpretation Comments TSH, THIRD GENERATION (test code 1.500 UIU/ML = 2821) [id number] 00:00:00 Test Item Value Reference Range Interpretation Comments TSH, THIRD GENERATION (test code 1.500 UIU/ML = 2821) [id number] 00:00:00 Test Item Value Reference Range Interpretation Comments TSH, THIRD GENERATION (test code 1.500 UIU/ML = 2821) [id number] 00:00:00 Test Item Value Reference Range Interpretation Comments TSH, THIRD GENERATION (test code 1.500 UIU/ML = 2821) [id number] 00:00:00 Test Item Value Reference Range Interpretation Comments TSH, THIRD GENERATION (test code 1.500 UIU/ML = 2821) [id number] 00:00:00 Test Item Value Reference Range Interpretation Comments TSH, THIRD GENERATION (test code 1.500 UIU/ML = 2821) [id number] 00:00:00 Test Item Value Reference Range Interpretation Comments TSH, THIRD GENERATION (test code 1.500 UIU/ML = 2821) [id number] 00:00:00 Test Item Value Reference Range Interpretation Comments TSH, THIRD GENERATION (test code 1.500 UIU/ML = 2821) [id number] 00:00:00 Test Item Value Reference Range Interpretation Comments TSH, THIRD GENERATION (test code 1.500 UIU/ML = 2821) [id number] 00:00:00 Test Item Value Reference Range Interpretation Comments TSH, THIRD GENERATION (test code 1.500 UIU/ML = 2821) [id number] 00:00:00 Test Item Value Reference Range Interpretation Comments TSH, THIRD GENERATION (test code 1.500 UIU/ML = 2821) [id number] 00:00:00 Test Item Value Reference Range Interpretation Comments TSH, THIRD GENERATION (test code 1.500 UIU/ML = 2821) [id number] 00:00:00 Test Item Value Reference Range Interpretation Comments TSH, THIRD GENERATION (test code 1.500 UIU/ML = 2821) [id number] 00:00:00 Test Item Value Reference Range Interpretation Comments TSH, THIRD GENERATION (test code 1.500 UIU/ML = 2821) [id number] 00:00:00 Test Item Value Reference Range Interpretation Comments TSH, THIRD GENERATION (test code 1.500 UIU/ML = 2821) [id number] 00:00:00 Test Item Value Reference Range Interpretation Comments TSH, THIRD GENERATION (test code 1.500 UIU/ML = 2821) CBC W/AUTO [id number] 00:00:00 Test Item Value Reference Range Interpretation [...] code = 1015) 265 K/UL CBC W/AUTO [id number] 00:00:00 Test Item Value Reference Range Interpretation [...] code = 1015) 265 K/UL CBC W/AUTO [id number] 00:00:00 Test Item Value Reference Range Interpretation [...] (test code = 1015) 265 K/UL HEMOGLOBIN [id number] 00:00:00 Test Item Value Reference Range Interpretation Comments HEMOGLOBIN A1c (test code = 60723) 9.7 % HEMOGLOBIN [id number] 00:00:00 Test Item Value Reference Range Interpretation Comments HEMOGLOBIN A1c (test code = 65378) 9.7 % HEMOGLOBIN [id number] 00:00:00 Test Item Value Reference Range Interpretation Comments HEMOGLOBIN A1c (test code = 09789) 9.7 % LIPID [id number] 00:00:00 Test Item Value Reference Range Interpretation Comments CHOLESTEROL (test code = 2210) 195 MG/DL TRIGLYCERIDES (test code = 2232) 109 MG/DL HDL CHOLESTEROL (test code = 2220) 60 MG/DL CALC LDL CHOL (test code = 2237) 113 MG/DL RISK RATIO LDL/HDL (test code = 1.88 RATIO 2238) LIPID [id number] 00:00:00 Test Item Value Reference Range Interpretation Comments CHOLESTEROL (test code = 2210) 195 MG/DL TRIGLYCERIDES (test code = 2232) 109 MG/DL HDL CHOLESTEROL (test code = 2220) 60 MG/DL CALC LDL CHOL (test code = 2237) 113 MG/DL RISK RATIO LDL/HDL (test code = 1.88 RATIO 2238) COMPREHENSIVE METABOLIC [id number] 00:00:00 Test Item Value Reference Range Interpretation Comments GLUCOSE (test code = 2217) 192 MG/DL BUN (test code = 2208) 14 MG/DL CREATININE (test code = 2214) 0.78 MG/DL eGFR AMER. (test code 98 ML/MIN/1.73 = 14794) eGFR NON- AMER. (test 84 ML/MIN/1.73 code = 69582) CALC BUN/CREAT (test code = 18 RATIO [...] CALC GLOBULIN (test code = 2.7 G/DL 0) CALC A/G RATIO (test code = 1.8 RATIO 2233) BILIRUBIN, TOTAL (test code = 0.4 MG/DL 2206) ALKALINE PHOSPHATASE (test 76 U/L code = 2204) AST (test code = 2218) 14 U/L ALT (test code = 2219) 12 U/L COMPREHENSIVE METABOLIC [id number] 00:00:00 Test Item Value Reference Range Interpretation Comments GLUCOSE (test code = 2217) 192 MG/DL BUN (test code = 2208) 14 MG/DL CREATININE (test code = 2214) 0.78 MG/DL eGFR AMER. (test code 98 ML/MIN/1.73 = 98660) eGFR NON- AMER. (test 84 ML/MIN/1.73 code = 44074) CALC BUN/CREAT (test code = 18 RATIO [...] RATIO 2233) BILIRUBIN, TOTAL (test code = 0.4 MG/DL 2206) ALKALINE PHOSPHATASE (test 76 U/L code = 2204) AST (test code = 2218) 14 U/L ALT (test code = 2219) 12 U/L CBC W/AUTO [id number] 00:00:00 Test Item Value Reference Range Interpretation [...] code = 1015) 265 K/UL CBC W/AUTO [id number] 00:00:00 Test Item Value Reference Range Interpretation [...] code = 1015) 265 K/UL CBC W/AUTO [id number] 00:00:00 Test Item Value Reference Range Interpretation [...] (test code = 1015) 265 K/UL HEMOGLOBIN [id number] 00:00:00 Test Item Value Reference Range Interpretation Comments HEMOGLOBIN A1c (test code = 51053) 9.7 % HEMOGLOBIN [id number] 00:00:00 Test Item Value Reference Range Interpretation Comments HEMOGLOBIN A1c (test code = 98198) 9.7 % HEMOGLOBIN [id number] 00:00:00 Test Item Value Reference Range Interpretation Comments HEMOGLOBIN A1c (test code = 74779) 9.7 % LIPID [id number] 00:00:00 Test Item Value Reference Range Interpretation Comments CHOLESTEROL (test code = 2210) 195 MG/DL TRIGLYCERIDES (test code = 2232) 109 MG/DL HDL CHOLESTEROL (test code = 2220) 60 MG/DL CALC LDL CHOL (test code = 2237) 113 MG/DL RISK RATIO LDL/HDL (test code = 1.88 RATIO 2238) LIPID [id number] 00:00:00 Test Item Value Reference Range Interpretation Comments CHOLESTEROL (test code = 2210) 195 MG/DL TRIGLYCERIDES (test code = 2232) 109 MG/DL HDL CHOLESTEROL (test code = 2220) 60 MG/DL CALC LDL CHOL (test code = 2237) 113 MG/DL RISK RATIO LDL/HDL (test code = 1.88 RATIO 2238) COMPREHENSIVE METABOLIC [id number] 00:00:00 Test Item Value Reference Range Interpretation Comments GLUCOSE (test code = 2217) 192 MG/DL BUN (test code = 2208) 14 MG/DL CREATININE (test code = 2214) 0.78 MG/DL eGFR AMER. (test code 98 ML/MIN/1.73 = 97562) eGFR NON- AMER. (test 84 ML/MIN/1.73 code = 72302) CALC BUN/CREAT (test code = 18 RATIO 2235) SODIUM (test code = 2231) 139 MEQ/L POTASSIUM (test code = 2228) 4.6 MEQ/L CHLORIDE (test code = 2215) 101 MEQ/L CARBON DIOXIDE (test code = 22 MEQ/L 220) CALCIUM (test code = 2209) 10.1 MG/DL PROTEIN, TOTAL (test code = 7.5 G/DL 2228) ALBUMIN (test code = 2201) 4.8 G/DL CALC GLOBULIN (test code = 2.7 G/DL 224) CALC A/G RATIO (test code = 1.8 RATIO 2234) BILIRUBIN, TOTAL (test code = 0.4 MG/DL 2206) ALKALINE PHOSPHATASE (test 76 U/L code = 2204) AST (test code = 2218) 14 U/L ALT (test code = 2219) 12 U/L COMPREHENSIVE METABOLIC [id number] 00:00:00 Test Item Value Reference Range Interpretation Comments GLUCOSE (test code = 2217) 192 MG/DL BUN (test code = 2208) 14 MG/DL CREATININE (test code = 2214) 0.78 MG/DL eGFR AMER. (test code 98 ML/MIN/1.73 = 19604) eGFR NON- AMER. (test 84 ML/MIN/1.73 code = 50717) CALC BUN/CREAT (test code = 18 RATIO 2235) SODIUM (test code = 2231) 139 MEQ/L POTASSIUM (test code = 2228) 4.6 MEQ/L CHLORIDE (test code = 2215) 101 MEQ/L CARBON DIOXIDE (test code = 22 MEQ/L 220) CALCIUM (test code = 2209) 10.1 MG/DL PROTEIN, TOTAL (test code = 7.5 G/DL 2229) ALBUMIN (test code = 2201) 4.8 G/DL CALC GLOBULIN (test code = 2.7 G/DL 2240) CALC A/G RATIO (test code = 1.8 RATIO 4) BILIRUBIN, TOTAL (test code = 0.4 MG/DL 2206) ALKALINE PHOSPHATASE (test 76 U/L code = 2204) AST (test code = 2218) 14 U/L ALT (test code = 2219) 12 U/L CBC W/AUTO [id number] 00:00:00 Test Item Value Reference Range Interpretation [...] code = 1015) 265 K/UL CBC W/AUTO [id number] 00:00:00 Test Item Value Reference Range Interpretation [...] code = 1015) 265 K/UL CBC W/AUTO [id number] 00:00:00 Test Item Value Reference Range Interpretation [...] code = 1015) 265 K/UL CBC W/AUTO [id number] 00:00:00 Test Item Value Reference Range Interpretation [...] (test code = 1015) 265 K/UL HEMOGLOBIN [id number] 00:00:00 Test Item Value Reference Range Interpretation Comments HEMOGLOBIN A1c (test code = 77653) 9.7 % HEMOGLOBIN [id number] 00:00:00 Test Item Value Reference Range Interpretation Comments HEMOGLOBIN A1c (test code = 73964) 9.7 % HEMOGLOBIN [id number] 00:00:00 Test Item Value Reference Range Interpretation Comments HEMOGLOBIN A1c (test code = 54726) 9.7 % LIPID [id number] 00:00:00 Test Item Value Reference Range Interpretation Comments CHOLESTEROL (test code = 2210) 195 MG/DL TRIGLYCERIDES (test code = 2232) 109 MG/DL HDL CHOLESTEROL (test code = 2220) 60 MG/DL CALC LDL CHOL (test code = 2237) 113 MG/DL RISK RATIO LDL/HDL (test code = 1.88 RATIO 2238) LIPID [id number] 00:00:00 Test Item Value Reference Range Interpretation Comments CHOLESTEROL (test code = 2210) 195 MG/DL TRIGLYCERIDES (test code = 2232) 109 MG/DL HDL CHOLESTEROL (test code = 2220) 60 MG/DL CALC LDL CHOL (test code = 2237) 113 MG/DL RISK RATIO LDL/HDL (test code = 1.88 RATIO 2238) COMPREHENSIVE METABOLIC [id number] 00:00:00 Test Item Value Reference Range Interpretation Comments GLUCOSE (test code = 2217) 192 MG/DL BUN (test code = 2208) 14 MG/DL CREATININE (test code = 2214) 0.78 MG/DL eGFR AMER. (test code 98 ML/MIN/1.73 = 00675) eGFR NON- AMER. (test 84 ML/MIN/1.73 code = 43667) CALC BUN/CREAT (test code = 18 RATIO 2235) SODIUM (test code = 2231) 139 MEQ/L POTASSIUM (test code = 2228) 4.6 MEQ/L CHLORIDE (test code = 2215) 101 MEQ/L CARBON DIOXIDE (test code = 22 MEQ/L 220) CALCIUM (test code = 2209) 10.1 MG/DL [...] code = 2219) 12 U/L COMPREHENSIVE METABOLIC [id number] 00:00:00 Test Item Value Reference Range Interpretation Comments GLUCOSE (test code = 2217) 192 MG/DL BUN (test code = 2208) 14 MG/DL CREATININE (test code = 2214) 0.78 MG/DL eGFR AMER. (test code 98 ML/MIN/1.73 = 72188) eGFR NON- AMER. (test 84 ML/MIN/1.73 code = 92881) CALC BUN/CREAT (test code = 18 RATIO 2235) SODIUM (test code = 2231) 139 MEQ/L POTASSIUM (test code = 2228) 4.6 MEQ/L CHLORIDE (test code = 2215) 101 MEQ/L CARBON DIOXIDE (test code = 22 MEQ/L 220) CALCIUM (test code = 2209) 10.1 MG/DL PROTEIN, TOTAL (test code = 7.5 G/DL 2228) ALBUMIN (test code = 2201) 4.8 G/DL CALC GLOBULIN (test code = 2.7 G/DL 2239) CALC A/G RATIO (test code = 1.8 RATIO 2233) BILIRUBIN, TOTAL (test code = 0.4 MG/DL 2206) ALKALINE PHOSPHATASE (test 76 U/L code = 2204) AST (test code = 2218) 14 U/L ALT (test code = 2219) 12 U/L CBC W/AUTO [id number] 00:00:00 Test Item Value Reference Range Interpretation [...] code = 1015) 265 K/UL CBC W/AUTO [id number] 00:00:00 Test Item Value Reference Range Interpretation [...] (test code = 1015) 265 K/UL HEMOGLOBIN [id number] 00:00:00 Test Item Value Reference Range Interpretation Comments HEMOGLOBIN A1c (test code = 10533) 9.7 % HEMOGLOBIN [id number] 00:00:00 Test Item Value Reference Range Interpretation Comments HEMOGLOBIN A1c (test code = 05416) 9.7 % CBC W/AUTO [id number] 00:00:00 Test Item Value Reference Range Interpretation [...] code = 1015) 265 K/UL CBC W/AUTO [id number] 00:00:00 Test Item Value Reference Range Interpretation [...] code = 1015) 265 K/UL CBC W/AUTO [id number] 00:00:00 Test Item Value Reference Range Interpretation [...] (test code = 1015) 265 K/UL HEMOGLOBIN [id number] 00:00:00 Test Item Value Reference Range Interpretation Comments HEMOGLOBIN A1c (test code = 87343) 9.7 % HEMOGLOBIN [id number] 00:00:00 Test Item Value Reference Range Interpretation Comments HEMOGLOBIN A1c (test code = 30115) 9.7 % HEMOGLOBIN [id number] 00:00:00 Test Item Value Reference Range Interpretation Comments HEMOGLOBIN A1c (test code = 76532) 9.7 % HEMOGLOBIN [id number] 00:00:00 Test Item Value Reference Range Interpretation Comments HEMOGLOBIN A1c (test code = 62912) 9.7 % LIPID [id number] 00:00:00 Test Item Value Reference Range Interpretation Comments CHOLESTEROL (test code = 2210) 195 MG/DL TRIGLYCERIDES (test code = 2232) 109 MG/DL HDL CHOLESTEROL (test code = 2220) 60 MG/DL CALC LDL CHOL (test code = 2237) 113 MG/DL RISK RATIO LDL/HDL (test code = 1.88 RATIO 2238) LIPID [id number] 00:00:00 Test Item Value Reference Range Interpretation Comments CHOLESTEROL (test code = 2210) 195 MG/DL TRIGLYCERIDES (test code = 2232) 109 MG/DL HDL CHOLESTEROL (test code = 2220) 60 MG/DL CALC LDL CHOL (test code = 2237) 113 MG/DL RISK RATIO LDL/HDL (test code = 1.88 RATIO 2238) COMPREHENSIVE METABOLIC [id number] 00:00:00 Test Item Value Reference Range Interpretation Comments GLUCOSE (test code = 2217) 192 MG/DL BUN (test code = 2208) 14 MG/DL CREATININE (test code = 2214) 0.78 MG/DL eGFR AMER. (test code 98 ML/MIN/1.73 = 29724) eGFR NON- AMER. (test 84 ML/MIN/1.73 code = 32771) CALC BUN/CREAT (test code = 18 RATIO [...] code = 2219) 12 U/L COMPREHENSIVE METABOLIC [id number] 00:00:00 Test Item Value Reference Range Interpretation Comments GLUCOSE (test code = 2217) 192 MG/DL BUN (test code = 2208) 14 MG/DL CREATININE (test code = 2214) 0.78 MG/DL eGFR AMER. (test code 98 ML/MIN/1.73 = 72265) eGFR NON- AMER. (test 84 ML/MIN/1.73 code = 70828) CALC BUN/CREAT (test code = 18 RATIO 2235) SODIUM (test code = 2231) 139 MEQ/L POTASSIUM (test code = 2228) 4.6 MEQ/L CHLORIDE (test code = 2215) 101 MEQ/L CARBON DIOXIDE (test code = 22 MEQ/L 220) CALCIUM (test code = 2209) 10.1 MG/DL [...] (test code = 2219) 12 U/L LIPID [id number] 00:00:00 Test Item Value Reference Range Interpretation Comments CHOLESTEROL (test code = 2210) 195 MG/DL TRIGLYCERIDES (test code = 2232) 109 MG/DL HDL CHOLESTEROL (test code = 2220) 60 MG/DL CALC LDL CHOL (test code = 2237) 113 MG/DL RISK RATIO LDL/HDL (test code = 1.88 RATIO 2238) LIPID [id number] 00:00:00 Test Item Value Reference Range Interpretation Comments CHOLESTEROL (test code = 2210) 195 MG/DL TRIGLYCERIDES (test code = 2232) 109 MG/DL HDL CHOLESTEROL (test code = 2220) 60 MG/DL CALC LDL CHOL (test code = 2237) 113 MG/DL RISK RATIO LDL/HDL (test code = 1.88 RATIO 2238) COMPREHENSIVE METABOLIC [id number] 00:00:00 Test Item Value Reference Range Interpretation Comments GLUCOSE (test code = 2217) 192 MG/DL BUN (test code = 2208) 14 MG/DL CREATININE (test code = 2214) 0.78 MG/DL eGFR AMER. (test code 98 ML/MIN/1.73 = 14584) eGFR NON- AMER. (test 84 ML/MIN/1.73 code = 54726) CALC BUN/CREAT (test code = 18 RATIO 2235) SODIUM (test code = 2231) 139 MEQ/L POTASSIUM (test code = 2228) 4.6 MEQ/L CHLORIDE (test code = 2215) 101 MEQ/L CARBON DIOXIDE (test code = 22 MEQ/L 2206) CALCIUM (test code = 2209) 10.1 MG/DL PROTEIN, TOTAL (test code = 7.5 G/DL 222) ALBUMIN (test code = 2201) 4.8 G/DL CALC GLOBULIN (test code = 2.7 G/DL 2240) CALC A/G RATIO (test code = 1.8 RATIO 2234) BILIRUBIN, TOTAL (test code = 0.4 MG/DL 2206) ALKALINE PHOSPHATASE (test 76 U/L code = 2204) AST (test code = 2218) 14 U/L ALT (test code = 2219) 12 U/L COMPREHENSIVE METABOLIC [id number] 00:00:00 Test Item Value Reference Range Interpretation Comments GLUCOSE (test code = 2217) 192 MG/DL BUN (test code = 2208) 14 MG/DL CREATININE (test code = 2214) 0.78 MG/DL eGFR AMER. (test code 98 ML/MIN/1.73 = 86786) eGFR NON- AMER. (test 84 ML/MIN/1.73 code = 35515) CALC BUN/CREAT (test code = 18 RATIO 2235) SODIUM (test code = 2231) 139 MEQ/L POTASSIUM (test code = 2228) 4.6 MEQ/L CHLORIDE (test code = 2215) 101 MEQ/L CARBON DIOXIDE (test code = 22 MEQ/L 220) CALCIUM (test code = 2209) 10.1 MG/DL PROTEIN, TOTAL (test code = 7.5 G/DL 2229) ALBUMIN (test code = 2201) 4.8 G/DL CALC GLOBULIN (test code = 2.7 G/DL 2240) CALC A/G RATIO (test code = 1.8 RATIO 2234) BILIRUBIN, TOTAL (test code = 0.4 MG/DL 7) ALKALINE PHOSPHATASE (test 76 U/L code = 2204) AST (test code = 2218) 14 U/L ALT (test code = 2219) 12 U/L CBC W/AUTO [id number] 00:00:00 Test Item Value Reference Range Interpretation [...] code = 1015) 265 K/UL CBC W/AUTO [id number] 00:00:00 Test Item Value Reference Range Interpretation [...] code = 1015) 265 K/UL CBC W/AUTO [id number] 00:00:00 Test Item Value Reference Range Interpretation [...] (test code = 1015) 265 K/UL HEMOGLOBIN [id number] 00:00:00 Test Item Value Reference Range Interpretation Comments HEMOGLOBIN A1c (test code = 74875) 9.7 % HEMOGLOBIN [id number] 00:00:00 Test Item Value Reference Range Interpretation Comments HEMOGLOBIN A1c (test code = 80234) 9.7 % HEMOGLOBIN [id number] 00:00:00 Test Item Value Reference Range Interpretation Comments HEMOGLOBIN A1c (test code = 48987) 9.7 % LIPID [id number] 00:00:00 Test Item Value Reference Range Interpretation Comments CHOLESTEROL (test code = 2210) 195 MG/DL TRIGLYCERIDES (test code = 2232) 109 MG/DL HDL CHOLESTEROL (test code = 2220) 60 MG/DL CALC LDL CHOL (test code = 2237) 113 MG/DL RISK RATIO LDL/HDL (test code = 1.88 RATIO 2238) LIPID [id number] 00:00:00 Test Item Value Reference Range Interpretation Comments CHOLESTEROL (test code = 2210) 195 MG/DL TRIGLYCERIDES (test code = 2232) 109 MG/DL HDL CHOLESTEROL (test code = 2220) 60 MG/DL CALC LDL CHOL (test code = 2237) 113 MG/DL RISK RATIO LDL/HDL (test code = 1.88 RATIO 2238) COMPREHENSIVE METABOLIC [id number] 00:00:00 Test Item Value Reference Range Interpretation Comments GLUCOSE (test code = 2217) 192 MG/DL BUN (test code = 2208) 14 MG/DL CREATININE (test code = 2214) 0.78 MG/DL eGFR AMER. (test code 98 ML/MIN/1.73 = 10142) eGFR NON- AMER. (test 84 ML/MIN/1.73 code = 48548) CALC BUN/CREAT (test code = 18 RATIO 2235) SODIUM (test code = 2231) 139 MEQ/L POTASSIUM (test code = 2228) 4.6 MEQ/L CHLORIDE (test code = 2215) 101 MEQ/L CARBON DIOXIDE (test code = 22 MEQ/L 2205) CALCIUM (test code = 2209) 10.1 MG/DL PROTEIN, TOTAL (test code = 7.5 G/DL 222) ALBUMIN (test code = 2201) 4.8 G/DL CALC GLOBULIN (test code = 2.7 G/DL 2240) CALC A/G RATIO (test code = 1.8 RATIO 2234) BILIRUBIN, TOTAL (test code = 0.4 MG/DL 220) ALKALINE PHOSPHATASE (test 76 U/L code = 2204) AST (test code = 2218) 14 U/L ALT (test code = 2219) 12 U/L COMPREHENSIVE METABOLIC [id number] 00:00:00 Test Item Value Reference Range Interpretation Comments GLUCOSE (test code = 2217) 192 MG/DL BUN (test code = 2208) 14 MG/DL CREATININE (test code = 2214) 0.78 MG/DL eGFR AMER. (test code 98 ML/MIN/1.73 = 23923) eGFR NON- AMER. (test 84 ML/MIN/1.73 code = 47046) CALC BUN/CREAT (test code = 18 RATIO [...] BILIRUBIN, TOTAL (test code = 0.4 MG/DL 2207) ALKALINE PHOSPHATASE (test 76 U/L code = 2204) AST (test code = 2218) 14 U/L ALT (test code = 2219) 12 U/L LIPID [id number] 00:00:00 Test Item Value Reference Range Interpretation Comments CHOLESTEROL (test code = 2210) 223 MG/DL TRIGLYCERIDES (test code = 2232) 151 MG/DL HDL CHOLESTEROL (test code = 2220) 58 MG/DL CALC LDL CHOL (test code = 2237) 135 MG/DL RISK RATIO LDL/HDL (test code = 2.32 RATIO 2238) LIPID [id number] 00:00:00 Test Item Value Reference Range Interpretation Comments CHOLESTEROL (test code = 2210) 223 MG/DL TRIGLYCERIDES (test code = 2232) 151 MG/DL HDL CHOLESTEROL (test code = 2220) 58 MG/DL CALC LDL CHOL (test code = 2237) 135 MG/DL RISK RATIO LDL/HDL (test code = 2.32 RATIO 2238) HEMOGLOBIN [id number] 00:00:00 Test Item Value Reference Range Interpretation Comments HEMOGLOBIN A1c (test code = 74787) 11.5 % HEMOGLOBIN [id number] 00:00:00 Test Item Value Reference Range Interpretation Comments HEMOGLOBIN A1c (test code = 89610) 11.5 % HEMOGLOBIN [id number] 00:00:00 Test Item Value Reference Range Interpretation Comments HEMOGLOBIN A1c (test code = 35012) 11.5 % COMPREHENSIVE METABOLIC [id number] 00:00:00 Test Item Value Reference Range Interpretation Comments GLUCOSE (test code = 2217) 386 MG/DL BUN (test code = 2208) 11 MG/DL CREATININE (test code = 2214) 0.77 MG/DL eGFR AMER. (test code 99 ML/MIN/1.73 = 14479) eGFR NON- AMER. (test 86 ML/MIN/1.73 code = 19281) CALC BUN/CREAT (test code = 14 RATIO 2235) SODIUM (test code = 2231) 136 MEQ/L POTASSIUM (test code = 2228) 4.5 MEQ/L CHLORIDE (test code = 2215) 98 MEQ/L CARBON DIOXIDE (test code = 26 MEQ/L 2205) CALCIUM (test code = 2209) 9.7 MG/DL PROTEIN, TOTAL (test code = 7.3 G/DL 2228) ALBUMIN (test code = 2201) 4.2 G/DL CALC GLOBULIN (test code = 3.1 G/DL 2239) CALC A/G RATIO (test code = 1.4 RATIO 2234) BILIRUBIN, TOTAL (test code = 0.6 MG/DL 2206) ALKALINE PHOSPHATASE (test 88 U/L code = 2204) AST (test code = 2218) 14 U/L ALT (test code = 2219) 11 U/L COMPREHENSIVE METABOLIC [id number] 00:00:00 Test Item Value Reference Range Interpretation Comments GLUCOSE (test code = 2217) 386 MG/DL BUN (test code = 2208) 11 MG/DL CREATININE (test code = 2214) 0.77 MG/DL eGFR AMER. (test code 99 ML/MIN/1.73 = 15592) eGFR NON- AMER. (test 86 ML/MIN/1.73 code = 36376) CALC BUN/CREAT (test code = 14 RATIO 2235) SODIUM (test code = 2231) 136 MEQ/L POTASSIUM (test code = 2228) 4.5 MEQ/L CHLORIDE (test code = 2215) 98 MEQ/L CARBON DIOXIDE (test code = 26 MEQ/L 2205) CALCIUM (test code = 2209) 9.7 MG/DL PROTEIN, TOTAL (test code = 7.3 G/DL 2228) ALBUMIN (test code = 2201) 4.2 G/DL CALC GLOBULIN (test code = 3.1 G/DL 2239) CALC A/G RATIO (test code = 1.4 RATIO 2234) BILIRUBIN, TOTAL (test code = 0.6 MG/DL 2206) ALKALINE PHOSPHATASE (test 88 U/L code = 2204) AST (test code = 2218) 14 U/L ALT (test code = 2219) 11 U/L LIPID [id number] 00:00:00 Test Item Value Reference Range Interpretation Comments CHOLESTEROL (test code = 2210) 223 MG/DL TRIGLYCERIDES (test code = 2232) 151 MG/DL HDL CHOLESTEROL (test code = 2220) 58 MG/DL CALC LDL CHOL (test code = 2237) 135 MG/DL RISK RATIO LDL/HDL (test code = 2.32 RATIO 2238) LIPID [id number] 00:00:00 Test Item Value Reference Range Interpretation Comments CHOLESTEROL (test code = 2210) 223 MG/DL TRIGLYCERIDES (test code = 2232) 151 MG/DL HDL CHOLESTEROL (test code = 2220) 58 MG/DL CALC LDL CHOL (test code = 2237) 135 MG/DL RISK RATIO LDL/HDL (test code = 2.32 RATIO 2238) HEMOGLOBIN [id number] 00:00:00 Test Item Value Reference Range Interpretation Comments HEMOGLOBIN A1c (test code = 30555) 11.5 % HEMOGLOBIN [id number] 00:00:00 Test Item Value Reference Range Interpretation Comments HEMOGLOBIN A1c (test code = 84956) 11.5 % HEMOGLOBIN [id number] 00:00:00 Test Item Value Reference Range Interpretation Comments HEMOGLOBIN A1c (test code = 65344) 11.5 % COMPREHENSIVE METABOLIC [id number] 00:00:00 Test Item Value Reference Range Interpretation Comments GLUCOSE (test code = 2217) 386 MG/DL BUN (test code = 2208) 11 MG/DL CREATININE (test code = 2214) 0.77 MG/DL eGFR AMER. (test code 99 ML/MIN/1.73 = 18158) eGFR NON- AMER. (test 86 ML/MIN/1.73 code = 01714) CALC BUN/CREAT (test code = 14 RATIO 2235) SODIUM (test code = 2231) 136 MEQ/L POTASSIUM (test code = 2228) 4.5 MEQ/L CHLORIDE (test code = 2215) 98 MEQ/L CARBON DIOXIDE (test code = 26 MEQ/L 2205) CALCIUM (test code = 2209) 9.7 MG/DL [...] code = 2219) 11 U/L COMPREHENSIVE METABOLIC [id number] 00:00:00 Test Item Value Reference Range Interpretation Comments GLUCOSE (test code = 2217) 386 MG/DL BUN (test code = 2208) 11 MG/DL CREATININE (test code = 2214) 0.77 MG/DL eGFR AMER. (test code 99 ML/MIN/1.73 = 73256) eGFR NON- AMER. (test 86 ML/MIN/1.73 code = 21936) CALC BUN/CREAT (test code = 14 RATIO 2235) SODIUM (test code = 2231) 136 MEQ/L POTASSIUM (test code = 2228) 4.5 MEQ/L CHLORIDE (test code = 2215) 98 MEQ/L CARBON DIOXIDE (test code = 26 MEQ/L 2205) CALCIUM (test code = 2209) 9.7 MG/DL [...] ALT (test code = 2219) 11 U/L LIPID [id number] 00:00:00 Test Item Value Reference Range Interpretation Comments CHOLESTEROL (test code = 2210) 223 MG/DL TRIGLYCERIDES (test code = 2232) 151 MG/DL HDL CHOLESTEROL (test code = 2220) 58 MG/DL CALC LDL CHOL (test code = 2237) 135 MG/DL RISK RATIO LDL/HDL (test code = 2.32 RATIO 2238) LIPID [id number] 00:00:00 Test Item Value Reference Range Interpretation Comments CHOLESTEROL (test code = 2210) 223 MG/DL TRIGLYCERIDES (test code = 2232) 151 MG/DL HDL CHOLESTEROL (test code = 2220) 58 MG/DL CALC LDL CHOL (test code = 2237) 135 MG/DL RISK RATIO LDL/HDL (test code = 2.32 RATIO 2238) LIPID [id number] 00:00:00 Test Item Value Reference Range Interpretation Comments CHOLESTEROL (test code = 2210) 223 MG/DL TRIGLYCERIDES (test code = 2232) 151 MG/DL HDL CHOLESTEROL (test code = 2220) 58 MG/DL CALC LDL CHOL (test code = 2237) 135 MG/DL RISK RATIO LDL/HDL (test code = 2.32 RATIO 2238) HEMOGLOBIN [id number] 00:00:00 Test Item Value Reference Range Interpretation Comments HEMOGLOBIN A1c (test code = 69755) 11.5 % HEMOGLOBIN [id number] 00:00:00 Test Item Value Reference Range Interpretation Comments HEMOGLOBIN A1c (test code = 22731) 11.5 % HEMOGLOBIN [id number] 00:00:00 Test Item Value Reference Range Interpretation Comments HEMOGLOBIN A1c (test code = 47166) 11.5 % COMPREHENSIVE METABOLIC [id number] 00:00:00 Test Item Value Reference Range Interpretation Comments GLUCOSE (test code = 2217) 386 MG/DL BUN (test code = 2208) 11 MG/DL CREATININE (test code = 2214) 0.77 MG/DL eGFR AMER. (test code 99 ML/MIN/1.73 = 10567) eGFR NON- AMER. (test 86 ML/MIN/1.73 code = 52647) CALC BUN/CREAT (test code = 14 RATIO 2235) SODIUM (test code = 2231) 136 MEQ/L POTASSIUM (test code = 2228) 4.5 MEQ/L CHLORIDE (test code = 2215) 98 MEQ/L CARBON DIOXIDE (test code = 26 MEQ/L 2205) CALCIUM (test code = 2209) 9.7 MG/DL PROTEIN, TOTAL (test code = 7.3 G/DL 2228) ALBUMIN (test code = 2201) 4.2 G/DL CALC GLOBULIN (test code = 3.1 G/DL 2239) CALC A/G RATIO (test code = 1.4 RATIO 2233) BILIRUBIN, TOTAL (test code = 0.6 MG/DL 2206) ALKALINE PHOSPHATASE (test 88 U/L code = 2204) AST (test code = 2218) 14 U/L ALT (test code = 2219) 11 U/L COMPREHENSIVE METABOLIC [id number] 00:00:00 Test Item Value Reference Range Interpretation Comments GLUCOSE (test code = 2217) 386 MG/DL BUN (test code = 2208) 11 MG/DL CREATININE (test code = 2214) 0.77 MG/DL eGFR AMER. (test code 99 ML/MIN/1.73 = 86687) eGFR NON- AMER. (test 86 ML/MIN/1.73 code = 28656) CALC BUN/CREAT (test code = 14 RATIO [...] A/G RATIO (test code = 1.4 RATIO 4) BILIRUBIN, TOTAL (test code = 0.6 MG/DL 2206) ALKALINE PHOSPHATASE (test 88 U/L code = 2204) AST (test code = 2218) 14 U/L ALT (test code = 2219) 11 U/L LIPID [id number] 00:00:00 Test Item Value Reference Range Interpretation Comments CHOLESTEROL (test code = 2210) 223 MG/DL TRIGLYCERIDES (test code = 2232) 151 MG/DL HDL CHOLESTEROL (test code = 2220) 58 MG/DL CALC LDL CHOL (test code = 2237) 135 MG/DL RISK RATIO LDL/HDL (test code = 2.32 RATIO 2238) HEMOGLOBIN [id number] 00:00:00 Test Item Value Reference Range Interpretation Comments HEMOGLOBIN A1c (test code = 06007) 11.5 % LIPID [id number] 00:00:00 Test Item Value Reference Range Interpretation Comments CHOLESTEROL (test code = 2210) 223 MG/DL TRIGLYCERIDES (test code = 2232) 151 MG/DL HDL CHOLESTEROL (test code = 2220) 58 MG/DL CALC LDL CHOL (test code = 2237) 135 MG/DL RISK RATIO LDL/HDL (test code = 2.32 RATIO 2238) LIPID [id number] 00:00:00 Test Item Value Reference Range Interpretation Comments CHOLESTEROL (test code = 2210) 223 MG/DL TRIGLYCERIDES (test code = 2232) 151 MG/DL HDL CHOLESTEROL (test code = 2220) 58 MG/DL CALC LDL CHOL (test code = 2237) 135 MG/DL RISK RATIO LDL/HDL (test code = 2.32 RATIO 2238) HEMOGLOBIN [id number] 00:00:00 Test Item Value Reference Range Interpretation Comments HEMOGLOBIN A1c (test code = 77567) 11.5 % HEMOGLOBIN [id number] 00:00:00 Test Item Value Reference Range Interpretation Comments HEMOGLOBIN A1c (test code = 87658) 11.5 % HEMOGLOBIN [id number] 00:00:00 Test Item Value Reference Range Interpretation Comments HEMOGLOBIN A1c (test code = 02560) 11.5 % HEMOGLOBIN [id number] 00:00:00 Test Item Value Reference Range Interpretation Comments HEMOGLOBIN A1c (test code = 64741) 11.5 % HEMOGLOBIN [id number] 00:00:00 Test Item Value Reference Range Interpretation Comments HEMOGLOBIN A1c (test code = 32035) 11.5 % COMPREHENSIVE METABOLIC [id number] 00:00:00 Test Item Value Reference Range Interpretation Comments GLUCOSE (test code = 2217) 386 MG/DL BUN (test code = 2208) 11 MG/DL CREATININE (test code = 2214) 0.77 MG/DL eGFR AMER. (test code 99 ML/MIN/1.73 = 78318) eGFR NON- AMER. (test 86 ML/MIN/1.73 code = 60608) CALC BUN/CREAT (test code = 14 RATIO 2235) SODIUM (test code = 2231) 136 MEQ/L POTASSIUM (test code = 2228) 4.5 MEQ/L CHLORIDE (test code = 2215) 98 MEQ/L CARBON DIOXIDE (test code = 26 MEQ/L 2205) CALCIUM (test code = 2209) 9.7 MG/DL PROTEIN, TOTAL (test code = 7.3 G/DL 2228) ALBUMIN (test code = 2201) 4.2 G/DL CALC GLOBULIN (test code = 3.1 G/DL 0) CALC A/G RATIO (test code = 1.4 RATIO 4) BILIRUBIN, TOTAL (test code = 0.6 MG/DL 2206) ALKALINE PHOSPHATASE (test 88 U/L code = 2204) AST (test code = 2218) 14 U/L ALT (test code = 2219) 11 U/L COMPREHENSIVE METABOLIC [id number] 00:00:00 Test Item Value Reference Range Interpretation Comments GLUCOSE (test code = 2217) 386 MG/DL BUN (test code = 2208) 11 MG/DL CREATININE (test code = 2214) 0.77 MG/DL eGFR AMER. (test code 99 ML/MIN/1.73 = 15889) eGFR NON- AMER. (test 86 ML/MIN/1.73 code = 29519) CALC BUN/CREAT (test code = 14 RATIO 2235) SODIUM (test code = 2231) 136 MEQ/L POTASSIUM (test code = 2228) 4.5 MEQ/L CHLORIDE (test code = 2215) 98 MEQ/L CARBON DIOXIDE (test code = 26 MEQ/L 2205) CALCIUM (test code = 2209) 9.7 MG/DL [...] code = 2219) 11 U/L COMPREHENSIVE METABOLIC [id number] 00:00:00 Test Item Value Reference Range Interpretation Comments GLUCOSE (test code = 2217) 386 MG/DL BUN (test code = 2208) 11 MG/DL CREATININE (test code = 2214) 0.77 MG/DL eGFR AMER. (test code 99 ML/MIN/1.73 = 46309) eGFR NON- AMER. (test 86 ML/MIN/1.73 code = 57448) CALC BUN/CREAT (test code = 14 RATIO 2235) SODIUM (test code = 2231) 136 MEQ/L POTASSIUM (test code = 2228) 4.5 MEQ/L CHLORIDE (test code = 2215) 98 MEQ/L CARBON DIOXIDE (test code = 26 MEQ/L 2205) CALCIUM (test code = 2209) 9.7 MG/DL [...] code = 2219) 11 U/L COMPREHENSIVE METABOLIC [id number] 00:00:00 Test Item Value Reference Range Interpretation Comments GLUCOSE (test code = 2217) 386 MG/DL BUN (test code = 2208) 11 MG/DL CREATININE (test code = 2214) 0.77 MG/DL eGFR AMER. (test code 99 ML/MIN/1.73 = 25121) eGFR NON- AMER. (test 86 ML/MIN/1.73 code = 89471) CALC BUN/CREAT (test code = 14 RATIO 2235) SODIUM (test code = 2231) 136 MEQ/L POTASSIUM (test code = 2228) 4.5 MEQ/L CHLORIDE (test code = 2215) 98 MEQ/L CARBON DIOXIDE (test code = 26 MEQ/L 2205) CALCIUM (test code = 2209) 9.7 MG/DL PROTEIN, TOTAL (test code = 7.3 G/DL 2228) ALBUMIN (test code = 2201) 4.2 G/DL CALC GLOBULIN (test code = 3.1 G/DL 2239) CALC A/G RATIO (test code = 1.4 RATIO 2233) BILIRUBIN, TOTAL (test code = 0.6 MG/DL 2206) ALKALINE PHOSPHATASE (test 88 U/L code = 2204) AST (test code = 2218) 14 U/L ALT (test code = 2219) 11 U/L LIPID [id number] 00:00:00 Test Item Value Reference Range Interpretation Comments CHOLESTEROL (test code = 2210) 223 MG/DL TRIGLYCERIDES (test code = 2232) 151 MG/DL HDL CHOLESTEROL (test code = 2220) 58 MG/DL CALC LDL CHOL (test code = 2237) 135 MG/DL RISK RATIO LDL/HDL (test code = 2.32 RATIO 2238) LIPID [id number] 00:00:00 Test Item Value Reference Range Interpretation Comments CHOLESTEROL (test code = 2210) 223 MG/DL TRIGLYCERIDES (test code = 2232) 151 MG/DL HDL CHOLESTEROL (test code = 2220) 58 MG/DL CALC LDL CHOL (test code = 2237) 135 MG/DL RISK RATIO LDL/HDL (test code = 2.32 RATIO 2238) HEMOGLOBIN [id number] 00:00:00 Test Item Value Reference Range Interpretation Comments HEMOGLOBIN A1c (test code = 96926) 11.5 % HEMOGLOBIN [id number] 00:00:00 Test Item Value Reference Range Interpretation Comments HEMOGLOBIN A1c (test code = 26084) 11.5 % HEMOGLOBIN [id number] 00:00:00 Test Item Value Reference Range Interpretation Comments HEMOGLOBIN A1c (test code = 99520) 11.5 % COMPREHENSIVE METABOLIC [id number] 00:00:00 Test Item Value Reference Range Interpretation Comments GLUCOSE (test code = 2217) 386 MG/DL BUN (test code = 2208) 11 MG/DL CREATININE (test code = 2214) 0.77 MG/DL eGFR AMER. (test code 99 ML/MIN/1.73 = 75947) eGFR NON- AMER. (test 86 ML/MIN/1.73 code = 14611) CALC BUN/CREAT (test code = 14 RATIO 2235) SODIUM (test code = 2231) 136 MEQ/L POTASSIUM (test code = 2228) 4.5 MEQ/L CHLORIDE (test code = 2215) 98 MEQ/L CARBON DIOXIDE (test code = 26 MEQ/L 2205) CALCIUM (test code = 2209) 9.7 MG/DL PROTEIN, TOTAL (test code = 7.3 G/DL 2228) ALBUMIN (test code = 2201) 4.2 G/DL CALC GLOBULIN (test code = 3.1 G/DL 2239) CALC A/G RATIO (test code = 1.4 RATIO 2234) BILIRUBIN, TOTAL (test code = 0.6 MG/DL 2206) ALKALINE PHOSPHATASE (test 88 U/L code = 2204) AST (test code = 2218) 14 U/L ALT (test code = 2219) 11 U/L COMPREHENSIVE METABOLIC [id number] 00:00:00 Test Item Value Reference Range Interpretation Comments GLUCOSE (test code = 2217) 386 MG/DL BUN (test code = 2208) 11 MG/DL CREATININE (test code = 2214) 0.77 MG/DL eGFR AMER. (test code 99 ML/MIN/1.73 = 94101) eGFR NON- AMER. (test 86 ML/MIN/1.73 code = 38774) CALC BUN/CREAT (test code = 14 RATIO [...] CALC GLOBULIN (test code = 3.1 G/DL 2239) CALC A/G RATIO (test code = 1.4 RATIO 2233) BILIRUBIN, TOTAL (test code = 0.6 MG/DL 2206) ALKALINE PHOSPHATASE (test 88 U/L code = 220) AST (test code = 2218) 14 U/L ALT (test code = 2219) 11 U/L
[2022-10-11 13:31] LABS: Urine Blood Negative (Negative); Urine Glucose 2+ (Negative); Urine Protein 1+ (Negative)
[2022-10-11 13:40] LABS: Urine Bacteria <20 /HPF (<20); Urine Mucus Slight /HPF (None Seen); Urine RBC <5 /HPF (None Seen)
[2022-10-11] MEDS ORDERED: MORPHINE 4 MG/ML SYR ONE (14:14)
[2022-10-11] MEDS ORDERED: ONDANSETRON 4 MG/2 ML VIAL ONE (14:14)
[2022-10-11] MEDS ORDERED: NA CHLORIDE 0.9% 1,000 ML ONE (14:15)
[2022-10-11 14:19] LABS: Absolute Lymphocytes (CBC) 1.3 K/uL (0.7-4.9); Hematocrit 35.3 % (36.0-45.0); Lymphocytes % 9.3 % (15.3-44.8); MCV 90.9 fL (80-100); MPV 8.9 fL (7.6-11.3); RBC Red Blood Cell Count 3.89 M/uL (3.86-4.86)
[2022-10-11 14:40] LABS: Albumin 3.3 g/dL (3.4-5.0); Bilirubin Total 0.3 mg/dL (0.2-1.0); Potassium 5.5 mmol/L (3.5-5.1); Protein, Total 6.7 g/dL (6.4-8.2)
--- NOTE | 2022-10-11 15:13 | RAD REPORT ---
EXAM DESCRIPTION: CT - Abdomen Pelvis W Contrast - 10/11/2022 2:55 pm CLINICAL HISTORY: Abdominal pain COMPARISON: April 2022 TECHNIQUE: Computed axial tomography of the abdomen pelvis was obtained. 100 cc [id number] was admin istered intravenously. Oral contrast was not requested which limits evaluation of bowel and appendix All CT scans are performed using dose optimization technique as appropriate and may include automated exposure control or mA/KV adjustment according to patient size. FINDINGS: Since the prior exam there has been further compression of an L5 vertebral body fracture. Compression is estimated to be 40%. Significant retropulsion of fracture fragment into the spinal can al is not noted. The liver, spleen, pancreas, adrenal and kidneys appear unremarkable. There is no evidence of diverticulitis. Moderate amount stool within the colon. No adnexal mass Small ventral hernia to the right of midline within the pelvis IMPRESSION: Progression of moderate compression fracture L5 vertebral body
[2022-10-11] MEDS ORDERED: HYDRALAZINE HCL 20 MG/ML VIAL ONE (15:46)
[2022-10-11] MEDS ORDERED: INSULIN -REGULAR HUMAN 50 UNIT/0.5 ML ML ONE (15:48)
--- NOTE | 2022-10-11 16:41 | EDPHYS ---
Physician Documentation [facility] Name: Chasidy Smith Age: 62 yrs Sex: Female : 1960 Arrival Date: 10/11/2022 Time: 12:43 Bed 6 Private MD: ED Physician Peterson Carranza HPI: 10/11 13:05 This 62 yrs old Female presents to ER via Ambulatory with complaints of Low jh7 Back Pain, abdominal pain. 13:05 The patient presents with pain that is chronic. The symptoms are located in the low jh7 back. Patient reports chronic low back pain since December for a lumbar compression fracture and abdominal pain for the past week. The patient states that she has multiple abdominal hernias and that Dr. Sweet told her that she needed surgery. The patient states that she is not willing to have surgery because Dr. Sweet scared her. Denies fever, nausea, vomiting, or diarrhea.. Historical: - Allergies: 16:16 No Known Allergies; kr3 - PMHx: 12:59 Diabetes - NIDDM; Hypertension; jh5 - Immunization history:: Adult Immunizations up to date. - Social history:: Smoking status: Patient denies any tobacco usage or history of. ROS: 13:05 Constitutional: Negative for fever, chills, and weight loss, Eyes: Negative for injury, jh7 pain, redness, and discharge, Neck: Negative for injury, pain, and swelling, Cardiovascular: Negative for chest pain, palpitations, and edema, Respiratory: Negative for shortness of breath, cough, wheezing, and pleuritic chest pain, MS/Extremity: Negative for injury and deformity, Skin: Negative for injury, rash, and discoloration, Neuro: Negative for headache, weakness, numbness, tingling, and seizure. 13:05 Abdomen/GI: Positive for abdominal pain, Negative for nausea, vomiting, and diarrhea, constipation, black/tarry stool. 13:05 Back: Positive for pain at rest, Negative for decreased range of motion. 13:05 All other systems are negative. Exam: 13:05 Constitutional: This is a well developed, well nourished patient who is awake, alert, jh7 and in no acute distress. Head/Face: Normocephalic, atraumatic. Neck: Trachea midline, no thyromegaly or masses palpated, and no cervical lymphadenopathy. Supple, full range of motion without nuchal rigidity, or vertebral point tenderness. No Meningismus. Cardiovascular: Regular rate and rhythm with a normal S1 and S2. No gallops, murmurs, or rubs. Normal PMI, no JVD. No pulse deficits. Respiratory: Lungs have equal breath sounds bilaterally, clear to auscultation and percussion. No rales, rhonchi or wheezes noted. No increased work of breathing, no retractions or nasal flaring. Skin: Warm, dry with normal turgor. Normal color with no rashes, no lesions, and no evidence of cellulitis. MS/ Extremity: Pulses equal, no cyanosis. Neurovascular intact. Full, normal range of motion. Neuro: Awake and alert, GCS 15, oriented to person, place, time, and situation. Motor strength 5/5 in all extremities. Sensory grossly intact. Normal gait. 13:05 Abdomen/GI: Inspection: abdomen appears normal, Bowel sounds: normal, in all quadrants, Palpation: soft, mild abdominal tenderness, in the umbilical area. 13:05 Back: pain, that is moderate, of the lumbar area, left low back and right low back, ROM is normal. Vital Signs: 12:56 BP 193 / 68; Pulse 87; Resp 18; Temp 98.4; Pulse Ox 96% ; Weight 63.5 kg; Height 5 ft. jh5 0 in. (152.40 cm); Pain 8/10; 16:15 BP 155 / 69; Pulse 93; Resp 15; Pulse Ox 99% ; kr3 16:55 BP 158 / 71; Pulse 88; Resp 16; Pulse Ox 98% ; bp 12:56 Body Mass Index 27.34 (63.50 kg, 152.40 cm) jh5 MDM: 12:58 Patient medically screened. 7 17:00 Differential diagnosis: arthritis, strain, fracture, Herniated disc Incarcerated jh7 hernia, strangulated hernia. Data reviewed: vital signs, nurses notes, lab test result(s), radiologic studies, CT scan. Consideration of Admission/Observation Escalation of care including admission/observation considered. The patient's pain decreased after medication administration and her blood sugar decreased to 197. I considered the following discharge prescriptions or medication management in the emergency department Medications were administered in the Emergency Department. See MAR. Historians other than the Patient: Daughter/Son: Daughter. Care significantly affected by the following chronic conditions: Diabetes. Counseling: I had a detailed discussion with the patient and/or guardian regarding: the historical points, exam findings, and any diagnostic results supporting the discharge/admit diagnosis, the need for outpatient follow up, Spine surgery. Response to treatment: the patient's symptoms have markedly improved after treatment. ED course: The patient states that her lumbar compression fracture is currently being reviewed because it is a workers comp injury. Stated that she had seen a surgeon who recommended surgery in the past but she is trying to get the surgery covered by her company. She states that she takes insulin daily but forgot to take her blood sugar today. Discussed management of blood glucose and the need to follow-up with orthospine. If the patient develops any new symptoms, she may return to the ER for further eval.. 10/11 13:04 Order name: CBC with Diff; Complete Time: 14:51 [facility] 10/11 13:04 Order name: CMP; Complete Time: 14:51 [facility] 10/11 13:04 Order name: Lipase; Complete Time: 14:51 [facility] 10/11 13:04 Order name: Urine Microscopic Only; Complete Time: 14:15 [facility] 10/11 13:31 Order name: Urine Dipstick-Ancillary; Complete Time: 13:39 [facility] 10/11 16:49 Order name: Glucose, Ancillary Testing; Complete Time: 16:57 [facility] 10/11 13:04 Order name: CT Abd/Pelvis - IV Contrast Only; Complete Time: 15:25 [facility] 10/11 13:04 Order name: IV Saline Lock; Complete Time: 14:06 [facility] 10/11 13:04 Order name: Labs collected and sent; Complete Time: 14:06 [facility] 10/11 13:04 Order name: Urine Dipstick-Ancillary (obtain specimen); Complete Time: 14:06 [facility] 10/11 16:16 Order name: Recheck Blood Sugar; Complete Time: 16:53 [facility] Administered Medications: 14:10 Drug: NS 0.9% 1000 ml Route: IV; Rate: 1 bolus; Site: right forearm; bp 16:53 Follow up: IV Status: Completed infusion; IV Intake: 1000ml bp 14:10 Drug: Zofran (Ondansetron) 4 mg Route: IVP; Site: right forearm; bp 16:53 Follow up: Response: No adverse reaction bp 14:10 Drug: morphine 4 mg Route: IVP; Infused Over: 4 mins; Site: right forearm; bp 16:53 Follow up: Response: No adverse reaction bp 15:41 Drug: Insulin Regular Human 10 units {Co-Signature: bp (Alex Tolliver RN).} Route: IVP; kr3 Site: Other; 16:53 Follow up: Response: Blood sugar is lowered bp 15:51 Drug: hydrALAZINE 10 mg Route: IVP; Site: right antecubital; kr3 16:53 Follow up: Response: No adverse reaction bp Disposition: 10/12 07:01 Co-signature as Attending Physician, Peterson Carranza MD. rn Disposition Summary: 10/11/22 16:40 Discharge Ordered Location: Home [facility] Problem: an ongoing problem [facility] Symptoms: have improved [facility] Condition: Stable [facility] Diagnosis - Low back pain jh7 - Hyperglycemia, unspecified jh7 - Other specified abdominal hernia without obstruction or gangrene [facility] Followup: [facility] - With: Private Physician - When: 2 - 3 days - Reason: Recheck today's complaints Discharge Instructions: - Discharge Summary Sheet jh7 - Chronic Back Pain jh7 - Spinal Compression Fracture jh7 - Hernia, Adult jh7 - Hyperglycemia [facility] Forms: - Medication Reconciliation Form [facility] - Thank You Letter [facility] Signatures: Dispatcher [employer] Milan Gimenez PA PA jmm Nieto, Roman, MD MD rn Peltier, Brian RN RN bp Dolores Mary RN RN 5 Nisa Lin, RESIDENTIAL INSTRUCTOR [place] [id number] Gladys Mcmillan RN RN kr3 Alex Tolliver RN bp
--- NOTE | 2022-10-11 16:41 | ER ---
Nurse's Notes [facility] Name: Chasidy Smith Age: 62 yrs Sex: Female : 1960 Arrival Date: 10/11/2022 Time: 12:43 Bed 6 Private MD: Diagnosis: Low back pain;Hyperglycemia, unspecified;Other specified abdominal hernia without obstruction or gangrene Presentation: 10/11 12:56 Chief complaint: Patient states: lower left back pain a few months ago, radiates down jh5 into left leg and belly pain and she has quite a few hernia's that she knows she needs surgery on. Coronavirus screen: Vaccine status: Patient reports receiving the 2nd dose of the covid vaccine. Client denies travel out of the [place] in the last 14 days. Ebola Screen: Patient negative for fever greater than or equal to 101.5 degrees Fahrenheit, and additional compatible Ebola Virus Disease symptoms Patient denies exposure to infectious person. Patient denies travel to an Ebola-affected area in the 21 days before illness onset. Initial Sepsis Screen: Does the patient meet any 2 criteria? No. Patient's initial sepsis screen is negative. Does the patient have a suspected source of infection? No. Patient's initial sepsis screen is negative. Risk Assessment: Do you want to hurt yourself or someone else? Patient reports no desire to harm self or others. Onset of symptoms was July 2022. 12:56 Method Of Arrival: Ambulatory [facility] 12:56 Acuity: RYAN 3 jh5 Triage Assessment: 12:59 General: Appears uncomfortable, slender, well groomed, well developed, Behavior is 5 calm, cooperative, appropriate for age. Pain: Complains of pain in back and abdomen. Historical: - Allergies: 16:16 No Known Allergies; kr3 - PMHx: 12:59 Diabetes - NIDDM; Hypertension; jh5 - Immunization history:: Adult Immunizations up to date. - Social history:: Smoking status: Patient denies any tobacco usage or history of. Screenin:14 [facility] ED Fall Risk Assessment (Adult) History of falling in the last 3 months, kr3 including since admission No falls in past 3 months (0 pts) Confusion or Disorientation No (0 pts) Intoxicated or Sedated No (0 pts) Impaired Gait No (0 pts) Mobility Assist Device Used No (0 pt) Altered Elimination No (0 pt) Score/Fall Risk Level 0 - 2 = Low Risk. Abuse screen: Denies threats or abuse. Nutritional screening: No deficits noted. Tuberculosis screening: No symptoms or risk factors identified. Vital Signs: 12:56 BP 193 / 68; Pulse 87; Resp 18; Temp 98.4; Pulse Ox 96% ; Weight 63.5 kg; Height 5 ft. jh5 0 in. (152.40 cm); Pain 8/10; 16:15 BP 155 / 69; Pulse 93; Resp 15; Pulse Ox 99% ; kr3 16:55 BP 158 / 71; Pulse 88; Resp 16; Pulse Ox 98% ; bp 12:56 Body Mass Index 27.34 (63.50 kg, 152.40 cm) 5 ED Course: 12:43 Patient arrived in ED. am2 12:58 Nisa Lin FNP [facility] jh7 12:58 Peterson Carranza MD is Attending Physician. jh7 12:59 Triage completed. 5 12:59 Arm band placed on right wrist. jh5 13:10 Bed in low position. Call light in reach. Side rails up X 1. kr3 13:29 Alex Tolliver, RN is Primary Nurse. bp 14:06 Inserted saline lock: 22 gauge in right forearm, using aseptic technique. Blood bp collected. 14:57 CT Abd/Pelvis - IV Contrast Only In Process Unspecified. EDMS 17:15 No provider procedures requiring assistance completed. IV discontinued, intact, kr3 bleeding controlled, No redness/swelling at site. Pressure dressing applied. Administered Medications: 14:10 Drug: NS 0.9% 1000 ml Route: IV; Rate: 1 bolus; Site: right forearm; bp 16:53 Follow up: IV Status: Completed infusion; IV Intake: 1000ml bp 14:10 Drug: Zofran (Ondansetron) 4 mg Route: IVP; Site: right forearm; bp 16:53 Follow up: Response: No adverse reaction bp 14:10 Drug: morphine 4 mg Route: IVP; Infused Over: 4 mins; Site: right forearm; bp 16:53 Follow up: Response: No adverse reaction bp 15:41 Drug: Insulin Regular Human 10 units {Co-Signature: bp (Alex Tolliver RN).} Route: IVP; kr3 Site: Other; 16:53 Follow up: Response: Blood sugar is lowered bp 15:51 Drug: hydrALAZINE 10 mg Route: IVP; Site: right antecubital; kr3 16:53 Follow up: Response: No adverse reaction bp Medication: 17:16 VIS not applicable for this client. kr3 Intake: 16:53 IV: 1000ml; Total: 1000ml. bp Outcome: 16:40 Discharge ordered by MD. merino 17:15 Discharged to home ambulatory. kr3 17:15 Condition: stable 17:15 Discharge instructions given to patient, Instructed on discharge instructions, follow up and referral plans. Demonstrated understanding of instructions, follow-up care. 17:16 Patient left the ED. kr3 Signatures: Dispatcher [employer] EDMS Negrita Lewis Brian, RN RN bp Dolores Mary RN RN jh5 Nisa Lin, COMIC ILLUSTRATOR COMIC ILLUSTRATOR 7 Gladys Mcmillan RN RN kr3 Alex Tolliver RN bp
[2022-10-11 17:20] VITALS: TEMP 98.4
[2022-10-11 17:22] VITALS: BP 158/71; O2SAT 98
[2022-10-11] MEDS ORDERED: HEPARIN 500 UNIT/5 ML SYR IV ONE (19:17)
== END 2022-10-11 17:16 | disposition home or self-care (01) ==
LOC: ER 12:42
DX: K45.8 Other specified abdominal hernia without obstruction or gangrene (principal); E11.65 Type 2 diabetes mellitus with hyperglycemia; I10 Essential (primary) hypertension
CPT/HCPCS: 36415; 74177; 80053; 81003; 81015; 82947; 83690; 85025; 99284; J0360; J1642; J1815; J2405; J7030; Q9967

== ENCOUNTER → 2023-08-30 | Emergency (ER) | payer SELFPAY ==
[2023-08-30 17:17] LABS: Absolute Lymphocytes (CBC) 2.5 K/uL (0.7-4.9); Hematocrit 33.3 % (36.0-45.0); Lymphocytes % 26.1 % (15.3-44.8); MCV 86.4 fL (80-100); Platelets 245 thou/uL (152-406); RBC Red Blood Cell Count 3.86 M/uL (3.86-4.86)
--- NOTE | 2023-08-30 17:23 | RAD REPORT ---
EXAM DESCRIPTION: RAD - Chest Single View - 08/30/2023 5:13 pm CLINICAL HISTORY: CHEST PAIN Chest pain. COMPARISON: Chest Single View dated 12/25/2022; Chest Single View dated 09/04/2020; Chest Single View dated 05/03/2018; Chest Single View dated 05/20/2017 FINDINGS: Portable technique limits examination quality. The lungs are grossly clear. The heart is normal in size. No displaced fractures. IMPRESSION: No acute intrathoracic process suspected.
[2023-08-30 17:31] LABS: Albumin 3.5 g/dL (3.4-5.0); Bilirubin Total 0.3 mg/dL (0.2-1.0); Potassium 3.9 mEq/L (3.5-5.1); Protein, Total 7.3 g/dL (6.4-8.2)
--- NOTE | 2023-08-30 18:01 | EDPHYS ---
Physician Documentation [facility] Name: Chasidy Smith Age: 63 yrs Sex: Female : 1960 Arrival Date: 08/30/2023 Time: 16:15 Bed 20 Private MD: AYLIN Physician Ag Dudley HPI: 08/31 01:00 This 63 yrs old Female presents to ER via Ambulatory with complaints of Breast kb Problem. 01:00 Patient is a 63-year-old female with a history of diabetes and hypertension who kb presents for bilateral breast pain that started on Tuesday. States she was taking a shower and rubbed her hands over the tops of her breast and they were both tender and firm. Denies fever or chills. Also reports tenderness to left upper quadrant. States she has no pain unless she touches the area. Denies nausea, vomiting, diarrhea, urinary symptoms.. Historical: - Allergies: 08/30 16:31 No Known Allergies; nj1 - PMHx: 16:31 Diabetes - NIDDM; Hypertension; nj1 - PSHx: 16:31 section; nj1 - Immunization history:: Client reports receiving the 2nd dose of the Covid vaccine. - Social history:: Smoking status: Patient denies any tobacco usage or history of. ROS: 08/31 00:57 Constitutional: Negative for fever, chills, and weight loss, kb Cardiovascular: Positive for Tenderness and firmness to bilateral breast, Abdomen/GI: Positive for abdominal pain, of the left upper quadrant, All other systems are negative, Exam: 00:58 Constitutional: This is a well developed, well nourished patient who is awake, alert, kb and in no acute distress. Head/Face: Normocephalic, atraumatic. ENT: Moist Mucous membranes Cardiovascular: Regular rate Respiratory: Respirations even and unlabored. No increased work of breathing. Talking in full sentences Skin: Warm, dry with normal turgor. Normal color. MS/ Extremity: Pulses equal, no cyanosis. Neurovascular intact. Full, normal range of motion. Neuro: Awake and alert, GCS 15, oriented to person, place, time, and situation. Moves all extremities. Normal gait. 00:58 Chest/axilla: Breasts: tenderness, that is moderate, in both breasts, Firmness to bilateral breast at 12:00, 00:58 Abdomen/GI: Inspection: abdomen appears normal, Bowel sounds: normal, Palpation: soft, in all quadrants, mild abdominal tenderness, in the left upper quadrant, Vital Signs: 08/30 16:24 BP 172 / 97; Pulse 96; Resp 18; Temp 99.1(O); Pulse Ox 98% ; Weight 62.14 kg; Height 5 nj1 ft. 0 in. ; Pain 8/10; 18:35 BP 166 / 85; Pulse 91; Resp 18; Pulse Ox 98% on R/A; ld1 16:24 Body Mass Index 26.75 (62.14 kg, 152.4 cm) [facility] 16:24 Pain Scale: Adult nj1 MDM: 16:19 Patient medically screened. kb 08/31 00:59 Differential diagnosis: Breast cancer, cellulitis, abscess. Data reviewed: vital signs, kb nurses notes. Test considered but Not performed: Ultrasound Ultrasound of breast considered but there is no redness or swelling. Tenderness and firmness is the same in both breasts. Patient educated on need for mammogram.. Counseling: I had a detailed discussion with the patient and/or guardian regarding the historical points, exam findings, and any diagnostic results supporting the discharge/admit diagnosis, lab results, radiology results, the need for outpatient follow up, a family practitioner, to return to the emergency department if symptoms worsen or persist or if there are any questions or concerns that arise at home. 08/30 16:27 Order name: CBC with Diff; Complete Time: 17:18 kb 08/30 16:27 Order name: CMP; Complete Time: 17:35 kb 08/30 16:27 Order name: Lipase; Complete Time: 17:35 kb 08/30 16:27 Order name: Chest Single View XRAY; Complete Time: 17:23 kb 08/30 16:27 Order name: IV Saline Lock; Complete Time: 17:04 kb 08/30 16:27 Order name: Labs collected and sent; Complete Time: 17:04 kb Administered Medications: No medications were administered Disposition Summary: 08/30/23 18:00 Discharge Ordered Notes: Location: Home kb Condition: Stable kb Diagnosis - Upper abdominal pain, unspecified kb - Breast tenderness kb - Other signs and symptoms in breast kb Followup: kb - With: Emergency Department - When: As needed - Reason: Worsening of condition Followup: kb - With: Private Physician - When: 2 - 3 days - Reason: Recheck today's complaints, Continuance of care, Re-evaluation by your physician Discharge Instructions: - Discharge Summary Sheet kb - Breast Self-Awareness, [id number] kb - Abdominal Pain, Adult, [id number] kb - Breast Tenderness kb - Mammogram, [id number] kb Forms: - Medication Reconciliation Form kb - Thank You Letter kb - Antibiotic Education kb - Prescription Opioid Use kb - Patient Portal Instructions kb - Leadership Thank You Letter kb Addendum: 09/01/2023 08:58 Co-signature as Attending Physician, Ag Dudley MD I reviewed the patient's care r t provided by the Advanced Practice Provider and agree with the diagnosis and treatment plan. Signatures: Dispatcher [employer] Kiah Farmer, PAPER WOOD CUTTER-C PAPER WOOD CUTTER-Ckb Ag Dudley MD MD rt Gayle Serrano, RN RN nj1
--- NOTE | 2023-08-30 18:01 | ER ---
Nurse's Notes [facility] Name: Chasidy Smith Age: 63 yrs Sex: Female : 1960 Arrival Date: 08/30/2023 Time: 16:15 Bed 20 Private MD: Diagnosis: Upper abdominal pain, unspecified;Breast tenderness;Other signs and symptoms in breast Presentation: 08/30 16:24 Chief complaint: Patient states: Bilateral breast pain, noted some hardness on Tuesday nj1 while she was showering. Left upper abdominal pain since September, severity changes but it is always there. Coronavirus screen: Vaccine status: Patient reports receiving the 2nd dose of the covid vaccine. Ebola Screen: Patient denies travel to an Ebola-affected area in the 21 days before illness onset. Risk Assessment: Do you want to hurt yourself or someone else? Patient reports no desire to harm self or others. Onset of symptoms was 2022. 16:24 Method Of Arrival: Ambulatory [facility] 16:24 Acuity: RYAN 3 nj1 18:42 Initial Sepsis Screen: Does the patient meet any 2 criteria? No. Patient's initial ld1 sepsis screen is negative. Does the patient have a suspected source of infection? No. Patient's initial sepsis screen is negative. Historical: - Allergies: 16:31 No Known Allergies; nj1 - PMHx: 16:31 Diabetes - NIDDM; Hypertension; nj1 - PSHx: 16:31 section; nj1 - Immunization history:: Client reports receiving the 2nd dose of the Covid vaccine. - Social history:: Smoking status: Patient denies any tobacco usage or history of. Screenin:04 [facility] ED Fall Risk Assessment (Adult) History of falling in the last 3 months, ld1 including since admission No falls in past 3 months (0 pts). Abuse screen: Denies threats or abuse. Denies injuries from another. Nutritional screening: No deficits noted. Tuberculosis screening: No symptoms or risk factors identified. Assessment: 17:04 General: Appears in no apparent distress. comfortable, Behavior is calm, cooperative, ld1 appropriate for age. Pain: Complains of pain in chest Pain does not radiate. Pain currently is 8 out of 10 on a pain scale. Quality of pain is described as throbbing, Pain began 2-3 days ago. Is continuous. Neuro: Level of Consciousness is awake, alert, obeys commands, Oriented to person, place, time, situation. Cardiovascular: Capillary refill < 3 seconds Patient's skin is warm and dry. Respiratory: Airway is patent Respiratory effort is even, unlabored. GI: Abdomen is flat, non-distended. : No signs and/or symptoms were reported regarding the genitourinary system. EENT: No signs and/or symptoms were reported regarding the EENT system. Derm: No signs and/or symptoms reported regarding the dermatologic system. Musculoskeletal: No signs and/or symptoms reported regarding the musculoskeletal system. 18:35 Reassessment: Patient appears in no apparent distress at this time. No changes from ld1 previously documented assessment. Patient and/or family updated on plan of care and expected duration. Pain level reassessed. Patient is alert, oriented x 3, equal unlabored respirations, skin warm/dry/pink. Vital Signs: 16:24 BP 172 / 97; Pulse 96; Resp 18; Temp 99.1(O); Pulse Ox 98% ; Weight 62.14 kg; Height 5 nj1 ft. 0 in. ; Pain 8/10; 18:35 BP 166 / 85; Pulse 91; Resp 18; Pulse Ox 98% on R/A; ld1 16:24 Body Mass Index 26.75 (62.14 kg, 152.4 cm) nj1 16:24 Pain Scale: Adult [facility] ED Course: 16:18 Patient arrived in ED. rg4 16:19 Kiah Darby FNP-C [facility]. kb 16:19 Ag Dudley MD is Attending Physician. kb 16:31 Triage completed. nj1 16:32 Arm band placed on right wrist. nj1 17:04 Celia Mesa, RADHA is Primary Nurse. ld1 17:04 Patient has correct armband on for positive identification. Placed in gown. Bed in low ld1 position. Call light in reach. Side rails up X2. compliance monitor on. Pulse ox on. NIBP on. Door closed. Noise minimized. Warm blanket given. 17:04 No provider procedures requiring assistance completed. Inserted saline lock: 20 gauge ld1 in right antecubital area, using aseptic technique. Blood collected. 17:14 Chest Single View XRAY In Process Unspecified. EDMS 18:42 IV discontinued, intact, bleeding controlled, No redness/swelling at site. ld1 Administered Medications: No medications were administered Medication: 17:04 VIS not applicable for this client. ld1 Outcome: 18:00 Discharge ordered by . roverto 18:42 Discharged to home ambulatory, with family, ld1 18:42 Condition: stable 18:42 Discharge instructions given to patient, family, Instructed on discharge instructions, follow up and referral plans. Demonstrated understanding of instructions, follow-up care, 18:42 Patient left the ED. ld1 Signatures: Dispatcher [employer] EDMS Kiah Darby, CAUL DRESSER-C CAUL DRESSER-Jane Boss rg4 Celia Mesa RN RN ld1 Gayle Serrano RN RN nj1 Corrections: (The following items were deleted from the chart) 16:33 16:24 Pulse 96bpm; Resp 18bpm; Pulse Ox 98%; Temp 99.1F Oral; 62.14 kg; Height 5 ft. 0 nj1 in.; BMI: 26.7; Pain 8/10, Adult; nj1
[2023-08-30 19:16] VITALS: TEMP 99.1; O2SAT 98
[2023-08-30 19:20] VITALS: BP 166/85
== END ==
LOC: ER 16:15
DX: N64.4 Mastodynia (principal); N64.59 Other signs and symptoms in breast; R10.10 Upper abdominal pain, unspecified
CPT/HCPCS: 36415; 71045; 80053; 83690; 85025; 99284

== ENCOUNTER → 2023-10-25 | Emergency (ER) | payer OTHER ==
[~2023-10-25] MED LIST: DIPHENHYDRAMINE 50 MG/ML VIAL ONE; KETOROLAC 30 MG/ML INJ ONE; METOCLOPRAMIDE 10 MG/2mL INJ ONE; cloNIDine HCL 0.1 MG TAB ONE
[2023-10-25 05:39] LABS: Absolute Lymphocytes (CBC) 1.7 K/uL (0.7-4.9); Hematocrit 35.7 % (36.0-45.0); Lymphocytes % 12.7 % (15.3-44.8); MCV 86.6 fL (80-100); MPV 8.5 fL (7.6-11.3); Platelets 294 thou/uL (152-406); Protime INR 1.03; RBC Red Blood Cell Count 4.12 M/uL (3.86-4.86)
[2023-10-25 05:51] LABS: Albumin 3.3 g/dL (3.4-5.0); Bilirubin Direct 0.1 mg/dL (0-0.2); Bilirubin Indirect, Calculated 0.3 mg/dL (0.2-0.8); Bilirubin Total 0.4 mg/dL (0.2-1.0); Potassium 3.8 mEq/L (3.5-5.1); Protein, Total 7.2 g/dL (6.4-8.2); Troponin High Sensitivity 7.5 pg/mL (<58.9)
[2023-10-25 05:53] LABS: SARS-CoV-2 Antigen Rapid Res Negative (Negative)
--- NOTE | 2023-10-25 06:45 | ER ---
Nurse's Notes [facility] Name: Chasidy Smith Age: 63 yrs Sex: Female : 1960 Arrival Date: 10/25/2023 Time: 03:46 Bed 8 Private MD: Diagnosis: Tension-type headache;Hypertensive urgency, feeling unwell overall Presentation: 10/25 03:55 Chief complaint: EMS states: STATES FAMILY CALLED THEM BECAUSE SHE WASN'T FEELING jj7 HERSELF. HER BLOOD SUGAR WAS 52 WHEN THEY ARRIVED. FAMILY STATES IT'S USUALLY IN THE 300s. PT WAS ALSO HYPERTENSIVE. Coronavirus screen: At this time, the client does not indicate any symptoms associated with coronavirus-19. Ebola Screen: No symptoms or risks identified at this time. Initial Sepsis Screen: Does the patient meet any 2 criteria? No. Patient's initial sepsis screen is negative. Does the patient have a suspected source of infection? No. Patient's initial sepsis screen is negative. Risk Assessment: Do you want to hurt yourself or someone else? Patient reports no desire to harm self or others. Onset of symptoms was October 24, 2023 at 22:30. Care prior to arrival: Medication(s) given: Glucagon, Nitroglycerin, 0.4 mg SL x 2, IV initiated. 20 GA, in the left antecubital area, Glucose check: 52. 03:55 Method Of Arrival: EMS: [facility] jj7 03:55 Acuity: RYAN 3 jj7 Triage Assessment: 03:55 General: Appears in no apparent distress. comfortable, Behavior is calm, cooperative, jj7 appropriate for age. Neuro: Reports dizziness, headache. Historical: - Allergies: 04:13 No Known Allergies; jj7 - PMHx: 04:13 Diabetes - NIDDM; Hypertension; jj7 - PSHx: 04:13 section; HERNIA REPAIR ( section); jj7 - Immunization history:: Adult Immunizations up to date, Client reports receiving the 2nd dose of the Covid vaccine. - Social history:: Smoking status: Patient denies any tobacco usage or history of. Patient/guardian denies using alcohol, street drugs. - Family history:: not pertinent. Screenin:55 [facility] ED Fall Risk Assessment (Adult) History of falling in the last 3 months, jj7 including since admission No falls in past 3 months (0 pts) Confusion or Disorientation No (0 pts) Intoxicated or Sedated No (0 pts) Impaired Gait No (0 pts) Mobility Assist Device Used No (0 pt) Altered Elimination No (0 pt) Score/Fall Risk Level 0 - 2 = Low Risk Oriented to surroundings, Maintained a safe environment, Educated pt \T\ family on fall prevention, incl call for assistance when getting out of bed. Abuse screen: Denies threats or abuse. Nutritional screening: No deficits noted. Tuberculosis screening: No symptoms or risk factors identified. Assessment: 03:55 Reassessment: SEE TRIAGE ASSESSMENT. [facility] 05:00 Reassessment: Patient appears in no apparent distress at this time. No changes from [facility] previously documented assessment. Patient and/or family updated on plan of care and expected duration. Pain level reassessed. Patient is alert, oriented x 3, equal unlabored respirations, skin warm/dry/pink. 05:00 Pain: Denies pain. [facility] 06:00 Reassessment: Patient appears in no apparent distress at this time. No changes from [facility] previously documented assessment. Patient and/or family updated on plan of care and expected duration. Pain level reassessed. Patient is alert, oriented x 3, equal unlabored respirations, skin warm/dry/pink. 07:00 Reassessment: Patient appears in no apparent distress at this time. Patient and/or [facility] family updated on plan of care and expected duration. Pain level reassessed. Patient is alert, oriented x 3, equal unlabored respirations, skin warm/dry/pink. Patient states feeling better. Vital Signs: 03:55 BP 136 / 80; Pulse 87; Resp 16; Temp 98.1; Pulse Ox 97% ; Weight 65.77 kg; Height 5 ft. [facility] 6 in. ; Pain 8/10; 05:00 BP 172 / 68; Pulse 83; Resp 17; Pulse Ox 99% ; 7 06:30 BP 169 / 73; Pulse 82; Resp 16 S; Pulse Ox 98% on R/A; jw7 03:55 Body Mass Index 23.40 (65.77 kg, 167.64 cm) [facility] 03:55 Pain Scale: Adult [facility] Severance Coma Score: 06:39 Eye Response: spontaneous(4). Motor Response: obeys commands(6). Verbal Response: sp4 oriented(5). Total: 15. NIH Stroke Scale Scores: 06:39 NIHSS Score: 0 sp4 ED Course: 03:55 Patient arrived in ED. jj7 03:55 Arm band placed on right wrist. Patient placed in an exam room, on a stretcher. jj7 03:55 Patient has correct armband on for positive identification. Bed in low position. Call jj7 light in reach. Side rails up X2. Adult w/ patient. Warm blanket given. 03:57 David Castillo MD is Attending Physician. sp4 04:13 Triage completed. jj7 04:46 XRAY Chest (1 view) In Process Unspecified. EDMS 05:00 Door closed. Lights dimmed. jj7 05:05 CT Head Brain wo Cont In Process Unspecified. EDMS 05:22 Influenza Screen (a \T\ B) Sent. jj7 05:22 SARS RAPID Sent. jj7 05:23 Troponin HS Sent. jj7 05:23 PT-INR Sent. jj7 05:23 NT PRO-BNP Sent. jj7 05:23 Magnesium Sent. jj7 05:23 LFT's Sent. jj7 05:23 CBC with Diff Sent. jj7 05:23 Basic Metabolic Panel Sent. jj7 07:06 No provider procedures requiring assistance completed. IV discontinued, intact, jw7 bleeding controlled, No redness/swelling at site. Pressure dressing applied. Administered Medications: 05:27 Drug: diphenhydrAMINE IVP 25 mg IVP once Route: IVP; Site: left antecubital; jj7 07:05 Follow up: Response: No adverse reaction jw7 05:28 Drug: Ketorolac IVP 15 mg IVP once Route: IVP; Site: left antecubital; jj7 07:05 Follow up: Response: No adverse reaction jw7 05:28 Drug: metoCLOPramide IVP 10 mg IVP once; over 1 to 2 minutes Route: IVP; Site: left [facility] antecubital; 07:05 Follow up: Response: No adverse reaction jw7 07:05 Drug: cloNIDine PO 0.1 mg PO once Route: PO; jw7 07:05 Follow up: Response: No adverse reaction jw7 Medication: 03:55 VIS not applicable for this client. jj7 Outcome: 06:44 Discharge ordered by . sp4 07:13 Discharged to home ambulatory, ld1 07:13 Condition: stable 07:13 Discharge instructions given to patient, Instructed on discharge instructions, follow up and referral plans. Demonstrated understanding of instructions, follow-up care, 07:13 Patient left the ED. ld1 NIH Stroke Scale - NIH Stroke Score Date: 10/25/2023 Time: 06:39 Total Score = 0 10. Dysarthria (speech clarity - read or repeat words) - 0(Normal) 11. Extinction and Inattention (visual/tactile/auditory/spatial/personal) - 0(No abnormality) 1a. Level of Consciousness (LOC) - 0(Alert) 1b. Level of Consciousness (LOC) (Month \T\ Age) - 0(Both) 1c. LOC Commands (Open \T\ Closes Eyes/Glove Sewer) - 0(Both) 2. Best Gaze (Lateral Gaze Paresis) - 0(Normal) 3. Visual Field Loss - 0(No visual loss) 4. Facial Palsy - 0(Normal) 5a. Left Arm: Motor (10-second hold) - 0(No drift) 5b. Right Arm: Motor (10-second hold) - 0(No drift) 6a. Left Leg: Motor (5-second hold - always test supine) - 0(No drift) 6b. Right Leg: Motor (5-second hold - always test supine) - 0(No drift) 7. Limb Ataxia (finger/nose \T\ heel/walls - test with eyes open) - 0(Absent) 8. Sensory Loss (pinprick arms/legs/face) - 0(Normal) 9. Best Language: Aphasia (description/naming/reading) - 0(No aphasia) Initials: sp4 Signatures: Dispatcher [employer] EDMS Celia Mesa RN RN ld1 Yisel Westbrook RN RN jw7 Johnson, Juwairiyah, RN RN jj7 Potepalov, Sergey, MD MD sp4 Corrections: (The following items were deleted from the chart) 07:06 06:00 BP 169 / 73; Pulse 82bpm; Resp 16bpm; Spontaneous; Pulse Ox 98% RA; dejuan jw7 07:07 05:00 Reassessment: Patient appears in no apparent distress at this time. No jw7 changes from previously documented assessment. Patient and/or family updated on plan of care and expected duration. Pain level reassessed. Patient is alert, oriented x 3, equal unlabored respirations, skin warm/dry/pink. jw7
--- NOTE | 2023-10-25 06:45 | EDPHYS ---
Physician Documentation [facility] Name: Chasidy Smith Age: 63 yrs Sex: Female : 1960 Arrival Date: 10/25/2023 Time: 03:46 Bed 8 Private MD: ED Physician David Castillo HPI: 10/25 03:57 This 63 yrs old Female presents to ER via Unassigned with complaints of Gen sp4 complaint. 03:57 No Known Allergies PMHx: Diabetes - NIDDM; Hypertension; PSHx: section; . sp4 06:39 This very pleasant 63-year-old female with history diabetes and hypertension presents sp4 with EMS for feeling unwell. 2:00 in the morning patient developed feeling of dizziness headache and also generalized unwellness. Patient presents with EMS for evaluation of the above symptoms. Patient reportedly had blood pressure in 200s systolic and at home blood sugar was low in the 60s. Minus have administered oral glucose to the patient. . Historical: - Allergies: 04:13 No Known Allergies; jj7 - PMHx: 04:13 Diabetes - NIDDM; Hypertension; jj7 - PSHx: 04:13 section; HERNIA REPAIR ( section); jj7 - Immunization history:: Adult Immunizations up to date, Client reports receiving the 2nd dose of the Covid vaccine. - Social history:: Smoking status: Patient denies any tobacco usage or history of. Patient/guardian denies using alcohol, street drugs. - Family history:: not pertinent. ROS: 06:39 Constitutional: Negative for fever, chills, and weight loss, positive elevated blood sp4 pressure positive feeling unwell positive headache 06:39 All other systems are negative, Exam: 06:39 Constitutional: This is a well developed, well nourished patient who is awake, alert, sp4 and in no acute distress. Head/Face: Normocephalic, atraumatic. Eyes: Pupils equal round and reactive to light, extra-ocular motions intact. Lids and lashes normal. Conjunctiva and sclera are not injected. Cornea within normal limits. Periorbital areas with no swelling, redness, or edema. ENT: Nares patent. No nasal discharge, no septal abnormalities noted. Tympanic membranes are normal and external auditory canals are clear. Oropharynx with no redness, swelling, or masses, exudates, or evidence of obstruction, uvula midline. Mucous membranes moist. Neck: Trachea midline, no thyromegaly or masses palpated, and no cervical lymphadenopathy. Supple, full range of motion without nuchal rigidity, or vertebral point tenderness. Chest/axilla: Normal chest wall appearance and motion. Nontender with no deformity. No lesions are appreciated. Cardiovascular: Regular rate and rhythm with a normal S1 and S2. No gallops, murmurs, or rubs. Normal PMI, no JVD. No pulse deficits. Respiratory: Lungs have equal breath sounds bilaterally, clear to auscultation and percussion. No rales, rhonchi or wheezes noted. No increased work of breathing, no retractions or nasal flaring. Abdomen/GI: Soft, non-tender, with normal bowel sounds. No distension or tympany. No guarding or rebound. No evidence of tenderness throughout. Back: No spinal tenderness. No costovertebral tenderness. Skin: Warm, dry with normal turgor. Normal color with no rashes, no lesions, and no evidence of cellulitis. MS/ Extremity: Pulses equal, no cyanosis. Neurovascular intact. Full, normal range of motion. Neuro: Awake and alert, GCS 15, oriented to person, place, time, and situation. Cranial nerves II-XII grossly intact. Motor strength 5/5 in all extremities. Sensory grossly intact. Psych: Awake, alert, with orientation to person, place and time. Behavior, mood, and affect are within normal limits 07:09 ECG was reviewed by the Attending Physician. 06:52 EKG at 0 652 reveals normal sinus sp4 rhythm at the rate of 80 Vital Signs: 03:55 BP 136 / 80; Pulse 87; Resp 16; Temp 98.1; Pulse Ox 97% ; Weight 65.77 kg; Height 5 ft. j 6 in. ; Pain 8/10; 05:00 BP 172 / 68; Pulse 83; Resp 17; Pulse Ox 99% ; jj7 06:30 BP 169 / 73; Pulse 82; Resp 16 S; Pulse Ox 98% on R/A; jw7 03:55 Body Mass Index 23.40 (65.77 kg, 167.64 cm) [facility] 03:55 Pain Scale: Adult [facility] NIH Stroke Scale Scores: 06:39 NIHSS Score: 0 sp4 Jonas Coma Score: 06:39 Eye Response: spontaneous(4). Motor Response: obeys commands(6). Verbal Response: sp4 oriented(5). Total: 15. MDM: 03:57 Patient medically screened. sp4 06:30 ED course: EXAM: CT CLINICAL HISTORY: CONFUSED COMPARISON: None. TECHNIQUE: CT HEAD sp4 WITHOUT IV CONTRAST on 10/25/2023 4:20 AM ROUGHER OPERATOR This exam was performed according to our departmental dose-optimization program, which includes automated exposure control, adjustment of the mA and/or kV according to patient size and/or use of iterative reconstruction technique. FINDINGS: There is no acute hemorrhage, mass effect or midline shift. Mckeon-white differentiation is preserved. There is no hydrocephalus. There is no significant volume loss for age. The calvarium is intact. Orbits and globes are unremarkable. The paranasal sinuses are clear. Mastoid air cells are clear. IMPRESSION: No acute intracranial findings. . ED course: EXAM DESCRIPTION: Chest Single View CLINICAL HISTORY: dizzy COMPARISON: None TECHNIQUE: Single AP view of the chest. FINDINGS: Lung volumes diminished. Cardiac silhouette is normal in size. No pneumothorax. No large pleural effusion. No focal consolidation. No acute bony finding. IMPRESSION: 1. No acute cardiopulmonary findings. 2. Low lung volumes with associated hypoventilatory changes.. 06:39 Differential Diagnosis altered mental status, sepsis, flu. Data reviewed: vital signs, sp4 nurses notes, EMS record, lab test result(s), radiologic studies, CT scan, plain films. Consideration of Admission/Observation Escalation of care including admission/observation considered. ED course: After management of the ER. Work up is basically negative. Patient was advised to continue her blood pressure medications at home. Also control her diabetes and see her primary physician in 7 to 10 days for repeat exam. . 10/25 04:20 Order name: Basic Metabolic Panel; Complete Time: 06: sp4 10/25 04:20 Order name: CBC with Diff; Complete Time: 06: sp4 10/25 04:20 Order name: LFT's; Complete Time: 06:27 sp4 10/25 04:20 Order name: Magnesium; Complete Time: : sp4 10/25 04:20 Order name: NT PRO-BNP; Complete Time: 06:27 sp4 02/13 04:20 Order name: PT-INR; Complete Time: 06:27 10/25 04:20 Order name: Troponin HS; Complete Time: 06:27 10/25 04:21 Order name: SARS RAPID; Complete Time: 06:10/25 04:21 Order name: Influenza Screen (a \T\ B) 10/25 04:20 Order name: XRAY Chest (1 view) 10/25 04:20 Order name: CT Head Brain wo Cont 10/25 04:20 Order name: EKG; Complete Time: 04:21 10/25 04:20 Order name: Cardiac monitoring; Complete Time: 05:10/25 04:20 Order name: EKG - Nurse/Tech; Complete Time: 07:07 10/25 04:20 Order name: IV Saline Lock; Complete Time: 05:10/25 04:20 Order name: Labs collected and sent; Complete Time: 05:10/25 04:20 Order name: O2 Per Protocol; Complete Time: 05:10/25 04:20 Order name: O2 Sat Monitoring; Complete Time: 05:23 EC:09 Rate is 83 beats/min. Rhythm is regular, Normal Sinus Rhythm. QRS [place] is Normal. AL sp4 interval is normal. QRS interval is normal. QT interval is normal. No Q waves. T waves are Normal. No ST changes noted. Clinical impression: Normal ECG. Interpreted by me. Reviewed by me. Administered Medications: 05:27 Drug: diphenhydrAMINE IVP 25 mg IVP once Route: IVP; Site: left antecubital; jj7 07:05 Follow up: Response: No adverse reaction jw7 05:28 Drug: Ketorolac IVP 15 mg IVP once Route: IVP; Site: left antecubital; jj7 07:05 Follow up: Response: No adverse reaction jw7 05:28 Drug: metoCLOPramide IVP 10 mg IVP once; over 1 to 2 minutes Route: IVP; Site: left j antecubital; 07:05 Follow up: Response: No adverse reaction jw7 07:05 Drug: cloNIDine PO 0.1 mg PO once Route: PO; jw7 07:05 Follow up: Response: No adverse reaction jw7 Disposition Summary: 10/25/23 06:44 Discharge Ordered Notes: Location: Home sp4 Problem: new sp4 Symptoms: have improved sp4 Condition: Stable sp4 Diagnosis - Tension-type headache sp4 - Hypertensive urgency, feeling unwell overall sp4 Followup: sp4 - With: Private Physician - When: 7 - 10 days - Reason: Recheck today's complaints Discharge Instructions: - Discharge Summary Sheet sp4 - Hypertension, Adult, [id number] sp4 Forms: - Patient Portal Instructions sp4 NIH Stroke Scale - NIH Stroke Score Date: 10/25/2023 Time: 06:39 Total Score = 0 10. Dysarthria (speech clarity - read or repeat words) - 0(Normal) 11. Extinction and Inattention (visual/tactile/auditory/spatial/personal) - 0(No abnormality) 1a. Level of Consciousness (LOC) - 0(Alert) 1b. Level of Consciousness (LOC) (Month \T\ Age) - 0(Both) 1c. LOC Commands (Open \T\ Closes Eyes/Investment Officer) - 0(Both) 2. Best Gaze (Lateral Gaze Paresis) - 0(Normal) 3. Visual Field Loss - 0(No visual loss) 4. Facial Palsy - 0(Normal) 5a. Left Arm: Motor (10-second hold) - 0(No drift) 5b. Right Arm: Motor (10-second hold) - 0(No drift) 6a. Left Leg: Motor (5-second hold - always test supine) - 0(No drift) 6b. Right Leg: Motor (5-second hold - always test supine) - 0(No drift) 7. Limb Ataxia (finger/nose \T\ heel/walls - test with eyes open) - 0(Absent) 8. Sensory Loss (pinprick arms/legs/face) - 0(Normal) 9. Best Language: Aphasia (description/naming/reading) - 0(No aphasia) Initials: sp4 Signatures: Dispatcher [employer] EDYisel Webster RN RN jw7 Jocelyne Dean RN RN jj7 David Castillo MD MD sp4
[2023-10-25 07:24] VITALS: BP 169/73; TEMP 98.1; O2SAT 98
--- NOTE | 2023-10-25 10:34 | RAD REPORT ---
EXAM DESCRIPTION: CT HEAD WITHOUT IV CONTRAST CLINICAL HISTORY: CONFUSED COMPARISON: None. TECHNIQUE: CT HEAD WITHOUT IV CONTRAST on 10/25/2023 4:20 AM LIFE SCIENCE TEACHER This exam was performed according to our departmental dose-optimization program, which includes autom ated exposure control, adjustment of the mA and/or kV according to patient size and/or use of iterati ve reconstruction technique. FINDINGS: There is no acute hemorrhage, mass effect or midline shift. Mckeon-white differentiation is preserved. There is no hydrocephalus. There is no significant volume loss for age. The calvarium is intact. Orbits and globes are unremarkable. The paranasal sinuses are clear. Mastoid air cells are clear. IMPRESSION: No acute intracranial findings. Electronically signed by: Remy Otto MD 10/25/2023 05:46 AM LIFE SCIENCE TEACHER Due to temporary technical issues with the PACS/Fluency reporting system, reports are being signed by the in house radiologist without review as a courtesy to ensure prompt reporting. The interpreting r adiologist is fully responsible for the content of the report.
--- NOTE | 2023-10-25 10:37 | RAD REPORT ---
EXAM DESCRIPTION: Chest Single View CLINICAL HISTORY: Dizzy COMPARISON: None TECHNIQUE: Single AP view of the chest. FINDINGS: Lung volumes diminished. Cardiac silhouette is normal in size. No pneumothorax. No large pleural effusion. No focal consolidation. No acute bony finding. IMPRESSION: 1. No acute cardiopulmonary findings. 2. Low lung volumes with associated hypoventilatory changes. Electronically signed by: Lacie Moncada MD 10/25/2023 05:48 AM PC INSTALLATION ENGINEER Due to temporary technical issues with the PACS/Fluency reporting system, reports are being signed by the in house radiologist without review as a courtesy to ensure prompt reporting. The interpreting r adiologist is fully responsible for the content of the report.
== END ==
LOC: ER 03:46
DX: G44.209 Tension-type headache, unspecified, not intractable (principal); I16.0 Hypertensive urgency; R53.81 Other malaise; I10 Essential (primary) hypertension; E11.9 Type 2 diabetes mellitus without complications; Z11.52 Encounter for screening for COVID-19
CPT/HCPCS: 93005; 85025; 80048; 36415; 83735; 85610; 80076; 84484; 83880; 87804 ×2; 70450; 71045; 87811; J2765; J1200

== ENCOUNTER 2024-02-04 05:09 | Emergency (ER) | payer OTHER ==
[2024-02-04 06:25] LABS: Absolute Lymphocytes (CBC) 2.2 K/uL (0.7-4.9); Absolute Monocytes 0.7 K/uL (0.1-1.3); Absolute Neutrophil 7.3 K/uL (1.8-8.0); Basophils % 0.4 % (0-1.3); Eosinophils % 0.4 % (0-4.4); Hemoglobin 13.5 g/dL (12.0-15.0); Lymphocytes % 21.6 % (15.3-44.8); MCH 30.2 pg (27.0-35.0); MCHC 33.7 g/dL (32.0-36.0); MCV 89.7 fL (80-100); Monocytes % 6.8 % (3.3-12.3); Neutrophils % 70.8 % (41.7-73.7); Nucleated Red Blood Cells % 0.1 % (0-0); Platelets 243 thou/uL (152-406); RBC Red Blood Cell Count 4.46 M/uL (3.86-4.86); Red Cell Distribution Width 13.8 % (12.1-15.2)
[2024-02-04 06:39] LABS: Albumin 3.9 g/dL (3.4-5.0); Anion Gap 13.6 mEq/L (5.0-15.0); Bilirubin Total 0.3 mg/dL (0.2-1.0); Globulin 4.1 g/dL (2.3-3.5); Potassium 3.6 mEq/L (3.5-5.1)
--- NOTE | 2024-02-04 07:05 | RAD REPORT ---
EXAM DESCRIPTION: CT - Head Brain Wo Cont - 02/04/2024 6:49 am CLINICAL HISTORY: DIZZINESS COMPARISON: Head Brain Wo Cont dated 10/25/2023; HEAD BRAIN W O CONTRAST dated 04/27/2014 TECHNIQUE: All CT scans are performed using dose optimization technique as appropriate and may inclu de automated exposure control or mA/KV adjustment according to patient size. FINDINGS: No intracranial hemorrhage, hydrocephalus or extra-axial fluid collection.No areas of brai n edema or evidence of midline shift. Mild chronic small vessel ischemic changes. The paranasal sinuses and mastoids are clear. The calvarium is intact. IMPRESSION: No acute intracranial abnormality.
--- NOTE | 2024-02-04 07:11 | EDPHYS ---
Physician Documentation [facility] Name: Chasidy Smith Age: 63 yrs Sex: Female : 1960 Arrival Date: 02/04/2024 Time: 05:09 Bed 14 Private MD: ED Physician Devante Gilliam HPI: 02/03 06:27 This 63 yrs old Female presents to ER via EMS with complaints of Low Blood sp3 Sugar. 06:27 . sp3 06:30 63-year-old female with a history of diabetes and prior CVA now presents to the ED with sp3 chief complaint altered mental status. Patient yesterday took her insulin in the evening but did not eat dinner. Her son found her this morning at approximately 4 AM due to them scheduled to go out of town altered and not responding. He activated EMS who arrived to find patient hypoglycemic at 36 and administered D10 which point patient awoke. They transported her here without further incident. Vital signs were normal except for high blood pressure. Patient denies any symptoms except for mild confusion and "dizziness". She denies chest pain, neck pain, shortness of breath, abdominal pain, nausea, vomiting, diarrhea, or any other signs or symptoms on ROS at this time.. Historical: - Allergies: 05:17 No Known Allergies; pf1 - PMHx: 05:17 Diabetes - NIDDM; Hypertension; pf1 - PSHx: 05:17 section; hernia repair (an); pf1 - Immunization history:: Adult Immunizations not up to date, Client reports receiving the 2nd dose of the Covid vaccine, pfizer Last tetanus immunization: > 10 years ago Flu vaccine is not up to date. - Infectious Disease History:: Denies. - Social history:: Smoking status: Patient denies any tobacco usage or history of. Patient/guardian denies using alcohol, street drugs. ROS: 06:32 Constitutional: Negative for fever, chills, and weight loss, Eyes: Negative for injury, sp3 pain, redness, and discharge, Neck: Negative for injury, pain, and swelling, Cardiovascular: Negative for chest pain, palpitations, and edema, Respiratory: Negative for shortness of breath, cough, wheezing, and pleuritic chest pain, Abdomen/GI: Negative for abdominal pain, nausea, vomiting, diarrhea, and constipation, Back: Negative for injury and pain, MS/Extremity: Negative for injury and deformity, Skin: Negative for injury, rash, and discoloration, Psych: Negative for depression, anxiety, suicide ideation, homicidal ideation, and hallucinations, Allergy/Immunology: Negative for hives, rash, and allergies, Hematologic/Lymphatic: Negative for swollen nodes, abnormal bleeding, and unusual bruising, 06:32 All other systems are negative, Exam: 06:32 Constitutional: This is a well developed, well nourished patient who is awake, alert, sp3 and in no acute distress. Head/Face: Normocephalic, atraumatic. Eyes: Pupils equal round and reactive to light, extra-ocular motions intact. Lids and lashes normal. Conjunctiva and sclera are non-icteric and not injected. Cornea within normal limits. Periorbital areas with no swelling, redness, or edema. ENT: Nares patent. No nasal discharge, no septal abnormalities noted. External auditory canals are clear. Oropharynx with no redness, swelling, or masses, exudates, or evidence of obstruction, uvula midline. Mucous membranes moist. Neck: Trachea midline, no thyromegaly or masses palpated, and no cervical lymphadenopathy. Supple, full range of motion without nuchal rigidity, or vertebral point tenderness. No Meningismus. Chest/axilla: Normal chest wall appearance and motion. Nontender with no deformity. No lesions are appreciated. Cardiovascular: Regular rate and rhythm with a normal S1 and S2. No gallops, murmurs, or rubs. Normal PMI, no JVD. No pulse deficits. Respiratory: Lungs have equal breath sounds bilaterally, clear to auscultation and percussion. No rales, rhonchi or wheezes noted. No increased work of breathing, no retractions or nasal flaring. Abdomen/GI: Soft, non-tender, with normal bowel sounds. No distension or tympany. No guarding or rebound. No evidence of tenderness throughout. Back: No spinal tenderness. No costovertebral tenderness. Full range of motion. Skin: Warm, dry with normal turgor. Normal color with no rashes, no lesions, and no evidence of cellulitis. MS/ Extremity: Pulses equal, no cyanosis. Neurovascular intact. Full, normal range of motion. Neuro: Awake and alert, GCS 15, oriented to person, place, time, and situation. Cranial nerves II-XII grossly intact. Motor strength 5/5 in all extremities. Sensory grossly intact. Cerebellar exam normal. Normal gait. Psych: Awake, alert, with orientation to person, place and time. Behavior, mood, and affect are within normal limits. 06:32 ECG was reviewed by the Attending Physician. EKG demonstrates normal sinus rhythm at 91 bpm with QTc 496 otherwise normal intervals, normal axis, normal QRS, nonspecific diffuse ST's ST changes without evidence of acute ischemia. Prolonged QT noted. Vital Signs: 05:17 BP 213 / 122; Pulse 96; Resp 18; Temp 98; Pulse Ox 100% ; Weight 71.5 kg; Height 5 ft. pf1 0 in. ; Pain 0/10; 06:00 BP 187 / 81; Pulse 87; Resp 16; Pulse Ox 100% on R/A; Pain 0/10; pf1 06:30 BP 183 / 87; Pulse 87; Resp 20; Pulse Ox 99% on R/A; Pain 0/10; pf1 07:00 BP 197 / 85; Pulse 89; Resp 18; Temp 98; Pulse Ox 99% on R/A; db 05:17 Body Mass Index 30.78 (71.50 kg, 152.4 cm) pf1 05:17 Pain Scale: Adult pf1 06:00 Pain Scale: Adult pf1 06:30 Pain Scale: Adult pf1 06:[address] Rico of patient's BP. No new orders at this time. pf1 MDM: 05:28 Patient medically screened. sp3 06:33 Data reviewed: vital signs, nurses notes, EMS record, lab test result(s), EKG, sp3 radiologic studies. ED course: 63-year-old female with altered mental status and hypoglycemia now resolved. Differential diagnosis most likely hypoglycemia however cannot fully rule out CVA/TIA spectrum coexisting given her continued dizziness and "not feeling right". Laboratory values are pending. CT scan of the head is also pending. If workup is negative we will safely discharge patient home status her preference. Blood pressure without intervention is already come down to 187 systolic. Will defer to PCP for blood pressure control given multiple reasons why her current medical state could be affecting her BP. I discussed all of this with patient and family. I have also educated her on proper insulin usage and nonusage when she does not plan on eating. She acknowledged and verbalized this education back to me.. 02/03 05:23 Order name: CBC with Diff; Complete Time: 06:45 cm10 02/03 05:23 Order name: CMP; Complete Time: 06:45 cm10 02/03 05:28 Order name: Troponin High Sensitivity; Complete Time: 06:45 cm10 02/03 05:36 Order name: Glucose, Ancillary Testing; Complete Time: 06:17 EDMS 02/03 06:24 Order name: CT Head Brain wo Cont; Complete Time: 07:09 sp3 02/03 05:23 Order name: EKG; Complete Time: 05:24 cm10 02/03 05:23 Order name: EKG - Nurse/Tech; Complete Time: 05:50 cm10 02/03 05:23 Order name: Accucheck; Complete Time: 05:50 cm10 02/03 06:30 Order name: Recheck Vital Signs; Complete Time: 07:20 sp3 Administered Medications: No medications were administered Disposition Summary: 02/04/24 07:11 Discharge Ordered Notes: Location: Home douglas Problem: new douglas Symptoms: have improved douglas Condition: Stable douglas Diagnosis - Adverse effect of insulin and oral hypoglycemic [antidiabetic] drugs douglas - Diabetes mellitus due to underlying condition with hypoglycemia douglas - Hypoglycemia, unspecified douglas Followup: douglas - With: Private Physician - When: 2 - 3 days - Reason: Recheck today's complaints, Continuance of care, Re-evaluation by your physician Discharge Instructions: - Discharge Summary Sheet douglas - Hypoglycemia douglas - Blood Glucose Monitoring, Adult douglas - Hypoglycemia, [id number] douglas Forms: - Medication Reconciliation Form douglas - Antibiotic Education douglas - Prescription Opioid Use douglas - Patient Portal Instructions douglas - Leadership Thank You Letter douglas - Family Work Release eb Signatures: Dispatcher [employer] Devante Silva MD MD cha Patel, Setul, MD MD sp3 Mine Jane, RADHA RN pf1 Noelle Sweet RN RN cm10
--- NOTE | 2024-02-04 07:11 | ER ---
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 EMS stated gave patient D10 200ml repeat FSBGL 237. Patient's FSBGL in triage 147. 05:17 Coronavirus screen: Vaccine status: Patient reports receiving the 2nd dose of the covid pf1 vaccine. pfizer Client denies travel out of the [place] in the last 14 days. At this time, the client does not indicate any symptoms associated with coronavirus-19. Ebola Screen: Patient negative for fever greater than or equal to 101.5 degrees Fahrenheit, and additional compatible Ebola Virus Disease symptoms. Initial Sepsis Screen: Does the patient meet any 2 criteria? No. Patient's initial sepsis screen is negative. Does the patient have a suspected source of infection? No. Patient's initial sepsis screen is negative. Risk Assessment: Do you want to hurt yourself or someone else?. Onset of symptoms was February 04, 2024. 05:17 Method Of Arrival: EMS: [facility] pf1 05:17 Acuity: RYAN 2 pf1 Triage Assessment: 05:17 General: Appears in no apparent distress. comfortable, well groomed, well developed, pf1 Behavior is calm, cooperative, appropriate for age, quiet. 05:17 Pain: Denies pain. EENT: No deficits noted. No signs and/or symptoms were reported pf1 regarding the EENT system. Neuro: Level of Consciousness is awake, alert, obeys commands, Oriented to person, place, time, situation, patient was unresponsive SPECTRAL SCIENTIST with FSBGL 39. Cardiovascular: No deficits noted. Capillary refill < 3 seconds Patient's skin is warm and dry. Respiratory: No deficits noted. Airway is patent Respiratory effort is even, unlabored, Respiratory pattern is regular, symmetrical, Breath sounds are clear bilaterally. GI: No deficits noted. Abdomen is round non-distended. : No deficits noted. No signs and/or symptoms were reported regarding the genitourinary system. Derm: No deficits noted. No signs and/or symptoms reported regarding the dermatologic system. Musculoskeletal: No deficits noted. No signs and/or symptoms reported regarding the musculoskeletal system. Historical: - Allergies: 05:17 No Known Allergies; pf1 - PMHx: 05:17 Diabetes - NIDDM; Hypertension; pf1 - PSHx: 05:17 section; hernia repair (an); pf1 - Immunization history:: Adult Immunizations not up to date, Client reports receiving the 2nd dose of the Covid vaccine, [employer] Last tetanus immunization: > 10 years ago Flu vaccine is not up to date. - Infectious Disease History:: Denies. - Social history:: Smoking status: Patient denies any tobacco usage or history of. Patient/guardian denies using alcohol, street drugs. Screenin:20 [facility] ED Fall Risk Assessment (Adult) History of falling in the last 3 months, pf1 including since admission No falls in past 3 months (0 pts) Confusion or Disorientation No (0 pts) Intoxicated or Sedated No (0 pts) Impaired Gait Yes (1 pt) Mobility Assist Device Used No (0 pt) Altered Elimination No (0 pt) Score/Fall Risk Level 0 - 2 = Low Risk Oriented to surroundings, Maintained a safe environment, Educated pt \T\ family on fall prevention, incl call for assistance when getting out of bed, Assessed \T\ reinforced patient's understanding of fall precautions, Provided non-skid footwear, Hourly rounding (assess needs \T\ fall precautionary measures) done, Used ambulatory aids as needed (educated on \T\ assisted with), Used gait belt as appropriate. Abuse screen: Denies threats or abuse. Nutritional screening: No deficits noted. Tuberculosis screening: No symptoms or risk factors identified. Assessment: 05:17 Reassessment: see triage assessment. pf1 06:00 Reassessment: Patient appears in no apparent distress at this time. Patient and/or pf1 family updated on plan of care and expected duration. Pain level reassessed. Patient is alert, oriented x 3, equal unlabored respirations, skin warm/dry/pink. Patient states symptoms have improved. 07:13 Reassessment: Patient appears in no apparent distress at this time. Patient and/or db family updated on plan of care and expected duration. Pain level reassessed. Patient is alert, oriented x 3, equal unlabored respirations, skin warm/dry/pink. Patient states feeling better. Patient states symptoms have improved. 07:20 Reassessment: No changes from previously documented assessment. provider notified of rs5 latest vitals. Vital Signs: 05:17 BP 213 / 122; Pulse 96; Resp 18; Temp 98; Pulse Ox 100% ; Weight 71.5 kg; Height 5 ft. pf1 0 in. ; Pain 0/10; 06:00 BP 187 / 81; Pulse 87; Resp 16; Pulse Ox 100% on R/A; Pain 0/10; pf1 06:30 BP 183 / 87; Pulse 87; Resp 20; Pulse Ox 99% on R/A; Pain 0/10; pf1 07:00 BP 197 / 85; Pulse 89; Resp 18; Temp 98; Pulse Ox 99% on R/A; db 05:17 Body Mass Index 30.78 (71.50 kg, 152.4 cm) pf1 05:17 Pain Scale: Adult pf1 06:00 Pain Scale: Adult pf1 06:30 Pain Scale: Adult pf1 06:[address] Rico of patient's BP. No new orders at this time. pf1 ED Course: 05:17 Patient arrived in ED. pf1 05:17 Arm band placed on left wrist. pf1 05:20 Patient has correct armband on for positive identification. Bed in low position. Call rs5 light in reach. Side rails up X2. Adult w/ patient. 05:25 Triage completed. pf1 05:28 Stefanie Rico MD is Attending Physician. sp3 05:30 No provider procedures requiring assistance completed. Maintain EMS IV. Dressing pf1 intact. Good blood return noted. Site clean \T\ dry. Gauge \T\ site: 20 gauge to RAC. 06:49 CT Head Brain wo Cont In Process Unspecified. EDMS 07:00 Attending Physician role handed off by Stefanie Rico MD douglas 07:00 Devante Gillima MD is Attending Physician. douglas 07:12 Getachew Garcia, RADHA is Primary Nurse. rs5 07:15 Devante Gilliam MD is Attending Physician. douglas 07:24 IV discontinued, intact, bleeding controlled, No redness/swelling at site. db 07:24 Provided Education on: DISCHARGE. Client placed on continuous cardiac and pulse db oximetry monitoring. NIBP monitoring applied. box inspector on. Pulse ox on. NIBP on. Warm blanket given. Pillow given. Administered Medications: No medications were administered Medication: 05:20 VIS not applicable for this client. rs5 Outcome: 07:11 Discharge ordered by . douglas 07:24 Discharged to home via wheelchair, with family, yodit 07:24 Condition: stable 07:24 Discharge instructions given to patient, family, Instructed on discharge instructions, follow up and referral plans. 07:25 Patient left the ED. db Signatures: Dispatcher [employer] EDMS Devante Gilliam MD MD cha Patel, Setul, MD MD sp3 Jia Mccoy RN RN Mine Scanlon RN RN pf1 Getachew Garcia RN RN rs5 Corrections: (The following items were deleted from the chart) 06:47 06:13 Triage completed. pf1 pf1 07:06 06:00 BP 187 / 81; Pulse 87bpm; Resp 16bpm; Pulse Ox 100% RA; Pain 0/10, Adult; pf1 pf1 07:46 07:40 Reassessment: No changes from previously documented assessment. report given to [facility] at bedside. rs5 :46 07:40 Reassessment: No changes from previously documented assessment. . rs5 rs5 07:46 07:20 Reassessment: No changes from previously documented assessment. . rs5 rs5
[2024-02-04 07:31] VITALS: TEMP 98
[2024-02-04 07:49] VITALS: BP 197/85; O2SAT 99
--- NOTE | 2024-02-07 14:25 | EKG ---
Test Date: 2024-02-04 Test Time: 05:36:26 Contract Associate Manager: MELINDA MEASUREMENT RESULTS: Intervals: Rate: 91 WA: 178 QRSD: 80 QT: 404 QTc: 496 [place]: P: 54 WA: 178 QRS: 79 T: -5 INTERPRETIVE STATEMENTS: Normal sinus rhythm ST abnormality, possible digitalis effect Prolonged QT Abnormal ECG Compared to ECG 10/25/2023 06:52:38 ST (T wave) deviation now present Prolonged QT interval now present Electronically Signed On 02-07-24 14:14:53 CDT by Laurent Rosario
== END 2024-02-04 07:25 | disposition home or self-care (01) ==
LOC: ER 05:09
DX: E11.649 Type 2 diabetes mellitus with hypoglycemia without coma (principal); T38.3X5A Adverse effect of insulin and oral hypoglycemic [antidiabetic] drugs, initial encounter; I10 Essential (primary) hypertension
CPT/HCPCS: 36415; 70450; 80053; 82947; 84484; 85025; 93005; 99284

== ENCOUNTER 2024-09-03 17:15 | Emergency (ER) | payer OTHER ==
[2024-09-03 17:44] LABS: Absolute Eosinophils 0.1 K/uL (0-0.5); Absolute Lymphocytes (CBC) 1.8 K/uL (0.7-4.9); Absolute Monocytes 0.5 K/uL (0.1-1.3); Absolute Neutrophil 6.7 K/uL (1.8-8.0); Basophils % 0.5 % (0-1.3); Eosinophils % 0.8 % (0-4.4); Hematocrit 33.4 % (36.0-45.0); Hemoglobin 11.2 g/dL (12.0-15.0); Lymphocytes % 19.2 % (15.3-44.8); MCHC 33.5 g/dL (32.0-36.0); MCV 92.7 fL (80-100); MPV 8.4 fL (7.6-11.3); Monocytes % 5.9 % (3.3-12.3); Neutrophils % 73.6 % (41.7-73.7); Platelets 226 thou/uL (152-406); RBC Red Blood Cell Count 3.61 M/uL (3.86-4.86); Red Cell Distribution Width 13.6 % (12.1-15.2)
[2024-09-03 17:53] LABS: Sqamous Epithelial <5 /HPF (None Seen); Urine Bacteria <20 /HPF (<20); Urine Bilirubin NEGATIVE (Negative); Urine Blood Negative (Negative); Urine Clarity Turbid (Clear); Urine Color Colorless (Yellow); Urine Crystals Unidentified Few /HPF (None Seen); Urine Culture Reflex Order REFLEXED; Urine Glucose NEGATIVE (Negative); Urine Ketones NEGATIVE (Negative); Urine Microscopic Reflex YN ORDER UMIC; Urine Mucus Slight /HPF (None Seen); Urine Nitrite 2+ (Negative); Urine Protein 2+ (Negative); Urine RBC <5 /HPF (None Seen); Urine Urobilinogen Normal (Normal); Urine WBC Clump Rare /HPF (None Seen); Urine Yeast (Budding) Trace /HPF (None Seen)
[2024-09-03 17:57] LABS: Anion Gap 10.6 mEq/L (5.0-15.0); Potassium 4.6 mEq/L (3.5-5.1)
--- NOTE | 2024-09-03 18:16 | ER ---
Nurse's Notes [facility] Name: Chasidy Smith Age: 64 yrs Sex: Female : 1960 Arrival Date: 09/03/2024 Time: 17:15 Bed 13 Private MD: Diagnosis: Hypoglycemia, unspecified Presentation: 09/03 17:21 Chief complaint: EMS states: they were toned out for AMS. daughter reports patient kc6 taking her fast acting insulin prior to eating. BGL on scene = 50. pt was given oral glucose and BGL increased to 101. Coronavirus screen: At this time, the client does not indicate any symptoms associated with coronavirus-19. Ebola Screen: No symptoms or risks identified at this time. Initial Sepsis Screen: Does the patient meet any 2 criteria? HR > 90 bpm. Does the patient have a suspected source of infection? No. Patient's initial sepsis screen is negative. Risk Assessment: Do you want to hurt yourself or someone else? Patient reports no desire to harm self or others. Onset of symptoms was September 03, 2024. 17:21 Method Of Arrival: EMS: [facility] 6 17:21 Acuity: RYAN 2 kc6 17:22 Care prior to arrival: Medication(s) given: Glucagon, IV initiated. 20 GA, in the right kc6 forearm, Glucose check: 50. Historical: - Allergies: 17:22 No Known Allergies; kc6 - PMHx: 17:22 Hypertension; Diabetes - NIDDM; kc6 - PSHx: 17:22 section; hernia repair; kc6 - Immunization history:: Adult Immunizations up to date. - Infectious Disease History:: Denies. - Social history:: Smoking status: Patient denies any tobacco usage or history of. Screenin:28 [facility] ED Fall Risk Assessment (Adult) History of falling in the last 3 months, kc6 including since admission No falls in past 3 months (0 pts) Confusion or Disorientation No (0 pts) Intoxicated or Sedated No (0 pts) Impaired Gait No (0 pts) Mobility Assist Device Used No (0 pt) Altered Elimination No (0 pt) Score/Fall Risk Level 0 - 2 = Low Risk Oriented to surroundings, Maintained a safe environment. Abuse screen: Denies threats or abuse. Denies injuries from another. Nutritional screening: No deficits noted. Tuberculosis screening: No symptoms or risk factors identified. Vital Signs: 17:21 BP 179 / 93; Pulse 93; Resp 16 S; Pulse Ox 100% on R/A; Weight 69.85 kg (M); Height 5 6 ft. 0 in. (R); Pain 0/10; 17:21 Body Mass Index 30.08 (69.85 kg, 152.4 cm) [facility] 17:21 Pain Scale: Adult [facility] ED Course: 17:21 Patient arrived in ED. 6 17:22 Triage completed. 6 17:22 Arm band placed on. 6 17:23 Jose De Jesus Trujillo MD is Attending Physician. bo1 17:23 Maintain EMS IV. Dressing intact. Good blood return noted. Site clean \T\ dry. Gauge \T\ minerva 6 site: 20G RAC. Flushed with 10 mL NS. 17:25 Kiah Darby F[facility]-C [facility]. kb 17:27 Opal Tyson RN is Primary Nurse. [facility] 17:27 Patient has correct armband on for positive identification. Bed in low position. Call [facility] light in reach. Side rails up X2. Adult w/ patient. Pulse ox on. NIBP on. Door closed. Noise minimized. Lights dimmed. Warm blanket given. Pillow given. Diet: Patient given snack. Patient given juice. Tolerated well. 17:38 BMP Sent. kc6 18:33 IV discontinued, intact, bleeding controlled, No redness/swelling at site. Pressure me1 dressing applied. Administered Medications: No medications were administered Outcome: 18:15 Discharge ordered by . kb 18:33 Discharged to home ambulatory, with family, me1 18:33 Condition: stable 18:33 Discharge instructions given to patient, family, Instructed on discharge instructions, follow up and referral plans. Demonstrated understanding of instructions, follow-up care, 18:33 Patient left the ED. me1 Signatures: Kiah Darby FNP-C FNP-Ckb Campbell, Kaitlyn, RADHA GARCIA [facility] Angelita Reina RN RN me1 Jose De Jesus Trujillo MD MD bo1
--- NOTE | 2024-09-03 18:16 | EDPHYS ---
Physician Documentation [facility] Name: Chasidy Smith Age: 64 yrs Sex: Female : 1960 Arrival Date: 09/03/2024 Time: 17:15 Bed 13 Private MD: ED Physician Jose De Jesus Trujillo HPI: 09/03 17:46 This 64 yrs old Female presents to ER via EMS with complaints of Low Blood kb Sugar. 17:46 Pt is a 64 year old female who presents for low blood sugar. Family states she gave kb herself her fast acting insulin and didn't eat. Family found pt altered at the table and called EMS. EMS reports BGL of 50 upon their arrival and pt was altered. They gave oral glucose, which increased sugar to 110 and pt is now awake, alert and oriented x3. Pt states she feels fine now and wants to go home. . Historical: - Allergies: 17:22 No Known Allergies; kc6 - PMHx: 17:22 Hypertension; Diabetes - NIDDM; kc6 - PSHx: 17:22 section; hernia repair; kc6 - Immunization history:: Adult Immunizations up to date. - Infectious Disease History:: Denies. - Social history:: Smoking status: Patient denies any tobacco usage or history of. ROS: 17:45 Constitutional: As per HPI kb Exam: 17:45 Constitutional: This is a well developed, well nourished patient who is awake, alert, kb and in no acute distress. Head/Face: Normocephalic, atraumatic. ENT: Moist Mucous membranes Cardiovascular: Regular rate Respiratory: Respirations even and unlabored. No increased work of breathing. Talking in full sentences Abdomen/GI: Soft, non-tender. No distention Skin: Warm, dry with normal turgor. Normal color. MS/ Extremity: Pulses equal, no cyanosis. Neurovascular intact. Full, normal range of motion. Neuro: Awake and alert, GCS 15, oriented to person, place, time, and situation. Vital Signs: 17:21 BP 179 / 93; Pulse 93; Resp 16 S; Pulse Ox 100% on R/A; Weight 69.85 kg (M); Height 5 kc6 ft. 0 in. (R); Pain 0/10; 17:21 Body Mass Index 30.08 (69.85 kg, 152.4 cm) 6 17:21 Pain Scale: Adult kc6 MDM: 17:23 Medical Screening Exam initiated bo1 17:46 Differential diagnosis: hypoglycemic episode. Data reviewed: vital signs, nurses notes. kb Historians other than the Patient: EMS: [facility]. Care significantly affected by the following chronic conditions: Diabetes. 18:14 Counseling: I had a detailed discussion with the patient and/or guardian regarding the kb historical points, exam findings, and any diagnostic results supporting the discharge/admit diagnosis, lab results, the need for outpatient follow up, a family practitioner, to return to the emergency department if symptoms worsen or persist or if there are any questions or concerns that arise at home. 09/03 17:26 Order name: Urinalysis w/ reflexes; Complete Time: 17:54 kb 09/03 17:26 Order name: CBC with Diff; Complete Time: 17:50 kb 09/03 17:26 Order name: BMP; Complete Time: 18:13 kb 09/03 17:43 Order name: Glucose, Ancillary Testing; Complete Time: 17:45 EDMS 09/03 17:56 Order name: Urine Culture EDPA 09/03 17:26 Order name: IV Start; Complete Time: 17:38 kb Administered Medications: No medications were administered Disposition Summary: 09/03/24 18:15 Discharge Ordered Notes: Location: Home kb Condition: Stable kb Diagnosis - Hypoglycemia, unspecified kb Followup: kb - With: Emergency Department - When: As needed - Reason: Worsening of condition Followup: kb - With: Private Physician - When: 2 - 3 days - Reason: Recheck today's complaints, Continuance of care, Re-evaluation by your physician Discharge Instructions: - Discharge Summary Sheet kb - Hypoglycemia, [id number] kb Forms: - Family Work Release kb - Medication Reconciliation Form kb - Antibiotic Education kb - Prescription Opioid Use kb - Patient Portal Instructions kb - Leadership Thank You Letter kb Signatures: Dispatcher [employer] Kiah Farmer FNP-C FNP-Ckb Campbell, Kaitlyn, RN RN kc6 Oei, MD ELLIOTT Dela Cruz bo1
[2024-09-03 18:50] VITALS: BP 179/93; O2SAT 100
== END 2024-09-03 18:33 | disposition home or self-care (01) ==
LOC: ER 17:15
DX: E11.649 Type 2 diabetes mellitus with hypoglycemia without coma (principal); I10 Essential (primary) hypertension
CPT/HCPCS: 36415; 80048; 81001; 82947; 85025; 87077; 87086; 87088; 87186; 99284

== ENCOUNTER 2024-12-20 23:27 | Emergency (ER) | payer OTHER ==
[2024-12-21 01:04] LABS: Absolute Basophils 0.1 K/uL (0-0.5); Absolute Eosinophils 0.2 K/uL (0-0.5); Absolute Lymphocytes (CBC) 2.3 K/uL (0.7-4.9); Absolute Monocytes 0.6 K/uL (0.1-1.3); Absolute Neutrophil 5.2 K/uL (1.8-8.0); Basophils % 0.6 % (0-1.3); Eosinophils % 2.6 % (0-4.4); Hematocrit 32.7 % (36.0-45.0); Hemoglobin 11.1 g/dL (12.0-15.0); Lymphocytes % 27.6 % (15.3-44.8); MCH 30.5 pg (27.0-35.0); MCV 89.6 fL (80-100); MPV 9.4 fL (7.6-11.3); Monocytes % 7.7 % (3.3-12.3); Neutrophils % 61.5 % (41.7-73.7); Nucleated Red Blood Cells % 0.1 % (0-0); Platelets 254 thou/uL (152-406); RBC Red Blood Cell Count 3.65 M/uL (3.86-4.86); Red Cell Distribution Width 12.5 % (12.1-15.2)
[2024-12-21 01:25] LABS: Influenza A Ag Negative; Influenza B Ag Negative; SARS-CoV-2 Antigen Rapid Res Negative (Negative)
--- NOTE | 2024-12-21 01:33 | ER ---
Nurse's Notes [facility] Name: Chasidy Smith Age: 64 yrs Sex: Female : 1960 Arrival Date: 12/20/2024 Time: 23:27 Bed 7 Private MD: Diagnosis: Bronchitis, upper respiratory infection, cough Presentation: 12/21 00:04 Chief complaint: Patient states: cough, congestion, CP, SOB, back pain X1 week. lg3 Coronavirus screen: At this time, unable to obtain information related to travel outside the [place] Ebola Screen: No symptoms or risks identified at this time. Initial Sepsis Screen: Does the patient meet any 2 criteria? No. Patient's initial sepsis screen is negative. Does the patient have a suspected source of infection? No. Patient's initial sepsis screen is negative. Risk Assessment: Do you want to hurt yourself or someone else? Patient reports no desire to harm self or others. Onset of symptoms is unknown. 00:04 Method Of Arrival: Ambulatory lg3 00:04 Acuity: RYAN 3 lg3 Triage Assessment: 00:05 General: Appears in no apparent distress. comfortable, Behavior is calm, cooperative. lg3 Pain: Complains of pain in back and chest Pain currently is 3 out of 10 on a pain scale. EENT: No deficits noted. Reports nasal congestion. Neuro: No deficits noted. Becker Agitation-Sedation Scale (RASS): 0 - Alert and Calm Level of Consciousness is awake, alert, obeys commands, Oriented to person, place, time, situation. Cardiovascular: No deficits noted. Reports chest pain, shortness of breath, Heart tones S1 S2 present Capillary refill < 3 seconds Clubbing of nail beds is absent JVD is absent Patient's skin is warm and dry. Respiratory: No deficits noted. Reports shortness of breath cough that is persistent Airway is patent Respiratory effort is even, unlabored, Respiratory pattern is regular, symmetrical, Breath sounds are clear bilaterally. GI: No deficits noted. Abdomen is round non-distended, obese. : No signs and/or symptoms were reported regarding the genitourinary system. Derm: No deficits noted. No signs and/or symptoms reported regarding the dermatologic system. Skin is intact, is healthy with good turgor, Skin is dry, Skin is normal, Skin temperature is warm. Musculoskeletal: No deficits noted. Circulation, motion, and sensation intact. Range of motion: intact in all extremities. Historical: - Allergies: 00:05 No Known Allergies; lg3 - Home Meds: 00:05 lisinopril Oral [Active]; Metformin Oral [Active]; Novolog Sub-Q [Active]; Lantus Sub-Q lg3 [Active]; - PMHx: 00:05 Diabetes - NIDDM; Hypertension; lg3 - PSHx: 00:05 section; hernia repair; lg3 - Immunization history:: Adult Immunizations up to date. - Infectious Disease History:: Denies. - Social history:: Smoking status: Patient denies any tobacco usage or history of. Patient/guardian denies using alcohol, street drugs. Screenin:21 [facility] ED Fall Risk Assessment (Adult) History of falling in the last 3 months, lg3 including since admission No falls in past 3 months (0 pts) Confusion or Disorientation No (0 pts) Intoxicated or Sedated No (0 pts) Impaired Gait No (0 pts) Mobility Assist Device Used No (0 pt) Altered Elimination No (0 pt) Score/Fall Risk Level 0 - 2 = Low Risk Oriented to surroundings, Maintained a safe environment, Educated pt \T\ family on fall prevention, incl call for assistance when getting out of bed, Assessed \T\ reinforced patient's understanding of fall precautions, Provided non-skid footwear. Abuse screen: Denies threats or abuse. Denies injuries from another. Nutritional screening: No deficits noted. Tuberculosis screening: No symptoms or risk factors identified. Assessment: 00:21 General: see triage assessment. Pain: Complains of pain in chest Pain radiates to back lg3 Pain currently is 3 out of 10 on a pain scale. Pain began 1 week ago. 01:46 Reassessment: Patient appears in no apparent distress at this time. No changes from lg3 previously documented assessment. Patient and/or family updated on plan of care and expected duration. Pain level reassessed. Patient is alert, oriented x 3, equal unlabored respirations, skin warm/dry/pink. Vital Signs: 00:04 BP 207 / 81; Pulse 88; Resp 16 S; Temp 98.8(O); Pulse Ox 99% on R/A; Weight 81.65 kg lg3 (R); Height 5 ft. 0 in. (R); Pain 3; 01:46 BP 209 / 79; Pulse 81; Resp 17 S; Pulse Ox 99% on R/A; lg3 00:04 Body Mass Index 35.15 (81.65 kg, 152.4 cm) lg3 00:04 Pain Scale: Adult lg3 ED Course: 12/20 23:30 Patient arrived in ED. jj6 23:32 Stefanie Rico MD is Attending Physician. vc1 12/21 00:03 EKG done, by ED staff, reviewed by Stefanie Rico MD. oe 00:05 Triage completed. lg3 00:05 Arm band placed on right wrist. lg3 00:14 XRAY Chest (1 view) In Process Unspecified. EDMS 00:21 Patient maintains SpO2 saturation greater than 95% on room air. lg3 00:21 Patient has correct armband on for positive identification. Placed in gown. Bed in low lg3 position. Call light in reach. Side rails up X 1. Client placed on continuous cardiac and pulse oximetry monitoring. NIBP monitoring applied. potline monitor on. Door closed. Noise minimized. Warm blanket given. Pillow given. Family accompanied patient. 00:23 Inserted saline lock: 20 gauge in right antecubital area, using aseptic technique. oe Blood collected. Flushed with 10 mL NS. 00:23 Basic Metabolic Panel Sent. oe 00:23 CBC with Diff Sent. oe 00:23 NT PRO-BNP Sent. oe 00:23 Troponin HS Sent. oe 00:23 Group A Streptococcus Rapid Sent. oe 00:23 COVID-19 Ag + Flu A+B Ag Sent. oe 01:46 Donita Sullivan, RN is Primary Nurse. lg3 01:46 No provider procedures requiring assistance completed. IV discontinued, intact, lg3 bleeding controlled, No redness/swelling at site. Pressure dressing applied. Administered Medications: 01:46 Drug: DuoNeb Nebulize (3:1) (2.5 mg - 0.5 mg) 3 ml Nebulizer once Route: Nebulizer; lg3 02:01 Follow up: Response: No adverse reaction lg3 Medication: 00:21 VIS not applicable for this client. lg3 Outcome: 01:32 Discharge ordered by . sp3 02:02 Discharged to home ambulatory, with family, lg3 02:02 Condition: stable 02:02 Discharge instructions given to patient, Instructed on discharge instructions, follow up and referral plans. medication usage, Demonstrated understanding of instructions, follow-up care, medications, Prescriptions given X 4, 02:02 Patient left the ED. lg3 Signatures: Dispatcher [employer] EDMS Anton Bhagat Lacie RN RN lg3 Stefanie Rico MD MD sp3 Nisa Carterj6 Jayla Liao RN RN vc1
--- NOTE | 2024-12-21 01:33 | EDPHYS ---
Physician Documentation [facility] Name: Chasidy Smith Age: 64 yrs Sex: Female : 1960 Arrival Date: 12/20/2024 Time: 23:27 Bed 7 Private MD: ED Physician Stefanie Rico HPI: 12/21 00:33 This 64 yrs old Female presents to ER via Ambulatory with complaints of Chest sp3 Pain, Shortness Of Breath, Back Pain. 00:33 64-year-old female with history of diabetes, hypertension that presents to the ED with sp3 chief complaint cough, congestion and dyspnea. Symptoms have been occurring for the last 2 weeks. Subjective fever noted. She denies any chest pain, abdominal pain, nausea, vomiting, diarrhea, syncope, near syncope, known sick contacts, travel history, prolonged immobilization, prior history of CHF, prior history of DVT or PE, or any other signs or symptoms on ROS at this time.. Historical: - Allergies: 00:05 No Known Allergies; lg3 - Home Meds: 00:05 lisinopril Oral [Active]; Metformin Oral [Active]; Novolog Sub-Q [Active]; Lantus Sub-Q lg3 [Active]; - PMHx: 00:05 Diabetes - NIDDM; Hypertension; lg3 - PSHx: 00:05 section; hernia repair; lg3 - Immunization history:: Adult Immunizations up to date. - Infectious Disease History:: Denies. - Social history:: Smoking status: Patient denies any tobacco usage or history of. Patient/guardian denies using alcohol, street drugs. ROS: 00:33 Constitutional: Negative for fever, chills, and weight loss, Eyes: Negative for injury, sp3 pain, redness, and discharge, Neck: Negative for injury, pain, and swelling, Cardiovascular: Negative for chest pain, palpitations, and edema, Abdomen/GI: Negative for abdominal pain, nausea, vomiting, diarrhea, and constipation, Back: Negative for injury and pain, MS/Extremity: Negative for injury and deformity, Skin: Negative for injury, rash, and discoloration, Neuro: Negative for headache, weakness, numbness, tingling, and seizure, Psych: Negative for depression, anxiety, suicide ideation, homicidal ideation, and hallucinations, Allergy/Immunology: Negative for hives, rash, and allergies, Endocrine: Negative for neck swelling, polydipsia, polyuria, polyphagia, and marked weight changes, 00:33 All other systems are negative, Exam: 00:34 Constitutional: This is a well developed, well nourished patient who is awake, alert, sp3 and in no acute distress. Head/Face: Normocephalic, atraumatic. Eyes: Pupils equal round and reactive to light, extra-ocular motions intact. Lids and lashes normal. Conjunctiva and sclera are non-icteric and not injected. Cornea within normal limits. Periorbital areas with no swelling, redness, or edema. Neck: Trachea midline, no thyromegaly or masses palpated, and no cervical lymphadenopathy. Supple, full range of motion without nuchal rigidity, or vertebral point tenderness. No Meningismus. Chest/axilla: Normal chest wall appearance and motion. Nontender with no deformity. No lesions are appreciated. Cardiovascular: Regular rate and rhythm with a normal S1 and S2. No gallops, murmurs, or rubs. Normal PMI, no JVD. No pulse deficits. Abdomen/GI: Soft, non-tender, with normal bowel sounds. No distension or tympany. No guarding or rebound. No evidence of tenderness throughout. Back: No spinal tenderness. No costovertebral tenderness. Full range of motion. Skin: Warm, dry with normal turgor. Normal color with no rashes, no lesions, and no evidence of cellulitis. MS/ Extremity: Pulses equal, no cyanosis. Neurovascular intact. Full, normal range of motion. Neuro: Awake and alert, GCS 15, oriented to person, place, time, and situation. Cranial nerves II-XII grossly intact. Motor strength 5/5 in all extremities. Sensory grossly intact. Cerebellar exam normal. Normal gait. Psych: Awake, alert, with orientation to person, place and time. Behavior, mood, and affect are within normal limits. 00:34 Respiratory: Active cough noted. Coarse breath sounds bilaterally., 00:36 ECG was reviewed by the Attending Physician. EKG demonstrates normal sinus rhythm 86 sp3 bpm with normal intervals, normal QRS, normal axis, normal ST/T-segment's without evidence of acute ischemia. Vital Signs: 00:04 BP 207 / 81; Pulse 88; Resp 16 S; Temp 98.8(O); Pulse Ox 99% on R/A; Weight 81.65 kg lg3 (R); Height 5 ft. 0 in. (R); Pain 11/19; 01:46 BP 209 / 79; Pulse 81; Resp 17 S; Pulse Ox 99% on R/A; lg3 00:04 Body Mass Index 35.15 (81.65 kg, 152.4 cm) lg3 00:04 Pain Scale: Adult lg3 MDM: 12/20 23:37 Medical Screening Exam initiated sp3 12/21 00:35 Data reviewed: vital signs, nurses notes, lab test result(s), EKG, radiologic studies. sp3 ED course: 64-year-old female with PMH above now with cough and upper respiratory symptoms. Differential diagnosis includes bronchitis, pneumonia, viral illness, COVID-19, influenza, strep pharyngitis, among others. I am not highly suspicious of PE, CHF, acute coronary syndrome, sepsis, shock or any other critical pathology. Elevated blood pressure noted. Heart rate is coming down and patient has a history of hypertension. Will obtain chest x-ray, EKG and general labs and swabs.. 01:30 ED course: Chest x-ray demonstrates no pneumonia. Swabs are negative and labs are sp3 normal. Consider bronchitis. We will discharge on Z-Lucho given risk factors for secondary infection and Tessalon Perles as well as inhaler.. 12/20 23:49 Order name: Basic Metabolic Panel; Complete Time: 01: sp3 12/20 23:49 Order name: CBC with Diff; Complete Time: : sp3 12/20 23:49 Order name: NT PRO-BNP; Complete Time: : sp3 12/20 23:49 Order name: Troponin HS; Complete Time: : sp3 12/20 23:49 Order name: COVID-19 Ag + Flu A+B Ag; Complete Time: : sp3 12/20 23:49 Order name: Group A Streptococcus Rapid; Complete Time: : 3 12/21 01:48 Order name: Throat Culture EDCA 12/20 23:49 Order name: XRAY Chest (1 view) sp3 12/20 23:49 Order name: EKG; Complete Time: 23:49 sp3 12/20 23:49 Order name: Cardiac monitoring; Complete Time: 00:03 sp3 12/20 23:49 Order name: EKG - Nurse/Tech; Complete Time: 00:02 sp3 12/20 23:49 Order name: IV Saline Lock; Complete Time: 00:23 sp3 12/20 23:49 Order name: Labs collected and sent; Complete Time: 00:23 sp3 12/20 23:49 Order name: O2 Sat Monitoring; Complete Time: 00:24 sp3 Administered Medications: 01:46 Drug: DuoNeb Nebulize (3:1) (2.5 mg - 0.5 mg) 3 ml Nebulizer once Route: Nebulizer; lg3 02:01 Follow up: Response: No adverse reaction lg3 Disposition Summary: 12/21/24 01:32 Discharge Ordered Notes: Location: Home sp3 Condition: Stable sp3 Diagnosis - Bronchitis, upper respiratory infection, cough sp3 Followup: sp3 - With: Private Physician - When: Upon discharge from the Emergency Department - Reason: Recheck today's complaints Discharge Instructions: - Discharge Summary Sheet sp3 - Acute Bronchitis, Adult sp3 Forms: - Medication Reconciliation Form sp3 - Antibiotic Education sp3 - Prescription Opioid Use sp3 - Patient Portal Instructions sp3 - Leadership Thank You Letter sp3 Prescriptions: - albuterol sulfate 90 mcg/actuation Inhalation HFA Aerosol Inhaler - inhale 2 puff INHALATION route every 4 hours; 1 Applicator; Refills: 0, Product sp3 Selection Permitted - Albuterol Sulfate 2 mg Oral Tablet - take 1 tablet ORAL route every 6 hours for 10 days; 40 tablet; Refills: 0, sp3 Product Selection Permitted - Tessalon Perles 100 mg Oral Capsule - take 1 capsule ORAL route every 8 hours As needed; 15 capsule; Refills: 0, sp3 Product Selection Permitted - Zithromax Z-Lucho 250 mg Oral Tablet - take 1 tablet ORAL route as directed for 5 days Day 1 - take two (2) tablets sp3 one time. Day 2, 3, 4 , 5 take one (1) tablet once daily.; 6 tablet; Refills: 0, Product Selection Permitted Signatures: Dispatcher [employer] Donita Sterling RN RN lg3 Stefanie Rico MD MD sp3 Corrections: (The following items were deleted from the chart) 12/20 23:49 23:49 BASIC METABOLIC PANEL+C.LAB.BRZ ordered. EDMS EDMS :49 23:49 CBC+H.LAB.BRZ ordered. EDMS EDMS 23:49 23:49 PROBNP+C.LAB.BRZ ordered. EDMS EDMS :49 23:49 Troponin High Sensitivity+C.LAB.BRZ ordered. EDMS EDMS :49 23:49 COVID-19 Ag + Flu A+B Ag+I.LAB.BRZ ordered. EDMS EDMS :49 23:49 Group A Streptococcus Rapid Sc+I.LAB.BRZ ordered. EDMS EDMS
[2024-12-21] MEDS ORDERED: IPRATROPIUM BROM 0.5MG/2.5ML ONE (01:39)
[2024-12-21] MEDS ORDERED: ALBUTEROL 2.5 MG/3 ML NEB SOL ONE (01:39)
[2024-12-21 02:53] VITALS: TEMP 98.8; O2SAT 99
[2024-12-21 02:58] VITALS: BP 209/79
--- NOTE | 2024-12-21 03:42 | RAD REPORT ---
EXAMINATION: ONE VIEW CHEST XR CLINICAL INDICATION: Female, 64 years old.,Congestion;Cough TECHNIQUE: Frontal chest projection is submitted. Examination is limited by patient positioning and t echnique. COMPARISON: 10/25/2023 FINDINGS: The lungs are well inflated and clear. No pneumothorax or sizable effusion. The heart is normal in s ize. Mediastinal contours are unremarkable. IMPRESSION: No acute intrathoracic abnormalities.
--- NOTE | 2024-12-21 14:14 | EKG ---
Test Date: 2024-12-20 Test Time: 23:57:47 [facility]: FLEX MEASUREMENT RESULTS: Intervals: Rate: 86 TN: 150 QRSD: 74 QT: 360 QTc: 430 [place]: P: 41 TN: 150 QRS: 66 T: 19 INTERPRETIVE STATEMENTS: Normal sinus rhythm Normal ECG Compared to ECG 02/04/2024 05:36:26 ST (T wave) deviation no longer present Prolonged QT interval no longer present Electronically Signed On 12-21-24 14:12:32 CDT by Moreno Saldana
== END 2024-12-21 02:02 | disposition home or self-care (01) ==
LOC: ER 23:27
DX: J40 Bronchitis, not specified as acute or chronic (principal); Z11.52 Encounter for screening for COVID-19
CPT/HCPCS: 93005; 87070; 85025; 80048; 36415; 84484; 83880; 71045; 99285; 87428; J7613; J7644

== ENCOUNTER 2025-04-22 06:04 | Day surgery (SDC) | payer OTHER ==
[2025-04-18 14:11] LABS: Absolute Lymphocytes (CBC) 1.9 K/uL (0.7-4.9); Hematocrit 32.7 % (36.0-45.0); Hemoglobin 11.0 g/dL (12.0-15.0); MCH 30.6 pg (27.0-35.0); MCHC 33.6 g/dL (32.0-36.0); MCV 91.1 fL (80-100); MPV 9.3 fL (7.6-11.3); Nucleated RBC Absolute Count 0.0 (0-0); Nucleated Red Blood Cells % 0.1 % (0-0); RBC Red Blood Cell Count 3.59 M/uL (3.86-4.86); White Blood Count 6.80 thou/uL (4.3-10.9)
[2025-04-18 14:27] LABS: ALT/SGPT 17.0 U/L (13-56); AST/SGOT 12.0 U/L (15-37); Albumin 3.6 g/dL (3.4-5.0); Albumin/Globulin Ratio 1.1 (1.1-1.8); Alkaline Phosphatase 88.0 U/L (45-117); Anion Gap 7.8 mEq/L (5.0-15.0); BUN Blood Urea Nitrogen 19.0 mg/dL (7-18); Globulin 3.4 g/dL (2.3-3.5); Glucose Level 181.0 mg/dL (74-106); Potassium 4.8 mEq/L (3.5-5.1)
[2025-04-18 14:31] LABS: PT Prothrombin Time 11.6 SECONDS (10-13.0); PTT, Activated Partial Thromb 29.9 SECONDS (27.2-37.4); Protime INR 1.03
[2025-04-22] MEDS ORDERED: ROCURONIUM 50 MG/5 ML VIAL IV ONE (06:14)
[2025-04-22] MEDS ORDERED: KETOROLAC 30 MG/ML INJ ONE (06:14)
[2025-04-22] MEDS ORDERED: ONDANSETRON 4 MG/2 ML VIAL ONE (06:14)
[2025-04-22] MEDS ORDERED: FENTANYL CITR 100 MCG/2 ML ONE (06:14)
[2025-04-22] MEDS ORDERED: LIDOCAINE 2% MPF 5 ML VIAL ONE (06:14)
[2025-04-22] MEDS ORDERED: MIDAZOLAM HCL 2 MG/2 ML INJ ONE (06:14)
[2025-04-22] MEDS ORDERED: NA CHLORIDE 0.9% 1,000 ML ONE (06:25)
[2025-04-22] MEDS ORDERED: DEPO-MEDROL 40 MG/ML IM ONE (06:30)
[2025-04-22] MEDS: CEFAZOLIN SODIUM 2 GM/VIAL ONE (07:15)
[2025-04-22] MEDS: THROMBIN 5000 UNITS/VIAL TOP ONE (07:41)
[2025-04-22] MEDS ORDERED: NS 0.9% VIAL 20 ML ONE (07:43)
[2025-04-22] MEDS ORDERED: NS 0.9% VIAL 10 ML ONE (08:13)
[2025-04-22] MEDS: VANCOMYCIN 1 GM/VIAL ONE (08:47)
[2025-04-22] MEDS ORDERED: Mastisol Adhesive Liq ONE (09:03)
[2025-04-22] MEDS: HYDROMORPHONE HCL 1 MG/ML INJ ONE ×2 (09:33→09:53)
[2025-04-22] MEDS: FENTANYL CITR 100 MCG/2 ML ONE (09:43)
--- NOTE | 2025-04-22 09:49 | RAD REPORT ---
Exam: Fluoroscopy less than one hour Clinical history lumbar spine decompression FINDINGS: Fluoroscopy time 0 5 fluoroscopic spot images submitted Please refer to the surgeons report for findings
[2025-04-22] MEDS ORDERED: HYDROCODONE/APAP 7.5/325 MG TAB PO ONE (09:54)
[2025-04-22] MEDS: LABETALOL 20 MG/4ML SYRINGE IV ONE (10:03)
[2025-04-22] MEDS ORDERED: HYDROCODONE/APAP 7.5/325 MG TAB ONE (10:49)
[2025-04-22 13:12] VITALS: BP 153/66
[2025-04-22 13:14] VITALS: TEMP 97; O2SAT 99
== END 2025-04-22 11:50 | disposition home or self-care (01) ==
LOC: OR 06:04
PROVIDERS: ATTEND Orthopaedic Surgery
PROC: 01NB0ZZ Release Lumbar Nerve, Open Approach (ICD-10-PCS; principal; 2025-04-22 07:00)
DX: M48.061 Spinal stenosis, lumbar region without neurogenic claudication (principal); E11.9 Type 2 diabetes mellitus without complications; I10 Essential (primary) hypertension; Z86.73 Personal history of transient ischemic attack (TIA), and cerebral infarction without residual deficits
CPT/HCPCS: 63047; 63048; 85025; 36415; 85610; 82947 ×2; 85730; 83036; 80053; A4216 ×2; J2704 ×2; J2003; J2250; J3010 ×2; J3370; J1100; J1171 ×2; J2405; J7030; 76000; J1010

== ENCOUNTER 2025-06-02 20:32 | Emergency (ER) | payer OTHER ==
[2025-06-02 22:20] LABS: Absolute Lymphocytes (CBC) 3.1 K/uL (0.7-4.9); Hematocrit 32.0 % (36.0-45.0); Hemoglobin 10.9 g/dL (12.0-15.0); MCH 30.8 pg (27.0-35.0); MCHC 34.0 g/dL (32.0-36.0); MCV 90.5 fL (80-100); MPV 8.5 fL (7.6-11.3); Nucleated RBC Absolute Count 0.0 (0-0); Nucleated Red Blood Cells % 0.1 % (0-0); RBC Red Blood Cell Count 3.53 M/uL (3.86-4.86); White Blood Count 8.00 thou/uL (4.3-10.9)
[2025-06-02 22:42] LABS: Anion Gap 9.2 mEq/L (5.0-15.0); BUN Blood Urea Nitrogen 25 mg/dL (7-18); Glucose Level 214 mg/dL (74-106); Potassium 4.2 mEq/L (3.5-5.1)
[2025-06-02 22:43] LABS: Troponin High Sensitivity < 3.0 pg/mL (<58.9)
[2025-06-02] MEDS ORDERED: ONDANSETRON 4 MG/2 ML VIAL ONE (22:46)
[2025-06-02] MEDS ORDERED: HYDROMORPHONE HCL 0.5 MG/0.5 ML INJ ONE (22:46)
--- NOTE | 2025-06-03 00:19 | EDPHYS ---
Physician Documentation [facility] Name: Chasidy Smith Age: 65 yrs Sex: Female : 1960 Arrival Date: 06/02/2025 Time: 20:32 Bed 4 Private MD: ED Physician Justin Winter Historical: - Allergies: 06/02 20:51 No Known Drug Allergies; me1 - PMHx: 20:51 Diabetes - NIDDM; Hypertension; me1 - PSHx: 20:51 section; hernia repair; back surgery; compression fx L1 and L5 (Unknown); me1 - Immunization history:: Adult Immunizations up to date. - Infectious Disease History:: Denies. - Social history:: Smoking status: Patient denies any tobacco usage or history of. Vital Signs: 20:48 BP 156 / 68; Pulse 103; Resp 18; Temp 98.3; Pulse Ox 99% ; Weight 83.91 kg; Height 5 me1 ft. 0 in. ; Pain 10/10; 23:30 BP 152 / 80; Pulse 100; Resp 16; Pulse Ox 100% ; vc1 06/03 00:45 BP 144 / 86; Pulse 94; Resp 17 S; Pulse Ox 100% on R/A; lg3 06/02 20:48 Body Mass Index 36.13 (83.91 kg, 152.4 cm) tn1 06/02 20:48 Pain Scale: Adult me1 MDM: 06/02 21:30 Medical Screening Exam initiated cp 06/03 08:28 ED course: I have reviewed and independently interpreted the patient's EKG performed on tt7 06/02/2025 at 2058. On my interpretation, sinus tachycardia, ventricular rate 101 bpm, normal axis, intraventricular conduction delay, normal ST segments, no STEMI. 06/02 22:08 Order name: Basic Metabolic Panel; Complete Time: 22:59 [facility] 06/02 22:08 Order name: CBC with Diff; Complete Time: 22:59 [facility] 06/02 22:08 Order name: Troponin HS; Complete Time: 22:59 [facility] 06/02 22:08 Order name: XRAY Chest (1 view) [facility] 06/02 22:08 Order name: EKG; Complete Time: 22:09 [facility] 06/02 22:08 Order name: Cardiac monitoring; Complete Time: 22:08 vc1 06/02 22:08 Order name: EKG - Nurse/Tech; Complete Time: 22:08 vc1 06/02 22:08 Order name: IV Saline Lock; Complete Time: 22:08 vc1 06/02 22:08 Order name: Labs collected and sent; Complete Time: 22:08 vc1 06/02 22:08 Order name: O2 Per Protocol; Complete Time: 22:08 vc1 06/02 22:08 Order name: O2 Sat Monitoring; Complete Time: 22:08 vc1 Administered Medications: 06/02 22:53 Drug: Ondansetron IVP 4 mg IVP once; over 2 minutes Route: IVP; Site: right antecubital;lg3 06/03 00:43 Follow up: Response: No adverse reaction lg3 06/02 22:54 Drug: HYDROmorphone IVP 0.5 mg IVP once Route: IVP; Site: right antecubital; lg3 06/03 00:43 Follow up: Response: No adverse reaction lg3 00:34 Drug: HYDROmorphone IVP 0.5 mg IVP once Route: IVP; Site: right antecubital; vc1 00:44 Follow up: Response: No adverse reaction lg3 Disposition Summary: 06/03/25 00:18 Discharge Ordered Notes: Location: Home tt7 Problem: new tt7 Symptoms: have improved tt7 Condition: Stable tt7 Diagnosis - Chest pain, unspecified tt7 - SACRAL PAIN tt7 Followup: tt7 - With: Emergency Department - When: As needed - Reason: Followup: tt7 - With: Private Physician - When: 2 - 3 days - Reason: Recheck today's complaints, Re-evaluation by your physician Discharge Instructions: - Discharge Summary Sheet tt7 - Chest Wall Pain tt7 - Nonspecific Chest Pain, Adult, [id number] tt7 Forms: - Medication Reconciliation Form tt7 - Antibiotic Education tt7 - Prescription Opioid Use tt7 - Patient Portal Instructions tt7 - Leadership Thank You Letter tt7 Prescriptions: - methocarbamol 500 mg Oral tablet - take 1 tablet ORAL route every 8 hours; 20 tablet; Refills: 0, Product tt7 Selection Permitted Signatures: Dispatcher [employer] EDDevante Villatoro PA-C PA-C cp Able, Lacie, RN RN lg3 Jayla Liao RN RN vc1 Angelita Reina, RN RN me1 Justin Winter, DO ONEIL tt7
--- NOTE | 2025-06-03 00:19 | ER ---
Nurse's Notes [facility] Name: Chasidy Smith Age: 65 yrs Sex: Female : 1960 Arrival Date: 06/02/2025 Time: 20:32 Bed 4 Private MD: Diagnosis: Chest pain, unspecified;SACRAL PAIN Presentation: 06/02 20:48 Chief complaint: Patient states: right sided chest pain that radiates to right upper me1 back that started Tuesday and has worsened. Pain 06/21. Also c/o pain to sacrum "feels swollen when I sit down". Denies n/v/d. Coronavirus screen: Vaccine status: Patient reports receiving the 2nd dose of the covid vaccine. Ebola Screen: No symptoms or risks identified at this time. Initial Sepsis Screen: Does the patient meet any 2 criteria? HR > 90 bpm. Does the patient have a suspected source of infection? No. Patient's initial sepsis screen is negative. Risk Assessment: Do you want to hurt yourself or someone else? Patient reports no desire to harm self or others. Onset of symptoms was May 31, 2025. 20:48 Method Of Arrival: Ambulatory me1 20:48 Acuity: RYAN 3 me1 Historical: - Allergies: 20:51 No Known Drug Allergies; me1 - PMHx: 20:51 Diabetes - NIDDM; Hypertension; me1 - PSHx: 20:51 section; hernia repair; back surgery; compression fx L1 and L5 (Unknown); me1 - Immunization history:: Adult Immunizations up to date. - Infectious Disease History:: Denies. - Social history:: Smoking status: Patient denies any tobacco usage or history of. Screenin:00 [facility] ED Fall Risk Assessment (Adult) History of falling in the last 3 months, lg3 including since admission No falls in past 3 months (0 pts) Confusion or Disorientation No (0 pts) Intoxicated or Sedated No (0 pts) Impaired Gait No (0 pts) Mobility Assist Device Used No (0 pt) Altered Elimination No (0 pt) Score/Fall Risk Level 0 - 2 = Low Risk Oriented to surroundings, Maintained a safe environment, Educated pt \\T\\ family on fall prevention, incl call for assistance when getting out of bed, Assessed \\T\\ reinforced patient's understanding of fall precautions. Abuse screen: Denies threats or abuse. Denies injuries from another. Nutritional screening: No deficits noted. Tuberculosis screening: No symptoms or risk factors identified. Assessment: 21:00 General: Appears in no apparent distress. uncomfortable, Behavior is calm, cooperative. lg3 Pain: Complains of pain in anterior aspect of right upper chest and gluteal cleft Pain does not radiate. Pain began gradually. Neuro: No deficits noted. Becker Agitation-Sedation Scale (RASS): 0 - Alert and Calm Level of Consciousness is awake, alert, obeys commands, Oriented to person, place, time, situation. Cardiovascular: Reports chest pain, Heart tones S1 S2 present Capillary refill < 3 seconds Clubbing of nail beds is absent JVD is absent Patient's skin is warm and dry. Respiratory: No deficits noted. Airway is patent Respiratory effort is even, unlabored, Respiratory pattern is regular, symmetrical. GI: No deficits noted. No signs and/or symptoms were reported involving the gastrointestinal system. : No deficits noted. No signs and/or symptoms were reported regarding the genitourinary system. EENT: No deficits noted. No signs and/or symptoms were reported regarding the EENT system. Derm: Skin is intact, is healthy with good turgor, Skin is dry, Skin is normal, Skin temperature is warm Reports pain. Musculoskeletal: No deficits noted. No signs and/or symptoms reported regarding the musculoskeletal system. Circulation, motion, and sensation intact. Range of motion: intact in all extremities. 23:57 Reassessment: Patient appears in no apparent distress at this time. No changes from vc1 previously documented assessment. Patient and/or family updated on plan of care and expected duration. Pain level reassessed. Patient is alert, oriented x 3, equal unlabored respirations, skin warm/dry/pink. 06/03 00:44 Reassessment: Patient appears in no apparent distress at this time. No changes from lg3 previously documented assessment. Patient and/or family updated on plan of care and expected duration. Pain level reassessed. Patient is alert, oriented x 3, equal unlabored respirations, skin warm/dry/pink. Patient states feeling better. Patient states symptoms have improved. Vital Signs: 06/02 20:48 BP 156 / 68; Pulse 103; Resp 18; Temp 98.3; Pulse Ox 99% ; Weight 83.91 kg; Height 5 me1 ft. 0 in. ; Pain 10/10; 23:30 BP 152 / 80; Pulse 100; Resp 16; Pulse Ox 100% ; vc1 06/03 00:45 BP 144 / 86; Pulse 94; Resp 17 S; Pulse Ox 100% on R/A; lg3 06/02 20:48 Body Mass Index 36.13 (83.91 kg, 152.4 cm) me1 06/02 20:48 Pain Scale: Adult [facility] ED Course: 06/02 20:35 Patient arrived in ED. im 20:51 Triage completed. me1 20:51 Arm band placed on Patient placed in waiting room. me1 21:00 Patient has correct armband on for positive identification. Placed in gown. Bed in low lg3 position. Call light in reach. Side rails up X 1. Client placed on continuous cardiac and pulse oximetry monitoring. NIBP monitoring applied. monitor worker on. Door closed. Noise minimized. Warm blanket given. Pillow given. Family accompanied patient. 21:00 Inserted saline lock: 20 gauge in right antecubital area, using aseptic technique. lg3 Blood collected. Flushed with 10 mL NS. Patient maintains SpO2 saturation greater than 95% on room air. 21:26 EKG done, by ED staff, reviewed by Justin Winter DO. me1 21:29 Devante Lomas PA-C is PHCP. cp 21:29 Justin Winter DO is Attending Physician. cp 22:15 Justin Winter DO is Attending Physician. tt7 22:51 Donita Sullivan, RN is Primary Nurse. lg3 23:04 XRAY Chest (1 view) In Process Unspecified. EDMS 06/03 00:45 No provider procedures requiring assistance completed. IV discontinued, intact, lg3 bleeding controlled, No redness/swelling at site. Pressure dressing applied. Administered Medications: 06/02 22:53 Drug: Ondansetron IVP 4 mg IVP once; over 2 minutes Route: IVP; Site: right antecubital;lg3 06/03 00:43 Follow up: Response: No adverse reaction lg3 06/02 22:54 Drug: HYDROmorphone IVP 0.5 mg IVP once Route: IVP; Site: right antecubital; lg3 06/03 00:43 Follow up: Response: No adverse reaction lg3 00:34 Drug: HYDROmorphone IVP 0.5 mg IVP once Route: IVP; Site: right antecubital; vc1 00:44 Follow up: Response: No adverse reaction lg3 Medication: 06/02 21:00 VIS not applicable for this client. lg3 Outcome: 06/03 00:18 Discharge ordered by . tt7 00:45 Discharged to home ambulatory, with family, lg3 00:45 Condition: stable 00:45 Discharge instructions given to patient, Instructed on discharge instructions, follow up and referral plans. medication usage, Demonstrated understanding of instructions, follow-up care, medications, Prescriptions given X 1, 00:46 Patient left the ED. lg3 Signatures: Dispatcher [employer] EDMS Devante Lomas PA-C PA-C cp Able, Lacie, RN RN lg3 Jayla Liao RN RN vc1 Kaylee Castanon Michelle, RN RN me1 Justin Winter, DO tt7
[2025-06-03] MEDS ORDERED: HYDROMORPHONE HCL 0.5 MG/0.5 ML INJ ONE (00:26)
[2025-06-03 01:25] VITALS: TEMP 98.3
[2025-06-03 01:27] VITALS: BP 144/86; O2SAT 100
--- NOTE | 2025-06-03 05:46 | RAD REPORT ---
EXAM: XR CHEST 1 VIEW DATE: 06/02/2025 10:08 PM CDT INDICATION: Chest Pain COMPARISON: None TECHNIQUE: Frontal chest radiograph FINDINGS: The lungs are clear. The cardiomediastinal silhouette is normal. There is no acute bony abnormality. IMPRESSION: No acute abnormality Electronically signed by: Juliana Stark MD 06/02/2025 11:47 PM CDT RP [id number] Due to temporary technical issues with the PACS/Seeq reporting system, reports are being franklyn d by the in-house radiologist without review as a courtesy to ensure prompt reporting the interpreting radiologist is fully responsible for the content of the report. Transcribed Date/Time: 06/03/2025 5:46 AM
== END 2025-06-03 00:46 | disposition home or self-care (01) ==
LOC: ER 20:32
DX: R07.9 Chest pain, unspecified (principal); M53.3 Sacrococcygeal disorders, not elsewhere classified
CPT/HCPCS: 93005; 85025; 80048; 36415; 84484; 71045; 96375; 96374; 99285; J1171 ×2; J2405